=== PATIENT | female | born 1995 | race Caucasian/White ===

== ENCOUNTER 2022-12-18 20:08 | Outpatient (REF) | payer OTHER, SELFPAY ==
[2022-12-25 16:10] LABS: Pap IG (Image Guided) Note (.)
== END 2022-12-18 20:09 | disposition home or self-care (01) ==
LOC: LAB 20:08
PROVIDERS: Visit Provider Obstetrics & Gynecology
DX: R87.610 Atypical squamous cells of undetermined significance on cytologic smear of cervix (ASC-US) (principal)
CPT/HCPCS: G0145

== ENCOUNTER 2022-12-24 09:11 | Outpatient (OUT) | payer OTHER, SELFPAY ==
--- NOTE | 2022-12-24 09:36 | US_ITS ---
The [address] [address] Patient Name: DOREEN MARQUEZ MRN: [id number] date: 1995 Sex: F Assigned Patient Location: Current Patient Location: Accession/Order Number: [id number] Exam Date: 12/24/2022 09:40 Report Date: 12/24/2022 10:43 At the request of: GILLES DIEGO Procedure: US pelvis transvaginal EXAM: Pelvic ultrasound HISTORY: . Irregular Periods N92.6 . COMPARISON: None. TECHNIQUE: Transvaginal scanning was performed FINDINGS: Scanning of the pelvis demonstrates an anteverted uterus measuring 8.5 x 4.3 x 3.3 cm. Endometrial complex measures 8 mm. Left ovary measures 5 x 3 x 2.4 cm. Color-flow is noted. Follicles are noted. Right ovary measures 4.9 x 3 x 2.7 cm. Color-flow is noted. Follicles are noted. No fluid is noted in the cul-de-sac. US/US pelvis transvaginal IMPRESSION: 1. Normal-appearing uterus and endometrial complex. 2. Normal-appearing ovaries. Electronically authenticated by: NAYA LO Date: 12/24/2022 10:43
[2022-12-24 10:11] LABS: Basophils Absolute Auto 0.1 10^3/uL (0.0-0.1); Basophils Percent Auto 0.9 % (0.2-2.0); Eosinophils Absolute Auto 0.3 10^3/uL (0.0-0.7); Eosinophils Percent Auto 2.1 % (0.9-7.0); Hematocrit 42.2 % (36.0-48.0); Immature Granulocytes Abs Auto 0.05 10^3/uL (0.00-0.03); Immature Granulocytes Pct Auto 0.4 % (0.0-0.5); Lymphocytes Absolute Auto 4.2 10^3/uL (1.2-3.8); Lymphocytes Percent Auto 35.8 % (20.5-60.0); Mean Corpuscular HGB Conc 30.8 g/dL (29.9-35.2); Mean Corpuscular Volume 81.3 fL (81.0-99.0); Mean Platelet Volume 10.2 fL (9.5-13.5); Neutrophils Absolute Auto 6.2 10^3/uL (1.4-6.5); Neutrophils Percent Auto 52.8 % (43.0-75.0); Platelet Count 371 10^3/uL (150-450); Red Blood Count 5.19 10^6/uL (4.20-5.40); Red Cell Distribution Width 14.9 % (11.0-15.0); White Blood Count 11.8 10^3/uL (4.0-11.0)
[2022-12-24 10:22] LABS: Free T4 1.01 ng/dL (0.76-1.46)
[2022-12-24 10:27] LABS: HCG Quantitative <1 mIU/mL; Thyroid Stimulating Hormone 1.103 uIU/mL (0.358-3.740)
[2022-12-24 11:19] LABS: Estimated Average Glucose 117 mg/dL; Glycohemoglobin A1C 5.7 % (4.5-6.2)
[2022-12-25 04:07] LABS: FSH 5.2 mIU/mL (.); Luteinizing Hormone(LH) 11.8 mIU/mL (.)
[2022-12-27 12:10] LABS: DHEA, Serum 338 ng/dL (31-701)
== END 2022-12-24 09:12 | disposition home or self-care (01) ==
PROVIDERS: Visit Provider Obstetrics & Gynecology
DX: N92.6 Irregular menstruation, unspecified (principal)
CPT/HCPCS: 36415; 76830; 82626; 82627; 83001; 83002; 83036; 84439; 84443; 84702; 85025

== ENCOUNTER 2023-10-21 11:56 | Outpatient (OUT) | payer OTHER, SELFPAY ==
--- NOTE | 2023-10-21 12:01 | US_ITS ---
[address] [address] Patient Name: DOREEN MARQUEZ MRN: [id number] date: 1995 Sex: F Assigned Patient Location: US Current Patient Location: US Accession/Order Number: [id number] Exam Date: 10/21/2023 12:03 Report Date: 10/21/2023 12:45 At the request of: GILLES DIEGO Procedure: US OB transvaginal EXAMINATION: US OB transvaginal HISTORY: Spotting in early COMPARISON: No relevant comparison available. FINDINGS: Transvaginal images Wood intrauterine gestation Gestational sac: 1.60 cm, 5 weeks 6 days CRL: 5.4 mm, 6 weeks 2 days Yolk sac: 1.6 mm Heart rate: 125 beats minute Cervix: Closed, 5.0 cm The uterus is normal, anteverted The ovaries are normal Clinical age: Unknown Ultrasound age: 6 weeks 2 days Ultrasound MARIELLA: 06/13/2024 US/US OB transvaginal IMPRESSION: Viable wood intrauterine gestation measuring 6 weeks 2 days Electronically authenticated by: NAYA FREEMAN Date: 10/21/2023 12:45
== END 2023-10-21 11:57 | disposition home or self-care (01) ==
LOC: US 11:56
PROVIDERS: Visit Provider Obstetrics & Gynecology
DX: O26.851 Spotting complicating pregnancy, first trimester (principal); Z3A.01 Less than 8 weeks gestation of pregnancy
CPT/HCPCS: 76817

== ENCOUNTER 2023-11-22 08:48 | Outpatient (OUT) | payer OTHER, SELFPAY ==
[2023-11-22 09:27] LABS: Basophils Absolute Auto 0.1 10^3/uL (0.0-0.1); Basophils Percent Auto 0.4 % (0.2-2.0); Eosinophils Absolute Auto 0.2 10^3/uL (0.0-0.7); Eosinophils Percent Auto 1.5 % (0.9-7.0); Hematocrit 39.4 % (36.0-48.0); Hemoglobin 12.8 g/dL (12.0-16.0); Immature Granulocytes Abs Auto 0.04 10^3/uL (0.00-0.03); Immature Granulocytes Pct Auto 0.3 % (0.0-0.5); Lymphocytes Absolute Auto 3.4 10^3/uL (1.2-3.8); Lymphocytes Percent Auto 26.5 % (20.5-60.0); Mean Corpuscular HGB Conc 32.5 g/dL (29.9-35.2); Mean Corpuscular Hemoglobin 25.7 pg (26.7-34.0); Mean Platelet Volume 10.6 fL (9.5-13.5); Monocytes Percent Auto 7.4 % (1.7-12.0); Neutrophils Absolute Auto 8.3 10^3/uL (1.4-6.5); Neutrophils Percent Auto 63.9 % (43.0-75.0); Platelet Count 345 10^3/uL (150-450); Red Blood Count 4.99 10^6/uL (4.20-5.40); Red Cell Distribution Width 14.8 % (11.0-15.0); White Blood Count 12.9 10^3/uL (4.0-11.0)
[2023-11-22 09:32] LABS: Estimated Average Glucose 108 mg/dL; Glycohemoglobin A1C 5.4 % (4.5-6.2)
[2023-11-23 06:10] LABS: HBsAg Screen Negative (Negative); HCV Ab Non Reactive (Non Reactive); HIV Ab/p24 Ag Screen Non Reactive (Non Reactive)
[2023-11-23 07:09] LABS: Rubella Antibodies, IgG 2.35 index (Immune >0.99)
[2023-11-23 10:12] LABS: Rapid Plasma Reagin, Quant Non Reactive titer (NonRea<1:1)
== END 2023-11-22 08:49 | disposition home or self-care (01) ==
LOC: LAB 08:50
PROVIDERS: Visit Provider Obstetrics & Gynecology
DX: N92.6 Irregular menstruation, unspecified (principal)
CPT/HCPCS: 36415; 83036; 85025; 86592; 86762; 86803; 86850; 86900; 86901; 87086; 87340; 87389

== ENCOUNTER 2023-12-11 07:46 | Outpatient (OUT) | payer OTHER, SELFPAY ==
--- OUTSIDE RECORDS SUMMARY | 2023-12-11 07:53 | XMS_ITS | CCD ---
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 Role Phone FIDENCIO ANDRES Primary Care Unavailable FIDENCIO ANDRES Attending Unavailable FIDENCIO ANDRES Admitting Unavailable JOHNATHON, DR CAMPOVERDE Admitting Unavailable JOHNATHON, DR CAMPOVERDE Consulting Unavailable JOHNATHON, DR CAMPOVERDE Attending Unavailable FIDENCIO ANDRES Primary Care Unavailable Ny Allison APRN, CNP Primary Care [facility] [place]EL Referring Unavailable [place]EL Primary Care Unavailable Problems Problem Classification Problem Date Documented Date Episodic/Chronic Immunizations and screening for infectious disease (1 source) Encounter for screening for human papillomavirus (HPV); Translations: [ENC SCREENING HUMAN PAPILLOMAVIRUS] Onset: 12-17-2021 Episodic Other screening for suspected conditions (not mental disorders or infectious disease) (10 sources) Encounter for screening for malignant neoplasm of cervix; Translations: [Patient encounter status] Onset: 12-14-2021 Episodic Results Test Name Value Interpretation Reference Range [facility] ity Lipid Profileon 10-04-2022 Cholesterol [Mass/Vol] 172 mg/dL Normal <200 [facility] Comment on above: Result Comment: Cholesterol Guidelines: <200 Desirable 200-240 Borderline >240 Undesirable Performed By: #### L IPR #### [facility] [address] [place], [place] [id number] Senior Corporate Recruiter: Erik Redding MD Cholesterol in HDL [Mass/Vol] 36 mg/dL Low >40 [facility] Comment on above: Result Comment: HDL Guidelines: <40 Undesirable 40-59 Borderline >59 Desirable Performed By: #### L IPR #### [facility] [address] [place] [address] Senior Corporate Recruiter: Erik Redding MD Cholesterol in LDL [Mass/Vol] 79 mg/dL Normal 0-130 [facility] Comment on above: Result Comment: LDL Guidelines: <100 Desirable 100-129 Near to/above Desirable 130-159 Borderline >159 Undesirable Direct (measured) LDL and calculated LDL are not interchangeable tests. Performed By: #### L IPR #### [address] [address] Senior Corporate Recruiter: Erik Redding MD Cholesterol.total/Ch olesterol in HDL [Mass ratio] 4.8 {ratio} Normal <5 [facility] Comment on above: Performed By: #### L IPR #### [address] [address] Senior Corporate Recruiter: Erik Redding MD Triglyceride [Mass/Vol] 285 mg/dL High <150 [facility] Comment on above: Result Comment: Triglyceride Guidelines: <150 Desirable 150-199 Borderline 200-499 High >499 Very high Based on AHA Guidelines for fasting triglyceride, December 2011. Performed By: #### L IPR #### [address] [address] Senior Corporate Recruiter: Erik Redding MD T3, Freeon 10-04-2022 Free T3 [Mass/Vol] 3.76 pg/mL Normal 2.02-4.43 [facility] Comment on above: Performed By: #### F T3 #### [address] [address] Senior Corporate Recruiter: Erik Redding MD #### CMPF #### [facility] [address] [place] [address] Senior Corporate Recruiter: Hemant Murphy MD Comp Metabol,Fastingon 10-03 Albumin [Mass/Vol] 4.6 g/dL Normal 3.5-5.2 [facility] Comment on above: Performed By: #### F T3 #### [address] [address] Senior Corporate Recruiter: Erik Redding MD #### CMPF #### [facility] [address] [place], [place] [id number] Senior Corporate Recruiter: Hemant Murphy MD Albumin/Glob Ratio 1.3 Normal 1.0-2.5 [facility] Comment on above: Performed By: #### F T3 #### [facility] [address] [place] [address] Senior Corporate Recruiter: Erik Redding MD #### CMPF #### [facility] [address] [place], [place] [id number] Senior Corporate Recruiter: Hemant Murphy MD Alkaline Phos 91 U/L Normal 35-104 [facility] Comment on above: Performed By: #### F T3 #### [address] [place] [address] Senior Corporate Recruiter: Eirk Redding MD #### CMPF #### [facility] [address] [place] [address] [place] [place], [place] [phone] Senior Corporate Recruiter: Hemant Murphy MD ALT [Catalytic activity/Vol] 39 U/L High 5-33 [facility] Comment on above: Performed By: #### F T3 #### [facility] [address] [place] [address] Senior Corporate Recruiter: Erik Redding MD #### CMPF #### [facility] [address] [place] [address] [place], [place] [id number] Senior Corporate Recruiter: Hemant Murphy MD Anion gap [Moles/Vol] 13 mmol/L Normal 9-17 [facility] Comment on above: Performed By: #### F T3 #### [address] [address] Senior Corporate Recruiter: Eirk Redding MD #### CMPF #### [facility] [address] [place] [address] [place] [place], [place] [phone] Senior Corporate Recruiter: Hemant Murphy MD AST [Catalytic activity/Vol] 34 U/L High <32 [facility] Comment on above: Performed By: #### F T3 #### [facility] [address] [place] [address] Senior Corporate Recruiter: Erik Redding MD #### CMPF #### [facility] [address] [place], [place] [phone] Senior Corporate Recruiter: Hemant Murphy MD Bilirubin [Mass/Vol] 0.8 mg/dL Normal 0.3-1.2 [facility] Comment on above: Performed By: #### F T3 #### [address] [place] [address] Senior Corporate Recruiter: Erik Redding MD #### CMPF #### [facility] [address] [place] [phone] Senior Corporate Recruiter: Hemant Murphy MD BUN/CRE Ratio 20 Normal 9-20 [facility] Comment on above: Performed By: #### F T3 #### [address] [place] [address] Senior Corporate Recruiter: Erik Redding MD #### CMPF #### [facility] [address] [place] [address] [address] [place], [place] [phone] Senior Corporate Recruiter: Hemant Murphy MD Calcium [Mass/Vol] 9.2 mg/dL Normal 8.6-10.4 [facility] Comment on above: Performed By: #### F T3 #### [facility] [address] [place] [address] Senior Corporate Recruiter: Erik Redding MD #### CMPF #### [facility] [address] [place], [place] [address] Senior Corporate Recruiter: Hemant Murpyh MD Chloride [Moles/Vol] 101 mmol/L Normal 98-107 [facility] Comment on above: Performed By: #### F T3 #### [address] [place] [address] Senior Corporate Recruiter: Erik Redding MD #### CMPF #### [facility] [address] [place] [address] Senior Corporate Recruiter: Hemant Murphy MD CO2 [Moles/Vol] 22 mmol/L Normal 20-31 [facility] Comment on above: Performed By: #### F T3 #### [address] [address] Senior Corporate Recruiter: Erik Redding MD #### CMPF #### [facility] [address] [place] [address] Senior Corporate Recruiter: Hemant Murphy MD Creatinine [Mass/Vol] 0.54 mg/dL Normal 0.50-0.90 [facility] Comment on above: Performed By: #### F T3 #### [address] [address] Senior Corporate Recruiter: Erik Redding MD #### CMPF #### [facility] [address] [place] [address] [place] [address] Senior Corporate Recruiter: Hemant Murphy MD GFR/1.73 sq M.predicted among non-blacks MDRD (S/P/Bld) [Vol rate/Area] mL/min/{1.73_m2} Normal >60 [facility] Comment on above: Result Comment: These results are not intended for use in patients <18 years of age. eGFR results are calculated without a race factor using the 2020 CKD-EPI equation. Careful clinical correlation is recommended, particularly when comparing to results calculated using previous equations. The CKD-EPI equation is less accurate in patients with extremes of muscle mass, extra-renal metabolism of creatine, excessive creatine ingestion, or following therapy that affects renal tubular secretion. Performed By: #### F T3 #### [address] [address] Senior Corporate Recruiter: Erik Redding MD #### CMPF #### [address] [place], [place] [phone] Senior Corporate Recruiter: Hemant Murphy MD Glucose [Mass/Vol] 88 mg/dL Normal 70-99 [facility] Comment on above: Performed By: #### F T3 #### [address] [address] Senior Corporate Recruiter: Erik Redding MD #### CMPF #### [address] [place], [place] [phone] Senior Corporate Recruiter: Hemant Murphy MD Potassium [Moles/Vol] 4.3 mmol/L Normal 3.7-5.3 [facility] Comment on above: Performed By: #### F T3 #### [address] [address] Senior Corporate Recruiter: Erik Redding MD #### CMPF #### [address] [place], [place] [phone] Senior Corporate Recruiter: Hemant Murphy MD Protein [Mass/Vol] 8.1 g/dL Normal 6.4-8.3 [facility] Comment on above: Performed By: #### F T3 #### [address] [address] Senior Corporate Recruiter: Erik Redding MD #### CMPF #### [address] [place] [address] Senior Corporate Recruiter: Hemant Murphy MD Sodium [Moles/Vol] 136 mmol/L Normal 135-144 [facility] Comment on above: Performed By: #### F T3 #### [address] [address] Senior Corporate Recruiter: Erik Redding MD #### CMPF #### [address] [place], [place] [phone] Senior Corporate Recruiter: Hemant Murphy MD Urea nitrogen [Mass/Vol] 11 mg/dL Normal 6-20 [facility] Comment on above: Performed By: #### F T3 #### [facility] [employer] [address] [place], [place] [phone] Senior Corporate Recruiter: Erik Redding MD #### CMPF #### [facility] [address] [place] [address] Senior Corporate Recruiter: Hemant Murphy MD Comprehensive Metabolic Pane l, Fastingon 10-03-2022 Albumin [Mass/Vol] 4.6 g/dL 3.5 - 5.2 g/dL [facility] Albumin/Globulin [Mass ratio] 1.3 {ratio} 1.0 - 2.5 [facility] ALP [Catalytic activity/Vol] 91 U/L 35 - 104 U/L [facility] ALT [Catalytic activity/Vol] 39 U/L High 5 - 33 U/L [facility] Anion gap [Moles/Vol] 13 mmol/L 9 - 17 mmol/L [facility] AST [Catalytic activity/Vol] 34 U/L High NINF - 32 U/L [facility] Bilirubin [Mass/Vol] 0.8 mg/dL 0.3 - 1.2 mg/dL [facility] Calcium [Mass/Vol] 9.2 mg/dL 8.6 - 10. 4 mg/dL [facility] Chloride [Moles/Vol] 101 mmol/L 98 - 107 mmol/L [facility] CO2 [Moles/Vol] 22 mmol/L 20 - 31 mmol/L [facility] Creatinine [Mass/Vol] 0.54 mg/dL 0.50 - 0.90 mg/dL [facility] GFR/1.73 sq M.predicted MDRD (S/P/Bld) [Vol rate/Area] - PINF [facility] Comment on above: These results are not intended for use in patients <18 years of age. eGFR results are calculated without a race factor using the 2020 CKD-EPI equation. Careful clinical correlation is recommended, particularly when comparing to results calculated using previous equations. The CKD-EPI equation is less accurate in patients with extremes of muscle mass, extra-renal metabolism of creatine, excessive creatine ingestion, or following therapy that affects renal tubular secretion. Glucose post fast [Mass/Vol] 88 mg/dL 70 - 99 mg/dL [facility] Interpretation and review of laboratory results Abnormal [facility] Potassium [Moles/Vol] 4.3 mmol/L 3.7 - 5.3 mmol/L [facility] Protein [Mass/Vol] 8.1 g/dL 6.4 - 8.3 g/dL [facility] Sodium [Moles/Vol] 136 mmol/L 135 - 144 mmol/L [facility] Urea nitrogen [Mass/Vol] 11 mg/dL 6 - 20 mg/dL [facility] [employer] Urea nitrogen/Creatinine [Mass ratio] 20 mg/mg 9 - 20 [facility] Lipid Panelon 10-03-2022 Cholesterol [Mass/Vol] 172 mg/dL NINF - 200 mg/dL [facility] Comment on above: Cholesterol Guidelines: <200 Desirable 200-240 Borderline >240 Undesirable Cholesterol in HDL [Mass/Vol] 36 mg/dL Low 40 - PINF mg/dL [facility] [employer] Comment on above: HDL Guidelines: <40 Undesirable 40-59 Borderline >59 Desirable Cholesterol in LDL [Mass/Vol] 79 mg/dL 0 - 130 mg/dL [facility] Comment on above: LDL Guidelines: <100 Desirable 100-129 Near to/above Desirable 130-159 Borderline >159 Undesirable Direct (measured) LDL and calculated LDL are not interchangeable tests. Cholesterol.total/Ch olesterol in HDL [Mass ratio] 4.8 {ratio} NINF - 5 [facility] Interpretation and review of laboratory results Abnormal [facility] Triglyceride [Mass/Vol] 285 mg/dL High NINF - 150 mg/dL [facility] [employer] Comment on above: Triglyceride Guidelines: <150 Desirable 150-199 Borderline 200-499 High >499 Very high Based on AHA Guidelines for fasting triglyceride, December 2011. [facility] [employer] T3, Freeon 10-03-2022 Free T3 [Mass/Vol] 3.76 pg/mL 2.02 - 4. 43 pg/mL [facility] TSH With Reflex Ft4on 2022 TSH Qn 1.66 m[IU]/L [facility] TSH w/reflex to FT4on 2022 Thyroid Stim. Horm. 1.66 uIU/mL Normal 0.30-5.00 [facility] Comment on above: Performed By: #### T SHX #### [facility] [address] [place], [facility] Senior Corporate Recruiter: Hemant Murphy MD PAP ACOG PANEL 2: 21 to 29on 12-20-2021 . . Normal [facility] Comment on above: Performed By: #### [id number] #### [facility] [address] [place] [address] Dr. Sachin Pereira Age Gdln ACOG Testing - [facility] Comment on above: Performed By: #### [id number] #### [facility] [address] [place] [address] Dr. Sachin Pereira DIAGNOSIS: Comment [facility] Comment on above: Result Comment: NEGA TIVE FOR INTRAEPITHELIAL LESION OR MALIGNANCY. Performed By: #### [id number] #### [facility] [address] [place] [address] Dr. Sachin Pereira Methodology: Comment [facility] Comment on above: Result Comment: This liquid based ThinPrep(R) pap test was screened with the use of an image guided system. Performed By: #### [id number] #### [facility] [address] [place] [address] Dr. Sachin Pereira Note: Comment [facility] Comment on above: Result Comment: The Pap smear is a screening test designed to aid in the detection of premalignant and malignant conditions of the uterine cervix. It is not a diagnostic procedure and should not be used as the sole means of detecting cervical cancer. Both false-positive and false-negative reports do occur. . Performed By: #### [id number] #### [facility] [address] [place] [address] Dr. Sachin Pereira Performed by: Comment Normal [facility] Comment on above: Result Comment: Collette Holliday, [employer] (ASCP) Performed By: #### [id number] #### [facility] [address] [address] [address] Sachin Pereira Reflex Criteria: Comment Normal [facility] Comment on above: Result Comment: The HPV DNA reflex criteria were not met with this specimen result therefore, no HPV testing was performed. . Performed By: #### [id number] #### [facility] [address] [address] [address] Sachin Pereira Specimen adequacy: Comment Normal [facility] Comment on above: Result Comment: Sati sfactory for evaluation. Endocervical and/or squamous metaplastic cells (endocervical component) are present. Performed By: #### 4 [id number] #### [facility] [address] [address] [address] Sachin Pereira Encounters Encounter Date Encounter Type Care Provider Facility Start: 11-08-2023 End: 11-08-2023 ambulatory Not Available Start: 10-03-2022 End: 10-04-2022 ambulatory [place] [facility] Start: 10-03-2022 End: 10-03-2022 Subsequent hospital visit by physician Ny Guillory CNP Work Phone: [facility] Comment on above: Screening for hypoth yroidism; Diabetes mellitus screening; Lipid screening Start: 12-14-2021 End: 12-14-[address] GILLES DIEGO Facility:H1 Start: 02-10-2021 ambulatory FID[place]IO [place] y:H1 Procedures Date Procedure Procedure Detail Performing Clinician Start: 10-03-2022 End: 10-03-2022 Assay of triiodothyronine t3 free Ny Guillory CNP Work Phone: Start: 10-03-2022 Lipid panel Ny Michael APRN - APRIL Work Phone: Plan of Treatment Date Care Activity Detail Author Start: 10-09-2023 End: 10-09-2023 Patient encounter procedure 10/09/2023 Office Visit Primary Care Ny Michael, CROP PRODUCTION ADVISOR - ENDOSCOPE TECHNICIAN [address] [id number] [facility] Start: 10-02-2023 Depression Screen Depression Screen [facility] Start: 10-02-2023 DTaP/Tdap/Td vaccine (1 - Tdap) DTaP/Tdap/Td vaccine (1 - Tdap) [facility] Comment on above: Postponed from 07/16 (Patient Refused) Start: 10-02-2023 Hepatitis C screening Hepatitis C sc reen [facility] Comment on above: Postponed from 07/16 (Patient Refused) Start: 10-02-2023 HIV screening HIV screen [facility] Comment on above: Postponed from 07/16 (Patient Refused) Start: 10-02-2023 HPV vaccine (1 - 2-d ose series) HPV vaccine (1 - 2-dose series) [facility] Comment on above: Postponed from 07/16 (Patient Refused) Start: 10-30-2022 Influenza vaccination Flu vaccine (# 1) [facility] Start: 05-01-2021 COVID-19 Vaccine (2 - Booster for Kinga series) COVID-19 Vaccine (2 - Booster for Kinga series) [facility] Start: 2017 Screening for malign ant neoplasm of cervix Pap smear [facility] Immunizations Immunization Date Immunization Notes Care Provider Fa cility 03-06-2021 COVID-19, J&J, (age 18y+), IM, 0.5 mL Ny Michael APRN - ENDOSCOPE TECHNICIAN Work Phone: [facility] Payers Date Payer Category Payer Private Health Insurance [id number] 1995 Unknown [id number] [id number] 1995 Unknown [id number] [id number] 1995 Unknown [id number] 1995 Unknown [id number] 1958 Self-pay [id number] 1958 Unknown [id number] Social History Date Type Detail Facility Start: 10-01-2022 [facility] [employer] End: 05-30-2021 History of tobacco use Current smoker [employer] End: 05-30-2021 History of tobacco use Cigarette Smoker [facility] History of tobacco use Tobacco U se Types Packs/Day Years Used Date Smoking Tobacco: Former Cigarettes 0.5 5 Quit: 05/2021 E-Cigarettes Smokeless Tobacco: Never [facility] [employer] Start: 10-01-2022 Cigarettes smoked current (pack per day) - Reported 0.5 [facility] Start: 10-01-2022 Tobacco use and exposure Smokeless tobacco non-user [facility] Start: 10-01-2022 Alcohol intake Ex-drinker (finding) [facility] Start: 10-01-2022 History SDOH Physica l Activity DPW 3 [employer] [employer] Start: 10-01-2022 History SDOH Physica l Activity MPS 6 [facility] Start: 10-01-2022 History SDOH Financial 5 [facility] Start: 10-01-2022 History SDOH Food Worry 1 [employer] Start: 10-01-2022 History SDOH Transpo rt Non-Med 2 [facility] Start: 10-01-2022 Alcohol Comment Socially [facility] Start: 1995 Sex Assigned At Female B ON [employer] Evaluation note Note Date & Type Note Facility Evaluation note Diagnosis Screening for hypothyroidism Screening for thyroid disorder Diabetes mellitus screening Screening for diabetes mellitus Lipid screening Screening for lipoid disorders documented in this encounter [facility] Summary Purpose Family History No Family History Records FoundNo Family History Records FoundNo Family History Records Found Advance Directives No Advanced Directives Records FoundNo Advanced Directives Records FoundNo Advanced Directives Records Found Additional Source Comments INFORMATION SOURCE (unrecogn ized section and content) DATE CREATED AUTHOR 12/29/2021 [facility] DATE CREATED AUTHOR AUTHOR'S ORGANIZ ATION 10/04/2022 [facility] DATE CREATED AUTHOR AUTHOR'S ORGANIZ ATION 11/10/2023 [facility] dical Specialists [facility] Care Teams (unrecognized sec tion and content) [employer] Job Setter Relationship Specialty Start Date End Date Ny Michael, CROP PRODUCTION ADVISOR - ENDOSCOPE TECHNICIAN [address] [place] [address] PCP - General Certified Nurse Practitioner 10/01/22 FOR RECORDS PERTAINING TO PATIENTS WHO ARE OR HAVE BEEN ENROLLED IN A CHEMICAL DEPENDENCY/SUBSTANCEABUSE PROGRAM, SOME INFORMATION MAY BE OMITTED. This clinical summary was aggregated from multiple sources. Caution should be exercised in using it in the provision of clinical care. This summary normalizes information from multiple sources, and as a consequence, information in this document may materially change the coding, format and clinical context of patient data. In addition, data may be omitted in some cases. CLINICAL DECISIONS SHOULD BE BASED ON THE PRIMARY CLINICAL RECORDS. [employer] provides no warranty or guarantee of the accuracy or completeness of information in this document.
[2023-12-11 09:19] LABS: Glucose 1 Hour 131 mg/dL (<130)
== END 2023-12-11 07:47 | disposition home or self-care (01) ==
LOC: LAB 07:47
PROVIDERS: Visit Provider Obstetrics & Gynecology
DX: Z13.1 Encounter for screening for diabetes mellitus (principal)
CPT/HCPCS: 36415; 82950

== ENCOUNTER 2023-12-26 19:38 | Outpatient (REF) | payer OTHER, SELFPAY ==
--- OUTSIDE RECORDS SUMMARY | 2023-12-26 19:41 | XMS_ITS | CCD ---
Author Organization [facility] Informat ion Partnership [facility] Care Team Providers Care Reel System Operator Name Role Phone FIDENCIO ANDRES Primary Care Unavailable FIDENCIO ANDRES Attending Unavailable FIDENCIO ANDRES Admitting Unavailable JOHNATHON, DR CAMPOVERDE Admitting Unavailable JOHNATHON, DR CAMPOVERDE Consulting Unavailable JOHNATHON, DR CAMPOVERDE Attending Unavailable FIDENCIO ANDRES Primary Care Unavailable Ny Allison APRN, CNP Primary Care [facility] [place] Referring Unavailable [place] [...] Results Test Name Value Interpretation Reference Range [facility] Lipid Profileon 10-04-2022 Cholesterol [Mass/Vol] 172 mg/dL Normal <200 [facility] Comment on above: Result Comment: Cholesterol Guidelines: <200 Desirable 200-240 Borderline >240 Undesirable Performed By: #### L IPR #### [facility] [address] [place], [place] [id number] Icing Coater: Erik Redding MD Cholesterol in HDL [Mass/Vol] 36 mg/dL Low >40 [facility] Comment on above: Result Comment: HDL Guidelines: <40 Undesirable 40-59 Borderline >59 Desirable Performed By: #### L IPR #### [facility] [address] [place] [address] Icing Coater: Erik Redding MD Cholesterol in LDL [Mass/Vol] 79 mg/dL Normal 0-130 [facility] Comment on above: Result Comment: LDL Guidelines: <100 Desirable 100-129 Near to/above Desirable 130-159 Borderline >159 Undesirable Direct (measured) LDL and calculated LDL are not interchangeable tests. Performed By: #### L IPR #### [address] [address] Icing Coater: Erik Redding MD Cholesterol.total/Ch olesterol in HDL [Mass ratio] 4.8 {ratio} Normal <5 [facility] Comment on above: Performed By: #### L IPR #### [address] [address] Icing Coater: Erik Redding MD Triglyceride [Mass/Vol] 285 mg/dL High <150 [facility] Comment on above: Result Comment: Triglyceride Guidelines: <150 Desirable 150-199 Borderline 200-499 High >499 Very high Based on AHA Guidelines for fasting triglyceride, December 2011. Performed By: #### L IPR #### [address] [address] Icing Coater: Erik Redding MD T3, Freeon 10-04-2022 Free T3 [Mass/Vol] 3.76 pg/mL Normal 2.02-4.43 [facility] Comment on above: Performed By: #### F T3 #### [address] [address] Icing Coater: Erik Redding MD #### CMPF #### [facility] [address] [place] [address] Icing Coater: Hemant Murphy MD Comp Metabol,Fastingon 10-03 Albumin [Mass/Vol] 4.6 g/dL Normal 3.5-5.2 [facility] Comment on above: Performed By: #### F T3 #### [address] [address] Icing Coater: Erik Redding MD #### CMPF #### [facility] [address] [place], [place] [id number] Icing Coater: Hemant Murphy MD Albumin/Glob Ratio 1.3 Normal 1.0-2.5 [facility] Comment on above: Performed By: #### F T3 #### [facility] [address] [place] [address] Icing Coater: Erik Redding MD #### CMPF #### [facility] [address] [place], [place] [id number] Icing Coater: Hemant Murphy MD Alkaline Phos 91 U/L Normal 35-104 [facility] Comment on above: Performed By: #### F T3 #### [address] [place] [address] Icing Coater: Erik Redding MD #### CMPF #### [facility] [address] [place] [address] [place] [place], [place] [phone] Icing Coater: Hemant Murphy MD ALT [Catalytic activity/Vol] 39 U/L High 5-33 [facility] Comment on above: Performed By: #### F T3 #### [facility] [address] [place] [address] Icing Coater: Erik Redding MD #### CMPF #### [facility] [address] [place] [address] Dr. [place], [place] [phone] Icing Coater: Hemant Murphy MD Anion gap [Moles/Vol] 13 mmol/L Normal 9-17 [facility] Comment on above: Performed By: #### F T3 #### [address] [address] Icing Coater: Erik Redding MD #### CMPF #### [facility] [address] [place] [address] [address] [place], [place] [phone] Icing Coater: Hemant Murphy MD AST [Catalytic activity/Vol] 34 U/L High <32 [facility] Comment on above: Performed By: #### F T3 #### [facility] [address] [place] [address] Icing Coater: Erik Redding MD #### CMPF #### [facility] [address] [place], [place] [phone] Icing Coater: Hemant Murphy MD Bilirubin [Mass/Vol] 0.8 mg/dL Normal 0.3-1.2 [facility] Comment on above: Performed By: #### F T3 #### [address] [place] [address] Icing Coater: Erik Redding MD #### CMPF #### [facility] [address] [place] [phone] Icing Coater: Hemant Murphy MD BUN/CRE Ratio 20 Normal 9-20 [facility] Comment on above: Performed By: #### F T3 #### [address] [place] [address] Icing Coater: Erik Redding MD #### CMPF #### [facility] [address] [place] [address] Dr. [place], [place] [phone] Icing Coater: Hemant Murphy MD Calcium [Mass/Vol] 9.2 mg/dL Normal 8.6-10.4 [facility] Comment on above: Performed By: #### F T3 #### [facility] [address] [place] [address] Icing Coater: Erik Redding MD #### CMPF #### [facility] [address] [place], [place] [phone] Icing Coater: Hemant Murphy MD Chloride [Moles/Vol] 101 mmol/L Normal 98-107 [facility] Comment on above: Performed By: #### F T3 #### [address] [place] [address] Icing Coater: Erik Redding MD #### CMPF #### [facility] [address] [place] [address] Icing Coater: Hemant Murphy MD CO2 [Moles/Vol] 22 mmol/L Normal 20-31 [facility] Comment on above: Performed By: #### F T3 #### [address] [address] Icing Coater: Erik Redding MD #### CMPF #### [facility] [address] [place] [address] Icing Coater: Hemant Murphy MD Creatinine [Mass/Vol] 0.54 mg/dL Normal 0.50-0.90 [facility] Comment on above: Performed By: #### F T3 #### [address] [address] Icing Coater: Erik Redding MD #### CMPF #### [facility] [address] [place] [address] [place] [address] Icing Coater: Hemant Murphy MD GFR/1.73 sq M.predicted among non-blacks MDRD (S/P/Bld) [Vol rate/Area] mL/min/{1.73_m2} Normal >60 [facility] Comment on above: Result Comment: These [...] secretion. Performed By: #### F T3 #### [address] [address] Icing Coater: Erik Redding MD #### CMPF #### [address] [place], [place] [phone] Icing Coater: Hemant Murphy MD Glucose [Mass/Vol] 88 mg/dL Normal 70-99 [facility] Comment on above: Performed By: #### F T3 #### [address] [address] Icing Coater: Erik Redding MD #### CMPF #### [address] [place], [place] [address] Icing Coater: Hemant Murphy MD Potassium [Moles/Vol] 4.3 mmol/L Normal 3.7-5.3 [facility] Comment on above: Performed By: #### F T3 #### [address] [address] Icing Coater: Erik Redding MD #### CMPF #### [address] [place], [place] [address] Icing Coater: Hemant Murphy MD Protein [Mass/Vol] 8.1 g/dL Normal 6.4-8.3 [facility] Comment on above: Performed By: #### F T3 #### [address] [address] Icing Coater: Erik Redding MD #### CMPF #### [address] [place] [address] Icing Coater: Hemant Murphy MD Sodium [Moles/Vol] 136 mmol/L Normal 135-144 [facility] Comment on above: Performed By: #### F T3 #### [address] [address] Icing Coater: Erik Redding MD #### CMPF #### [address] [place], [place] [address] Icing Coater: Hemant Murphy MD Urea nitrogen [Mass/Vol] 11 mg/dL Normal 6-20 [facility] Comment on above: Performed By: #### F T3 #### [facility] [employer] [address] [place], [place] [id number] Icing Coater: Erik Redding MD #### CMPF #### [facility] [address] [place] [address] Icing Coater: Hemant Murphy MD Comprehensive Metabolic Pane l, Fastingon 10-03-2022 Albumin [Mass/Vol] 4.6 g/dL 3.5 - 5.2 g/dL [facility] Albumin/Globulin [Mass ratio] 1.3 {ratio} 1.0 - 2.5 [facility] ALP [Catalytic activity/Vol] 91 U/L 35 - 104 U/L [facility] ALT [Catalytic activity/Vol] 39 U/L High 5 - 33 U/L [facility] Anion gap [Moles/Vol] 13 mmol/L 9 - 17 mmol/L [facility] AST [Catalytic activity/Vol] 34 U/L High NINF - 32 U/L [facility] Bilirubin [Mass/Vol] 0.8 mg/dL 0.3 - 1.2 mg/dL [facility] Calcium [Mass/Vol] 9.2 mg/dL 8.6 - 10. 4 mg/dL [facility] Chloride [Moles/Vol] 101 mmol/L 98 - 107 mmol/L [facility] CO2 [Moles/Vol] 22 mmol/L 20 - 31 mmol/L [facility] Creatinine [Mass/Vol] 0.54 mg/dL 0.50 - 0.90 mg/dL [facility] GFR/1.73 sq M.predicted MDRD (S/P/Bld) [Vol rate/Area] - PINF [facility] Comment on above: These results are not [...] [Mass/Vol] 88 mg/dL 70 - 99 mg/dL [facility] Interpretation and review of laboratory results Abnormal [facility] Potassium [Moles/Vol] 4.3 mmol/L 3.7 - 5.3 mmol/L [facility] Protein [Mass/Vol] 8.1 g/dL 6.4 - 8.3 g/dL [facility] Sodium [Moles/Vol] 136 mmol/L 135 - 144 mmol/L [facility] Urea nitrogen [Mass/Vol] 11 mg/dL 6 - 20 mg/dL [facility] [place] Urea nitrogen/Creatinine [Mass ratio] 20 mg/mg 9 - 20 [facility] Lipid Panelon 10-03-2022 Cholesterol [Mass/Vol] 172 mg/dL NINF - 200 mg/dL [facility] Comment on above: Cholesterol Guidelines: <200 Desirable 200-240 Borderline >240 Undesirable Cholesterol in HDL [Mass/Vol] 36 mg/dL Low 40 - PINF mg/dL [facility] [place] Comment on above: HDL Guidelines: <40 Undesirable 40-59 Borderline >59 Desirable Cholesterol in LDL [Mass/Vol] 79 mg/dL 0 - 130 mg/dL [facility] Comment on above: LDL Guidelines: <100 Desirable 100-129 Near to/above Desirable 130-159 Borderline >159 Undesirable Direct (measured) LDL and calculated LDL are not interchangeable tests. Cholesterol.total/Ch olesterol in HDL [Mass ratio] 4.8 {ratio} NINF - 5 [facility] Interpretation and review of laboratory results Abnormal [facility] Triglyceride [Mass/Vol] 285 mg/dL High NINF - 150 mg/dL [facility] [place] Comment on above: Triglyceride Guidelines: <150 Desirable 150-199 Borderline 200-499 High >499 Very high Based on AHA Guidelines for fasting triglyceride, December 2011. [facility] [place] T3, Freeon 10-03-2022 Free T3 [Mass/Vol] 3.76 pg/mL 2.02 - 4. 43 pg/mL [facility] TSH With Reflex Ft4on 2022 TSH Qn 1.66 m[IU]/L [facility] TSH w/reflex to FT4on 2022 Thyroid Stim. Horm. 1.66 uIU/mL Normal 0.30-5.00 [facility] Comment on above: Performed By: #### T SHX #### [facility] [address] [place], [id number] Icing Coater: Hemant Murphy MD PAP ACOG PANEL 2: 21 to 29on 12-20-2021 . . Normal [facility] Comment on above: Performed By: #### 4 [id number] #### [facility] [address] [place] [address] Dr. Sachin Pereira Age Gdln ACOG Testing - [facility] Comment on above: Performed By: #### 4 [id number] #### [facility] [address] [place] [address] Dr. Sachin Pereira DIAGNOSIS: Comment [facility] Comment on above: Result Comment: NEGA TIVE FOR INTRAEPITHELIAL LESION OR MALIGNANCY. Performed By: #### 4 [id number] #### [facility] [address] [place] [address] Dr. Sachin Pereira Methodology: Comment [facility] Comment on above: Result Comment: This liquid based ThinPrep(R) pap test was screened with the use of an image guided system. Performed By: #### 4 [id number] #### [facility] [address] [place] [address] Dr. Sachin Pereira Note: Comment [facility] Comment on above: Result Comment: The Pap smear is a screening test designed to aid in the detection of premalignant and malignant conditions of the uterine cervix. It is not a diagnostic procedure and should not be used as the sole means of detecting cervical cancer. Both false-positive and false-negative reports do occur. . Performed By: #### 4 [id number] #### [facility] [address] [place] [address] Dr. Sachin Pereira Performed by: Comment Normal [facility] Comment on above: Result Comment: Collette Holliday, Photo Retoucher (ASCP) Performed By: #### 4 [id number] #### [facility] [address] [address] [address] Sachin Pereira Reflex Criteria: Comment Normal [facility] Comment on above: Result Comment: The HPV DNA reflex criteria were not met with this specimen result therefore, no HPV testing was performed. . Performed By: #### 4 [id number] #### [facility] [address] [address] [address] Sachin Pereira Specimen adequacy: Comment Normal [facility] Comment on above: Result Comment: Sati sfactory for evaluation. Endocervical and/or squamous metaplastic cells (endocervical component) are present. Performed By: #### 4 [id number] #### [facility] [address] [address] [address] Sahcin Pereira Encounters Encounter Date Encounter Type Care Provider Facility Start: 11-08-2023 End: 11-08-2023 ambulatory Not Available Start: 10-03-2022 End: 10-04-2022 ambulatory [place] [facility] Start: 10-03-2022 End: 10-03-2022 Subsequent hospital visit by physician Ny Guillory CNP Work Phone: [facility] Comment on above: Screening for hypoth [...] 10/09/2023 Office Visit Primary Care Ny Michael, PUBLIC POLICY COORDINATOR - DONOR TECHNICIAN [address] [phone] [facility] Start: 10-02-2023 Depression Screen Depression Screen [facility] Start: 10-02-2023 DTaP/Tdap/Td vaccine (1 - Tdap) DTaP/Tdap/Td vaccine (1 - Tdap) [facility] Comment on above: Postponed from 07/16 (Patient Refused) Start: 10-02-2023 Hepatitis C screening Hepatitis C sc reen [facility] Comment on above: Postponed from 07/16 (Patient Refused) Start: 10-02-2023 HIV screening HIV screen [facility] Comment on above: Postponed from 07/16 (Patient Refused) Start: 10-02-2023 HPV vaccine (1 - 2-d ose series) HPV vaccine (1 - 2-dose series) [facility] Comment on above: Postponed from 07/16 (Patient Refused) Start: 10-30-2022 Influenza vaccination Flu vaccine (# 1) [facility] Start: 05-01-2021 COVID-19 Vaccine (2 - Booster for Kinga series) COVID-19 Vaccine (2 - Booster for Kinga series) [facility] Start: 2017 Screening for malign ant neoplasm of cervix Pap smear [facility] Immunizations Immunization Date Immunization Notes Care Provider Fa cility 03-06-2021 COVID-19, J&J, (age 18y+), IM, 0.5 mL Ny Michael APRN - DONOR TECHNICIAN Work Phone: [facility] Payers Date Payer Category Payer Private Health Insurance [id number] 1996 Unknown [id number] [id number] 1996 Unknown [id number] 1996 Unknown [id number] 1996 Unknown [id number] 1959 Self-pay [id number] 1959 Unknown [id number] Social History Date Type Detail Facility Start: 10-01-2022 [facility] End: 05-30-2021 History of tobacco use Current smoker [employer] End: 05-30-2021 History of tobacco use Cigarette Smoker [employer] [facility] History of tobacco use Tobacco U se Types Packs/Day Years Used Date Smoking Tobacco: Former Cigarettes 0.5 5 Quit: 05/2021 E-Cigarettes Smokeless Tobacco: Never [facility] [employer] Start: 10-01-2022 Cigarettes smoked current (pack per day) - Reported 0.5 [facility] Start: 10-01-2022 Tobacco use and exposure Smokeless tobacco non-user [facility] Start: 10-01-2022 Alcohol intake Ex-drinker (finding) [facility] Start: 10-01-2022 History SDOH Physica l Activity DPW 3 [facility] Start: 10-01-2022 History SDOH Physica l Activity MPS 6 [facility] Start: 10-01-2022 History SDOH Financial 5 [facility] Start: 10-01-2022 History SDOH Food Worry 1 [employer] [facility] Start: 10-01-2022 History SDOH Transpo rt Non-Med 2 [employer] [facility] Start: 10-01-2022 Alcohol Comment Socially [employer] Start: 1995 Sex Assigned At Female B ON [employer] Evaluation note Note Date & Type Note Facility Evaluation note Diagnosis Screening for hypothyroidism Screening for thyroid disorder Diabetes mellitus screening Screening for diabetes mellitus Lipid screening Screening for lipoid disorders documented in this encounter [facility] Summary Purpose Family History No Family History [...] DATE CREATED AUTHOR AUTHOR'S ORGANIZ ATION 11/10/2023 [facility] Care Teams (unrecognized sec tion and content) Reel System Operator Relationship Specialty Start Date End Date Ny Michael, PUBLIC POLICY COORDINATOR - DONOR TECHNICIAN [address] [place] [address] PCP - General Certified Nurse Practitioner 10/01/22 [...] BE BASED ON THE PRIMARY CLINICAL RECORDS. [employer] provides no warranty or guarantee of the accuracy or completeness of information in this document.
[2024-01-02 11:11] LABS: Age Gdln ACOG Testing Note (.); IGP, rfx Aptima HPV ASCU Note (.)
== END 2023-12-26 19:39 | disposition home or self-care (01) ==
LOC: LAB 19:38
PROVIDERS: Visit Provider Obstetrics & Gynecology
DX: Z01.419 Encounter for gynecological examination (general) (routine) without abnormal findings (principal)
CPT/HCPCS: 88175

== ENCOUNTER 2024-01-23 09:58 | Outpatient (OUT) | payer OTHER, SELFPAY ==
--- NOTE | 2024-01-23 10:01 | US_ITS ---
[address] [address] Patient Name: DOREEN MARQUEZ MRN: [id number] date: 1995 Sex: F Assigned Patient Location: [facility] Current Patient Location: [facility] Accession/Order Number: [id number] Exam Date: 01/23/2024 10:03 Report Date: 01/23/2024 11:30 At the request of: GILLES DIEGO Procedure: US OB anatomy EXAMINATION: US OB anatomy, US OB cervical length HISTORY: ANATOMY COMPARISON: Ultrasound OB transvaginal 10/21/2023 TECHNIQUE: Transabdominal sonographic examination was performed for obstetrical and evaluation. FINDINGS: Number: 1 Heart Rate: 149 bpm H.B. /min Amniotic Fluid Volume: Subjectively normal Placental Location: ANTERIOR with lower margin 4.0 cm from os. Cervix Length: 4.01 cm ; closed. ANATOMY: Normal Structures -cerebellum, choroid plexus, cisterna magna, lateral cerebral ventricles, orbits, midline falx, hard palate, four-chamber heart, RVOT, LVOT, stomach, kidneys, bladder, right upper extremity, left upper extremity, right lower extremity, left lower extremity. SUBOPTIMALLY SEEN: Umbilical arteries, three-vessel cord, spine ABNORMALITIES: None BIOMETRY: BPD: 4.42 cm; 136 Day; 15.30 % HC: 17.23 cm; 139 Day; 20.90 % AC: 15.42 cm; 144 Day; 54.90 % FL: 3.51 cm; 148 Day; 70 % EFW:326.21 g; 67.20 % FL/AC: 22.76 FL/BPD: 79.41 HC/AC: 1.12 GESTATIONAL AGE: Age by EDC: 20 weeks 2 days Age by current US: 20 weeks 2 days MARIELLA by current US: 2024-06-09 MARIELLA by EDC: 2024-06-09 US/US OB anatomy IMPRESSION: 1. Single live intrauterine with growth detailed above. 2. Suboptimal visualization of the umbilical arteries, three-vessel cord, and spine due to position. Electronically authenticated by: PETRONA GANDHI Date: 01/23/2024 11:30
--- NOTE | 2024-01-23 10:01 | US_ITS ---
[address] [address] Patient Name: DOREEN MARQUEZ MRN: [id number] date: 1995 Sex: F Assigned Patient Location: [facility] Current Patient Location: [facility] Accession/Order Number: [id number] Exam Date: 01/23/2024 10:03 Report Date: 01/23/2024 11:30 At the request of: GILLES DIEGO Procedure: US OB cervical length EXAMINATION: US OB anatomy, US OB cervical length HISTORY: ANATOMY COMPARISON: Ultrasound OB transvaginal 10/21/2023 TECHNIQUE: Transabdominal sonographic examination was performed for obstetrical and evaluation. FINDINGS: Number: 1 Heart Rate: 149 bpm H.B. /min Amniotic Fluid Volume: Subjectively normal Placental Location: ANTERIOR with lower margin 4.0 cm from os. Cervix Length: 4.01 cm ; closed. ANATOMY: Normal Structures -cerebellum, choroid plexus, cisterna magna, lateral cerebral ventricles, orbits, midline falx, hard palate, four-chamber heart, RVOT, LVOT, stomach, kidneys, bladder, right upper extremity, left upper extremity, right lower extremity, left lower extremity. SUBOPTIMALLY SEEN: Umbilical arteries, three-vessel cord, spine ABNORMALITIES: None BIOMETRY: BPD: 4.42 cm; 136 Day; 15.30 % HC: 17.23 cm; 139 Day; 20.90 % AC: 15.42 cm; 144 Day; 54.90 % FL: 3.51 cm; 148 Day; 70 % EFW:326.21 g; 67.20 % FL/AC: 22.76 FL/BPD: 79.41 HC/AC: 1.12 GESTATIONAL AGE: Age by EDC: 20 weeks 2 days Age by current US: 20 weeks 2 days MARIELLA by current US: 2024-06-09 MARIELLA by EDC: 2024-06-09 US/US OB cervical length IMPRESSION: 1. Single live intrauterine with growth detailed above. 2. Suboptimal visualization of the umbilical arteries, three-vessel cord, and spine due to position. Electronically authenticated by: PETRONA GANDHI Date: 01/23/2024 11:30
--- OUTSIDE RECORDS SUMMARY | 2024-01-23 10:05 | XMS_ITS | CCD ---
Author Organization [facility] CliniSyma Care Team Providers Care Assistant City Attorney Name Role Phone FIDENCIO ANDRES Primary Care Unavailable FIDENCIO ANDRES Attending Unavailable FIDENCIO ANDRES Admitting Unavailable JOHNATHON, DR CAMPOVERDE Admitting Unavailable JOHNATHON, DR CAMPOVERDE Consulting Unavailable DR GILLES STACY Attending Unavailable FIDENCIO ANDRES Primary Care Unavailable Stephania DEGROOT - Ny CHEN Primary Care Provid er [place] MICHAEL Referring Unavailable [place] MICHAEL Primary Care Unavailable Unavailable Primary Care Provider Unavailabl e Medications Current Medications Medication Drug Class(es) Dates Sig (Normalized) Sig (Original) MV-Min-Fe Fum-FA-DHA ( 1 PO) (1 source) MV-Min- Fe Fum-FA-DHA ( 1 PO) Take by mouth Active Problems Problem Classification Problem Date Documented Date Episodic/Chronic Immunizations and screening for infectious disease (1 source) Encounter for screening for human papillomavirus (HPV); Translations: [ENC SCREENING HUMAN PAPILLOMAVIRUS] Onset: 12-17-2021 Episodic Other screening for suspected conditions (not mental disorders or infectious disease) (10 sources) Encounter for screening for malignant neoplasm of cervix; Translations: [Patient encounter status] Onset: 12-14-2021 Episodic Unclassified (1 source) OB Reminders Onset: 12-26-2023 12-26-2023 Results Test Name Value Interpretation Reference Range Facility IGP,APTIMA HPV,AGE GDLNon AGE GDLN ACOG TESTING Note . [facility] Comment on above: TESTS RESULT FLAG UN ITS REF RANGE LAB Clinician Provided Cytology Information Source.............Cervix Other.............. No. of containers..01 ThinPrep Vial Age Raul RODARTE Micaela... FLAG LEGEND: L-Low Normal,H-High Normal,LL-Alert Low,HH-Alert High <-Panic Low,>-Panic High,A-Abnormal,AA-Critical Abnormal Performed at: 01 =G [address] [id number] Vania Cabezas MD, IGP, RFX APTIMA HPV ASCU Note . [facility] Comment on above: TESTS RESULT FLAG U NITS REF RANGE LAB DIAGNOSIS: 02 NEGATIVE FOR INTRAEPITHELIAL LESION OR MALIGNANCY. Specimen adequacy: 02 Satisfactory for evaluation. Endocervical and/or squamous metaplastic cells (endocervical component) are present. Performed by: 02 Marissa Franklin, Steel Sampler (ASCP) . 02 Note: Note 02 The Pap smear is a screening test designed to aid in the detection of premalignant and malignant conditions of the uterine cervix. It is not a diagnostic procedure and should not be used as the sole means of detecting cervical cancer. Both false-positive and false-negative reports do occur. Test Methodology: Note 02 This liquid based ThinPrep(R) pap test was screened with the use of an image guided system. . 02 The HPV DNA reflex criteria were not met with this specimen result therefore, no HPV testing was performed. FLAG LEGEND: L-Low Normal,H-High Normal,LL-Alert Low,HH-Alert High <-Panic Low,>-Panic High,A-Abnormal,AA-Critical Abnormal Performed at: [address] [id number] Vania Cabezas MD, Performed at: =G - [facility] [address] [id number] Home Health Manager: Vania Cabezas MD, Phone: [phone] Performed at: - [facility] [address] [id number] Home Health Manager: Vania Cabezas MD, Phone: [phone] [facility] Lipid Profileon 10-04-2022 Cholesterol [Mass/Vol] 172 mg/dL Normal <200 [facility] Comment on above: Result Comment: Cholesterol Guidelines: <200 Desirable 200-240 Borderline >240 Undesirable Performed By: #### L IPR #### [facility] [address] [place] [id number] Home Health Manager: Erik Redding MD Cholesterol in HDL [Mass/Vol] 36 mg/dL Low >40 [facility] Comment on above: Result Comment: HDL Guidelines: <40 Undesirable 40-59 Borderline >59 Desirable Performed By: #### L IPR #### [facility] [address] [place] [address] Home Health Manager: Erik Redding MD Cholesterol in LDL [Mass/Vol] 79 mg/dL Normal 0-130 [facility] Comment on above: Result Comment: LDL Guidelines: <100 Desirable 100-129 Near to/above Desirable 130-159 Borderline >159 Undesirable Direct (measured) LDL and calculated LDL are not interchangeable tests. Performed By: #### L IPR #### [address] [place] [address] Home Health Manager: Erik Redding MD Cholesterol.total/Ch olesterol in HDL [Mass ratio] 4.8 {ratio} Normal <5 [facility] Comment on above: Performed By: #### L IPR #### [address] [address] Home Health Manager: Erik Redidng MD Triglyceride [Mass/Vol] 285 mg/dL High <150 [facility] Comment on above: Result Comment: Triglyceride Guidelines: <150 Desirable 150-199 Borderline 200-499 High >499 Very high Based on AHA Guidelines for fasting triglyceride, December 2011. Performed By: #### L IPR #### [address] [address] Home Health Manager: Erik Redding MD T3, Freeon 10-04-2022 Free T3 [Mass/Vol] 3.76 pg/mL Normal 2.02-4.43 [facility] Comment on above: Performed By: #### F T3 #### [address] [address] Home Health Manager: Erik Redding MD #### CMPF #### [facility] [address] [place] [address] Home Health Manager: Hemant Murphy MD Comp Metabol,Fastingon 10-03 Albumin [Mass/Vol] 4.6 g/dL Normal 3.5-5.2 [facility] Comment on above: Performed By: #### F T3 #### [address] [address] Home Health Manager: Erik Redding MD #### CMPF #### [facility] [address] [place] [address] Home Health Manager: Hemant Murphy MD Albumin/Glob Ratio 1.3 Normal 1.0-2.5 [facility] Comment on above: Performed By: #### F T3 #### [address] [place] [address] Home Health Manager: Erik Redding MD #### CMPF #### [facility] [address] [place] [address] [place] [address] Home Health Manager: Hemant Murphy MD Alkaline Phos 91 U/L Normal 35-104 [facility] Comment on above: Performed By: #### F T3 #### [address] [address] Home Health Manager: Erik Redding MD #### CMPF #### [facility] [address] [place] [address] [place] [address] Home Health Manager: Hemant Murphy MD ALT [Catalytic activity/Vol] 39 U/L High 5-33 [facility] Comment on above: Performed By: #### F T3 #### [facility] [address] [place] [address] Home Health Manager: Erik Redding MD #### CMPF #### [facility] [address] [place] [address] [place], [place] [phone] Home Health Manager: Hemant Murphy MD Anion gap [Moles/Vol] 13 mmol/L Normal 9-17 [facility] Comment on above: Performed By: #### F T3 #### [address] [address] Home Health Manager: Erik Redding MD #### CMPF #### [facility] [address] [place] [address] [place], [place] [phone] Home Health Manager: Hemant Murphy MD AST [Catalytic activity/Vol] 34 U/L High <32 [facility] Comment on above: Performed By: #### F T3 #### [address] [place] [address] Home Health Manager: Erik Redding MD #### CMPF #### [facility] [address] [place], [place] [id number] Home Health Manager: Hemant Murphy MD Bilirubin [Mass/Vol] 0.8 mg/dL Normal 0.3-1.2 [facility] Comment on above: Performed By: #### F T3 #### [address] [address] Home Health Manager: Erik Redding MD #### CMPF #### [facility] [address] [place], [place] [address] Home Health Manager: Hemant Murphy MD BUN/CRE Ratio 20 Normal 9-20 [facility] Comment on above: Performed By: #### F T3 #### [address] [address] Home Health Manager: Erik Redding MD #### CMPF #### [facility] [address] [place] [address] [address], [place] [phone] Home Health Manager: Hemant Murphy MD Calcium [Mass/Vol] 9.2 mg/dL Normal 8.6-10.4 [facility] Comment on above: Performed By: #### F T3 #### [address] [address] Home Health Manager: Erik Redding MD #### CMPF #### [facility] [address] [place], [place] [id number] Home Health Manager: Hemant Murphy MD Chloride [Moles/Vol] 101 mmol/L Normal 98-107 [facility] Comment on above: Performed By: #### F T3 #### [address] [address] Home Health Manager: Erik Redding MD #### CMPF #### [facility] [address] [place] [address] Home Health Manager: Hemant Murphy MD CO2 [Moles/Vol] 22 mmol/L Normal 20-31 [facility] Comment on above: Performed By: #### F T3 #### [address] [place] [address] Home Health Manager: Erik Redding MD #### CMPF #### [address] [place] [address] Home Health Manager: Hemant Murphy MD Creatinine [Mass/Vol] 0.54 mg/dL Normal 0.50-0.90 [facility] Comment on above: Performed By: #### F T3 #### [address] [address] Home Health Manager: Erik Redding MD #### CMPF #### [address] [place] [address] Home Health Manager: Hemant Murphy MD GFR/1.73 sq M.predicted among non-blacks MDRD (S/P/Bld) [Vol rate/Area] mL/min/{1.73_m2} Normal >60 [facility] Comment on above: Result Comment: These [...] secretion. Performed By: #### F T3 #### [address] [place] [address] Home Health Manager: Erik Redding MD #### CMPF #### [facility] [address] [place] [address] Home Health Manager: Hemant Murphy MD Glucose [Mass/Vol] 88 mg/dL Normal 70-99 [facility] Comment on above: Performed By: #### F T3 #### [address] [address] Home Health Manager: Erik Redding MD #### CMPF #### [address] [place], [place] [address]83 Home Health Manager: Hemant Murphy MD Potassium [Moles/Vol] 4.3 mmol/L Normal 3.7-5.3 [facility] Comment on above: Performed By: #### F T3 #### [address] [address] Home Health Manager: Erik Redding MD #### CMPF #### [address] [place], [place] [address] Home Health Manager: Hemant Murphy MD Protein [Mass/Vol] 8.1 g/dL Normal 6.4-8.3 [facility] Comment on above: Performed By: #### F T3 #### [address] [address] Home Health Manager: Erik Redding MD #### CMPF #### [address] [place], [place] [address] Home Health Manager: Hemant Murphy MD Sodium [Moles/Vol] 136 mmol/L Normal 135-144 [facility] Comment on above: Performed By: #### F T3 #### [address] [address] Home Health Manager: Erik Redding MD #### CMPF #### [address] [place], [place] [phone] Home Health Manager: Hemant Murphy MD Urea nitrogen [Mass/Vol] 11 mg/dL Normal 6-20 [facility] Comment on above: Performed By: #### F T3 #### [facility] [address] [place] [address] Home Health Manager: Erik Redding MD #### CMPF #### [facility] [address] [place], [place] [phone] Home Health Manager: Hemant Murphy MD Comprehensive Metabolic Pane l, Fastingon 10-03-2022 Albumin [Mass/Vol] 4.6 g/dL 3.5 - 5.2 g/dL [facility] Albumin/Globulin [Mass ratio] 1.3 {ratio} 1.0 - 2.5 [facility] ALP [Catalytic activity/Vol] 91 U/L 35 - 104 U/L [facility] ALT [Catalytic activity/Vol] 39 U/L High 5 - 33 U/L [facility] Anion gap [Moles/Vol] 13 mmol/L 9 - 17 mmol/L [facility] AST [Catalytic activity/Vol] 34 U/L High NINF - 32 U/L [facility] Bilirubin [Mass/Vol] 0.8 mg/dL 0.3 - 1 .2 mg/dL [facility] Calcium [Mass/Vol] 9.2 mg/dL 8.6 - 10. 4 mg/dL [facility] Chloride [Moles/Vol] 101 mmol/L 98 - 10 7 mmol/L [facility] CO2 [Moles/Vol] 22 mmol/L 20 - 31 mmol/L [facility] Creatinine [Mass/Vol] 0.54 mg/dL 0.50 - 0.90 mg/dL [facility] GFR/1.73 sq M.predicted MDRD (S/P/Bld) [Vol rate/Area] - PINF [facility] Comment on above: These results are not [...] [Mass/Vol] 88 mg/dL 70 - 99 mg/dL [facility] Interpretation and review of laboratory results Abnormal [facility] Potassium [Moles/Vol] 4.3 mmol/L 3.7 - 5.3 mmol/L [facility] Protein [Mass/Vol] 8.1 g/dL 6.4 - 8.3 g/dL [facility] Sodium [Moles/Vol] 136 mmol/L 135 - 144 mmol/L [facility] Urea nitrogen [Mass/Vol] 11 mg/dL 6 - 20 mg/dL [facility] Urea nitrogen/Creatinine [Mass ratio] 20 mg/mg 9 - 20 [facility] Lipid Panelon 10-03-2022 Cholesterol [Mass/Vol] 172 mg/dL NINF - 200 mg/dL [facility] Comment on above: Cholesterol Guidelines: <200 Desirable 200-240 Borderline >240 Undesirable Cholesterol in HDL [Mass/Vol] 36 mg/dL Low 40 - PINF mg/dL [facility] Comment on above: HDL Guidelines: <40 Undesirable 40-59 Borderline >59 Desirable Cholesterol in LDL [Mass/Vol] 79 mg/dL 0 - 130 mg/dL [facility] Comment on above: LDL Guidelines: <100 Desirable 100-129 Near to/above Desirable 130-159 Borderline >159 Undesirable Direct (measured) LDL and calculated LDL are not interchangeable tests. Cholesterol.total/Ch olesterol in HDL [Mass ratio] 4.8 {ratio} NINF - 5 [facility] Interpretation and review of laboratory results Abnormal [facility] Triglyceride [Mass/Vol] 285 mg/dL High NINF - 150 mg/dL [facility] Comment on above: Triglyceride Guidelines: <150 Desirable 150-199 Borderline 200-499 High >499 Very high Based on AHA Guidelines for fasting triglyceride, December 2011. [facility] T3, Freeon 10-03-2022 Free T3 [Mass/Vol] 3.76 pg/mL 2.02 - 4. 43 pg/mL [facility] TSH With Reflex Ft4on 2022 TSH Qn 1.66 m[IU]/L [facility] TSH w/reflex to FT4on 2022 Thyroid Stim. Horm. 1.66 uIU/mL Normal 0.30-5.00 [facility] Comment on above: Performed By: #### T SHX #### [facility] [address] [place], [facility] Home Health Manager: Hemant Murphy MD PAP ACOG PANEL 2: 21 to 29on 12-20-2021 . . Normal [facility] Comment on above: Performed By: #### 4 [id number] #### [facility] [address] [place] [address] Dr. Sachin Pereira Age Gdln ACOG Testing [facility] Comment on above: Performed By: #### 4 [id number] #### [facility] [address] [place] [address] Dr. Sachin Pereira DIAGNOSIS: Comment [facility] Comment on above: Result Comment: NEGA TIVE FOR INTRAEPITHELIAL LESION OR MALIGNANCY. Performed By: #### 4 [id number] #### [facility] [address] [place] [address] Dr. Sachin Pereira Methodology: Comment [facility] Comment on above: Result Comment: This liquid based ThinPrep(R) pap test was screened with the use of an image guided system. Performed By: #### 4 [id number] #### [facility] [address] [place] [address] Dr. Sachin Pereira Note: Comment [facility] Comment on above: Result Comment: The Pap smear is a screening test designed to aid in the detection of premalignant and malignant conditions of the uterine cervix. It is not a diagnostic procedure and should not be used as the sole means of detecting cervical cancer. Both false-positive and false-negative reports do occur. . Performed By: #### 4 [id number] #### [facility] [address] [place] [address] Dr. Sachin Pereira Performed by: Comment Normal [facility] Comment on above: Result Comment: Collette Holliday, Steel Sampler (ASCP) Performed By: #### 4 [id number] #### [facility] [address] [place] [address] Dr. Sachin Pereira Reflex Criteria: Comment [facility] Comment on above: Result Comment: The HPV DNA reflex criteria were not met with this specimen result therefore, no HPV testing was performed. . Performed By: #### 4 [id number] #### [facility] [address] [address] [address] Sachin Pereira Specimen adequacy: Comment Normal [facility] Comment on above: Result Comment: Sati sfactory for evaluation. Endocervical and/or squamous metaplastic cells (endocervical component) are present. Performed By: #### 4 [id number] #### [facility] [address] [place] [address] Dr. Sachin Pereira Encounters Encounter Date Encounter Type Care Provider Facility Start: 12-26-2023 End: 01-02-2024 Clinisync Result Encounter Gilles Stacy DO Work Phone: [facility] Unsolicited Start: 12-26-2023 End: 01-02-2024 [facility] Result Encounter Gilles Stacy DO Work Phone: [facility] Unsolicited Start: 11-08-2023 End: 11-08-2023 ambulatory Not Available Start: 10-03-2022 End: 10-04-2022 ambulatory [place] [facility] Start: 10-03-2022 End: 10-03-2022 Subsequent hospital visit by physician Ny Michael CONSTRUCTION ENGINEER - LAST REPAIRER Work Phone: [facility] Comment on above: Screening for hypoth yroidism; Diabetes mellitus screening; Lipid screening Start: 12-14-2021 End: 12-14-[address] GILLES STACY Facility:H1 Start: 02-10-2021 ambulatory FIDENCIO [place] y:H1 Procedures Date Procedure Procedure Detail Performing Clinician Start: 12-26-2023 IGP,APTIMA HPV,AGE GDLN Gilles Stacy DO Work Phone: Start: 10-03-2022 End: 10-03-2022 Assay of triiodothyronine t3 free Ny Michael CONSTRUCTION ENGINEER - LAST REPAIRER Work Phone: Start: 10-03-2022 Lipid panel Ny Michael CONSTRUCTION ENGINEER [facility] Work Phone: Plan of Treatment Date Care Activity Detail Author Start: 01-23-2024 End: 01-23-2024 Patient encounter procedure 01/23/2024 11:10 AM EDT Routine [facility] [address] [place] [address] Gilles Stacy, DO [address] [place], [place] [id number] [facility] Start: 01-23-2024 End: 01-23-2024 Professional / ancillary services management 01/23/2024 10:00 AM EDT Ancillary Procedure [facility] [address] [place] [address] [facility] Start: 12-01-2023 Influenza vaccination Influenza Vacc ine (#1) [facility] Start: 10-09-2023 End: 10-09-2023 Patient encounter procedure 10/09/2023 Office Visit Primary Care Ny Michael, CONSTRUCTION ENGINEER - LAST REPAIRER [address] [place] [address] [facility] Start: 10-02-2023 Depression Screen Depression Screen [facility] [employer] [facility] Start: 10-02-2023 DTaP/Tdap/Td vaccine (1 - Tdap) DTaP/Tdap/Td vaccine (1 - Tdap) [facility] Comment on above: Postponed from 07/16 (Patient Refused) Start: 10-02-2023 Hepatitis C screening Hepatitis C sc reen [facility] [employer] [facility] Comment on above: Postponed from 07/16 (Patient Refused) Start: 10-02-2023 HIV screening HIV screen [facility] [employer] Comment on above: Postponed from 07/16 (Patient Refused) Start: 10-02-2023 HPV vaccine (1 - 2-d ose series) HPV vaccine (1 - 2-dose series) [facility] Comment on above: Postponed from 07/16 (Patient Refused) Start: 10-30-2022 Influenza vaccination Flu vaccine (# 1) [facility] Start: 05-01-2021 COVID-19 Vaccine (2 - Booster for Kinga series) COVID-19 Vaccine (2 - Booster for Kinga series) [facility] Start: 2017 Screening for malign ant neoplasm of cervix Pap smear [facility] Immunizations Immunization Date Immunization Notes Care Provider Fa cheyty 03-06-2021 COVID-19, J&J, (age 18y+), IM, 0.5 mL Ny Michael APRN - LAST REPAIRER Work Phone: [facility] Payers Date Payer Category Payer Private Health Insurance AUSTYN Moreno [facility] [id number] 2022-Present [address] [place] [address] [id number] 2022 Private Health Insurance 100 [id number] 1996 Unknown [id number] 1996 Unknown [id number] 1996 Unknown [id number] 1996 Unknown [id number] 1959 Self-pay [id number] 1959 Unknown [id number] Social History Date Type Detail Facility Start: 10-01-2022 Tobacco smoking status NHIS Ex-smoker [facility] End: 05-30-2021 History of tobacco use Current smoker [facility] End: 05-30-2021 History of tobacco use Cigarette Smoker [employer] History of tobacco use Tobacco U se Types Packs/Day Years Used Date Smoking Tobacco: Former Cigarettes 0.5 5 Quit: 05/2021 E-Cigarettes Smokeless Tobacco: Never [employer] Start: 10-01-2022 Cigarettes smoked current (pack per day) - Reported 0.5 [employer] Start: 10-01-2022 Tobacco use and exposure Smokeless tobacco non-user [employer] Start: 10-01-2022 Alcohol intake Ex-drinker (finding) [employer] Start: 10-01-2022 History SDOH Physical Activity DPW 3 [employer] Start: 10-01-2022 History SDOH Physical Activity MPS 6 [employer] Start: 10-01-2022 History SDOH Financial 5 [employer] Start: 10-01-2022 History SDOH Food Worry 1 [employer] Start: 10-01-2022 History SDOH Transport Non-Med 2 [employer] Start: 10-01-2022 Alcohol Comment Socially [employer] Start: 1995 Sex Assigned At Female [employer] [facility] Start: 09-17-2023 [facility] Start: 12-11-2022 Gender identity Identifies as female gender (finding) [facility] Start: 12-11-2022 Sexual orientation Heterosexual (finding) [facility] Goals Date Patient Goal Desired Activity /State Personal health goal Evaluation note Note Date & Type Note Facility Evaluation note Diagnosis Screening for hypothyroidism Screening for thyroid disorder Diabetes mellitus screening Screening for diabetes mellitus Lipid screening Screening for lipoid disorders documented in this encounter [employer] Summary Purpose Family History No Family History Records FoundNo Family History Records FoundNo Family History Records Found Advance Directives No Advanced Directives Records FoundNo Advanced Directives Records FoundNo Advanced Directives Records Found Additional Source Comments INFORMATION SOURCE (unrecogn ized section and content) DATE CREATED AUTHOR 12/29/2021 [facility] DATE CREATED AUTHOR AUTHOR'S ORGANIZ ATION 10/04/2022 [facility] DATE CREATED AUTHOR AUTHOR'S ORGANIZ ATION 11/10/2023 [facility] [employer] Care Teams (unrecognized sec tion and content) Assistant City Attorney Relationship Specialty Start Date End Date Ny Michael Padilla, CONSTRUCTION ENGINEER - LAST REPAIRER [phone] PCP - General Certified Nurse Practitioner 10/01/22 [...] BE BASED ON THE PRIMARY CLINICAL RECORDS. [facility] [employer] provides no warranty or guarantee of the accuracy or completeness of information in this document.
== END 2024-01-23 09:59 | disposition home or self-care (01) ==
LOC: NOMS 09:58
PROVIDERS: Visit Provider Obstetrics & Gynecology
DX: Z36.89 Encounter for other specified antenatal screening (principal); Z3A.20 20 weeks gestation of pregnancy
CPT/HCPCS: 76805; 76817

== ENCOUNTER 2024-02-20 08:54 | Outpatient (OUT) | payer OTHER, SELFPAY ==
--- NOTE | 2024-02-20 08:55 | US_ITS ---
[address] [address] Patient Name: DOREEN MARQUEZ MRN: [id number] date: 1995 Sex: F Assigned Patient Location: [facility] Current Patient Location: Accession/Order Number: [id number] Exam Date: 02/20/2024 08:56 Report Date: 02/21/2024 04:50 At the request of: GILLES DIEGO Procedure: US OB follow up EXAMINATION: US OB follow up HISTORY: INCOMPLETE ANATOMY COMPARISON: Ultrasound OB anatomy 01/23/2024 FINDINGS: Presentation: Cephalic Heart rate: 167 bpm Observed Anatomy: Three-vessel cord, umbilical arteries, spine. GA: 24 weeks 2 days MARIELLA: 06/09/2024 US/US OB follow up IMPRESSION: 1. Single live intrauterine . 2. Adequate visualization of the three-vessel cord, umbilical arteries, and spine. No appreciable abnormality. Electronically authenticated by: PETRONA GANDHI Date: 02/21/2024 04:50
--- OUTSIDE RECORDS SUMMARY | 2024-02-20 09:15 | XMS_ITS | CCD ---
Author Organization [facility] Care Team Providers Care Service Plumber Name Role Phone FIDENCIO ANDRES Primary Care Unavailable FIDENCIO ANDRES Attending Unavailable FIDENCIO ANDRES Admitting Unavailable REGIS, DR CAMPOVERDE Admitting Unavailable REGIS, DR CAMPOVERDE Consulting Unavailable DR GILLES STACY Attending Unavailable FIDENCIO ANDRES Primary Care Unavailable Stephania Ny FELICIANO CNP Primary Care Provid er [place] MICHAEL Referring Unavailable [place] MICHAEL Primary Care Unavailable Unavailable Primary Care Provider UnavailGILLES Jenkins Attending Unavailable GILLES STACY Attending Unavailable GILLES STACY Attending Unavailable Medications Current Medications Medication Drug Class(es) Dates Sig (Normalized) Sig (Original) MV-Min-Fe Fum-FA-DHA ( 1 PO) (4 sources) MV-Min- Fe Fum-FA-DHA ( 1 PO) Take by mouth Active Problems Problem Classification Problem Date Documented Date Episodic/Chronic Immunizations and screening for infectious disease (1 source) Encounter for screening for human papillomavirus (HPV); Translations: [ENC SCREENING HUMAN PAPILLOMAVIRUS] Onset: 12-17-2021 Episodic Other and delivery including normal (2 sources) Second trimester ; Translations: [Encounter for supervision of normal , unspecified, second trimester] 01-23-2024 Episodic Other screening for suspected conditions (not mental disorders or infectious disease) (10 sources) Encounter for screening for malignant neoplasm of cervix; Translations: [Patient encounter status] Onset: 12-14-2021 Episodic Residual codes; unclassified (2 sources) Gestation period, 20 weeks; Translations: [20 weeks gestation of ] 01-23-2024 Episodic Unclassified (4 sources) OB Reminders Onset: 12-26-2023 12-26-2023 Results Test Name Value Interpretation Reference Range Facility Urinalysis macro (dipstick) panel (U)on 01-23-2024 Bilirubin, UA Negative Negative - 4(70) +++ mg/dL [facility] Blood, UA Negative Negative - 50 Horacio/mcL [facility] Clarity, UA Clear [facility] re Color, UA Yellow [facility] Glucose, UA Negative Negative - 1999(110) ++++ mg/dL [facility] Interpretation and review of laboratory results Abnormal [facility] Ketones, UA Negative Negative - 160(16) ++++ mg/dL [facility] Leukocytes, UA Trace Negative - 500+++ Nica/mcL [facility] Nitrite, UA Negative Negative - Positive [facility] pH, UA 6.5 5 - 9 [facility] e Protein, UA Negative Negative - 1999(20) ++++ mg/dL [facility] Spec Grav, UA 1.015 1 - 1.03 [facility] Urobilinogen, UA 0.2 0.2 - 12 mg/dL [facility] IGP,APTIMA HPV,AGE GDLNon AGE GDLN ACOG TESTING Note . [facility] Comment on above: TESTS RESULT FLAG UN ITS REF RANGE LAB Clinician Provided Cytology Information Source.............Cervix Other.............. No. of containers..01 ThinPrep Vial Age Algo ACOG Micaela... FLAG LEGEND: L-Low Normal,H-High Normal,LL-Alert Low,HH-Alert High <-Panic Low,>-Panic High,A-Abnormal,AA-Critical Abnormal Performed at: 01 =G [facility] [address] [place] [address] Vania Cabezas MD, IGP, RFX APTIMA HPV ASCU Note . [facility] Comment on above: TESTS RESULT FLAG UN ITS REF RANGE LAB DIAGNOSIS: 02 NEGATIVE FOR INTRAEPITHELIAL LESION OR MALIGNANCY. Specimen adequacy: 02 Satisfactory for evaluation. Endocervical and/or squamous metaplastic cells (endocervical component) are present. Performed by: 02 Marissa Franklin, Tafe Teacher ([facility]) . 02 Note: Note 02 The Pap [...] <-Panic Low,>-Panic High,A-Abnormal,AA-Critical Abnormal Performed at: 02 WB [facility] [address] [address] Vania Cabezas MD, Performed at: =G - [facility] [address] [id number] Facility Maintenance Helper: Vania Cabezas MD, Phone: [phone] Performed at: WB - [facility] [address] [id number] Facility Maintenance Helper: Vania Cabezas MD, Phone: [phone] [facility] Lipid Profileon 10-04-2022 Cholesterol [Mass/Vol] 172 mg/dL Normal <200 [facility] Comment on above: Result Comment: Cholesterol Guidelines: <200 Desirable 200-240 Borderline >240 Undesirable Performed By: #### L IPR #### [facility] [address] [place] [address] [id number] Facility Maintenance Helper: Erik Redding MD Cholesterol in HDL [Mass/Vol] 36 mg/dL Low >40 [facility] Comment on above: Result Comment: HDL Guidelines: <40 Undesirable 40-59 Borderline >59 Desirable Performed By: #### L IPR #### [facility] [address] [place] [address] Facility Maintenance Helper: Erik Redding MD Cholesterol in LDL [Mass/Vol] 79 mg/dL Normal 0-130 [facility] Comment on above: Result Comment: LDL Guidelines: <100 Desirable 100-129 Near to/above Desirable 130-159 Borderline >159 Undesirable Direct (measured) LDL and calculated LDL are not interchangeable tests. Performed By: #### L IPR #### [facility] [place] [address] Facility Maintenance Helper: Erik Redding MD Cholesterol.total/Ch olesterol in HDL [Mass ratio] 4.8 {ratio} Normal <5 [facility] Comment on above: Performed By: #### L IPR #### [facility] [place] [address] Facility Maintenance Helper: Erik Redding MD Triglyceride [Mass/Vol] 285 mg/dL High <150 [facility] Comment on above: Result Comment: Triglyceride Guidelines: <150 Desirable 150-199 Borderline 200-499 High >499 Very high Based on AHA Guidelines for fasting triglyceride, December 2011. Performed By: #### L IPR #### [address] [place] [address] Facility Maintenance Helper: Erik Redding MD T3, Freeon 10-04-2022 Free T3 [Mass/Vol] 3.76 pg/mL Normal 2.02-4.43 [facility] Comment on above: Performed By: #### F T3 #### [address] [address] Facility Maintenance Helper: Erik Redding MD #### CMPF #### [facility] [address] [place], [place] [id number] Facility Maintenance Helper: Hemant Murphy MD Comp Metabol,Fasting 10-03 Albumin [Mass/Vol] 4.6 g/dL Normal 3.5-5.2 [facility] Comment on above: Performed By: #### F T3 #### [address] [address] Facility Maintenance Helper: Erik Redding MD #### CMPF #### [facility] [address] [place], [place] [id number] Facility Maintenance Helper: Hemant Murphy MD Albumin/Glob Ratio 1.3 Normal 1.0-2.5 [facility] Comment on above: Performed By: #### F T3 #### [address] [address] Facility Maintenance Helper: Erik Redding MD #### CMPF #### [facility] [address] [place], [place] [id number] Facility Maintenance Helper: Hemant Murphy MD Alkaline Phos 91 U/L Normal 35-104 [facility] Comment on above: Performed By: #### F T3 #### [address] [address] Facility Maintenance Helper: Erik Redding MD #### CMPF #### [facility] [address] [place] [address] Dr[place], [place] [id number] Facility Maintenance Helper: Hemant Murphy MD ALT [Catalytic activity/Vol] 39 U/L High 5-33 [facility] Comment on above: Performed By: #### F T3 #### [address] [address] Facility Maintenance Helper: Erik Redding MD #### CMPF #### [facility] [address] [place] [address] [place] [address] Facility Maintenance Helper: Hemant Murphy MD Anion gap [Moles/Vol] 13 mmol/L Normal 9-17 [facility] Comment on above: Performed By: #### F T3 #### [address] [address] Facility Maintenance Helper: Erik Redding MD #### CMPF #### [facility] [address] [place] [address] [place] [address] Facility Maintenance Helper: Hemant Murphy MD AST [Catalytic activity/Vol] 34 U/L High <32 [facility] Comment on above: Performed By: #### F T3 #### [address] [address] Facility Maintenance Helper: Erik Redding MD #### CMPF #### [facility] [address] [place] [address] Dr[place], [place] [id number] Facility Maintenance Helper: Hemant Murphy MD Bilirubin [Mass/Vol] 0.8 mg/dL Normal 0.3-1.2 [facility] Comment on above: Performed By: #### F T3 #### [address] [address] Facility Maintenance Helper: Erik Redding MD #### CMPF #### [facility] [address] [place] [address] Facility Maintenance Helper: Hemant Murphy MD BUN/CRE Ratio 20 Normal 9-20 [facility] Comment on above: Performed By: #### F T3 #### [address] [place] [address] Facility Maintenance Helper: Erik Redding MD #### CMPF #### [facility] [address] [place] [address] Dr. [place], [place] [phone] Facility Maintenance Helper: Hemant Murphy MD Calcium [Mass/Vol] 9.2 mg/dL Normal 8.6-10.4 [facility] Comment on above: Performed By: #### F T3 #### [address] [address] Facility Maintenance Helper: Erik Redding MD #### CMPF #### [address] [place] [address] Facility Maintenance Helper: Hemant Murphy MD Chloride [Moles/Vol] 101 mmol/L Normal 98-107 [facility] Comment on above: Performed By: #### F T3 #### [address] [address] Facility Maintenance Helper: Erik Redding MD #### CMPF #### [address] [place], [place] [id number] Facility Maintenance Helper: Hemant Murphy MD CO2 [Moles/Vol] 22 mmol/L Normal 20-31 [facility] Comment on above: Performed By: #### F T3 #### [address] [address] Facility Maintenance Helper: Erik Redding MD #### CMPF #### [address] [place], [place] 0811183 Facility Maintenance Helper: Hemant Murphy MD Creatinine [Mass/Vol] 0.54 mg/dL Normal 0.50-0.90 [facility] Comment on above: Performed By: #### F T3 #### [address] [address] Facility Maintenance Helper: Erik Redding MD #### CMPF #### [facility] [address] [place] [address] [place] [address] Facility Maintenance Helper: Hemant Murphy MD GFR/1.73 sq M.predicted among non-blacks MDRD (S/P/Bld) [Vol rate/Area] mL/min/{1.73_m2} Normal >60 [facility] Comment on above: Result Comment: These results [...] secretion. Performed By: #### F T3 #### [address] [address] Facility Maintenance Helper: Erik Redding MD #### CMPF #### [address] [place] [address] Facility Maintenance Helper: Hemant Murphy MD Glucose [Mass/Vol] 88 mg/dL Normal 70-99 [facility] Comment on above: Performed By: #### F T3 #### [address] [address] Facility Maintenance Helper: Erik Redding MD #### CMPF #### [address] [place] [address] Facility Maintenance Helper: Hemant Murphy MD Potassium [Moles/Vol] 4.3 mmol/L Normal 3.7-5.3 [facility] Comment on above: Performed By: #### F T3 #### [address] [address] Facility Maintenance Helper: Erik Redding MD #### CMPF #### [facility] [address] [place] [address] [place] [address] Facility Maintenance Helper: Hemant Murphy MD Protein [Mass/Vol] 8.1 g/dL Normal 6.4-8.3 [facility] Comment on above: Performed By: #### F T3 #### [address] [address] Facility Maintenance Helper: Erik Redding MD #### CMPF #### [facility] [address] [place] [address] [place] [address] Facility Maintenance Helper: Hemant Murphy MD Sodium [Moles/Vol] 136 mmol/L Normal 135-144 [facility] Comment on above: Performed By: #### F T3 #### [address] [address] Facility Maintenance Helper: Erik Redding MD #### CMPF #### [facility] [address] [place] [address] [place] [address] Facility Maintenance Helper: Hemant Murphy MD Urea nitrogen [Mass/Vol] 11 mg/dL Normal 6-20 [facility] Comment on above: Performed By: #### F T3 #### [address] [address] Facility Maintenance Helper: Erik Redding MD #### CMPF #### [facility] [address] [place] [address] Facility Maintenance Helper: Hemant Murphy MD Comprehensive Metabolic Pane l, Fastingon 10-03-2022 Albumin [Mass/Vol] 4.6 g/dL 3.5 - 5.2 g/dL [facility] Albumin/Globulin [Mass ratio] 1.3 {ratio} 1.0 - 2.5 [facility] ALP [Catalytic activity/Vol] 91 U/L 35 - 104 U/L [facility] ALT [Catalytic activity/Vol] 39 U/L High 5 - 33 U/L [facility] Anion gap [Moles/Vol] 13 mmol/L 9 - 17 mmol/L [facility] AST [Catalytic activity/Vol] 34 U/L High NINF - 32 U/L [facility] Bilirubin [Mass/Vol] 0.8 mg/dL 0.3 - 1 .2 mg/dL [facility] Calcium [Mass/Vol] 9.2 mg/dL 8.6 - 10. 4 mg/dL [facility] Chloride [Moles/Vol] 101 mmol/L 98 - 10 7 mmol/L [facility] CO2 [Moles/Vol] 22 mmol/L 20 - 31 mmol/L [facility] Creatinine [Mass/Vol] 0.54 mg/dL 0.50 - 0.90 mg/dL [facility] GFR/1.73 sq M.predicted MDRD (S/P/Bld) [Vol rate/Area] - PINF [facility] Comment on above: These results are not [...] [Mass/Vol] 88 mg/dL 70 - 99 mg/dL [facility] Interpretation and review of laboratory results Abnormal [facility] Potassium [Moles/Vol] 4.3 mmol/L 3.7 - 5.3 mmol/L [facility] Protein [Mass/Vol] 8.1 g/dL 6.4 - 8.3 g/dL [facility] Sodium [Moles/Vol] 136 mmol/L 135 - 144 mmol/L [facility] Urea nitrogen [Mass/Vol] 11 mg/dL 6 - 20 mg/dL [facility] Urea nitrogen/Creatinine [Mass ratio] 20 mg/mg 9 - 20 [facility] Lipid Panelon 10-03-2022 Cholesterol [Mass/Vol] 172 mg/dL NINF - 200 mg/dL [facility] Comment on above: Cholesterol Guidelines: <200 Desirable 200-240 Borderline >240 Undesirable Cholesterol in HDL [Mass/Vol] 36 mg/dL Low 40 - PINF mg/dL [facility] Comment on above: HDL Guidelines: <40 Undesirable 40-59 Borderline >59 Desirable Cholesterol in LDL [Mass/Vol] 79 mg/dL 0 - 130 mg/dL [facility] Comment on above: LDL Guidelines: <100 Desirable 100-129 Near to/above Desirable 130-159 Borderline >159 Undesirable Direct (measured) LDL and calculated LDL are not interchangeable tests. Cholesterol.total/Ch olesterol in HDL [Mass ratio] 4.8 {ratio} NINF - 5 [facility] Interpretation and review of laboratory results Abnormal [facility] Triglyceride [Mass/Vol] 285 mg/dL High NINF - 150 mg/dL [facility] Comment on above: Triglyceride Guidelines: <150 Desirable 150-199 Borderline 200-499 High >499 Very high Based on AHA Guidelines for fasting triglyceride, December 2011. [facility] T3, Freeon 10-03-2022 Free T3 [Mass/Vol] 3.76 pg/mL 2.02 - 4. 43 pg/mL [facility] TSH With Reflex Ft4on 2022 TSH Qn 1.66 m[IU]/L [facility] TSH w/reflex to FT4on 2022 Thyroid Stim. Horm. 1.66 uIU/mL Normal 0.30-5.00 [facility] Comment on above: Performed By: #### T SHX #### [facility] [address] [place] [address] Facility Maintenance Helper: Hemant Murphy MD PAP ACOG PANEL 2: 21 to 29on 12-20-2021 . . Normal [facility] Comment on above: Performed By: #### 4 [id number] #### [facility] [address] [place] [address] Dr. Sachin Pereira Age Gdln ACOG Testing 21-29 Normal [facility] Comment on above: Performed By: #### 4 [id number] #### [facility] [address] [place] [address] Dr. Sachin Pereira DIAGNOSIS: Comment [facility] Comment on above: Result Comment: NEGA TIVE FOR INTRAEPITHELIAL LESION OR MALIGNANCY. Performed By: #### 4 [id number] #### [facility] [address] [place] [address] Dr. Sachin Pereira Methodology: Comment Normal [facility] Comment on above: Result Comment: This liquid based ThinPrep(R) pap test was screened with the use of an image guided system. Performed By: #### 4 [id number] #### [facility] [address] [place] [address] Dr. Sachin Pereira Note: Comment Normal [facility] Comment on above: Result Comment: The Pap smear is a screening test designed to aid in the detection of premalignant and malignant conditions of the uterine cervix. It is not a diagnostic procedure and should not be used as the sole means of detecting cervical cancer. Both false-positive and false-negative reports do occur. . Performed By: #### 4 [id number] #### [facility] [address] [place] [address] Dr. Sachin Pereira Performed by: Comment Normal [facility] Comment on above: Result Comment: Collette Holliday, Tafe Teacher (ASCP) Performed By: #### 4 [id number] #### [facility] [address] [place] [address] Dr. Sachin Pereira Reflex Criteria: Comment Normal [facility] Comment on above: Result Comment: The HPV DNA reflex criteria were not met with this specimen result therefore, no HPV testing was performed. . Performed By: #### 4 [id number] #### [facility] [address] [place] [address] Dr. Sachin Pereira Specimen adequacy: Comment Normal [facility] Comment on above: Result Comment: Sati sfactory for evaluation. Endocervical and/or squamous metaplastic cells (endocervical component) are present. Performed By: #### 4 [id number] #### [facility] [address] [address] [address] Sachin Pereira Vital Signs Date Time Vital Sign Value Performing Clinician Carmelo douglas 01-23-2024 11:02-0400 Body mass index (BMI) [Ratio] 44.3 kg/m2 Gilles Regis DO Work Phone: [facility] 01-23-2024 11:02-0400 Body weight 136.08 kg Gilles Regis DO Work Phone: [facility] 01-23-2024 11:02-0400 Diastolic blood pressure 82 mm[Hg] Gilles Regis DO Work Phone: [facility] 01-23-2024 11:02-0400 Systolic blood pressure 120 mm[Hg] Gilles Regis DO Work Phone: [facility] Encounters Encounter Date Encounter Type Care Provider Facility Start: 01-23-2024 End: 01-23-2024 Bamboo flowsheet Gilles Regis DO Work Phone: [facility] Start: 01-23-2024 End: 01-23-2024 Bamboo flowsheet Gilles Regis DO Work Phone: [facility] Start: 01-23-2024 End: 01-23-2024 flow sheet Gilles Regis DO Work Phone: [facility] Comment on above: 20 weeks gestation o f ; Second trimester Start: 01-23-2024 End: 01-23-2024 ambulatory GILLES REGIS Not Available Start: 12-26-2023 End: 01-02-2024 [facility] Result Encounter Gilles Regis DO Work Phone: [facility] Unsolicited Start: 12-26-2023 End: 01-02-2024 [facility] Result Encounter Gilles Regis DO Work Phone: [facility] Unsolicited Start: 12-26-2023 End: 12-26-2023 ambulatory GILLES REGIS Not Available Start: 11-28-2023 End: 11-28-2023 ambulatory GILLES STACY Not Available Start: 11-08-2023 End: 11-08-2023 ambulatory GILLES REGIS Not Available Start: 10-03-2022 End: 10-04-2022 ambulatory [place] MICHAEL Kaye [place] [facility] Start: 10-03-2022 End: 10-03-2022 Subsequent hospital visit by physician Ny Michael APRN - APRIL Work Phone: [facility] Comment on above: Screening for hypoth yroidism; Diabetes mellitus screening; Lipid screening Start: 12-14-2021 End: 12-14-[address] GILLES STACY Facility:H1 Start: 02-10-2021 ambulatory FIDENCIO ANDRES Jeana y:H1 Procedures Date Procedure Procedure Detail Performing Clinician Start: 01-23-2024 Urnls dip stick/tabl et rgnt non-auto w/o micrscp Gilles Regis DO Work Phone: Start: 12-26-2023 IGP,APTIMA HPV,AGE GDLN Gilles Regis DO Work Phone: Start: 10-03-2022 End: 10-03-2022 Assay of triiodothyronine t3 free Ny Michael APRN - APRIL Work Phone: Start: 10-03-2022 Lipid panel Ny Michael APRN - ROOFING SUBCONTRACTOR Work Phone: Plan of Treatment Date Care Activity Detail Author Start: 02-20-2024 End: 02-20-2024 Patient encounter procedure 02/20/2024 9:50 AM EST Routine [facility] [address] [place] [id number] Jesika Cho PA [address] [place] [address] [facility] Start: 01-23-2024 End: 01-23-2024 Patient encounter procedure [facility] Comment on above: Arrived Start: 01-23-2024 End: 01-23-2024 Professional / ancillary services management 01/23/2024 10:00 AM EDT Ancillary Procedure [facility] [address] [place] [id number] [facility] Start: 12-01-2023 Influenza vaccination Influenza Vacc ine (#1) [facility] Start: 10-09-2023 End: 10-09-2023 Patient encounter procedure 10/09/2023 Office Visit Primary Care Ny Michael, FLIGHT ENGINEER PERFORMANCE QUALIFIED - ROOFING SUBCONTRACTOR [address] [place] [address] [facility] Start: 10-02-2023 Depression Screen [facility] Start: 10-02-2023 DTaP/Tdap/Td vaccine (1 - Tdap) DTaP/Tdap/Td vaccine (1 - Tdap) [facility] Comment on above: Postponed from 07/16 (Patient Refused) Start: 10-02-2023 Hepatitis C screening Hepatitis C sc reen [facility] [place] Comment on above: Postponed from 07/16 (Patient Refused) Start: 10-02-2023 HIV screening HIV screen [facility] [place] Comment on above: Postponed from 07/16 (Patient Refused) Start: 10-02-2023 HPV vaccine (1 - 2-d ose series) HPV vaccine (1 - 2-dose series) [facility] Comment on above: Postponed from 07/16 (Patient Refused) Start: 10-30-2022 Influenza vaccination Flu vaccine (# 1) [facility] Start: 05-01-2021 COVID-19 Vaccine (2 - Booster for Kinga series) COVID-19 Vaccine (2 - Booster for Kigna series) [facility] Start: 2017 Screening for malign ant neoplasm of cervix Pap smear [facility] Immunizations Immunization Date Immunization Notes Care Provider Fa cility 03-06-2021 COVID-19, J&J, (age 18y+), IM, 0.5 mL Ny Michael FLIGHT ENGINEER PERFORMANCE QUALIFIED - ROOFING SUBCONTRACTOR Work [facility] Payers Date Payer Category Payer Private Health Insurance [id number] 2022 Private Health Insurance [id number] 1996 Unknown [id number] 2.16.84 [id number] 1996 Unknown [id number] 2.16.84 [id number] 1996 Unknown [id number] 2.16.8 [id number] 1996 Unknown [id number] 2.16.84 [id number] 1996 Unknown [id number] 2.16.84 [id number] 1996 Unknown [id number] 2.16.84 [id number] 1996 Unknown [id number] 2.16.84 [id number] 1959 Self-pay [id number] 1959 Unknown [id number] Social History Date Type Detail Facility Start: 10-01-2022 Tobacco smoking status [facility] Ex-smoker [facility] End: 05-30-2021 History of tobacco use Current smoker [facility] End: 05-30-2021 History of tobacco use Cigarette Smoker [facility] History of tobacco use Tobacco U se Types Packs/Day Years Used Date Smoking Tobacco: Former Cigarettes 0.5 5 Quit: 05/2021 E-Cigarettes Smokeless Tobacco: Never [facility] Start: 10-01-2022 Cigarettes smoked current (pack per day) - Reported 0.5 [employer] Start: 10-01-2022 Tobacco use and exposure Smokeless tobacco non-user [employer] Start: 10-01-2022 Alcohol intake Ex-drinker (finding) [employer] Start: 10-01-2022 History SDOH Physical Activity DPW 3 [employer] Start: 10-01-2022 History SDOH Physical Activity MPS 6 [employer] Start: 10-01-2022 History SDOH Financial 5 [employer] Start: 10-01-2022 History SDOH Food Worry 1 [employer] Start: 10-01-2022 History SDOH Transport Non-Med 2 [employer] Start: 10-01-2022 Alcohol Comment Socially [employer] Start: 1995 Sex Assigned At Female [employer] Tobacco smoking stat [facility] Tobacco smoking consumption unknown [facility] Start: 09-17-2023 [facility] Start: 12-11-2022 Gender identity Identifies as female gender (finding) [facility] Start: 12-11-2022 Sexual orientation Heterosexual (finding) [facility] Goals Date Patient Goal Desired Activity /State Personal health goal History of Present illness Narrative 01-23-2024 Suzanne Angela LPN - 01/23/2024 11:10 AM EDT Note Date & Type Note Facility 01-23-2024 History of Presen t illness Narrative Reason for Appointment: Patient ID: Yu Vallecillo is a 28 y.o. female who presents for [facility] Visit Patient presents today for Return OB appointment. MEDICATIONS Current Outpatient Medications Medication Instructions MV-Min-Fe Fum-FA-DHA ( 1 PO) Take by mouth ALLERGIES No Known Allergies PROBLEMS Active Ambulatory Problems Diagnosis Date Noted No Active Ambulatory Problems Resolved Ambulatory Problems Diagnosis Date Noted No Resolved Ambulatory Problems No Additional Past Medical History HISTORY PAST MEDICAL HISTORY SOCIAL HISTORY History reviewed. No pertinent past medical history. Social History Tobacco Use Smoking status: Not on file Smokeless tobacco: Not on file Substance Use Topics Alcohol use: Not on file Drug use: Not on file FAMILY HISTORY Family History Problem Relation Name Age of Onset Cervical cancer Mother Hypertension Mother SURGICAL HISTORY Past Surgical History: Procedure Laterality Date TONSILECTOMY, ADENOIDECTOMY, BILATERAL MYRINGOTOMY AND TUBES REVIEW OF SYSTEMS Review of Systems: Review of Systems All other systems reviewed and are negative. OBJECTIVE Objective: Physical Exam Constitutional: Appearance: Normal appearance. She is well-developed. Cardiovascular: Rate and Rhythm: Normal rate and regular rhythm. Pulmonary: Effort: Pulmonary effort is normal. Breath sounds: Normal breath sounds. Abdominal: General: Bowel sounds are normal. There is no distension. Palpations: Abdomen is soft. Tenderness: There is no abdominal tenderness. There is no guarding or rebound. Musculoskeletal: General: No swelling. Normal range of motion. Right lower leg: No edema. Left lower leg: No edema. Neurological: Mental Status: She is alert and oriented to person, place, and time. Skin: General: Skin is warm and dry. Psychiatric: Mood and Affect: Mood normal. Behavior: Behavior normal. Vitals and nursing note reviewed. Exam conducted with a crew clerk present. Vitals: Estimated body mass index is 44.3 kg/m as calculated from the following: Height as of 01/01/23: 5' 9 . Weight as of this encounter: 300 lb. BP: 120/82 Patient's last menstrual period was 09/03/2023. ASSESSMENT & PLAN ICD-10-CM 1. 20 weeks gestation of Z3A.20 POCT urinalysis dipstick manually resulted 2. Second trimester Z34.92 POCT urinalysis dipstick manually resulted Patient presents today for a routine obstetrics appointment. Patient is currently 20w2d with a Estimated Date of Delivery: 06/09/24. Patient is taking 81mg Aspirin daily, had anatomy scan done today and aware she will receive GTT and CBC order at next appointment. Patient to return to clinic in 4 weeks for routine OB appointment. Documented by Suzanne Angela LPN on behalf of: Gilles Stacy DO documented in this encounter [facility] Evaluation note Note Date & Type Note Facility Evaluation note Diagnosis Screening for hypothyroidism Screening for thyroid disorder Diabetes mellitus screening Screening for diabetes mellitus Lipid screening Screening for lipoid disorders documented in this encounter [facility] Evaluation note Note Date & Type Note Facility Evaluation note Diagnosis 20 weeks gestation of Second trimester state, incidental documented in this encounter [facility] Summary Purpose Family History No Family History Records FoundNo Family History Records FoundNo Family History Records Found Advance Directives No Advanced Directives Records FoundNo Advanced Directives Records FoundNo Advanced Directives Records Found Additional Source Comments INFORMATION SOURCE (unrecogn ized section and content) DATE CREATED AUTHOR 12/29/2021 [facility] DATE CREATED AUTHOR AUTHOR'S ORGANIZ ATION 10/04/2022 [facility] DATE CREATED AUTHOR AUTHOR'S ORGANIZ ATION 01/24/2024 [facility] [employer] Care Teams (unrecognized sec tion and content) Service Plumber Relationship Specialty Start Date End Date Ny Michael, FLIGHT ENGINEER PERFORMANCE QUALIFIED - [employer]ING [employer] [address] [place] [address] PCP - General Certified Nurse Practitioner 10/01/22 Reason for Visit (unrecogniz ed section and content) Reason Comments [facility] Visit FOR RECORDS PERTAINING TO PATIENTS WHO ARE [...] BE BASED ON THE PRIMARY CLINICAL RECORDS. [employer] provides no warranty or guarantee of the accuracy or completeness of information in this document.
== END 2024-02-20 08:55 | disposition home or self-care (01) ==
LOC: NOMS 08:54
PROVIDERS: Visit Provider Obstetrics & Gynecology
DX: Z36.2 Encounter for other antenatal screening follow-up (principal); Z3A.24 24 weeks gestation of pregnancy
CPT/HCPCS: 76816

== ENCOUNTER 2024-02-26 08:13 | Outpatient (OUT) | payer OTHER, SELFPAY ==
--- OUTSIDE RECORDS SUMMARY | 2024-02-26 08:32 | XMS_ITS | CCD ---
Author Organization [facility] Care Team Providers Care Instructor Ground Services Name Role Phone FIDENCIO ANDRES Primary Care Unavailable FIDENCIO ANDRES Attending Unavailable FIDENCIO ANDRES Admitting Unavailable REGIS, DR CAMPOVERDE Admitting Unavailable REGIS, DR CAMPOVERDE Consulting Unavailable REGIS, DR CAMPOVERDE Attending Unavailable FIDENCIO ANDRES Primary Care Unavailable Stephania Ny FELICIANO CNP Primary Care Provid er [place] MICHAEL Referring Unavailable [place] MICHAEL Primary Care Unavailable Unavailable Primary Care Provider UnavailJESIKA Wilkerson Attending Unavailable GILLES STACY Attending Unavailable GILLES STACY Attending Unavailable GILLES STACY Attending Unavailable Medications Current Medications Medication Drug Class(es) Dates Sig (Normalized) Sig (Original) MV-Min-Fe Fum-FA-DHA ( 1 PO) (7 sources) MV-Min- Fe Fum-FA-DHA ( 1 PO) Take by mouth Active Problems Problem Classification Problem Date Documented Date Episodic/Chronic Immunizations and screening for infectious disease (1 source) Encounter for screening for human papillomavirus (HPV); Translations: [ENC SCREENING HUMAN PAPILLOMAVIRUS] Onset: 12-17-2021 Episodic Other and delivery including normal (4 sources) Second trimester ; Translations: [Encounter for supervision of normal , unspecified, second trimester] 01-23-2024 Episodic Other screening for suspected conditions (not mental disorders or infectious disease) (12 sources) Encounter for screening for malignant neoplasm of cervix; Translations: [Patient encounter status] Onset: 12-14-2021 Episodic Residual codes; unclassified (2 sources) Gestation period, 20 weeks; Translations: [20 weeks gestation of ] 01-23-2024 Episodic Residual codes; unclassified (2 sources) Gestation period, 24 weeks; Translations: [24 weeks gestation of ] 02-20-2024 Episodic Unclassified (7 sources) OB Reminders Onset: 12-26-2023 12-26-2023 Results Test Name Value Interpretation Reference Range Facility Urinalysis macro (dipstick) panel (U)on 02-20-2024 Bilirubin, UA Negative Negative - 4(70) +++ mg/dL [facility] Blood, UA Negative Negative - 50 Horacio/mcL [facility] Healthcare Clarity, UA Clear [facility] Healthca re Color, UA Yellow [facility] Healthcar e Glucose, UA Negative Negative - 1999(110) ++++ mg/dL [facility] Interpretation and review of laboratory results Abnormal [facility] Ketones, UA Negative Negative - 160(16) ++++ mg/dL [facility] Leukocytes, UA Trace Negative - 500+++ Nica/mcL [facility] Nitrite, UA Negative Negative - Positive [facility] pH, UA 7 5 - 9 [facility] Healthcar e Protein, UA Negative Negative - 1999(20) ++++ mg/dL [facility] Spec Grav, UA 1.025 1 - 1.03 [facility] Urobilinogen, UA 0.2 0.2 - 12 mg/dL [facility] Urinalysis macro (dipstick) panel (U)on 01-23-2024 Bilirubin, UA Negative Negative - 4(70) +++ mg/dL [facility] Blood, UA Negative Negative - 50 Horacio/mcL [facility] Clarity, UA Clear [facility] Healthca re Color, UA Yellow [facility] Healthcar e Glucose, UA Negative Negative - 1999(110) ++++ mg/dL [facility] Interpretation and review of laboratory results Abnormal [facility] Ketones, UA Negative Negative - 160(16) ++++ mg/dL [facility] Leukocytes, UA Trace Negative - 500+++ Nica/mcL [facility] Healthcare Nitrite, UA Negative Negative - Positive [facility] pH, UA 6.5 5 - 9 [facility] Healthcar e Protein, UA Negative Negative - 1999(20) ++++ mg/dL [facility] Spec Grav, UA 1.015 1 - 1.03 [facility] Urobilinogen, UA 0.2 0.2 - 12 mg/dL [facility] IGP,APTIMA HPV,AGE GDLNon AGE GDLN ACOG TESTING Note . [facility] Comment on above: TESTS RESULT FLAG UN ITS REF RANGE LAB Clinician Provided Cytology Information Source.............Cervix Other.............. No. of containers..01 ThinPrep Vial Age Algo ACOG Micaela... FLAG LEGEND: L-Low Normal,H-High Normal,LL-Alert Low,HH-Alert High <-Panic Low,>-Panic High,A-Abnormal,AA-Critical Abnormal Performed at: 01 =G [facility] [id number] Vania Cabezas MD, IGP, RFX APTIMA HPV ASCU Note . [facility] Comment on above: TESTS RESULT FLAG UN ITS REF RANGE LAB DIAGNOSIS: 02 NEGATIVE FOR INTRAEPITHELIAL LESION OR MALIGNANCY. Specimen adequacy: 02 Satisfactory for evaluation. Endocervical and/or squamous metaplastic cells (endocervical component) are present. Performed by: 02 Marissa Franklin Corporate Relations Manager ([facility]) . 02 Note: Note 02 The Pap [...] High,A-Abnormal,AA-Critical Abnormal Performed at: 02 [facility] [address] [phone] Vania Cabezas MD, Performed at: =G - [facility] [address] [id number] Unit Support Representative: Vania Cabezas MD, Phone: [phone] Performed at: - [facility] [id number] Unit Support Representative: Vania Cabezas MD, Phone: [phone] [facility] Lipid Profileon 10-04-2022 Cholesterol [Mass/Vol] 172 mg/dL Normal <200 [facility] Comment on above: Result Comment: Cholesterol Guidelines: <200 Desirable 200-240 Borderline >240 Undesirable Performed By: #### L IPR #### [employer] [facility] [place] [address] Unit Support Representative: Erik Redding MD Cholesterol in HDL [Mass/Vol] 36 mg/dL Low >40 [facility] Comment on above: Result Comment: HDL Guidelines: <40 Undesirable 40-59 Borderline >59 Desirable Performed By: #### L IPR #### [address] [address] Unit Support Representative: Erik Redding MD Cholesterol in LDL [Mass/Vol] 79 mg/dL Normal 0-130 [facility] Comment on above: Result Comment: LDL Guidelines: <100 Desirable 100-129 Near to/above Desirable 130-159 Borderline >159 Undesirable Direct (measured) LDL and calculated LDL are not interchangeable tests. Performed By: #### L IPR #### [address] [address] Unit Support Representative: Erik Redding MD Cholesterol.total/Ch olesterol in HDL [Mass ratio] 4.8 {ratio} Normal <5 [facility] Comment on above: Performed By: #### L IPR #### [address] [address] Unit Support Representative: Erik Redding MD Triglyceride [Mass/Vol] 285 mg/dL High <150 [facility] Comment on above: Result Comment: Triglyceride Guidelines: <150 Desirable 150-199 Borderline 200-499 High >499 Very high Based on AHA Guidelines for fasting triglyceride, December 2011. Performed By: #### L IPR #### [address] [address] Unit Support Representative: Erik Redding MD T3, Freeon 10-04-2022 Free T3 [Mass/Vol] 3.76 pg/mL Normal 2.02-4.43 [facility] Comment on above: Performed By: #### F T3 #### [address] [address] Unit Support Representative: Erik Redding MD #### CMPF #### [facility] [address] [place] [address] Unit Support Representative: Hemant Murphy MD Comp Metabol,Fastingon 10-03 Albumin [Mass/Vol] 4.6 g/dL Normal 3.5-5.2 [facility] Comment on above: Performed By: #### F T3 #### [address] [place] [address] Unit Support Representative: Erik Redding MD #### CMPF #### [facility] [address] [place], [place] [phone] Unit Support Representative: Hemant Murphy MD Albumin/Glob Ratio 1.3 Normal 1.0-2.5 [facility] Comment on above: Performed By: #### F T3 #### [address] [address] Unit Support Representative: Erik Redding MD #### CMPF #### [facility] [address] [place] [address] [place] [place], [place] [id number] Unit Support Representative: Hemant Murphy MD Alkaline Phos 91 U/L Normal 35-104 [facility] Comment on above: Performed By: #### F T3 #### [address] [address] Unit Support Representative: Erik Redding MD #### CMPF #### [facility] [address] [place] [address] [place] [place], [place] [phone] Unit Support Representative: Hemant Murphy MD ALT [Catalytic activity/Vol] 39 U/L High 5-33 [facility] Comment on above: Performed By: #### F T3 #### [address] [address] Unit Support Representative: Erik Redding MD #### CMPF #### [facility] [address] [place] [address] [address] [place], [place] [address] Unit Support Representative: Hemant Murphy MD Anion gap [Moles/Vol] 13 mmol/L Normal 9-17 [facility] Comment on above: Performed By: #### F T3 #### [address] [address] Unit Support Representative: Erik Redding MD #### CMPF #### [facility] [address] [place] [phone] Unit Support Representative: Hemant Murphy MD AST [Catalytic activity/Vol] 34 U/L High <32 [facility] Comment on above: Performed By: #### F T3 #### [address] [address] Unit Support Representative: Erik Redding MD #### CMPF #### [address] [place], [place] [phone] Unit Support Representative: Hemant Murphy MD Bilirubin [Mass/Vol] 0.8 mg/dL Normal 0.3-1.2 [facility] Comment on above: Performed By: #### F T3 #### [address] [address] Unit Support Representative: Erik Redding MD #### CMPF #### [address] [place] [address] Unit Support Representative: Hemant Murphy MD BUN/CRE Ratio 20 Normal 9-20 [facility] Comment on above: Performed By: #### F T3 #### [address] [address] Unit Support Representative: Erik Redding MD #### CMPF #### [facility] [address] [place] [address] Dr[address] [place] [phone] Unit Support Representative: Hemant Murphy MD Calcium [Mass/Vol] 9.2 mg/dL Normal 8.6-10.4 [facility] Comment on above: Performed By: #### F T3 #### [address] [address] Unit Support Representative: Erik Redding MD #### CMPF #### [address] [place] [phone] Unit Support Representative: Hemant Murphy MD Chloride [Moles/Vol] 101 mmol/L Normal 98-107 [facility] Comment on above: Performed By: #### F T3 #### [facility] [address] [place] [address] Unit Support Representative: Erik Redding MD #### CMPF #### [facility] [address] [place], [place] [phone] Unit Support Representative: Hemant Murphy MD CO2 [Moles/Vol] 22 mmol/L Normal 20-31 [facility] Comment on above: Performed By: #### F T3 #### [address] [address] Unit Support Representative: Erik Redding MD #### CMPF #### [facility] [address] [place], [place] [phone] Unit Support Representative: Hemant Murphy MD Creatinine [Mass/Vol] 0.54 mg/dL Normal 0.50-0.90 [facility] Comment on above: Performed By: #### F T3 #### [address] [address] Unit Support Representative: Erik Redding MD #### CMPF #### [facility] [address] [place] [address] [place] [phone] Unit Support Representative: Hemant Murphy MD GFR/1.73 sq M.predicted among non-blacks MDRD (S/P/Bld) [Vol rate/Area] mL/min/{1.73_m2} Normal >60 [facility] Comment on above: Result Comment: These [...] secretion. Performed By: #### F T3 #### [address] [place] [address] Unit Support Representative: Erik Redding MD #### CMPF #### [address] [place], [place] [phone] Unit Support Representative: Hemant Murphy MD Glucose [Mass/Vol] 88 mg/dL Normal 70-99 [facility] Comment on above: Performed By: #### F T3 #### [address] [address] Unit Support Representative: Erik Redding MD #### CMPF #### [address] [place], [place] [phone] Unit Support Representative: Hemant Murphy MD Potassium [Moles/Vol] 4.3 mmol/L Normal 3.7-5.3 [facility] Comment on above: Performed By: #### F T3 #### [address] [address] Unit Support Representative: Erik Redding MD #### CMPF #### [address] [place] [address] Unit Support Representative: Hemant Murphy MD Protein [Mass/Vol] 8.1 g/dL Normal 6.4-8.3 [facility] Comment on above: Performed By: #### F T3 #### [address] [address] Unit Support Representative: Erik Redding MD #### CMPF #### [address] [place] [address] Unit Support Representative: Hemant Murphy MD Sodium [Moles/Vol] 136 mmol/L Normal 135-144 [facility] Comment on above: Performed By: #### F T3 #### [address] [address] Unit Support Representative: Erik Redding MD #### CMPF #### [facility] [address] [place] [address] Unit Support Representative: Hemant Murphy MD Urea nitrogen [Mass/Vol] 11 mg/dL Normal 6-20 [facility] Comment on above: Performed By: #### F T3 #### [facility] [address] [place], [place] [phone] Unit Support Representative: Erik Redding MD #### CMPF #### [facility] [address] [place] [address] Unit Support Representative: Hemant Murphy MD Comprehensive Metabolic Pane l, Fastingon 10-03-2022 Albumin [Mass/Vol] 4.6 g/dL 3.5 - 5.2 g/dL [facility] Albumin/Globulin [Mass ratio] 1.3 {ratio} 1.0 - 2.5 [facility] ALP [Catalytic activity/Vol] 91 U/L 35 - 104 U/L [facility] ALT [Catalytic activity/Vol] 39 U/L High 5 - 33 U/L [facility] Anion gap [Moles/Vol] 13 mmol/L 9 - 17 mmol/L [facility] AST [Catalytic activity/Vol] 34 U/L High NINF - 32 U/L [facility] Bilirubin [Mass/Vol] 0.8 mg/dL 0.3 - 1 .2 mg/dL [facility] Calcium [Mass/Vol] 9.2 mg/dL 8.6 - 10. 4 mg/dL [facility] Chloride [Moles/Vol] 101 mmol/L 98 - 10 7 mmol/L [facility] CO2 [Moles/Vol] 22 mmol/L 20 - 31 mmol/L [facility] Creatinine [Mass/Vol] 0.54 mg/dL 0.50 - 0.90 mg/dL [facility] GFR/1.73 sq M.predicted MDRD (S/P/Bld) [Vol rate/Area] - [facility] Comment on above: These results are not [...] [Mass/Vol] 88 mg/dL 70 - 99 mg/dL [facility] Interpretation and review of laboratory results Abnormal [facility] Potassium [Moles/Vol] 4.3 mmol/L 3.7 - 5.3 mmol/L [facility] Protein [Mass/Vol] 8.1 g/dL 6.4 - 8.3 g/dL [facility] Sodium [Moles/Vol] 136 mmol/L 135 - 144 mmol/L [facility] Urea nitrogen [Mass/Vol] 11 mg/dL 6 - 20 mg/dL [facility] Urea nitrogen/Creatinine [Mass ratio] 20 mg/mg 9 - 20 [email or web address] Lipid Panelon 10-03-2022 Cholesterol [Mass/Vol] 172 mg/dL NINF - 200 mg/dL [facility] Comment on above: Cholesterol Guidelines: <200 Desirable 200-240 Borderline >240 Undesirable Cholesterol in HDL [Mass/Vol] 36 mg/dL Low 40 - PINF mg/dL [facility] Comment on above: HDL Guidelines: <40 Undesirable 40-59 Borderline >59 Desirable Cholesterol in LDL [Mass/Vol] 79 mg/dL 0 - 130 mg/dL [facility] Comment on above: LDL Guidelines: <100 Desirable 100-129 Near to/above Desirable 130-159 Borderline >159 Undesirable Direct (measured) LDL and calculated LDL are not interchangeable tests. Cholesterol.total/Ch olesterol in HDL [Mass ratio] 4.8 {ratio} NINF - 5 [facility] Interpretation and review of laboratory results Abnormal [facility] Triglyceride [Mass/Vol] 285 mg/dL High NINF - 150 mg/dL [facility] Comment on above: Triglyceride Guidelines: <150 Desirable 150-199 Borderline 200-499 High >499 Very high Based on AHA Guidelines for fasting triglyceride, December 2011. [facility] T3, Freeon 10-03-2022 Free T3 [Mass/Vol] 3.76 pg/mL 2.02 - 4. 43 pg/mL [facility] TSH With Reflex [id number] TSH Qn 1.66 m[IU]/L [facility] TSH w/reflex to [id number] Thyroid Stim. Horm. 1.66 uIU/mL Normal 0.30-5.00 [facility] Comment on above: Performed By: #### T SHX #### [facility] [address] [place], [facility] Unit Support Representative: Hemant Murphy MD PAP ACOG PANEL 2: 21 to 29on 12-20-[address] [facility] Comment on above: Performed By: #### [id number] #### [facility] [address] [place] [address] Dr. Sachin Pereira Age Gdln ACOG Testing - [facility] Comment on above: Performed By: #### [id number] #### [facility] [address] [place] [address] Dr. Sachin Pereira DIAGNOSIS: Comment [facility] Comment on above: Result Comment: NEGA TIVE FOR INTRAEPITHELIAL LESION OR MALIGNANCY. Performed By: #### [id number] #### [facility] [address] [place] [address] Dr. Sachin Pereira Methodology: Comment [facility] Comment on above: Result Comment: This liquid based ThinPrep(R) pap test was screened with the use of an image guided system. Performed By: #### 4 [id number] #### [facility] [address] [place] [address] Dr. Sachin Pereira Note: Comment [facility] Comment on above: Result Comment: The Pap smear is a screening test designed to aid in the detection of premalignant and malignant conditions of the uterine cervix. It is not a diagnostic procedure and should not be used as the sole means of detecting cervical cancer. Both false-positive and false-negative reports do occur. . Performed By: #### [id number] #### [facility] [address] [place] [address] Dr. Sachin Pereira Performed by: Comment Normal [facility] Comment on above: Result Comment: Collette Holliday, Corporate Relations Manager (ASCP) Performed By: #### 4 [id number] #### [facility] [address] [place] [address] Dr. Sachin Pereira Reflex Criteria: Comment Normal [facility] Comment on above: Result Comment: The HPV DNA reflex criteria were not met with this specimen result therefore, no HPV testing was performed. . Performed By: #### 4 [id number] #### [facility] [address] [place] [address] Dr. Sachin Pereira Specimen adequacy: Comment Normal [facility] Comment on above: Result Comment: Sati sfactory for evaluation. Endocervical and/or squamous metaplastic cells (endocervical component) are present. Performed By: #### 4 [id number] #### [facility] [address] [place] [address] Dr. Sachin Pereira Vital Signs Date Time Vital Sign Value Performing Clinician Carmelo douglas 02-20-2024 10:16-0500 Body mass index (BMI) [Ratio] 44.45 kg/m2 Jesika MARIE Work Phone: [facility] 02-20-2024 10:16-0500 Body weight 136.53 kg Jesika MARIE Work Phone: [facility] 02-20-2024 10:16-0500 Diastolic blood pressure 84 mm[Hg] Jesika MARIE Work Phone: [facility] 02-20-2024 10:16-0500 Systolic blood pressure 124 mm[Hg] Jesika MARIE Work Phone: [facility] 01-23-2024 11:02-0400 Body mass index (BMI) [Ratio] 44.3 kg/m2 Gilles Stacy DO Work Phone: [facility] 01-23-2024 11:02-0400 Body weight 136.08 kg Gilles Regis DO Work Phone: [facility] 01-23-2024 11:02-0400 Diastolic blood pressure 82 mm[Hg] Gilles Regis DO Work Phone: [facility] 01-23-2024 11:02-0400 Systolic blood pressure 120 mm[Hg] Gilles Regis DO Work Phone: [facility] Encounters Encounter Date Encounter Type Care Provider Facility Start: 02-20-2024 End: 02-20-2024 Bamboo flowsheet Jesika MARIE Work Phone: [facility] Start: 02-20-2024 End: 02-20-2024 Bamboo flowsheet Jesika MARIE Work Phone: [facility] Start: 02-20-2024 End: 02-20-2024 flow sheet Jesika MARIE Work Phone: [facility] Comment on above: Second trimester pre gnancy; 24 weeks gestation of ; Diabetes mellitus screening Start: 02-20-2024 End: 02-20-2024 ambulatory JESIKA MCKNIGHT Not Available Start: 01-23-2024 End: 01-23-2024 Bamboo flowsheet Gilles Regis DO Work Phone: [facility] Start: 01-23-2024 End: 01-23-2024 Bamboo flowsheet Gilles Regis DO Work Phone: [facility] Start: 01-23-2024 End: 01-23-2024 flow sheet Gilles Regis DO Work Phone: [facility] Comment on above: 20 weeks gestation o f ; Second trimester Start: 01-23-2024 End: 01-23-2024 ambulatory GILLES REGIS Not Available Start: 12-26-2023 End: 01-02-2024 Clinisync Result Encounter Gilles Regis DO Work Phone: [facility] External Department Unsolicited Start: 12-26-2023 End: 01-02-2024 Clinisync Result Encounter Gilles Regis DO Work Phone: [facility] External Department Unsolicited Start: 12-26-2023 End: 12-26-2023 ambulatory GILLES STACY Not Available Start: 11-28-2023 End: 11-28-2023 ambulatory GILLES STACY Not Available Start: 11-08-2023 End: 11-08-2023 ambulatory JESIKA MCKNIGHT Not Available Start: 10-03-2022 End: 10-04-2022 [facility]ulatory [place] [facility] Start: 10-03-2022 End: 10-03-2022 Subsequent hospital visit by physician Ny Guillory CNP Work Phone: [facility] Laboratory Comment on above: Screening for hypoth yroidism; Diabetes mellitus screening; Lipid screening Start: 12-14-2021 End: 12-14-[address] GILLES STACY Facility:H1 Start: 02-10-2021 ambulatory FIDENCIO Hills y:H1 Procedures Date Procedure Procedure Detail Performing Clinician Start: 02-20-2024 Urnls dip stick/tabl et rgnt non-auto w/o micrscp Jesika Mcknight PA Work Phone: Start: 01-23-2024 Urnls dip stick/tabl et rgnt non-auto w/o micrscp Gilles Regis DO Work Phone: Start: 12-26-2023 IGP,APTIMA HPV,AGE GDLN Gilles Regis DO Work Phone: Start: 10-03-2022 End: 10-03-2022 Assay of triiodothyronine t3 free Ny Michael APRN - LAUNCH OPERATOR Work Phone: Start: 10-03-2022 Lipid panel Ny Michael APRN - LAUNCH OPERATOR Work Phone: Plan of Treatment Date Care Activity Detail Author Start: 03-19-2024 End: 03-19-2024 Patient encounter procedure 03/19/2024 10:30 AM EST Routine [facility] [address] [place] [address] Gilles Stacy, [address] [place], [place] [id number] [facility] Start: 02-20-2024 End: 02-19-2025 CBC panel - Blood by Automated count CBC Lab Routine Diabetes mellitus screening Expected: 02/20/2024 (Approximate), Expires: 02/19/2025 [facility] Work Phone: Comment on above: Expected: 02/20/2024 (Approximate), Expires: 02/19/2025 Start: 02-20-2024 End: 02-19-2025 Measurement of glucose 1 hour after glucose challenge for glucose tolerance test Glucose tolerance, 1 hour Lab Routine Diabetes mellitus screening Expected: 02/20/2024 (Approximate), Expires: 02/19/2025 [facility] Comment on above: Expected: 02/20/2024 (Approximate), Expires: 02/19/2025 Start: 02-20-2024 End: 02-20-2024 Patient encounter procedure [facility] Comment on above: Arrived Start: 01-23-2024 End: 01-23-2024 Patient encounter procedure [facility] Comment on above: Arrived Start: 01-23-2024 End: 01-23-2024 Professional / ancillary services management 01/23/2024 10:00 AM EDT Ancillary Procedure [facility] [address] [place] [address] [facility] Start: 12-01-2023 Influenza vaccination Influenza Vacc ine (#1) [facility] Start: 10-09-2023 End: 10-09-2023 Patient encounter procedure 10/09/2023 Office Visit Primary Care Stephania, Ny Causey, CHOIR TEACHER - LAUNCH OPERATOR [address] [place] [address] [facility] Start: 10-02-2023 Depression Screen Depression Screen [facility] Start: 10-02-2023 DTaP/Tdap/Td vaccine (1 - Tdap) DTaP/Tdap/Td vaccine (1 - Tdap) [facility] Comment on above: Postponed from 07/16 (Patient Refused) Start: 10-02-2023 Hepatitis C screening Hepatitis C sc reen [facility] Comment on above: Postponed from 07/16 (Patient Refused) Start: 10-02-2023 HIV screening HIV screen [facility] Comment on above: Postponed from 07/16 (Patient Refused) Start: 10-02-2023 HPV vaccine (1 - 2-d ose series) HPV vaccine (1 - 2-dose series) [facility] Comment on above: Postponed from 07/16 (Patient Refused) Start: 10-30-2022 Influenza vaccination Flu vaccine (# 1) [facility] Start: 05-01-2021 COVID-19 Vaccine (2 - Booster for Kinga series) COVID-19 Vaccine (2 - Booster for Kinga series) [facility] Start: 2017 Screening for malign ant neoplasm of cervix Pap smear [facility] Immunizations Immunization Date Immunization Notes Care Provider Fa cility 03-06-2021 COVID-19, J&J, (age 18y+), IM, 0.5 mL Ny Michael CHOIR TEACHER - LAUNCH OPERATOR Work Phone: [facility] Payers Date Payer Category Payer Private Health Insurance [id number] 2022 Private Health Insurance [id number] 1996 Unknown [id number] 2.16.84 [id number] 1996 Unknown [id number] 2.16.84 [id number] 1996 Unknown [id number] 2.16.8 [id number] 1996 Unknown [id number] 2.16.84 [id number] 1996 Unknown [id number] 2.16.84 [id number] 1996 Unknown [id number] 2.16.84 [id number] 1996 Unknown [id number] 2.16.84 [id number] 1996 Unknown [id number] 2.16.84 [id number] 1959 Self-pay [id number] 1959 Unknown [id number] Social History Date Type Detail Facility Start: 10-01-2022 Tobacco smoking status [facility] Ex-smoker [facility] End: 05-30-2021 History of tobacco use Current smoker [facility] End: 05-30-2021 History of tobacco use Cigarette Smoker [facility] History of tobacco use Tobacco U se Types Packs/Day Years Used Date Smoking Tobacco: Former Cigarettes 0.5 5 Quit: 05/2021 E-Cigarettes Smokeless Tobacco: Never [facility] Start: 10-01-2022 Cigarettes smoked current (pack per day) - Reported 0.5 [facility] Start: 10-01-2022 Tobacco use and exposure Smokeless tobacco non-user [facility] Start: 10-01-2022 Alcohol intake Ex-drinker (finding) [facility] Start: 10-01-2022 History SDOH Physical Activity DPW 3 [facility] Start: 10-01-2022 History SDOH Physical Activity MPS 6 [facility] Start: 10-01-2022 History SDOH Financial 5 [facility] Start: 10-01-2022 History SDOH Food Worry 1 [facility] Start: 10-01-2022 History SDOH Transport Non-Med 2 [facility] Start: 10-01-2022 Alcohol Comment Socially [facility] Start: 1995 Sex Assigned At Female [facility] Tobacco smoking stat us [facility] Tobacco smoking consumption unknown [facility] Start: 09-17-2023 [facility] Start: 12-11-2022 Gender identity Identifies as female gender (finding) [facility] Start: 12-11-2022 Sexual orientation Heterosexual (finding) [facility] Goals Date Patient Goal Desired Activity /State Personal health goal History of Present illness Narrative 02-20-2024 CYNTHIA Parker - 02/20/2024 9:50 AM EST Note Date & Type Note Facility 02-20-2024 History of Presen t illness Narrative Reason for Appointment: Patient ID: Yu Vallecillo is a 28 y.o. female who presents for Routine Visit Patient presents today for Return OB appointment. MEDICATIONS Current Outpatient Medications Medication Instructions MV-Min-Fe Fum-FA-DHA ( 1 PO) Take by mouth ALLERGIES No Known Allergies PROBLEMS Active Ambulatory Problems Diagnosis Date Noted No Active Ambulatory Problems Resolved Ambulatory Problems Diagnosis Date Noted No Resolved Ambulatory Problems No Additional Past Medical History HISTORY PAST MEDICAL HISTORY SOCIAL HISTORY No past medical history on file. Social History Tobacco Use Smoking status: Not [...] nursing note reviewed. Exam conducted with a cooperative education coordinator present. Vitals: Estimated body mass index is 44.3 kg/m as calculated from the following: Height as of 01/01/23: 5' 9 . Weight as of 01/23/24: 300 lb. BP: Patient's last menstrual period was 09/03/2023. ASSESSMENT & PLAN ICD-10-CM 1. Second trimester Z34.92 POCT urinalysis dipstick manually resulted 2. 24 weeks gestation of Z3A.24 3. Diabetes mellitus screening Z13.1 CBC Glucose tolerance, 1 hour CBC Glucose tolerance, 1 hour Return OB: Patient presents today for a routine obstetrics appointment. Patient is currently 24w2d . Patient states she is doing well but has complaints of being tired due to current . Patient has verbalizes frequent movement. labor precautions was discussed/given and patient was instructed to perform kick counts three times a day. Pt was given the 1 hour glucose order to have done at [facility]. Orders Placed This Encounter Procedures CBC Glucose tolerance, 1 hour POCT urinalysis dipstick manually resulted Follow Up: Patient is to return to office in 2 week for routine OB appointment. Documented by Giovana Azar MA on behalf of: CYNTHIA Parker documented in this encounter [facility] History of Present illness Narrative 01-23-2024 Suzanne [...] nursing note reviewed. Exam conducted with a cooperative education coordinator present. Vitals: Estimated body mass index is [...] Gilles Stacy DO documented in this encounter [facility] Evaluation note Note Date & Type Note Facility Evaluation note Diagnosis Screening for hypothyroidism Screening for thyroid disorder Diabetes mellitus screening Screening for diabetes mellitus Lipid screening Screening for lipoid disorders documented in this encounter [facility] Evaluation note Note Date & Type Note Facility Evaluation note Diagnosis 20 weeks gestation of Second trimester state, incidental documented in this encounter [facility] Healthcare Evaluation note Note Date & Type Note Facility Evaluation note Diagnosis Second trimester state, incidental 24 weeks gestation of Diabetes mellitus screening Screening for diabetes mellitus documented in this encounter [facility] Healthcare Summary Purpose Family History No Family [...] pital DATE CREATED AUTHOR AUTHOR'S ORGANIZ ATION 02/23/2024 [facility] [employer] Care Teams (unrecognized sec tion and content) Instructor Ground Services Relationship Specialty Start Date End Date Ny Michael, CHOIR TEACHER - LAUNCH OPERATOR [address] [place] [address] PCP - General Certified Nurse Practitioner 10/01/22 Reason for Visit (unrecogniz ed section and content) Reason Comments Well Women Visit Reason Comments Routine Visit FOR RECORDS PERTAINING TO PATIENTS WHO [...] BE BASED ON THE PRIMARY CLINICAL RECORDS. [employer] provides no warranty or guarantee of the accuracy or completeness of information in this document.
[2024-02-26 09:35] LABS: Basophils Absolute Auto 0.1 10^3/uL (0.0-0.1); Basophils Percent Auto 0.5 % (0.2-2.0); Eosinophils Absolute Auto 0.3 10^3/uL (0.0-0.7); Eosinophils Percent Auto 2.4 % (0.9-7.0); Hematocrit 36.9 % (36.0-48.0); Hemoglobin 11.7 g/dL (12.0-16.0); Immature Granulocytes Abs Auto 0.07 10^3/uL (0.00-0.03); Immature Granulocytes Pct Auto 0.5 % (0.0-0.5); Lymphocytes Absolute Auto 3.3 10^3/uL (1.2-3.8); Lymphocytes Percent Auto 22.6 % (20.5-60.0); Mean Corpuscular HGB Conc 31.7 g/dL (29.9-35.2); Mean Corpuscular Hemoglobin 25.6 pg (26.7-34.0); Mean Corpuscular Volume 80.7 fL (81.0-99.0); Mean Platelet Volume 10.4 fL (9.5-13.5); Monocytes Percent Auto 6.7 % (1.7-12.0); Neutrophils Absolute Auto 9.7 10^3/uL (1.4-6.5); Neutrophils Percent Auto 67.3 % (43.0-75.0); Platelet Count 339 10^3/uL (150-450); Red Blood Count 4.57 10^6/uL (4.20-5.40); Red Cell Distribution Width 14.7 % (11.0-15.0); White Blood Count 14.4 10^3/uL (4.0-11.0)
[2024-02-26 09:43] LABS: Glucose 1 Hour 152 mg/dL (<130)
== END 2024-02-26 08:14 | disposition home or self-care (01) ==
LOC: LAB 08:15
PROVIDERS: Visit Provider Physician Assistant
DX: Z13.1 Encounter for screening for diabetes mellitus (principal)
CPT/HCPCS: 36415; 82950; 85025

== ENCOUNTER 2024-03-12 07:47 | Outpatient (OUT) | payer OTHER, SELFPAY ==
--- OUTSIDE RECORDS SUMMARY | 2024-03-12 08:07 | XMS_ITS | CCD ---
Author Organization [facility] Care Team Providers Care [place] [employer] Name Role Phone FIDENCIO ANDRES Primary Care [...] Attending Unavailable GILLES STACY Attending Unavailable GILLES STAYC Attending Unavailable GILLES STACY Attending Unavailable Medications Current Medications Medication Drug Class(es) Dates Sig (Normalized) Sig (Original) MV-Min-Fe Fum-FA-DHA ( 1 PO) (8 sources) MV-Min- Fe Fum-FA-DHA ( 1 PO) [...] weeks gestation of ] 02-20-2024 Episodic Unclassified (8 sources) OB Reminders Onset: 12-26-2023 12-26-2023 Results Test Name Value Interpretation Reference Range Facility ALL CBC WITH AUTO DIFFon BASOPHILS ABSOLUTE AUTO 0.1 [facility] Basophils/100 WBC (Bld) 0.5 % 0.2 - 2.0 % [facility] Eosinophils/100 WBC (Bld) 2.4 % 0.9 - 7.0 % [facility] Erythrocyte distribution width (RBC) [Ratio] 14.7 % 11.0 - 15.0 % [facility] Hematocrit (Bld) [Volume fraction] 36.9 % 36.0 - 48.0 % [facility] Healthcar e Hemoglobin (Bld) [Mass/Vol] 11.7 g/dL Low 12.0 - 16.0 g/dL [facility] IMMATURE GRANULOCYTES ABS AUTO 0.07 High [facility] Immature granulocytes/100 WBC (Bld) 0.5 % 0.0 - 0.5 % [facility] Interpretation and review of laboratory results Abnormal [facility] LYMPHOCYTES ABSOLUTE AUTO 3.3 [facility] Lymphocytes/100 WBC (Bld) 22.6 % 20.5 - 60.0 % [facility] MCH (RBC) [Entitic mass] 25.6 pg Low 26.7 - 34.0 pg [facility] MCHC (RBC) [Mass/Vol] 31.7 g/dL 29.9 - 35.2 g/dL [facility] MCV (RBC) [Entitic vol] 80.7 fL Low 81.0 - 99.0 fL [facility] MONOCYTES ABSOLUTE AUTO 1 High [facility] Monocytes/100 WBC (Bld) 6.7 % 1.7 - 12.0 % [facility] NEUTROPHILS ABSOLUTE AUTO 9.7 High [facility] Neutrophils/100 WBC (Bld) 67.3 % 43.0 - 75.0 % [facility] Platelet mean volume (Bld) [Entitic vol] 10.4 fL 9.5 - 13.5 fL [facility] EO # 0.3 [facility] PLT 339 [facility] RBC 4.57 [facility] WBC 14.4 High [facility] Healthcar e CLINISYNC [facility] Healthcar e Urinalysis macro (dipstick) panel (U)on 02-20-2024 Bilirubin, UA Negative Negative - 4(70) +++ mg/dL [facility] Blood, UA Negative Negative - 50 Horacio/mcL [facility] Healthcare Clarity, UA Clear [facility] re Color, UA Yellow [facility] Healthcar e Glucose, UA Negative Negative - 1999(110) ++++ mg/dL [facility] Interpretation and review of laboratory results Abnormal [facility] Ketones, UA Negative Negative - 160(16) ++++ mg/dL [facility] Healthcare Leukocytes, UA Trace Negative - 500+++ Nica/mcL [facility] Healthcare Nitrite, UA Negative Negative - Positive [facility] pH, UA 7 5 - 9 [facility] Healthcar e Protein, UA Negative Negative - 1999(20) ++++ mg/dL [facility] Healthcare Spec Grav, UA 1.025 1 - 1.03 [facility] Urobilinogen, UA 0.2 0.2 - 12 mg/dL [facility] Urinalysis macro (dipstick) panel (U)on 01-23-2024 Bilirubin, UA Negative Negative - 4(70) +++ mg/dL [facility] Blood, UA Negative Negative - 50 Horacio/mcL [facility] Healthcare Clarity, UA Clear [facility] Color, UA Yellow [facility] Healthcar e Glucose, UA Negative Negative - 1999(110) ++++ mg/dL [facility] Interpretation and review of laboratory results Abnormal [facility] Ketones, UA Negative Negative - 160(16) ++++ mg/dL [facility] Leukocytes, UA Trace Negative - 500+++ Nica/mcL [facility] Healthcare Nitrite, UA Negative Negative - Positive [facility] pH, UA 6.5 5 - 9 [facility] Protein, UA Negative Negative - 1999(20) ++++ mg/dL [facility] Spec Grav, UA 1.015 1 - 1.03 [facility] Urobilinogen, UA 0.2 0.2 - 12 mg/dL [facility] IGP,APTIMA HPV,AGE GDLNon AGE GDLN ACOG TESTING Note . [facility] Comment on above: TESTS RESULT FLAG UN ITS REF RANGE LAB Clinician Provided Cytology Information Source.............Cervix Other.............. No. of containers..01 ThinPrep Vial Age Raul Hinojosa... FLAG LEGEND: L-Low Normal,H-High Normal,LL-Alert Low,HH-Alert High <-Panic Low,>-Panic High,A-Abnormal,AA-Critical Abnormal Performed at: 01 =G [facility] [place] [address] Vania Cabezas MD, IGP, RFX APTIMA HPV ASCU Note . [facility] Comment on above: TESTS RESULT FLAG UN ITS REF RANGE LAB DIAGNOSIS: 02 NEGATIVE FOR INTRAEPITHELIAL LESION OR MALIGNANCY. Specimen adequacy: 02 Satisfactory for evaluation. Endocervical and/or squamous metaplastic cells (endocervical component) are present. Performed by: Riley Franklin, Manager Floral ([facility]) . 02 Note: Note 02 The [...] <-Panic Low,>-Panic High,A-Abnormal,AA-Critical Abnormal Performed at: [address] [address] Vania Cabezas MD, Performed at: =G - [facility] [address] [id number] [employer] Milling Machine Tender: Vania Cabezas MD, Phone: [phone] Performed at: - [facility] [id number] [employer] Machine Tender: Vania Cabezas MD, Phone: [phone] [facility] Lipid Profileon 10-04-2022 Cholesterol [Mass/Vol] 172 mg/dL Normal <200 [facility] Comment on above: Result Comment: Cholesterol Guidelines: <200 Desirable 200-240 Borderline >240 Undesirable Performed By: #### L IPR #### [employer] [address] [place] [id number] [employer] Milling Machine Tender: Erik Redding MD Cholesterol in HDL [Mass/Vol] 36 mg/dL Low >40 [facility] Comment on above: Result Comment: HDL Guidelines: <40 Undesirable 40-59 Borderline >59 Desirable Performed By: #### L IPR #### [employer] [facility] [place] [address] [employer] Milling Machine Tender: Erik Redding MD Cholesterol in LDL [Mass/Vol] 79 mg/dL Normal 0-130 [facility] Comment on above: Result Comment: LDL Guidelines: <100 Desirable 100-129 Near to/above Desirable 130-159 Borderline >159 Undesirable Direct (measured) LDL and calculated LDL are not interchangeable tests. Performed By: #### L IPR #### [address] [address] [employer]illing Machine Tender: Erik Redding MD Cholesterol.total/Ch olesterol in HDL [Mass ratio] 4.8 {ratio} Normal <5 [facility] Comment on above: Performed By: #### L IPR #### [address] [address] [employer]illing Machine Tender: Erik Redding MD Triglyceride [Mass/Vol] 285 mg/dL High <150 [facility] Comment on above: Result Comment: Triglyceride Guidelines: <150 Desirable 150-199 Borderline 200-499 High >499 Very high Based on AHA Guidelines for fasting triglyceride, December 2011. Performed By: #### L IPR #### [address] [address] [employer]illing Machine Tender: Erik Redding MD T3, Freeon 8 Free T3 [Mass/Vol] 3.76 pg/mL Normal 2.02-4.43 [facility] Comment on above: Performed By: #### F T3 #### [address] [address] [employer]illing Machine Tender: Erik Redding MD #### CMPF #### [facility] [address] [place] [address] [employer]illing Machine Tender: Hemant Murphy MD Comp Metabol,Fasting 10-03 Albumin [Mass/Vol] 4.6 g/dL Normal 3.5-5.2 [facility] Comment on above: Performed By: #### F T3 #### [address] [address] [employer]illing Machine Tender: Erik Redding MD #### CMPF #### [facility] [address] [place], [place] [phone] [employer]illing Machine Tender: Hemant Murphy MD Albumin/Glob Ratio 1.3 Normal 1.0-2.5 [facility] Comment on above: Performed By: #### F T3 #### [address] [place] [address] [employer] Milling Machine Tender: Erik Redding MD #### CMPF #### [facility] [address] [place], [place] [phone] [employer] Machine Tender: Hemant Murphy MD Alkaline Phos 91 U/L Normal 35-104 [facility] Comment on above: Performed By: #### F T3 #### [address] [address] [employer] Tender: Erik Redding MD #### CMPF #### [facility] [address] [place] [address] Dr. [place], [place] [phone] [employer]illing Machine Tender: Hemant Murphy MD ALT [Catalytic activity/Vol] 39 U/L High 5-33 [facility] Comment on above: Performed By: #### F T3 #### [address] [place] [address] [employer] Tender: Erik Redding MD #### CMPF #### [facility] [address] [place] [address] Dr. [place], [place] [phone] [employer] Machine Tender: Hemant Murphy MD Anion gap [Moles/Vol] 13 mmol/L Normal 9-17 [facility] Comment on above: Performed By: #### F T3 #### [address] [address] [employer]illing Machine Tender: Erik Redding MD #### CMPF #### [address] [place], [place] [phone] [employer] Machine Tender: Hemant Murphy MD AST [Catalytic activity/Vol] 34 U/L High <32 [facility] Comment on above: Performed By: #### F T3 #### [address] [place] [address] [employer] Tender: Erik Redding MD #### CMPF #### [facility] [address] [place], [place] [phone] [employer] Tender: Hemant Murphy MD Bilirubin [Mass/Vol] 0.8 mg/dL Normal 0.3-1.2 [facility] Comment on above: Performed By: #### F T3 #### [address] [address] [employer] Machine Tender: Erik Redding MD #### CMPF #### [facility] [address] [place] [address] [address]. [place] [phone] [employer]illing Machine Tender: Hemant Murphy MD BUN/CRE Ratio 20 Normal 9-20 [facility] Comment on above: Performed By: #### F T3 #### [address] [address] [employer] Tender: Erik Redding MD #### CMPF #### [facility] [address] [place] [address] Dr. [place] [phone] [employer] Machine Tender: Hemant Murphy MD Calcium [Mass/Vol] 9.2 mg/dL Normal 8.6-10.4 [facility] Comment on above: Performed By: #### F T3 #### [address] [address] [employer] Tender: Erik Redding MD #### CMPF #### [facility] [address] [place], [place] [phone] [employer] Machine Tender: Hemant Murphy MD Chloride [Moles/Vol] 101 mmol/L Normal 98-107 [facility] Comment on above: Performed By: #### F T3 #### [address] [place] [address] [employer] Tender: Erik Reddign MD #### CMPF #### [facility] [address] [place], [place] [phone] [employer] Tender: Hemant Murphy MD CO2 [Moles/Vol] 22 mmol/L Normal 20-31 [facility] Comment on above: Performed By: #### F T3 #### [address] [address] [employer] Tender: Erik Redding MD #### CMPF #### [facility] [address] [place], [place] [phone] [employer] Tender: Hemant Murphy MD Creatinine [Mass/Vol] 0.54 mg/dL Normal 0.50-0.90 [facility] Comment on above: Performed By: #### F T3 #### [address] [address] [employer] Machine Tender: Erik Redding MD #### CMPF #### [facility] [address] [place] [address] [employer] Machine Tender: Hemant Murphy MD GFR/1.73 sq M.predicted among non-blacks MDRD (S/P/Bld) [Vol rate/Area] mL/min/{1.73_m2} Normal >60 [facility] Comment on above: Result Comment: [...] secretion. Performed By: #### F T3 #### [address] [address] [employer] Tender: Erik Redding MD #### CMPF #### [address] [place], [place] [phone] [employer] Machine Tender: Hemant Murphy MD Glucose [Mass/Vol] 88 mg/dL Normal 70-99 [facility] Comment on above: Performed By: #### F T3 #### [address] [address] [employer] Tender: Erik Redding MD #### CMPF #### [address] [place], [place] 1380183 [employer] Machine Tender: Hemant Murphy MD Potassium [Moles/Vol] 4.3 mmol/L Normal 3.7-5.3 [facility] Comment on above: Performed By: #### F T3 #### [address] [address] [employer] Tender: Erik Redding MD #### CMPF #### [address] [place], [place] 3889083 [employer] Tender: Hemant Murphy MD Protein [Mass/Vol] 8.1 g/dL Normal 6.4-8.3 [facility] Comment on above: Performed By: #### F T3 #### [address] [address] [employer] Machine Tender: Erik Redding MD #### CMPF #### [address] [place], [place] 7181083 [employer] Tender: Hemant Murphy MD Sodium [Moles/Vol] 136 mmol/L Normal 135-144 [facility] Comment on above: Performed By: #### F T3 #### [address] [address] [employer] Tender: Erik Redding MD #### CMPF #### [address] [place] [address] [employer]illing Machine Tender: Hemant Murphy MD Urea nitrogen [Mass/Vol] 11 mg/dL Normal 6-20 [facility] Comment on above: Performed By: #### F T3 #### [facility] [address] [place], [place] [phone] [employer] Tender: Erik Redding MD #### CMPF #### [facility] [address] [place] [address] [employer] Milling Machine Tender: Hemant Murphy MD Comprehensive Metabolic Pane l, Fastingon 10-03-2022 Albumin [Mass/Vol] 4.6 g/dL 3.5 - 5.2 g/dL [facility] Albumin/Globulin [Mass ratio] 1.3 {ratio} 1.0 - 2.5 [facility] ALP [Catalytic activity/Vol] 91 U/L 35 - 104 U/L [facility] ALT [Catalytic activity/Vol] 39 U/L High 5 - 33 U/L [facility] Anion gap [Moles/Vol] 13 mmol/L 9 - 17 mmol/L [facility] AST [Catalytic activity/Vol] 34 U/L High NINF - 32 U/L [facility] Bilirubin [Mass/Vol] 0.8 mg/dL 0.3 - 1 .2 mg/dL [facility] Calcium [Mass/Vol] 9.2 mg/dL 8.6 - 10. 4 mg/dL [facility] Chloride [Moles/Vol] 101 mmol/L 98 - 10 7 mmol/L [facility] CO2 [Moles/Vol] 22 mmol/L 20 - 31 mmol/L [facility] Creatinine [Mass/Vol] 0.54 mg/dL 0.50 - 0.90 mg/dL [facility] GFR/1.73 sq M.predicted MDRD (S/P/Bld) [Vol rate/Area] - PINF [facility] Comment on above: These results are [...] [Mass/Vol] 88 mg/dL 70 - 99 mg/dL [facility] Interpretation and review of laboratory results Abnormal [facility] Potassium [Moles/Vol] 4.3 mmol/L 3.7 - 5.3 mmol/L [facility] [employer] Protein [Mass/Vol] 8.1 g/dL 6.4 - 8.3 g/dL [facility] Sodium [Moles/Vol] 136 mmol/L 135 - 144 mmol/L [facility] Urea nitrogen [Mass/Vol] 11 mg/dL 6 - 20 mg/dL [facility] [email or web address] Urea nitrogen/Creatinine [Mass ratio] 20 mg/mg 9 - 20 [facility] [employer] [facility] Lipid Panelon 10-03-2022 Cholesterol [Mass/Vol] 172 mg/dL NINF - 200 mg/dL [facility] Comment on above: Cholesterol Guidelines: <200 Desirable 200-240 Borderline >240 Undesirable Cholesterol in HDL [Mass/Vol] 36 mg/dL Low 40 - PINF mg/dL [facility] Comment on above: HDL Guidelines: <40 Undesirable 40-59 Borderline >59 Desirable Cholesterol in LDL [Mass/Vol] 79 mg/dL 0 - 130 mg/dL [facility] Comment on above: LDL Guidelines: <100 Desirable 100-129 Near to/above Desirable 130-159 Borderline >159 Undesirable Direct (measured) LDL and calculated LDL are not interchangeable tests. Cholesterol.total/Ch olesterol in HDL [Mass ratio] 4.8 {ratio} NINF - 5 [facility] [employer] Interpretation and review of laboratory results Abnormal [facility] Triglyceride [Mass/Vol] 285 mg/dL High NINF - 150 mg/dL [facility] [employer] Comment on above: Triglyceride Guidelines: <150 Desirable 150-199 Borderline 200-499 High >499 Very high Based on AHA Guidelines for fasting triglyceride, December 2011. [facility] T3, Freeon 10-03-2022 Free T3 [Mass/Vol] 3.76 pg/mL 2.02 - 4. 43 pg/mL [facility] TSH With Reflex [id number] TSH Qn 1.66 m[IU]/L [facility] TSH w/reflex to FT4on 2022 Thyroid Stim. Horm. 1.66 uIU/mL Normal 0.30-5.00 [facility] Comment on above: Performed By: #### T SHX #### [facility] [address] [place] [address] [employer] Machine Tender: Hemant Murphy MD PAP ACOG PANEL 2: 21 to 29on 12-20-2021 . . Normal [facility] Comment on above: Performed By: #### 4 [id number] #### [facility] [address] [place] [address] Dr. Sachin Pereira Age Gdln ACOG Testing - [facility] Comment on above: Performed By: #### 4 [id number] #### [facility] [address] [place] [address] Dr. Sachin Pereira DIAGNOSIS: Comment [facility] Comment on above: Result Comment: NEGA TIVE FOR INTRAEPITHELIAL LESION OR MALIGNANCY. Performed By: #### 4 [id number] #### [facility] [address] [place] [address] Dr. Sachin Pereira Methodology: Comment [facility] Comment on above: Result Comment: This liquid based ThinPrep(R) pap test was screened with the use of an image guided system. Performed By: #### 4 [id number] #### [facility] [address] [place] [address] Dr. Sachin Pereira Note: Comment [facility] Comment on above: Result Comment: The Pap smear is a screening test designed to aid in the detection of premalignant and malignant conditions of the uterine cervix. It is not a diagnostic procedure and should not be used as the sole means of detecting cervical cancer. Both false-positive and false-negative reports do occur. . Performed By: #### [id number] #### [facility] [address] [place] [address] Dr. Sachin Pereira Performed by: Comment Normal [facility] Comment on above: Result Comment: Collette Holliday, Manager Floral (AS[facility]) Performed By: #### 4 [id number] #### [facility] [address] [place] [address] Dr. Sachin Pereira Reflex Criteria: Comment Normal [facility] Comment on above: Result Comment: The HPV DNA reflex criteria were not met with this specimen result therefore, no HPV testing was performed. . Performed By: #### 4 [id number] #### [facility] [address] [address] [address] Sachin Pereira Specimen adequacy: Comment Normal [facility] Comment on above: Result Comment: Sati sfactory for evaluation. Endocervical and/or squamous metaplastic cells (endocervical component) are present. Performed By: #### 4 [id number] #### [facility] [address] [place] [address] Dr. Sachin Pereira Vital Signs Date Time Vital Sign Value Performing Clinician Faci lity 02-20-2024 10:16-0500 Body mass index (BMI) [Ratio] 44.45 kg/m2 Jesika MARIE Work Phone: [facility] 02-20-2024 10:16-0500 Body weight 136.53 kg Jesika MARIE Work Phone: [facility] 02-20-2024 10:16-0500 Diastolic blood pressure 84 mm[Hg] Jesika MARIE Work Phone: [facility] 02-20-2024 10:16-0500 Systolic blood pressure 124 mm[Hg] Jesika Mcknight PA Work Phone: [facility] 01-23-2024 11:02-0400 Body mass index (BMI) [Ratio] 44.3 kg/m2 Gilles Regis DO Work Phone: [facility] 01-23-2024 11:02-0400 Body weight 136.08 kg Gilles Regis DO Work Phone: [facility] 01-23-2024 11:02-0400 Diastolic blood pressure 82 mm[Hg] Gilles Regis DO Work Phone: [facility] 01-23-2024 11:02-0400 Systolic blood pressure 120 mm[Hg] Gilles Regis DO Work Phone: [facility] Encounters Encounter Date Encounter Type Care Provider Facility Start: 02-26-2024 End: 02-26-2024 Clinisync Result Encounter Jesika MARIE Work Phone: [facility] External Department Unsolicited Start: 02-26-2024 End: 02-26-2024 Clinisync Result Encounter Jesika MARIE Work Phone: [facility] External Department Unsolicited Start: 02-20-2024 End: 02-20-2024 Bamboo flowsheet Jesika MARIE Work Phone: [facility] Start: 02-20-2024 End: 02-20-2024 Bamboo flowsheet Jesika MARIE Work Phone: [facility] Start: 02-20-2024 End: 02-20-2024 flow sheet Jesika MARIE Work Phone: [facility] Comment on above: Second trimester pre gnancy; 24 weeks gestation of ; Diabetes mellitus screening Start: 02-20-2024 End: 02-20-2024 ambulatory JESIKA MCKNIGHT Not Available Start: 01-23-2024 End: 01-23-2024 Bamboo flowsheet Gilles Regis DO Work Phone: [facility] Start: 01-23-2024 End: 01-23-2024 Bamboo flowsheet Gilles Regis DO Work Phone: [facility] Start: 01-23-2024 End: 01-23-2024 flow sheet Gilles Regis DO Work Phone: [facility] Comment on above: 20 weeks [...] Start: 10-03-2022 End: 10-04-2022 [facility]ulatory [place] [facility] Start: 10-03-2022 End: 10-03-2022 Subsequent hospital visit by physician Ny Michael MOVIE WRITER - NETWORK DIAGNOSTIC SUPPORT SPECIALIST Work Phone: [facility] Comment on above: Screening for hypoth yroidism; Diabetes mellitus screening; Lipid screening Start: 12-14-2021 End: 12-14-[address] GILLES STACY Facility:[facility]1 Start: 02-10-2021 ambulatory FIDENCIODIAMOND DOYLE [facility] [place] y:H1 Procedures Date Procedure Procedure Detail Performing Clinician Start: 02-26-2024 ALL CBC WITH AUTO DIFF Jesika MARIE Work Phone: Start: 02-20-2024 Urnls dip stick/tabl et rgnt non-auto w/o micrscp Jesika MARIE Work Phone: Start: 01-23-2024 Urnls dip stick/tabl et rgnt non-auto w/o micrscp Gilles Regis DO Work Phone: Start: 12-26-2023 IGP,APTIMA HPV,AGE GDLN Gilles Regis DO Work Phone: Start: 10-03-2022 End: 10-03-2022 Assay of triiodothyronine t3 free Ny Michael MOVIE WRITER - NETWORK DIAGNOSTIC SUPPORT SPECIALIST Work Phone: Start: 10-03-2022 Lipid panel Ny Michael MOVIE WRITER - NETWORK DIAGNOSTIC SUPPORT SPECIALIST Work Phone: Plan of Treatment Date Care Activity Detail Author Start: 03-19-2024 End: 03-19-2024 Patient encounter procedure 03/19/2024 10:30 AM EST Routine [facility] [address] [place] [address] Gilles Stacy DO [address] [place] [address] [facility] Start: 02-20-2024 End: 02-19-2025 CBC panel - Blood by Automated count CBC Lab Routine Diabetes mellitus screening Expected: 02/20/2024 (Approximate), Expires: 02/19/2025 [facility] Work Phone: Comment on above: Expected: 02/20/2024 (Approximate), Expires: 02/19/2025 Start: 02-20-2024 End: 02-19-2025 Measurement of glucose 1 hour after glucose challenge for glucose tolerance test Glucose tolerance, 1 hour Lab Routine Diabetes mellitus screening Expected: 02/20/2024 (Approximate), Expires: 02/19/2025 [facility] Comment on above: Expected: 02/20/2024 (Approximate), Expires: 02/19/2025 Start: 02-20-2024 End: 02-20-2024 Patient encounter procedure [facility] Comment on above: Arrived Start: 01-23-2024 End: 01-23-2024 Patient encounter procedure [facility] Comment on above: Arrived Start: 01-23-2024 End: 01-23-2024 Professional / ancillary services management 01/23/2024 10:00 AM EDT Ancillary Procedure [facility] [address] [place] [address] [facility] Start: 12-01-2023 Influenza vaccination Influenza Vacc ine (#1) [facility] Start: 10-09-2023 End: 10-09-2023 Patient encounter procedure 10/09/2023 Office Visit Primary Care Ny Michael APRN - NETWORK DIAGNOSTIC SUPPORT SPECIALIST [address] [place] [address] [facility] [place] Start: 10-02-2023 Depression Screen Depression Screen [facility] Start: 10-02-2023 DTaP/Tdap/Td vaccine (1 - Tdap) DTaP/Tdap/Td vaccine (1 - Tdap) [facility] Comment on above: Postponed from 07/16 (Patient Refused) Start: 10-02-2023 Hepatitis C screening Hepatitis C sc reen [facility] Comment on above: Postponed from 07/16 (Patient Refused) Start: 10-02-2023 HIV screening HIV screen [facility] Comment on above: Postponed from 07/16 (Patient Refused) Start: 10-02-2023 HPV vaccine (1 - 2-d ose series) HPV vaccine (1 - 2-dose series) [facility] Comment on above: Postponed from 07/16 (Patient Refused) Start: 10-30-2022 Influenza vaccination Flu vaccine (# 1) [facility] Start: 05-01-2021 COVID-19 Vaccine (2 - Booster for [place] series) COVID-19 Vaccine (2 - Booster for [place]a series) [facility] Start: 2017 Screening for malign ant neoplasm of cervix Pap smear [facility] Immunizations Immunization Date Immunization Notes Care Provider Fa cility 03-06-2021 COVID-19, J&J, (age 18y+), IM, 0.5 mL Ny Michael MOVIE WRITER - NETWORK DIAGNOSTIC SUPPORT SPECIALIST Work Phone: [facility] Payers Date Payer Category Payer Private Health Insurance [id number] 2022 Private Health Insurance [id number] 1996 Unknown [id number] 2.16.84 [id number] 1996 Unknown [id number] 2.16.84 [id number] 1996 Unknown [id number] 2.16.8 [id number] 1996 Unknown [id number] 2.16.84 [id number] 1996 Unknown [id number] 2.16.84 [id number] 1996 Unknown [id number] 2.16.84 [id number] 1996 Unknown [id number] 2.16.84 [id number] 1996 Unknown [id number] 2.16.84 [id number] 1959 Self-pay [id number] 1959 Unknown [id number] Social History Date Type Detail Facility Start: 10-01-2022 Tobacco smoking status NMIS Ex-smoker [facility] End: 05-30-2021 History of tobacco use Current smoker [facility] End: 05-30-2021 History of tobacco use Cigarette Smoker [facility] History of tobacco use Tobacco U se Types Packs/Day Years Used Date Smoking Tobacco: Former Cigarettes 0.5 5 Quit: 05/2021 E-Cigarettes Smokeless Tobacco: Never [facility] Start: 10-01-2022 Cigarettes smoked current (pack per day) - Reported 0.5 [facility] Start: 10-01-2022 Tobacco use and exposure Smokeless tobacco non-user [facility] Start: 10-01-2022 Alcohol intake Ex-drinker (finding) [facility] Start: 10-01-2022 History SDOH Physical Activity DPW 3 [facility] Start: 10-01-2022 History SDOH Physical Activity MPS 6 [facility] Start: 10-01-2022 History SDOH Financial 5 [facility] Start: 10-01-2022 History SDOH Food Worry 1 [facility] Start: 10-01-2022 History SDOH Transport Non-Med 2 [facility] Start: 10-01-2022 Alcohol Comment Socially [facility] Start: 1995 Sex Assigned At Female [facility] Tobacco smoking stat [facility] Tobacco smoking consumption unknown [facility] [...] nursing note reviewed. Exam conducted with a boiler cleaner present. Vitals: Estimated body mass index is [...] hour glucose order to have done at [facility]. Orders Placed This Encounter Procedures CBC Glucose tolerance, 1 hour POCT urinalysis dipstick manually resulted Follow Up: Patient is to return to office in 2 week for routine OB appointment. Documented by Giovana Azar MA on behalf of: CYNTHIA Parker documented in this encounter [facility] History of Present illness Narrative 01-23-2024 Suzanne [...] nursing note reviewed. Exam conducted with a boiler cleaner present. Vitals: Estimated body mass index is [...] Gilles Stacy DO documented in this encounter [facility] Healthcare Evaluation note Note Date & Type Note Facility Evaluation note Diagnosis Screening for hypothyroidism Screening for thyroid disorder Diabetes mellitus screening Screening for diabetes mellitus Lipid screening Screening for lipoid disorders documented in this encounter [facility] Evaluation note Note Date & Type Note Facility Evaluation note Diagnosis 20 weeks gestation of Second trimester state, incidental documented in this encounter [facility] Evaluation note Note Date & Type Note Facility Evaluation note Diagnosis Second trimester state, incidental 24 weeks gestation of Diabetes mellitus screening Screening for diabetes mellitus documented in this encounter [facility] Summary [...] DATE CREATED AUTHOR AUTHOR'S ORGANIZ ATION 02/23/2024 [facility] Specialists [facility] Care Teams (unrecognized sec tion and content) [employer] Relationship Specialty Start Date End Date Ny Michael, MOVIE WRITER - NETWORK DIAGNOSTIC SUPPORT SPECIALIST [address] [place] [address] PCP - General Certified Nurse Practitioner 10/01/22 [...] BE BASED ON THE PRIMARY CLINICAL RECORDS. [facility] [employer] provides no warranty or guarantee of the accuracy or completeness of information in this document.
[2024-03-12 10:24] LABS: Glucose 2 Hour 172 mg/dL (<155)
[2024-03-12 11:09] LABS: Glucose Fasting 108 mg/dL (<95)
[2024-03-12 11:13] LABS: Glucose 1 Hour 190 mg/dL (<180)
[2024-03-12 11:44] LABS: Glucose 3 Hour 121 mg/dL (<140)
== END 2024-03-12 07:48 | disposition home or self-care (01) ==
LOC: LAB 07:47
PROVIDERS: Visit Provider Obstetrics & Gynecology
DX: R73.09 Other abnormal glucose (principal)
CPT/HCPCS: 36415; 82951; 82952

== ENCOUNTER 2024-04-09 08:11 | Outpatient (OUT) | payer OTHER, SELFPAY | END 2024-04-09 12:36 | disposition home or self-care (01) | LOC: FBCO 08:13 | PROVIDERS: Visit Provider Obstetrics & Gynecology | DX: O24.410 Gestational diabetes mellitus in pregnancy, diet controlled (principal) | CPT/HCPCS: G0108 ==

== ENCOUNTER 2024-04-10 15:08 | Outpatient (OUT) | payer SELFPAY ==
--- OUTSIDE RECORDS SUMMARY | 2024-04-10 15:13 | XMS_ITS | CCD ---
Author Organization [facility] Care Team Providers Care Software Business Analyst Name Role Phone FIDENCIO ANDRES Primary Care Unavailable FIDENCIO ANDRES Attending Unavailable FIDENCIO ANDRES Admitting Unavailable REGIS, DR CAMPOVERDE Admitting Unavailable REGIS, DR CAMPOVERDE Consulting Unavailable REGIS, DR CAMPOVERDE Attending Unavailable FIDENCIO ANDRES Primary Care Unavailable Ny Allison APRN, CNP Primary Care [facility] [place] MICHAEL Referring Unavailable [place] MICHAEL Primary Care Unavailable Unavailable Primary Care Provider UnavailGILLES Jenkins Attending Unavailable GILLES STACY Attending Unavailable GILLES STACY Attending Unavailable JESIKA MCKNIGHT Attending Unavailable GILLES STACY Attending Unavailable Medications Current Medications Medication Drug Class(es) Dates Sig (Normalized) Sig (Original) aspirin 81 mg delayed release oral tablet (2 sources) Platelet Aggregation Inhibitor, Nonsteroidal Anti-inflammatory Drug take 1 tablet by mouth once daily aspirin 81 MG EC tablet Take 81 mg by mouth Daily Active Blood Glucose Monitoring Suppl (D-Care Glucometer) w/Device kit (3 sources) Start: 03-16-2024 End: 03-16-2025 Blood Glucose Monitoring Suppl (D-Care Glucometer) w/Device kit Indications: Gestational diabetes mellitus (GDM), antepartum, gestational diabetes method of control unspecified , Elevated glucose tolerance test 1 kit Daily Use four times daily to check FSBS. In the morning prior to breakfast & 1 hour after each meal for a total of 4times daily. 1 kit 03/16/2024 03/16/2025 Active isopropyl alcohol 0.7 ml/ml medicated pad (3 sources) Start: 03-16-2024 Alcohol Swabs (Alcohol Prep Pad) 70 % pads Indications: Gestational diabetes mellitus (GDM), antepartum, gestational diabetes method of control unspecified , Elevated glucose tolerance test Apply 1 Pad topically Daily Use four times daily to check FSBS. 150 each 3 03/16/2024 Active MV-Min-Fe Fum-FA-DHA ( 1 PO) (20 sources) MV-Min- Fe Fum-FA-DHA ( 1 PO) Take by mouth Active Problems Active Problems Problem Classification Problem Date Documented Date Episodic/Chronic Diabetes or abnormal glucose tolerance complicating ; childbirth; or the puerperium (2 sources) Gestational diabetes mellitus; Translations: [Gestational diabetes mellitus in , unspecified control] 03-19-2024 Episodic Immunizations and screening for infectious disease (3 sources) Encounter for screening for human papillomavirus (HPV); Translations: [Exposure to sexually transmissible disorder] Onset: 12-17-2021 12-26-2023 Episodic Other and delivery including normal (8 sources) Second trimester ; Translations: [Encounter for supervision of normal , unspecified, second trimester] 01-23-2024 Episodic Other screening for suspected conditions (not mental disorders or infectious disease) (18 sources) Encounter for screening for malignant neoplasm of cervix; Translations: [Patient encounter status] Onset: 12-14-2021 Episodic Residual codes; unclassified (2 sources) Gestation period, 20 weeks; Translations: [20 weeks gestation of ] 01-23-2024 Episodic Residual codes; unclassified (2 sources) Gestation period, 24 weeks; Translations: [24 weeks gestation of ] 02-20-2024 Episodic Residual codes; unclassified (2 sources) Gestation period, 28 weeks; Translations: [28 weeks gestation of ] 03-19-2024 Episodic Unclassified (14 sources) OB Reminders Onset: 12-26-2023 12-26-2023 Past or Other Problems Problem Classification Problem Date Documented Da te Episodic/Chronic Residual codes; unclassified (2 sources) Gestation period, 12 weeks; Translations: [12 weeks gestation of ] 11-28-2023 Episodic Results Test Name Value Interpretation Reference Range Facility Urinalysis macro (dipstick) panel (U)on 03-19-2024 Bilirubin, UA Negative Negative - 4(70) +++ mg/dL [facility] Blood, UA Negative Negative - 50 Horacio/mcL [facility] Clarity, UA Clear [facility] Color, UA Straw [facility] Glucose, UA Negative Negative - 2000(110) ++++ mg/dL [facility] Interpretation and review of laboratory results Abnormal [facility] Ketones, UA Negative Negative - 160(16) ++++ mg/dL [facility] Leukocytes, UA Trace Negative - 500+++ Nica/mcL [facility] Nitrite, UA Negative Negative - Positive [facility] pH, UA 6 5 - 9 [facility] Protein, UA Negative Negative - 2000(20) ++++ mg/dL [facility] Spec Grav, UA 1.03 1 - 1.03 [facility] Urobilinogen, UA 0.2 0.2 - 12 mg/dL [facility] GLUCOSE TOLERANCE 3 HOURon 1 05-13-2023 GLUCOSE TOLERANCE 3 HOUR High mg/dL [facility] Comment on above: GLU FAST 108H (<95) Col: 03/12/24 0757 GLU 1HR 190H (<180) Col: 03/12/24 0900 GLU 2HR 172H (<155) Col: 03/12/24 1000 GLU 3HR 121 (<140) Col: 03/12/24 1100 Interpretation and review of laboratory results Abnormal [facility] ALL CBC WITH AUTO DIFFon BASOPHILS ABSOLUTE AUTO 0.1 [facility] Basophils/100 WBC (Bld) 0.5 % 0.2 - 2.0 % [facility] Eosinophils/100 WBC (Bld) 2.4 % 0.9 - 7.0 % [facility] Erythrocyte distribution width (RBC) [Ratio] 14.7 % 11.0 - 15.0 % [facility] Hematocrit (Bld) [Volume fraction] 36.9 % 36.0 - 48.0 % [facility] e Hemoglobin (Bld) [Mass/Vol] 11.7 g/dL Low 12.0 - 16.0 g/dL [facility] IMMATURE GRANULOCYTES ABS AUTO 0.07 High [facility] Immature granulocytes/100 WBC (Bld) 0.5 % 0.0 - 0.5 % [facility] Interpretation and review of laboratory results Abnormal [facility] LYMPHOCYTES ABSOLUTE AUTO 3.3 [facility] Lymphocytes/100 WBC (Bld) 22.6 % 20.5 - 60.0 % [facility] MCH (RBC) [Entitic mass] 25.6 pg Low 26.7 - 34.0 pg [facility] MCHC (RBC) [Mass/Vol] 31.7 g/dL 29.9 - 35.2 g/dL [facility] MCV (RBC) [Entitic vol] 80.7 fL Low 81.0 - 99.0 fL [facility] MONOCYTES ABSOLUTE AUTO 1 High [facility] Monocytes/100 WBC (Bld) 6.7 % 1.7 - 12.0 % [facility] NEUTROPHILS ABSOLUTE AUTO 9.7 High [facility] Neutrophils/100 WBC (Bld) 67.3 % 43.0 - 75.0 % [facility] Platelet mean volume (Bld) [Entitic vol] 10.4 fL 9.5 - 13.5 fL [facility] # 0.3 [facility] TB PLT 339 [facility] TB RBC 4.57 [facility] TB WBC 14.4 High [facility] Urinalysis macro (dipstick) panel (U)on 02-20-2024 Bilirubin, UA Negative Negative - 4(70) +++ mg/dL [facility] Blood, UA Negative Negative - 50 Horacio/mcL [facility] Clarity, UA Clear [facility] Color, UA Yellow [facility] Glucose, UA Negative Negative - 1999(110) ++++ mg/dL [facility] Interpretation and review of laboratory results Abnormal [facility] Ketones, UA Negative Negative - 160(16) ++++ mg/dL [facility] Leukocytes, UA Trace Negative - 500+++ Nica/mcL [facility] Nitrite, UA Negative Negative - Positive [facility] pH, UA 7 5 - 9 [facility] Protein, UA Negative Negative - 1999(20) ++++ mg/dL [facility] Spec Grav, UA 1.025 1 - 1.03 [facility] Urobilinogen, UA 0.2 0.2 - 12 mg/dL [facility] Urinalysis macro (dipstick) panel (U)on 01-23-2024 Bilirubin, UA Negative Negative - 4(70) +++ mg/dL [facility] Blood, UA Negative Negative - 50 Horacio/mcL [facility] Clarity, UA Clear [facility] Color, UA Yellow [facility] Glucose, UA Negative Negative - 1999(110) ++++ mg/dL [facility] Interpretation and review of laboratory results Abnormal [facility] Ketones, UA Negative Negative - 160(16) ++++ mg/dL [facility] Leukocytes, UA Trace Negative - 500+++ Nica/mcL [facility] Nitrite, UA Negative Negative - Positive [facility] pH, UA 6.5 5 - 9 [facility] [employer] e Protein, UA Negative Negative - 2000(20) ++++ mg/dL [facility] Spec Grav, UA 1.015 1 - 1.03 [facility] care Urobilinogen, UA 0.2 0.2 - 12 mg/dL [facility] IGP,APTIMA HPV,AGE GDLNon AGE GDLN ACOG TESTING Note . [facility] Comment on above: TESTS RESULT FLAG UN ITS REF RANGE LAB Clinician Provided Cytology Information Source.............Cervix Other.............. No. of containers..01 ThinPrep Vial Age Algo ACOG Micaela... -30 04 FLAG LEGEND: L-Low Normal,H-High Normal,LL-Alert Low,HH-Alert High <-Panic Low,>-Panic High,A-Abnormal,AA-Critical Abnormal Performed at: 01 =G [facility] [address] [place] [address] Vania Cabezas MD, IGP, RFX APTIMA HPV ASCU Note . [facility] Comment on above: TESTS RESULT FLAG U NITS REF RANGE LAB DIAGNOSIS: 02 NEGATIVE FOR INTRAEPITHELIAL LESION OR MALIGNANCY. Specimen adequacy: 02 Satisfactory for evaluation. Endocervical and/or squamous metaplastic cells (endocervical component) are present. Performed by: 02 Marissa Franklin, Cloth Shrinking Machine Operator Helper ([facility]) . 02 Note: Note 02 The Pap [...] <-Panic Low,>-Panic High,A-Abnormal,AA-Critical Abnormal Performed at: [address] [facility] [address] [place] [address] Vania Cabezas MD, Performed at: = - [facility] [address] [id number] Architectural Model Maker: Vania Cabezas MD, Phone: [phone] Performed at: WB - [facility] [id number] Architectural Model Maker: Vania Cabezas MD, Phone: [phone] [facility] Urinalysis macro (dipstick) panel (U)on 12-26-2023 Bilirubin, UA Negative Negative - 4(70) +++ mg/dL [facility] Blood, UA Negative Negative - 50 Horacio/mcL [facility] Clarity, UA Clear [facility] re Color, UA Yellow [facility] e Glucose, UA Negative Negative - 1999(110) ++++ mg/dL [facility] Interpretation and review of laboratory results Normal [facility] Ketones, UA Positive Negative - 160(16) ++++ mg/dL [facility] Comment on above: trace Leukocytes, UA Positive Negative - 500+++ Nica/mcL [facility] Comment on above: small Nitrite, UA Negative Negative - Positive [facility] pH, UA 6.0 5 - 9 [facility] Protein, UA Negative Negative - 1999(20) ++++ mg/dL [facility] Spec Grav, UA 1.015 1 - 1.03 [facility] Urobilinogen, UA 0.2 0.2 - 12 mg/dL [facility] GLUCOSE 1 HOURon 12-11-2023 Glucose [Mass/Vol] 131 mg/dL High NINF - 13 0 mg/dL [facility] Interpretation and review of laboratory results Abnormal [facility] No Panel Informationon 11-28 STAPHYLOCOCCUS EPIDERMIDIS, HAEMOLYTICUS, LUGDUNENSIS, SAPROPHYTICUS (URINA 0.000 [facility] STAPHYLOCOCCUS EPIDERMIDIS, HAEMOLYTICUS, LUGDUNENSIS, SAPROPHYTICUS (URINA Not detected [facility] URINARY TRACT INFECTION (HTR X)on 11-29-2023 ACINETOBACTER BAUMANII 0.000 [facility] ACINETOBACTER BAUMANII Not detected [facility] CHRISTIAN ALBICANS, PARAPSILOSIS, TROPICALIS 0.000 [facility] CHRISTIAN ALBICANS, PARAPSILOSIS, TROPICALIS Not detected [facility] CHRISTIAN GLABRATA 0.000 [facility] Hea lthcare CHRISTIAN GLABRATA Not detected [facility] H ealthcare CHRISTIAN KRUSEI 0.000 [facility] Healt hcare CHRISTIAN KRUSEI Not detected [facility] l[facility] CITROBACTER FREUNDII 0.000 [facility] CITROBACTER FREUNDII Not detected NO [facility] ENTEROBACTER AEROGENES, CLOACAE 0.000 [facility] re ENTEROBACTER AEROGENES, CLOACAE Not detected [facility] re ENTEROCOCCUS FAECALIS, FAECIUM 0.000 [facility] ENTEROCOCCUS FAECALIS, FAECIUM Not detected [facility] ESCHERICHIA COLI 0.000 [facility] ESCHERICHIA COLI Not detected [facility] KLEBSIELLA PNEUMONIAE, OXYTOCA 0.000 [facility] are KLEBSIELLA PNEUMONIAE, OXYTOCA Not detected [facility] are MORGANELLA MORGANII 0.000 [facility] MORGANELLA MORGANII Not detected [facility] PROTEUS MIRABILIS, VULGARIS 0.000 [facility] PROTEUS MIRABILIS, VULGARIS Not detected [facility] PSEUDOMONAS AERUGINOSA 0.000 [facility] PSEUDOMONAS AERUGINOSA Not detected [facility] SERRATIA MARCESCENS 0.000 [facility] SERRATIA MARCESCENS Not detected [facility] STAPHYLOCOCCUS AUREUS 0.000 [facility] STAPHYLOCOCCUS AUREUS Not detected [facility] STREPTOCOCCUS AGALACTIAE (GROUP B STREP) 0.000 [facility] STREPTOCOCCUS AGALACTIAE (GROUP B STREP) Not detected [facility] STREPTOCOCCUS PYOGENES (GROUP A STREP) 0.000 [facility] STREPTOCOCCUS PYOGENES (GROUP A STREP) Not detected [facility] Urinalysis macro (dipstick) panel (U)on 11-28-2023 Bilirubin, UA Positive Negative - 4(70) +++ mg/dL [facility] Comment on above: small Blood, UA Negative Negative - 50 Horacio/mcL [facility] Clarity, UA Clear [facility] re Color, UA Yellow [facility] e Glucose, UA Negative Negative - 1999(110) ++++ mg/dL [facility] Interpretation and review of laboratory results Abnormal [facility] Ketones, UA Negative Negative - 160(16) ++++ mg/dL [facility] Leukocytes, UA Trace Negative - 500+++ Nica/mcL [facility] Nitrite, UA Negative Negative - Positive [facility] pH, UA 7.0 5 - 9 [facility] e Protein, UA Trace Negative - 1999(20) ++++ mg/dL [facility] Spec Grav, UA 1.025 1 - 1.03 [facility] Urobilinogen, UA 0.2 0.2 - 12 mg/dL [facility] ALL CBC WITH AUTO DIFFon BASOPHILS ABSOLUTE AUTO 0.1 [facility] Basophils/100 WBC (Bld) 0.4 % 0.2 - 2.0 % [facility] Eosinophils/100 WBC (Bld) 1.5 % 0.9 - 7.0 % [facility] Erythrocyte distribution width (RBC) [Ratio] 14.8 % 11.0 - 15.0 % [facility] Hematocrit (Bld) [Volume fraction] 39.4 % 36.0 - 48.0 % [facility] Hemoglobin (Bld) [Mass/Vol] 12.8 g/dL 12.0 - 16.0 g/dL [facility] IMMATURE GRANULOCYTES ABS AUTO 0.04 High [facility] Immature granulocytes/100 WBC (Bld) 0.3 % 0.0 - 0.5 % [facility] Interpretation and review of laboratory results Abnormal [facility] LYMPHOCYTES ABSOLUTE AUTO 3.4 [facility] Lymphocytes/100 WBC (Bld) 26.5 % 20.5 - 60.0 % [facility] MCH (RBC) [Entitic mass] 25.7 pg Low 26.7 - 34.0 pg [facility] MCHC (RBC) [Mass/Vol] 32.5 g/dL 29.9 - 35.2 g/dL [facility] MCV (RBC) [Entitic vol] 79.0 fL Low 81.0 - 99.0 fL [facility] MONOCYTES ABSOLUTE AUTO 1.0 High [facility] Monocytes/100 WBC (Bld) 7.4 % 1.7 - 12.0 % [facility] NEUTROPHILS ABSOLUTE AUTO 8.3 High [facility] Neutrophils/100 WBC (Bld) 63.9 % 43.0 - 75.0 % [facility] Platelet mean volume (Bld) [Entitic vol] 10.6 fL 9.5 - 13.5 fL [facility] are TBH EO # 0.2 [facility] TBH PLT 345 [facility] TB RBC 4.99 [facility] TB WBC 12.9 High [facility] Lipid Profileon 10-04-2022 Cholesterol [Mass/Vol] 172 mg/dL Normal <200 [facility] Comment on above: Result Comment: Cholesterol Guidelines: <200 Desirable 200-240 Borderline >240 Undesirable Performed By: #### L IPR #### [facility] [employer] [address] [place] [address] Architectural Model Maker: Erik Redding MD Cholesterol in HDL [Mass/Vol] 36 mg/dL Low >40 [facility] Comment on above: Result Comment: HDL Guidelines: <40 Undesirable 40-59 Borderline >59 Desirable Performed By: #### L IPR #### [facility] [address] [place] [address] Architectural Model Maker: Erik Redding MD Cholesterol in LDL [Mass/Vol] 79 mg/dL Normal 0-130 [facility] Comment on above: Result Comment: LDL Guidelines: <100 Desirable 100-129 Near to/above Desirable 130-159 Borderline >159 Undesirable Direct (measured) LDL and calculated LDL are not interchangeable tests. Performed By: #### L IPR #### [facility] [employer] [address] [place] [address] Architectural Model Maker: Erik Redding MD Cholesterol.total/Ch olesterol in HDL [Mass ratio] 4.8 {ratio} Normal <5 [facility] Comment on above: Performed By: #### L IPR #### [facility] [address] [place] [address] Architectural Model Maker: Erik Redding MD Triglyceride [Mass/Vol] 285 mg/dL High <150 [facility] Comment on above: Result Comment: Triglyceride Guidelines: <150 Desirable 150-199 Borderline 200-499 High >499 Very high Based on AHA Guidelines for fasting triglyceride, December 2011. Performed By: #### L IPR #### [facility] [address] [place] [address] Architectural Model Maker: Erik Redding MD T3, Freeon 10-04-2022 Free T3 [Mass/Vol] 3.76 pg/mL Normal 2.02-4.43 [facility] Comment on above: Performed By: #### F T3 #### [facility] [address] [place] [address] Architectural Model Maker: Erik Redding MD #### CMPF #### [facility] [address] [place], [place] [id number] Architectural Model Maker: Hemant Murphy MD Comp Metabol,Fastingon 10-03 Albumin [Mass/Vol] 4.6 g/dL Normal 3.5-5.2 [facility] Comment on above: Performed By: #### F T3 #### [address] [address] Architectural Model Maker: Erik Redding MD #### CMPF #### [facility] [address] [place] [address] Architectural Model Maker: Hemant Murphy MD Albumin/Glob Ratio 1.3 Normal 1.0-2.5 [facility] Comment on above: Performed By: #### F T3 #### [address] [address] Architectural Model Maker: Erik Redding MD #### CMPF #### [address] [place], [id number] Architectural Model Maker: Hemant Murphy MD Alkaline Phos 91 U/L Normal 35-104 [facility] Comment on above: Performed By: #### F T3 #### [address] [address] Architectural Model Maker: Erik Redding MD #### CMPF #### [facility] [address] [place] [id number] Architectural Model Maker: Hemant Murphy MD ALT [Catalytic activity/Vol] 39 U/L High 5-33 [facility] Comment on above: Performed By: #### F T3 #### [address] [address] Architectural Model Maker: Erik Redding MD #### CMPF #### [facility] [address] [place], [place] [phone] Architectural Model Maker: Hemant Murphy MD Anion gap [Moles/Vol] 13 mmol/L Normal 9-17 [facility] Comment on above: Performed By: #### F T3 #### [facility] [address] [place] [address] Architectural Model Maker: Erik Redding MD #### CMPF #### [facility] [address] [place] [address] Architectural Model Maker: Hemant Murphy MD AST [Catalytic activity/Vol] 34 U/L High <32 [facility] Comment on above: Performed By: #### F T3 #### [address] [address] Architectural Model Maker: Erik Redding MD #### CMPF #### [address] [place], [place] [phone] Architectural Model Maker: Hemant Murphy MD Bilirubin [Mass/Vol] 0.8 mg/dL Normal 0.3-1.2 [facility] Comment on above: Performed By: #### F T3 #### [facility] [address] [place] [address] Architectural Model Maker: Erik Redding MD #### CMPF #### [address] [place], [place] [id number] Architectural Model Maker: Hemant Murphy MD BUN/CRE Ratio 20 Normal 9-20 [facility] Comment on above: Performed By: #### F T3 #### [facility] [address] [place] [address] Architectural Model Maker: Erik Redding MD #### CMPF #### [facility] [address] [place], [place] [id number] Architectural Model Maker: Hemant Murphy MD Calcium [Mass/Vol] 9.2 mg/dL Normal 8.6-10.4 [facility] Comment on above: Performed By: #### F T3 #### [place] [address] [place] [address] Architectural Model Maker: Erik Redding MD #### CMPF #### [facility] [address] [place], [place] [phone] Architectural Model Maker: Hemant Murphy MD Chloride [Moles/Vol] 101 mmol/L Normal 98-107 [facility] Comment on above: Performed By: #### F T3 #### [address] [address] Architectural Model Maker: Erik Redding MD #### CMPF #### [facility] [address] [place] [address] Architectural Model Maker: Hemant Murphy MD CO2 [Moles/Vol] 22 mmol/L Normal 20-31 [facility] Comment on above: Performed By: #### F T3 #### [address] [address] Architectural Model Maker: Erik Redding MD #### CMPF #### [facility] [address] [place] [address] [place] [place], [place] [id number] Architectural Model Maker: Hemant Murphy MD Creatinine [Mass/Vol] 0.54 mg/dL Normal 0.50-0.90 [facility] Comment on above: Performed By: #### F T3 #### [address] [address] Architectural Model Maker: Erik Redding MD #### CMPF #### [facility] [address] [place] [address] Architectural Model Maker: Hemant Murphy MD GFR/1.73 sq M.predicted among non-blacks MDRD (S/P/Bld) [Vol rate/Area] mL/min/{1.73_m2} Normal >60 [facility] Comment on above: Result Comment: These [...] secretion. Performed By: #### F T3 #### [address] [address] Architectural Model Maker: Erik Redding MD #### CMPF #### [address] [place] [address] Architectural Model Maker: Hemant Murphy MD Glucose [Mass/Vol] 88 mg/dL Normal 70-99 [facility] Comment on above: Performed By: #### F T3 #### [address] [address] Architectural Model Maker: Erik Redding MD #### CMPF #### [address] [place] [address] Architectural Model Maker: Hemant Murphy MD Potassium [Moles/Vol] 4.3 mmol/L Normal 3.7-5.3 [facility] Comment on above: Performed By: #### F T3 #### [address] [address] Architectural Model Maker: Erik Redding MD #### CMPF #### [address] [place] [id number] Architectural Model Maker: Hemant Murphy MD Protein [Mass/Vol] 8.1 g/dL Normal 6.4-8.3 [facility] Comment on above: Performed By: #### F T3 #### [address] [address] Architectural Model Maker: Erik Redding MD #### CMPF #### [facility] [address] [place] [address] Architectural Model Maker: Hemant Murphy MD Sodium [Moles/Vol] 136 mmol/L Normal 135-144 [facility] Comment on above: Performed By: #### F T3 #### [facility] [address] [place], [place] [id number] Architectural Model Maker: Erik Redding MD #### CMPF #### [facility] [address] [place], [place] [id number] Architectural Model Maker: Hemant Murphy MD Urea nitrogen [Mass/Vol] 11 mg/dL Normal 6-20 [facility] Comment on above: Performed By: #### F T3 #### [facility] [address] [place], [place] [id number] Architectural Model Maker: Erik Redding MD #### CMPF #### [facility] [address] [place] [address] [place] [address] Architectural Model Maker: Hemant Murphy MD Comprehensive Metabolic Pane l, Fastingon 10-03-2022 Albumin [Mass/Vol] 4.6 g/dL 3.5 - 5.2 g/dL [facility] Albumin/Globulin [Mass ratio] 1.3 {ratio} 1.0 - 2.5 [facility] ALP [Catalytic activity/Vol] 91 U/L 35 - 104 U/L [facility] ALT [Catalytic activity/Vol] 39 U/L High 5 - 33 U/L [facility] Anion gap [Moles/Vol] 13 mmol/L 9 - 17 mmol/L [facility] AST [Catalytic activity/Vol] 34 U/L High NINF - 32 U/L [facility] Bilirubin [Mass/Vol] 0.8 mg/dL 0.3 - 1 .2 mg/dL [facility] Calcium [Mass/Vol] 9.2 mg/dL 8.6 - 10. 4 mg/dL [facility] Chloride [Moles/Vol] 101 mmol/L 98 - 10 7 mmol/L [facility] CO2 [Moles/Vol] 22 mmol/L 20 - 31 mmol/L [facility] Creatinine [Mass/Vol] 0.54 mg/dL 0.50 - 0.90 mg/dL [facility] GFR/1.73 sq M.predicted MDRD (S/P/Bld) [Vol rate/Area] - PINF [facility] Comment on above: These results are [...] [Mass/Vol] 88 mg/dL 70 - 99 mg/dL [facility] Interpretation and review of laboratory results Abnormal [facility] Potassium [Moles/Vol] 4.3 mmol/L 3.7 - 5.3 mmol/L [facility] Protein [Mass/Vol] 8.1 g/dL 6.4 - 8.3 g/dL [facility] Sodium [Moles/Vol] 136 mmol/L 135 - 144 mmol/L [facility] Urea nitrogen [Mass/Vol] 11 mg/dL 6 - 20 mg/dL [facility] Urea nitrogen/Creatinine [Mass ratio] 20 mg/mg 9 - 20 [facility] Lipid Panelon 10-03-2022 Cholesterol [Mass/Vol] 172 mg/dL NINF - 200 mg/dL [facility] Comment on above: Cholesterol Guidelines: <200 Desirable 200-240 Borderline >240 Undesirable Cholesterol in HDL [Mass/Vol] 36 mg/dL Low 40 - PINF mg/dL [facility] Comment on above: HDL Guidelines: <40 Undesirable 40-59 Borderline >59 Desirable Cholesterol in LDL [Mass/Vol] 79 mg/dL 0 - 130 mg/dL [facility] Comment on above: LDL Guidelines: <100 Desirable 100-129 Near to/above Desirable 130-159 Borderline >159 Undesirable Direct (measured) LDL and calculated LDL are not interchangeable tests. Cholesterol.total/Ch olesterol in HDL [Mass ratio] 4.8 {ratio} NINF - 5 [facility] Interpretation and review of laboratory results Abnormal [facility] Triglyceride [Mass/Vol] 285 mg/dL High NINF - 150 mg/dL [facility] Comment on above: Triglyceride Guidelines: <150 Desirable 150-199 Borderline 200-499 High >499 Very high Based on AHA Guidelines for fasting triglyceride, December 2011. [facility] T3, Freeon 10-03-2022 Free T3 [Mass/Vol] 3.76 pg/mL 2.02 - 4. 43 pg/mL [facility] TSH With Reflex Ft4on 2022 TSH Qn 1.66 m[IU]/L [facility] TSH w/reflex to FT4on 2022 Thyroid Stim. Horm. 1.66 uIU/mL Normal 0.30-5.00 [facility] Comment on above: Performed By: #### T SHX #### [facility] [address] [place] [address] Architectural Model Maker: Hemant Murphy MD PAP ACOG PANEL 2: 21 to 29on 12-20-2021 . . Normal [facility] Comment on above: Performed By: #### [id number] #### [facility] [address] [address] [address] Sachin Pereira Age Gdln ACOG Testing - Normal [facility] Comment on above: Performed By: #### [id number] #### [facility] [address] [address] [address] Sachin Pereira DIAGNOSIS: Comment Normal [facility] Comment on above: Result Comment: NEGA TIVE FOR INTRAEPITHELIAL LESION OR MALIGNANCY. Performed By: #### [id number] #### [facility] [address] [address] [address] Sachin Pereira Methodology: Comment Normal [facility] Comment on above: Result Comment: This liquid based ThinPrep(R) pap test was screened with the use of an image guided system. Performed By: #### [id number] #### [facility] [address] [place] [address] Dr. Sachin Pereira Note: Comment Normal [facility] Comment on above: Result Comment: The Pap smear is a screening test designed to aid in the detection of premalignant and malignant conditions of the uterine cervix. It is not a diagnostic procedure and should not be used as the sole means of detecting cervical cancer. Both false-positive and false-negative reports do occur. . Performed By: #### [id number] #### [facility] [address] [place] [address] Dr. Sachin Pereira Performed by: Comment Normal [facility] Comment on above: Result Comment: Collette Holliday, Cloth Shrinking Machine Operator Helper (ASCP) Performed By: #### [id number] #### [facility] [address] [place] [address] Dr. Sachin Pereira Reflex Criteria: Comment Normal [facility] Comment on above: Result Comment: The HPV DNA reflex criteria were not met with this specimen result therefore, no HPV testing was performed. . Performed By: #### 4 [id number] #### [facility] [address] [place] [address] Dr. Sachin Pereira Specimen adequacy: Comment Normal [facility] Comment on above: Result Comment: Sati sfactory for evaluation. Endocervical and/or squamous metaplastic cells (endocervical component) are present. Performed By: #### [id number] #### [facility] [address] [place] [address] Dr. Sachin Pereira Vital Signs Date Time Vital Sign Value Performing Clinician Faci lity 03-19-2024 11:03-0500 Body mass index (BMI) [Ratio] 46.04 kg/m2 [employer] Work Phone: [facility] 03-19-2024 11:03-0500 Body weight 141.43 kg [employer] Work Phone: [facility] 03-19-2024 11:03-0500 Diastolic blood pressure 90 mm[Hg] [employer] Work Phone: [facility] 03-19-2024 11:03-0500 Systolic blood pressure 148 mm[Hg] Gilles Regis DO Work Phone: [facility] 02-20-2024 10:16-0500 Body mass index (BMI) [Ratio] 44.45 kg/m2 Jesika MARIE Work Phone: [facility] 02-20-2024 10:16-0500 Body weight 136.53 kg Jesika Mcknight PA Work Phone: [facility] 02-20-2024 10:16-0500 Diastolic blood pressure 84 mm[Hg] Jesika Mcknight PA Work Phone: [facility] 02-20-2024 10:16-0500 Systolic blood pressure 124 mm[Hg] Jesika Mcknight PA Work Phone: [facility] 01-23-2024 11:02-0400 Body mass index (BMI) [Ratio] 44.3 kg/m2 Gilles Regis DO Work Phone: [facility] 01-23-2024 11:02-0400 Body weight 136.08 kg Gilles Regis DO Work Phone: [facility] 01-23-2024 11:02-0400 Diastolic blood pressure 82 mm[Hg] Gilles Regis DO Work Phone: [facility] 01-23-2024 11:02-0400 Systolic blood pressure 120 mm[Hg] Gilles Regis DO Work Phone: [facility] 12-26-2023 09:31-0400 Body mass index (BMI) [Ratio] 44.01 kg/m2 Gilles Regis DO Work Phone: [facility] 12-26-2023 09:31-0400 Body weight 135.17 kg Gilles Regis DO Work Phone: [facility] 12-26-2023 09:31-0400 Diastolic blood pressure 72 mm[Hg] Gilles Regis DO Work Phone: [facility] 12-26-2023 09:31-0400 Systolic blood pressure 120 mm[Hg] Gilles Regis DO Work Phone: [facility] 11-28-2023 08:56-0400 Body mass index (BMI) [Ratio] 44.08 kg/m2 Gilles Regis DO Work Phone: [facility] 11-28-2023 08:56-0400 Body weight 135.38 kg Gilles Regis DO Work Phone: [facility] 11-28-2023 08:56-0400 Diastolic blood pressure 70 mm[Hg] Gilles Regis DO Work Phone: [facility] 11-28-2023 08:56-0400 Systolic blood pressure 120 mm[Hg] Gilles Regis DO Work Phone: [facility] Encounters Encounter Date Encounter Type Care Provider Facility Start: 03-19-2024 End: 03-19-2024 Bamboo flowsheet Gilles Regis DO Work Phone: [facility] Start: 03-19-2024 End: 03-19-2024 Bamboo flowsheet Gilles Regis DO Work Phone: [facility] Start: 03-19-2024 End: 03-19-2024 flow sheet Gilles Regis DO Work Phone: [facility] Comment on above: 28 weeks gestation o f ; Third trimester ; Gestational diabetes mellitus (GDM), antepartum, gestational diabetes method of control unspecified Start: 03-19-2024 End: 03-19-2024 ambulatory GILLES REGIS Not Available Start: 03-12-2024 End: 03-12-2024 Clinisync Result Encounter Gilles Regis DO Work Phone: [facility] External Department Unsolicited Start: 03-12-2024 End: 03-12-2024 Clinisync Result Encounter Gilles Regis DO Work Phone: [facility] External Department Unsolicited Start: 02-26-2024 End: 02-26-2024 Clinisync Result Encounter Jesika MARIE Work Phone: [facility] External Department Unsolicited Start: 02-26-2024 End: 02-26-2024 Clinisync Result Encounter Jesika MARIE Work Phone: [facility] External Department Unsolicited Start: 02-20-2024 End: 02-20-2024 Bamboo flowsheet Jesika MARIE Work Phone: [facility] Start: 02-20-2024 End: 02-20-2024 Bamboo flowsheet Jesika Mcknight PA Work Phone: [facility] Start: 02-20-2024 End: 02-20-2024 flow sheet Jesika MARIE Work Phone: [facility] Comment on above: Second trimester pre gnancy; 24 weeks gestation of ; Diabetes mellitus screening Start: 02-20-2024 End: 02-20-2024 ambulatory JESIKA MCKNIGHT Not Available Start: 01-23-2024 End: 01-23-2024 Bamboo flowsheet Gilles Regis DO Work Phone: [facility] Start: 01-23-2024 End: 01-23-2024 Bamboo flowsheet Gilles Regis DO Work Phone: [facility] Start: 01-23-2024 End: 01-23-2024 flow sheet Gilles Ergis DO Work Phone: [facility] Comment on above: 20 weeks gestation o f ; Second trimester Start: 01-23-2024 End: 01-23-2024 ambulatory G[facility]IS Not Available Start: 12-26-2023 End: 12-26-2023 Bamboo flowsheet Gilles Regis DO Work Phone: [facility] Start: 12-26-2023 End: 01-02-2024 Clinisync Result Encounter Gilles Regis DO Work Phone: [facility] External Department Unsolicited Start: 12-26-2023 End: 01-02-2024 Clinisync Result Encounter Gilles Regis DO Work Phone: [facility] External Department Unsolicited Start: 12-26-2023 End: 12-26-2023 Patient encounter procedure Gilles Regis DO Work Phone: [facility] Start: 12-26-2023 End: 12-26-2023 Periodic preventive med est patient 18-39 yrs Gilles Regis DO Work Phone: [facility] Comment on above: Second trimester pre gnancy; Well woman exam with routine gynecological exam; Exposure to STD; Need for maternal serum alpha-protein (MSAFP) screening; Screening, , for anatomic survey Start: 12-26-2023 End: 12-26-2023 ambulatory G[facility]IS Not Available Start: 12-11-2023 End: 12-11-2023 Clinisync Result Encounter Gilles Regis DO Work Phone: [facility] External Department Unsolicited Start: 12-11-2023 End: 12-11-2023 Clinisync Result Encounter Gilles Regis DO Work Phone: [facility] External Department Unsolicited Start: 11-28-2023 End: 11-28-2023 Bamboo flowsheet Gilles Regis DO Work Phone: [facility] Start: 11-28-2023 End: 11-29-2023 Bamboo flowsheet Gilles Regis DO Work Phone: [facility] Start: 11-28-2023 End: 11-29-2023 External Result Encounter Gilles Regis DO Work Phone: [facility] External Department Unsolicited Start: 11-28-2023 End: 11-28-2023 flow sheet Gilles Regis DO Work Phone: [facility] Comment on above: 12 weeks gestation o f ; Diabetes mellitus screening Start: 11-28-2023 End: 11-28-2023 ambulatory GILLES REGIS Not Available Start: 11-22-2023 End: 11-22-2023 Clinisync Result Encounter Gilles Regis DO Work Phone: [facility] External Department Unsolicited Start: 11-22-2023 End: 11-22-2023 Clinisync Result Encounter Gilles Regis DO Work Phone: [facility] External Department Unsolicited Start: 11-08-2023 End: 11-08-2023 ambulatory GILLES DANIELO Not Available Start: 10-03-2022 End: 10-04-2022 ambulatory [place] Cast[facility] Start: 10-03-2022 End: 10-03-2022 Subsequent hospital visit by physician Ny Michael [employer] Work Phone: [facility] Comment on above: Screening for hypoth yroidism; Diabetes mellitus screening; Lipid screening Start: 12-14-2021 End: 12-14-[address] GILLES STACY Facility:[facility] Start: 02-10-2021 ambulatory FIDENCIO DOYLE DMITRY [place] y:[facility] Procedures Date Procedure Procedure Detail Performing Clinician Start: 03-19-2024 Urnls dip stick/tabl et rgnt non-auto w/o micrscp Gilles Regis DO Work Phone: Start: 03-12-2024 GLUCOSE TOLERANCE 3 HOUR Gilles Regis DO Work Phone: Start: 02-26-2024 ALL CBC WITH AUTO DIFF Jesika MARIE Work Phone: Start: 02-20-2024 Urnls dip stick/tabl et rgnt non-auto w/o micrscp Jesika MARIE Work Phone: Start: 01-23-2024 Urnls dip stick/tabl et rgnt non-auto w/o micrscp Gilles Regis DO Work Phone: Start: 12-26-2023 Urnls dip stick/tabl et rgnt non-auto w/o micrscp Gilles Reigs DO Work Phone: Start: 12-26-2023 IGP,APTIMA HPV,AGE GDLN Gilles Regis DO Work Phone: Start: 12-11-2023 GLUCOSE 1 HOUR Gilles Fa zio DO Work Phone: Start: 11-28-2023 URINARY TRACT INFECT ION (HTRX) Gilles Stacy DO Work Phone: Start: 11-28-2023 Urnls dip stick/tabl et rgnt non-auto w/o micrscp Gilles Danielo DO Work Phone: Start: 11-22-2023 ALL CBC WITH AUTO DIFF Gilles Danielo DO Work Phone: Start: 10-03-2022 End: 10-03-2022 Assay of triiodothyronine t3 free Ny Causye Stephania [employer] Work Phone: Start: 10-03-2022 Lipid panel Ny Padilla Michael [employer] Work Phone: Plan of Treatment Date Care Activity Detail Author Start: 04-09-2024 End: 04-09-2024 Patient encounter procedure 04/09/2024 11:20 AM EST Routine [facility] [address] [place] [address] Jesika Mcknight PA [address] [place] [address] [facility] Start: 04-09-2024 End: 04-09-2024 Professional / ancillary services management 04/09/2024 10:30 AM EST Ancillary Procedure [facility] [address] [place] [address] [facility] Start: 03-19-2024 End: 03-19-2025 US biophysical profile w non stress test US biophysical profile w non stress test Imaging Routine Gestational diabetes mellitus (GDM), antepartum, gestational diabetes method of control unspecified Expected: 03/19/2024 (Approximate), Expires: 03/19/2025 [facility] Work Phone: Comment on above: Expected: 03/19/2024 (Approximate), Expires: 03/19/2025 Start: 03-19-2024 End: 03-19-2025 US for US OB SCAN FOR GROWTH Imaging Routine Gestational diabetes mellitus (GDM), antepartum, gestational diabetes method of control unspecified Expected: 03/19/2024 (Approximate), Expires: 03/19/2025 [facility] Comment on above: Expected: 03/19/2024 (Approximate), Expires: 03/19/2025 Start: 03-19-2024 End: 03-19-2024 Patient encounter procedure [facility] Comment on above: Arrived Start: 02-20-2024 End: 02-19-2025 CBC panel - Blood by Automated count CBC Lab Routine Diabetes mellitus screening Expected: 02/20/2024 (Approximate), Expires: 02/19/2025 [facility] Work Phone: Comment on above: Expected: 02/20/2024 (Approximate), Expires: 02/19/2025 Start: 02-20-2024 End: 02-19-2025 Measurement of glucose 1 hour after glucose challenge for glucose tolerance test Glucose tolerance, 1 hour Lab Routine Diabetes mellitus screening Expected: 02/20/2024 (Approximate), Expires: 02/19/2025 [facility] Comment on above: Expected: 02/20/2024 (Approximate), Expires: 02/19/2025 Start: 02-20-2024 End: 02-20-2024 Patient encounter procedure [facility] Comment on above: Arrived Start: 01-23-2024 End: 01-23-2024 Patient encounter procedure [facility] Comment on above: Arrived Start: 01-23-2024 End: 01-23-2024 Professional / ancillary services management 01/23/2024 10:00 AM EDT Ancillary Procedure [facility] [address] [id number] [facility] Start: 12-26-2023 End: 01-25-2024 Alpha fetoprotein, maternal Alpha fetoprotein, maternal Lab Routine Need for maternal serum alpha-protein (MSAFP) screening Expected: 12/26/2023 (Approximate), Expires: 01/25/2024 [facility] Comment on above: Expected: 12/26/2023 (Approximate), Expires: 01/25/2024 Start: 12-26-2023 End: 12-25-2024 US for US OB ANATOMY SINGLE W US OB CERVICAL LENGTH Imaging Routine Screening, , for anatomic survey Expected: 12/26/2023 (Approximate), Expires: 12/25/2024 [facility] Comment on above: Expected: 12/26/2023 (Approximate), Expires: 12/25/2024 Start: 12-26-2023 End: 12-26-2023 Patient encounter procedure [facility] Comment on above: Arrived Start: 12-01-2023 Influenza vaccination Influenza Vacc ine (#1) [facility] Start: 11-28-2023 End: 11-27-2024 Measurement of glucose 1 hour after glucose challenge for glucose tolerance test Glucose tolerance, 1 hour Lab Routine Diabetes mellitus screening Expected: 11/28/2023 (Approximate), Expires: 11/27/2024 [facility] Work Phone: Comment on above: Expected: 11/28/2023 (Approximate), Expires: 11/27/2024 Start: 11-28-2023 End: 11-28-2023 Patient encounter procedure [facility] Comment on above: Arrived Start: 10-09-2023 End: 10-09-2023 Patient encounter procedure 10/09/2023 Office Visit Primary Care Ny Michael, TILE P[employer] - [employer] AGENT [address] [place] [address] [facility] Start: 10-02-2023 Depression Screen Depression Screen [facility] [employer] Start: 10-02-2023 DTaP/Tdap/Td vaccine (1 - Tdap) DTaP/Tdap/Td vaccine (1 - Tdap) [facility] [employer] Comment on above: Postponed from 07/16 (Patient Refused) Start: 10-02-2023 Hepatitis C screening Hepatitis C sc reen [facility] [employer] Comment on above: Postponed from 07/16 (Patient Refused) Start: 10-02-2023 HIV screening [facility] above[facility] Postponed from 07/16 (Patient Refused) Start: 10-02-2023 HPV vaccine (1 - 2-d ose series) HPV vaccine (1 - 2-dose series) [facility] Comment on above: Postponed from 07/16 (Patient Refused) Start: 10-30-2022 Influenza vaccination Flu vaccine (# 1) [facility] Start: 05-01-2021 COVID-19 Vaccine (2 - Booster for Kinga series) COVID-19 Vaccine (2 - Booster for Kinga series) [facility] Start: 2017 Screening for malign ant neoplasm of cervix Pap smear [facility] CHLAMYDIA TRACHOMATI S (GENITO/STI) CHLAMYDIA TRACHOMATIS (GENITO/STI) Lab Routine Exposure to STD Ordered: 12/26/2023 [facility] Comment on above: Ordered: 12/26/2023 Cytology Cervical or vaginal smear or scraping study Pap Smear Pathology and Cytology Routine Well woman exam with routine gynecological exam Ordered: 12/26/2023 [facility] Comment on above: Ordered: 12/26/2023 Neisseria gonorrhoea e DNA [Presence] in Unspecified specimen by SHANNA with probe detection Neisseria gonorrhea DNA probe, direct Lab Routine Exposure to STD Ordered: 12/26/2023 [facility] Comment on above: Ordered: 12/26/2023 SURESWAB(R) ADVANCED VAGINITIS PLUS, TMA SURESWAB(R) ADVANCED VAGINITIS PLUS, TMA Pathology and Cytology Routine Exposure to STD Ordered: 12/26/2023 [facility] Work Phone: Comment on above: Ordered: 12/26/2023 Immunizations Immunization Date Immunization Notes Care Provider Chano bowen 03-06-2021 COVID-19, J&J, (age 18y+), IM, 0.5 mL Ny Michael [employer] Work Phone: [facility] Payers Date Payer Category Payer Private Health Insurance [id number] 2022 Private Health Insurance [id number] 1996 Unknown [id number] 2.16.84 [id number] 1996 Unknown [id number] 2.16.84 [id number] 1996 Unknown [id number] 2.16.8 [id number] 1996 Unknown [id number] 2.16.84 [id number] 1996 Unknown [id number] 2.16.84 [id number] 1996 Unknown [id number] 2.16.84 [id number] 1996 Unknown [id number] 2.16.84 [id number] 1996 Unknown [id number] 2.16.84 [id number] 1996 Unknown [id number] 2.16.84 [id number] 1959 Self-pay [id number] 1959 Unknown [id number] Social History Date Type Detail Facility Start: 10-01-2022 Tobacco smoking status [facility] Ex-smoker [employer] End: 05-30-2021 History of tobacco use Current smoker [employer] End: 05-30-2021 History of tobacco use Cigarette Smoker [employer] History of tobacco use Tobacco U se Types Packs/Day Years Used Date Smoking Tobacco: Former Cigarettes 0.5 5 Quit: 05/2021 E-Cigarettes Smokeless Tobacco: Never [employer] Start: 10-01-2022 Cigarettes smoked current (pack per day) - Reported 0.5 [employer] Start: 10-01-2022 Tobacco use and exposure Smokeless tobacco non-user [employer] Start: 10-01-2022 Alcohol intake Ex-drinker (finding) [employer] Start: 10-01-2022 History SDOH Physical Activity DPW 3 [employer] Start: 10-01-2022 History SDOH Physical Activity MPS 6 [employer] Start: 10-01-2022 History SDOH Financial 5 [employer] Start: 10-01-2022 History SDOH Food Worry 1 [facility] [facility] Start: 10-01-2022 History SDOH Transport Non-Med 2 [facility] [employer] Start: 10-01-2022 Alcohol Comment Socially [employer] Start: 1995 Sex Assigned At Female [facility] [employer] [facility] Start: 09-17-2023 [facility] Start: 12-11-2022 Gender identity Identifies as female gender (finding) [facility] Start: 12-11-2022 Sexual orientation Heterosexual (finding) [facility] Medical Equipment Procedure Code Equipment Code Equipment Origin al Text Equipment Identifier Dates 1 strip by In Vi tro route Daily Use in the morning prior to breakfast, 1 hour after each meal for a total of 4times daily. [id number] Start: 03-16-2024 End: 04-15-2024 1 each by In Vit ro route Daily Use to check FSBS four times daily [id number] Start: 03-16-2024 End: 04-15-2024 Goals Date Patient Goal Desired Activity /State Personal health goal Clinical Notes 11-28-2023 to 03-19-2024 CYNTHIA Parker - 03/19/2024 10:30 AM CYNTHIA Cooper - 02/20/2024 9:50 AM ESTSryley Angela LPN - 01/23/2024 11:10 AM EDTSryley Angela LPN - 12/26/2023 9:10 AM EDT Note Date & Type Note Facility 03-19-2024 History of Presen t illness Narrative Reason for Appointment: Patient ID: Yu Vallecillo is a 28 y.o. female who presents for No chief complaint on file. Patient presents today for Return OB appointment. MEDICATIONS Current Outpatient Medications Medication Instructions Alcohol Swabs (Alcohol Prep Pad) 70 % pads 1 Pad, Topical, Daily, Use four times daily to check FSBS. aspirin 81 mg, Oral, Daily Blood Glucose Monitoring Suppl (D-Care Glucometer) w/Device kit 1 kit, Does not apply, Daily, Use four times daily to check FSBS. In the morning prior to breakfast & 1 hour after each meal for a total of 4times daily. Glucose Blood (Blood Glucose Test) strip 1 strip, In Vitro, Daily, Use in the morning prior to breakfast, 1 hour after each meal for a total of 4times daily. Lancets Ultra Thin misc 1 each, In Vitro, Daily, Use to check FSBS four times daily MV-Min-Fe Fum-FA-DHA ( 1 PO) Take by [...] SYSTEMS Review of Systems: Review of Systems Constitutional: Negative. HENT: Negative. Eyes: Negative. Respiratory: Negative. Cardiovascular: Negative. Gastrointestinal: Negative. Genitourinary: Negative. Musculoskeletal: Negative. Skin: Negative. Neurological: Negative. All other systems reviewed and are negative. Hematological: Negative. Endocrine: Negative. Allergic/Immunologic: Negative. OBJECTIVE Objective: Physical Exam Constitutional: Appearance: Normal appearance. She is normal weight. HENT: Head: Normocephalic. Cardiovascular: Rate and Rhythm: Normal rate. Pulses: Normal pulses. Pulmonary: Effort: Pulmonary effort is normal. Breath sounds: Normal breath sounds. Abdominal: Palpations: Abdomen is soft. Musculoskeletal: General: Normal range of motion. Neurological: General: No focal deficit present. Mental Status: She is alert and oriented to person, place, and time. Psychiatric: Mood and Affect: Mood normal. Behavior: Behavior normal. Thought Content: Thought content normal. Judgment: Judgment normal. Vitals and nursing note reviewed. Vitals: Estimated body mass index is 46.04 kg/m as calculated from the following: Height as of 01/01/23: 5' 9 . Weight as of this encounter: 311 lb 12.8 oz. BP: 148/90 Patient's last menstrual period was 09/03/2023. ASSESSMENT & PLAN ICD-10-CM 1. 28 weeks gestation of Z3A.28 POCT urinalysis dipstick manually resulted 2. Third trimester Z34.93 POCT urinalysis dipstick manually resulted 3. Gestational diabetes mellitus (GDM), antepartum, gestational diabetes method of control unspecified O24.419 US biophysical profile w non stress test US OB SCAN FOR GROWTH Return OB: Patient presents today for a routine obstetrics appointment. Patient is currently 28w2d . Patient states she is doing well but has complaints of being tired due to current . Patient has verbalizes frequent movement. labor precautions was discussed/given and patient was instructed to perform kick counts three times a day. Orders Placed This Encounter Procedures US biophysical profile w non stress test US OB SCAN FOR GROWTH POCT urinalysis dipstick manually resulted Follow Up: Patient is to return to office in 2 week for routine OB appointment. Documented by CYNTHIA Parker on behalf of: Gilles Stacy DO documented in this encounter [facility] 02-20-2024 History of Presen t illness Narrative [...] nursing note reviewed. Exam conducted with a website project manager present. Vitals: Estimated body mass index is [...] hour glucose order to have done at [facility]. Orders Placed This Encounter Procedures CBC Glucose tolerance, 1 hour POCT urinalysis dipstick manually resulted Follow Up: Patient is to return to office in 2 week for routine OB appointment. Documented by Giovana Azar MA on behalf of: CYNTHIA Parker documented in this encounter [facility] 01-23-2024 History of Presen t illness Narrative [...] nursing note reviewed. Exam conducted with a website project manager present. Vitals: Estimated body mass index is [...] Gilles Stacy DO documented in this encounter [facility] 12-26-2023 History of Presen t illness Narrative Reason for Appointment: Patient ID: Yu Vallecillo is a 28 y.o. female who presents for Routine Visit Patient presents today for Annual Exam. and Return OB appointment. MEDICATIONS Current Outpatient Medications Medication Instructions MV-Min-Fe Fum-FA-DHA ( 1 PO) Oral ALLERGIES No Known Allergies PROBLEMS Active Ambulatory [...] Constitutional: Appearance: Normal appearance. She is well-developed. Genitourinary: Vulva normal. Breasts: Breasts are soft. Right: Normal. Left: Normal. Cardiovascular: Rate and Rhythm: Normal rate and [...] nursing note reviewed. Exam conducted with a website project manager present. Vitals: Estimated body mass index is 44.01 kg/m as calculated from the following: Height as of 01/01/23: 5' 9 . Weight as of this encounter: 298 lb. BP: 120/72 Patient's last menstrual period was 09/03/2023. ASSESSMENT & PLAN ICD-10-CM 1. Second trimester Z34.92 POCT urinalysis dipstick manually resulted 2. Well woman exam with routine gynecological exam Z01.419 Pap Smear 3. Exposure to STD Z20.2 SURESWAB(R) ADVANCED VAGINITIS PLUS, TMA CHLAMYDIA TRACHOMATIS (GENITO/STI) Neisseria gonorrhea DNA probe, direct 4. Need for maternal serum alpha-protein (MSAFP) screening Z36.1 Alpha fetoprotein, maternal Alpha fetoprotein, maternal 5. Screening, , for anatomic survey Z36.89 US OB ANATOMY SINGLE W US OB CERVICAL LENGTH Return OB/Annual Exam: Patient presents today for an annual exam/routine obstetrics appointment. Patient is currently 16w2d . Patient is doing well and states she has no complaints. Pap/cultures was obtained without difficulty and patient was given msAFP order to have obtained. Patient voiced increase in acne. Orders Placed This Encounter Procedures US OB ANATOMY SINGLE W US OB CERVICAL LENGTH CHLAMYDIA TRACHOMATIS (GENITO/STI) Neisseria gonorrhea DNA probe, direct Alpha fetoprotein, maternal POCT urinalysis dipstick manually resulted Follow Up: Patient is to return to our office in 4 weeks for routine OB appointment Documented by Suzanne Angela LPN on behalf of: Gilles Stacy DO documented in this encounter [facility] 11-28-2023 History of Presen t illness Narrative Reason for Appointment: Patient ID: Yu Vallecillo is a 28 y.o. female who presents for Routine Visit Patient presents today for Return OB appointment. MEDICATIONS Current Outpatient Medications Medication Instructions MV-Min-Fe Fum-FA-DHA ( 1 PO) Oral ALLERGIES No Known Allergies PROBLEMS Active Ambulatory [...] nursing note reviewed. Exam conducted with a website project manager present. Vitals: Estimated body mass index is 44.08 kg/m as calculated from the following: Height as of 01/01/23: 5' 9 . Weight as of this encounter: 298 lb 7.5 oz. BP: 120/70 Patient's last menstrual period was 09/03/2023. ASSESSMENT & PLAN ICD-10-CM 1. 12 weeks gestation of Z3A.12 POCT urinalysis dipstick manually resulted New OB: Patient presents today for 1st time obstetrics appointment with provider. Patient is currently 12w2d . Patients history has been reviewed in great detail including any potential risks. Patient stated she currently has no complaints. Expectations throughout regarding labs, ultrasounds, and appointments have been discussed with the patient in detail. It was reiterated that the patient is to drink 6-8 glasses of water a day, eat 6 small meals a day, do not consume raw or undercooked meat, and stay away from [facility]. Patient has been consulted regarding any further do's and don'ts of . Patient voiced understanding and all questions and concerns were answered. Gave patient order to have early 1 hr gtt done. Advised patient to start taking an 81mg Aspirin daily. Patient to return to clinic in 4 weeks for routine OB/Annual appointment. Orders Placed This Encounter Procedures Glucose tolerance, 1 hour POCT urinalysis dipstick manually resulted Follow Up: Patient is to return in 4 weeks for routine OB appointment. Documented by Suzanne Angela LPN on behalf of: Gilles Stacy DO documented in this encounter [facility] Healthcare Evaluation note Diagnosis Screening for hypothyroidism Screening for thyroid disorder Diabetes mellitus screening Screening for diabetes mellitus Lipid screening Screening for lipoid disorders documented in this encounter [facility] Diagnosis 20 weeks gestation of Second trimester state, incidental documented in this encounter [facility] HealthcareEvaluation note* Diagnosis Second trimester state, incidental 24 weeks gestation of Diabetes mellitus screening Screening for diabetes mellitus documented in this encounter [facility] HealthcareEvaluation note* Diagnosis 12 weeks gestation of Diabetes mellitus screening Screening for diabetes mellitus documented in this encounter [facility] HealthcareEvaluation note* Diagnosis Second trimester state, incidental Well woman exam with routine gynecological exam Routine gynecological examination Exposure to STD Need for maternal serum alpha-protein (MSAFP) screening Screening, , for anatomic survey Encounter for anatomic survey documented in this encounter [facility] HealthcareEvaluation note* Diagnosis 28 weeks gestation of Third trimester state, incidental Gestational diabetes mellitus (GDM), antepartum, gestational diabetes method of control unspecified documented in this encounter [facility] Healthcare Summary Purpose Family History No [...] pital DATE CREATED AUTHOR AUTHOR'S ORGANIZ ATION 03/22/2024 [facility] Care Teams (unrecognized sec tion and content) 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 [facility]. provides no warranty or guarantee of the accuracy or completeness of information in this document.
[2024-04-10 15:42] LABS: Basophils Absolute Auto 0.1 10^3/uL (0.0-0.1); Basophils Percent Auto 0.5 % (0.2-2.0); Eosinophils Absolute Auto 0.2 10^3/uL (0.0-0.7); Eosinophils Percent Auto 1.4 % (0.9-7.0); Hematocrit 36.2 % (36.0-48.0); Hemoglobin 11.5 g/dL (12.0-16.0); Immature Granulocytes Abs Auto 0.05 10^3/uL (0.00-0.03); Immature Granulocytes Pct Auto 0.3 % (0.0-0.5); Lymphocytes Absolute Auto 2.9 10^3/uL (1.2-3.8); Lymphocytes Percent Auto 19.5 % (20.5-60.0); Mean Corpuscular HGB Conc 31.8 g/dL (29.9-35.2); Mean Corpuscular Volume 78.7 fL (81.0-99.0); Mean Platelet Volume 11.6 fL (9.5-13.5); Monocytes Absolute Auto 1.2 10^3/uL (0.3-0.8); Monocytes Percent Auto 7.6 % (1.7-12.0); Neutrophils Absolute Auto 10.6 10^3/uL (1.4-6.5); Neutrophils Percent Auto 70.7 % (43.0-75.0); Platelet Count 320 10^3/uL (150-450); Red Cell Distribution Width 15.1 % (11.0-15.0); White Blood Count 15.1 10^3/uL (4.0-11.0)
[2024-04-10 15:49] LABS: INR 0.93; Partial Thromboplastin Time 24.6 sec (22.3-36.2); Prothrombin Time 9.9 sec (9.0-11.6)
[2024-04-10 16:25] LABS: Alanine Aminotransferase 22 U/L (14-59); Aspartate Amino Transferase 14 U/L (15-37); Estimated GFR (African America >60 (>=60 mL/min/1.73m^2); Estimated GFR (Non-African Ame >60 (>=60 mL/min/1.73m^2); Lactate Dehydrogenase 221 U/L (81-234); Uric Acid 7.1 mg/dL (2.6-6.0)
== END 2024-04-10 15:09 | disposition home or self-care (01) ==
LOC: LAB 15:09
PROVIDERS: Visit Provider Physician Assistant
DX: O13.9 Gestational [pregnancy-induced] hypertension without significant proteinuria, unspecified trimester (principal)
CPT/HCPCS: 36415; 82565; 83615; 84450; 84460; 84520; 84550; 85025; 85610; 85730

== ENCOUNTER 2024-04-13 00:42 | Outpatient (OUT) | payer OTHER, SELFPAY ==
--- OUTSIDE RECORDS SUMMARY | 2024-04-13 00:45 | XMS_ITS | CCD ---
Author Organization [facility] Care Team Providers Care Sap Director Name Role Phone FIDENCIO ANDRES Primary Care Unavailable FIDENCIO ANDRES Attending Unavailable FIDENCIO ANDRES Admitting Unavailable REGIS, DR CAMPOVERDE Admitting Unavailable REGIS, DR CAMPOVERDE Consulting Unavailable REGIS, DR CAMPOVERDE Attending Unavailable FIDENCIO ANDRES Primary Care Unavailable Ny Allison APRN, CNP Primary Care [facility] [place] MICHAEL Referring Unavailable [place] MICHAEL Primary Care Unavailable Unavailable Primary Care Provider UnavailGILLES Jenkins Attending Unavailable GILLES STACY Attending Unavailable GILLES STACY Attending Unavailable JESIKA MCKNIGHT Attending Unavailable GILLES STACY Attending Unavailable Medications Current Medications Medication Drug Class(es) Dates Sig (Normalized) Sig (Original) aspirin 81 mg delayed release oral tablet (5 sources) Platelet Aggregation Inhibitor, Nonsteroidal Anti-inflammatory Drug take 1 tablet by mouth once daily aspirin 81 MG EC tablet Take 81 mg by mouth Daily Active Blood Glucose Monitoring Suppl (D-Care Glucometer) w/Device kit (6 sources) Start: 03-16-2024 End: 03-16-2025 Blood Glucose [...] Active isopropyl alcohol 0.7 ml/ml medicated pad (6 sources) Start: 03-16-2024 Alcohol Swabs (Alcohol Prep Pad) 70 % pads Indications: Gestational diabetes mellitus (GDM), antepartum, gestational diabetes method of control unspecified , Elevated glucose tolerance test Apply 1 Pad topically Daily Use four times daily to check FSBS. 150 each 3 03/16/2024 Active labetalol hydrochloride 100 mg oral tablet (3 sources) beta-Adrenergic Darlene Start: 04-09-2024 End: 07-08-2024 take 1 tablet by mouth in the morning labetalol (Normodyne) 100 MG tablet Indications: Gestational hypertension without significant proteinuria in third trimester Take 1 tablet (100 mg) by mouth in the morning and 1 tablet (100 mg) before bedtime. 60 tablet 2 04/09/2024 07/08/2024 Active MV-Min-Fe Fum-FA-DHA ( 1 PO) (20 sources) MV-Min- Fe Fum-FA-DHA ( 1 PO) Take by mouth Active Problems Active Problems Problem Classification Problem Date Documented Date Episodic/Chronic Diabetes or abnormal glucose tolerance complicating ; childbirth; or the puerperium (2 sources) Gestational diabetes mellitus; Translations: [Gestational diabetes mellitus in , unspecified control] 03-19-2024 Episodic Hypertension complicating ; childbirth and the puerperium (4 sources) -induced hypertension; Translations: [Gestational [-induced] hypertension without significant proteinuria, unspecified trimester] 04-09-2024 Episodic Immunizations and screening for infectious disease (3 sources) Encounter for screening for human papillomavirus (HPV); Translations: [Exposure to sexually transmissible disorder] Onset: 12-17-2021 12-26-2023 Episodic Other complications of (2 sources) Gestational proteinuria; Translations: [Gestational proteinuria, third trimester] 04-09-2024 Episodic Other and delivery including normal (10 sources) Second trimester ; Translations: [Encounter for [...] [28 weeks gestation of ] 03-19-2024 Episodic Residual codes; unclassified (2 sources) Gestation period, 31 weeks; Translations: [31 weeks gestation of ] 04-09-2024 Episodic Unclassified (17 sources) OB Reminders Onset: 12-26-2023 12-26-2023 Past or Other Problems Problem Classification Problem Date Documented Da te Episodic/Chronic Residual codes; unclassified (2 sources) Gestation period, 12 weeks; Translations: [12 weeks gestation of ] 11-28-2023 Episodic Results Test Name Value Interpretation Reference Range Facility ALL CBC WITH AUTO DIFFon BASOPHILS ABSOLUTE AUTO 0.1 [facility] Basophils/100 WBC (Bld) 0.5 % 0.2 - 2.0 % [facility] Eosinophils/100 WBC (Bld) 1.4 % 0.9 - 7.0 % [facility] Erythrocyte distribution width (RBC) [Ratio] 15.1 % High 11.0 - 15.0 % [facility] Hematocrit (Bld) [Volume fraction] 36.2 % 36.0 - 48.0 % [facility] Hem[facility] (Bld) [Mass/Vol] 11.5 g/dL Low 12.0 - 16.0 g/dL [facility] IMMATURE GRANULOCYTES ABS AUTO 0.05 High [facility] Immature granulocytes/100 WBC (Bld) 0.3 % 0.0 - 0.5 % [facility] Interpretation and review of laboratory results Abnormal [facility] LYMPHOCYTES ABSOLUTE AUTO 2.9 [facility] Lymphocytes/100 WBC (Bld) 19.5 % Low 20.5 - 60.0 % [facility] MCH (RBC) [Entitic mass] 25 pg Low 26.7 - 34.0 pg [facility] MCHC (RBC) [Mass/Vol] 31.8 g/dL 29.9 - 35.2 g/dL [facility] MCV (RBC) [Entitic vol] 78.7 fL Low 81.0 - 99.0 fL [facility] MONOCYTES ABSOLUTE AUTO 1.2 High [facility] Monocytes/100 WBC (Bld) 7.6 % 1.7 - 12.0 % [facility] NEUTROPHILS ABSOLUTE AUTO 10.6 High [facility] Neutrophils/100 WBC (Bld) 70.7 % 43.0 - 75.0 % [facility] Platelet mean volume (Bld) [Entitic vol] 11.6 fL 9.5 - 13.5 fL [facility] are TBH EO # 0.2 [facility] TBH PLT 320 [facility] TB RBC 4.6 [facility] TB WBC 15.1 High [facility] Urinalysis macro (dipstick) panel (U)on 04-09-2024 Bilirubin, UA Negative Negative - 4(70) +++ mg/dL [facility] Blood, UA Negative Negative - 50 Horacio/mcL [facility] Clarity, UA Clear [facility] re Color, UA Yellow [facility] Glucose, UA Negative Negative - 1999(110) ++++ mg/dL [facility] Interpretation and review of laboratory results Abnormal [facility] Healthcare Ketones, UA Negative Negative - 160(16) ++++ mg/dL [facility] Leukocytes, UA Negative Negative - 500+++ Nica/mcL [facility] Nitrite, UA Negative Negative - Positive [facility] Healthcare pH, UA 6.5 5 - 9 [facility] Protein, UA Positive Negative - 1999(20) ++++ mg/dL [facility] Spec Grav, UA 1.03 1 - 1.03 [facility] Urobilinogen, UA 1.0 0.2 - 12 mg/dL [facility] Health[facility] e Urinalysis macro (dipstick) panel (U)on 03-19-2024 Bilirubin, UA Negative Negative - 4(70) +++ mg/dL [facility] Healthcare Blood, UA Negative Negative - 50 Horacio/mcL [facility] Clarity, UA Clear [facility] Color, UA Straw [facility] Glucose, UA Negative Negative - 1999(110) ++++ mg/dL [facility] Healthcare Interpretation and review of laboratory results Abnormal [facility] Healthcare Ketones, UA Negative Negative - 160(16) ++++ mg/dL [facility] Leukocytes, UA Trace Negative - 500+++ Nica/mcL [facility] Nitrite, UA Negative Negative - Positive [facility] pH, UA 6 5 - 9 [facility] Protein, UA Negative Negative - 1999(20) ++++ mg/dL [facility] Spec Grav, UA 1.03 1 - 1.03 [facility] Urobilinogen, UA 0.2 0.2 - 12 mg/dL [facility] [employer] GLUCOSE TOLERANCE 3 HOURon 1 05-13-2023 GLUCOSE TOLERANCE 3 HOUR High mg/dL [facility] Comment on above: GLU FAST 108H (<95) Col: 03/12/24 0757 GLU 1HR 190H (<180) Col: 03/12/24 0900 GLU 2HR 172H (<155) Col: 03/12/24 1000 GLU 3HR 121 (<140) Col: 03/12/24 1100 Interpretation and review of laboratory results Abnormal [facility] [email or web address] e ALL CBC WITH AUTO DIFFon BASOPHILS ABSOLUTE AUTO 0.1 [facility] Basophils/100 WBC (Bld) 0.5 % 0.2 - 2.0 % [facility] Eosinophils/100 WBC (Bld) 2.4 % 0.9 - 7.0 % [facility] Erythrocyte distribution width (RBC) [Ratio] 14.7 % 11.0 - 15.0 % [facility] Hematocrit (Bld) [Volume fraction] 36.9 % 36.0 - 48.0 % [facility] e Hemoglobin (Bld) [Mass/Vol] 11.7 g/dL Low 12.0 - 16.0 g/dL [facility] IMMATURE GRANULOCYTES ABS AUTO 0.07 High [facility] Immature granulocytes/100 WBC (Bld) 0.5 % 0.0 - 0.5 % [facility] Interpretation and review of laboratory results Abnormal [facility] LYMPHOCYTES ABSOLUTE AUTO 3.3 [facility] Lymphocytes/100 WBC (Bld) 22.6 % 20.5 - 60.0 % [facility] MCH (RBC) [Entitic mass] 25.6 pg Low 26.7 - 34.0 pg [facility] MCHC (RBC) [Mass/Vol] 31.7 g/dL 29.9 - 35.2 g/dL [facility] MCV (RBC) [Entitic vol] 80.7 fL Low 81.0 - 99.0 fL [facility] MONOCYTES ABSOLUTE AUTO 1 High [facility] Monocytes/100 WBC (Bld) 6.7 % 1.7 - 12.0 % [facility] NEUTROPHILS ABSOLUTE AUTO 9.7 High [facility] Neutrophils/100 WBC (Bld) 67.3 % 43.0 - 75.0 % [facility] Platelet mean volume (Bld) [Entitic vol] 10.4 fL 9.5 - 13.5 fL [facility] are TBH EO # 0.3 [facility] TB PLT 339 [facility] TB RBC 4.57 [facility] TB WBC 14.4 High [facility] e Urinalysis macro (dipstick) panel (U)on 02-20-2024 Bilirubin, UA Negative Negative - 4(70) +++ mg/dL [facility] Blood, UA Negative Negative - 50 Horacio/mcL [facility] Healthcare Clarity, UA Clear [facility] re Color, UA Yellow [facility] e Glucose, UA Negative Negative - 1999(110) ++++ mg/dL [facility] Interpretation and review of laboratory results Abnormal [facility] Ketones, UA Negative Negative - 160(16) ++++ mg/dL [facility] Leukocytes, UA Trace Negative - 500+++ Nica/mcL [facility] Nitrite, UA Negative Negative - Positive [facility] pH, UA 7 5 - 9 [facility] e Protein, UA Negative Negative - 1999(20) ++++ mg/dL [facility] Spec Grav, UA 1.025 1 - 1.03 [facility] Urobilinogen, UA 0.2 0.2 - 12 mg/dL [facility] Urinalysis macro (dipstick) panel (U)on 01-23-2024 Bilirubin, UA Negative Negative - 4(70) +++ mg/dL [facility] Blood, UA Negative Negative - 50 Horacio/mcL [facility] Clarity, UA Clear [facility] re Color, UA Yellow [facility] Glucose, UA Negative Negative - 1999(110) ++++ mg/dL [facility] Interpretation and review of laboratory results Abnormal [facility] Ketones, UA Negative Negative - 160(16) ++++ mg/dL [facility] Leukocytes, UA Trace Negative - 500+++ Nica/mcL [facility] Nitrite, UA Negative Negative - Positive [facility] pH, UA 6.5 5 - 9 [facility] e Protein, UA Negative Negative - 1999(20) ++++ mg/dL [facility] Spec Grav, UA 1.015 1 - 1.03 [facility] Urobilinogen, UA 0.2 0.2 - 12 mg/dL [facility] IGP,APTIMA HPV,AGE GDLNon AGE GDLN ACOG TESTING Note . [facility] Comment on above: TESTS RESULT FLAG [facility] REF RANGE [facility] Clinician Provided Cytology Information Source.............Cervix Other.............. No. of containers..01 ThinPrep Vial Age Algo ACOG Micaela... FLAG LEGEND: L-Low Normal,H-High Normal,LL-Alert Low,HH-Alert High <-Panic Low,>-Panic High,A-Abnormal,AA-Critical Abnormal Performed at: 01 =G [facility] [id number] Vania Cabezas MD, IGP, RFX APTIMA HPV ASCU Note . [facility] Comment on above: TESTS RESULT FLAG [facility] DIAGNOSIS: 02 NEGATIVE FOR INTRAEPITHELIAL LESION OR MALIGNANCY. Specimen adequacy: 02 Satisfactory for evaluation. Endocervical and/or squamous metaplastic cells (endocervical component) are present. Performed by: 02 Marissa Franklin, Manager Icu (ASCP) . 02 Note: Note 02 The [...] High,A-Abnormal,AA-Critical Abnormal Performed at: [address] [facility] [address] [id number] Vania Cabezas MD, Performed at: =G - [facility] [address] [id number] Erp Engineer: Vania Cabezas MD, Phone: [phone] Performed at: - [facility] [id number] Erp Engineer: Vania Cabezas MD, Phone: [phone] [facility] Urinalysis macro (dipstick) panel (U)on 12-26-2023 Bilirubin, UA Negative Negative - 4(70) +++ mg/dL [facility] Blood, UA Negative Negative - 50 Horacio/mcL [facility] Clarity, UA Clear [facility] Color, UA Yellow [facility] Glucose, UA Negative Negative - 1999(110) ++++ mg/dL [facility] Interpretation and review of laboratory results Normal [facility] Ketones, UA Positive Negative - 160(16) ++++ mg/dL [facility] Comment on above: trace Leukocytes, UA Positive Negative - 500+++ Nica/mcL [facility] Comment on above: small Nitrite, UA Negative Negative - Positive [facility] pH, UA 6.0 5 - 9 [facility] Protein, UA Negative Negative - 1999(20) ++++ mg/dL [facility] Spec Grav, UA 1.015 1 - 1.03 [facility] Urobilinogen, UA 0.2 0.2 - 12 mg/dL [facility] e GLUCOSE 1 HOURon 12-11-2023 Glucose [Mass/Vol] 131 mg/dL High NINF - 13 0 mg/dL [facility] Interpretation and review of laboratory results Abnormal [facility] No Panel Informationon 11-28 STAPHYLOCOCCUS EPIDERMIDIS, HAEMOLYTICUS, LUGDUNENSIS, SAPROPHYTICUS (URINA 0.000 [facility] STAPHYLOCOCCUS EPIDERMIDIS, HAEMOLYTICUS, LUGDUNENSIS, SAPROPHYTICUS (URINA Not detected [facility] URINARY TRACT INFECTION (HTR X)on 11-29-2023 ACINETOBACTER BAUMANII 0.000 [facility] ACINETOBACTER BAUMANII Not detected [facility] CHRISTIAN ALBICANS, PARAPSILOSIS, TROPICALIS 0.000 [facility] CHRISTIAN ALBICANS, PARAPSILOSIS, TROPICALIS Not detected [facility] CHRISTIAN GLABRATA 0.000 [facility] CHRISTIAN GLABRATA Not detected [facility] CHRISTIAN KRUSEI 0.000 [facility] CHRISTIAN KRUSEI Not detected [facility] CITROBACTER FREUNDII 0.000 [facility] CITROBACTER FREUNDII Not detected NO [facility] ENTEROBACTER AEROGENES, CLOACAE 0.000 [facility] ENTEROBACTER AEROGENES, CLOACAE Not detected [facility] re ENTEROCOCCUS FAECALIS, FAECIUM 0.000 [facility] ENTEROCOCCUS FAECALIS, FAECIUM Not detected [facility] e ESCHERICHIA COLI 0.000 [facility] ESCHERICHIA COLI Not detected [facility] KLEBSIELLA PNEUMONIAE, OXYTOCA 0.000 [facility] KLEBSIELLA PNEUMONIAE, OXYTOCA Not detected [facility] MORGANELLA MORGANII 0.000 [facility] MORGANELLA MORGANII Not detected [facility] PROTEUS MIRABILIS, VULGARIS 0.000 [facility] PROTEUS MIRABILIS, VULGARIS Not detected [facility] PSEUDOMONAS AERUGINOSA 0.000 [facility] PSEUDOMONAS AERUGINOSA Not detected [facility] SERRATIA MARCESCENS 0.000 [facility] SERRATIA MARCESCENS Not detected [facility] STAPHYLOCOCCUS AUREUS 0.000 [facility] STAPHYLOCOCCUS AUREUS Not detected [facility] STREPTOCOCCUS AGALACTIAE (GROUP B STREP) 0.000 [facility] STREPTOCOCCUS AGALACTIAE (GROUP B STREP) Not detected [facility] STREPTOCOCCUS PYOGENES (GROUP A STREP) 0.000 [facility] STREPTOCOCCUS PYOGENES (GROUP A STREP) Not detected [facility] Urinalysis macro (dipstick) panel (U)on 11-28-2023 Bilirubin, UA Positive Negative - 4(70) +++ mg/dL [facility] Comment on above: small Blood, UA Negative Negative - 50 Horacio/mcL [facility] Clarity, UA Clear [facility] re Color, UA Yellow [facility] e Glucose, UA Negative Negative - 1999(110) ++++ mg/dL [facility] Interpretation and review of laboratory results Abnormal [facility] Ketones, UA Negative Negative - 160(16) ++++ mg/dL [facility] Leukocytes, UA Trace Negative - 500+++ Nica/mcL [facility] Nitrite, UA Negative Negative - Positive [facility] pH, UA 7.0 5 - 9 [facility] e Protein, UA Trace Negative - 1999(20) ++++ mg/dL [facility] Spec Grav, UA 1.025 1 - 1.03 [facility] Urobilinogen, UA 0.2 0.2 - 12 mg/dL [facility] ALL CBC WITH AUTO DIFFon BASOPHILS ABSOLUTE AUTO 0.1 [facility] Basophils/100 WBC (Bld) 0.4 % 0.2 - 2.0 % [facility] Eosinophils/100 WBC (Bld) 1.5 % 0.9 - 7.0 % [facility] Erythrocyte distribution width (RBC) [Ratio] 14.8 % 11.0 - 15.0 % [facility] Hematocrit (Bld) [Volume fraction] 39.4 % 36.0 - 48.0 % [facility] Hemoglobin (Bld) [Mass/Vol] 12.8 g/dL 12.0 - 16.0 g/dL [facility] IMMATURE GRANULOCYTES ABS AUTO 0.04 High [facility] Immature granulocytes/100 WBC (Bld) 0.3 % 0.0 - 0.5 % [facility] Interpretation and review of laboratory results Abnormal [facility] LYMPHOCYTES ABSOLUTE AUTO 3.4 [facility] Lymphocytes/100 WBC (Bld) 26.5 % 20.5 - 60.0 % [facility] MCH (RBC) [Entitic mass] 25.7 pg Low 26.7 - 34.0 pg [facility] MCHC (RBC) [Mass/Vol] 32.5 g/dL 29.9 - 35.2 g/dL [facility] MCV (RBC) [Entitic vol] 79.0 fL Low 81.0 - 99.0 fL [facility] MONOCYTES ABSOLUTE AUTO 1.0 High [facility] Monocytes/100 WBC (Bld) 7.4 % 1.7 - 12.0 % [facility] NEUTROPHILS ABSOLUTE AUTO 8.3 High [facility] Neutrophils/100 WBC (Bld) 63.9 % 43.0 - 75.0 % [facility] Platelet mean volume (Bld) [Entitic vol] 10.6 fL 9.5 - 13.5 fL [facility] are TBH EO # 0.2 [facility] TB PLT 345 [facility] TB RBC 4.99 [facility] TB WBC 12.9 High [facility] Lipid Profileon 10-04-2022 Cholesterol [Mass/Vol] 172 mg/dL Normal <200 [facility] Comment on above: Result Comment: Cholesterol Guidelines: <200 Desirable 200-240 Borderline >240 Undesirable Performed By: #### L IPR #### [facility] [place] [address] Erp Engineer: Erik Redding MD Cholesterol in HDL [Mass/Vol] 36 mg/dL Low >40 [facility] Comment on above: Result Comment: HDL Guidelines: <40 Undesirable 40-59 Borderline >59 Desirable Performed By: #### L IPR #### [address] [place] [address] Erp Engineer: Erik Redding MD Cholesterol in LDL [Mass/Vol] 79 mg/dL Normal 0-130 [facility] Comment on above: Result Comment: LDL Guidelines: <100 Desirable 100-129 Near to/above Desirable 130-159 Borderline >159 Undesirable Direct (measured) LDL and calculated LDL are not interchangeable tests. Performed By: #### L IPR #### [address] [address] Erp Engineer: Erik Redding MD Cholesterol.total/Ch olesterol in HDL [Mass ratio] 4.8 {ratio} Normal <5 [facility] Comment on above: Performed By: #### L IPR #### [address] [address] Erp Engineer: Erik Redding MD Triglyceride [Mass/Vol] 285 mg/dL High <150 [facility] Comment on above: Result Comment: Triglyceride Guidelines: <150 Desirable 150-199 Borderline 200-499 High >499 Very high Based on AHA Guidelines for fasting triglyceride, December 2011. Performed By: #### L IPR #### [address] [address] Erp Engineer: Erik Redding MD T3, Freeon 5 Free T3 [Mass/Vol] 3.76 pg/mL Normal 2.02-4.43 [facility] Comment on above: Performed By: #### F T3 #### [facility] [employer] [facility] [address] [place] [id number] Erp Engineer: Erik Redding MD #### CMPF #### [facility] [address] [place] [address] Erp Engineer: Hemant Murphy MD Comp Metabol,Fastingon 10-03 Albumin [Mass/Vol] 4.6 g/dL Normal 3.5-5.2 [facility] Comment on above: Performed By: #### F T3 #### [address] [address] Erp Engineer: Erik Redding MD #### CMPF #### [facility] [address] [place], [place] [id number] Erp Engineer: Hemant Murphy MD Albumin/Glob Ratio 1.3 Normal 1.0-2.5 [facility] Comment on above: Performed By: #### F T3 #### [id number] [place] [address] Erp Engineer: Erik Redding MD #### CMPF #### [facility] [address] [place], [place] [phone] Erp Engineer: Hemant Murphy MD Alkaline Phos 91 U/L Normal 35-104 [facility] Comment on above: Performed By: #### F T3 #### [address] [address] Erp Engineer: Erik Redding MD #### CMPF #### [address] [place], [place] [phone] Erp Engineer: Hemant Murphy MD ALT [Catalytic activity/Vol] 39 U/L High 5-33 [facility] Comment on above: Performed By: #### F T3 #### [address] [address] Erp Engineer: Erik Redding MD #### CMPF #### [facility] [address] [place] [address] [address] [place], [place] [phone] Erp Engineer: Hemant Murphy MD Anion gap [Moles/Vol] 13 mmol/L Normal 9-17 [facility] Comment on above: Performed By: #### F T3 #### [address] [address] Erp Engineer: Erik Redding MD #### CMPF #### [facility] [address] [place], [place] [phone] Erp Engineer: Hemant Murphy MD AST [Catalytic activity/Vol] 34 U/L High <32 [facility] Comment on above: Performed By: #### F T3 #### [facility] [address] [place] [address] Erp Engineer: Erik Redding MD #### CMPF #### [facility] [address] [place], [place] [phone] Erp Engineer: Hemant Murphy MD Bilirubin [Mass/Vol] 0.8 mg/dL Normal 0.3-1.2 [facility] Comment on above: Performed By: #### F T3 #### [address] [address] Erp Engineer: Erik Redding MD #### CMPF #### [address] [place] [phone] Erp Engineer: Hemant Murphy MD BUN/CRE Ratio 20 Normal 9-20 [facility] Comment on above: Performed By: #### F T3 #### [address] [address] Erp Engineer: Erik Redding MD #### CMPF #### [address] [place], [place] [phone] Erp Engineer: Hemant Murphy MD Calcium [Mass/Vol] 9.2 mg/dL Normal 8.6-10.4 [facility] Comment on above: Performed By: #### F T3 #### [address] [address] Erp Engineer: Erik Redding MD #### CMPF #### [facility] [address] [place] [address] [address] [place], [place] [phone] Erp Engineer: Hemant Murphy MD Chloride [Moles/Vol] 101 mmol/L Normal 98-107 [facility] Comment on above: Performed By: #### F T3 #### [address] [place] [address] Erp Engineer: Erik Redding MD #### CMPF #### [facility] [address] [place], [place] [phone] Erp Engineer: Hemant Murphy MD CO2 [Moles/Vol] 22 mmol/L Normal 20-31 [facility] Comment on above: Performed By: #### F T3 #### [address] [address] Erp Engineer: Erik Redding MD #### CMPF #### [facility] [address] [place], [place] [phone] Erp Engineer: Hemant Murphy MD Creatinine [Mass/Vol] 0.54 mg/dL Normal 0.50-0.90 [facility] Comment on above: Performed By: #### F T3 #### [address] [address] Erp Engineer: Erik Redding MD #### CMPF #### [facility] [address] [place], [place] [phone] Erp Engineer: Hemant Murphy MD GFR/1.73 sq M.predicted among non-blacks MDRD (S/P/Bld) [Vol rate/Area] mL/min/{1.73_m2} Normal >60 [facility] Comment on above: Result Comment: These results [...] secretion. Performed By: #### F T3 #### [address] [address] Erp Engineer: Erik Redding MD #### CMPF #### [facility] [address] [place], [place] [phone] Erp Engineer: Hemant Murphy MD Glucose [Mass/Vol] 88 mg/dL Normal 70-99 [facility] Comment on above: Performed By: #### F T3 #### [address] [address] [address] Erp Engineer: Erik Redding MD #### CMPF #### [facility] [address] [place] [address] [place] [address] Erp Engineer: Hemant Murphy MD Potassium [Moles/Vol] 4.3 mmol/L Normal 3.7-5.3 [facility] Comment on above: Performed By: #### F T3 #### [address] [address] Erp Engineer: Erik Redding MD #### CMPF #### [address] [place] [place] [address] Erp Engineer: Hemant Murphy MD Protein [Mass/Vol] 8.1 g/dL Normal 6.4-8.3 [facility] Comment on above: Performed By: #### F T3 #### [address] [address] Erp Engineer: Erik Redding MD #### CMPF #### [facility] [address] [place] [address] Dr. [place], [place] [id number] Erp Engineer: Hemant Murphy MD Sodium [Moles/Vol] 136 mmol/L Normal 135-144 [facility] Comment on above: Performed By: #### F T3 #### [address] [address] Erp Engineer: Erik Redding MD #### CMPF #### [address] [place] [address] Erp Engineer: Hemant Murphy MD Urea nitrogen [Mass/Vol] 11 mg/dL Normal 6-20 [facility] Comment on above: Performed By: #### F T3 #### [facility] [address] [place], [place] [id number] Erp Engineer: Erik Redding MD #### CMPF #### [facility] [address] [place] [address] Erp Engineer: Hemant Murphy MD Comprehensive Metabolic Pane l, Fastingon 10-03-2022 Albumin [Mass/Vol] 4.6 g/dL 3.5 - 5.2 g/dL [facility] Albumin/Globulin [Mass ratio] 1.3 {ratio} 1.0 - 2.5 [facility] ALP [Catalytic activity/Vol] 91 U/L 35 - 104 U/L [facility] ALT [Catalytic activity/Vol] 39 U/L High 5 - 33 U/L [facility] Anion gap [Moles/Vol] 13 mmol/L 9 - 17 mmol/L [facility] AST [Catalytic activity/Vol] 34 U/L High NINF - 32 U/L [facility] Bilirubin [Mass/Vol] 0.8 mg/dL 0.3 - 1 .2 mg/dL [facility] Calcium [Mass/Vol] 9.2 mg/dL 8.6 - 10. 4 mg/dL [facility] Chloride [Moles/Vol] 101 mmol/L 98 - 10 7 mmol/L [facility] CO2 [Moles/Vol] 22 mmol/L 20 - 31 mmol/L [facility] Creatinine [Mass/Vol] 0.54 mg/dL 0.50 - 0.90 mg/dL [facility] GFR/1.73 sq M.predicted MDRD (S/P/Bld) [Vol rate/Area] - PINF [facility] Comment on above: These results are not [...] 88 mg/dL 70 - 99 mg/dL [facility] Interpretation and review of laboratory results Abnormal [facility] Potassium [Moles/Vol] 4.3 mmol/L 3.7 - 5.3 mmol/L [facility] Protein [Mass/Vol] 8.1 g/dL 6.4 - 8.3 g/dL [facility] Sodium [Moles/Vol] 136 mmol/L 135 - 144 mmol/L [facility] Urea nitrogen [Mass/Vol] 11 mg/dL 6 - 20 mg/dL [facility] Urea nitrogen/Creatinine [Mass ratio] 20 mg/mg 9 - 20 [facility] Lipid Panelon 10-03-2022 Cholesterol [Mass/Vol] 172 mg/dL NINF - 200 mg/dL [facility] Comment on above: Cholesterol Guidelines: <200 Desirable 200-240 Borderline >240 Undesirable Cholesterol in HDL [Mass/Vol] 36 mg/dL Low 40 - PINF mg/dL [facility] Comment on above: HDL Guidelines: <40 Undesirable 40-59 Borderline >59 Desirable Cholesterol in LDL [Mass/Vol] 79 mg/dL 0 - 130 mg/dL [facility] Comment on above: LDL Guidelines: <100 Desirable 100-129 Near to/above Desirable 130-159 Borderline >159 Undesirable Direct (measured) LDL and calculated LDL are not interchangeable tests. Cholesterol.total/Ch olesterol in HDL [Mass ratio] 4.8 {ratio} NINF - 5 [facility] Interpretation and review of laboratory results Abnormal [facility] Triglyceride [Mass/Vol] 285 mg/dL High NINF - 150 mg/dL [facility] Comment on above: Triglyceride Guidelines: <150 Desirable 150-199 Borderline 200-499 High >499 Very high Based on AHA Guidelines for fasting triglyceride, December 2011. [facility] [employer] T3, Freeon 10-03-2022 Free T3 [Mass/Vol] 3.76 pg/mL 2.02 - 4. 43 pg/mL [facility] TSH With Reflex [id number] TSH Qn 1.66 m[IU]/L [facility] TSH w/reflex to FT4on 2022 Thyroid Stim. Horm. 1.66 uIU/mL Normal 0.30-5.00 [facility] Comment on above: Performed By: #### T SHX #### [facility] [address] [place] [address] Erp Engineer: Hemant Murphy MD PAP ACOG PANEL 2: to 12-20-2021 . . Normal [facility] Comment on above: Performed By: #### [id number] #### [facility] [address] [place] [address] Dr. Sachin Pereira Age Gdln ACOG Testing - [facility] Comment on above: Performed By: #### [id number] #### [facility] [address] [address] [address] Sachin Pereira DIAGNOSIS: Comment [facility] Comment on above: Result Comment: NEGA TIVE FOR INTRAEPITHELIAL LESION OR MALIGNANCY. Performed By: #### [id number] #### [facility] [address] [place] [address] Dr. Sachin Pereira Methodology: Comment [facility] Comment on above: Result Comment: This liquid based ThinPrep(R) pap test was screened with the use of an image guided system. Performed By: #### [id number] #### [facility] [address] [address] [address] Sachin Pereira Note: Comment [facility] Comment on above: Result Comment: The Pap smear is a screening test designed to aid in the detection of premalignant and malignant conditions of the uterine cervix. It is not a diagnostic procedure and should not be used as the sole means of detecting cervical cancer. Both false-positive and false-negative reports do occur. . Performed By: #### [id number] #### [facility] [address] [address] [address] Sachin Pereira Performed by: Comment Normal [facility] Comment on above: Result Comment: Collette Holliday, Manager Icu (ASCP) Performed By: #### [id number] #### [facility] [address] [address] [address] Sachin Pereira Reflex Criteria: Comment Normal [facility] Comment on above: Result Comment: The HPV DNA reflex criteria were not met with this specimen result therefore, no HPV testing was performed. . Performed By: #### [id number] #### [facility] [address] [address] [address] Sachin Pereira Specimen adequacy: Comment Normal [facility] Comment on above: Result Comment: Sati sfactory for evaluation. Endocervical and/or squamous metaplastic cells (endocervical component) are present. Performed By: #### 4 [id number] #### [facility] [address] [address] [address] Sachin Pereira Vital Signs Date Time Vital Sign Value Performing Clinician Carmelo douglas 04-09-2024 11:19-0500 Body mass index (BMI) [Ratio] 45.69 kg/m2 Jesika MARIE Work Phone: [facility] 04-09-2024 11:19-0500 Body weight 140.34 kg Jesika MARIE Work Phone: [facility] 04-09-2024 11:19-0500 Diastolic blood pressure 84 mm[Hg] Jesika MARIE Work Phone: [facility] 04-09-2024 11:19-0500 Systolic blood pressure 144 mm[Hg] Jesika Mcknight PA Work Phone: [facility] 03-19-2024 11:03-0500 Body mass index (BMI) [Ratio] 46.04 kg/m2 Gilles Regis DO Work Phone: [facility] 03-19-2024 11:03-0500 Body weight 141.43 kg Gilles Regis DO Work Phone: [facility] 03-19-2024 11:03-0500 Diastolic blood pressure 90 mm[Hg] Gilles Regis DO Work Phone: [facility] 03-19-2024 11:03-0500 Systolic blood pressure 148 mm[Hg] Gilles Regis DO Work Phone: [facility] 02-20-2024 10:16-0500 Body mass index (BMI) [Ratio] 44.45 kg/m2 Jesika MARIE Work Phone: [facility] 02-20-2024 10:16-0500 Body weight 136.53 kg Jesika MARIE Work Phone: [facility] 02-20-2024 10:16-0500 Diastolic blood pressure 84 mm[Hg] Jesika MARIE Work Phone: [facility] 02-20-2024 10:16-0500 Systolic blood pressure 124 mm[Hg] Jesika MARIE Work Phone: [facility] 01-23-2024 11:02-0400 Body mass index (BMI) [Ratio] 44.3 kg/m2 Gilles Regis DO Work Phone: [facility] 01-23-2024 11:02-0400 Body weight 136.08 kg Gilles Regis DO Work Phone: [facility] 01-23-2024 11:02-0400 Diastolic blood pressure 82 mm[Hg] Gilles Regis DO Work Phone: [facility] 01-23-2024 11:02-0400 Systolic blood pressure 120 mm[Hg] Gilles Regis DO Work Phone: [facility] 12-26-2023 09:31-0400 Body mass index (BMI) [Ratio] 44.01 kg/m2 Gilles Regis DO Work Phone: [facility] 12-26-2023 09:31-0400 Body weight 135.17 kg Gilles Regis DO Work Phone: [facility] 12-26-2023 09:31-0400 Diastolic blood pressure 72 mm[Hg] Gilles Regis DO Work Phone: [facility] 12-26-2023 09:31-0400 Systolic blood pressure 120 mm[Hg] Gilles Regis DO Work Phone: [facility] 11-28-2023 08:56-0400 Body mass index (BMI) [Ratio] 44.08 kg/m2 Gilles Regis DO Work Phone: [facility] 11-28-2023 08:56-0400 Body weight 135.38 kg Gilles Regis DO Work Phone: [facility] 11-28-2023 08:56-0400 Diastolic blood pressure 70 mm[Hg] Gilles Regis DO Work Phone: [facility] 11-28-2023 08:56-0400 Systolic blood pressure 120 mm[Hg] Gilles Regis DO Work Phone: [facility] Encounters Encounter Date Encounter Type Care Provider Facility Start: 04-10-2024 End: 04-10-2024 Clinisync Result Encounter Jesika MARIE Work Phone: [facility] External Department Unsolicited Start: 04-10-2024 End: 04-10-2024 Clinisync Result Encounter Jesika MARIE Work Phone: [facility] External Department Unsolicited Start: 04-09-2024 End: 04-09-2024 flow sheet Jesika MARIE Work Phone: [facility] Comment on above: Third trimester preg chanel; 31 weeks gestation of ; induced hypertension, antepartum; Gestational proteinuria in third trimester; Gestational hypertension without significant proteinuria in third trimester Start: 03-19-2024 End: 03-19-2024 Bamboo flowsheet Gilles Regis DO Work Phone: [facility] Start: 03-19-2024 End: 03-19-2024 Bamboo flowsheet Gilles Regis DO Work Phone: [facility] Start: 03-19-2024 End: 03-19-2024 flow sheet Gilles Regis DO Work Phone: [facility] Comment on above: 28 weeks gestation o f ; Third trimester ; Gestational diabetes mellitus (GDM), antepartum, gestational diabetes method of control unspecified Start: 03-19-2024 End: 03-19-2024 ambulatory GILLES REGIS Not Available Start: 03-12-2024 End: 03-12-2024 Clinisync Result Encounter Gilles Regis DO Work Phone: [facility] External Department Unsolicited Start: 03-12-2024 End: 03-12-2024 [...] encounter procedure Gilles Regis DO Work Phone: [facility] Start: 12-26-2023 End: 12-26-2023 Periodic preventive [...] Start: 11-28-2023 End: 11-29-2023 Bamboo flowsheet Gilles Regsi DO Work Phone: [facility] Start: 11-28-2023 End: 11-29-2023 External Result Encounter Gilles Regis DO Work Phone: [facility] External Department Unsolicited Start: 11-28-2023 End: 11-28-2023 flow sheet Gilles Regis DO Work Phone: [facility] Comment on above: 12 weeks gestation o f ; Diabetes mellitus screening Start: 11-28-2023 End: 11-28-2023 ambulatory GILLES STACY Not Available Start: 11-22-2023 End: 11-22-2023 Clinisync Result Encounter Gilles Regis DO Work Phone: [facility] External Department Unsolicited Start: 11-22-2023 End: 11-22-2023 Clinisync Result Encounter Gilles Regis DO Work Phone: [facility] External Department Unsolicited Start: 11-08-2023 End: 11-08-2023 ambulatory GILLESBhargav DANIELO Not Available Start: 10-03-2022 End: 10-04-2022 [facility]ulatory [place] [facility] Start: 10-03-2022 End: 10-03-2022 Subsequent hospital visit by physician Ny Michael MEDIA ASSISTANT - TAX INVESTIGATOR Work Phone: [email or web address] Comment on above: Screening for hypoth yroidism; Diabetes mellitus screening; Lipid screening Start: 12-14-2021 End: 12-14-[address] GILLES STACY Facility:[facility] Start: 02-10-2021 ambulatory FID[place]IO [place] y:[facility] Procedures Date Procedure Procedure Detail Performing Clinician Start: 04-10-2024 ALL CBC WITH AUTO DIFF Jesika MARIE Work Phone: Start: 04-09-2024 Urnls dip stick/tabl et rgnt non-auto w/o micrscp Jesika MARIE Work Phone: Start: 03-19-2024 Urnls dip stick/tabl et rgnt [...] 11-28-2023 URINARY TRACT INFECT ION (HTRX) Gilles Regis DO Work Phone: Start: 11-28-2023 Urnls dip stick/tabl et rgnt non-auto w/o micrscp Gilles Regis DO Work Phone: Start: 11-22-2023 ALL CBC WITH AUTO DIFF Gilles Regis DO Work Phone: Start: 10-03-2022 End: 10-03-2022 Assay of triiodothyronine t3 free Ny Michael MEDIA ASSISTANT - TAX INVESTIGATOR Work Phone: Start: 10-03-2022 Lipid panel Ny Michael MEDIA ASSISTANT - TAX INVESTIGATOR Work Phone: Plan of Treatment Date Care Activity Detail Author Start: 04-23-2024 End: 04-23-2024 Patient encounter procedure 04/23/2024 8:30 AM EST Routine [facility] [address] [place] [id number] Gilles Stacy, DO [address] [place] [address] [place] [address] [facility] Start: 04-09-2024 End: 04-09-2025 Alanine aminotransferase [Enzymatic activity/volume] in Serum or Plasma ALT Lab Routine induced hypertension, antepartum Expected: 04/09/2024 (Approximate), Expires: 04/09/2025 [facility] Comment on above: Expected: 04/09/2024 (Approximate), Expires: 04/09/2025 Start: 04-09-2024 End: 04-09-2025 Aspartate aminotransferase [Enzymatic activity/volume] in Serum or Plasma AST Lab Routine induced hypertension, antepartum Expected: 04/09/2024 (Approximate), Expires: 04/09/2025 [facility] Comment on above: Expected: 04/09/2024 (Approximate), Expires: 04/09/2025 Start: 04-09-2024 End: 04-09-2025 CBC W Auto Differential panel - Blood CBC and differential Lab Routine induced hypertension, antepartum Expected: 04/09/2024 (Approximate), Expires: 04/09/2025 [facility] Comment on above: Expected: 04/09/2024 (Approximate), Expires: 04/09/2025 Start: 04-09-2024 End: 04-09-2025 Creatinine [Mass/volume] in Serum or Plasma Creatinine Lab Routine induced hypertension, antepartum Expected: 04/09/2024 (Approximate), Expires: 04/09/2025 [facility] Work Phone: Comment on above: Expected: 04/09/2024 (Approximate), Expires: 04/09/2025 Start: 04-09-2024 End: 04-09-2025 Lactate dehydrogenase [Enzymatic activity/volume] in Serum or Plasma by Lactate to pyruvate reaction Lactate dehydrogenase Lab Routine induced hypertension, antepartum Expected: 04/09/2024, Expires: 04/09/2025 [facility] Comment on above: Expected: 04/09/2024 , Expires: 04/09/2025 Start: 04-09-2024 End: 04-09-2025 Protein, urine, 24 hour [facility] Comment on above: Expected: 04/09/2024 (Approximate), Expires: 04/09/2025 Ordered: 04/09/2024 Start: 04-09-2024 End: 04-09-2025 Pt and ptt Pt and ptt Lab Routine induced hypertension, antepartum Expected: 04/09/2024, Expires: 04/09/2025 [facility] Comment on above: Expected: 04/09/2024 , Expires: 04/09/2025 Start: 04-09-2024 End: 04-09-2025 Urate [Mass/volume] in Serum or Plasma Uric acid Lab Routine induced hypertension, antepartum Expected: 04/09/2024 (Approximate), Expires: 04/09/2025 [facility] Comment on above: Expected: 04/09/2024 (Approximate), Expires: 04/09/2025 Start: 04-09-2024 End: 04-09-2025 Urea nitrogen [Mass/volume] in Serum or Plasma BUN Lab Routine induced hypertension, antepartum Expected: 04/09/2024, Expires: 04/09/2025 [facility] Comment on above: Expected: 04/09/2024 , Expires: 04/09/2025 Start: 04-09-2024 End: 04-09-2024 Patient encounter procedure 04/09/2024 11:20 AM EST Routine [facility] [address] [facility] [place] [id number] Jesika Mcknight PA [address] [place] [address] [facility] Start: 04-09-2024 End: 04-09-2024 Professional / ancillary services management 04/09/2024 10:30 AM EST Ancillary Procedure [facility] [address] [place] [phone] [facility] Start: 03-19-2024 End: 03-19-2025 US biophysical profile w non stress test US biophysical profile w non stress test Imaging Routine Gestational diabetes mellitus (GDM), antepartum, gestational diabetes method of control unspecified Expected: 03/19/2024 (Approximate), Expires: 03/19/2025 [facility] Work Phone: Comment on above: Expected: 03/19/2024 (Approximate), Expires: 03/19/2025 Start: 03-19-2024 End: 03-19-2025 US for US OB SCAN FOR GROWTH Imaging Routine Gestational diabetes mellitus (GDM), antepartum, gestational diabetes method of control unspecified Expected: 03/19/2024 (Approximate), Expires: 03/19/2025 [facility] Comment on above: Expected: 03/19/2024 (Approximate), Expires: 03/19/2025 Start: 03-19-2024 End: 03-19-2024 Patient encounter procedure [facility] Comment on above: Arrived Start: 02-20-2024 End: 02-19-2025 CBC panel - Blood by Automated count CBC Lab Routine Diabetes mellitus screening Expected: 02/20/2024 (Approximate), Expires: 02/19/2025 [facility] Work Phone: Comment on above: Expected: 02/20/2024 (Approximate), Expires: 02/19/2025 Start: 02-20-2024 End: 02-19-2025 Measurement of glucose 1 hour after glucose challenge for glucose tolerance test Glucose tolerance, 1 hour Lab Routine Diabetes mellitus screening Expected: 02/20/2024 (Approximate), Expires: 02/19/2025 [facility] Comment on above: Expected: 02/20/2024 (Approximate), Expires: 02/19/2025 Start: 02-20-2024 End: 02-20-2024 Patient encounter procedure [facility] Comment on above: Arrived Start: 01-23-2024 End: 01-23-2024 Patient encounter procedure [facility] Comment on above: Arrived Start: 01-23-2024 End: 01-23-2024 Professional / ancillary services management 01/23/2024 10:00 AM EDT Ancillary Procedure [facility] [address] [facility] [facility] [place] [id number] [facility] Start: 12-26-2023 End: 01-25-2024 Alpha fetoprotein, maternal Alpha fetoprotein, maternal Lab Routine Need for maternal serum alpha-protein (MSAFP) screening Expected: 12/26/2023 (Approximate), Expires: 01/25/2024 [facility] Comment on above: Expected: 12/26/2023 (Approximate), Expires: 01/25/2024 Start: 12-26-2023 End: 12-25-2024 US for US OB ANATOMY SINGLE W US OB CERVICAL LENGTH Imaging Routine Screening, , for anatomic survey Expected: 12/26/2023 (Approximate), Expires: 12/25/2024 [facility] Comment on above: Expected: 12/26/2023 (Approximate), Expires: 12/25/2024 Start: 12-26-2023 End: 12-26-2023 Patient encounter procedure [facility] Comment on above: Arrived Start: 12-01-2023 Influenza vaccination Influenza Vacc ine (#1) [facility] Start: 11-28-2023 End: 11-27-2024 Measurement of glucose 1 hour after glucose challenge for glucose tolerance test Glucose tolerance, 1 hour Lab Routine Diabetes mellitus screening Expected: 11/28/2023 (Approximate), Expires: 11/27/2024 [facility] Work Phone: Comment on above: Expected: 11/28/2023 (Approximate), Expires: 11/27/2024 Start: 11-28-2023 End: 11-28-2023 Patient encounter procedure [facility] Comment on above: Arrived Start: 10-09-2023 End: 10-09-2023 Patient encounter procedure 10/09/2023 Office Visit Primary Care Ny Michael, MEDIA ASSISTANT - TAX INVESTIGATOR [address] [place] [address] [facility] Start: 10-02-2023 Depression Screen Depression Screen [facility] Start: 10-02-2023 DTaP/Tdap/Td vaccine (1 - Tdap) DTaP/Tdap/Td vaccine (1 - Tdap) [facility] Comment on above: Postponed from 07/16 (Patient Refused) Start: 10-02-2023 Hepatitis C screening Hepatitis C sc reen [facility] Comment on above: Postponed from 07/16 (Patient Refused) Start: 10-02-2023 HIV screening HIV screen [facility] Comment on above: Postponed from 07/16 (Patient Refused) Start: 10-02-2023 HPV vaccine (1 - 2-d ose series) HPV vaccine (1 - 2-dose series) [facility] Comment on above: Postponed from 07/16 (Patient Refused) Start: 10-30-2022 Influenza vaccination Flu vaccine (# 1) [facility] Start: 05-01-2021 COVID-19 Vaccine (2 - Booster for Kinga series) COVID-19 Vaccine (2 - Booster for Kinga series) [facility] Start: 2017 Screening for malign ant neoplasm of cervix Pap smear [facility] CHLAMYDIA TRACHOMATI S (GENITO/STI) CHLAMYDIA TRACHOMATIS (GENITO/STI) Lab Routine Exposure to STD Ordered: 12/26/2023 [facility] Comment on above: Ordered: 12/26/2023 Cytology Cervical or vaginal smear or scraping study Pap Smear Pathology and Cytology Routine Well woman exam with routine gynecological exam Ordered: 12/26/2023 [facility] Comment on above: Ordered: 12/26/2023 Neisseria gonorrhoea e DNA [Presence] in Unspecified specimen by SHANNA with probe detection Neisseria gonorrhea DNA probe, direct Lab Routine Exposure to STD Ordered: 12/26/2023 [facility] Comment on above: Ordered: 12/26/2023 SURESWAB(R) ADVANCED VAGINITIS PLUS, TMA SURESWAB(R) ADVANCED VAGINITIS PLUS, TMA Pathology and Cytology Routine Exposure to STD Ordered: 12/26/2023 [facility] Work Phone: Comment on above: Ordered: 12/26/2023 Immunizations Immunization Date Immunization Notes Care Provider Chano bowen 03-06-2021 COVID-19, J&J, (age 18y+), IM, 0.5 mL Ny Michael MEDIA ASSISTANT - TAX INVESTIGATOR Work Phone: [facility] Payers Date Payer Category Payer Private Health Insurance [id number] 2022 Private Health Insurance [id number] 1996 Unknown [id number] 2.16.84 [id number] 1996 Unknown [id number] 2.16.84 [id number] 1996 Unknown [id number] 2.16.8 [id number] 1996 Unknown [id number] 2.16.84 [id number] 1996 Unknown [id number] 2.16.84 [id number] 1996 Unknown [id number] 2.16.84 [id number] 1996 Unknown [id number] 2.16.84 [id number] 1996 Unknown [id number] 2.16.84 [id number] 1996 Unknown [id number] 2.16.84 [id number] 1959 Self-pay [id number] 1959 Unknown [id number] Social History Date Type Detail Facility Start: 10-01-2022 Tobacco smoking status [facility] Ex-smoker [employer] End: 05-30-2021 History of tobacco use Current smoker [employer] End: 05-30-2021 History of tobacco use Cigarette Smoker [employer] History of tobacco use Tobacco U se Types Packs/Day Years Used Date Smoking Tobacco: Former Cigarettes 0.5 5 Quit: 05/2021 E-Cigarettes Smokeless Tobacco: Never [employer] Start: 10-01-2022 Cigarettes smoked current (pack per day) - Reported 0.5 [employer] Start: 10-01-2022 Tobacco use and exposure Smokeless tobacco non-user [employer] Start: 10-01-2022 Alcohol intake Ex-drinker (finding) [employer] Start: 10-01-2022 History SDOH Physical Activity DPW 3 [employer] Start: 10-01-2022 History SDOH Physical Activity MPS 6 [employer] Start: 10-01-2022 History SDOH Financial 5 [employer] Start: 10-01-2022 History SDOH Food Worry 1 [facility] Start: 10-01-2022 History SDOH Transport Non-Med 2 [employer] Start: 10-01-2022 Alcohol Comment Socially [employer] Start: 1995 Sex Assigned At Female [employer] Tobacco smoking stat [facility] Tobacco smoking consumption unknown [facility] Start: 09-17-2023 [facility] Start: 12-11-2022 Gender identity Identifies as female gender (finding) [facility] Start: 12-11-2022 Sexual orientation Heterosexual (finding) [facility] Medical Equipment Procedure Code Equipment Code Equipment Origin al Text Equipment Identifier Dates 1 strip by In Vi tro route Daily Use in the morning prior to breakfast, 1 hour after each meal for a total of 4times daily. [id number] Start: 03-16-2024 End: 04-15-2024 1 each by In Vit ro route Daily Use to check FSBS four times daily [id number] Start: 03-16-2024 End: 04-15-2024 Goals Date Patient Goal Desired Activity /State Personal health goal Clinical Notes 11-28-2023 to 04-09-2024 CYNTHIA Parker - 04/09/2024 11:20 AM CYNTHIA Cooper - 03/19/2024 10:30 AM CYNTHIA Cooper - 02/20/2024 9:50 AM Keenan Angela LPN - 01/23/2024 11:10 AM EDT Note Date & Type Note Facility 04-09-2024 History of Presen t illness Narrative Reason [...] mg, Oral, Daily Blood Glucose Monitoring Suppl ([employer] Glucometer) w/Device kit 1 kit, Does not apply, Daily, Use four times daily to check FSBS. In the morning prior to breakfast & 1 hour after each meal for a total of 4times daily. Glucose Blood (Blood Glucose Test) strip 1 strip, In Vitro, Daily, Use in the morning prior to breakfast, 1 hour after each meal for a total of 4times daily. labetalol (NORMODYNE) 100 mg, Oral, 2 times daily Lancets Ultra Thin misc 1 each, In [...] reviewed. Vitals: Estimated body mass index is 45.69 kg/m as calculated from the following: Height as of 01/01/23: 5' 9 . Weight as of this encounter: 309 lb 6.4 oz. BP: 144/84 Patient's last menstrual period was 09/03/2023. ASSESSMENT & PLAN ICD-10-CM 1. Third trimester Z34.93 Urine dip 2. 31 weeks gestation of Z3A.31 Urine dip 3. induced hypertension, antepartum O13.9 Creatinine Protein, urine, 24 hour Pt and ptt CBC and differential Uric acid Lactate dehydrogenase ALT AST BUN Creatinine Protein, urine, 24 hour Pt and ptt CBC and differential Uric acid Lactate dehydrogenase ALT AST BUN 4. Gestational proteinuria in third trimester O12.13 Protein, urine, 24 hour 5. Gestational hypertension without significant proteinuria in third trimester O13.3 labetalol (Normodyne) 100 MG tablet Return OB: Patient presents today for a routine obstetrics appointment. Patient is currently 31w2d . Patient states she is doing well but has complaints of being tired due to current . Patient has verbalizes frequent movement. labor precautions was discussed/given and patient was instructed to perform kick counts three times a day. Patient blood pressure up today, pt asymptomatic. We will start patient on labetolol 100mg bid and get labs ordered as well. Pt has small amount of protein today, pt notified to get labs completed and agrees with plan of care Orders Placed This Encounter Procedures Creatinine Protein, urine, 24 hour Pt and ptt CBC and differential Uric acid Lactate dehydrogenase ALT AST BUN Protein, urine, 24 hour Urine dip Follow Up: Patient is to return to office in 2 week for routine OB appointment. Documented by CYNTHIA Parker on behalf of: CYNTHIA Parker documented in this encounter [facility] 03-19-2024 History of Presen t illness Narrative [...] mg, Oral, Daily Blood Glucose Monitoring Suppl ([employer] Glucometer) w/Device kit 1 kit, Does not [...] Stacy DO documented in this encounter [facility] 02-20-2024 History of Presen t illness Narrative [...] nursing note reviewed. Exam conducted with a pharmaceutical specialty representative present. Vitals: Estimated body mass index is [...] hour glucose order to have done at [facility]. Orders Placed This Encounter Procedures CBC Glucose tolerance, 1 hour POCT urinalysis dipstick manually resulted Follow Up: Patient is to return to office in 2 week for routine OB appointment. Documented by Giovana Azar MA on behalf of: CYNTHIA Parker documented in this encounter [facility] 01-23-2024 History of Presen t illness Narrative [...] nursing note reviewed. Exam conducted with a pharmaceutical specialty representative present. Vitals: Estimated body mass index is [...] Stacy DO documented in this encounter [facility] 12-26-2023 History of Presen t illness Narrative [...] nursing note reviewed. Exam conducted with a pharmaceutical specialty representative present. Vitals: Estimated body mass index is [...] Stacy DO documented in this encounter [facility] 11-28-2023 History of Presen t illness Narrative [...] nursing note reviewed. Exam conducted with a pharmaceutical specialty representative present. Vitals: Estimated body mass index is [...] or undercooked meat, and stay away from [facility]. Patient has been consulted regarding any further [...] Gilles Stacy DO documented in this encounter [facility] Evaluation note Diagnosis Screening for hypothyroidism Screening for thyroid disorder Diabetes mellitus screening Screening for diabetes mellitus Lipid screening Screening for lipoid disorders [facility] Diagnosis 20 weeks gestation of Second trimester state, incidental [facility] Diagnosis Second trimester state, incidental 24 weeks gestation of Diabetes mellitus screening Screening for diabetes mellitus [facility] Diagnosis 12 weeks gestation of Diabetes mellitus screening Screening for diabetes mellitus documented in this encounter [facility]* Diagnosis Second trimester state, incidental Well woman exam with routine gynecological exam Routine gynecological examination Exposure to STD Need for maternal serum alpha-protein (MSAFP) screening Screening, , for anatomic survey Encounter for anatomic survey [facility] Diagnosis 28 weeks gestation of Third trimester state, incidental Gestational diabetes mellitus (GDM), antepartum, gestational diabetes method of control unspecified [facility] Diagnosis Third trimester state, incidental 31 weeks gestation of induced hypertension, antepartum Transient hypertension of , antepartum Gestational proteinuria in third trimester Gestational hypertension without significant proteinuria in third trimester documented in this encounter [facility] Summary Purpose Family History No [...] DATE CREATED AUTHOR AUTHOR'S ORGANIZ ATION 03/22/2024 [facility] Care Teams (unrecognized sec tion and content) Sap Director Relationship Specialty Start Date End Date Ny Michael, MIKAYLA - [employer] [address] [place] [address] PCP - General Certified Nurse Practitioner 10/01/22 [...] BE BASED ON THE PRIMARY CLINICAL RECORDS. [employer] provides no warranty or guarantee of the accuracy or completeness of information in this document.
[2024-04-13 07:08] VITALS: BP 204/86; PULSE 90
[2024-04-13 07:09] VITALS: BP 159/72; PULSE 90
[2024-04-13 07:41] VITALS: BP 134/80; PULSE 85
== END 2024-04-13 07:45 | disposition home or self-care (01) ==
LOC: FBCO 00:42 → FBC 06:58
PROVIDERS: Visit Provider Obstetrics & Gynecology
DX: O24.419 Gestational diabetes mellitus in pregnancy, unspecified control (principal)
CPT/HCPCS: 59025

== ENCOUNTER 2024-04-13 07:06 | Outpatient (REF) | payer SELFPAY ==
--- OUTSIDE RECORDS SUMMARY | 2024-04-13 07:08 | XMS_ITS | CCD ---
Author Organization [facility] Care Team Providers Care Appointment Specialist Name Role Phone FIDENCIO ANDRES Primary Care [...] WITH AUTO DIFFon BASOPHILS ABSOLUTE AUTO 0.1 [facility] Basophils/100 WBC (Bld) 0.5 % 0.2 - 2.0 % [facility] Eosinophils/100 WBC (Bld) 1.4 % 0.9 - 7.0 % [facility] Erythrocyte distribution width (RBC) [Ratio] 15.1 % High 11.0 - 15.0 % [facility] Hematocrit (Bld) [Volume fraction] 36.2 % 36.0 - 48.0 % [facility] ([facility]ld[facility] [Mass/Vol] 11.5 g/dL Low 12.0 - 16.0 g/dL [facility] IMMATURE GRANULOCYTES ABS AUTO 0.05 High [facility] Immature granulocytes/100 WBC (Bld) 0.3 % 0.0 - 0.5 % [facility] Interpretation and review of laboratory results Abnormal [facility] LYMPHOCYTES ABSOLUTE AUTO 2.9 [facility] Lymphocytes/100 WBC (Bld) 19.5 % Low 20.5 - 60.0 % [facility] MCH (RBC) [Entitic mass] 25 pg Low 26.7 - 34.0 pg [facility] MCHC (RBC) [Mass/Vol] 31.8 g/dL 29.9 - 35.2 g/dL [facility] MCV (RBC) [Entitic vol] 78.7 fL Low 81.0 - 99.0 fL [facility] MONOCYTES ABSOLUTE AUTO 1.2 High [facility] Monocytes/100 WBC (Bld) 7.6 % 1.7 - 12.0 % [facility] NEUTROPHILS ABSOLUTE AUTO 10.6 High [facility] Neutrophils/100 WBC (Bld) 70.7 % 43.0 - 75.0 % [facility] Platelet mean volume (Bld) [Entitic vol] 11.6 fL 9.5 - 13.5 fL [facility] Healthc are TBH EO # 0.2 [...] Interpretation and review of laboratory results Abnormal [facility] Healthcare Ketones, UA Negative Negative - 160(16) ++++ mg/dL [facility] Leukocytes, UA Negative Negative - 500+++ Nica/mcL [facility] Nitrite, UA Negative Negative - Positive [facility] pH, UA 6.5 5 - 9 [facility] Protein, UA Positive Negative - 1999(20) ++++ mg/dL [facility] Spec Grav, UA 1.03 1 - 1.03 [facility] Urobilinogen, UA 1.0 0.2 - 12 mg/dL [facility] Healthcar e Urinalysis macro (dipstick) panel (U)on 03-19-2024 Bilirubin, UA Negative Negative - 4(70) +++ mg/dL [facility] Healthcare Blood, UA Negative Negative - 50 Horacio/mcL [facility] Clarity, UA Clear [facility] re Color, UA Straw [facility] Glucose, UA Negative Negative - 1999(110) ++++ mg/dL [facility] Healthcare Interpretation and review of laboratory results Abnormal [facility] Ketones, UA Negative Negative - [...] Urobilinogen, UA 0.2 0.2 - 12 mg/dL [facility] GLUCOSE TOLERANCE 3 HOURon 1 05-13-2023 GLUCOSE TOLERANCE 3 HOUR High mg/dL [facility] Comment on above: GLU FAST 108H (<95) Col: 03/12/24 0757 GLU 1HR 190H (<180) Col: 03/12/24 0900 GLU 2HR 172H (<155) Col: 03/12/24 1000 GLU 3HR 121 (<140) Col: 03/12/24 1100 Interpretation and review of laboratory results Abnormal [facility] [employer] e ALL CBC WITH AUTO DIFFon BASOPHILS ABSOLUTE AUTO 0.1 [facility] Basophils/100 WBC (Bld) 0.5 % 0.2 - 2.0 % [facility] Eosinophils/100 WBC (Bld) 2.4 % 0.9 - 7.0 % [facility] Erythrocyte distribution width (RBC) [Ratio] 14.7 % 11.0 - 15.0 % [facility] Hematocrit (Bld) [Volume fraction] 36.9 % 36.0 - 48.0 % [facility] e Hemoglobin (Bld) [Mass/Vol] 11.7 g/dL Low 12.0 - 16.0 g/dL [facility] IMMATURE GRANULOCYTES ABS AUTO 0.07 High [facility] Immature granulocytes/100 WBC (Bld) 0.5 % 0.0 - 0.5 % [facility] Interpretation and review of laboratory results Abnormal [facility] LYMPHOCYTES ABSOLUTE AUTO 3.3 [facility] Lymphocytes/100 WBC (Bld) 22.6 % 20.5 - 60.0 % [facility] MCH (RBC) [Entitic mass] 25.6 pg Low 26.7 - 34.0 pg [facility] MCHC (RBC) [Mass/Vol] 31.7 g/dL 29.9 - 35.2 g/dL [facility] MCV (RBC) [Entitic vol] 80.7 fL Low 81.0 - 99.0 fL [facility] MONOCYTES ABSOLUTE AUTO 1 High [facility] Monocytes/100 WBC (Bld) 6.7 % 1.7 - 12.0 % [facility] NEUTROPHILS ABSOLUTE AUTO 9.7 High [facility] Neutrophils/100 WBC (Bld) 67.3 % 43.0 - 75.0 % [facility] Platelet mean volume (Bld) [Entitic vol] 10.4 fL 9.5 - 13.5 fL [facility] are [facility]H EO # 0.3 [facility]T 339 [facility] TB RBC 4.57 [facility] TB WBC 14.4 High [facility] e Urinalysis macro (dipstick) panel (U)on 02-20-2024 Bilirubin, UA Negative Negative - 4(70) +++ mg/dL [facility] Blood, UA Negative Negative - 50 Horacio/mcL [facility] Healthcare Clarity, UA Clear [facility] Healthca re Color, UA Yellow [facility] Health[facility] e Glucose, UA Negative Negative - 1999(110) ++++ mg/dL [facility] Interpretation and review of laboratory results Abnormal [facility] Ketones, UA Negative Negative - 160(16) ++++ mg/dL [facility] Leukocytes, UA Trace Negative - 500+++ Nica/mcL [facility] Nitrite, UA Negative Negative - Positive [facility] pH, UA 7 5 - 9 [facility] Health[facility] e Protein, UA Negative Negative - 1999(20) ++++ mg/dL [facility] Spec Grav, UA 1.025 1 - 1.03 [facility] Urobilinogen, UA 0.2 0.2 - 12 mg/dL [facility] e Urinalysis macro (dipstick) panel (U)on 01-23-2024 Bilirubin, UA Negative Negative - 4(70) +++ mg/dL [facility] Blood, UA Negative Negative - 50 Horacio/mcL [facility] Clarity, UA Clear [facility] Health[facility] re Color, UA Yellow [facility] Glucose, UA Negative Negative - 1999(110) ++++ mg/dL [facility] Interpretation and review of laboratory results Abnormal [facility] Ketones, UA Negative Negative - 160(16) ++++ mg/dL [facility] Leukocytes, UA Trace Negative - 500+++ Nica/mcL [facility] Nitrite, UA Negative Negative - Positive [facility] pH, UA 6.5 5 - 9 [facility] Health[facility] e Protein, UA Negative Negative - 1999(20) ++++ mg/dL [facility] Spec Grav, UA 1.015 1 - 1.03 [facility] Urobilinogen, UA 0.2 0.2 - 12 mg/dL [facility] IGP,APTIMA HPV,AGE GDLNon AGE GDLN ACOG TESTING Note . [facility] Comment on above: TESTS RESULT FLAG [facility] REF RANGE LAB Clinician Provided Cytology Information Source.............Cervix Other.............. No. of containers..01 ThinPrep Vial Age Algo ACOG Micaela... FLAG LEGEND: L-Low Normal,H-High Normal,LL-Alert Low,HH-Alert High <-Panic Low,>-Panic High,A-Abnormal,AA-Critical Abnormal Performed at: 01 =G [facility] [id number] Vania Cabezas MD, IGP, RFX APTIMA HPV ASCU Note . [facility] Comment on above: TESTS RESULT FLAG [facility] RE[facility] DIAGNOSIS: 02 NEGATIVE FOR INTRAEPITHELIAL LESION OR MALIGNANCY. Specimen adequacy: 02 Satisfactory for evaluation. Endocervical and/or squamous metaplastic cells (endocervical component) are present. Performed by: 02 Marissa Franklin, Glass Inspector (ASCP) . 02 Note: Note 02 The [...] Low,>-Panic High,A-Abnormal,AA-Critical Abnormal Performed at: [address] [facility] [address] [id number] Vania Cabezas MD, Performed at: =G - [facility] [address] [id number] Front Desk: Vania Cabezas MD, Phone: [phone] Performed at: - [facility] [id number] Front Desk: Vania Cabezas MD, Phone: [phone] SPATULA-ALONE CERVIX [facility] Urinalysis macro (dipstick) panel (U)on 12-26-2023 Bilirubin, UA Negative Negative - 4(70) +++ mg/dL [facility] Blood, UA Negative Negative - 50 Horacio/mcL [facility] Clarity, UA Clear [facility] Color, UA Yellow [facility] Glucose, UA Negative Negative - 1999(110) ++++ mg/dL [facility] Interpretation and review of laboratory results Normal [facility] Ketones, UA Positive Negative - 160(16) ++++ mg/dL [facility] Comment on above: trace Leukocytes, UA Positive Negative - 500+++ Nica/mcL [facility] Comment on above: small Nitrite, UA Negative Negative - Positive [facility] pH, UA 6.0 5 - 9 [facility] Protein, UA Negative Negative - 1999(20) ++++ mg/dL [facility] Spec Grav, UA 1.015 1 - 1.03 [facility] Urobilinogen, UA 0.2 0.2 - 12 mg/dL [facility] e GLUCOSE 1 HOURon 12-11-2023 Glucose [Mass/Vol] 131 mg/dL High NINF - 13 0 mg/dL [facility] Interpretation and review of laboratory results Abnormal [facility] No Panel Informationon 11-28 STAPHYLOCOCCUS EPIDERMIDIS, HAEMOLYTICUS, LUGDUNENSIS, SAPROPHYTICUS (URINA 0.000 [facility] STAPHYLOCOCCUS EPIDERMIDIS, HAEMOLYTICUS, LUGDUNENSIS, SAPROPHYTICUS (URINA Not detected [facility] URINARY TRACT INFECTION (HTR X)on 11-29-2023 ACINETOBACTER BAUMANII 0.000 [facility] ACINETOBACTER BAUMANII Not detected [facility] CHRISTIAN ALBICANS, PARAPSILOSIS, TROPICALIS 0.000 [facility] CHRISTIAN ALBICANS, PARAPSILOSIS, TROPICALIS Not detected [facility] CHRISTIAN GLABRATA 0.000 [facility] CHRISTIAN GLABRATA Not detected [facility] CHRISTIAN KRUSEI 0.000 [facility] hcare CHRISTIAN KRUSEI Not detected [facility] CITROBACTER FREUNDII 0.000 [facility] CITROBACTER FREUNDII Not detected NO [facility] ENTEROBACTER AEROGENES, CLOACAE 0.000 [facility] ENTEROBACTER AEROGENES, CLOACAE Not detected [facility] re ENTEROCOCCUS FAECALIS, FAECIUM 0.000 [facility] ENTEROCOCCUS FAECALIS, FAECIUM Not detected [facility] e ESCHERICHIA COLI 0.000 [facility] ltare ESCHERICHIA COLI Not detected [facility] KLEBSIELLA PNEUMONIAE, OXYTOCA 0.000 [facility] are KLEBSIELLA PNEUMONIAE, OXYTOCA Not detected [facility] MORGANELLA MORGANII 0.000 [facility] MORGANELLA MORGANII Not detected [facility] PROTEUS MIRABILIS, VULGARIS 0.000 [facility] PROTEUS MIRABILIS, VULGARIS Not detected [facility] PSEUDOMONAS AERUGINOSA 0.000 [facility] PSEUDOMONAS AERUGINOSA Not detected [facility] SERRATIA MARCESCENS 0.000 [facility] SERRATIA MARCESCENS Not detected [facility] STAPHYLOCOCCUS AUREUS 0.000 [facility] STAPHYLOCOCCUS AUREUS Not detected [facility] STREPTOCOCCUS AGALACTIAE (GROUP B STREP) 0.000 [facility] STREPTOCOCCUS AGALACTIAE (GROUP B STREP) Not detected [facility] STREPTOCOCCUS PYOGENES (GROUP A STREP) 0.000 [facility] STREPTOCOCCUS PYOGENES (GROUP A STREP) Not detected [facility] e Urinalysis macro (dipstick) panel (U)on 11-28-2023 Bilirubin, UA Positive Negative - 4(70) +++ mg/dL [facility] Comment on above: small Blood, UA Negative Negative - 50 Horacio/mcL [facility] Clarity, UA Clear [facility] re Color, UA Yellow [facility] e Glucose, UA Negative Negative - 1999(110) ++++ mg/dL [facility] Interpretation and review of laboratory results Abnormal [facility] Ketones, UA Negative Negative - 160(16) ++++ mg/dL [facility] Leukocytes, UA Trace Negative - 500+++ Nica/mcL [facility] Nitrite, UA Negative Negative - Positive [facility] pH, UA 7.0 5 - 9 [facility] e Protein, UA Trace Negative - 1999(20) ++++ mg/dL [facility] Spec Grav, UA 1.025 1 - 1.03 [facility] Urobilinogen, UA 0.2 0.2 - 12 mg/dL [facility] e ALL CBC WITH AUTO DIFFon BASOPHILS ABSOLUTE AUTO 0.1 [facility] Basophils/100 WBC (Bld) 0.4 % 0.2 - 2.0 % [facility] Eosinophils/100 WBC (Bld) 1.5 % 0.9 - 7.0 % [facility] Erythrocyte distribution width (RBC) [Ratio] 14.8 % 11.0 - 15.0 % [facility] Hematocrit (Bld) [Volume fraction] 39.4 % 36.0 - 48.0 % [facility] Hemoglobin (Bld) [Mass/Vol] 12.8 g/dL 12.0 - 16.0 g/dL [facility] IMMATURE GRANULOCYTES ABS AUTO 0.04 High [facility] Immature granulocytes/100 WBC (Bld) 0.3 % 0.0 - 0.5 % [facility] Interpretation and review of laboratory results Abnormal [facility] LYMPHOCYTES ABSOLUTE AUTO 3.4 [facility] Lymphocytes/100 WBC (Bld) 26.5 % 20.5 - 60.0 % [facility] MCH (RBC) [Entitic mass] 25.7 pg Low 26.7 - 34.0 pg [facility] MCHC (RBC) [Mass/Vol] 32.5 g/dL 29.9 - 35.2 g/dL [facility] MCV (RBC) [Entitic vol] 79.0 fL Low 81.0 - 99.0 fL [facility] MONOCYTES ABSOLUTE AUTO 1.0 High [facility] Monocytes/100 WBC (Bld) 7.4 % 1.7 - 12.0 % [facility] NEUTROPHILS ABSOLUTE AUTO 8.3 High [facility] Neutrophils/100 WBC (Bld) 63.9 % 43.0 - 75.0 % [facility] Platelet mean volume (Bld) [Entitic vol] 10.6 fL 9.5 - 13.5 fL [facility] Health[facility] are [facility] EO # 0.2 [facility] TB PLT 345 [facility] TB RBC 4.99 [facility] TB WBC 12.9 High [facility] Lipid Profileon 10-04-2022 Cholesterol [Mass/Vol] 172 mg/dL Normal <200 [facility] Comment on above: Result Comment: Cholesterol Guidelines: <200 Desirable 200-240 Borderline >240 Undesirable Performed By: #### L IPR #### [employer] [address] [place] [address] Front Desk: Erik Redding MD Cholesterol in HDL [Mass/Vol] 36 mg/dL Low >40 [facility] Comment on above: Result Comment: HDL Guidelines: <40 Undesirable 40-59 Borderline >59 Desirable Performed By: #### L IPR #### [employer] [address] [place] [address] Front Desk: Erik Redding MD Cholesterol in LDL [Mass/Vol] 79 mg/dL Normal 0-130 [facility] Comment on above: Result Comment: LDL Guidelines: <100 Desirable 100-129 Near to/above Desirable 130-159 Borderline >159 Undesirable Direct (measured) LDL and calculated LDL are not interchangeable tests. Performed By: #### L IPR #### [address] [address] Front Desk: Erik Redding MD Cholesterol.total/Ch olesterol in HDL [Mass ratio] 4.8 {ratio} Normal <5 [facility] Comment on above: Performed By: #### L IPR #### [address] [address] Front Desk: Erik Redding MD Triglyceride [Mass/Vol] 285 mg/dL High <150 [facility] Comment on above: Result Comment: Triglyceride Guidelines: <150 Desirable 150-199 Borderline 200-499 High >499 Very high Based on AHA Guidelines for fasting triglyceride, December 2011. Performed By: #### L IPR #### [address] [address] Front Desk: Erik Redding MD T3, Freeon 4 Free T3 [Mass/Vol] 3.76 pg/mL Normal 2.02-4.43 [facility] Comment on above: Performed By: #### F T3 #### [facility] [employer] [address] [place] [address] Front Desk: Erik Redding MD #### CMPF #### [facility] [address] [place] [address] Front Desk: Hemant Murphy MD Comp Metabol,Fastingon 10-03 Albumin [Mass/Vol] 4.6 g/dL Normal 3.5-5.2 [facility] Comment on above: Performed By: #### F T3 #### [address] [address] Front Desk: Erik Redding MD #### CMPF #### [facility] [address] [place], [place] [phone] Front Desk: Hemant Murphy MD Albumin/Glob Ratio 1.3 Normal 1.0-2.5 [facility] Comment on above: Performed By: #### F T3 #### [address] [place] [place] [address] Front Desk: Erik Redding MD #### CMPF #### [facility] [address] [place], [place] [phone] Front Desk: Hemant Murphy MD Alkaline Phos 91 U/L Normal 35-104 [facility] Comment on above: Performed By: #### F T3 #### [address] [address] Front Desk: Erik Redding MD #### CMPF #### [address] [place], [place] [phone] Front Desk: Hemant Murphy MD ALT [Catalytic activity/Vol] 39 U/L High 5-33 [facility] Comment on above: Performed By: #### F T3 #### [address] [address] Front Desk: Erik Redding MD #### CMPF #### [facility] [address] [place] [address] [address] [place], [place] [phone] Front Desk: Hemant Murphy MD Anion gap [Moles/Vol] 13 mmol/L Normal 9-17 [facility] Comment on above: Performed By: #### F T3 #### [address] [address] Front Desk: Erik Redding MD #### CMPF #### [facility] [address] [place], [place] [phone] Front Desk: Hemant Murphy MD AST [Catalytic activity/Vol] 34 U/L High <32 [facility] Comment on above: Performed By: #### F T3 #### [facility] [address] [place] [address] Front Desk: Erik Redding MD #### CMPF #### [facility] [address] [place], [place] [phone] Front Desk: Hemant Murphy MD Bilirubin [Mass/Vol] 0.8 mg/dL Normal 0.3-1.2 [facility] Comment on above: Performed By: #### F T3 #### [address] [address] Front Desk: Erik Redding MD #### CMPF #### [address] [place] [phone] Front Desk: Hemant Murphy MD BUN/CRE Ratio 20 Normal 9-20 [facility] Comment on above: Performed By: #### F T3 #### [address] [address] Front Desk: Erik Redding MD #### CMPF #### [address] [place], [place] 1950[address] Front Desk: Hemant Murphy MD Calcium [Mass/Vol] 9.2 mg/dL Normal 8.6-10.4 [facility] Comment on above: Performed By: #### F T3 #### [address] [address] Front Desk: Erik Redding MD #### CMPF #### [facility] [address] [place] [address] [address] [place], [place] [phone] Front Desk: Hemant Murphy MD Chloride [Moles/Vol] 101 mmol/L Normal 98-107 [facility] Comment on above: Performed By: #### F T3 #### [address] [place] [address] Front Desk: Erik Redding MD #### CMPF #### [facility] [address] [place], [place] [phone] Front Desk: Hemant Murphy MD CO2 [Moles/Vol] 22 mmol/L Normal 20-31 [facility] Comment on above: Performed By: #### F T3 #### [address] [address] Front Desk: Erik Redding MD #### CMPF #### [facility] [address] [place], [place] [phone] Front Desk: Hemant Murphy MD Creatinine [Mass/Vol] 0.54 mg/dL Normal 0.50-0.90 [facility] Comment on above: Performed By: #### F T3 #### [address] [address] Front Desk: Erik Redding MD #### CMPF #### [facility] [address] [place] [place], [place] [phone] Front Desk: Hemant Murphy MD GFR/1.73 sq M.predicted among non-blacks MDRD (S/P/Bld) [Vol rate/Area] mL/min/{1.73_m2} Normal >60 [facility] Comment on above: Result Comment: These [...] secretion. Performed By: #### F T3 #### [address] [address] Front Desk: Erik Redding MD #### CMPF #### [facility] [address] [place], [place] [address] Front Desk: Hemant Murphy MD Glucose [Mass/Vol] 88 mg/dL Normal 70-99 [facility] Comment on above: Performed By: #### F T3 #### [address] [address] Front Desk: Erik Redding MD #### CMPF #### [facility] [address] [place] [address] [place] [address] Front Desk: Hemant Murphy MD Potassium [Moles/Vol] 4.3 mmol/L Normal 3.7-5.3 [facility] Comment on above: Performed By: #### F T3 #### [address] [address] Front Desk: Erik Redding MD #### CMPF #### [address] [place] [address] Front Desk: Hemant Murphy MD Protein [Mass/Vol] 8.1 g/dL Normal 6.4-8.3 [facility] Comment on above: Performed By: #### F T3 #### [address] [address] Front Desk: Erik Redding MD #### CMPF #### [facility] [address] [place] [address] [address] [place], [place] [phone] Front Desk: Hemant Murphy MD Sodium [Moles/Vol] 136 mmol/L Normal 135-144 [facility] Comment on above: Performed By: #### F T3 #### [address] [address] Front Desk: Erik Redding MD #### CMPF #### [address] [place] [address] Front Desk: Hemant Murphy MD Urea nitrogen [Mass/Vol] 11 mg/dL Normal 6-20 [facility] Comment on above: Performed By: #### F T3 #### [facility] [address] [place], [place] [phone] Front Desk: Erik Redding MD #### CMPF #### [facility] [address] [place] [address] Front Desk: Hemant Murphy MD Comprehensive Metabolic Pane l, Fastingon 10-03-2022 Albumin [Mass/Vol] 4.6 g/dL 3.5 - 5.2 g/dL [facility] Albumin/Globulin [Mass ratio] 1.3 {ratio} 1.0 - 2.5 [facility] ALP [Catalytic activity/Vol] 91 U/L 35 - 104 U/L [facility] ALT [Catalytic activity/Vol] 39 U/L High 5 - 33 U/L [facility] Anion gap [Moles/Vol] 13 mmol/L 9 - 17 mmol/L [facility] AST [Catalytic activity/Vol] 34 U/L High NINF - 32 U/L [facility] Bilirubin [Mass/Vol] 0.8 mg/dL 0.3 - 1 .2 mg/dL [facility] Calcium [Mass/Vol] 9.2 mg/dL 8.6 - 10. 4 mg/dL [facility] Chloride [Moles/Vol] 101 mmol/L 98 - 10 7 mmol/L [facility] CO2 [Moles/Vol] 22 mmol/L 20 - 31 mmol/L [facility] Creatinine [Mass/Vol] 0.54 mg/dL 0.50 - 0.90 mg/dL [facility] GFR/1.73 sq M.predicted MDRD (S/P/Bld) [Vol rate/Area] - PINF [facility] Comment on above: These results [...] 88 mg/dL 70 - 99 mg/dL [facility] Interpretation and review of laboratory results Abnormal [facility] [place] [employer] Potassium [Moles/Vol] 4.3 mmol/L 3.7 - 5.3 mmol/L [facility] Protein [Mass/Vol] 8.1 g/dL 6.4 - 8.3 g/dL [facility] Sodium [Moles/Vol] 136 mmol/L 135 - 144 mmol/L [facility] Urea nitrogen [Mass/Vol] 11 mg/dL 6 - 20 mg/dL [facility] Urea nitrogen/Creatinine [Mass ratio] 20 mg/mg 9 - 20 [facility] [facility] Lipid Panelon 10-03-2022 Cholesterol [Mass/Vol] 172 mg/dL NINF - 200 mg/dL [facility] Comment on above: Cholesterol Guidelines: <200 Desirable 200-240 Borderline >240 Undesirable Cholesterol in HDL [Mass/Vol] 36 mg/dL Low 40 - PINF mg/dL [facility] Comment on above: HDL Guidelines: <40 Undesirable 40-59 Borderline >59 Desirable Cholesterol in LDL [Mass/Vol] 79 mg/dL 0 - 130 mg/dL [facility] Comment on above: LDL Guidelines: <100 Desirable 100-129 Near to/above Desirable 130-159 Borderline >159 Undesirable Direct (measured) LDL and calculated LDL are not interchangeable tests. Cholesterol.total/Ch olesterol in HDL [Mass ratio] 4.8 {ratio} NINF - 5 [facility] Interpretation and review of laboratory results Abnormal [facility] Triglyceride [Mass/Vol] 285 mg/dL High NINF - 150 mg/dL [facility] Comment on above: Triglyceride Guidelines: <150 Desirable 150-199 Borderline 200-499 High >499 Very high Based on AHA Guidelines for fasting triglyceride, December 2011. [facility] GridPoint T3, Freeon 10-03-2022 Free T3 [Mass/Vol] 3.76 pg/mL 2.02 - 4. 43 pg/mL [facility] TSH With Reflex [id number] TSH Qn 1.66 m[IU]/L [facility] TSH w/reflex to FT4on 2022 Thyroid Stim. Horm. 1.66 uIU/mL Normal 0.30-5.00 [facility] Comment on above: Performed By: #### T SHX #### [facility] [address] [place] [address] Front Desk: Hemant Murphy MD PAP ACOG PANEL 2: to 12-20-2021 . . Normal [facility] Comment on above: Performed By: #### [id number] #### [facility] [address] [place] [address] Dr. Sachin Pereira Age Gdln ACOG Testing - [facility] Comment on above: Performed By: #### [id number] #### [facility] [address] [address] [address] Sachin Pereira DIAGNOSIS: Comment [facility] Comment on above: Result Comment: NEGA TIVE FOR INTRAEPITHELIAL LESION OR MALIGNANCY. Performed By: #### [id number] #### [facility] [address] [place] [address] Dr. Sachin Pereira Methodology: Comment [facility] Comment on above: Result Comment: This liquid based ThinPrep(R) pap test was screened with the use of an image guided system. Performed By: #### [id number] #### [facility] [address] [address] [address] Sachin Pereira Note: Comment [facility] Comment on above: Result Comment: The Pap smear is a screening test designed to aid in the detection of premalignant and malignant conditions of the uterine cervix. It is not a diagnostic procedure and should not be used as the sole means of detecting cervical cancer. Both false-positive and false-negative reports do occur. . Performed By: #### 4 [id number] #### [facility] [address] [address] [address] Sachin Pereira Performed by: Comment Normal [facility] Comment on above: Result Comment: Collette Holliday, Glass Inspector (ASCP) Performed By: #### [id number] #### [facility] [address] [address] [address] Sachin Pereira Reflex Criteria: Comment Normal [facility] Comment on above: Result Comment: The HPV DNA reflex criteria were not met with this specimen result therefore, no HPV testing was performed. . Performed By: #### [id number] #### [facility] [address] [address] [address] Sachin Pereira Specimen adequacy: Comment Normal [facility] Comment on above: Result Comment: Sati sfactory for evaluation. Endocervical and/or squamous metaplastic cells (endocervical component) are present. Performed By: #### 4 [id number] #### [facility] [address] [address] [address] Sachin Pereira Vital Signs Date Time Vital Sign Value Performing Clinician Carmelo douglas 04-09-2024 11:19-0500 Body mass index (BMI) [Ratio] 45.69 kg/m2 Jesika MARIE Work Phone: [facility] 04-09-2024 11:19-0500 Body weight 140.34 kg Jesika MARIE Work Phone: [facility] 04-09-2024 11:19-0500 Diastolic blood pressure 84 mm[Hg] Jesika MARIE Work Phone: [facility] 04-09-2024 11:19-0500 Systolic blood pressure 144 mm[Hg] Jesika Mcknight PA Work Phone: [facility] 03-19-2024 11:03-0500 Body mass index (BMI) [Ratio] 46.04 kg/m2 Gilles Regis DO Work Phone: [facility] 03-19-2024 11:03-0500 Body weight 141.43 kg Gilles Regis DO Work Phone: [facility] 03-19-2024 11:03-0500 Diastolic blood pressure 90 mm[Hg] Gilles Regis DO Work Phone: [facility] 03-19-2024 11:03-0500 Systolic blood pressure 148 mm[Hg] Gilles Regis DO Work Phone: [facility] 02-20-2024 10:16-0500 Body mass index (BMI) [Ratio] 44.45 kg/m2 Jesika MARIE Work Phone: [facility] 02-20-2024 10:16-0500 Body weight 136.53 kg Jesika MARIE Work Phone: [facility] 02-20-2024 10:16-0500 Diastolic blood pressure 84 mm[Hg] Jesika MARIE Work Phone: [facility] 02-20-2024 10:16-0500 Systolic blood pressure 124 mm[Hg] Jesika MARIE Work Phone: [facility] 01-23-2024 11:02-0400 Body mass index (BMI) [Ratio] 44.3 kg/m2 Gilles Regis DO Work Phone: [facility] 01-23-2024 11:02-0400 Body weight 136.08 kg Gilles Regis DO Work Phone: [facility] 01-23-2024 11:02-0400 Diastolic blood pressure 82 mm[Hg] Gilles Regis DO Work Phone: [facility] 01-23-2024 11:02-0400 Systolic blood pressure 120 mm[Hg] Gilles Regis DO Work Phone: [facility] 12-26-2023 09:31-0400 Body mass index (BMI) [Ratio] 44.01 kg/m2 Gilles Regis DO Work Phone: [facility] 12-26-2023 09:31-0400 Body weight 135.17 kg Gilles Regis DO Work Phone: [facility] 12-26-2023 09:31-0400 Diastolic blood pressure 72 mm[Hg] Gilles Regis DO Work Phone: [facility] 12-26-2023 09:31-0400 Systolic blood pressure 120 mm[Hg] Gilles Regis DO Work Phone: [facility] 11-28-2023 08:56-0400 Body mass index (BMI) [Ratio] 44.08 kg/m2 Gilles Regis DO Work Phone: [facility] 11-28-2023 08:56-0400 Body weight 135.38 kg Gilles Regis DO Work Phone: [facility] 11-28-2023 08:56-0400 Diastolic blood pressure 70 mm[Hg] Gilles Regis DO Work Phone: [facility] 11-28-2023 08:56-0400 Systolic blood pressure 120 mm[Hg] Gilles Regis DO Work Phone: [facility] Encounters Encounter Date Encounter Type Care Provider Facility Start: 04-10-2024 End: 04-10-2024 Clinisync Result Encounter Jesika MARIE Work Phone: [facility] External Department Unsolicited Start: 04-10-2024 End: 04-10-2024 Clinisync Result Encounter Jesiak MARIE Work Phone: [facility] External Department Unsolicited Start: 04-09-2024 End: 04-09-2024 flow sheet Jesika MARIE Work Phone: [facility] Comment on above: Third trimester preg chanel; 31 weeks gestation of ; induced hypertension, antepartum; Gestational proteinuria in third trimester; Gestational hypertension without significant proteinuria in third trimester Start: 03-19-2024 End: 03-19-2024 Bamboo flowsheet Gilles Regis DO Work Phone: [facility] Start: 03-19-2024 End: 03-19-2024 Bamboo flowsheet Gilles Regis DO Work Phone: [facility] Start: 03-19-2024 End: 03-19-2024 [...] encounter procedure Gilles Regis DO Work Phone: [facility] Start: 12-26-2023 End: 12-26-2023 Periodic [...] Start: 10-03-2022 End: 10-04-2022 ambulatory [place] [facility] Start: 10-03-2022 End: 10-03-2022 Subsequent hospital visit by physician Ny Michael [employer] Work Phone: [facility] Comment on above: [...] Assay of triiodothyronine t3 free Ny Michael [employer] Work Phone: Start: 10-03-2022 Lipid panel Ny Michael [employer] Work Phone: Plan of Treatment Date Care Activity Detail Author Start: 04-23-2024 End: 04-23-2024 Patient encounter procedure 04/23/2024 8:30 AM EST Routine [facility] [address] [place] [id number] Gilles Stacy, DO [address] [place] [address] [place] [address] [facility] Start: 04-09-2024 End: 04-09-2025 Alanine aminotransferase [Enzymatic activity/volume] in Serum or Plasma ALT Lab Routine induced hypertension, antepartum Expected: 04/09/2024 (Approximate), Expires: 04/09/2025 [facility] Comment on above: Expected: 04/09/2024 (Approximate), Expires: 04/09/2025 Start: 04-09-2024 End: 04-09-2025 Aspartate aminotransferase [Enzymatic activity/volume] in Serum or Plasma AST Lab Routine induced hypertension, antepartum Expected: 04/09/2024 (Approximate), Expires: 04/09/2025 [facility] Comment on above: Expected: 04/09/2024 (Approximate), Expires: 04/09/2025 Start: 04-09-2024 End: 04-09-2025 CBC W Auto Differential panel - Blood CBC and differential Lab Routine induced hypertension, antepartum Expected: 04/09/2024 (Approximate), Expires: 04/09/2025 [facility] Comment on above: Expected: 04/09/2024 (Approximate), Expires: 04/09/2025 Start: 04-09-2024 End: 04-09-2025 Creatinine [Mass/volume] in Serum or Plasma Creatinine Lab Routine induced hypertension, antepartum Expected: 04/09/2024 (Approximate), Expires: 04/09/2025 [facility] Work Phone: Comment on above: Expected: 04/09/2024 (Approximate), Expires: 04/09/2025 Start: 04-09-2024 End: 04-09-2025 Lactate dehydrogenase [Enzymatic activity/volume] in Serum or Plasma by Lactate to pyruvate reaction Lactate dehydrogenase Lab Routine induced hypertension, antepartum Expected: 04/09/2024, Expires: 04/09/2025 [facility] Comment on above: Expected: 04/09/2024 [...] AM EST Routine [facility] [address] [facility] [place] [id number] Jesika Mcknight PA [address] [place] [address] [facility] Start: 04-09-2024 End: 04-09-2024 Professional / ancillary services management 04/09/2024 10:30 AM EST Ancillary Procedure [facility] [address] [place] [id number] [facility] Start: 03-19-2024 End: 03-19-2025 US biophysical profile w non stress test US biophysical profile w non stress test Imaging Routine Gestational diabetes mellitus (GDM), antepartum, gestational diabetes method of control unspecified Expected: 03/19/2024 (Approximate), Expires: 03/19/2025 [facility] Work Phone: Comment on above: [...] mellitus screening Expected: 02/20/2024 (Approximate), Expires: 02/19/2025 [facility] Work Phone: Comment on above: Expected: 02/20/2024 (Approximate), Expires: 02/19/2025 Start: 02-20-2024 End: 02-19-2025 Measurement of glucose 1 hour after glucose challenge for glucose tolerance test Glucose tolerance, 1 hour Lab Routine Diabetes mellitus screening Expected: 02/20/2024 (Approximate), Expires: 02/19/2025 [facility] Comment on above: Expected: 02/20/2024 (Approximate), Expires: 02/19/2025 Start: 02-20-2024 End: 02-20-2024 Patient encounter procedure [facility] Comment on above: Arrived Start: 01-23-2024 End: 01-23-2024 Patient encounter procedure [facility] Comment on above: Arrived Start: 01-23-2024 End: 01-23-2024 Professional / ancillary services management 01/23/2024 10:00 AM EDT Ancillary Procedure [facility] [address] [facility] [place] [id number] [facility] Start: 12-26-2023 End: 01-25-2024 Alpha fetoprotein, maternal Alpha fetoprotein, maternal Lab Routine Need for maternal serum alpha-protein (MSAFP) screening Expected: 12/26/2023 (Approximate), Expires: 01/25/2024 [facility] Comment on above: Expected: 12/26/2023 (Approximate), Expires: 01/25/2024 Start: 12-26-2023 End: 12-25-2024 US for US OB ANATOMY SINGLE W US OB CERVICAL LENGTH Imaging Routine Screening, , for anatomic survey Expected: 12/26/2023 (Approximate), Expires: 12/25/2024 [facility] Comment on above: Expected: 12/26/2023 (Approximate), Expires: 12/25/2024 Start: 12-26-2023 End: 12-26-2023 Patient encounter procedure [facility] Comment on above: Arrived Start: 12-01-2023 Influenza vaccination Influenza Vacc ine (#1) [facility] Start: 11-28-2023 End: 11-27-2024 Measurement of glucose 1 hour after glucose challenge for glucose tolerance test Glucose tolerance, 1 hour Lab Routine Diabetes mellitus screening Expected: 11/28/2023 (Approximate), Expires: 11/27/2024 [facility] Work Phone: Comment on above: Expected: 11/28/2023 (Approximate), Expires: 11/27/2024 Start: 11-28-2023 End: 11-28-2023 Patient encounter procedure [facility] Comment on above: Arrived Start: 10-09-2023 End: 10-09-2023 Patient encounter procedure 10/09/2023 Office Visit Primary Care Ny Michael, [employer] [address] [place] [address] [facility] Start: 10-02-2023 Depression Screen Depression Screen [facility] Start: 10-02-2023 DTaP/Tdap/Td vaccine (1 - Tdap) DTaP/Tdap/Td vaccine (1 - Tdap) [facility] Comment on above: Postponed from 07/16 (Patient Refused) Start: 10-02-2023 Hepatitis C screening Hepatitis C sc reen [facility] Comment on above: Postponed from 07/16 (Patient Refused) Start: 10-02-2023 HIV screening HIV screen [facility] Comment on above: Postponed from 07/16 (Patient Refused) Start: 10-02-2023 HPV vaccine (1 - 2-d ose series) HPV vaccine (1 - 2-dose series) [facility] Comment on above: Postponed from 07/16 (Patient Refused) Start: 10-30-2022 Influenza vaccination Flu vaccine (# 1) [facility] Start: 05-01-2021 COVID-19 Vaccine (2 - Booster for Kinga series) COVID-19 Vaccine (2 - Booster for Kinga series) [facility] Start: 2017 Screening for malign ant neoplasm of cervix Pap smear [facility] CHLAMYDIA TRACHOMATI S (GENITO/STI) CHLAMYDIA TRACHOMATIS (GENITO/STI) Lab Routine Exposure to STD Ordered: 12/26/2023 [facility] Comment on above: Ordered: 12/26/2023 Cytology Cervical or vaginal smear or scraping study Pap Smear Pathology and Cytology Routine Well woman exam with routine gynecological exam Ordered: 12/26/2023 [facility] Comment on above: Ordered: 12/26/2023 Neisseria gonorrhoea e DNA [Presence] in Unspecified specimen by SHANNA with probe detection Neisseria gonorrhea DNA probe, direct Lab Routine Exposure to STD Ordered: 12/26/2023 [facility] Comment on above: Ordered: 12/26/2023 SURESWAB(R) ADVANCED VAGINITIS PLUS, TMA SURESWAB(R) ADVANCED VAGINITIS PLUS, TMA Pathology and Cytology Routine Exposure to STD Ordered: 12/26/2023 [facility] Work Phone: Comment on above: Ordered: 12/26/2023 Immunizations Immunization Date Immunization Notes Care Provider Chano bowen 03-06-2021 COVID-19, J&J, (age 18y+), IM, 0.5 mL Ny Michael [employer] Work Phone: [facility] Payers Date Payer Category Payer Private Health Insurance [id number] 2022 Private Health Insurance [id number] 1996 Unknown [id number] 2.16.84 [id number] 1996 Unknown [id number] 2.16.84 [id number] 1996 Unknown [id number] 2.16.8 [id number] 1996 Unknown [id number] 2.16.84 [id number] 1996 Unknown [id number] 2.16.84 [id number] 1996 Unknown [id number] 2.16.84 [id number] 1996 Unknown [id number] 2.16.84 [id number] 1996 Unknown [id number] 2.16.84 [id number] 1996 Unknown [id number] 2.16.84 [id number] 1959 Self-pay [id number] 1959 Unknown [id number] Social History Date Type Detail Facility Start: 10-01-2022 Tobacco smoking status [facility] Ex-smoker [facility] End: 05-30-2021 History of tobacco use Current smoker [facility] End: 05-30-2021 History of tobacco use Cigarette Smoker [facility] History of tobacco use Tobacco U se Types Packs/Day Years Used Date Smoking Tobacco: Former Cigarettes 0.5 5 Quit: 05/2021 E-Cigarettes Smokeless Tobacco: Never [facility] Start: 10-01-2022 Cigarettes smoked current (pack per day) - Reported 0.5 [facility] Start: 10-01-2022 Tobacco use and exposure Smokeless tobacco non-user [facility] Start: 10-01-2022 Alcohol intake Ex-drinker (finding) [facility] Start: 10-01-2022 History SDOH Physical Activity DPW 3 [facility] Start: 10-01-2022 History SDOH Physical Activity MPS 6 [facility] Start: 10-01-2022 History SDOH Financial 5 [facility] Start: 10-01-2022 History SDOH Food Worry 1 [employer] Start: 10-01-2022 History SDOH Transport Non-Med 2 [facility] Start: 10-01-2022 Alcohol Comment Socially [facility] Start: 1995 Sex Assigned At Female [facility] Tobacco smoking stat [facility] Tobacco smoking consumption unknown [facility] Start: 09-17-2023 [facility] Start: 12-11-2022 Gender identity Identifies as female gender (finding) [facility] Start: 12-11-2022 Sexual orientation Heterosexual (finding) [facility] Medical Equipment Procedure Code Equipment Code Equipment Origin al Text Equipment Identifier Dates 1 strip by In Vi tro route Daily Use in the morning prior to breakfast, 1 hour after each meal for a total of 4times daily. [id number] Start: 03-16-2024 End: 04-15-2024 1 each by In Vit ro route Daily Use to check FSBS four times daily [id number] Start: 03-16-2024 End: 04-15-2024 Goals Date Patient [...] mg, Oral, Daily Blood Glucose Monitoring Suppl ([employer] Social Glucometer) w/Device kit 1 kit, Does not [...] of: CYNTHIA Parker documented in this encounter [facility] 03-19-2024 History of Presen t illness Narrative [...] mg, Oral, Daily Blood Glucose Monitoring Suppl ([employer] Social Glucometer) w/Device kit 1 kit, Does not [...] Gilles Stacy DO documented in this encounter [facility] 02-20-2024 History of Presen t illness [...] nursing note reviewed. Exam conducted with a youth development professional present. Vitals: Estimated body mass index is [...] hour glucose order to have done at [facility]. Orders Placed This Encounter Procedures CBC Glucose tolerance, 1 hour POCT urinalysis dipstick manually resulted Follow Up: Patient is to return to office in 2 week for routine OB appointment. Documented by Giovana Azar MA on behalf of: CYNTHIA Parker documented in this encounter [facility] 01-23-2024 History of Presen t illness [...] nursing note reviewed. Exam conducted with a youth development professional present. Vitals: Estimated body mass index is [...] Gilles Stacy DO documented in this encounter [facility] 12-26-2023 History of Presen t illness [...] nursing note reviewed. Exam conducted with a youth development professional present. Vitals: Estimated body mass index is [...] Gilles Stacy DO documented in this encounter [facility] 11-28-2023 History of Presen t illness [...] nursing note reviewed. Exam conducted with a youth development professional present. Vitals: Estimated body mass index is [...] or undercooked meat, and stay away from [facility]. Patient has been consulted regarding any [...] Gilles Stacy DO documented in this encounter [facility] Evaluation note Diagnosis Screening for [...] for diabetes mellitus documented in this encounter [facility] HealthcareEvaluation note* Diagnosis Second trimester state, [...] in third trimester documented in this encounter [facility] Summary Purpose Family History No [...] DATE CREATED AUTHOR AUTHOR'S ORGANIZ ATION 03/22/2024 [facility] Care Teams (unrecognized sec tion and content) Appointment Specialist Relationship Specialty Start Date End Date Ny Michael, MIKAYLA - [employer] OPERATOR [address] [place] [address] PCP - General Certified Nurse Practitioner 10/01/22 [...] BE BASED ON THE PRIMARY CLINICAL RECORDS. [employer] provides no warranty or guarantee of the accuracy or completeness of information in this document.
[2024-04-13 10:49] LABS: Total Protein Urine Random 21.4 mg/dL (<=11.9)
[2024-04-13 11:01] LABS: Total Protein 24 Hour Urine 310.3 mg/24hr (<=149.1); Total Volume 24 Hour Urine 1450 mL/24hr
== END 2024-04-13 07:07 | disposition home or self-care (01) ==
LOC: LAB 07:06
PROVIDERS: Visit Provider Physician Assistant
DX: O13.9 Gestational [pregnancy-induced] hypertension without significant proteinuria, unspecified trimester (principal)
CPT/HCPCS: 81050; 84156

== ENCOUNTER 2024-04-16 01:07 | Outpatient (OUT) | payer OTHER, SELFPAY ==
--- NOTE | 2024-04-16 | US_ITS ---
[address] [address] Patient Name: DOREEN MARQUEZ MRN: [id number] date: 1995 Sex: F Assigned Patient Location: LAB Current Patient Location: [facility] Accession/Order Number: [id number] Exam Date: 04/16/2024 10:55 Report Date: 04/16/2024 11:26 At the request of: GILLES DIEGO Procedure: US OB BPP w non-stress EXAMINATION: US OB BPP w non-stress HISTORY: Gestational diabetes mellitus O24.419 COMPARISON: No relevant comparison available. TECHNIQUE: Ultrasound biophysical profile was performed in the radiology department. non-reactive stress testing was performed by nursing staff in the birthing center. FINDINGS: BREATHING MOVEMENTS: 2 GROSS BODY MOVEMENTS: 2 TONE: 2 QUALITATIVE AMNIOTIC FLUID VOLUME: 2 PRESENTATION: CEPHALIC HEART RATE: 151.69 bpm AMNIOTIC FLUID VOLUME: 17.5 cm GESTATIONAL AGE: 32w2d US/US OB BPP w non-stress IMPRESSION: Total biophysical profile score: 8 Electronically authenticated by: NAYA FREEMAN Date: 04/16/2024 11:26
--- OUTSIDE RECORDS SUMMARY | 2024-04-16 01:13 | XMS_ITS | CCD ---
Author Organization [facility] Care Team Providers Care Extract Mixer Name Role Phone FIDENCIO ANDRES Primary Care Unavailable FIDENCIO ANDRES Attending Unavailable FIDENCIO ANDRES Admitting Unavailable REGIS, DR CAMPOVERDE Admitting Unavailable REGIS, DR CAMPOVERDE Consulting Unavailable REGIS, DR CAMPOVERDE Attending Unavailable FIDENCIO ANDRES Primary Care Unavailable Stephania Ny FLEICIANO CNP Primary Care [facility] [place] MICHAEL Referring Unavailable [place] MICHAEL Primary Care Unavailable Unavailable Primary Care Provider UnavailGILLES Jenkins Attending Unavailable GILLES STACY Attending Unavailable GILLES STACY Attending Unavailable JESIKA MCKNIGHT Attending Unavailable GILLES STACY Attending Unavailable JESIKA MCKNIGHT Attending Unavailable Medications Current Medications Medication Drug Class(es) Dates Sig (Normalized) Sig (Original) aspirin 81 mg delayed release oral tablet (6 sources) Platelet Aggregation Inhibitor, Nonsteroidal Anti-inflammatory Drug take 1 tablet by mouth once daily aspirin 81 MG EC tablet Take 81 mg by mouth Daily Active Blood Glucose Monitoring Suppl (D-Care Glucometer) w/Device kit (7 sources) Start: 03-16-2024 End: 03-16-2025 Blood Glucose [...] Active isopropyl alcohol 0.7 ml/ml medicated pad (7 sources) Start: 03-16-2024 Alcohol Swabs (Alcohol Prep Pad) 70 % pads Indications: Gestational diabetes mellitus (GDM), antepartum, gestational diabetes method of control unspecified , Elevated glucose tolerance test Apply 1 Pad topically Daily Use four times daily to check FSBS. 150 each 3 03/16/2024 Active labetalol hydrochloride 100 mg oral tablet (4 sources) beta-Adrenergic Darlene Start: 04-09-2024 End: 07-08-2024 [...] weeks gestation of ] 04-09-2024 Episodic Unclassified (18 sources) OB Reminders Onset: 12-26-2023 12-26-2023 Past or Other Problems Problem Classification Problem Date Documented Da te Episodic/Chronic Residual codes; unclassified (2 sources) Gestation period, 12 weeks; Translations: [12 weeks gestation of ] 11-28-2023 Episodic Results Test Name Value Interpretation Reference Range Facility [facility] TOTAL PROTEIN 24 HOUR UR INEon 04-13-2024 Interpretation and review of laboratory results Abnormal [facility] Protein (U) [Mass/Vol] 21.4 mg/dL High NINF - 11.9 mg/dL [facility] TBH TOTAL PROTEIN 24 HOUR URINE 310.3 High [facility] [place] TOTAL VOLUME 24 HOUR URINE 1450 mL/24hr [facility] e ALL CBC WITH AUTO DIFFon BASOPHILS ABSOLUTE AUTO 0.1 [facility] Basophils/100 WBC (Bld) 0.5 % 0.2 - 2.0 % [facility] Eosinophils/100 WBC (Bld) 1.4 % 0.9 - 7.0 % [facility] Erythrocyte distribution width (RBC) [Ratio] 15.1 % High 11.0 - 15.0 % [facility] Hematocrit (Bld) [Volume fraction] 36.2 % 36.0 - 48.0 % [facility] Hemoglobin (Bld) [Mass/Vol] 11.5 g/dL Low 12.0 - 16.0 g/dL [facility] IMMATURE GRANULOCYTES ABS AUTO 0.05 High [facility] Immature granulocytes/100 WBC (Bld) 0.3 % 0.0 - 0.5 % [facility] Interpretation and review of laboratory results Abnormal [facility] LYMPHOCYTES ABSOLUTE AUTO 2.9 [facility] Lymphocytes/100 WBC (Bld) 19.5 % Low 20.5 - 60.0 % [facility] MCH (RBC) [Entitic mass] 25 pg Low 26.7 - 34.0 pg [facility] MCHC (RBC) [Mass/Vol] 31.8 g/dL 29.9 - 35.2 g/dL [facility] MCV (RBC) [Entitic vol] 78.7 fL Low 81.0 - 99.0 fL [facility] MONOCYTES ABSOLUTE AUTO 1.2 High [facility] Monocytes/100 WBC (Bld) 7.6 % 1.7 - 12.0 % [facility] NEUTROPHILS ABSOLUTE AUTO 10.6 High [facility] Neutrophils/100 WBC (Bld) 70.7 % 43.0 - 75.0 % [facility] Platelet mean volume (Bld) [Entitic vol] 11.6 fL 9.5 - 13.5 fL [facility] EO # 0.2 [facility] PLT 320 [facility] RBC 4.6 [facility] WBC 15.1 High [facility] US OB FOLLOW UP TRANSABDOMIN AL APPROACHon 04-09-2024 US OB FOLLOW UP TRANSABDOMINAL APPROACH TITLE OF EXAM: OB Ultrasound: REASON FOR EXAM: GDM. COMPARISON: None TECHNIQUE: Grayscale and M-mode Doppler imaging is performed. FINDINGS: Measurements: heart rate: 162 bpm PAU: 16.0 cm (8.7-23.9) BPD: 7.9 cm HC: 29.6 cm AC: 31.0 cm FL: 6.0 cm GA for sonogram: 32.0 wk (29.6-34.4) [place] MARIELLA: 06/09/2024 Weight Estimate: Weight: 2177 cm / 4 lbs, 12 oz (9184-0344 gm) [place] Normal: 1812 gm (3617-2963 gm) [place] Wt%: >97% for 31.3 wks Limited for: Growth Presentation: Cephalic Lie: Longitudinal Amniotic Fluid: 16.1 cm Largest Fluid Pocket: 6.7 cm Heart Rate: 162 bpm IMPRESSION: Single live intrauterine gestation in cephalic position with sonographic EGA 32 W6D. This represents a 1 week 3-day discrepancy with provided clinical dates. Dictated and transcribed 04/09/24/dpd This report has been electronically signed and approved by the interpreting radiologist. Normal Not Available Comment on above: Order Comment: US OB SCAN FOR GROWTH Estimated Date of Delivery: 06/09/24 Gestational Age as of 03/19/2024: 30w6d Urinalysis macro (dipstick) panel (U)on 04-09-2024 Bilirubin, UA Negative Negative - 4(70) +++ mg/dL [facility] Blood, UA Negative Negative - 50 Horacio/mcL [facility] Clarity, UA Clear [facility] Color, UA Yellow [facility] Glucose, UA Negative Negative - 1999(110) ++++ mg/dL [facility] Interpretation and review of laboratory results Abnormal [facility] Ketones, UA Negative Negative - 160(16) ++++ mg/dL [facility] Leukocytes, UA Negative Negative - 500+++ Nica/mcL [facility] Nitrite, UA Negative Negative - Positive [facility] pH, UA 6.5 5 - 9 [facility] Protein, UA Positive Negative - 1999(20) ++++ mg/dL [facility] Spec Grav, UA 1.03 1 - 1.03 [facility] Urobilinogen, UA 1.0 0.2 - 12 mg/dL [facility] Urinalysis macro (dipstick) panel (U)on 03-19-2024 Bilirubin, UA Negative Negative - 4(70) +++ mg/dL [facility] Blood, UA Negative Negative - 50 Horacio/mcL [facility] Clarity, UA Clear [facility] Health[facility] re Color, UA Straw [facility] Glucose, UA Negative Negative - 1999(110) ++++ mg/dL [facility] Interpretation and review of laboratory results Abnormal [facility] Ketones, UA Negative Negative - 160(16) ++++ mg/dL [facility] Leukocytes, UA Trace Negative - 500+++ Nica/mcL [facility] Nitrite, UA Negative Negative - Positive [facility] pH, UA 6 5 - 9 [facility] Protein, UA Negative Negative - 1999(20) ++++ mg/dL [facility] Spec Grav, UA 1.03 1 - 1.03 [facility] Urobilinogen, UA 0.2 0.2 - 12 mg/dL [facility] GLUCOSE TOLERANCE 3 HOURon 1 05-13-2023 GLUCOSE TOLERANCE 3 HOUR High mg/dL [facility] Comment on above: GLU FAST 108H (<95) Col: 03/12/24 0757 GLU 1HR 190H (<180) Col: 03/12/24 0900 GLU 2HR 172H (<155) Col: 03/12/24 1000 GLU 3HR 121 (<140) Col: 03/12/24 1100 Interpretation and review of laboratory results Abnormal [facility] ALL CBC WITH AUTO DIFFon BASOPHILS ABSOLUTE [facility]O 0.1 [facility] Basophils/100 WBC (Bld) 0.5 % 0.2 - 2.0 % [facility] Eosinophils/100 WBC (Bld) 2.4 % 0.9 - 7.0 % [facility] Erythrocyte distribution width (RBC) [Ratio] 14.7 % 11.0 - 15.0 % [facility] Hematocrit (Bld) [Volume fraction] 36.9 % 36.0 - 48.0 % [facility] Hemoglobin (Bld) [Mass/Vol] 11.7 g/dL Low 12.0 - 16.0 g/dL [facility] IMMATURE GRANULOCYTES ABS AUTO 0.07 High [facility] Immature granulocytes/100 WBC (Bld) 0.5 % 0.0 - 0.5 % [facility] Interpretation and review of laboratory results Abnormal [facility] LYMPHOCYTES ABSOLUTE AUTO 3.3 [facility] Lymphocytes/100 WBC (Bld) 22.6 % 20.5 - 60.0 % [facility] MCH (RBC) [Entitic mass] 25.6 pg Low 26.7 - 34.0 pg [facility] MCHC (RBC) [Mass/Vol] 31.7 g/dL 29.9 - 35.2 g/dL [facility] MCV (RBC) [Entitic vol] 80.7 fL Low 81.0 - 99.0 fL [facility] MONOCYTES ABSOLUTE AUTO 1 High [facility] Monocytes/100 WBC (Bld) 6.7 % 1.7 - 12.0 % [facility] NEUTROPHILS ABSOLUTE AUTO 9.7 High [facility] Neutrophils/100 WBC (Bld) 67.3 % 43.0 - 75.0 % [facility] Platelet mean volume (Bld) [Entitic vol] 10.4 fL 9.5 - 13.5 fL [facility] # 0.3 [facility] PLT 339 [facility] RBC 4.57 [facility] WBC 14.4 High [facility] Urinalysis macro (dipstick) panel (U)on 02-20-2024 Bilirubin, UA Negative Negative - 4(70) +++ mg/dL [facility] Blood, UA Negative Negative - 50 Horacio/mcL [facility] Healthcare Clarity, UA Clear [facility] Color, UA Yellow [facility] Glucose, UA Negative Negative - 1999(110) ++++ mg/dL [facility] Interpretation and review of laboratory results Abnormal [facility] Ketones, UA Negative Negative - 160(16) ++++ mg/dL [facility] Leukocytes, UA Trace Negative - 500+++ Nica/mcL [facility] Nitrite, UA Negative Negative - Positive [facility] pH, UA 7 5 - 9 [facility] Health[facility] Protein, UA Negative Negative - 1999(20) ++++ mg/dL [facility] Spec Grav, UA 1.025 1 - 1.03 [facility] care Urobilinogen, UA 0.2 0.2 - 12 mg/dL [facility] Urinalysis macro (dipstick) panel (U)on 01-23-2024 Bilirubin, UA Negative Negative - 4(70) +++ mg/dL [facility] Blood, UA Negative Negative - 50 Horacio/mcL [facility] Clarity, UA Clear [facility] Color, UA Yellow [facility] Glucose, UA Negative Negative - 1999(110) ++++ mg/dL [facility] Interpretation and review of laboratory results Abnormal [facility] Ketones, UA Negative Negative - 160(16) ++++ mg/dL [facility] Healthcare Leukocytes, UA Trace Negative - 500+++ Nica/mcL [facility] Nitrite, UA Negative Negative - Positive [facility] pH, UA 6.5 5 - 9 [facility] Protein, UA Negative Negative - 1999(20) ++++ mg/dL [facility] Spec Grav, UA 1.015 1 - 1.03 [facility] Urobilinogen, UA 0.2 0.2 - 12 mg/dL [facility] IGP,APTIMA HPV,AGE GDLNon AGE GDLN ACOG TESTING Note . [facility] Comment on above: TESTS RESULT FLAG UN ITS REF RANGE LAB Clinician Provided Cytology Information Source.............Cervix Other.............. No. of containers..01 ThinPrep Vial Age Raul RODARTE Micaela... FLAG LEGEND: L-Low Normal,H-High Normal,LL-Alert Low,HH-Alert High <-Panic Low,>-Panic High,A-Abnormal,AA-Critical Abnormal Performed at: 01 =G [facility] [address] [place] [address] Vania Cabezas MD, IGP, RFX APTIMA HPV ASCU Note . [facility] Comment on above: TESTS RESULT FLAG UN ITS REF RANGE LAB DIAGNOSIS: 02 NEGATIVE FOR INTRAEPITHELIAL LESION OR MALIGNANCY. Specimen adequacy: 02 Satisfactory for evaluation. Endocervical and/or squamous metaplastic cells (endocervical component) are present. Performed by: Riley Franklin Special Events Director ([facility]) . 02 Note: Note 02 [...] <-Panic Low,>-Panic High,A-Abnormal,AA-Critical Abnormal Performed at: [address] [id number] Vania Cabezas MD, Performed at: =G - [facility] [id number] Dobby Loom Fixer: Vania Cabezas MD, Phone: [phone] Performed at: [facility] [address] [id number] Dobby Loom Fixer: Vania Cabezas MD, Phone: [phone] [facility] Urinalysis macro (dipstick) panel (U)on 12-26-2023 Bilirubin, UA Negative Negative - 4(70) +++ mg/dL [facility] Blood, UA Negative Negative - 50 Horacio/mcL [facility] Clarity, UA Clear [facility] Color, UA Yellow [facility] [employer] e Glucose, UA Negative Negative - 2000(110) ++++ mg/dL [facility] Interpretation and review of laboratory results Normal [facility] Ketones, UA Positive Negative - 160(16) ++++ mg/dL [facility] Comment on above: trace Leukocytes, UA Positive Negative - 500+++ Nica/mcL [facility] Comment on above: small Nitrite, UA Negative Negative - Positive [facility] pH, UA 6.0 5 - 9 [facility] Protein, UA Negative Negative - 1999(20) ++++ mg/dL [facility] Spec Grav, UA 1.015 1 - 1.03 [facility] Urobilinogen, UA 0.2 0.2 - 12 mg/dL [facility] GLUCOSE 1 HOURon 12-11-2023 Glucose [Mass/Vol] 131 mg/dL High NINF - 13 0 mg/dL [facility] Interpretation and review of laboratory results Abnormal [facility] No Panel Informationon 11-28 STAPHYLOCOCCUS EPIDERMIDIS, HAEMOLYTICUS, LUGDUNENSIS, SAPROPHYTICUS (URINA 0.000 [facility] STAPHYLOCOCCUS EPIDERMIDIS, HAEMOLYTICUS, LUGDUNENSIS, SAPROPHYTICUS (URINA Not detected [facility] URINARY TRACT INFECTION (HTR X)on 11-29-2023 ACINETOBACTER BAUMANII 0.000 [facility] ACINETOBACTER BAUMANII Not detected [facility] CHRISTIAN ALBICANS, PARAPSILOSIS, TROPICALIS 0.000 [facility] CHRISTIAN ALBICANS, PARAPSILOSIS, TROPICALIS Not detected [facility] CHRISTIAN GLABRATA 0.000 [facility] ltare CHRISTIAN GLABRATA Not detected [facility] CHRISTIAN KRUSEI 0.000 [facility] hcare CHRISTIAN KRUSEI Not detected [facility] CITROBACTER FREUNDII 0.000 [facility] CITROBACTER FREUNDII Not detected NO [facility] ENTEROBACTER AEROGENES, CLOACAE 0.000 [facility] re ENTEROBACTER AEROGENES, CLOACAE Not detected [facility] re ENTEROCOCCUS FAECALIS, FAECIUM 0.000 [facility] e ENTEROCOCCUS FAECALIS, FAECIUM Not detected [facility] e ESCHERICHIA COLI 0.000 [facility] ESCHERICHIA COLI Not detected [facility] ealthcare KLEBSIELLA PNEUMONIAE, OXYTOCA 0.000 [facility] are KLEBSIELLA PNEUMONIAE, OXYTOCA Not detected [facility] are MORGANELLA MORGANII 0.000 [facility] MORGANELLA MORGANII Not detected [facility] PROTEUS MIRABILIS, VULGARIS 0.000 [facility] PROTEUS MIRABILIS, VULGARIS Not detected [facility] PSEUDOMONAS AERUGINOSA 0.000 [facility] PSEUDOMONAS AERUGINOSA Not detected [facility] SERRATIA MARCESCENS 0.000 [facility] SERRATIA MARCESCENS Not detected [facility] STAPHYLOCOCCUS AUREUS 0.000 [facility] STAPHYLOCOCCUS AUREUS Not detected [facility] STREPTOCOCCUS AGALACTIAE (GROUP B STREP) 0.000 [facility] STREPTOCOCCUS AGALACTIAE (GROUP B STREP) Not detected [facility] STREPTOCOCCUS PYOGENES (GROUP A STREP) 0.000 [facility] STREPTOCOCCUS PYOGENES (GROUP A STREP) Not detected [facility] Urinalysis macro (dipstick) panel (U)on 11-28-2023 Bilirubin, UA Positive Negative - 4(70) +++ mg/dL [facility] Comment on above: small Blood, UA Negative Negative - 50 Horacio/mcL [facility] Clarity, UA Clear [facility] re Color, UA Yellow [facility] Glucose, UA Negative Negative - 1999(110) ++++ mg/dL [facility] Interpretation and review of laboratory results Abnormal [facility] Ketones, UA Negative Negative - 160(16) ++++ mg/dL [facility] Leukocytes, UA Trace Negative - 500+++ Nica/mcL [facility] Nitrite, UA Negative Negative - Positive [facility] pH, UA 7.0 5 - 9 [facility] e Protein, UA Trace Negative - 1999(20) ++++ mg/dL [facility] Spec Grav, UA 1.025 1 - 1.03 [facility] Urobilinogen, UA 0.2 0.2 - 12 mg/dL [facility] Health[facility] e ALL CBC WITH AUTO DIFFon BASOPHILS ABSOLUTE AUTO 0.1 [facility] Basophils/100 WBC (Bld) 0.4 % 0.2 - 2.0 % [facility] Eosinophils/100 WBC (Bld) 1.5 % 0.9 - 7.0 % [facility] Erythrocyte distribution width (RBC) [Ratio] 14.8 % 11.0 - 15.0 % [facility] Hematocrit (Bld) [Volume fraction] 39.4 % 36.0 - 48.0 % [facility] Hemoglobin (Bld) [Mass/Vol] 12.8 g/dL 12.0 - 16.0 g/dL [facility] IMMATURE GRANULOCYTES ABS AUTO 0.04 High [facility] Immature granulocytes/100 WBC (Bld) 0.3 % 0.0 - 0.5 % [facility] Interpretation and review of laboratory results Abnormal [facility] LYMPHOCYTES ABSOLUTE AUTO 3.4 [facility] Lymphocytes/100 WBC (Bld) 26.5 % 20.5 - 60.0 % [facility] MCH (RBC) [Entitic mass] 25.7 pg Low 26.7 - 34.0 pg [facility] MCHC (RBC) [Mass/Vol] 32.5 g/dL 29.9 - 35.2 g/dL [facility] MCV (RBC) [Entitic vol] 79.0 fL Low 81.0 - 99.0 fL [facility] MONOCYTES ABSOLUTE AUTO 1.0 High [facility] Monocytes/100 WBC (Bld) 7.4 % 1.7 - 12.0 % [facility] NEUTROPHILS ABSOLUTE AUTO 8.3 High [facility] Neutrophils/100 WBC (Bld) 63.9 % 43.0 - 75.0 % [facility] Platelet mean volume (Bld) [Entitic vol] 10.6 fL 9.5 - 13.5 fL [facility] are TBH EO # 0.2 [facility] TBH PLT 345 [facility] TB RBC 4.99 [facility] TBH WBC 12.9 High [facility] Lipid Profileon 10-04-2022 Cholesterol [Mass/Vol] 172 mg/dL Normal <200 [facility] Comment on above: Result Comment: Cholesterol Guidelines: <200 Desirable 200-240 Borderline >240 Undesirable Performed By: #### L IPR #### [employer] [address] [place] [id number] Dobby Loom Fixer: Erik Redding MD Cholesterol in HDL [Mass/Vol] 36 mg/dL Low >40 [facility] Comment on above: Result Comment: HDL Guidelines: <40 Undesirable 40-59 Borderline >59 Desirable Performed By: #### L IPR #### [employer] [address] [place], [place] [id number] Dobby Loom Fixer: Erik Redding MD Cholesterol in LDL [Mass/Vol] 79 mg/dL Normal 0-130 [facility] Comment on above: Result Comment: LDL Guidelines: <100 Desirable 100-129 Near to/above Desirable 130-159 Borderline >159 Undesirable Direct (measured) LDL and calculated LDL are not interchangeable tests. Performed By: #### L IPR #### [address] [place] [address] Dobby Loom Fixer: Erik Redding MD Cholesterol.total/Ch olesterol in HDL [Mass ratio] 4.8 {ratio} Normal <5 [facility] Comment on above: Performed By: #### L IPR #### [address] [address] Dobby Loom Fixer: Erik Redding MD Triglyceride [Mass/Vol] 285 mg/dL High <150 [facility] Comment on above: Result Comment: Triglyceride Guidelines: <150 Desirable 150-199 Borderline 200-499 High >499 Very high Based on AHA Guidelines for fasting triglyceride, December 2011. Performed By: #### L IPR #### [address] [address] Dobby Loom Fixer: Erik Redding MD T3, Freeon 10-04-2022 Free T3 [Mass/Vol] 3.76 pg/mL Normal 2.02-4.43 [facility] Comment on above: Performed By: #### F T3 #### [address] [address] Dobby Loom Fixer: Erik Redding MD #### CMPF #### [facility] [address] [place] [address] Dobby Loom Fixer: Hemant Murphy MD Comp Metabol,Fastingon 10-03 Albumin [Mass/Vol] 4.6 g/dL Normal 3.5-5.2 [facility] Comment on above: Performed By: #### F T3 #### [address] [address] Dobby Loom Fixer: Erik Redding MD #### CMPF #### [facility] [address] [place] [address] Dobby Loom Fixer: Hemant Murphy MD Albumin/Glob Ratio 1.3 Normal 1.0-2.5 [facility] Comment on above: Performed By: #### F T3 #### [address] [place] [address] Dobby Loom Fixer: Erik Redding MD #### CMPF #### [facility] [address] [place], [place] [id number] Dobby Loom Fixer: Hemant Murphy MD Alkaline Phos 91 U/L Normal 35-104 [facility] Comment on above: Performed By: #### F T3 #### [address] [address] Dobby Loom Fixer: Erik Redding MD #### CMPF #### [facility] [address] [place] [address] [place], [place] [id number] Dobby Loom Fixer: Hemant Murphy MD ALT [Catalytic activity/Vol] 39 U/L High 5-33 [facility] Comment on above: Performed By: #### F T3 #### [address] [address] Dobby Loom Fixer: Erik Redding MD #### CMPF #### [facility] [address] [place] [address] [place], [place] [id number] Dobby Loom Fixer: Hemant Murphy MD Anion gap [Moles/Vol] 13 mmol/L Normal 9-17 [facility] Comment on above: Performed By: #### F T3 #### [address] [address] Dobby Loom Fixer: Erik Redding MD #### CMPF #### [facility] [address] [place] [address] Dobby Loom Fixer: Hemant Murphy MD AST [Catalytic activity/Vol] 34 U/L High <32 [facility] Comment on above: Performed By: #### F T3 #### [address] [address] Dobby Loom Fixer: Erik Redding MD #### CMPF #### [address] [place], [place] [id number] Dobby Loom Fixer: Hemant Murphy MD Bilirubin [Mass/Vol] 0.8 mg/dL Normal 0.3-1.2 [facility] Comment on above: Performed By: #### F T3 #### [address] [address] Dobby Loom Fixer: Erik Redding MD #### CMPF #### [facility] [address] [place] [address] [place], [place] [id number] Dobby Loom Fixer: Hemant Murphy MD BUN/CRE Ratio 20 Normal 9-20 [facility] Comment on above: Performed By: #### F T3 #### [address] [address] Dobby Loom Fixer: Erik Redding MD #### CMPF #### [address] [place], [place] [id number] Dobby Loom Fixer: Hemant Murphy MD Calcium [Mass/Vol] 9.2 mg/dL Normal 8.6-10.4 [facility] Comment on above: Performed By: #### F T3 #### [address] [address] Dobby Loom Fixer: Erik Redding MD #### CMPF #### [address] [place], [place] [id number] Dobby Loom Fixer: Hemant Murphy MD Chloride [Moles/Vol] 101 mmol/L Normal 98-107 [facility] Comment on above: Performed By: #### F T3 #### [address] [address] [address] Dobby Loom Fixer: Erik Redding MD #### CMPF #### [address] [place], [place] [id number] Dobby Loom Fixer: Hemant Murphy MD CO2 [Moles/Vol] 22 mmol/L Normal 20-31 [facility] Comment on above: Performed By: #### F T3 #### [facility] [address] [place] [address] Dobby Loom Fixer: Erik eRdding MD #### CMPF #### [facility] [address] [place] [address] Dobby Loom Fixer: Hemant Murphy MD Creatinine [Mass/Vol] 0.54 mg/dL Normal 0.50-0.90 [facility] Comment on above: Performed By: #### F T3 #### [address] [place], [place] [id number] Dobby Loom Fixer: Erik Redding MD #### CMPF #### [facility] [address] [place] [address] Dobby Loom Fixer: Hemant Murphy MD GFR/1.73 sq M.predicted among non-blacks MDRD (S/P/Bld) [Vol rate/Area] mL/min/{1.73_m2} Normal >60 [facility] Comment on above: Result Comment: These results [...] secretion. Performed By: #### F T3 #### [facility] [address] [place] [address] Dobby Loom Fixer: Erik Redding MD #### CMPF #### [facility] [address] [place] [address] Dobby Loom Fixer: Hemant Murphy MD Glucose [Mass/Vol] 88 mg/dL Normal 70-99 [facility] Comment on above: Performed By: #### F T3 #### [address] [address] Dobby Loom Fixer: Erik Redding MD #### CMPF #### [facility] [address] [place] [address] Dr. [place], [place] [id number] Dobby Loom Fixer: Hemant Murphy MD Potassium [Moles/Vol] 4.3 mmol/L Normal 3.7-5.3 [facility] Comment on above: Performed By: #### F T3 #### [address] [address] Dobby Loom Fixer: Erik Redding MD #### CMPF #### [address] [place], [place] [address] Dobby Loom Fixer: Hemant Murphy MD Protein [Mass/Vol] 8.1 g/dL Normal 6.4-8.3 [facility] Comment on above: Performed By: #### F T3 #### [address] [address] Dobby Loom Fixer: Erik Redding MD #### CMPF #### [address] [place], [place] [id number] Dobby Loom Fixer: Hemant Murphy MD Sodium [Moles/Vol] 136 mmol/L Normal 135-144 [facility] Comment on above: Performed By: #### F T3 #### [address] [address] Dobby Loom Fixer: Erik Redding MD #### CMPF #### [address] [place], [place] [id number] Dobby Loom Fixer: Hemant Murphy MD Urea nitrogen [Mass/Vol] 11 mg/dL Normal 6-20 [facility] Comment on above: Performed By: #### F T3 #### [address] [address] Dobby Loom Fixer: Erik Redding MD #### CMPF #### [facility] [address] [place] [address] Dobby Loom Fixer: Hemant Murphy MD [facility] Metabolic Pane l, Fastingon 10-03-2022 Albumin [Mass/Vol] 4.6 g/dL 3.5 - 5.2 g/dL [facility] Albumin/Globulin [Mass ratio] 1.3 {ratio} 1.0 - 2.5 [facility] ALP [Catalytic activity/Vol] 91 U/L 35 - 104 U/L [facility] ALT [Catalytic activity/Vol] 39 U/L High 5 - 33 U/L [facility] Anion gap [Moles/Vol] 13 mmol/L 9 - 17 mmol/L [facility] AST [Catalytic activity/Vol] 34 U/L High NINF - 32 U/L [facility] Bilirubin [Mass/Vol] 0.8 mg/dL 0.3 - 1 .2 mg/dL [facility] Calcium [Mass/Vol] 9.2 mg/dL 8.6 - 10. 4 mg/dL [facility] Chloride [Moles/Vol] 101 mmol/L 98 - 10 7 mmol/L [facility] CO2 [Moles/Vol] 22 mmol/L 20 - 31 mmol/L [facility] Creatinine [Mass/Vol] 0.54 mg/dL 0.50 - 0.90 mg/dL [facility] GFR/1.73 sq M.predicted MDRD (S/P/Bld) [Vol rate/Area] - PINF [facility] Comment on above: These results are [...] [Mass/Vol] 88 mg/dL 70 - 99 mg/dL [facility] Interpretation and review of laboratory results Abnormal [facility] Potassium [Moles/Vol] 4.3 mmol/L 3.7 - 5.3 mmol/L [facility] Protein [Mass/Vol] 8.1 g/dL 6.4 - 8.3 g/dL [facility] Sodium [Moles/Vol] 136 mmol/L 135 - 144 mmol/L [facility] Urea nitrogen [Mass/Vol] 11 mg/dL 6 - 20 mg/dL [facility] Urea nitrogen/Creatinine [Mass ratio] 20 mg/mg 9 - 20 [facility] Lipid Panelon 10-03-2022 Cholesterol [Mass/Vol] 172 mg/dL NINF - 200 mg/dL [facility] Comment on above: Cholesterol Guidelines: <200 Desirable 200-240 Borderline >240 Undesirable Cholesterol in HDL [Mass/Vol] 36 mg/dL Low 40 - PINF mg/dL [facility] [employer] Comment on above: HDL Guidelines: <40 Undesirable 40-59 Borderline >59 Desirable Cholesterol in LDL [Mass/Vol] 79 mg/dL 0 - 130 mg/dL [facility] Comment on above: LDL Guidelines: <100 Desirable 100-129 Near to/above Desirable 130-159 Borderline >159 Undesirable Direct (measured) LDL and calculated LDL are not interchangeable tests. Cholesterol.total/Ch olesterol in HDL [Mass ratio] 4.8 {ratio} NINF - 5 [facility] Interpretation and review of laboratory results Abnormal [facility] Triglyceride [Mass/Vol] 285 mg/dL High NINF - 150 mg/dL [facility] Comment on above: Triglyceride Guidelines: <150 Desirable 150-199 Borderline 200-499 High >499 Very high Based on AHA Guidelines for fasting triglyceride, December 2011. [facility] T3, Freeon 10-03-2022 Free T3 [Mass/Vol] 3.76 pg/mL 2.02 - 4. 43 pg/mL [facility] TSH With Reflex Ft4on 2022 TSH Qn 1.66 m[IU]/L [facility] TSH w/reflex to FT4on 2022 Thyroid Stim. Horm. 1.66 uIU/mL Normal 0.30-5.00 [facility] Comment on above: Performed By: #### T SHX #### [facility] [address] [place] [address] Dobby Loom Fixer: Hemant Murphy MD PAP ACOG PANEL 2: 21 to 29on 12-20-2021 . . Normal [facility] Comment on above: Performed By: #### 4 [id number] #### [facility] [address] [place] [address] Dr. Sachin Pereira Age Gdln ACOG Testing - [facility] Comment on above: Performed By: #### [id number] #### [facility] [address] [place] [address] Dr. Sachin Pereira DIAGNOSIS: Comment [facility] Comment on above: Result Comment: NEGA TIVE FOR INTRAEPITHELIAL LESION OR MALIGNANCY. Performed By: #### 4 [id number] #### [facility] [address] [place] [address] Dr. Sachin Pereira Methodology: Comment [facility] Comment on above: Result Comment: This liquid based ThinPrep(R) pap test was screened with the use of an image guided system. Performed By: #### 4 [id number] #### [facility] [address] [place] [address] Dr. Sachin Pereira Note: Comment [facility] Comment on above: Result Comment: The Pap smear is a screening test designed to aid in the detection of premalignant and malignant conditions of the uterine cervix. It is not a diagnostic procedure and should not be used as the sole means of detecting cervical cancer. Both false-positive and false-negative reports do occur. . Performed By: #### 4 [id number] #### [facility] [address] [place] [address] Dr. Sachin Pereira Performed by: Comment Normal [facility] Comment on above: Result Comment: Collette Holliday, Special Events Director (ASCP) Performed By: #### 4 [id number] #### [facility] [address] [place] [address] Dr. Sachin Pereira Reflex Criteria: Comment Normal [facility] Comment on above: Result Comment: The HPV DNA reflex criteria were not met with this specimen result therefore, no HPV testing was performed. . Performed By: #### 4 [id number] #### [facility] [address] [address] [address] Sachin Pereira Specimen adequacy: Comment Normal [facility] Comment on above: Result Comment: Sati sfactory for evaluation. Endocervical and/or squamous metaplastic cells (endocervical component) are present. Performed By: #### 4 [id number] #### [facility] [address] [address] [address] Sachin Pereira Vital Signs Date Time Vital Sign Value Performing Clinician Faci lity 04-09-2024 11:19-0500 Body mass index (BMI) [Ratio] 45.69 kg/m2 Jesika MARIE Work Phone: [facility] 04-09-2024 11:19-0500 Body weight 140.34 kg Jesika MARIE Work Phone: [facility] 04-09-2024 11:19-0500 Diastolic blood pressure 84 mm[Hg] Jesika MARIE Work Phone: [facility] 04-09-2024 11:19-0500 Systolic blood pressure 144 mm[Hg] Jesika MARIE Work Phone: [facility] 03-19-2024 11:03-0500 Body mass index (BMI) [Ratio] 46.04 kg/m2 Gilles Regis DO Work Phone: [facility] 03-19-2024 11:03-0500 Body weight 141.43 kg Gilles Regis DO Work Phone: [facility] 03-19-2024 11:03-0500 Diastolic blood pressure 90 mm[Hg] Gilles Regis DO Work Phone: [facility] 03-19-2024 11:03-0500 Systolic blood pressure 148 mm[Hg] Gilles Regis DO Work Phone: [facility] 02-20-2024 10:16-0500 Body mass index (BMI) [Ratio] 44.45 kg/m2 Jesika Oviedoduong MARIE Work Phone: [facility] 02-20-2024 10:16-0500 Body weight 136.53 kg Jesika Oviedoey PA Work Phone: [facility] 02-20-2024 10:16-0500 Diastolic blood pressure 84 mm[Hg] Jesika Oviedoey PA Work Phone: [facility] 02-20-2024 10:16-0500 Systolic blood pressure 124 mm[Hg] Jesika Mcknight PA Work Phone: [facility] 01-23-2024 11:02-0400 Body mass index (BMI) [Ratio] 44.3 kg/m2 Gilles Regis DO Work Phone: [facility] 01-23-2024 11:02-0400 Body weight 136.08 kg Gilles Regis DO Work Phone: [facility] 01-23-2024 11:02-0400 Diastolic blood pressure 82 mm[Hg] Gilles Regis DO Work Phone: [facility] 01-23-2024 11:02-0400 Systolic blood pressure 120 mm[Hg] Gilles Regis DO Work Phone: [facility] 12-26-2023 09:31-0400 Body mass index (BMI) [Ratio] 44.01 kg/m2 Gilles Regis DO Work Phone: [facility] 12-26-2023 09:31-0400 Body weight 135.17 kg Gilles Regis DO Work Phone: [facility] 12-26-2023 09:31-0400 Diastolic blood pressure 72 mm[Hg] Gilles Regis DO Work Phone: [facility] 12-26-2023 09:31-0400 Systolic blood pressure 120 mm[Hg] Gilles Regis DO Work Phone: [facility] 11-28-2023 08:56-0400 Body mass index (BMI) [Ratio] 44.08 kg/m2 Gilles Regis DO Work Phone: [facility] 11-28-2023 08:56-0400 Body weight 135.38 kg Gilles Regis DO Work Phone: [facility] 11-28-2023 08:56-0400 Diastolic blood pressure 70 mm[Hg] Gilles Regis DO Work Phone: [facility] 11-28-2023 08:56-0400 Systolic blood pressure 120 mm[Hg] Gilles Regis DO Work Phone: [facility] Encounters Encounter Date Encounter Type Care Provider Facility Start: 04-13-2024 End: 04-13-2024 Clinisync Result Encounter Jesika MARIE Work Phone: [facility] External Department Unsolicited Start: 04-13-2024 End: 04-13-2024 Clinisync Result Encounter Jesika MARIE Work Phone: [facility] External Department Unsolicited Start: 04-10-2024 End: 04-10-2024 Clinisync Result Encounter Jesika MARIE Work Phone: [facility] External Department Unsolicited Start: 04-10-2024 End: 04-10-2024 Clinisync Result Encounter Jesika MARIE Work Phone: [facility] External Department Unsolicited Start: 04-09-2024 End: 04-09-2024 flow sheet Jesika MARIE Work Phone: [facility] Comment on above: Third trimester preg chanel; 31 weeks gestation of ; induced hypertension, antepartum; Gestational proteinuria in third trimester; Gestational hypertension without significant proteinuria in third trimester Start: 04-09-2024 End: 04-09-2024 ambulatory JESIKA MCKNIGHT Not Available Start: 03-19-2024 End: 03-19-2024 Bamboo flowsheet Gilles Regis DO Work Phone: [facility] Start: 03-19-2024 End: 03-19-2024 Bamboo flowsheet Gilles Regis DO Work Phone: [facility] Start: 03-19-2024 End: 03-19-2024 flow [...] 02-20-2024 Bamboo flowsheet Jesika MARIE Work Phone: [facility] Start: 02-20-2024 End: 02-20-2024 Bamboo flowsheet Jesika MARIE Work Phone: [facility] Start: 02-20-2024 End: 02-20-2024 [...] Bamboo flowsheet Gilles Regis DO Work Phone: [facility] Start: 01-23-2024 End: 01-23-2024 flow sheet Gilles Regis DO Work Phone: [facility] Comment on above: 20 [...] encounter procedure Gilles Regis DO Work Phone: [facility] Start: 12-26-2023 End: 12-26-2023 Periodic preventive med est patient 18-39 yrs Gilles Regis DO Work Phone: [facility] Comment on above: Second [...] Unsolicited Start: 11-08-2023 End: 11-08-2023 ambulatory GILLES REGIS Not Available Start: 10-03-2022 End: 10-04-2022 ambulatory [place] MICHAEL [facility] Start: 10-03-2022 End: 10-03-2022 Subsequent hospital visit by physician Ny Michael FELT WASHING MACHINE TENDER - MACHINE RIGGER [facility] Phone: [facility] Comment on above: Screening for hypoth yroidism; Diabetes mellitus screening; Lipid screening Start: 12-14-2021 End: 12-14-[address] GILLES STACY Facility:[facility] Start: 02-10-2021 ambulatory FID[place]IO [place] y:H1 Procedures Date Procedure Procedure Detail Performing Clinician Start: 04-13-2024 [facility] TOTAL PROTEIN 24 HOUR URINE Jesika MARIE Work Phone: Start: 04-10-2024 ALL CBC WITH AUTO DIFF [...] Assay of triiodothyronine t3 free Ny Michael FELT WASHING MACHINE TENDER - [facility] Work Phone: Start: 10-03-2022 Lipid panel Ny Michael FELT WASHING MACHINE TENDER - MACHINE RIGGER Work Phone: Plan of Treatment Date Care Activity Detail Author Start: 04-23-2024 End: 04-23-2024 Patient encounter procedure 04/23/2024 8:30 AM EST Routine [facility] [address] [place] [id number] Gilles Stacy, DO [address] [place] [address] [facility] Start: 04-09-2024 End: 04-09-2025 Alanine aminotransferase [Enzymatic activity/volume] in Serum or Plasma ALT Lab Routine induced hypertension, antepartum Expected: 04/09/2024 (Approximate), Expires: 04/09/2025 [facility] Comment on above: Expected: 04/09/2024 (Approximate), Expires: 04/09/2025 Start: 04-09-2024 End: 04-09-2025 Aspartate aminotransferase [Enzymatic activity/volume] in Serum or Plasma AST Lab Routine induced hypertension, antepartum Expected: 04/09/2024 (Approximate), Expires: 04/09/2025 [facility] Comment on above: Expected: 04/09/2024 (Approximate), Expires: 04/09/2025 Start: 04-09-2024 End: 04-09-2025 CBC W Auto Differential panel - Blood CBC and differential Lab Routine induced hypertension, antepartum Expected: 04/09/2024 (Approximate), Expires: 04/09/2025 [facility] Comment on above: Expected: 04/09/2024 (Approximate), Expires: 04/09/2025 Start: 04-09-2024 End: 04-09-2025 Creatinine [Mass/volume] in Serum or Plasma Creatinine Lab Routine induced hypertension, antepartum Expected: 04/09/2024 (Approximate), Expires: 04/09/2025 [facility] Work Phone: Comment on above: Expected: [...] induced hypertension, antepartum Expected: 04/09/2024, Expires: 04/09/2025 [facility] Comment on above: Expected: 04/09/2024 , Expires: 04/09/2025 Start: 04-09-2024 End: 04-09-2025 Urate [Mass/volume] in Serum or Plasma Uric acid Lab Routine induced hypertension, antepartum Expected: 04/09/2024 (Approximate), Expires: 04/09/2025 [facility] Comment on above: Expected: 04/09/2024 (Approximate), Expires: 04/09/2025 Start: 04-09-2024 End: 04-09-2025 Urea nitrogen [Mass/volume] in Serum or Plasma BUN Lab Routine induced hypertension, antepartum Expected: 04/09/2024, Expires: 04/09/2025 [facility] Comment on above: Expected: 04/09/2024 , Expires: 04/09/2025 Start: 04-09-2024 End: 04-09-2024 Patient encounter procedure 04/09/2024 11:20 AM EST Routine [facility] [address] [place] [phone] Jesika Mcknight PA [address] [place] [address] [facility] Start: 04-09-2024 End: 04-09-2024 Professional / ancillary services management 04/09/2024 10:30 AM EST Ancillary Procedure [facility] [address] [place] [phone] [facility] Start: 03-19-2024 End: 03-19-2025 [...] control unspecified Expected: 03/19/2024 (Approximate), Expires: 03/19/2025 [facility] Comment on above: Expected: 03/19/2024 (Approximate), Expires: 03/19/2025 Start: 03-19-2024 End: 03-19-2024 Patient encounter procedure [facility] Comment on above: Arrived Start: 02-20-2024 End: 02-19-2025 CBC panel - Blood by Automated count CBC Lab Routine Diabetes mellitus screening Expected: 02/20/2024 (Approximate), Expires: 02/19/2025 [facility] Work Phone: Comment on above: Expected: 02/20/2024 (Approximate), Expires: 02/19/2025 Start: 02-20-2024 End: 02-19-2025 Measurement of glucose 1 hour after glucose challenge for glucose tolerance test Glucose tolerance, 1 hour Lab Routine Diabetes mellitus screening Expected: 02/20/2024 (Approximate), Expires: 02/19/2025 [facility] Comment on above: Expected: 02/20/2024 (Approximate), Expires: 02/19/2025 Start: 02-20-2024 End: 02-20-2024 Patient encounter procedure [facility] Comment on above: Arrived Start: 01-23-2024 End: 01-23-2024 Patient encounter procedure [facility] Comment on above: Arrived Start: 01-23-2024 End: 01-23-2024 Professional / ancillary services management 01/23/2024 10:00 AM EDT Ancillary Procedure [facility] [address] [place] [phone] [facility] Start: 12-26-2023 End: 01-25-2024 Alpha fetoprotein, maternal Alpha fetoprotein, maternal Lab Routine Need for maternal serum alpha-protein (MSAFP) screening Expected: 12/26/2023 (Approximate), Expires: 01/25/2024 [facility] Comment on above: Expected: 12/26/2023 (Approximate), Expires: 01/25/2024 Start: 12-26-2023 End: 12-25-2024 US for US OB ANATOMY SINGLE W US OB CERVICAL LENGTH Imaging Routine Screening, , for anatomic survey Expected: 12/26/2023 (Approximate), Expires: 12/25/2024 [facility] Comment on above: Expected: 12/26/2023 (Approximate), Expires: 12/25/2024 Start: 12-26-2023 End: 12-26-2023 Patient encounter procedure [facility] Comment on above: Arrived Start: 12-01-2023 Influenza vaccination Influenza Vacc ine (#1) [facility] Start: 11-28-2023 End: 11-27-2024 Measurement of glucose 1 hour after glucose challenge for glucose tolerance test Glucose tolerance, 1 hour Lab Routine Diabetes mellitus screening Expected: 11/28/2023 (Approximate), Expires: 11/27/2024 [facility] Work Phone: Comment on above: Expected: 11/28/2023 (Approximate), Expires: 11/27/2024 Start: 11-28-2023 End: 11-28-2023 Patient encounter procedure [facility] Comment on above: Arrived Start: 10-09-2023 End: 10-09-2023 Patient encounter procedure 10/09/2023 Office Visit Primary Care Ny Michael, MIKAYLA - MACHINE RIGGER [address] [place] [address] [facility] Start: 10-02-2023 Depression Screen Depression Screen [facility] Start: 10-02-2023 DTaP/Tdap/Td vaccine (1 - Tdap) DTaP/Tdap/Td vaccine (1 - Tdap) [facility] Comment on above: Postponed from 07/16 (Patient Refused) Start: 10-02-2023 Hepatitis C screening Hepatitis C sc reen [facility] Comment on above: Postponed from 07/16 (Patient Refused) Start: 10-02-2023 HIV screening HIV screen [facility] Comment on above: Postponed from 07/16 (Patient Refused) Start: 10-02-2023 HPV vaccine (1 - 2-d ose series) HPV vaccine (1 - 2-dose series) [facility] Comment on above: Postponed from 07/16 (Patient Refused) Start: 10-30-2022 Influenza vaccination Flu vaccine (# 1) [facility] Start: 05-01-2021 COVID-19 Vaccine (2 - Booster for Kinga series) COVID-19 Vaccine (2 - Booster for Kinga series) [facility] Start: 2017 Screening for malign ant neoplasm of cervix Pap smear [facility] CHLAMYDIA TRACHOMATI S (GENITO/STI) CHLAMYDIA TRACHOMATIS (GENITO/STI) Lab Routine Exposure to STD Ordered: 12/26/2023 [facility] Comment on above: Ordered: 12/26/2023 Cytology Cervical or vaginal smear or scraping study Pap Smear Pathology and Cytology Routine Well woman exam with routine gynecological exam Ordered: 12/26/2023 [facility] Comment on above: Ordered: 12/26/2023 Neisseria gonorrhoea e DNA [Presence] in Unspecified specimen by SHANNA with probe detection Neisseria gonorrhea DNA probe, direct Lab Routine Exposure to STD Ordered: 12/26/2023 [facility] Comment on above: Ordered: 12/26/2023 SURESWAB(R) ADVANCED VAGINITIS PLUS, TMA SURESWAB(R) ADVANCED VAGINITIS PLUS, TMA Pathology and Cytology Routine Exposure to STD Ordered: 12/26/2023 [facility] Work Phone: Comment on above: Ordered: 12/26/2023 Immunizations Immunization Date Immunization Notes Care Provider Fa andrés 03-06-2021 COVID-19, J&J, (age 18y+), IM, 0.5 mL Ny Michael FELT WASHING MACHINE TENDER - MACHINE RIGGER Work Phone: [facility] Payers Date Payer Category Payer Private Health Insurance [id number] 2022 Private Health Insurance [id number] 1996 Unknown [id number] 2.16.84 [id number] 1996 Unknown [id number] 2.16.84 [id number] 1996 Unknown [id number] 2.16.8 [id number] 1996 Unknown [id number] 2.16.84 [id number] 1996 Unknown [id number] 2.16.84 [id number] 1996 Unknown [id number] 2.16.84 [id number] 1996 Unknown [id number] 2.16.84 [id number] 1996 Unknown [id number] 2.16.84 [id number] 1996 Unknown [id number] 2.16.84 [id number] 1996 Unknown [id number] 2.16.84 [id number] 1996 Unknown [id number] 2.16.84 [id number] 1959 Self-pay [id number] 1959 Unknown [id number] Social History Date Type Detail Facility Start: 10-01-2022 Tobacco smoking status [facility] Ex-smoker [facility] End: 05-30-2021 History of tobacco use Current smoker [facility] End: 05-30-2021 History of tobacco use Cigarette Smoker [facility] History of tobacco use Tobacco U se Types Packs/Day Years Used Date Smoking Tobacco: Former Cigarettes 0.5 5 Quit: 05/2021 E-Cigarettes Smokeless Tobacco: Never [facility] Start: 10-01-2022 Cigarettes smoked current (pack per day) - Reported 0.5 [facility] Start: 10-01-2022 Tobacco use and exposure Smokeless tobacco non-user [facility] Start: 10-01-2022 Alcohol intake Ex-drinker (finding) [facility] Start: 10-01-2022 History SDOH Physical Activity DPW 3 [facility] Start: 10-01-2022 History SDOH Physical Activity MPS 6 [facility] Start: 10-01-2022 History SDOH Financial 5 [facility] Start: 10-01-2022 History SDOH Food Worry 1 [facility] Start: 10-01-2022 History SDOH Transport Non-Med 2 [facility] Start: 10-01-2022 Alcohol Comment Socially [facility] Start: 1996 Sex Assigned At Female [facility] Tobacco smoking stat [facility] Tobacco smoking consumption unknown [facility] Start: 09-17-2023 [facility] Start: 12-11-2022 Gender identity Identifies as female gender (finding) [facility] Start: 12-11-2022 Sexual orientation Heterosexual (finding) [facility] Medical Equipment Procedure Code Equipment Code Equipment Origin al Text Equipment Identifier Dates 1 strip by In Vi tro route Daily Use in the morning prior to breakfast, 1 hour after each meal for a total of 4times daily. [id number] Start: 03-16-2024 End: 04-15-2024 1 each by In Vit ro route Daily Use to check FSBS four times daily [id number] Start: 03-16-2024 End: 04-15-2024 Goals Date Patient [...] mg, Oral, Daily Blood Glucose Monitoring Suppl (OSIX Glucometer) w/Device kit 1 kit, Does not [...] Parker documented in this encounter [facility] 03-19-2024 History of Presen t illness [...] mg, Oral, Daily Blood Glucose Monitoring Suppl (OSIX Glucometer) w/Device kit 1 kit, Does not [...] DO documented in this encounter [facility] 02-20-2024 History of Presen t illness [...] nursing note reviewed. Exam conducted with a pyrometer mechanic present. Vitals: Estimated body mass index is [...] hour glucose order to have done at [facility]. Orders Placed This Encounter Procedures CBC Glucose tolerance, 1 hour POCT urinalysis dipstick manually resulted Follow Up: Patient is to return to office in 2 week for routine OB appointment. Documented by Giovana Azar MA on behalf of: CYNTHIA Parker documented in this encounter [facility] 01-23-2024 History of Presen t illness [...] nursing note reviewed. Exam conducted with a pyrometer mechanic present. Vitals: Estimated body mass index is [...] DO documented in this encounter [facility] 12-26-2023 History of Presen t illness [...] nursing note reviewed. Exam conducted with a pyrometer mechanic present. Vitals: Estimated body mass index is [...] DO documented in this encounter [facility] 11-28-2023 History of Presen t illness [...] nursing note reviewed. Exam conducted with a pyrometer mechanic present. Vitals: Estimated body mass index is [...] or undercooked meat, and stay away from [facility]. Patient has been consulted regarding any further [...] Gilles Stacy DO documented in this encounter [facility] Healthcare Evaluation note Diagnosis Screening for hypothyroidism Screening for thyroid disorder Diabetes mellitus screening Screening for diabetes mellitus Lipid screening Screening for lipoid disorders documented in this encounter [facility] Diagnosis 20 weeks gestation of Second trimester state, incidental documented in this encounter [facility]* Diagnosis Second trimester state, incidental 24 weeks gestation of Diabetes mellitus screening Screening for diabetes mellitus documented in this encounter [facility] HealthcareEvaluation note* Diagnosis 12 weeks gestation of Diabetes mellitus screening Screening for diabetes mellitus documented in this encounter [facility] HealthcareEvaluation note* Diagnosis Second trimester state, incidental Well woman exam with routine gynecological exam Routine gynecological examination Exposure to STD Need for maternal serum alpha-protein (MSAFP) screening Screening, , for anatomic survey Encounter for anatomic survey documented in this encounter [facility] HealthcareEvaluation note* Diagnosis 28 weeks gestation of Third trimester state, incidental Gestational diabetes mellitus (GDM), antepartum, gestational diabetes method of control unspecified documented in this encounter [facility]* Diagnosis Third trimester state, incidental 31 weeks gestation of induced hypertension, antepartum Transient hypertension of , antepartum Gestational proteinuria in third trimester Gestational hypertension without significant proteinuria in third trimester documented in this encounter [facility] Healthcare Summary Purpose Family History No Family [...] pital DATE CREATED AUTHOR AUTHOR'S ORGANIZ ATION 04/14/2024 [facility] EPIC Care Teams (unrecognized sec tion and content) Extract Mixer Relationship Specialty Start Date End Date Ny Michael, [employer] MACHINE TENDER - MACHINE RIGGER [address] [place] [address] PCP - General Certified Nurse Practitioner 10/01/22 [...] BE BASED ON THE PRIMARY CLINICAL RECORDS. [employer] provides no warranty or guarantee of the accuracy or completeness of information in this document.
[2024-04-16 11:13] VITALS: BP 143/79; PULSE 82
== END 2024-04-16 11:39 | disposition home or self-care (01) ==
LOC: FBCO 01:08 → FBC 10:38
PROVIDERS: Visit Provider Obstetrics & Gynecology
DX: O24.419 Gestational diabetes mellitus in pregnancy, unspecified control (principal); Z3A.32 32 weeks gestation of pregnancy
CPT/HCPCS: 76818

== ENCOUNTER 2024-04-20 04:08 | Outpatient (OUT) | payer OTHER, SELFPAY ==
--- OUTSIDE RECORDS SUMMARY | 2024-04-20 04:12 | XMS_ITS | CCD ---
Author Organization [facility] Care Team Providers Care Aircraft Detail Draftsperson Name Role Phone FIDENCIO ANDRES Primary Care Unavailable FIDENCIO ANDRES Attending Unavailable FIDENCIO ANDRES Admitting Unavailable REGIS, DR CAMPOVERDE Admitting Unavailable REGIS, DR CAMPOVERDE Consulting Unavailable REGIS, DR CAMPOVERDE Attending Unavailable FIDENCIO ANDRES Primary Care Unavailable Stephania Ny FELICIANO CNP Primary Care [facility]ly [facility] [place] MICHAEL Referring Unavailable [place] [...] Interpretation and review of laboratory results Abnormal [facility] Protein (U) [Mass/Vol] 21.4 mg/dL High NINF - 11.9 mg/dL [facility] TBH TOTAL PROTEIN 24 HOUR URINE 310.[address] [facility] TOTAL VOLUME 24 HOUR URINE 1450 mL/24hr [facility] Healthcar e ALL CBC WITH AUTO DIFFon BASOPHILS ABSOLUTE AUTO 0.1 [facility] Basophils/100 WBC (Bld) 0.5 % 0.2 - 2.0 % [facility] Eosinophils/100 WBC (Bld) 1.4 % 0.9 - 7.0 % [facility] Erythrocyte distribution width (RBC) [Ratio] 15.1 % High 11.0 - 15.0 % [facility] Hematocrit (Bld) [Volume fraction] 36.2 % 36.0 - 48.0 % [facility] Hem[facility] (Bld) [Mass/Vol] 11.5 g/dL Low 12.0 - 16.0 g/dL [facility] IMMATURE GRANULOCYTES ABS AUTO 0.05 High [facility] Immature granulocytes/100 WBC (Bld) 0.3 % 0.0 - 0.5 % [facility] Interpretation and review of laboratory results Abnormal [facility] LYMPHOCYTES ABSOLUTE AUTO 2.9 [facility] Lymphocytes/100 WBC (Bld) 19.5 % Low 20.5 - 60.0 % [facility] MCH (RBC) [Entitic mass] 25 pg Low 26.7 - 34.0 pg [facility] MCHC (RBC) [Mass/Vol] 31.8 g/dL 29.9 - 35.2 g/dL [facility] MCV (RBC) [Entitic vol] 78.7 fL Low 81.0 - 99.0 fL [facility] MONOCYTES ABSOLUTE AUTO 1.2 High [facility] Healthcare Monocytes/100 WBC (Bld) 7.6 % 1.7 [...] 2177 cm / 4 lbs, 12 oz (4065-0025 gm) [place] Normal: 1812 gm (3465-2732 gm) [place] Wt%: >97% for 31.3 wks [...] UA Negative Negative - 4(70) +++ mg/dL [facility] Blood, UA Negative Negative - 50 Horacio/mcL [facility] Healthcare Clarity, UA Clear [facility] Color, UA Yellow [facility] Glucose, UA Negative Negative - 1999(110) ++++ mg/dL [facility] Interpretation and review of laboratory results Abnormal [facility] Ketones, UA Negative Negative - 160(16) ++++ mg/dL [facility] Leukocytes, UA Negative Negative - 500+++ Nica/mcL [facility] Nitrite, UA Negative Negative - Positive [facility] pH, UA 6.5 5 - 9 [facility] Healthcar e Protein, UA Positive Negative - 1999(20) ++++ mg/dL [facility] Spec Grav, UA 1.03 1 - 1.03 [facility] Urobilinogen, UA 1.0 0.2 - 12 mg/dL [facility] Urinalysis macro (dipstick) panel (U)on 03-19-2024 Bilirubin, UA Negative Negative - 4(70) +++ mg/dL [facility] Blood, UA Negative Negative - 50 Horacio/mcL [facility] Healthcare Clarity, UA Clear [facility] Healthca re Color, UA Straw [facility] Healthcar e Glucose, UA Negative Negative - 1999(110) ++++ mg/dL [facility] Interpretation and review of laboratory results Abnormal [facility] Ketones, UA Negative Negative - 160(16) ++++ mg/dL [facility] Leukocytes, UA Trace Negative - 500+++ Nica/mcL [facility] Nitrite, UA Negative Negative - Positive [facility] pH, UA 6 5 - 9 [facility] Healthcar e Protein, UA Negative Negative - 1999(20) ++++ mg/dL [facility] Spec Grav, UA 1.03 1 - 1.03 [facility] Urobilinogen, UA 0.2 0.2 - 12 mg/dL [facility] GLUCOSE TOLERANCE 3 HOURon 1 05-13-2023 GLUCOSE TOLERANCE 3 HOUR High mg/dL [facility] Comment on above: GLU FAST 108H (<95) Col: 03/12/24 0757 GLU 1HR 190H (<180) Col: 03/12/24 0900 GLU 2HR 172H (<155) Col: 03/12/24 1000 GLU 3HR 121 (<140) Col: 03/12/24 1100 Interpretation and review of laboratory results Abnormal [facility] Healthcare [facility] ALL CBC WITH AUTO DIFFon BASOPHILS ABSOLUTE AUTO 0.1 [facility] Basophils/100 WBC (Bld) 0.5 % 0.2 - 2.0 % [facility] Eosinophils/100 WBC (Bld) 2.4 % 0.9 - 7.0 % [facility] Erythrocyte distribution width (RBC) [Ratio] 14.7 % 11.0 - 15.0 % [facility] Hematocrit (Bld) [Volume fraction] 36.9 % 36.0 - 48.0 % [facility] Healthcar e Hemoglobin (Bld) [Mass/Vol] 11.7 g/dL Low 12.0 - 16.0 g/dL [facility] IMMATURE GRANULOCYTES ABS AUTO 0.07 High [facility] Immature granulocytes/100 WBC (Bld) 0.5 % 0.0 - 0.5 % [facility] Interpretation and review of laboratory results Abnormal [facility] LYMPHOCYTES ABSOLUTE AUTO 3.3 [facility] Lymphocytes/100 WBC (Bld) 22.6 % 20.5 - 60.0 % [facility] MCH (RBC) [Entitic mass] 25.6 pg Low 26.7 - 34.0 pg [facility] MCHC (RBC) [Mass/Vol] 31.7 g/dL 29.9 - 35.2 g/dL [facility] MCV (RBC) [Entitic vol] 80.7 fL Low 81.0 - 99.0 fL [facility] MONOCYTES ABSOLUTE AUTO 1 High [facility] Monocytes/100 WBC (Bld) 6.7 % 1.7 - 12.0 % [facility] NEUTROPHILS ABSOLUTE AUTO 9.7 High [facility] Neutrophils/100 WBC (Bld) 67.3 % 43.0 - 75.0 % [facility] Platelet mean volume (Bld) [Entitic vol] 10.4 fL 9.5 - 13.5 fL [facility] EO # 0.3 [facility] PLT 339 [facility] RBC 4.57 [facility] WBC 14.4 High [facility] Urinalysis macro (dipstick) panel (U)on 02-20-2024 Bilirubin, UA Negative Negative - 4(70) +++ mg/dL [facility] Healthcare Blood, UA Negative Negative - 50 Horacio/mcL [facility] Healthcare Clarity, UA Clear [facility] Color, UA Yellow [facility] Glucose, UA Negative Negative - 1999(110) ++++ mg/dL [facility] Interpretation and review of laboratory results Abnormal [facility] Ketones, UA Negative Negative - 160(16) ++++ mg/dL [facility] Healthcare Leukocytes, UA Trace Negative - 500+++ Nica/mcL [facility] Healthcare Nitrite, UA Negative Negative - Positive [facility] pH, UA 7 5 - 9 [facility] Healthcar e Protein, UA Negative Negative - 1999(20) ++++ mg/dL [facility] Healthcare Spec Grav, UA 1.025 1 - 1.03 [facility] care Urobilinogen, UA 0.2 0.2 - 12 mg/dL [facility] Urinalysis macro (dipstick) panel (U)on 01-23-2024 Bilirubin, UA Negative Negative - 4(70) +++ mg/dL [facility] Blood, UA Negative Negative - 50 Horacio/mcL [facility] Healthcare Clarity, UA Clear [facility] Color, UA Yellow [facility] Healthcar e Glucose, UA Negative Negative - 1999(110) ++++ mg/dL [facility] Interpretation and review of laboratory results Abnormal [facility] Ketones, UA Negative Negative - 160(16) ++++ mg/dL [facility] Healthcare Leukocytes, UA Trace Negative - 500+++ Nica/mcL [facility] Healthcare Nitrite, UA Negative Negative - Positive [facility] pH, UA 6.5 5 - 9 [facility] Healthcar e Protein, UA Negative Negative - 1999(20) ++++ mg/dL [facility] Healthcare Spec Grav, UA 1.015 1 - 1.03 [facility] Urobilinogen, UA 0.2 0.2 - 12 mg/dL [facility] IGP,APTIMA HPV,AGE GDLNon AGE GDLN ACOG TESTING Note . [facility] Comment on above: TESTS RESULT FLAG UN ITS REF RANGE LAB Clinician Provided Cytology Information Source.............Cervix Other.............. No. of containers..01 ThinPrep Vial Age Raul RODARTE Micaela... FLAG LEGEND: L-Low Normal,H-High Normal,LL-Alert Low,HH-Alert High <-Panic Low,>-Panic High,A-Abnormal,AA-Critical Abnormal Performed at: 01 =[facility] [address] [place] [address] Vania Cabezas MD, IGP, RFX APTIMA HPV ASCU Note . [facility] Comment on above: TESTS RESULT FLAG UN ITS REF RANGE LAB DIAGNOSIS: 02 NEGATIVE FOR INTRAEPITHELIAL LESION OR MALIGNANCY. Specimen adequacy: 02 Satisfactory for evaluation. Endocervical and/or squamous metaplastic cells (endocervical component) are present. Performed by: Riley Franklin Vice President Of Instruction ([facility]) . 02 Note: Note 02 The [...] <-Panic Low,>-Panic High,A-Abnormal,AA-Critical Abnormal Performed at: [address] [id number] Vania Cabezas MD, Performed at: =G - [facility] [id number] Superintendent Police: Vania Cabezas MD, Phone: [phone] Performed at: [facility] [address] [id number] Superintendent Police: Vania Cabezas MD, Phone: [phone] SPATULA-ALONE CERVIX [facility] Urinalysis macro (dipstick) panel (U)on 12-26-2023 Bilirubin, UA Negative Negative - 4(70) +++ mg/dL [facility] Blood, UA Negative Negative - 50 Horacio/mcL [facility] Clarity, UA Clear [facility] [place] re Color, UA Yellow [facility] [employer] e Glucose, UA Negative Negative - 2000(110) ++++ mg/dL [facility] Interpretation and review of laboratory results Normal [facility] Ketones, UA Positive Negative - 160(16) ++++ mg/dL [facility] Comment on above: trace Leukocytes, UA Positive Negative - 500+++ Nica/mcL [facility] Comment on above: small Nitrite, UA Negative Negative - Positive [facility] pH, UA 6.0 5 - 9 [facility] Healthcar e Protein, UA Negative Negative - 1999(20) ++++ mg/dL [facility] Spec Grav, UA 1.015 1 - 1.03 [facility] Urobilinogen, UA 0.2 0.2 - 12 mg/dL [facility] GLUCOSE 1 HOURon 12-11-2023 Glucose [Mass/Vol] 131 mg/dL High NINF - 13 0 mg/dL [facility] Interpretation and review of laboratory results Abnormal [facility] e No Panel Informationon 11-28 STAPHYLOCOCCUS EPIDERMIDIS, HAEMOLYTICUS, LUGDUNENSIS, SAPROPHYTICUS (URINA 0.000 [facility] STAPHYLOCOCCUS EPIDERMIDIS, HAEMOLYTICUS, LUGDUNENSIS, SAPROPHYTICUS (URINA Not detected [facility] URINARY TRACT INFECTION (HTR X)on 11-29-2023 ACINETOBACTER BAUMANII 0.000 [facility] ACINETOBACTER BAUMANII Not detected [facility] CHRISTIAN ALBICANS, PARAPSILOSIS, TROPICALIS 0.000 [facility] CHRISTIAN ALBICANS, PARAPSILOSIS, TROPICALIS Not detected [facility] CHRISTIAN GLABRATA 0.000 [facility] ltare CHRISTIAN GLABRATA Not detected [facility] CHRISTIAN KRUSEI 0.000 [facility] hcare CHRISTIAN KRUSEI Not detected [facility] CITROBACTER FREUNDII 0.000 [facility] CITROBACTER FREUNDII Not detected NO [facility] ENTEROBACTER AEROGENES, CLOACAE 0.000 [facility] re ENTEROBACTER AEROGENES, CLOACAE Not detected [facility] re ENTEROCOCCUS FAECALIS, FAECIUM 0.000 [facility] e ENTEROCOCCUS FAECALIS, FAECIUM Not detected [facility] e ESCHERICHIA COLI 0.000 [facility] ESCHERICHIA COLI Not detected [facility] H ealthcare KLEBSIELLA PNEUMONIAE, OXYTOCA 0.000 [facility] are KLEBSIELLA PNEUMONIAE, OXYTOCA Not detected [facility] are MORGANELLA MORGANII 0.000 [facility] MORGANELLA MORGANII Not detected [facility] PROTEUS MIRABILIS, VULGARIS 0.000 [facility] PROTEUS MIRABILIS, VULGARIS Not detected [facility] PSEUDOMONAS AERUGINOSA 0.000 [facility] PSEUDOMONAS AERUGINOSA Not detected [facility] SERRATIA MARCESCENS 0.000 [facility] SERRATIA MARCESCENS Not detected [facility] STAPHYLOCOCCUS AUREUS 0.000 [facility] STAPHYLOCOCCUS AUREUS Not detected [facility] STREPTOCOCCUS AGALACTIAE (GROUP B STREP) 0.000 [facility] STREPTOCOCCUS AGALACTIAE (GROUP B STREP) Not detected [facility] STREPTOCOCCUS PYOGENES (GROUP A STREP) 0.000 [facility] STREPTOCOCCUS PYOGENES (GROUP A STREP) Not detected [facility] Urinalysis macro (dipstick) panel (U)on 11-28-2023 Bilirubin, UA Positive Negative - 4(70) +++ mg/dL [facility] Comment on above: small Blood, UA Negative Negative - 50 Horacio/mcL [facility] Clarity, UA Clear [facility] re Color, UA Yellow [facility] Glucose, UA Negative Negative - 1999(110) ++++ mg/dL [facility] Interpretation and review of laboratory results Abnormal [facility] Ketones, UA Negative Negative - 160(16) ++++ mg/dL [facility] Leukocytes, UA Trace Negative - 500+++ Nica/mcL [facility] Nitrite, UA Negative Negative - Positive [facility] pH, UA 7.0 5 - 9 [facility] e Protein, UA Trace Negative - 1999(20) ++++ mg/dL [facility] Spec Grav, UA 1.025 1 - 1.03 [facility] Urobilinogen, UA 0.2 0.2 - 12 mg/dL [facility] Healthcar e ALL CBC WITH AUTO DIFFon BASOPHILS ABSOLUTE AUTO 0.1 [facility] Basophils/100 WBC (Bld) 0.4 % 0.2 - 2.0 % [facility] Eosinophils/100 WBC (Bld) 1.5 % 0.9 - 7.0 % [facility] Erythrocyte distribution width (RBC) [Ratio] 14.8 % 11.0 - 15.0 % [facility] Hematocrit (Bld) [Volume fraction] 39.4 % 36.0 - 48.0 % [facility] Healthcar e Hemoglobin (Bld) [Mass/Vol] 12.8 g/dL 12.0 - 16.0 g/dL [facility] IMMATURE GRANULOCYTES ABS AUTO 0.04 High [facility] Immature granulocytes/100 WBC (Bld) 0.3 % 0.0 - 0.5 % [facility] Interpretation and review of laboratory results Abnormal [facility] LYMPHOCYTES ABSOLUTE AUTO 3.4 [facility] Lymphocytes/100 WBC (Bld) 26.5 % 20.5 - 60.0 % [facility] MCH (RBC) [Entitic mass] 25.7 pg Low 26.7 - 34.0 pg [facility] MCHC (RBC) [Mass/Vol] 32.5 g/dL 29.9 - 35.2 g/dL [facility] MCV (RBC) [Entitic vol] 79.0 fL Low 81.0 - 99.0 fL [facility] MONOCYTES ABSOLUTE AUTO 1.0 High [facility] Monocytes/100 WBC (Bld) 7.4 % 1.7 - 12.0 % [facility] NEUTROPHILS ABSOLUTE AUTO 8.3 High [facility] Neutrophils/100 WBC (Bld) 63.9 % 43.0 - 75.0 % [facility] Platelet mean volume (Bld) [Entitic vol] 10.6 fL 9.5 - 13.5 fL [facility] Healthc are TBH EO # 0.2 [facility] TB[facility] PLT 345 [facility] TB RBC 4.99 [facility] WBC 12.9 High [facility] Healthcar e [facility] Lipid Profileon 10-04-2022 Cholesterol [Mass/Vol] 172 mg/dL Normal <200 [facility] Comment on above: Result Comment: Cholesterol Guidelines: <200 Desirable 200-240 Borderline >240 Undesirable Performed By: #### L IPR #### [facility] [address] [place] [id number] Superintendent Police: Erik Redding MD Cholesterol in HDL [Mass/Vol] 36 mg/dL Low >40 [facility] Comment on above: Result Comment: HDL Guidelines: <40 Undesirable 40-59 Borderline >59 Desirable Performed By: #### L IPR #### [facility] [address] [place], [place] [phone] Superintendent Police: Erik Redding MD Cholesterol in LDL [Mass/Vol] 79 mg/dL Normal 0-130 [facility] Comment on above: Result Comment: LDL Guidelines: <100 Desirable 100-129 Near to/above Desirable 130-159 Borderline >159 Undesirable Direct (measured) LDL and calculated LDL are not interchangeable tests. Performed By: #### L IPR #### [address] [place] [address] Superintendent Police: Erik Redding MD Cholesterol.total/Ch olesterol in HDL [Mass ratio] 4.8 {ratio} Normal <5 [facility] Comment on above: Performed By: #### L IPR #### [address] [address] Superintendent Police: Erik Redding MD Triglyceride [Mass/Vol] 285 mg/dL High <150 [facility] Comment on above: Result Comment: Triglyceride Guidelines: <150 Desirable 150-199 Borderline 200-499 High >499 Very high Based on AHA Guidelines for fasting triglyceride, December 2011. Performed By: #### L IPR #### [address] [address] Superintendent Police: Erik Redding MD T3, Freeon 10-04-2022 Free T3 [Mass/Vol] 3.76 pg/mL Normal 2.02-4.43 [facility] Comment on above: Performed By: #### F T3 #### [address] [address] Superintendent Police: Erik Redding MD #### CMPF #### [facility] [address] [place] [address] Superintendent Police: Hemant Murphy MD Comp Metabol,Fastingon 10-03 Albumin [Mass/Vol] 4.6 g/dL Normal 3.5-5.2 [facility] Comment on above: Performed By: #### F T3 #### [address] [address] Superintendent Police: Erik Redding MD #### CMPF #### [facility] [address] [place] [address] Superintendent Police: Hemant Murphy MD Albumin/Glob Ratio 1.3 Normal 1.0-2.5 [facility] Comment on above: Performed By: #### F T3 #### [address] [place] [address] Superintendent Police: Erik Redding MD #### CMPF #### [facility] [address] [place], [place] [phone] Superintendent Police: Hemant Murphy MD Alkaline Phos 91 U/L Normal 35-104 [facility] Comment on above: Performed By: #### F T3 #### [address] [address] Superintendent Police: Erik Redding MD #### CMPF #### [facility] [address] [place] [address] [address] [place], [place] [phone] Superintendent Police: Hemant Murphy MD ALT [Catalytic activity/Vol] 39 U/L High 5-33 [facility] Comment on above: Performed By: #### F T3 #### [address] [address] Superintendent Police: Erik Redding MD #### CMPF #### [facility] [address] [place] [address] [place] [place], [place] [phone] Superintendent Police: Hemant Murphy MD Anion gap [Moles/Vol] 13 mmol/L Normal 9-17 [facility] Comment on above: Performed By: #### F T3 #### [address] [address] Superintendent Police: Erik Redding MD #### CMPF #### [facility] [address] [place] [address] Superintendent Police: Hemant Murphy MD AST [Catalytic activity/Vol] 34 U/L High <32 [facility] Comment on above: Performed By: #### F T3 #### [address] [address] Superintendent Police: Erik Redding MD #### CMPF #### [address] [place], [place] [phone] Superintendent Police: Hemant Murphy MD Bilirubin [Mass/Vol] 0.8 mg/dL Normal 0.3-1.2 [facility] Comment on above: Performed By: #### F T3 #### [address] [address] Superintendent Police: Erik Redding MD #### CMPF #### [facility] [address] [place] [address] Dr[address] [place], [place] [phone] Superintendent Police: Hemant Murphy MD BUN/CRE Ratio 20 Normal 9-20 [facility] Comment on above: Performed By: #### F T3 #### [address] [address] Superintendent Police: Erik Redding MD #### CMPF #### [address] [place], [place] [phone] Superintendent Police: Hemant Murphy MD Calcium [Mass/Vol] 9.2 mg/dL Normal 8.6-10.4 [facility] Comment on above: Performed By: #### F T3 #### [address] [address] Superintendent Police: Erik Redding MD #### CMPF #### [address] [place], [place] [phone] Superintendent Police: Hemant Murphy MD Chloride [Moles/Vol] 101 mmol/L Normal 98-107 [facility] Comment on above: Performed By: #### F T3 #### [address] [address] Superintendent Police: Erik Redding MD #### CMPF #### [address] [place], [place] [phone] Superintendent Police: Hemant Murphy MD CO2 [Moles/Vol] 22 mmol/L Normal 20-[address] [facility] Comment on above: Performed By: #### F T3 #### [facility] [address] [place] [address] Superintendent Police: Erik Redding MD #### CMPF #### [facility] [address] [place] [address] Superintendent Police: Hemant Murphy MD Creatinine [Mass/Vol] 0.54 mg/dL Normal 0.50-0.90 [facility] Comment on above: Performed By: #### F T3 #### [address] [place], [place] [phone] Superintendent Police: Erik Redding MD #### CMPF #### [facility] [address] [place] [address] Superintendent Police: Hemant Murphy MD GFR/1.73 sq M.predicted among non-blacks MDRD (S/P/Bld) [Vol rate/Area] mL/min/{1.73_m2} Normal >60 [facility] Comment on above: Result Comment: These results [...] secretion. Performed By: #### F T3 #### [facility] [address] [place] [address] Superintendent Police: Erik Redding MD #### CMPF #### [facility] [address] [place] [address] Superintendent Police: Hemant Murphy MD Glucose [Mass/Vol] 88 mg/dL Normal 70-99 [facility] Comment on above: Performed By: #### F T3 #### [address] [address] Superintendent Police: Erik Redding MD #### CMPF #### [facility] [address] [place] [address] Dr[address] [place], [place] [phone] Superintendent Police: Hemant Murphy MD Potassium [Moles/Vol] 4.3 mmol/L Normal 3.7-5.3 [facility] Comment on above: Performed By: #### F T3 #### [address] [address] Superintendent Police: Erik Redding MD #### CMPF #### [address] [place], [place] [phone] Superintendent Police: Hemant Murphy MD Protein [Mass/Vol] 8.1 g/dL Normal 6.4-8.3 [facility] Comment on above: Performed By: #### F T3 #### [address] [address] Superintendent Police: Erik Redding MD #### CMPF #### [address] [place], [place] [phone] Superintendent Police: Hemant Murphy MD Sodium [Moles/Vol] 136 mmol/L Normal 135-144 [facility] Comment on above: Performed By: #### F T3 #### [address] [address] Superintendent Police: Erik Redding MD #### CMPF #### [address] [place], [place] [phone] Superintendent Police: Hemant Murphy MD Urea nitrogen [Mass/Vol] 11 mg/dL Normal 6-20 [facility] Comment on above: Performed By: #### F T3 #### [address] [address] Superintendent Police: Erik Redding MD #### CMPF #### [facility] [address] [place] [address] Superintendent Police: Hemant Murphy MD [facility] Metabolic Pane l, Fastingon 10-03-2022 Albumin [Mass/Vol] 4.6 g/dL 3.5 - 5.2 g/dL [facility] Albumin/Globulin [Mass ratio] 1.3 {ratio} 1.0 - 2.5 [facility] ALP [Catalytic activity/Vol] 91 U/L 35 - 104 U/L [facility] ALT [Catalytic activity/Vol] 39 U/L High 5 - 33 U/L [facility] Anion gap [Moles/Vol] 13 mmol/L 9 - 17 mmol/L [facility] AST [Catalytic activity/Vol] 34 U/L High NINF - 32 U/L [facility] Bilirubin [Mass/Vol] 0.8 mg/dL 0.3 - 1 .2 mg/dL [facility] Calcium [Mass/Vol] 9.2 mg/dL 8.6 - 10. 4 mg/dL [facility] Chloride [Moles/Vol] 101 mmol/L 98 - 10 7 mmol/L [facility] CO2 [Moles/Vol] 22 mmol/L 20 - 31 mmol/L [facility] Creatinine [Mass/Vol] 0.54 mg/dL 0.50 - 0.90 mg/dL [facility] GFR/1.73 sq M.predicted MDRD (S/P/Bld) [Vol rate/Area] - PINF [facility] Comment on above: These results are [...] 88 mg/dL 70 - 99 mg/dL [facility] Interpretation and review of laboratory results Abnormal [facility] Potassium [Moles/Vol] 4.3 mmol/L 3.7 - 5.3 mmol/L [facility] Protein [Mass/Vol] 8.1 g/dL 6.4 - 8.3 g/dL [facility] Sodium [Moles/Vol] 136 mmol/L 135 - 144 mmol/L [facility] Urea nitrogen [Mass/Vol] 11 mg/dL 6 - 20 mg/dL [facility] Urea nitrogen/Creatinine [Mass ratio] 20 mg/mg 9 - 20 [facility] Lipid Panelon 10-03-2022 Cholesterol [Mass/Vol] 172 mg/dL NINF - 200 mg/dL [facility] Comment on above: Cholesterol Guidelines: <200 Desirable 200-240 Borderline >240 Undesirable Cholesterol in HDL [Mass/Vol] 36 mg/dL Low 40 - PINF mg/dL [facility] [employer] Comment on above: HDL Guidelines: <40 Undesirable 40-59 Borderline >59 Desirable Cholesterol in LDL [Mass/Vol] 79 mg/dL 0 - 130 mg/dL [facility] Comment on above: LDL Guidelines: <100 Desirable 100-129 Near to/above Desirable 130-159 Borderline >159 Undesirable Direct (measured) LDL and calculated LDL are not interchangeable tests. Cholesterol.total/Ch olesterol in HDL [Mass ratio] 4.8 {ratio} NINF - 5 [facility] Interpretation and review of laboratory results Abnormal [facility] Triglyceride [Mass/Vol] 285 mg/dL High NINF - 150 mg/dL [facility] Comment on above: Triglyceride Guidelines: <150 Desirable 150-199 Borderline 200-499 High >499 Very high Based on AHA Guidelines for fasting triglyceride, December 2011. [facility] T3, Freeon 10-03-2022 Free T3 [Mass/Vol] 3.76 pg/mL 2.02 - 4. 43 pg/mL [facility] TSH With Reflex Ft4on 2022 TSH Qn 1.66 m[IU]/L [facility] TSH w/reflex to FT4on 2022 Thyroid Stim. Horm. 1.66 uIU/mL Normal 0.30-5.00 [facility] Comment on above: Performed By: #### T SHX #### [facility] [address] [place] [address] Superintendent Police: Hemant Murphy MD PAP ACOG PANEL 2: 21 to 29on 12-20-2021 . . Normal [facility] Comment on above: Performed By: #### [id number] #### [facility] [address] [place] [address] Dr. Sachin Pereira Age Gdln ACOG Testing - [facility] Comment on above: Performed By: #### [id number] #### [facility] [address] [place] [address] Dr. Sachin Pereira DIAGNOSIS: Comment [facility] Comment on above: Result Comment: NEGA TIVE FOR INTRAEPITHELIAL LESION OR MALIGNANCY. Performed By: #### [id number] #### [facility] [address] [place] [address] Dr. Sachin Pereira Methodology: Comment [facility] Comment on above: Result Comment: This liquid based ThinPrep(R) pap test was screened with the use of an image guided system. Performed By: #### [id number] #### [facility] [address] [place] [address] Dr. Sachin Pereira Note: Comment [facility] Comment on above: Result Comment: The Pap smear is a screening test designed to aid in the detection of premalignant and malignant conditions of the uterine cervix. It is not a diagnostic procedure and should not be used as the sole means of detecting cervical cancer. Both false-positive and false-negative reports do occur. . Performed By: #### [id number] #### [facility] [address] [place] [address] Dr. Sachin Pereira Performed by: Comment Normal [facility] Comment on above: Result Comment: Collette Holliday, Vice President Of Instruction (ASCP) Performed By: #### [id number] #### [facility] [address] [place] [address] Dr. Sachin Pereira Reflex Criteria: Comment Normal [facility] Comment on above: Result Comment: The HPV DNA reflex criteria were not met with this specimen result therefore, no HPV testing was performed. . Performed By: #### [id number] #### [facility] [address] [address] [address] Sachin Pereira Specimen adequacy: Comment Normal [facility] Comment on above: Result Comment: Sati sfactory for evaluation. Endocervical and/or squamous metaplastic cells (endocervical component) are present. Performed By: #### [id number] #### [facility] [address] [address] [address] Sachin Pereira Vital Signs Date Time Vital Sign Value Performing Clinician Faci lity 04-09-2024 11:19-0500 Body mass index (BMI) [Ratio] 45.69 kg/m2 Jesika MARIE Work Phone: [facility] 04-09-2024 11:19-0500 Body weight 140.34 kg Jesika MARIE Work Phone: [facility] 04-09-2024 11:19-0500 Diastolic blood pressure 84 mm[Hg] Jesika MARIE Work Phone: [facility] 04-09-2024 11:19-0500 Systolic blood pressure 144 mm[Hg] Jesika MARIE Work Phone: [facility] 03-19-2024 11:03-0500 Body mass index (BMI) [Ratio] 46.04 kg/m2 Gilles Regis DO Work Phone: [facility] 03-19-2024 11:03-0500 Body weight 141.43 kg Gilles Regis DO Work Phone: [facility] 03-19-2024 11:03-0500 Diastolic blood pressure 90 mm[Hg] Gilles Regis DO Work Phone: [facility] 03-19-2024 11:03-0500 Systolic blood pressure 148 mm[Hg] Gilles Regis DO Work Phone: [facility] 02-20-2024 10:16-0500 Body mass index (BMI) [Ratio] 44.45 kg/m2 Jesika Oviedoduong MARIE Work Phone: [facility] 02-20-2024 10:16-0500 Body weight 136.53 kg Jesika Oviedoey PA Work Phone: [facility] 02-20-2024 10:16-0500 Diastolic blood pressure 84 mm[Hg] Jesika Oviedoey PA Work Phone: [facility] 02-20-2024 10:16-0500 Systolic blood pressure 124 mm[Hg] Jesika Mcknight PA Work Phone: [facility] 01-23-2024 11:02-0400 Body mass index (BMI) [Ratio] 44.3 kg/m2 Gilles Regis DO Work Phone: [facility] 01-23-2024 11:02-0400 Body weight 136.08 kg Gilles Regis DO Work Phone: [facility] 01-23-2024 11:02-0400 Diastolic blood pressure 82 mm[Hg] Gilles Regis DO Work Phone: [facility] 01-23-2024 11:02-0400 Systolic blood pressure 120 mm[Hg] Gilles Regis DO Work Phone: [facility] 12-26-2023 09:31-0400 Body mass index (BMI) [Ratio] 44.01 kg/m2 Gilles Regis DO Work Phone: [facility] 12-26-2023 09:31-0400 Body weight 135.17 kg Gilles Regis DO Work Phone: [facility] 12-26-2023 09:31-0400 Diastolic blood pressure 72 mm[Hg] Gilles Regis DO Work Phone: [facility] 12-26-2023 09:31-0400 Systolic blood pressure 120 mm[Hg] Gilles Regis DO Work Phone: [facility] 11-28-2023 08:56-0400 Body mass index (BMI) [Ratio] 44.08 kg/m2 Gilles Regis DO Work Phone: [facility] 11-28-2023 08:56-0400 Body weight 135.38 kg Gilles Regis DO Work Phone: [facility] 11-28-2023 08:56-0400 Diastolic blood pressure 70 mm[Hg] Gilles Regis DO Work Phone: [facility] 11-28-2023 08:56-0400 Systolic blood pressure 120 mm[Hg] Gilles Regis DO Work Phone: [facility] Encounters Encounter Date Encounter Type Care Provider Facility Start: 04-13-2024 End: 04-13-2024 Clinisync Result Encounter Jesika MARIE Work Phone: [facility] External Department Unsolicited Start: 04-13-2024 End: 04-13-2024 Clinisync Result Encounter Jesika MARIE Work Phone: [facility] External Department Unsolicited Start: 04-10-2024 End: 04-10-2024 Clinisync Result Encounter Jesika MARIE Work Phone: [facility] External Department Unsolicited Start: 04-10-2024 End: 04-10-2024 Clinisync Result Encounter Jesika MARIE Work Phone: [facility] External Department Unsolicited Start: 04-09-2024 End: 04-09-2024 flow sheet Jesika MARIE Work Phone: [facility] Comment on above: Third trimester preg chanel; 31 weeks gestation of ; induced hypertension, antepartum; Gestational proteinuria in third trimester; Gestational hypertension without significant proteinuria in third trimester Start: 04-09-2024 End: 04-09-2024 ambulatory JESIKA MCKNIGHT Not Available Start: 03-19-2024 End: 03-19-2024 Bamboo flowsheet Gilles Regis DO Work Phone: [facility] Start: 03-19-2024 End: 03-19-2024 [...] 02-20-2024 Bamboo flowsheet Jesika MARIE Work Phone: [facility] Start: 02-20-2024 End: 02-20-2024 Bamboo flowsheet Jesika MARIE Work Phone: [facility] Start: 02-20-2024 End: 02-20-2024 [...] Bamboo flowsheet Gilles Regis DO Work Phone: [facility] Start: 01-23-2024 End: 01-23-2024 flow sheet Gilles Regis DO Work Phone: [facility] Comment on above: 20 [...] encounter procedure Gilles Regis DO Work Phone: [facility] Start: 12-26-2023 End: 12-26-2023 Periodic preventive med est patient 18-39 yrs Gilles Regis DO Work Phone: [facility] Comment on above: Second [...] Start: 10-03-2022 End: 10-04-2022 ambulatory [place] [facility] Start: 10-03-2022 End: 10-03-2022 Subsequent hospital visit by physician Ny Michael [employer] Work Phone: [facility] Comment on above: Screening for hypoth [...] stick/tabl et rgnt non-auto w/o micrscp Jesika AMRIE Work Phone: Start: 03-19-2024 Urnls dip stick/tabl [...] Assay of triiodothyronine t3 free Ny Michael [employer] ARCHITECT - [facility] Work Phone: Start: 10-03-2022 Lipid panel Ny Michael [employer] Work Phone: Plan of Treatment Date Care Activity Detail Author Start: 04-23-2024 End: 04-23-2024 Patient encounter procedure 04/23/2024 8:30 AM EST Routine [facility] [address] [place] [id number] Gilles Stacy, DO [address] [place] [address] [facility] Start: 04-09-2024 End: 04-09-2025 Alanine aminotransferase [Enzymatic activity/volume] in Serum or Plasma ALT Lab Routine induced hypertension, antepartum Expected: 04/09/2024 (Approximate), Expires: 04/09/2025 [facility] Comment on above: Expected: 04/09/2024 (Approximate), Expires: 04/09/2025 Start: 04-09-2024 End: 04-09-2025 Aspartate aminotransferase [Enzymatic activity/volume] in Serum or Plasma AST Lab Routine induced hypertension, antepartum Expected: 04/09/2024 (Approximate), Expires: 04/09/2025 [facility] Comment on above: Expected: 04/09/2024 (Approximate), Expires: 04/09/2025 Start: 04-09-2024 End: 04-09-2025 CBC W Auto Differential panel - Blood CBC and differential Lab Routine induced hypertension, antepartum Expected: 04/09/2024 (Approximate), Expires: 04/09/2025 [facility] Comment on above: Expected: 04/09/2024 (Approximate), Expires: 04/09/2025 Start: 04-09-2024 End: 04-09-2025 Creatinine [Mass/volume] in Serum or Plasma Creatinine Lab Routine induced hypertension, antepartum Expected: 04/09/2024 (Approximate), Expires: 04/09/2025 [facility] Work Phone: Comment on above: Expected: 04/09/2024 [...] induced hypertension, antepartum Expected: 04/09/2024, Expires: 04/09/2025 [facility] Comment on above: Expected: 04/09/2024 , Expires: 04/09/2025 Start: 04-09-2024 End: 04-09-2025 Urate [Mass/volume] in Serum or Plasma Uric acid Lab Routine induced hypertension, antepartum Expected: 04/09/2024 (Approximate), Expires: 04/09/2025 [facility] Comment on above: Expected: 04/09/2024 (Approximate), Expires: 04/09/2025 Start: 04-09-2024 End: 04-09-2025 Urea nitrogen [Mass/volume] in Serum or Plasma BUN Lab Routine induced hypertension, antepartum Expected: 04/09/2024, Expires: 04/09/2025 [facility] Comment on above: Expected: 04/09/2024 , Expires: 04/09/2025 Start: 04-09-2024 End: 04-09-2024 Patient encounter procedure 04/09/2024 11:20 AM EST Routine [facility] [address] [place] [id number] Jesika Mcknight PA [address] [place] [address] [facility] Start: 04-09-2024 End: 04-09-2024 Professional / ancillary services management 04/09/2024 10:30 AM EST Ancillary Procedure [facility] [address] [place] [address] [facility] Start: 03-19-2024 End: 03-19-2025 [...] control unspecified Expected: 03/19/2024 (Approximate), Expires: 03/19/2025 [facility] Comment on above: Expected: 03/19/2024 (Approximate), Expires: 03/19/2025 Start: 03-19-2024 End: 03-19-2024 Patient encounter procedure [facility] Comment on above: Arrived Start: 02-20-2024 End: 02-19-2025 CBC panel - Blood by Automated count CBC Lab Routine Diabetes mellitus screening Expected: 02/20/2024 (Approximate), Expires: 02/19/2025 [facility] Work Phone: Comment on above: Expected: [...] EDT Ancillary Procedure [facility] [address] [place] [address] [facility] Start: 12-26-2023 End: 01-25-2024 Alpha fetoprotein, maternal Alpha fetoprotein, maternal Lab Routine Need for maternal serum alpha-protein (MSAFP) screening Expected: 12/26/2023 (Approximate), Expires: 01/25/2024 [facility] Comment on above: Expected: 12/26/2023 (Approximate), Expires: 01/25/2024 Start: 12-26-2023 End: 12-25-2024 US for US OB ANATOMY SINGLE W US OB CERVICAL LENGTH Imaging Routine Screening, , for anatomic survey Expected: 12/26/2023 (Approximate), Expires: 12/25/2024 [facility] Comment on above: Expected: 12/26/2023 (Approximate), Expires: 12/25/2024 Start: 12-26-2023 End: 12-26-2023 Patient encounter procedure [facility] Comment on above: Arrived Start: 12-01-2023 Influenza vaccination Influenza Vacc ine (#1) [facility] Start: 11-28-2023 End: 11-27-2024 Measurement of glucose 1 hour after glucose challenge for glucose tolerance test Glucose tolerance, 1 hour Lab Routine Diabetes mellitus screening Expected: 11/28/2023 (Approximate), Expires: 11/27/2024 [facility] Work Phone: Comment on above: Expected: 11/28/2023 (Approximate), Expires: 11/27/2024 Start: 11-28-2023 End: 11-28-2023 Patient encounter procedure [facility] Comment on above: Arrived Start: 10-09-2023 End: 10-09-2023 Patient encounter procedure 10/09/2023 Office Visit Primary Care Ny Michael, MIKAYLA - [employer] [address] [place] [address] [facility] Start: 10-02-2023 Depression Screen Depression Screen [facility] Start: 10-02-2023 DTaP/Tdap/Td vaccine (1 - Tdap) DTaP/Tdap/Td vaccine (1 - Tdap) [facility] Comment on above: Postponed from 07/16 (Patient Refused) Start: 10-02-2023 Hepatitis C screening Hepatitis C sc reen [facility] Comment on above: Postponed from 07/16 (Patient Refused) Start: 10-02-2023 HIV screening HIV screen [facility] Comment on above: Postponed from 07/16 (Patient Refused) Start: 10-02-2023 HPV vaccine (1 - 2-d ose series) HPV vaccine (1 - 2-dose series) [facility] Comment on above: Postponed from 07/16 (Patient Refused) Start: 10-30-2022 Influenza vaccination Flu vaccine (# 1) [facility] Start: 05-01-2021 COVID-19 Vaccine (2 - Booster for Kinga series) COVID-19 Vaccine (2 - Booster for Kinga series) [facility] Start: 2017 Screening for malign ant neoplasm of cervix Pap smear [facility] CHLAMYDIA TRACHOMATI S (GENITO/STI) CHLAMYDIA TRACHOMATIS (GENITO/STI) Lab Routine Exposure to STD Ordered: 12/26/2023 [facility] Comment on above: Ordered: 12/26/2023 Cytology Cervical or vaginal smear or scraping study Pap Smear Pathology and Cytology Routine Well woman exam with routine gynecological exam Ordered: 12/26/2023 [facility] Comment on above: Ordered: 12/26/2023 Neisseria gonorrhoea e DNA [Presence] in Unspecified specimen by SHANNA with probe detection Neisseria gonorrhea DNA probe, direct Lab Routine Exposure to STD Ordered: 12/26/2023 [facility] Comment on above: Ordered: 12/26/2023 SURESWAB(R) ADVANCED VAGINITIS PLUS, TMA SURESWAB(R) ADVANCED VAGINITIS PLUS, TMA Pathology and Cytology Routine Exposure to STD Ordered: 12/26/2023 [facility] Work Phone: Comment on above: Ordered: 12/26/2023 Immunizations Immunization Date Immunization Notes Care Provider Fa andrés 03-06-2021 COVID-19, J&J, (age 18y+), IM, 0.5 mL Ny Michael [employer] Work Phone: [facility] Payers Date Payer Category Payer Private Health Insurance [id number] 2022 Private Health Insurance [id number] 1996 Unknown [id number] 2.16.84 [id number] 1996 Unknown [id number] 2.16.84 [id number] 1996 Unknown [id number] 2.16.8 [id number] 1996 Unknown [id number] 2.16.84 [id number] 1996 Unknown [id number] 2.16.84 [id number] 1996 Unknown [id number] 2.16.84 [id number] 1996 Unknown [id number] 2.16.84 [id number] 1996 Unknown [id number] 2.16.84 [id number] 1996 Unknown [id number] 2.16.84 [id number] 1996 Unknown [id number] 2.16.84 [id number] 1996 Unknown [id number] 2.16.84 [id number] 1959 Self-pay [id number] 1959 Unknown [id number] Social History Date Type Detail Facility Start: 10-01-2022 Tobacco smoking status WIIS Ex-smoker [facility] End: 05-30-2021 History of tobacco use Current smoker [employer] End: 05-30-2021 History of tobacco use Cigarette Smoker [facility] History of tobacco use Tobacco U se Types Packs/Day Years Used Date Smoking Tobacco: Former Cigarettes 0.5 5 Quit: 05/2021 E-Cigarettes Smokeless Tobacco: Never [facility] Start: 10-01-2022 Cigarettes smoked current (pack per day) - Reported 0.5 [facility] Start: 10-01-2022 Tobacco use and exposure Smokeless tobacco non-user [employer] Start: 10-01-2022 Alcohol intake Ex-drinker (finding) [facility] Start: 10-01-2022 History SDOH Physical Activity DPW 3 [employer] Start: 10-01-2022 History SDOH Physical Activity MPS 6 [facility] Start: 10-01-2022 History SDOH Financial 5 [employer] Start: 10-01-2022 History SDOH Food Worry 1 [employer] Start: 10-01-2022 History SDOH Transport Non-Med 2 [employer] Start: 10-01-2022 Alcohol Comment Socially [employer] Start: 1995 Sex Assigned At Female [facility] Tobacco smoking stat [facility] Tobacco smoking consumption unknown [facility] Start: 09-17-2023 [facility] Start: 12-11-2022 Gender identity Identifies as female gender (finding) [facility] Start: 12-11-2022 Sexual orientation Heterosexual (finding) [facility] Medical Equipment Procedure Code Equipment Code Equipment Origin al Text Equipment Identifier Dates 1 strip by In Vi tro route Daily Use in the morning prior to breakfast, 1 hour after each meal for a total of 4times daily. [id number] Start: 03-16-2024 End: 04-15-2024 1 each by In Vit ro route Daily Use to check FSBS four times daily [id number] Start: 03-16-2024 End: 04-15-2024 Goals Date Patient [...] mg, Oral, Daily Blood Glucose Monitoring Suppl ([employer] Glucometer) w/Device kit 1 kit, Does not [...] of: CYNTHIA Parker documented in this encounter [facility] 03-19-2024 History of Presen t illness Narrative [...] mg, Oral, Daily Blood Glucose Monitoring Suppl ([employer] Glucometer) w/Device kit 1 kit, Does not [...] Gilles Stacy DO documented in this encounter [facility] 02-20-2024 History of Presen t illness Narrative [...] nursing note reviewed. Exam conducted with a rn support services present. Vitals: Estimated body mass index is [...] hour glucose order to have done at [facility]. Orders Placed This Encounter Procedures CBC Glucose tolerance, 1 hour POCT urinalysis dipstick manually resulted Follow Up: Patient is to return to office in 2 week for routine OB appointment. Documented by Giovana Azar MA on behalf of: CYNTHIA Parker documented in this encounter [facility] 01-23-2024 History of Presen t illness Narrative [...] nursing note reviewed. Exam conducted with a rn support services present. Vitals: Estimated body mass index is [...] Gilles Stacy DO documented in this encounter [facility] 12-26-2023 History of Presen t illness Narrative [...] nursing note reviewed. Exam conducted with a rn support services present. Vitals: Estimated body mass index is [...] Gilles Stacy DO documented in this encounter [facility] 11-28-2023 History of Presen t illness Narrative [...] nursing note reviewed. Exam conducted with a rn support services present. Vitals: Estimated body mass index is [...] or undercooked meat, and stay away from [facility]. Patient has been consulted regarding any further [...] Gilles Stacy DO documented in this encounter [facility] Evaluation note Diagnosis Screening for hypothyroidism Screening for thyroid disorder Diabetes mellitus screening Screening for diabetes mellitus Lipid screening Screening for lipoid disorders documented [facility] Diagnosis 20 weeks gestation of Second trimester state, incidental documented in this encounter [facility] HealthcareEvaluation note* Diagnosis Second trimester state, incidental 24 weeks gestation of Diabetes mellitus screening Screening for diabetes mellitus documented in this encounter [facility] HealthcareEvaluation note* Diagnosis 12 weeks gestation of Diabetes mellitus screening Screening for diabetes mellitus documented in this encounter [facility] HealthcareEvaluation note* Diagnosis Second trimester state, incidental Well woman exam with routine gynecological exam Routine gynecological examination Exposure to STD Need for maternal serum alpha-protein (MSAFP) screening Screening, , for anatomic survey Encounter for anatomic survey documented in this encounter [facility] HealthcareEvaluation note* Diagnosis 28 weeks gestation [...] in third trimester documented in this encounter [facility] Healthcare Summary Purpose Family History No [...] DATE CREATED AUTHOR AUTHOR'S ORGANIZ ATION 04/14/2024 [facility] EPIC Care Teams (unrecognized sec tion and content) 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 [employer] provides no warranty or guarantee of the accuracy or completeness of information in this document.
[2024-04-20 11:02] VITALS: BP 136/77; PULSE 95
== END 2024-04-20 12:00 | disposition home or self-care (01) ==
LOC: FBCO 04:08 → FBC 10:50
PROVIDERS: Visit Provider Obstetrics & Gynecology
DX: O24.419 Gestational diabetes mellitus in pregnancy, unspecified control (principal)
CPT/HCPCS: 59025

== ENCOUNTER 2024-04-23 01:18 | Outpatient (OUT) | payer OTHER, SELFPAY ==
--- OUTSIDE RECORDS SUMMARY | 2024-04-23 01:23 | XMS_ITS | CCD ---
Author Organization [facility] Care Team Providers Care Porcelain Enamel Sprayer Name Role Phone FIDENCIO ANDRES Primary Care Unavailable FIDENCIO ANDRES Attending Unavailable FIDENCIO ANDRES Admitting Unavailable REGIS, DR CAMPOVERDE Admitting Unavailable REGIS, DR CAMPOVERDE Consulting Unavailable REGIS, DR CAMPOVERDE Attending Unavailable FIDENCIO ANDRES Primary Care Unavailable Stephania Ny FELICIANO CNP Primary Care [facility] [place] MICHAEL Referring Unavailable [...] and review of laboratory results Abnormal [facility] Protein (U) [Mass/Vol] 21.4 mg/dL High NINF - 11.9 mg/dL [facility] TBH TOTAL PROTEIN 24 HOUR URINE 310.3 High [facility] TOTAL VOLUME 24 HOUR URINE 1450 mL/24hr [facility] Healthcar e ALL CBC WITH AUTO DIFFon BASOPHILS ABSOLUTE AUTO 0.1 [facility] Basophils/100 WBC (Bld) 0.5 % 0.2 - 2.0 % [facility] Eosinophils/100 WBC (Bld) 1.4 % 0.9 - 7.0 % [facility] Erythrocyte distribution width (RBC) [Ratio] 15.1 % High 11.0 - 15.0 % [facility] Hematocrit (Bld) [Volume fraction] 36.2 % 36.0 - 48.0 % [facility] Hem[facility] (Bld) [Mass/Vol] 11.5 g/dL Low 12.0 - 16.0 g/dL [facility] IMMATURE GRANULOCYTES ABS AUTO 0.05 High [facility] Immature granulocytes/100 WBC (Bld) 0.3 % 0.0 - 0.5 % [facility] Interpretation and review of laboratory results Abnormal [facility] LYMPHOCYTES ABSOLUTE AUTO 2.9 [facility] Lymphocytes/100 WBC (Bld) 19.5 % Low 20.5 - 60.0 % [facility] MCH (RBC) [Entitic mass] 25 pg Low 26.7 - 34.0 pg [facility] MCHC (RBC) [Mass/Vol] 31.8 g/dL 29.9 - 35.2 g/dL [facility] MCV (RBC) [Entitic vol] 78.7 fL Low 81.0 - 99.0 fL [facility] MONOCYTES ABSOLUTE AUTO 1.2 High [facility] Monocytes/100 WBC (Bld) 7.6 % 1.7 [...] 2177 cm / 4 lbs, 12 oz (1531-9475 gm) [place] Normal: 1812 gm (3592-3348 gm) [place] Wt%: >97% for 31.3 wks [...] Negative Negative - 4(70) +++ mg/dL [facility] Blood, UA Negative Negative - 50 Horacio/mcL [facility] Healthcare Clarity, UA Clear [facility] re Color, UA Yellow [facility] Glucose, UA Negative Negative - 1999(110) ++++ mg/dL [facility] Interpretation and review of laboratory results Abnormal [facility] Ketones, UA Negative Negative - 160(16) ++++ mg/dL [facility] Leukocytes, UA Negative Negative - 500+++ Nica/mcL [facility] Nitrite, UA Negative Negative - Positive [facility] pH, UA 6.5 5 - 9 [facility] Healthcar e Protein, UA Positive Negative - 1999(20) ++++ mg/dL [facility] Spec Grav, UA 1.03 1 - 1.03 [facility] Urobilinogen, UA 1.0 0.2 - 12 mg/dL [facility] Urinalysis macro (dipstick) panel (U)on 03-19-2024 Bilirubin, UA Negative Negative - 4(70) +++ mg/dL [facility] Blood, UA Negative Negative - 50 Horacio/mcL [facility] Healthcare Clarity, UA Clear [facility] Healthca re Color, UA Straw [facility] Healthcar e Glucose, UA Negative Negative - 1999(110) ++++ mg/dL [facility] Interpretation and review of laboratory results Abnormal [facility] Ketones, UA Negative Negative - 160(16) ++++ mg/dL [facility] Leukocytes, UA Trace Negative - 500+++ Nica/mcL [facility] Nitrite, UA Negative Negative - Positive [facility] pH, UA 6 5 - 9 [facility] Health[facility] e Protein, UA Negative Negative - 1999(20) ++++ mg/dL [facility] Spec Grav, UA 1.03 1 - 1.03 [facility] Urobilinogen, UA 0.2 0.2 - 12 mg/dL [facility] GLUCOSE TOLERANCE 3 HOURon 1 05-13-2023 GLUCOSE TOLERANCE 3 HOUR High mg/dL [facility] Comment on above: GLU FAST 108H (<95) Col: 03/12/24 0757 GLU 1HR 190H (<180) Col: 03/12/24 0900 GLU 2HR 172H (<155) Col: 03/12/24 1000 GLU 3HR 121 (<140) Col: 03/12/24 1100 Interpretation and review of laboratory results Abnormal [facility] Healthcare [facility] e ALL CBC WITH AUTO DIFFon BASOPHILS ABSOLUTE AUTO 0.1 [facility] Basophils/100 WBC (Bld) 0.5 % 0.2 - 2.0 % [facility] Eosinophils/100 WBC (Bld) 2.4 % 0.9 - 7.0 % [facility] Erythrocyte distribution width (RBC) [Ratio] 14.7 % 11.0 - 15.0 % [facility] Hematocrit (Bld) [Volume fraction] 36.9 % 36.0 - 48.0 % [facility] Health[facility] e Hemoglobin (Bld) [Mass/Vol] 11.7 g/dL Low 12.0 - 16.0 g/dL [facility] IMMATURE GRANULOCYTES ABS AUTO 0.07 High [facility] Immature granulocytes/100 WBC (Bld) 0.5 % 0.0 - 0.5 % [facility] Interpretation and review of laboratory results Abnormal [facility] LYMPHOCYTES ABSOLUTE AUTO 3.3 [facility] Lymphocytes/100 WBC (Bld) 22.6 % 20.5 - 60.0 % [facility] MCH (RBC) [Entitic mass] 25.6 pg Low 26.7 - 34.0 pg [facility] MCHC (RBC) [Mass/Vol] 31.7 g/dL 29.9 - 35.2 g/dL [facility] MCV (RBC) [Entitic vol] 80.7 fL Low 81.0 - 99.0 fL [facility] MONOCYTES ABSOLUTE AUTO 1 High [facility] Monocytes/100 WBC (Bld) 6.7 % 1.7 - 12.0 % [facility] NEUTROPHILS ABSOLUTE AUTO 9.7 High [facility] Neutrophils/100 WBC (Bld) 67.3 % 43.0 - 75.0 % [facility] Platelet mean volume (Bld) [Entitic vol] 10.4 fL 9.5 - 13.5 fL [facility] EO # 0.3 [facility] TB[facility] PLT 339 [facility] RBC 4.57 [facility] TB[facility] WBC 14.4 High [facility] Urinalysis macro (dipstick) panel (U)on 02-20-2024 Bilirubin, UA Negative Negative - 4(70) +++ mg/dL [facility] Healthcare Blood, UA Negative Negative - 50 Horacio/mcL [facility] Healthcare Clarity, UA Clear [facility] re Color, UA Yellow [facility] Glucose, UA Negative Negative - 1999(110) ++++ mg/dL [facility] Interpretation and review of laboratory results Abnormal [facility] Ketones, UA Negative Negative - 160(16) ++++ mg/dL [facility] Healthcare Leukocytes, UA Trace Negative - 500+++ Nica/mcL [facility] Healthcare Nitrite, UA Negative Negative - Positive [facility] pH, UA 7 5 - 9 [facility] Healthcar e Protein, UA Negative Negative - 1999(20) ++++ mg/dL [facility] Healthcare Spec Grav, UA 1.025 1 - 1.03 [facility] care Urobilinogen, UA 0.2 0.2 - 12 mg/dL [facility] Urinalysis macro (dipstick) panel (U)on 01-23-2024 Bilirubin, UA Negative Negative - 4(70) +++ mg/dL [facility] Blood, UA Negative Negative - 50 Horacio/mcL [facility] Healthcare Clarity, UA Clear [facility] re Color, UA Yellow [facility] Health[facility] e Glucose, UA Negative Negative - 1999(110) ++++ mg/dL [facility] Interpretation and review of laboratory results Abnormal [facility] Ketones, UA Negative Negative - 160(16) ++++ mg/dL [facility] Healthcare Leukocytes, UA Trace Negative - 500+++ Nica/mcL [facility] Healthcare Nitrite, UA Negative Negative - Positive [facility] pH, UA 6.5 5 - 9 [facility] Health[facility] e Protein, UA Negative Negative - 1999(20) ++++ mg/dL [facility] Spec Grav, UA 1.015 1 - 1.03 [facility] Urobilinogen, UA 0.2 0.2 - 12 mg/dL [facility] IGP,APTIMA HPV,AGE GDLNon AGE GDLN ACOG TESTING Note . [facility] Comment on above: TESTS RESULT FLAG UN ITS REF RANGE LAB Clinician Provided Cytology Information Source.............Cervix Other.............. No. of containers..01 ThinPrep Vial Age Raul RODARTE Micaela... FLAG LEGEND: L-Low Normal,H-High Normal,LL-Alert Low,HH-Alert High <-Panic Low,>-Panic High,A-Abnormal,AA-Critical Abnormal Performed at: 01 =[facility] [address] [facility] [place] [address] Vania Cabezas MD, IGP, RFX APTIMA HPV ASCU Note . [facility] Comment on above: TESTS RESULT FLAG UN ITS REF RANGE LAB DIAGNOSIS: 02 NEGATIVE FOR INTRAEPITHELIAL LESION OR MALIGNANCY. Specimen adequacy: 02 Satisfactory for evaluation. Endocervical and/or squamous metaplastic cells (endocervical component) are present. Performed by: Riley Franklin Gis Scientist ([facility]) . 02 Note: Note 02 The [...] Low,>-Panic High,A-Abnormal,AA-Critical Abnormal Performed at: [address] [id number] Vania Cabezas MD, Performed at: =G - [facility] [id number] Manager Publishing: Vania Cabezas MD, Phone: [phone] Performed at: [facility] [address] [id number] Manager Publishing: Vania Cabezas MD, Phone: [phone] SPATULA-ALONE [facility] Urinalysis macro (dipstick) panel (U)on 12-26-2023 Bilirubin, UA Negative Negative - 4(70) +++ mg/dL [facility] Blood, UA Negative Negative - 50 Horacio/mcL [facility] Clarity, UA Clear [facility] [employer] re Color, UA Yellow [facility] Gather e Glucose, UA Negative Negative - 2000(110) ++++ mg/dL [facility] Interpretation and review of laboratory results Normal [facility] Ketones, UA Positive Negative - 160(16) ++++ mg/dL [facility] Comment on above: trace Leukocytes, UA Positive Negative - 500+++ Nica/mcL [facility] Comment on above: small Nitrite, UA Negative Negative - Positive [facility] pH, UA 6.0 5 - 9 [facility] Healthcar e Protein, UA Negative Negative - 1999(20) ++++ mg/dL [facility] Spec Grav, UA 1.015 1 - 1.03 [facility] Urobilinogen, UA 0.2 0.2 - 12 mg/dL [facility] GLUCOSE 1 HOURon 12-11-2023 Glucose [Mass/Vol] 131 mg/dL High NINF - 13 0 mg/dL [facility] Interpretation and review of laboratory results Abnormal [facility] CLINISYNC Located within [facility] e No Panel Informationon 11-28 STAPHYLOCOCCUS EPIDERMIDIS, HAEMOLYTICUS, LUGDUNENSIS, SAPROPHYTICUS (URINA 0.000 [facility] STAPHYLOCOCCUS EPIDERMIDIS, HAEMOLYTICUS, LUGDUNENSIS, SAPROPHYTICUS (URINA Not detected [facility] URINARY TRACT INFECTION (HTR X)on 11-29-2023 ACINETOBACTER BAUMANII 0.000 [facility] ACINETOBACTER BAUMANII Not detected [facility] CHRISTIAN ALBICANS, PARAPSILOSIS, TROPICALIS 0.000 [facility] CHRISTIAN ALBICANS, PARAPSILOSIS, TROPICALIS Not detected [facility] CHRISTIAN GLABRATA 0.000 [facility] ltare CHRISTIAN GLABRATA Not detected [facility] CHRISTIAN KRUSEI [address] [facility] hcare CHRISTIAN KRUSEI Not detected [facility] CITROBACTER FREUNDII 0.000 [facility] CITROBACTER FREUNDII Not detected NO [facility] ENTEROBACTER AEROGENES, CLOACAE 0.000 [facility] re ENTEROBACTER AEROGENES, CLOACAE Not detected [facility] re ENTEROCOCCUS FAECALIS, FAECIUM 0.000 [facility]ated [facility] e ENTEROCOCCUS FAECALIS, FAECIUM Not detected [facility] e ESCHERICHIA COLI 0.000 [facility] lthcare ESCHERICHIA COLI Not detected [facility] H ealthcare KLEBSIELLA PNEUMONIAE, OXYTOCA 0.000 [facility] are KLEBSIELLA PNEUMONIAE, OXYTOCA Not detected [facility] are MORGANELLA MORGANII 0.000 [facility] MORGANELLA MORGANII Not detected [facility] PROTEUS MIRABILIS, VULGARIS 0.000 [facility] PROTEUS MIRABILIS, VULGARIS Not detected [facility] PSEUDOMONAS AERUGINOSA 0.000 [facility] PSEUDOMONAS AERUGINOSA Not detected [facility] SERRATIA MARCESCENS 0.000 [facility] SERRATIA MARCESCENS Not detected [facility] STAPHYLOCOCCUS AUREUS 0.000 [facility] STAPHYLOCOCCUS AUREUS Not detected [facility] STREPTOCOCCUS AGALACTIAE (GROUP B STREP) 0.000 [facility] STREPTOCOCCUS AGALACTIAE (GROUP B STREP) Not detected [facility] STREPTOCOCCUS PYOGENES (GROUP A STREP) 0.000 [facility] STREPTOCOCCUS PYOGENES (GROUP A STREP) Not detected [facility] Urinalysis macro (dipstick) panel (U)on 11-28-2023 Bilirubin, UA Positive Negative - 4(70) +++ mg/dL [facility] Comment on above: small Blood, UA Negative Negative - 50 Horacio/mcL [facility] Clarity, UA Clear [facility] re Color, UA Yellow [facility] Glucose, UA Negative Negative - 1999(110) ++++ mg/dL [facility] Interpretation and review of laboratory results Abnormal [facility] Ketones, UA Negative Negative - 160(16) ++++ mg/dL [facility] Leukocytes, UA Trace Negative - 500+++ Nica/mcL [facility] Nitrite, UA Negative Negative - Positive [facility] pH, UA 7.0 5 - 9 [facility] e Protein, UA Trace Negative - 1999(20) ++++ mg/dL [facility] Spec Grav, UA 1.025 1 - 1.03 [facility] Urobilinogen, UA 0.2 0.2 - 12 mg/dL [facility] Healthcar e ALL CBC WITH AUTO DIFFon BASOPHILS ABSOLUTE AUTO 0.1 [facility] Basophils/100 WBC (Bld) 0.4 % 0.2 - 2.0 % [facility] Eosinophils/100 WBC (Bld) 1.5 % 0.9 - 7.0 % [facility] Erythrocyte distribution width (RBC) [Ratio] 14.8 % 11.0 - 15.0 % [facility] Hematocrit (Bld) [Volume fraction] 39.4 % 36.0 - 48.0 % [facility] Health[facility] e Hemoglobin (Bld) [Mass/Vol] 12.8 g/dL 12.0 - 16.0 g/dL [facility] IMMATURE GRANULOCYTES ABS AUTO 0.04 High [facility] Immature granulocytes/100 WBC (Bld) 0.3 % 0.0 - 0.5 % [facility] Interpretation and review of laboratory results Abnormal [facility] LYMPHOCYTES ABSOLUTE AUTO 3.4 [facility] Lymphocytes/100 WBC (Bld) 26.5 % 20.5 - 60.0 % [facility] MCH (RBC) [Entitic mass] 25.7 pg Low 26.7 - 34.0 pg [facility] MCHC (RBC) [Mass/Vol] 32.5 g/dL 29.9 - 35.2 g/dL [facility] MCV (RBC) [Entitic vol] 79.0 fL Low 81.0 - 99.0 fL [facility] MONOCYTES ABSOLUTE AUTO 1.0 High [facility] Monocytes/100 WBC (Bld) 7.4 % 1.7 - 12.0 % [facility] NEUTROPHILS ABSOLUTE AUTO 8.3 High [facility] Neutrophils/100 WBC (Bld) 63.9 % 43.0 - 75.0 % [facility] Platelet mean volume (Bld) [Entitic vol] 10.6 fL 9.5 - 13.5 fL [facility] Healthc are TBH EO # 0.2 [facility] TBH PLT 345 [facility] TB RBC 4.99 [facility] TBH WBC 12.9 High [facility] Health[facility] e [facility] Lipid Profileon 10-04-2022 Cholesterol [Mass/Vol] 172 mg/dL Normal <200 [facility] Comment on above: Result Comment: Cholesterol Guidelines: <200 Desirable 200-240 Borderline >240 Undesirable Performed By: #### L IPR #### Project Manager [address] [place] [id number] Manager Publishing: Erik Redding MD Cholesterol in HDL [Mass/Vol] 36 mg/dL Low >40 [facility] Comment on above: Result Comment: HDL Guidelines: <40 Undesirable 40-59 Borderline >59 Desirable Performed By: #### L IPR #### Project Manager [address] [place], [place] [phone] Manager Publishing: Erik Redding MD Cholesterol in LDL [Mass/Vol] 79 mg/dL Normal 0-130 [facility] Comment on above: Result Comment: LDL Guidelines: <100 Desirable 100-129 Near to/above Desirable 130-159 Borderline >159 Undesirable Direct (measured) LDL and calculated LDL are not interchangeable tests. Performed By: #### L IPR #### [id number] [place] [address] Manager Publishing: Erik Redding MD Cholesterol.total/Ch olesterol in HDL [Mass ratio] 4.8 {ratio} Normal <5 [facility] Comment on above: Performed By: #### L IPR #### [address] [address] Manager Publishing: Erik Redding MD Triglyceride [Mass/Vol] 285 mg/dL High <150 [facility] Comment on above: Result Comment: Triglyceride Guidelines: <150 Desirable 150-199 Borderline 200-499 High >499 Very high Based on AHA Guidelines for fasting triglyceride, December 2011. Performed By: #### L IPR #### [address] [id number] Manager Publishing: Erik Redding MD T3, Freeon 10-04-2022 Free T3 [Mass/Vol] 3.76 pg/mL Normal 2.02-4.43 [facility] Comment on above: Performed By: #### F T3 #### [address] [id number] Manager Publishing: Erki Redding MD #### CMPF #### [facility] [address] [place] [address] Manager Publishing: Hemant Murphy MD Comp Metabol,Fastingon 10-03 Albumin [Mass/Vol] 4.6 g/dL Normal 3.5-5.2 [facility] Comment on above: Performed By: #### F T3 #### [address] [address] Manager Publishing: Erik Redding MD #### CMPF #### [facility] [address] [place] [address] Manager Publishing: Hemant Murphy MD Albumin/Glob Ratio 1.3 Normal 1.0-2.5 [facility] Comment on above: Performed By: #### F T3 #### [id number] [place] [address] Manager Publishing: Erik Redding MD #### CMPF #### [facility] [address] [place], [place] [phone] Manager Publishing: Hemant Murphy MD Alkaline Phos 91 U/L Normal 35-104 [facility] Comment on above: Performed By: #### F T3 #### [address] [address] Manager Publishing: Erik Redding MD #### CMPF #### [facility] [address] [place] [address] [address] [place], [place] [phone] Manager Publishing: Hemant Murphy MD ALT [Catalytic activity/Vol] 39 U/L High 5-33 [facility] Comment on above: Performed By: #### F T3 #### [address] [address] Manager Publishing: Erik Redding MD #### CMPF #### [facility] [address] [place] [address] Dr[address] [place], [place] [phone] Manager Publishing: Hemant Murphy MD Anion gap [Moles/Vol] 13 mmol/L Normal 9-17 [facility] Comment on above: Performed By: #### F T3 #### [address] [address] Manager Publishing: Erik Redding MD #### CMPF #### [facility] [address] [place] [address] Manager Publishing: Hemant Murphy MD AST [Catalytic activity/Vol] 34 U/L High <32 [facility] Comment on above: Performed By: #### F T3 #### [address] [address] Manager Publishing: Erik Redding MD #### CMPF #### [address] [place], [place] [phone] Manager Publishing: Hemant Murphy MD Bilirubin [Mass/Vol] 0.8 mg/dL Normal 0.3-1.2 [facility] Comment on above: Performed By: #### F T3 #### [address] [address] Manager Publishing: Erik Redding MD #### CMPF #### [facility] [address] [place] [address] [address] [place], [place] [phone] Manager Publishing: Hemant Murphy MD BUN/CRE Ratio 20 Normal 9-20 [facility] Comment on above: Performed By: #### F T3 #### [address] [address] Manager Publishing: Erik Redding MD #### CMPF #### [address] [place], [place] [phone] Manager Publishing: Hemant Murphy MD Calcium [Mass/Vol] 9.2 mg/dL Normal 8.6-10.4 [facility] Comment on above: Performed By: #### F T3 #### [address] [address] Manager Publishing: Erik Redding MD #### CMPF #### [address] [place], [place] [phone] Manager Publishing: Hemant Murphy MD Chloride [Moles/Vol] 101 mmol/L Normal 98-107 [facility] Comment on above: Performed By: #### F T3 #### [address] [address] Manager Publishing: Erik Redding MD #### CMPF #### [address] [place], [place] [phone] Manager Publishing: Hemant Murphy MD CO2 [Moles/Vol] 22 mmol/L Normal 20-31 [facility] Comment on above: Performed By: #### F T3 #### [facility] [address] [place] [address] Manager Publishing: Erik Redding MD #### CMPF #### [facility] [address] [place] [address] Manager Publishing: Hemant Murphy MD Creatinine [Mass/Vol] 0.54 mg/dL Normal 0.50-0.90 [facility] Comment on above: Performed By: #### F T3 #### [id number] [place], [place] [phone] Manager Publishing: Erik Redding MD #### CMPF #### [facility] [address] [place] [address] Manager Publishing: Hemant Murphy MD GFR/1.73 sq M.predicted among non-blacks MDRD (S/P/Bld) [Vol rate/Area] mL/min/{1.73_m2} Normal >60 [facility] Comment on above: Result Comment: These [...] secretion. Performed By: #### F T3 #### [facility] [address] [place] [address] Manager Publishing: Erik Redding MD #### CMPF #### [facility] [address] [place] [address] Manager Publishing: Hemant Murphy MD Glucose [Mass/Vol] 88 mg/dL Normal 70-99 [facility] Comment on above: Performed By: #### F T3 #### [address] [address] Manager Publishing: Erik Redding MD #### CMPF #### [facility] [address] [place] [address] [address] [place], [place] [phone] Manager Publishing: Hemant Murphy MD Potassium [Moles/Vol] 4.3 mmol/L Normal 3.7-5.3 [facility] Comment on above: Performed By: #### F T3 #### [address] [address] Manager Publishing: Erik Redding MD #### CMPF #### [address] [place], [place] [phone] Manager Publishing: Hemant Murphy MD Protein [Mass/Vol] 8.1 g/dL Normal 6.4-8.3 [facility] Comment on above: Performed By: #### F T3 #### [address] [address] Manager Publishing: Erik Redding MD #### CMPF #### [address] [place], [place] [phone] Manager Publishing: Hemant Murphy MD Sodium [Moles/Vol] 136 mmol/L Normal 135-144 [facility] Comment on above: Performed By: #### F T3 #### [address] [address] Manager Publishing: Erik Redding MD #### CMPF #### [address] [place], [place] [phone] Manager Publishing: Hemant Murphy MD Urea nitrogen [Mass/Vol] 11 mg/dL Normal 6-20 [facility] Comment on above: Performed By: #### F T3 #### [address] [address] Manager Publishing: Erik Redding MD #### CMPF #### [facility] [address] [place] [address] Manager Publishing: Hemant Murphy MD [facility] Metabolic Pane l, Fastingon 10-03-2022 Albumin [Mass/Vol] 4.6 g/dL 3.5 - 5.2 g/dL [facility] Albumin/Globulin [Mass ratio] 1.3 {ratio} 1.0 - 2.5 [facility] ALP [Catalytic activity/Vol] 91 U/L 35 - 104 U/L [facility] ALT [Catalytic activity/Vol] 39 U/L High 5 - 33 U/L [facility] Anion gap [Moles/Vol] 13 mmol/L 9 - 17 mmol/L [facility] AST [Catalytic activity/Vol] 34 U/L High NINF - 32 U/L [facility] Bilirubin [Mass/Vol] 0.8 mg/dL 0.3 - 1 .2 mg/dL [facility] Calcium [Mass/Vol] 9.2 mg/dL 8.6 - 10. 4 mg/dL [facility] Chloride [Moles/Vol] 101 mmol/L 98 - 10 7 mmol/L [facility] CO2 [Moles/Vol] 22 mmol/L 20 - 31 mmol/L [facility] Creatinine [Mass/Vol] 0.54 mg/dL 0.50 - 0.90 mg/dL [facility] GFR/1.73 sq M.predicted MDRD (S/P/Bld) [Vol rate/Area] - PINF [facility] Comment on above: These results are [...] 88 mg/dL 70 - 99 mg/dL [facility] Interpretation and review of laboratory results Abnormal [facility] Potassium [Moles/Vol] 4.3 mmol/L 3.7 - 5.3 mmol/L [facility] Protein [Mass/Vol] 8.1 g/dL 6.4 - 8.3 g/dL [facility] Sodium [Moles/Vol] 136 mmol/L 135 - 144 mmol/L [facility] Urea nitrogen [Mass/Vol] 11 mg/dL 6 - 20 mg/dL [facility] Urea nitrogen/Creatinine [Mass ratio] 20 mg/mg 9 - 20 [facility] Lipid Panelon 10-03-2022 Cholesterol [Mass/Vol] 172 mg/dL NINF - 200 mg/dL [facility] Comment on above: Cholesterol Guidelines: <200 Desirable 200-240 Borderline >240 Undesirable Cholesterol in HDL [Mass/Vol] 36 mg/dL Low 40 - PINF mg/dL [facility] Comment on above: HDL Guidelines: <40 Undesirable 40-59 Borderline >59 Desirable Cholesterol in LDL [Mass/Vol] 79 mg/dL 0 - 130 mg/dL [facility] Comment on above: LDL Guidelines: <100 Desirable 100-129 Near to/above Desirable 130-159 Borderline >159 Undesirable Direct (measured) LDL and calculated LDL are not interchangeable tests. Cholesterol.total/Ch olesterol in HDL [Mass ratio] 4.8 {ratio} NINF - 5 [facility] Interpretation and review of laboratory results Abnormal [facility] Triglyceride [Mass/Vol] 285 mg/dL High NINF - 150 mg/dL [facility] Comment on above: Triglyceride Guidelines: <150 Desirable 150-199 Borderline 200-499 High >499 Very high Based on AHA Guidelines for fasting triglyceride, December 2011. [facility] T3, Freeon 10-03-2022 Free T3 [Mass/Vol] 3.76 pg/mL 2.02 - 4. 43 pg/mL [facility] TSH With Reflex Ft4on 2022 TSH Qn 1.66 m[IU]/L [facility] TSH w/reflex to FT4on 2022 Thyroid Stim. Horm. 1.66 uIU/mL Normal 0.30-5.00 [facility] Comment on above: Performed By: #### T SHX #### [facility] [address] [place] [address] Manager Publishing: Hemant Murphy MD PAP ACOG PANEL 2: 21 to 29on 12-20-2021 . . Normal [facility] Comment on above: Performed By: #### [id number] #### [facility] [address] [place] [address] Dr. Sachin Pereira Age Gdln ACOG Testing - [facility] Comment on above: Performed By: #### [id number] #### [facility] [address] [place] [address] Dr. Sachin Pereira DIAGNOSIS: Comment [facility] Comment on above: Result Comment: NEGA TIVE FOR INTRAEPITHELIAL LESION OR MALIGNANCY. Performed By: #### [id number] #### [facility] [address] [place] [address] Dr. Sachin Pereira Methodology: Comment [facility] Comment on above: Result Comment: This liquid based ThinPrep(R) pap test was screened with the use of an image guided system. Performed By: #### [id number] #### [facility] [address] [place] [address] Dr. Sachin Pereira Note: Comment [facility] Comment on above: Result Comment: The Pap smear is a screening test designed to aid in the detection of premalignant and malignant conditions of the uterine cervix. It is not a diagnostic procedure and should not be used as the sole means of detecting cervical cancer. Both false-positive and false-negative reports do occur. . Performed By: #### [id number] #### [facility] [address] [place] [address] Dr. Sachin Pereira Performed by: Comment Normal [facility] Comment on above: Result Comment: Collette Holliday, Gis Scientist (ASCP) Performed By: #### [id number] #### [facility] [address] [place] [address] Dr. Sachin Pereira Reflex Criteria: Comment Normal [facility] Comment on above: Result Comment: The HPV DNA reflex criteria were not met with this specimen result therefore, no HPV testing was performed. . Performed By: #### [id number] #### [facility] [address] [address] [address] Sachin Pereira Specimen adequacy: Comment Normal [facility] Comment on above: Result Comment: Sati sfactory for evaluation. Endocervical and/or squamous metaplastic cells (endocervical component) are present. Performed By: #### [id number] #### [facility] [address] [address] [address] Sachin Pereira Vital Signs Date Time Vital Sign Value Performing Clinician Faci lity 04-09-2024 11:19-0500 Body mass index (BMI) [Ratio] 45.69 kg/m2 Jesika MARIE Work Phone: [facility] 04-09-2024 11:19-0500 Body weight 140.34 kg Jesika MARIE Work Phone: [facility] 04-09-2024 11:19-0500 Diastolic blood pressure 84 mm[Hg] Jesika MARIE Work Phone: [facility] 04-09-2024 11:19-0500 Systolic blood pressure 144 mm[Hg] Jesika MARIE Work Phone: [facility] 03-19-2024 11:03-0500 Body mass index (BMI) [Ratio] 46.04 kg/m2 Gilles Regis DO Work Phone: [facility] 03-19-2024 11:03-0500 Body weight 141.43 kg Gilles Regis DO Work Phone: [facility] 03-19-2024 11:03-0500 Diastolic blood pressure 90 mm[Hg] Gilles Regis DO Work Phone: [facility] 03-19-2024 11:03-0500 Systolic blood pressure 148 mm[Hg] Gilles Regis DO Work Phone: [facility] 02-20-2024 10:16-0500 Body mass index (BMI) [Ratio] 44.45 kg/m2 Jesika Oviedoduong MARIE Work Phone: [facility] 02-20-2024 10:16-0500 Body weight 136.53 kg Jesika Oviedoey PA Work Phone: [facility] 02-20-2024 10:16-0500 Diastolic blood pressure 84 mm[Hg] Jesika Oviedoey PA Work Phone: [facility] 02-20-2024 10:16-0500 Systolic blood pressure 124 mm[Hg] Jesika Mcknight PA Work Phone: [facility] 01-23-2024 11:02-0400 Body mass index (BMI) [Ratio] 44.3 kg/m2 Gilles Regis DO Work Phone: [facility] 01-23-2024 11:02-0400 Body weight 136.08 kg Gilles Regis DO Work Phone: [facility] 01-23-2024 11:02-0400 Diastolic blood pressure 82 mm[Hg] Gilles Regis DO Work Phone: [facility] 01-23-2024 11:02-0400 Systolic blood pressure 120 mm[Hg] Gillse Regis DO Work Phone: [facility] 12-26-2023 09:31-0400 Body mass index (BMI) [Ratio] 44.01 kg/m2 Gilles Regis DO Work Phone: [facility] 12-26-2023 09:31-0400 Body weight 135.17 kg Gilles Regis DO Work Phone: [facility] 12-26-2023 09:31-0400 Diastolic blood pressure 72 mm[Hg] Gilles Regis DO Work Phone: [facility] 12-26-2023 09:31-0400 Systolic blood pressure 120 mm[Hg] Gilles Regis DO Work Phone: [facility] 11-28-2023 08:56-0400 Body mass index (BMI) [Ratio] 44.08 kg/m2 Gilles Regis DO Work Phone: [facility] 11-28-2023 08:56-0400 Body weight 135.38 kg Gilles Regis DO Work Phone: [facility] 11-28-2023 08:56-0400 Diastolic blood pressure 70 mm[Hg] Gilles Regis DO Work Phone: [facility] 11-28-2023 08:56-0400 Systolic blood pressure 120 mm[Hg] Gilles Regis DO Work Phone: [facility] Encounters Encounter Date Encounter Type Care Provider Facility Start: 04-13-2024 End: 04-13-2024 Clinisync Result Encounter Jesika MARIE Work Phone: [facility] External Department Unsolicited Start: 04-13-2024 End: 04-13-2024 Clinisync Result Encounter Jesika MARIE Work Phone: [facility] External Department Unsolicited Start: 04-10-2024 End: 04-10-2024 Clinisync Result Encounter Jesika MARIE Work Phone: [facility] External Department Unsolicited Start: 04-10-2024 End: 04-10-2024 Clinisync Result Encounter Jesika MARIE Work Phone: [facility] External Department Unsolicited Start: 04-09-2024 End: 04-09-2024 flow sheet Jesika MARIE Work Phone: [facility] Comment on above: Third trimester preg chanel; 31 weeks gestation of ; induced hypertension, antepartum; Gestational proteinuria in third trimester; Gestational hypertension without significant proteinuria in third trimester Start: 04-09-2024 End: 04-09-2024 ambulatory JESIKA MCKNIGHT Not Available Start: 03-19-2024 End: 03-19-2024 Bamboo flowsheet Gilles Regis DO Work Phone: [facility] Start: 03-19-2024 End: 03-19-2024 [...] 02-20-2024 Bamboo flowsheet Jesika MARIE Work Phone: [facility] Start: 02-20-2024 End: 02-20-2024 Bamboo flowsheet Jesika MARIE Work Phone: [facility] Start: 02-20-2024 End: 02-20-2024 [...] Bamboo flowsheet Gilles Regis DO Work Phone: [facility] Start: 01-23-2024 End: 01-23-2024 flow sheet Gilles Rgeis DO Work Phone: [facility] Comment on above: 20 [...] encounter procedure Gilles Regis DO Work Phone: [facility] Start: 12-26-2023 End: 12-26-2023 Periodic preventive med est patient 18-39 yrs Gilles Regis DO Work Phone: [facility] Comment on above: Second [...] Start: 10-03-2022 End: 10-04-2022 ambulatory [place] [facility] Start: 10-03-2022 End: 10-03-2022 Subsequent hospital visit by physician Ny Michael VOCATIONAL REHABILITATION COUNSELOR - LEASING DIRECTOR Work Phone: [facility] Comment on above: Screening for hypoth [...] Assay of triiodothyronine t3 free Ny Michael VOCATIONAL REHABILITATION COUNSELOR - [facility] Work Phone: Start: 10-03-2022 Lipid panel Ny Michael VOCATIONAL REHABILITATION COUNSELOR - LEASING DIRECTOR Work Phone: Plan of Treatment Date Care Activity Detail Author Start: 04-23-2024 End: 04-23-2024 Patient encounter procedure 04/23/2024 8:30 AM EST Routine [facility] [address] [place] [id number] Gilles Stacy, DO [address] [place] [address] [facility] Start: 04-09-2024 End: 04-09-2025 Alanine aminotransferase [Enzymatic activity/volume] in Serum or Plasma ALT Lab Routine induced hypertension, antepartum Expected: 04/09/2024 (Approximate), Expires: 04/09/2025 [facility] Comment on above: Expected: 04/09/2024 (Approximate), Expires: 04/09/2025 Start: 04-09-2024 End: 04-09-2025 Aspartate aminotransferase [Enzymatic activity/volume] in Serum or Plasma AST Lab Routine induced hypertension, antepartum Expected: 04/09/2024 (Approximate), Expires: 04/09/2025 [facility] Comment on above: Expected: 04/09/2024 (Approximate), Expires: 04/09/2025 Start: 04-09-2024 End: 04-09-2025 CBC W Auto Differential panel - Blood CBC and differential Lab Routine induced hypertension, antepartum Expected: 04/09/2024 (Approximate), Expires: 04/09/2025 [facility] Comment on above: Expected: 04/09/2024 (Approximate), Expires: 04/09/2025 Start: 04-09-2024 End: 04-09-2025 Creatinine [Mass/volume] in Serum or Plasma Creatinine Lab Routine induced hypertension, antepartum Expected: 04/09/2024 (Approximate), Expires: 04/09/2025 [facility] Work Phone: Comment on above: Expected: [...] induced hypertension, antepartum Expected: 04/09/2024, Expires: 04/09/2025 [facility] Comment on above: Expected: 04/09/2024 , Expires: 04/09/2025 Start: 04-09-2024 End: 04-09-2025 Urate [Mass/volume] in Serum or Plasma Uric acid Lab Routine induced hypertension, antepartum Expected: 04/09/2024 (Approximate), Expires: 04/09/2025 [facility] Comment on above: Expected: 04/09/2024 (Approximate), Expires: 04/09/2025 Start: 04-09-2024 End: 04-09-2025 Urea nitrogen [Mass/volume] in Serum or Plasma BUN Lab Routine induced hypertension, antepartum Expected: 04/09/2024, Expires: 04/09/2025 [facility] Comment on above: Expected: 04/09/2024 , Expires: 04/09/2025 Start: 04-09-2024 End: 04-09-2024 Patient encounter procedure 04/09/2024 11:20 AM EST Routine [facility] [address] [place] [id number] Jesika Mcknight PA [address] [place] [address] [facility] Start: 04-09-2024 End: 04-09-2024 Professional / ancillary services management 04/09/2024 10:30 AM EST Ancillary Procedure [facility] [address] [place] [address] [facility] Start: 03-19-2024 End: 03-19-2025 [...] control unspecified Expected: 03/19/2024 (Approximate), Expires: 03/19/2025 [facility] Comment on above: Expected: 03/19/2024 (Approximate), Expires: 03/19/2025 Start: 03-19-2024 End: 03-19-2024 Patient encounter procedure [facility] Comment on above: Arrived Start: 02-20-2024 End: 02-19-2025 CBC panel - Blood by Automated count CBC Lab Routine Diabetes mellitus screening Expected: 02/20/2024 (Approximate), Expires: 02/19/2025 [facility] Work Phone: Comment on above: [...] EDT Ancillary Procedure [facility] [address] [place] [address] [facility] Start: 12-26-2023 End: 01-25-2024 Alpha fetoprotein, maternal Alpha fetoprotein, maternal Lab Routine Need for maternal serum alpha-protein (MSAFP) screening Expected: 12/26/2023 (Approximate), Expires: 01/25/2024 [facility] Comment on above: Expected: 12/26/2023 (Approximate), Expires: 01/25/2024 Start: 12-26-2023 End: 12-25-2024 US for US OB ANATOMY SINGLE W US OB CERVICAL LENGTH Imaging Routine Screening, , for anatomic survey Expected: 12/26/2023 (Approximate), Expires: 12/25/2024 [facility] Comment on above: Expected: 12/26/2023 (Approximate), Expires: 12/25/2024 Start: 12-26-2023 End: 12-26-2023 Patient encounter procedure [facility] Comment on above: Arrived Start: 12-01-2023 Influenza vaccination Influenza Vacc ine (#1) [facility] Start: 11-28-2023 End: 11-27-2024 Measurement of glucose 1 hour after glucose challenge for glucose tolerance test Glucose tolerance, 1 hour Lab Routine Diabetes mellitus screening Expected: 11/28/2023 (Approximate), Expires: 11/27/2024 [facility] Work Phone: Comment on above: Expected: 11/28/2023 (Approximate), Expires: 11/27/2024 Start: 11-28-2023 End: 11-28-2023 Patient encounter procedure [facility] Comment on above: Arrived Start: 10-09-2023 End: 10-09-2023 Patient encounter procedure 10/09/2023 Office Visit Primary Care Ny Michael, MIKAYLA - LEASING DIRECTOR [address] [place] [address] [facility] Start: 10-02-2023 Depression Screen Depression Screen [facility] Start: 10-02-2023 DTaP/Tdap/Td vaccine (1 - Tdap) DTaP/Tdap/Td vaccine (1 - Tdap) [facility] Comment on above: Postponed from 07/16 (Patient Refused) Start: 10-02-2023 Hepatitis C screening Hepatitis C sc reen [facility] Comment on above: Postponed from 07/16 (Patient Refused) Start: 10-02-2023 HIV screening HIV screen [facility] Comment on above: Postponed from 07/16 (Patient Refused) Start: 10-02-2023 HPV vaccine (1 - 2-d ose series) HPV vaccine (1 - 2-dose series) [facility] Comment on above: Postponed from 07/16 (Patient Refused) Start: 10-30-2022 Influenza vaccination Flu vaccine (# 1) [facility] Start: 05-01-2021 COVID-19 Vaccine (2 - Booster for Kinga series) COVID-19 Vaccine (2 - Booster for Kinga series) [facility] Start: 2017 Screening for malign ant neoplasm of cervix Pap smear [facility] CHLAMYDIA TRACHOMATI S (GENITO/STI) CHLAMYDIA TRACHOMATIS (GENITO/STI) Lab Routine Exposure to STD Ordered: 12/26/2023 [facility] Comment on above: Ordered: 12/26/2023 Cytology Cervical or vaginal smear or scraping study Pap Smear Pathology and Cytology Routine Well woman exam with routine gynecological exam Ordered: 12/26/2023 [facility] Comment on above: Ordered: 12/26/2023 Neisseria gonorrhoea e DNA [Presence] in Unspecified specimen by SHANNA with probe detection Neisseria gonorrhea DNA probe, direct Lab Routine Exposure to STD Ordered: 12/26/2023 [facility] Comment on above: Ordered: 12/26/2023 SURESWAB(R) ADVANCED VAGINITIS PLUS, TMA SURESWAB(R) ADVANCED VAGINITIS PLUS, TMA Pathology and Cytology Routine Exposure to STD Ordered: 12/26/2023 [facility] Work Phone: Comment on above: Ordered: 12/26/2023 Immunizations Immunization Date Immunization Notes Care Provider Fa andrés 03-06-2021 COVID-19, J&J, (age 18y+), IM, 0.5 mL Ny Michael VOCATIONAL REHABILITATION COUNSELOR - LEASING DIRECTOR Work Phone: [facility] Payers Date Payer Category Payer Private Health Insurance [id number] 2022 Private Health Insurance [id number] 1996 Unknown [id number] 2.16.84 [id number] 1996 Unknown [id number] 2.16.84 [id number] 1996 Unknown [id number] 2.16.8 [id number] 1996 Unknown [id number] 2.16.84 [id number] 1996 Unknown [id number] 2.16.84 [id number] 1996 Unknown [id number] 2.16.84 [id number] 1996 Unknown [id number] 2.16.84 [id number] 1996 Unknown [id number] 2.16.84 [id number] 1996 Unknown [id number] 2.16.84 [id number] 1996 Unknown [id number] 2.16.84 [id number] 1996 Unknown [id number] 2.16.84 [id number] 1959 Self-pay [id number] 1959 Unknown [id number] Social History Date Type Detail Facility Start: 10-01-2022 Tobacco smoking status TNIS Ex-smoker [facility] End: 05-30-2021 History of tobacco use Current smoker [facility] End: 05-30-2021 History of tobacco use Cigarette Smoker [facility] History of tobacco use Tobacco U se Types Packs/Day Years Used Date Smoking Tobacco: Former Cigarettes 0.5 5 Quit: 05/2021 E-Cigarettes Smokeless Tobacco: Never [facility] Start: 10-01-2022 Cigarettes smoked current (pack per day) - Reported 0.5 [facility] Start: 10-01-2022 Tobacco use and exposure Smokeless tobacco non-user [facility] Start: 10-01-2022 Alcohol intake Ex-drinker (finding) [facility] Start: 10-01-2022 History SDOH Physical Activity DPW 3 [facility] [facility] Start: 10-01-2022 History SDOH Physical Activity MPS 6 [facility] Start: 10-01-2022 History SDOH Financial 5 [facility] [facility] Start: 10-01-2022 History SDOH Food Worry 1 [employer] Start: 10-01-2022 History SDOH Transport Non-Med 2 [facility] Start: 10-01-2022 Alcohol Comment Socially [facility] [facility] Start: 1996 Sex Assigned At Female [facility] [facility] Tobacco smoking stat [facility] Tobacco smoking consumption unknown [facility] Start: 09-17-2023 [facility] Start: 12-11-2022 Gender identity Identifies as female gender (finding) [facility] Start: 12-11-2022 Sexual orientation Heterosexual (finding) [facility] Medical Equipment Procedure Code Equipment Code Equipment Origin al Text Equipment Identifier Dates 1 strip by In Vi tro route Daily Use in the morning prior to breakfast, 1 hour after each meal for a total of 4times daily. [id number] Start: 03-16-2024 End: 04-15-2024 1 each by In Vit ro route Daily Use to check FSBS four times daily [id number] Start: 03-16-2024 End: 04-15-2024 Goals Date Patient [...] mg, Oral, Daily Blood Glucose Monitoring Suppl (Moozey Glucometer) w/Device kit 1 kit, Does not [...] CYNTHIA Parker documented in this encounter [facility] 03-19-2024 History of Presen t illness [...] mg, Oral, Daily Blood Glucose Monitoring Suppl (Moozey Glucometer) w/Device kit 1 kit, Does not [...] Stacy DO documented in this encounter [facility] 02-20-2024 History of Presen t illness [...] nursing note reviewed. Exam conducted with a yarn cleaner present. Vitals: Estimated body mass index [...] hour glucose order to have done at [facility]. Orders Placed This Encounter Procedures CBC Glucose tolerance, 1 hour POCT urinalysis dipstick manually resulted Follow Up: Patient is to return to office in 2 week for routine OB appointment. Documented by Giovana Azar MA on behalf of: CYNTHIA Parker documented in this encounter [facility] 01-23-2024 History of Presen t illness [...] nursing note reviewed. Exam conducted with a yarn cleaner present. Vitals: Estimated body mass index [...] Stacy DO documented in this encounter [facility] 12-26-2023 History of Presen t illness [...] nursing note reviewed. Exam conducted with a yarn cleaner present. Vitals: Estimated body mass index [...] Stacy DO documented in this encounter [facility] 11-28-2023 History of Presen t illness [...] nursing note reviewed. Exam conducted with a yarn cleaner present. Vitals: Estimated body mass index [...] or undercooked meat, and stay away from [facility]. Patient has been consulted regarding any further [...] Gilles Stacy DO documented in this encounter [facility] Evaluation note Diagnosis Screening for hypothyroidism Screening for thyroid disorder Diabetes mellitus screening Screening for diabetes mellitus Lipid screening Screening for lipoid disorders documented in this encounter [facility]* Diagnosis 20 weeks gestation of Second trimester state, incidental documented in this encounter [facility]* Diagnosis Second trimester state, incidental 24 weeks gestation of Diabetes mellitus screening Screening for diabetes mellitus documented in this encounter [facility] note* Diagnosis 12 weeks gestation of Diabetes mellitus screening Screening for diabetes mellitus documented in this encounter [facility]* Diagnosis Second trimester state, incidental Well woman exam with routine gynecological exam Routine gynecological examination Exposure to STD Need for maternal serum alpha-protein (MSAFP) screening Screening, , for anatomic survey Encounter for anatomic survey documented in this encounter [facility] HealthcareEvaluation note* Diagnosis 28 weeks gestation [...] in third trimester documented in this encounter [facility] Summary Purpose Family History No [...] DATE CREATED AUTHOR AUTHOR'S ORGANIZ ATION 04/14/2024 [facility] [employer] Care Teams (unrecognized sec tion and content) [employer] Relationship Specialty Start Date End Date Ny Michael, VOCATIONAL REHABILITATION COUNSELOR - LEASING DIRECTOR [address] [place] [address] PCP - General Certified Nurse Practitioner 10/01/22 [...] BE BASED ON THE PRIMARY CLINICAL RECORDS. [employer] provides no warranty or guarantee of the accuracy or completeness of information in this document.
--- NOTE | 2024-04-23 13:51 | US_ITS ---
[address] [address] Patient Name: DOREEN MARQUEZ MRN: [id number] date: 1995 Sex: F Assigned Patient Location: [facility] Current Patient Location: [facility] Accession/Order Number: [id number] Exam Date: 04/23/2024 13:55 Report Date: 04/23/2024 14:33 At the request of: GILLES DIEGO Procedure: US OB BPP w non-stress EXAMINATION: US OB BPP w non-stress HISTORY: GESTATIONAL DIABETES MELLITUS O24.419 COMPARISON: No relevant comparison available. TECHNIQUE: Ultrasound biophysical profile was performed in the radiology department. non-reactive stress testing was performed by nursing staff in the birthing center. FINDINGS: BREATHING MOVEMENTS: 2 GROSS BODY MOVEMENTS: 2 TONE: 2 QUALITATIVE AMNIOTIC FLUID VOLUME: 2 PRESENTATION: CEPHALIC HEART RATE: 141.36 bpm AMNIOTIC FLUID VOLUME: 20.1 cm GESTATIONAL AGE: 33 weeks 2 days US/US OB BPP w non-stress IMPRESSION: Total biophysical profile score: 8 Electronically authenticated by: NAYA FREEMAN Date: 04/23/2024 14:33
[2024-04-23 15:06] VITALS: BP 146/76; PULSE 83
== END 2024-04-23 15:10 | disposition home or self-care (01) ==
LOC: US 01:18 → FBC 13:51
PROVIDERS: Visit Provider Obstetrics & Gynecology
DX: O24.419 Gestational diabetes mellitus in pregnancy, unspecified control (principal); Z3A.33 33 weeks gestation of pregnancy
CPT/HCPCS: 76818

== ENCOUNTER 2024-04-27 01:14 | Outpatient (OUT) | payer OTHER, SELFPAY ==
--- OUTSIDE RECORDS SUMMARY | 2024-04-27 01:17 | XMS_ITS | CCD ---
Author Organization [facility] Care Team Providers Care Twisthand Name Role Phone FIDENCIO ANDRES Primary Care Unavailable FIDENCIO ANDRES Attending Unavailable FIDENCIO ANDRES Admitting Unavailable REGIS, DR CAMPOVERDE Admitting Unavailable REGIS, DR CAMPOVERDE Consulting Unavailable REGIS, DR CAMPOVERDE Attending Unavailable FIDENCIO ANDRES Primary Care Unavailable Stephania SPECIAL DEPUTY SHERIFF [place] CHEN Primary Care [facility] [place] MICHAEL Referring Unavailable [place] MICHAEL Primary Care Unavailable Unavailable Primary Care Provider UnavailGILLES Jenkins Attending Unavailable GILLES STACY Attending Unavailable GILLES STACY Attending Unavailable REGISGILLES EVANGELISTA Attending Unavailable JESIKA MCKNIGHT Attending Unavailable REGISGILLES EVANGELISTA Attending Unavailable JESIKA MCKNIGHT Attending Unavailable Medications Current Medications Medication Drug Class(es) Dates Sig (Normalized) Sig (Original) aspirin 81 mg delayed release oral tablet (7 sources) Platelet Aggregation Inhibitor, Nonsteroidal Anti-inflammatory Drug take 1 tablet by mouth once daily aspirin 81 MG EC tablet Take 81 mg by mouth Daily Active Blood Glucose Monitoring Suppl (D-Care Glucometer) w/Device kit (8 sources) Start: 03-16-2024 End: 03-16-2025 Blood Glucose [...] Active isopropyl alcohol 0.7 ml/ml medicated pad (8 sources) Start: 03-16-2024 Alcohol Swabs (Alcohol Prep Pad) 70 % pads Indications: Gestational diabetes mellitus (GDM), antepartum, gestational diabetes method of control unspecified , Elevated glucose tolerance test Apply 1 Pad topically Daily Use four times daily to check FSBS. 150 each 3 03/16/2024 Active labetalol hydrochloride 100 mg oral tablet (5 sources) beta-Adrenergic Darlene Start: 04-09-2024 End: 07-08-2024 [...] weeks gestation of ] 04-09-2024 Episodic Unclassified (19 sources) OB Reminders Onset: 12-26-2023 12-26-2023 Past or Other Problems Problem Classification Problem Date Documented Da te Episodic/Chronic Residual codes; unclassified (2 sources) Gestation period, 12 weeks; Translations: [12 weeks gestation of ] 11-28-2023 Episodic Results Test Name Value Interpretation Reference Range Facility TB[facility] TOTAL PROTEIN 24 HOUR UR INEon 04-13-2024 Interpretation and review of laboratory results Abnormal [facility] Protein (U) [Mass/Vol] 21.4 mg/dL High NINF - 11.9 mg/dL [facility] TOTAL PROTEIN 24 HOUR URINE 310.3 High [facility] TOTAL VOLUME 24 HOUR URINE 1450 mL/24hr [facility] ALL CBC WITH AUTO DIFFon BASOPHILS ABSOLUTE AUTO 0.1 [facility] Basophils/100 WBC (Bld) 0.5 % 0.2 - 2.0 % [facility] Eosinophils/100 WBC (Bld) 1.4 % 0.9 - 7.0 % [facility] Erythrocyte distribution width (RBC) [Ratio] 15.1 % High 11.0 - 15.0 % [facility] Hematocrit (Bld) [Volume fraction] 36.2 % 36.0 - 48.0 % [facility] Hemoglobin (Bld) [Mass/Vol] 11.5 g/dL Low 12.0 - 16.0 g/dL [facility] IMMATURE GRANULOCYTES ABS AUTO 0.05 High [facility] Immature granulocytes/100 WBC (Bld) 0.3 % 0.0 - 0.5 % [facility] Interpretation and review of laboratory results Abnormal [facility] LYMPHOCYTES ABSOLUTE AUTO 2.9 [facility] Lymphocytes/100 WBC (Bld) 19.5 % Low 20.5 - 60.0 % [facility] MCH (RBC) [Entitic mass] 25 pg Low 26.7 - 34.0 pg [facility] MCHC (RBC) [Mass/Vol] 31.8 g/dL 29.9 - 35.2 g/dL [facility] MCV (RBC) [Entitic vol] 78.7 fL Low 81.0 - 99.0 fL [facility] MONOCYTES ABSOLUTE AUTO 1.2 High [facility] Monocytes/100 WBC (Bld) 7.6 % 1.7 - 12.0 % [facility] NEUTROPHILS ABSOLUTE AUTO 10.6 High [facility] Neutrophils/100 WBC (Bld) 70.7 % 43.0 - 75.0 % [facility] Platelet mean volume (Bld) [Entitic [...] 2177 cm / 4 lbs, 12 oz (6683-4060 gm) [place] Normal: 1812 gm (0634-2271 gm) [place] Wt%: >97% for 31.3 wks [...] UA Negative Negative - 4(70) +++ mg/dL [facility] Blood, UA Negative Negative - 50 Horacio/mcL [facility] Clarity, UA Clear [facility] Color, UA Yellow [facility] Glucose, UA Negative Negative - 1999(110) ++++ mg/dL [facility] Interpretation and review of laboratory results Abnormal [facility] Ketones, UA Negative Negative - 160(16) ++++ mg/dL [facility] Leukocytes, UA Negative Negative - 500+++ Nica/mcL [facility] Nitrite, UA Negative Negative - Positive [facility] pH, UA 6.5 5 - 9 [facility] e Protein, UA Positive Negative - 1999(20) ++++ mg/dL [facility] Spec Grav, UA 1.03 1 - 1.03 [facility] Urobilinogen, UA 1.0 0.2 - 12 mg/dL [facility] Urinalysis macro (dipstick) panel (U)on 03-19-2024 Bilirubin, UA Negative Negative - 4(70) +++ mg/dL [facility] Blood, UA Negative Negative - 50 Horacio/mcL [facility] Clarity, UA Clear [facility] Health[facility] re Color, UA Straw [facility] Glucose, UA Negative Negative - 1999(110) ++++ mg/dL [facility] Interpretation and review of laboratory results Abnormal [facility] Ketones, UA Negative Negative - 160(16) ++++ mg/dL [facility] Leukocytes, UA Trace Negative - 500+++ Nica/mcL [facility] Nitrite, UA Negative Negative - Positive [facility] pH, UA 6 5 - 9 [facility] Protein, UA Negative Negative - 1999(20) ++++ mg/dL [facility] Spec Grav, UA 1.03 1 - 1.03 [facility] Urobilinogen, UA 0.2 0.2 - 12 mg/dL [facility] GLUCOSE TOLERANCE 3 HOURon 1 05-13-2023 GLUCOSE TOLERANCE 3 HOUR High mg/dL [facility] Comment on above: GLU FAST 108H (<95) Col: 03/12/24 0757 GLU 1HR 190H (<180) Col: 03/12/24 0900 GLU 2HR 172H (<155) Col: 03/12/24 1000 GLU 3HR 121 (<140) Col: 03/12/24 1100 Interpretation and review of laboratory results Abnormal [facility] e ALL CBC WITH AUTO DIFFon BASOPHILS ABSOLUTE AUTO 0.1 [facility] Basophils/100 WBC (Bld) 0.5 % 0.2 - 2.0 % [facility] Eosinophils/100 WBC (Bld) 2.4 % 0.9 - 7.0 % [facility] Erythrocyte distribution width (RBC) [Ratio] 14.7 % 11.0 - 15.0 % [facility] Hematocrit (Bld) [Volume fraction] 36.9 % 36.0 - 48.0 % [facility] Hemoglobin (Bld) [Mass/Vol] 11.7 g/dL Low 12.0 - 16.0 g/dL [facility] IMMATURE GRANULOCYTES ABS AUTO 0.07 High [facility] Immature granulocytes/100 WBC (Bld) 0.5 % 0.0 - 0.5 % [facility] Interpretation and review of laboratory results Abnormal [facility] LYMPHOCYTES ABSOLUTE AUTO 3.3 [facility] Lymphocytes/100 WBC (Bld) 22.6 % 20.5 - 60.0 % [facility] MCH (RBC) [Entitic mass] 25.6 pg Low 26.7 - 34.0 pg [facility] MCHC (RBC) [Mass/Vol] 31.7 g/dL 29.9 - 35.2 g/dL [facility] MCV (RBC) [Entitic vol] 80.7 fL Low 81.0 - 99.0 fL [facility] MONOCYTES ABSOLUTE AUTO 1 High [facility] Monocytes/100 WBC (Bld) 6.7 % 1.7 - 12.0 % [facility] NEUTROPHILS ABSOLUTE AUTO 9.7 High [facility] Neutrophils/100 WBC (Bld) 67.3 % 43.0 - 75.0 % [facility] Platelet mean volume (Bld) [Entitic vol] 10.4 fL 9.5 - 13.5 fL [facility] are [facility] EO # 0.3 [facility] PLT 339 [facility] RBC 4.57 [facility] WBC 14.4 High [facility] Urinalysis macro (dipstick) panel (U)on 02-20-2024 Bilirubin, UA Negative Negative - 4(70) +++ mg/dL [facility] Blood, UA Negative Negative - 50 Horacio/mcL [facility] Clarity, UA Clear [facility] Color, UA Yellow [facility] Glucose, UA Negative Negative - 1999(110) ++++ mg/dL [facility] Interpretation and review of laboratory results Abnormal [facility] Ketones, UA Negative Negative - 160(16) ++++ mg/dL [facility] Leukocytes, UA Trace Negative - 500+++ Nica/mcL [facility] Nitrite, UA Negative Negative - Positive [facility] pH, UA 7 5 - 9 [facility] e Protein, UA Negative Negative - 1999(20) ++++ mg/dL [facility] Spec Grav, UA 1.025 1 - 1.03 [facility] Urobilinogen, UA 0.2 0.2 - 12 mg/dL [facility] Urinalysis macro (dipstick) panel (U)on 01-23-2024 Bilirubin, UA Negative Negative - 4(70) +++ mg/dL [facility] Blood, UA Negative Negative - 50 Horacio/mcL [facility] Clarity, UA Clear [facility] Color, UA Yellow [facility] Glucose, UA Negative Negative - 1999(110) ++++ mg/dL [facility] Interpretation and review of laboratory results Abnormal [facility] Ketones, UA Negative Negative - 160(16) ++++ mg/dL [facility] Leukocytes, UA Trace Negative - 500+++ Nica/mcL [facility] Nitrite, UA Negative Negative - Positive [facility] pH, UA 6.5 5 - 9 [facility] e Protein, UA Negative Negative - 1999(20) ++++ mg/dL [facility] Spec Grav, UA 1.015 1 - 1.03 [facility] Urobilinogen, UA 0.2 0.2 - 12 mg/dL [facility] IGP,APTIMA HPV,AGE GDLNon AGE GDLN ACOG TESTING Note . [facility] Comment on above: TESTS RESULT FLAG UN ITS REF RANGE LAB Clinician Provided Cytology Information Source.............Cervix Other.............. No. of containers..01 ThinPrep Vial Age Raul RODARTE Micaela... FLAG LEGEND: L-Low Normal,H-High Normal,LL-Alert Low,HH-Alert High <-Panic Low,>-Panic High,A-Abnormal,AA-Critical Abnormal Performed at: 01 =G [address] [place] [address] Vania Cabezas MD, IGP, RFX APTIMA HPV ASCU Note . [facility] Comment on above: TESTS RESULT FLAG UN ITS REF RANGE LAB DIAGNOSIS: 02 NEGATIVE FOR INTRAEPITHELIAL LESION OR MALIGNANCY. Specimen adequacy: 02 Satisfactory for evaluation. Endocervical and/or squamous metaplastic cells (endocervical component) are present. Performed by: Riley Franklin, Head Correction Officer ([facility]) . 02 Note: Note 02 The [...] <-Panic Low,>-Panic High,A-Abnormal,AA-Critical Abnormal Performed at: [address] [phone] Vania Cabezas MD, Performed at: = - [address] [id number] Car Pre Cooler: Vania Cabezas MD, Phone: [phone] Performed at: [address] [id number] Car Pre Cooler: Vania Cabezas MD, Phone: [phone] SPATULA[facility]ALONE [facility] [employer] e Urinalysis macro (dipstick) panel (U)on 12-26-2023 Bilirubin, UA Negative Negative - 4(70) +++ mg/dL [facility] Blood, UA Negative Negative - 50 Horacio/mcL [facility] Clarity, UA Clear [facility] [employer] re Color, UA Yellow [facility] [employer] e Glucose, UA Negative Negative - 2000(110) ++++ mg/dL [facility] Interpretation and review of laboratory results Normal [facility] Ketones, UA Positive Negative - 160(16) ++++ mg/dL [facility] Comment on above: trace Leukocytes, UA Positive Negative - 500+++ Nica/mcL [facility] Comment on above: small Nitrite, UA Negative Negative - Positive [facility] pH, UA 6.0 5 - 9 [facility] Protein, UA Negative Negative - 1999(20) ++++ mg/dL [facility] Spec Grav, UA 1.015 1 - 1.03 [facility] Urobilinogen, UA 0.2 0.2 - 12 mg/dL [facility] GLUCOSE 1 HOURon 12-11-2023 Glucose [Mass/Vol] 131 mg/dL High NINF - 13 0 mg/dL [facility] Interpretation and review of laboratory results Abnormal [facility] No Panel Informationon 11-28 STAPHYLOCOCCUS EPIDERMIDIS, HAEMOLYTICUS, LUGDUNENSIS, SAPROPHYTICUS (URINA 0.000 [facility] STAPHYLOCOCCUS EPIDERMIDIS, HAEMOLYTICUS, LUGDUNENSIS, SAPROPHYTICUS (URINA Not detected [facility] URINARY TRACT INFECTION (HTR X)on 11-29-2023 ACINETOBACTER BAUMANII 0.000 [facility] ACINETOBACTER BAUMANII Not detected [facility] CHRISTIAN ALBICANS, PARAPSILOSIS, TROPICALIS 0.000 [facility] CHRISTIAN ALBICANS, PARAPSILOSIS, TROPICALIS Not detected [facility] CHRISTIAN GLABRATA 0.000 [facility] CHRISTIAN GLABRATA Not detected [facility] CHRISTIAN KRUSEI 0.000 [facility] CHRISTIAN KRUSEI Not detected [facility] CITROBACTER FREUNDII 0.000 [facility] CITROBACTER FREUNDII Not detected NO [facility] ENTEROBACTER AEROGENES, CLOACAE 0.[address] [facility] re ENTEROBACTER AEROGENES, CLOACAE Not detected [facility] re ENTEROCOCCUS FAECALIS, FAECIUM 0.000 [facility] e ENTEROCOCCUS FAECALIS, FAECIUM Not detected [facility] e ESCHERICHIA COLI 0.000 [facility] ESCHERICHIA COLI Not detected [facility] H e[facility] KLEBSIELLA PNEUMONIAE, OXYTOCA 0.000 [facility] are KLEBSIELLA PNEUMONIAE, OXYTOCA Not detected [facility] are MORGANELLA MORGANII 0.000 [facility] MORGANELLA MORGANII Not detected [facility] PROTEUS MIRABILIS, VULGARIS 0.000 [facility] PROTEUS MIRABILIS, VULGARIS Not detected [facility] PSEUDOMONAS AERUGINOSA 0.000 [facility] PSEUDOMONAS AERUGINOSA Not detected [facility] SERRATIA MARCESCENS 0.000 [facility] SERRATIA MARCESCENS Not detected [facility] STAPHYLOCOCCUS AUREUS 0.000 [facility] STAPHYLOCOCCUS AUREUS Not detected [facility] STREPTOCOCCUS AGALACTIAE (GROUP B STREP) 0.000 [facility] STREPTOCOCCUS AGALACTIAE (GROUP B STREP) Not detected [facility] STREPTOCOCCUS PYOGENES (GROUP A STREP) 0.000 [facility] STREPTOCOCCUS PYOGENES (GROUP A STREP) Not detected [facility] Urinalysis macro (dipstick) panel (U)on 11-28-2023 Bilirubin, UA Positive Negative - 4(70) +++ mg/dL [facility] Comment on above: small Blood, UA Negative Negative - 50 Horacio/mcL [facility] Clarity, UA Clear [facility] re Color, UA Yellow [facility] Glucose, UA Negative Negative - 1999(110) ++++ mg/dL [facility] Interpretation and review of laboratory results Abnormal [facility] Ketones, UA Negative Negative - 160(16) ++++ mg/dL [facility] Leukocytes, UA Trace Negative - 500+++ Nica/mcL [facility] Nitrite, UA Negative Negative - Positive [facility] pH, UA 7.0 5 - 9 [facility] Protein, UA Trace Negative - 1999(20) ++++ mg/dL [facility] Spec Grav, UA 1.025 1 - 1.03 [facility] Urobilinogen, UA 0.2 0.2 - 12 mg/dL [facility] ALL CBC WITH AUTO DIFFon BASOPHILS ABSOLUTE AUTO 0.1 [facility] Basophils/100 WBC (Bld) 0.4 % 0.2 - 2.0 % [facility] Eosinophils/100 WBC (Bld) 1.5 % 0.9 - 7.0 % [facility] Erythrocyte distribution width (RBC) [Ratio] 14.8 % 11.0 - 15.0 % [facility] Hematocrit (Bld) [Volume fraction] 39.4 % 36.0 - 48.0 % [facility] Hemoglobin (Bld) [Mass/Vol] 12.8 g/dL 12.0 - 16.0 g/dL [facility] IMMATURE GRANULOCYTES ABS AUTO 0.04 High [facility] Immature granulocytes/100 WBC (Bld) 0.3 % 0.0 - 0.5 % [facility] Interpretation and review of laboratory results Abnormal [facility] LYMPHOCYTES ABSOLUTE AUTO 3.4 [facility] Lymphocytes/100 WBC (Bld) 26.5 % 20.5 - 60.0 % [facility] MCH (RBC) [Entitic mass] 25.7 pg Low 26.7 - 34.0 pg [facility] MCHC (RBC) [Mass/Vol] 32.5 g/dL 29.9 - 35.2 g/dL [facility] MCV (RBC) [Entitic vol] 79.0 fL Low 81.0 - 99.0 fL [facility] MONOCYTES ABSOLUTE AUTO 1.0 High [facility] Monocytes/100 WBC (Bld) 7.4 % 1.7 - 12.0 % [facility] NEUTROPHILS ABSOLUTE AUTO 8.3 High [facility] Neutrophils/100 WBC (Bld) 63.9 % 43.0 - 75.0 % [facility] Platelet mean volume (Bld) [Entitic vol] 10.6 fL 9.5 - 13.5 fL [facility] are [facility]H EO # 0.2 [facility] TB PLT 345 [facility] TB RBC 4.99 [facility] e TB WBC 12.9 High [facility] e Lipid Profileon 10-04-2022 Cholesterol [Mass/Vol] 172 mg/dL Normal <200 [facility] Comment on above: Result Comment: Cholesterol Guidelines: <200 Desirable 200-240 Borderline >240 Undesirable Performed By: #### L IPR #### [employer] [facility] [place] [address] Car Pre Cooler: Erik Redding MD Cholesterol in HDL [Mass/Vol] 36 mg/dL Low >40 [facility] Comment on above: Result Comment: HDL Guidelines: <40 Undesirable 40-59 Borderline >59 Desirable Performed By: #### L IPR #### [employer] [address] [place], [place] [id number] Car Pre Cooler: Erik Redding MD Cholesterol in LDL [Mass/Vol] 79 mg/dL Normal 0-130 [facility] Comment on above: Result Comment: LDL Guidelines: <100 Desirable 100-129 Near to/above Desirable 130-159 Borderline >159 Undesirable Direct (measured) LDL and calculated LDL are not interchangeable tests. Performed By: #### L IPR #### [address] [address] Car Pre Cooler: Erik Redding MD Cholesterol.total/Ch olesterol in HDL [Mass ratio] 4.8 {ratio} Normal <5 [facility] Comment on above: Performed By: #### L IPR #### [address] [address] Car Pre Cooler: Erik Redding MD Triglyceride [Mass/Vol] 285 mg/dL High <150 [facility] Comment on above: Result Comment: Triglyceride Guidelines: <150 Desirable 150-199 Borderline 200-499 High >499 Very high Based on AHA Guidelines for fasting triglyceride, December 2011. Performed By: #### L IPR #### [address] [address] Car Pre Cooler: Erik Redding MD T3, Freeon 10-04-2022 Free T3 [Mass/Vol] 3.76 pg/mL Normal 2.02-4.43 [facility] Comment on above: Performed By: #### F T3 #### [address] [address] Car Pre Cooler: Erik Redding MD #### CMPF #### [facility] [address] [place] [address] Dr. [place] [phone] ( Car Pre Cooler: Hemant Murphy MD Comp Metabol,Fasting 10-03 Albumin [Mass/Vol] 4.6 g/dL Normal 3.5-5.2 [facility] Comment on above: Performed By: #### F T3 #### [address] [address] Car Pre Cooler: Erik Redding MD #### CMPF #### [facility] [address] [place], [place] [phone] Car Pre Cooler: Hemant Murphy MD Albumin/Glob Ratio 1.3 Normal 1.0-2.5 [facility] Comment on above: Performed By: #### F T3 #### [address] [address] Car Pre Cooler: Erik Redding MD #### CMPF #### [facility] [address] [place], [place] [phone] Car Pre Cooler: Hemant Murphy MD Alkaline Phos 91 U/L Normal 35-104 [facility] Comment on above: Performed By: #### F T3 #### [address] [address] Car Pre [employer]er: Erik Redding MD #### CMPF #### [facility] [address] [place] [address] Dr. [place], [place] [phone] Car Pre Cooler: Hemant Murphy MD ALT [Catalytic activity/Vol] 39 U/L High 5-33 [facility] Comment on above: Performed By: #### F T3 #### [address] [address] Car Pre Cooler: Erik Redding MD #### CMPF #### [facility] [address] [place] [address] Dr. [place], [place] [phone] Car Pre Cooler: Hemant Murphy MD Anion gap [Moles/Vol] 13 mmol/L Normal 9-17 [facility] Comment on above: Performed By: #### F T3 #### [address] [address] Car Pre Cooler: Erik Redding MD #### CMPF #### [facility] [address] [place] [address] Dr. [place], [place] [phone] Car Pre Cooler: Hemant Murphy MD AST [Catalytic activity/Vol] 34 U/L High <32 [facility] Comment on above: Performed By: #### F T3 #### [address] [address] Car [employer]er: Erik Redding MD #### CMPF #### [facility] [address] [place], [place] [phone] Car Pre Cooler: Hemant Murphy MD Bilirubin [Mass/Vol] 0.8 mg/dL Normal 0.3-1.2 [facility] Comment on above: Performed By: #### F T3 #### [address] [address] Car Pre Cooler: Erik Redding MD #### CMPF #### [address] [place], [place] [phone] Car Pre Cooler: Hemant Murphy MD BUN/CRE Ratio 20 Normal 9-20 [facility] Comment on above: Performed By: #### F T3 #### [address] [address] Car Pre Cooler: Erik Redding MD #### CMPF #### [address] [place], [place] [phone] Car Pre Cooler: Hemant Murphy MD Calcium [Mass/Vol] 9.2 mg/dL Normal 8.6-10.4 [facility] Comment on above: Performed By: #### F T3 #### [address] [address] Car Pre Cooler: Erik Redding MD #### CMPF #### [facility] [address] [place] [address] Dr. [place], [place] [phone] Car Pre Cooler: Hemant Murphy MD Chloride [Moles/Vol] 101 mmol/L Normal 98-107 [facility] Comment on above: Performed By: #### F T3 #### [address] [address] Car Pre Cooler: Erik Redding MD #### CMPF #### [address] [place], [place] [phone] Car Pre Cooler: Hemant Murphy MD CO2 [Moles/Vol] 22 mmol/L Normal 20-31 [facility] Comment on above: Performed By: #### F T3 #### [facility] [address] [place] [address] Car Pre Cooler: Erik Redding MD #### CMPF #### [facility] [address] [place] [address] Car Pre Cooler: Hemant Murphy MD Creatinine [Mass/Vol] 0.54 mg/dL Normal 0.50-0.90 [facility] Comment on above: Performed By: #### F T3 #### [facility] [address] [place], [place] [phone] Car Pre Cooler: Erik Redding MD #### CMPF #### [facility] [address] [place] [address] [place] [address] Car Pre Cooler: Hemant Murphy MD GFR/1.73 sq M.predicted among non-blacks MDRD (S/P/Bld) [Vol rate/Area] mL/min/{1.73_m2} Normal >60 [facility] Comment on above: Result Comment: These [...] secretion. Performed By: #### F T3 #### [facility] [address] [place] [address] Car Pre Cooler: Erik Redding MD #### CMPF #### [facility] [address] [place] [address] Car Pre Cooler: Hemant Murphy MD Glucose [Mass/Vol] 88 mg/dL Normal 70-99 [facility] Comment on above: Performed By: #### F T3 #### [address] [address] [employer] Pre [employer]er: Erik Redding MD #### CMPF #### [facility] [facility] [address] [place], [place] [id number] Car Pre Cooler: Hemant Murphy MD Potassium [Moles/Vol] 4.3 mmol/L Normal 3.7-5.3 [facility] Comment on above: Performed By: #### F T3 #### [address] [address] Car Pre Cooler: Erik Redding MD #### CMPF #### [facility] [address] [place] [address] Dr. [place], [place] [phone] Car Pre Cooler: Hemant Murphy MD Protein [Mass/Vol] 8.1 g/dL Normal 6.4-8.3 [facility] Comment on above: Performed By: #### F T3 #### [address] [address] Car Pre Cooler: Erik Redding MD #### CMPF #### [facility] [address] [place] [address] Dr. [place], [place] [phone] Car Pre Cooler: Hemant Murphy MD Sodium [Moles/Vol] 136 mmol/L Normal 135-144 [facility] Comment on above: Performed By: #### F T3 #### [address] [address] Car Pre Cooler: Erik Redding MD #### CMPF #### [facility] [address] [place] [address] Dr. [place], [place] [id number] Car Pre Cooler: Hemant Murphy MD Urea nitrogen [Mass/Vol] 11 mg/dL Normal 6-20 [facility] Comment on above: Performed By: #### F T3 #### [address] [address] Car Pre Cooler: Erik Redding MD #### CMPF #### [facility] [address] [place] [address] Car Pre Cooler: Hemant Murphy MD [facility] Metabolic Pane l, Fastingon 10-03-2022 Albumin [Mass/Vol] 4.6 g/dL 3.5 - 5.2 g/dL [facility] Albumin/Globulin [Mass ratio] 1.3 {ratio} 1.0 - 2.5 [facility] ALP [Catalytic activity/Vol] 91 U/L 35 - 104 U/L [facility] ALT [Catalytic activity/Vol] 39 U/L High 5 - 33 U/L [facility] Anion gap [Moles/Vol] 13 mmol/L 9 - 17 mmol/L [facility] AST [Catalytic activity/Vol] 34 U/L High NINF - 32 U/L [facility] Bilirubin [Mass/Vol] 0.8 mg/dL 0.3 - 1 .2 mg/dL [facility] Calcium [Mass/Vol] 9.2 mg/dL 8.6 - 10. 4 mg/dL [facility] Chloride [Moles/Vol] 101 mmol/L 98 - 10 7 mmol/L [facility] CO2 [Moles/Vol] 22 mmol/L 20 - 31 mmol/L [facility] Creatinine [Mass/Vol] 0.54 mg/dL 0.50 - 0.90 mg/dL [facility] GFR/1.73 sq M.predicted MDRD (S/P/Bld) [Vol rate/Area] - PINF [facility] Comment on above: These results are not [...] [Mass/Vol] 88 mg/dL 70 - 99 mg/dL [facility] Interpretation and review of laboratory results Abnormal [facility] Potassium [Moles/Vol] 4.3 mmol/L 3.7 - 5.3 mmol/L [facility] Protein [Mass/Vol] 8.1 g/dL 6.4 - 8.3 g/dL [facility] Sodium [Moles/Vol] 136 mmol/L 135 - 144 mmol/L [facility] Urea nitrogen [Mass/Vol] 11 mg/dL 6 - 20 mg/dL [facility] Urea nitrogen/Creatinine [Mass ratio] 20 mg/mg 9 - 20 [facility] Lipid Panelon 10-03-2022 Cholesterol [Mass/Vol] 172 mg/dL NINF - 200 mg/dL [facility] Comment on above: Cholesterol Guidelines: <200 Desirable 200-240 Borderline >240 Undesirable Cholesterol in HDL [Mass/Vol] 36 mg/dL Low 40 - PINF mg/dL [facility] Comment on above: HDL Guidelines: <40 Undesirable 40-59 Borderline >59 Desirable Cholesterol in LDL [Mass/Vol] 79 mg/dL 0 - 130 mg/dL [facility] Comment on above: LDL Guidelines: <100 Desirable 100-129 Near to/above Desirable 130-159 Borderline >159 Undesirable Direct (measured) LDL and calculated LDL are not interchangeable tests. Cholesterol.total/Ch olesterol in HDL [Mass ratio] 4.8 {ratio} NINF - 5 [facility] Interpretation and review of laboratory results Abnormal [facility] Triglyceride [Mass/Vol] 285 mg/dL High NINF - 150 mg/dL [facility] Comment on above: Triglyceride Guidelines: <150 Desirable 150-199 Borderline 200-499 High >499 Very high Based on AHA Guidelines for fasting triglyceride, December 2011. [facility] T3, Freeon 10-03-2022 Free T3 [Mass/Vol] 3.76 pg/mL 2.02 - 4. 43 pg/mL [facility] TSH With Reflex [id number] TSH Qn 1.66 m[IU]/L [facility] TSH w/reflex to FT4on 2022 Thyroid Stim. Horm. 1.66 uIU/mL Normal 0.30-5.00 [facility] Comment on above: Performed By: #### T SHX #### [facility] [address] [place] [address] Car Pre Cooler: Hemant Murphy MD PAP ACOG PANEL 2: 21 to 29on 12-20-2021 . . Normal [facility] Comment on above: Performed By: #### [id number] #### [facility] [address] [place] [address] Dr. Sachin Pereira Age Gdln ACOG Testing - [facility] Comment on above: Performed By: #### [id number] #### [facility] [address] [place] [address] Dr. Sachin Pereira DIAGNOSIS: Comment [facility] Comment on above: Result Comment: NEGA TIVE FOR INTRAEPITHELIAL LESION OR MALIGNANCY. Performed By: #### [id number] #### [facility] [address] [place] [address] Dr. Sachin Pereira Methodology: Comment [facility] Comment on above: Result Comment: This liquid based ThinPrep(R) pap test was screened with the use of an image guided system. Performed By: #### [id number] #### [facility] [address] [place] [address] Dr. Sachin Pereira Note: Comment [facility] Comment on above: Result Comment: The Pap smear is a screening test designed to aid in the detection of premalignant and malignant conditions of the uterine cervix. It is not a diagnostic procedure and should not be used as the sole means of detecting cervical cancer. Both false-positive and false-negative reports do occur. . Performed By: #### [id number] #### [facility] [address] [place] [address] Dr. Sachin Pereira Performed by: Comment Normal [facility] Comment on above: Result Comment: Collette Holliday, Head Correction Officer (ASCP) Performed By: #### [id number] #### [facility] [address] [address] [address] Sachin Pereira Reflex Criteria: Comment Normal [facility] Comment on above: Result Comment: The HPV DNA reflex criteria were not met with this specimen result therefore, no HPV testing was performed. . Performed By: #### [id number] #### [facility] [address] [place], [place] [address] Dr. Sachin Pereira Specimen adequacy: Comment Normal [facility] Comment on above: Result Comment: Sati sfactory for evaluation. Endocervical and/or squamous metaplastic cells (endocervical component) are present. Performed By: #### [id number] #### [facility] [address] [address] [address] Sachin Peerira Vital Signs Date Time Vital Sign Value Performing Clinician Jesus Albertoi lity 04-09-2024 11:19-0500 Body mass index (BMI) [Ratio] 45.69 kg/m2 Jesika MARIE Work Phone: [facility] 04-09-2024 11:19-0500 Body weight 140.34 kg Jesika MARIE Work Phone: [facility] 04-09-2024 11:19-0500 Diastolic blood pressure 84 mm[Hg] Jesika MARIE Work Phone: [facility] 04-09-2024 11:19-0500 Systolic blood pressure 144 mm[Hg] Jesika MARIE Work Phone: [facility] 03-19-2024 11:03-0500 Body mass index (BMI) [Ratio] 46.04 kg/m2 Gilles Regis DO Work Phone: [facility] 03-19-2024 11:03-0500 Body weight 141.43 kg Gilles Regis DO Work Phone: [facility] 03-19-2024 11:03-0500 Diastolic blood pressure 90 mm[Hg] Gilles Regis DO Work Phone: [facility] 03-19-2024 11:03-0500 Systolic blood pressure 148 mm[Hg] Gilles Regis DO Work Phone: [facility] 02-20-2024 10:16-0500 Body mass index (BMI) [Ratio] 44.45 kg/m2 Jesika MARIE Work Phone: [facility] 02-20-2024 10:16-0500 Body weight 136.53 kg Jesika Mcknight PA Work Phone: [facility] 02-20-2024 10:16-0500 Diastolic blood pressure 84 mm[Hg] Jesika Mcknight PA Work Phone: [facility] 02-20-2024 10:16-0500 Systolic blood pressure 124 mm[Hg] Jesika Mcknight PA Work Phone: [facility] 01-23-2024 11:02-0400 Body mass index (BMI) [Ratio] 44.3 kg/m2 Gilles Regis DO Work Phone: [facility] 01-23-2024 11:02-0400 Body weight 136.08 kg Gilles Regis DO Work Phone: [facility] 01-23-2024 11:02-0400 Diastolic blood pressure 82 mm[Hg] Gilles Regis DO Work Phone: [facility] 01-23-2024 11:02-0400 Systolic blood pressure 120 mm[Hg] Gilles Regis DO Work Phone: [facility] 12-26-2023 09:31-0400 Body mass index (BMI) [Ratio] 44.01 kg/m2 Gilles Regis DO Work Phone: [facility] 12-26-2023 09:31-0400 Body weight 135.17 kg Gilles Regis DO Work Phone: [facility] 12-26-2023 09:31-0400 Diastolic blood pressure 72 mm[Hg] Gilles Regis DO Work Phone: [facility] 12-26-2023 09:31-0400 Systolic blood pressure 120 mm[Hg] Gilles Regis DO Work Phone: [facility] 11-28-2023 08:56-0400 Body mass index (BMI) [Ratio] 44.08 kg/m2 Gilles Regis DO Work Phone: [facility] 11-28-2023 08:56-0400 Body weight 135.38 kg Gilles Regis DO Work Phone: [facility] 11-28-2023 08:56-0400 Diastolic blood pressure 70 mm[Hg] Gilles Regis DO Work Phone: [facility] 11-28-2023 08:56-0400 Systolic blood pressure 120 mm[Hg] Gilles Regis DO Work Phone: [facility] Encounters Encounter Date Encounter Type Care Provider Facility Start: 04-23-2024 End: 04-23-2024 Bamboo flowsheet Gilles Regis DO Work Phone: [facility] Start: 04-23-2024 End: 04-23-2024 Bamboo flowsheet Gilles Regis DO Work Phone: [facility] Start: 04-23-2024 End: 04-23-2024 ambulatory [facility] Not Available Start: 04-13-2024 End: 04-13-2024 Clinisync Result Encounter Jesika MARIE Work Phone: [facility] Unsolicited Start: 04-13-2024 End: 04-13-2024 Clinisync Result Encounter Jesika MARIE Work Phone: [facility] Unsolicited Start: 04-10-2024 End: 04-10-2024 Clinisync Result Encounter Jesika MARIE Work Phone: [facility] Unsolicited Start: 04-10-2024 End: 04-10-2024 Clinisync Result Encounter Jesika MARIE Work Phone: [facility] Unsolicited Start: 04-09-2024 End: 04-09-2024 flow sheet Jesika MARIE Work Phone: [facility] Comment on above: Third trimester preg chanel; 31 weeks gestation of ; induced hypertension, antepartum; Gestational proteinuria in third trimester; Gestational hypertension without significant proteinuria in third trimester Start: 04-09-2024 End: 04-09-2024 ambulatory JESIKA MCKNIGHT Not Available Start: 03-19-2024 End: 03-19-2024 Bamboo flowsheet Gilles Regis DO Work Phone: [facility] Start: 03-19-2024 End: 03-19-2024 Bamboo flowsheet Gilles Regis DO Work Phone: [facility] Start: 03-19-2024 End: 03-19-2024 flow sheet Gilles Regis DO Work Phone: [facility] Comment on above: 28 weeks [...] 02-20-2024 Bamboo flowsheet Jesika MARIE Work Phone: [facility] Start: 02-20-2024 End: 02-20-2024 Bamboo flowsheet Jesika MARIE Work Phone: [facility] Start: 02-20-2024 End: 02-20-2024 flow sheet Jesika Carpenter PA Work Phone: [facility] Comment on above: Second trimester pre gnancy; 24 weeks gestation of ; Diabetes mellitus screening Start: 02-20-2024 End: 02-20-2024 ambulatory JESIKA MCKNIGHT Not Available Start: 01-23-2024 End: 01-23-2024 Bamboo flowsheet Gilles Regis DO Work Phone: [facility] Start: 01-23-2024 End: 01-23-2024 Bamboo flowsheet Gilles Regis DO Work Phone: [facility] Start: 01-23-2024 End: 01-23-2024 flow sheet Gilles Regis DO Work Phone: [facility] Comment on above: 20 weeks gestation o f ; Second trimester Start: 01-23-2024 End: 01-23-2024 ambulatory [facility] Not Available Start: 12-26-2023 End: 12-26-2023 Bamboo flowsheet Gilles Regis DO Work Phone: [facility] Start: 12-26-2023 End: 01-02-2024 Clinisync Result Encounter Gilles Regis DO Work Phone: [facility] External Department Unsolicited Start: 12-26-2023 End: 01-02-2024 Clinisync Result Encounter Gilles Regis DO Work Phone: [facility] External Department Unsolicited Start: 12-26-2023 End: 12-26-2023 Patient encounter procedure Gilles Regis DO Work Phone: [facility] Start: 12-26-2023 End: 12-26-2023 Periodic preventive med est patient 18-39 yrs Gilles Regis DO Work Phone: [facility] Comment on above: Second [...] Start: 10-03-2022 End: 10-04-2022 ambulatory [place] [facility] Start: 10-03-2022 End: 10-03-2022 Subsequent hospital visit by physician Ny Michael [employer] [facility] Comment on above: Screening for hypoth [...] stick/tabl et rgnt non-auto w/o micrscp Gilles Rodriguezo DO Work Phone: Start: 11-22-2023 ALL CBC WITH AUTO DIFF Gilles Regis DO Work Phone: Start: 10-03-2022 End: 10-03-2022 Assay of triiodothyronine t3 free Ny Michael [employer] Work Phone: Start: 10-03-2022 Lipid panel Ny Michael [employer] Work Phone: Plan of Treatment Date Care Activity Detail Author Start: 04-23-2024 End: 04-23-2024 Patient encounter procedure [facility] Comment on above: Arrived Start: 04-09-2024 End: 04-09-2025 Alanine aminotransferase [Enzymatic activity/volume] in Serum or Plasma ALT Lab Routine induced hypertension, antepartum Expected: 04/09/2024 (Approximate), Expires: 04/09/2025 [facility] Comment on above: Expected: 04/09/2024 (Approximate), Expires: 04/09/2025 Start: 04-09-2024 End: 04-09-2025 Aspartate aminotransferase [Enzymatic activity/volume] in Serum or Plasma AST Lab Routine induced hypertension, antepartum Expected: 04/09/2024 (Approximate), Expires: 04/09/2025 [facility] Comment on above: Expected: 04/09/2024 (Approximate), Expires: 04/09/2025 Start: 04-09-2024 End: 04-09-2025 CBC W Auto Differential panel - Blood CBC and differential Lab Routine induced hypertension, antepartum Expected: 04/09/2024 (Approximate), Expires: 04/09/2025 [facility] Comment on above: Expected: 04/09/2024 (Approximate), Expires: 04/09/2025 Start: 04-09-2024 End: 04-09-2025 Creatinine [Mass/volume] in Serum or Plasma Creatinine Lab Routine induced hypertension, antepartum Expected: 04/09/2024 (Approximate), Expires: 04/09/2025 [facility] Work Phone: Comment on above: Expected: 04/09/2024 (Approximate), Expires: 04/09/2025 Start: 04-09-2024 End: 04-09-2025 Lactate dehydrogenase [Enzymatic activity/volume] in Serum or Plasma by Lactate to pyruvate reaction Lactate dehydrogenase Lab Routine induced hypertension, antepartum Expected: 04/09/2024, Expires: 04/09/2025 [facility] Comment on above: Expected: 04/09/2024 , Expires: 04/09/2025 Start: 04-09-2024 End: 04-09-2025 Protein, urine, 24 hour [facility] Comment on above: Expected: 04/09/2024 (Approximate), Expires: 04/09/2025 Ordered: 04/09/2024 Start: 04-09-2024 End: 04-09-2025 Pt and ptt Pt and ptt Lab Routine induced hypertension, antepartum Expected: 04/09/2024, Expires: 04/09/2025 [facility] Comment on above: Expected: 04/09/2024 , Expires: 04/09/2025 Start: 04-09-2024 End: 04-09-2025 Urate [Mass/volume] in Serum or Plasma Uric acid Lab Routine induced hypertension, antepartum Expected: 04/09/2024 (Approximate), Expires: 04/09/2025 [facility] Comment on above: Expected: 04/09/2024 (Approximate), Expires: 04/09/2025 Start: 04-09-2024 End: 04-09-2025 Urea nitrogen [Mass/volume] in Serum or Plasma BUN Lab Routine induced hypertension, antepartum Expected: 04/09/2024, Expires: 04/09/2025 [facility] Comment on above: Expected: 04/09/2024 , Expires: 04/09/2025 Start: 04-09-2024 End: 04-09-2024 Patient encounter procedure 04/09/2024 11:20 AM EST Routine [facility] [address] [place] [id number] Jesika Mcknight PA [address] [place] [address] [facility] Start: 04-09-2024 End: 04-09-2024 Professional / ancillary services management 04/09/2024 10:30 AM EST Ancillary Procedure [facility] [address] [id number] [facility] Start: 03-19-2024 End: 03-19-2025 US biophysical profile w non stress test US biophysical profile w non stress test Imaging Routine Gestational diabetes mellitus (GDM), antepartum, gestational diabetes method of control unspecified Expected: 03/19/2024 (Approximate), Expires: 03/19/2025 [facility] Work Phone: Comment on above: Expected: 03/19/2024 (Approximate), Expires: 03/19/2025 Start: 03-19-2024 End: 03-19-2025 US for US OB SCAN FOR GROWTH Imaging Routine Gestational diabetes mellitus (GDM), antepartum, gestational diabetes method of control unspecified Expected: 03/19/2024 (Approximate), Expires: 03/19/2025 [facility] Comment on above: Expected: 03/19/2024 (Approximate), Expires: 03/19/2025 Start: 03-19-2024 End: 03-19-2024 Patient encounter procedure [facility] Comment on above: Arrived Start: 02-20-2024 End: 02-19-2025 CBC panel - Blood by Automated count CBC Lab Routine Diabetes mellitus screening Expected: 02/20/2024 (Approximate), Expires: 02/19/2025 [facility] Work Phone: Comment on above: Expected: 02/20/2024 (Approximate), Expires: 02/19/2025 Start: 02-20-2024 End: 02-19-2025 Measurement of glucose 1 hour after glucose challenge for glucose tolerance test Glucose tolerance, 1 hour Lab Routine Diabetes mellitus screening Expected: 02/20/2024 (Approximate), Expires: 02/19/2025 [facility] Comment on above: Expected: 02/20/2024 (Approximate), Expires: 02/19/2025 Start: 02-20-2024 End: 02-20-2024 Patient encounter procedure [facility] Comment on above: Arrived Start: 01-23-2024 End: 01-23-2024 Patient encounter procedure [facility] Comment on above: Arrived Start: 01-23-2024 End: 01-23-2024 Professional / ancillary services management 01/23/2024 10:00 AM EDT Ancillary Procedure [facility] [address] [place] [address] [facility] Start: 12-26-2023 End: 01-25-2024 Alpha fetoprotein, maternal Alpha fetoprotein, maternal Lab Routine Need for maternal serum alpha-protein (MSAFP) screening Expected: 12/26/2023 (Approximate), Expires: 01/25/2024 [facility] Comment on above: Expected: 12/26/2023 (Approximate), Expires: 01/25/2024 Start: 12-26-2023 End: 12-25-2024 US for US OB ANATOMY SINGLE W US OB CERVICAL LENGTH Imaging Routine Screening, , for anatomic survey Expected: 12/26/2023 (Approximate), Expires: 12/25/2024 [facility] Comment on above: Expected: 12/26/2023 (Approximate), Expires: 12/25/2024 Start: 12-26-2023 End: 12-26-2023 Patient encounter procedure [facility] Comment on above: Arrived Start: 12-01-2023 Influenza vaccination Influenza Vacc ine (#1) [facility] Start: 11-28-2023 End: 11-27-2024 Measurement of glucose 1 hour after glucose challenge for glucose tolerance test Glucose tolerance, 1 hour Lab Routine Diabetes mellitus screening Expected: 11/28/2023 (Approximate), Expires: 11/27/2024 [facility] Work Phone: Comment on above: Expected: 11/28/2023 (Approximate), Expires: 11/27/2024 Start: 11-28-2023 End: 11-28-2023 Patient encounter procedure [facility] Comment on above: Arrived Start: 10-09-2023 End: 10-09-2023 Patient encounter procedure 10/09/2023 Office Visit Primary Care Stephania, Ny Causey, [employer] [address] [place] [address] [facility] Start: 10-02-2023 Depression Screen Depression Screen [facility] Start: 10-02-2023 DTaP/Tdap/Td vaccine (1 - Tdap) DTaP/Tdap/Td vaccine (1 - Tdap) [facility] Comment on above: Postponed from 07/16 (Patient Refused) Start: 10-02-2023 Hepatitis C screening Hepatitis C sc reen [facility] Comment on above: Postponed from 07/16 (Patient Refused) Start: 10-02-2023 HIV screening HIV screen [facility] Comment on above: Postponed from 07/16 (Patient Refused) Start: 10-02-2023 HPV vaccine (1 - 2-d ose series) HPV vaccine (1 - 2-dose series) [facility] Comment on above: Postponed from 07/16 (Patient Refused) Start: 10-30-2022 Influenza vaccination Flu vaccine (# 1) [facility] Start: 05-01-2021 COVID-19 Vaccine (2 - Booster for Kinga series) COVID-19 Vaccine (2 - Booster for Kinga series) [facility] Start: 2017 Screening for malign ant neoplasm of cervix Pap smear [facility] CHLAMYDIA TRACHOMATI S (GENITO/STI) CHLAMYDIA TRACHOMATIS (GENITO/STI) Lab Routine Exposure to STD Ordered: 12/26/2023 [facility] Comment on above: Ordered: 12/26/2023 Cytology Cervical or vaginal smear or scraping study Pap Smear Pathology and Cytology Routine Well woman exam with routine gynecological exam Ordered: 12/26/2023 [facility] Comment on above: Ordered: 12/26/2023 Neisseria gonorrhoea e DNA [Presence] in Unspecified specimen by SHANNA with probe detection Neisseria gonorrhea DNA probe, direct Lab Routine Exposure to STD Ordered: 12/26/2023 [facility] Comment on above: Ordered: 12/26/2023 SURESWAB(R) ADVANCED VAGINITIS PLUS, TMA SURESWAB(R) ADVANCED VAGINITIS PLUS, TMA Pathology and Cytology Routine Exposure to STD Ordered: 12/26/2023 [facility] Work Phone: Comment on above: Ordered: 12/26/2023 Immunizations Immunization Date Immunization Notes Care Provider Fa andrés 03-06-2021 COVID-19, J&J, (age 18y+), IM, 0.5 mL Ny Michael [employer] Work Phone: [facility] Payers Date Payer Category Payer Private Health Insurance [id number] 2022 Private Health Insurance [id number] 1996 Unknown [id number] 2.16.84 [id number] 1996 Unknown [id number] 2.16.84 [id number] 1996 Unknown [id number] 2.16.8 [id number] 1996 Unknown [id number] 2.16.84 [id number] 1996 Unknown [id number] 2.16.84 [id number] 1996 Unknown [id number] 2.16.84 [id number] 1996 Unknown [id number] 2.16.84 [id number] 1996 Unknown [id number] 2.16.84 [id number] 1996 Unknown [id number] 2.16.84 [id number] 1996 Unknown [id number] 2.16.84 [id number] 1996 Unknown [id number] 2.16.84 [id number] 1996 Unknown [id number] 2.16.84 [id number] 1959 Self-pay [id number] 1959 Unknown [id number] Social History Date Type Detail Facility Start: 10-01-2022 Tobacco smoking status NMIS Ex-smoker [facility] End: 05-30-2021 History of tobacco use Current smoker [facility] End: 05-30-2021 History of tobacco use Cigarette Smoker [facility] History of tobacco use Tobacco U se Types Packs/Day Years Used Date Smoking Tobacco: Former Cigarettes 0.5 5 Quit: 05/2021 E-Cigarettes Smokeless Tobacco: Never [facility] Start: 10-01-2022 Cigarettes smoked current (pack per day) - Reported 0.5 [facility] Start: 10-01-2022 Tobacco use and exposure Smokeless tobacco non-user [facility] Start: 10-01-2022 Alcohol intake Ex-drinker (finding) [facility] Start: 10-01-2022 History SDOH Physical Activity DPW 3 [facility] Start: 10-01-2022 History SDOH Physical Activity MPS 6 [facility] Start: 10-01-2022 History SDOH Financial 5 [facility] Start: 10-01-2022 History SDOH Food Worry 1 [facility] Start: 10-01-2022 History SDOH Transport Non-Med 2 [facility] Start: 10-01-2022 Alcohol Comment Socially [facility] Start: 1996 Sex Assigned At Female [facility] Tobacco smoking stat [facility] Tobacco smoking consumption unknown [facility] Start: 09-17-2023 [facility] Start: 12-11-2022 Gender identity Identifies as female gender (finding) [facility] Start: 12-11-2022 Sexual orientation Heterosexual (finding) [facility] Medical Equipment Procedure Code Equipment Code Equipment Origin al Text Equipment Identifier Dates 1 strip by In Vi tro route Daily Use in the morning prior to breakfast, 1 hour after each meal for a total of 4times daily. [id number] Start: 03-16-2024 End: 04-15-2024 1 each by In Vit ro route Daily Use to check FSBS four times daily [id number] Start: 03-16-2024 End: 04-15-2024 Goals Date Patient [...] mg, Oral, Daily Blood Glucose Monitoring Suppl ([email or web address] Glucometer) w/Device kit 1 kit, Does not [...] of: CYNTHIA Parker documented in this encounter [facility] 03-19-2024 History of Presen t illness Narrative Reason for Appointment: Patient ID: [id number] Vallecillo is a 28 y.o. female who presents for No chief complaint on file. Patient presents today for Return OB appointment. MEDICATIONS Current Outpatient Medications Medication Instructions Alcohol Swabs (Alcohol Prep Pad) 70 % pads 1 Pad, Topical, Daily, Use four times daily to check FSBS. aspirin 81 mg, Oral, Daily Blood Glucose Monitoring Suppl ([email or web address] Glucometer) w/Device kit 1 kit, Does not [...] Gilles Stacy DO documented in this encounter [facility] 02-20-2024 History of Presen t illness [...] nursing note reviewed. Exam conducted with a life support technician present. Vitals: Estimated body mass index is [...] hour glucose order to have done at [facility]. Orders Placed This Encounter Procedures CBC Glucose tolerance, 1 hour POCT urinalysis dipstick manually resulted Follow Up: Patient is to return to office in 2 week for routine OB appointment. Documented by Giovana Aazr MA on behalf of: CYNTHIA Parker documented in this encounter [facility] 01-23-2024 History of Presen t illness [...] nursing note reviewed. Exam conducted with a life support technician present. Vitals: Estimated body mass index is [...] Gilles Stacy DO documented in this encounter [facility] 12-26-2023 History of Presen t illness [...] nursing note reviewed. Exam conducted with a life support technician present. Vitals: Estimated body mass index is [...] by Suzanne Angela LPN on behalf of: DO Onesimo Gauthierally signed by Suzanne Angela LPN at 12/29/2023 11:32 AM EDT documented in this encounter [facility] 11-28-2023 History of Presen t illness [...] nursing note reviewed. Exam conducted with a life support technician present. Vitals: Estimated body mass index is [...] or undercooked meat, and stay away from [facility]. Patient has been consulted regarding any further [...] Gilles Stacy DO documented in this encounter [facility] Healthcare Evaluation note Diagnosis Screening for hypothyroidism Screening for thyroid disorder Diabetes mellitus screening Screening for diabetes mellitus Lipid screening Screening for lipoid disorders documented in this encounter [facility] HE[facility]THE[facility]* Diagnosis 20 weeks gestation of Second trimester state, incidental documented in this encounter [facility] HealthcareEvaluation note* Diagnosis Second trimester state, [...] in third trimester documented in this encounter [facility] Summary [...] pital DATE CREATED AUTHOR AUTHOR'S ORGANIZ ATION 04/25/2024 [facility] Care Teams (unrecognized sec tion and content) [employer] Relationship Specialty Start Date End Date Ny Michael, [employer] - [employer] [address] [place] [address] PCP - General Certified Nurse Practitioner 10/01/22 [...] BE BASED ON THE PRIMARY CLINICAL RECORDS. [employer] provides no warranty or guarantee of the accuracy or completeness of information in this document.
[2024-04-27 07:24] VITALS: BP 137/73; PULSE 85
== END 2024-04-27 08:00 | disposition home or self-care (01) ==
LOC: FBCO 01:14 → FBC 06:56
PROVIDERS: Visit Provider Obstetrics & Gynecology
DX: O24.419 Gestational diabetes mellitus in pregnancy, unspecified control (principal); Z3A.33 33 weeks gestation of pregnancy
CPT/HCPCS: 59025

== ENCOUNTER 2024-04-30 05:35 | Outpatient (OUT) | payer OTHER, SELFPAY ==
--- OUTSIDE RECORDS SUMMARY | 2024-04-30 05:38 | XMS_ITS | CCD ---
Author Organization [facility] Care Team Providers Care Pupil Personnel Services Director Name Role Phone FIDENCIO ANDRES Primary Care Unavailable FIDENCIO ANDRES Attending Unavailable FIDENCIO ANDRES Admitting Unavailable REGIS, DR CAMPOVERDE Admitting Unavailable REGIS, DR CAMPOVERDE Consulting Unavailable REGIS, DR CAMPOVERDE Attending Unavailable FIDENCIO ANDRES Primary Care Unavailable Stephania Ny FELICIANO CNP Primary Care [facility] er [place] MICHAEL Referring Unavailable [place] MICHAEL Primary Care Unavailable Unavailable Primary Care Provider UnavailGILLES Jenkins Attending Unavailable GILLES STACY Attending Unavailable GILLES STACY Attending Unavailable REGISGILLES EVANGELISTA Attending Unavailable JESIKA MCKNIGHT Attending Unavailable GILLES STACY Attending Unavailable JESIKA MCKNIGHT Attending Unavailable Medications Current Medications Medication Drug Class(es) Dates Sig (Normalized) Sig (Original) aspirin 81 mg delayed release oral tablet (9 sources) Platelet Aggregation Inhibitor, Nonsteroidal Anti-inflammatory Drug take 1 tablet by mouth once daily aspirin 81 MG EC tablet Take 81 mg by mouth Daily Active Blood Glucose Monitoring Suppl (D-Care Glucometer) w/Device kit (10 sources) Start: 03-16-2024 End: 03-16-2025 Blood Glucose Monitoring Suppl (D-Care Glucometer) w/Device kit Indications: Gestational diabetes mellitus (GDM), antepartum, gestational diabetes method of control unspecified , Elevated glucose tolerance test 1 kit Daily Use four times daily to check FSBS. In the morning prior to breakfast & 1 hour after each meal for a total of 4times daily. 1 kit 03/16/2024 03/16/2025 Active 3 ml insulin glargine 100 unt/ml pen injector (2 sources) Insulin Analog Start: 04-23-2024 End: 05-23-2024 inject 10 [IU] by subcutaneous injection at bedtime insulin glargine (Lantus SoloStar) 100 UNIT/ML pen Indications: Hyperglycemia Inject 10 Units under the skin at bedtime FILL ACCORDING TO INSURANCE COVERAGE 3 mL 2 04/23/2024 05/23/2024 Active isopropyl alcohol 0.7 ml/ml medicated pad (10 sources) Start: 03-16-2024 Alcohol Swabs (Alcohol Prep Pad) 70 % pads Indications: Gestational diabetes mellitus (GDM), antepartum, gestational diabetes method of control unspecified , Elevated glucose tolerance test Apply 1 Pad topically Daily Use four times daily to check FSBS. 150 each 3 03/16/2024 Active labetalol hydrochloride 100 mg oral tablet (11 sources) beta-Adrenergic Darlene Start: 04-23-2024 End: 05-23-2024 take 2 tablets by mouth in the morning, then take 2 tablets by mouth in the evening, then take 2 tablets by mouth at bedtime labetalol (Normodyne) 100 MG tablet Indications: Gestational hypertension without significant proteinuria in third trimester Take 2 tablets (200 mg) by mouth in the morning and 2 tablets (200 mg) in the evening and 2 tablets (200 mg) before bedtime. 120 tablet 2 04/23/2024 05/23/2024 Active Start: 04-09-2024 End: 07-08-2024 take 1 tablet by mouth in the morning labetalol (Normodyne) 100 MG tablet Indications: Gestational hypertension without significant proteinuria in third trimester Take 1 tablet (100 mg) by mouth in the morning and 1 tablet (100 mg) before bedtime. 60 tablet 2 04/09/2024 04/23/2024 Discontinued MV-Min-Fe Fum-FA-DH A ( 1 PO) (20 sources) MV-Min- Fe Fum-FA-DHA ( 1 PO) Take by mouth Active Problems Active Problems Problem Classification Problem Date Documented Date Episodic/Chronic Diabetes or abnormal glucose tolerance complicating ; childbirth; or the puerperium (6 sources) Gestational diabetes mellitus; Translations: [Gestational diabetes mellitus in , unspecified control] 03-19-2024 Episodic Hypertension complicating ; childbirth and the puerperium (6 sources) -induced hypertension; Translations: [Gestational [-induced] hypertension without significant proteinuria, unspecified trimester] 04-09-2024 Episodic Immunizations and screening for infectious disease (3 sources) Encounter for screening for human papillomavirus (HPV); Translations: [Exposure to sexually transmissible disorder] Onset: 12-17-2021 12-26-2023 Episodic Other complications of (2 sources) Gestational proteinuria; Translations: [Gestational proteinuria, third trimester] 04-09-2024 Episodic Other and delivery including normal (12 sources) Second trimester ; Translations: [Encounter for [...] [31 weeks gestation of ] 04-09-2024 Episodic Residual codes; unclassified (2 sources) Gestation period, 33 weeks; Translations: [33 weeks gestation of ] 04-23-2024 Episodic Unclassified (20 sources) OB Reminders Onset: 12-26-2023 12-26-2023 Past or Other Problems Problem Classification Problem Date Documented Da te Episodic/Chronic Residual codes; unclassified (2 sources) Gestation period, 12 weeks; Translations: [12 weeks gestation of ] 11-28-2023 Episodic Results Test Name Value Interpretation Reference Range Facility Urinalysis macro (dipstick) panel (U)on 04-23-2024 Bilirubin, UA Trace Negative - 4(70) +++ mg/dL [facility] Blood, UA Negative Negative - 50 Horacio/mcL [facility] Clarity, UA Clear [facility] re Color, UA Kenyatta [facility] Glucose, UA Negative Negative - 2000(110) ++++ mg/dL [facility] Interpretation and review of laboratory results Abnormal [facility] Ketones, UA Negative Negative - 160(16) ++++ mg/dL [facility] Leukocytes, UA Trace Negative - 500+++ Nica/mcL [facility] Nitrite, UA Negative Negative - Positive [facility] pH, UA 6 5 - 9 [facility] Protein, UA Moderate Negative - 2000(20) ++++ mg/dL [facility] Spec Grav, UA 1.03 1 - 1.03 [facility] Urobilinogen, UA 0.2 0.2 - 12 mg/dL [facility] TBH TOTAL PROTEIN 24 HOUR UR INEon 04-13-2024 Interpretation and review of laboratory results Abnormal [facility] Protein (U) [Mass/Vol] 21.4 mg/dL High NINF - 11.9 mg/dL [facility] TBH TOTAL PROTEIN 24 HOUR URINE 310.3 High [facility] TOTAL VOLUME 24 HOUR URINE 1450 mL/24hr [facility] e ALL CBC WITH AUTO DIFFon BASOPHILS ABSOLUTE AUTO 0.1 [facility] Basophils/100 WBC (Bld) 0.5 % 0.2 - 2.0 % [facility] Eosinophils/100 WBC (Bld) 1.4 % 0.9 - 7.0 % [facility] Erythrocyte distribution width (RBC) [Ratio] 15.1 % High 11.0 - 15.0 % [facility] Hematocrit (Bld) [Volume fraction] 36.2 % 36.0 - 48.0 % [facility] (Bld) [Mass/Vol] 11.5 g/dL Low 12.0 - 16.0 g/dL [facility] IMMATURE GRANULOCYTES ABS AUTO 0.05 High [facility] Immature granulocytes/100 WBC (Bld) 0.3 % 0.0 - 0.5 % [facility] Interpretation and review of laboratory results Abnormal [facility] LYMPHOCYTES ABSOLUTE AUTO 2.9 [facility] Lymphocytes/100 WBC (Bld) 19.5 % Low 20.5 - 60.0 % [facility] MCH (RBC) [Entitic mass] 25 pg Low 26.7 - 34.0 pg [facility] MCHC (RBC) [Mass/Vol] 31.8 g/dL 29.9 - 35.2 g/dL [facility] MCV (RBC) [Entitic vol] 78.7 fL Low 81.0 - 99.0 fL [facility] MONOCYTES ABSOLUTE AUTO 1.2 High [facility] Monocytes/100 WBC (Bld) 7.6 % 1.7 - 12.0 % [facility] NEUTROPHILS ABSOLUTE AUTO 10.6 High [facility] Neutrophils/100 WBC (Bld) 70.7 % 43.0 [...] 2177 cm / 4 lbs, 12 oz (0878-4409 gm) [place] Normal: 1812 gm (3909-9535 gm) [place] Wt%: >97% for 31.3 wks [...] UA Negative Negative - 4(70) +++ mg/dL [facility] Blood, UA Negative Negative - 50 Horacio/mcL [facility] Clarity, UA Clear [facility] re Color, UA Yellow [facility] Glucose, UA Negative Negative - 1999(110) ++++ mg/dL [facility] Interpretation and review of laboratory results Abnormal [facility] Ketones, UA Negative Negative - 160(16) ++++ mg/dL [facility] Leukocytes, UA Negative Negative - 500+++ Nica/mcL [facility] Nitrite, UA Negative Negative - Positive [facility] pH, UA 6.5 5 - 9 [facility] Protein, UA Positive Negative - 1999(20) ++++ mg/dL [facility] Spec Grav, UA 1.03 1 - 1.03 [facility] Urobilinogen, UA 1.0 0.2 - 12 mg/dL [facility] Urinalysis macro (dipstick) panel (U)on 03-19-2024 Bilirubin, UA Negative Negative - 4(70) +++ mg/dL [facility] Blood, UA Negative Negative - 50 Horacio/mcL [facility] Clarity, UA Clear [facility] Color, UA Straw [facility] Glucose, UA Negative Negative - 1999(110) ++++ mg/dL [facility] Interpretation and review of laboratory results Abnormal [facility] Ketones, UA Negative Negative - 160(16) ++++ mg/dL [facility] Leukocytes, UA Trace Negative - 500+++ Nica/mcL [facility] Nitrite, UA Negative Negative - Positive [facility] pH, UA 6 5 - 9 [facility] Protein, UA Negative Negative - 1999(20) ++++ mg/dL [facility] Spec Grav, UA 1.03 1 - 1.03 [facility] Urobilinogen, UA 0.2 0.2 - 12 mg/dL [facility] GLUCOSE TOLERANCE 3 HOURon 1 05-13-2023 GLUCOSE TOLERANCE 3 HOUR High mg/dL [facility] Comment on above: GLU FAST 108H (<95) Col: 03/12/24 0757 GLU 1HR 190H (<180) Col: 03/12/24 0900 GLU 2HR 172H (<155) Col: 03/12/24 1000 GLU 3HR 121 (<140) Col: 03/12/24 1100 Interpretation and review of laboratory results Abnormal [facility] ALL CBC WITH AUTO DIFFon BASOPHILS ABSOLUTE AUTO 0.1 [facility] Basophils/100 WBC (Bld) 0.5 % 0.2 - 2.0 % [facility] Eosinophils/100 WBC (Bld) 2.4 % 0.9 - 7.0 % [facility] Erythrocyte distribution width (RBC) [Ratio] 14.7 % 11.0 - 15.0 % [facility] Hematocrit (Bld) [Volume fraction] 36.9 % 36.0 - 48.0 % [facility] e Hemoglobin (Bld) [Mass/Vol] 11.7 g/dL Low 12.0 - 16.0 g/dL [facility] IMMATURE GRANULOCYTES ABS AUTO 0.07 High [facility] Immature granulocytes/100 WBC (Bld) 0.5 % 0.0 - 0.5 % [facility] Interpretation and review of laboratory results Abnormal [facility] LYMPHOCYTES ABSOLUTE AUTO 3.3 [facility] Lymphocytes/100 WBC (Bld) 22.6 % 20.5 - 60.0 % [facility] MCH (RBC) [Entitic mass] 25.6 pg Low 26.7 - 34.0 pg [facility] MCHC (RBC) [Mass/Vol] 31.7 g/dL 29.9 - 35.2 g/dL [facility] MCV (RBC) [Entitic vol] 80.7 fL Low 81.0 - 99.0 fL [facility] MONOCYTES ABSOLUTE AUTO 1 High [facility] Monocytes/100 WBC (Bld) 6.7 % 1.7 - 12.0 % [facility] NEUTROPHILS ABSOLUTE AUTO 9.7 High [facility] Neutrophils/100 WBC (Bld) 67.3 % 43.0 - 75.0 % [facility] Platelet mean volume (Bld) [Entitic vol] 10.4 fL 9.5 - 13.5 fL [facility] EO # 0.3 [facility] TBH PLT 339 [facility] e TBH RBC 4.57 [facility] e TBH WBC 14.4 High [facility] Urinalysis macro (dipstick) panel (U)on 02-20-2024 Bilirubin, UA Negative Negative - 4(70) +++ mg/dL [facility] Blood, UA Negative Negative - 50 Horacio/mcL [facility] Healthcare Clarity, UA Clear [facility] re Color, UA Yellow [facility] Glucose, UA Negative Negative - 1999(110) ++++ mg/dL [facility] Interpretation and review of laboratory results Abnormal [facility] Ketones, UA Negative Negative - 160(16) ++++ mg/dL [facility] Leukocytes, UA Trace Negative - 500+++ Nica/mcL [facility] Healthcare Nitrite, UA Negative Negative - Positive [facility] pH, UA 7 5 - 9 [facility] Protein, UA Negative Negative - 1999(20) ++++ mg/dL [facility] Healthcare Spec Grav, UA 1.025 1 - 1.03 [facility] Urobilinogen, UA 0.2 0.2 - 12 mg/dL [facility] Urinalysis macro (dipstick) panel (U)on 01-23-2024 Bilirubin, UA Negative Negative - 4(70) +++ mg/dL [facility] Blood, UA Negative Negative - 50 Horacio/mcL [facility] Healthcare Clarity, UA Clear [facility] re Color, UA Yellow [facility] Glucose, UA Negative Negative - 1999(110) ++++ mg/dL [facility] Interpretation and review of laboratory results Abnormal [facility] Ketones, UA Negative Negative - 160(16) ++++ mg/dL [facility] Leukocytes, UA Trace Negative - 500+++ Nica/mcL [facility] Healthcare Nitrite, UA Negative Negative - Positive [facility] pH, UA 6.5 5 - 9 [facility] Protein, UA Negative Negative - 1999(20) ++++ mg/dL [facility] Spec Grav, UA 1.015 1 - 1.03 [facility] Urobilinogen, UA 0.2 0.2 - 12 mg/dL [facility] IGP,APTIMA HPV,AGE GDLNon AGE GDLN ACOG TESTING Note . [facility] Comment on above: TESTS RESULT FLAG UN ITS REF RANGE LAB Clinician Provided Cytology Information Source.............Cervix Other.............. No. of containers..01 ThinPrep Vial Age Raul RODARTE Micaela... FLAG LEGEND: L-Low Normal,H-High Normal,LL-Alert Low,HH-Alert High <-Panic Low,>-Panic High,A-Abnormal,AA-Critical Abnormal Performed at: 01 =G [facility] [phone] Vania Cabezas MD, IGP, RFX APTIMA HPV ASCU Note . [facility] Comment on above: TESTS RESULT FLAG UN ITS REF RANGE LAB DIAGNOSIS: 02 NEGATIVE FOR INTRAEPITHELIAL LESION OR MALIGNANCY. Specimen adequacy: 02 Satisfactory for evaluation. Endocervical and/or squamous metaplastic cells (endocervical component) are present. Performed by: 02 Marissa Franklin, Treatment Supervisor ([facility]) . 02 Note: Note [...] <-Panic Low,>-Panic High,A-Abnormal,AA-Critical Abnormal Performed at: [address] [id number] Vania Cabezas MD, Performed at: =G - [facility] [address] [id number] [employer] Teaching Grades 9 Thru 12 Teacher: Vania Cabezas MD, Phone: [phone] Performed at: [facility] [address] [id number] [employer] Grades 9 Thru 12 Teacher: Vania Cabezas MD, Phone: [phone] SPATULA-ALONE CERVIX [facility] [employer] e Urinalysis macro (dipstick) panel (U)on 12-26-2023 Bilirubin, UA Negative Negative - 4(70) +++ mg/dL [facility] Blood, UA Negative Negative - 50 Horacio/mcL [facility] Clarity, UA Clear [facility] [employer] re Color, UA Yellow [facility] [employer] e Glucose, UA Negative Negative - 1999(110) ++++ mg/dL [facility] Interpretation and review of laboratory results Normal [facility] Ketones, UA Positive Negative - 160(16) ++++ mg/dL [facility] Comment on above: trace Leukocytes, UA Positive Negative - 500+++ Nica/mcL [facility] [employer] Comment on above: small Nitrite, UA Negative Negative - Positive [facility] [employer] pH, UA 6.0 5 - 9 [facility] [employer] e Protein, UA Negative Negative - 1999(20) ++++ mg/dL [facility] Spec Grav, UA 1.015 1 - 1.03 [facility] Urobilinogen, UA 0.2 0.2 - 12 mg/dL [facility] GLUCOSE 1 HOURon 12-11-2023 Glucose [Mass/Vol] 131 mg/dL High NINF - 13 0 mg/dL [facility] Interpretation and review of laboratory results Abnormal [facility] No Panel Informationon 11-28 STAPHYLOCOCCUS EPIDERMIDIS, HAEMOLYTICUS, LUGDUNENSIS, SAPROPHYTICUS (URINA 0.000 [facility] STAPHYLOCOCCUS EPIDERMIDIS, HAEMOLYTICUS, LUGDUNENSIS, SAPROPHYTICUS (URINA Not detected [facility] URINARY TRACT INFECTION (HTR X)on 11-29-2023 ACINETOBACTER BAUMANII 0.000 [facility] ACINETOBACTER BAUMANII Not detected [facility] CHRISTIAN ALBICANS, PARAPSILOSIS, TROPICALIS 0.000 [facility] CHRISTIAN ALBICANS, PARAPSILOSIS, TROPICALIS Not detected [facility] CHRISTIAN GLABRATA 0.000 [facility] CHRISTIAN GLABRATA Not detected [facility] CHRISTIAN KRUSEI 0.000 [facility] hcare CHRISTIAN KRUSEI Not detected [facility] CITROBACTER FREUNDII 0.000 [facility] CITROBACTER FREUNDII Not detected NO [facility] ENTEROBACTER AEROGENES, CLOACAE 0.000 [facility] re ENTEROBACTER AEROGENES, CLOACAE Not detected [facility] re ENTEROCOCCUS FAECALIS, FAECIUM 0.000 [facility] e ENTEROCOCCUS FAECALIS, FAECIUM Not detected [facility] e ESCHERICHIA COLI 0.000 [facility] ESCHERICHIA COLI Not detected [facility] ealtare KLEBSIELLA PNEUMONIAE, OXYTOCA 0.000 [facility] are KLEBSIELLA PNEUMONIAE, OXYTOCA Not detected [facility] are MORGANELLA MORGANII 0.000 [facility] MORGANELLA MORGANII Not detected [facility] PROTEUS MIRABILIS, VULGARIS 0.000 [facility] PROTEUS MIRABILIS, VULGARIS Not detected [facility] PSEUDOMONAS AERUGINOSA 0.000 [facility] PSEUDOMONAS AERUGINOSA Not detected [facility] SERRATIA MARCESCENS 0.000 [facility] SERRATIA MARCESCENS Not detected [facility] STAPHYLOCOCCUS AUREUS 0.000 [facility] STAPHYLOCOCCUS AUREUS Not detected [facility] STREPTOCOCCUS AGALACTIAE (GROUP B STREP) 0.000 [facility] STREPTOCOCCUS AGALACTIAE (GROUP B STREP) Not detected [facility] STREPTOCOCCUS PYOGENES (GROUP A STREP) 0.000 [facility] STREPTOCOCCUS PYOGENES (GROUP A STREP) Not detected [facility] Urinalysis macro (dipstick) panel (U)on 11-28-2023 Bilirubin, UA Positive Negative - 4(70) +++ mg/dL [facility] Comment on above: small Blood, UA Negative Negative - 50 Horacio/mcL [facility] Clarity, UA Clear [facility] re Color, UA Yellow [facility] Glucose, UA Negative Negative - 1999(110) ++++ mg/dL [facility] Interpretation and review of laboratory results Abnormal [facility] Ketones, UA Negative Negative - 160(16) ++++ mg/dL [facility] Leukocytes, UA Trace Negative - 500+++ Nica/mcL [facility] Nitrite, UA Negative Negative - Positive [facility] pH, UA 7.0 5 - 9 [facility] Protein, UA Trace Negative - 1999(20) ++++ mg/dL [facility] Spec Grav, UA 1.025 1 - 1.03 [facility] Urobilinogen, UA 0.2 0.2 - 12 mg/dL [facility] ALL CBC WITH AUTO DIFFon BASOPHILS ABSOLUTE AUTO 0.1 [facility] Basophils/100 WBC (Bld) 0.4 % 0.2 - 2.0 % [facility] Eosinophils/100 WBC (Bld) 1.5 % 0.9 - 7.0 % [facility] Erythrocyte distribution width (RBC) [Ratio] 14.8 % 11.0 - 15.0 % [facility] Hematocrit (Bld) [Volume fraction] 39.4 % 36.0 - 48.0 % [facility] Hemoglobin (Bld) [Mass/Vol] 12.8 g/dL 12.0 - 16.0 g/dL [facility] IMMATURE GRANULOCYTES ABS AUTO 0.04 High [facility] Immature granulocytes/100 WBC (Bld) 0.3 % 0.0 - 0.5 % [facility] Interpretation and review of laboratory results Abnormal [facility] LYMPHOCYTES ABSOLUTE AUTO 3.4 [facility] Lymphocytes/100 WBC (Bld) 26.5 % 20.5 - 60.0 % [facility] MCH (RBC) [Entitic mass] 25.7 pg Low 26.7 - 34.0 pg [facility] MCHC (RBC) [Mass/Vol] 32.5 g/dL 29.9 - 35.2 g/dL [facility] MCV (RBC) [Entitic vol] 79.0 fL Low 81.0 - 99.0 fL [facility] MONOCYTES ABSOLUTE AUTO 1.0 High [facility] Monocytes/100 WBC (Bld) 7.4 % 1.7 - 12.0 % [facility] NEUTROPHILS ABSOLUTE AUTO 8.3 High [facility] Neutrophils/100 WBC (Bld) 63.9 % 43.0 - 75.0 % [facility] Platelet mean volume (Bld) [Entitic vol] 10.6 fL 9.5 - 13.5 fL [facility] EO # 0.2 [facility] TB[facility] PLT 345 [facility] RBC 4.99 [facility] WBC 12.9 High [facility] Lipid Profileon 10-04-2022 Cholesterol [Mass/Vol] 172 mg/dL Normal <200 [facility] Comment on above: Result Comment: Cholesterol Guidelines: <200 Desirable 200-240 Borderline >240 Undesirable Performed By: #### L IPR #### [facility] [address] [place] [id number] [employer] Gr[employer] 9 Thru 12 Teacher: Erik Redding MD Cholesterol in HDL [Mass/Vol] 36 mg/dL Low >40 [facility] Comment on above: Result Comment: HDL Guidelines: <40 Undesirable 40-59 Borderline >59 Desirable Performed By: #### L IPR #### [facility] [place], [place] [id number] Home [employer] Grades 9 Thru 12 Teacher: Erik Redding MD Cholesterol in LDL [Mass/Vol] 79 mg/dL Normal 0-130 [facility] Comment on above: Result Comment: LDL Guidelines: <100 Desirable 100-129 Near to/above Desirable 130-159 Borderline >159 Undesirable Direct (measured) LDL and calculated LDL are not interchangeable tests. Performed By: #### L IPR #### [facility] [address] [place] [id number] [employer] Grades 9 Thru 12 Teacher: Erik Redding MD Cholesterol.total/Ch olesterol in HDL [Mass ratio] 4.8 {ratio} Normal <5 [facility] Comment on above: Performed By: #### L IPR #### [address] [id number] Home Teaching Grades 9 Thru 12 Teacher: Erik Redding MD Triglyceride [Mass/Vol] 285 mg/dL High <150 [facility] Comment on above: Result Comment: Triglyceride Guidelines: <150 Desirable 150-199 Borderline 200-499 High >499 Very high Based on AHA Guidelines for fasting triglyceride, December 2011. Performed By: #### L IPR #### [address] [id number] Home Teaching Grades 9 Thru 12 Teacher: Erik Redding MD T3, Freeon 10-04-2022 Free T3 [Mass/Vol] 3.76 pg/mL Normal 2.02-4.43 [facility] Comment on above: Performed By: #### F T3 #### [address] [id number] Home Teaching Grades 9 Thru 12 Teacher: Erik Redding MD #### CMPF #### [facility] [address] [place], [facility] Home Teaching Grades 9 Thru 12 Teacher: Hemant Murphy MD Comp Metabol,Fastingon 10-03 Albumin [Mass/Vol] 4.6 g/dL Normal 3.5-5.2 [facility] Comment on above: Performed By: #### F T3 #### [address] [address] Home Teaching Grades 9 Thru 12 Teacher: Erik Redding MD #### CMPF #### [facility] [address] [place] [id number] Home Teaching Grades 9 Thru 12 Teacher: Hemant Murphy MD Albumin/Glob Ratio 1.3 Normal 1.0-2.5 [facility] Comment on above: Performed By: #### F T3 #### [address] [place] [address] Home Teaching Grades 9 Thru 12 Teacher: Erik Redding MD #### CMPF #### [facility] [address] [place], [place] [id number] Home Teaching Grades 9 Thru 12 Teacher: Hemant Murphy MD Alkaline Phos 91 U/L Normal 35-104 [facility] Comment on above: Performed By: #### F T3 #### [address] [address] Home Teaching Grades 9 Thru 12 Teacher: Erik Redding MD #### CMPF #### [facility] [address] [place], [place] [id number] Home Teaching Grades 9 Thru 12 Teacher: Hemant Murphy MD ALT [Catalytic activity/Vol] 39 U/L High 5-33 [facility] Comment on above: Performed By: #### F T3 #### [address] [address] Home Teaching Grades 9 Thru 12 Teacher: Erik Redding MD #### CMPF #### [address] [place], [place] [id number] Home Teaching Grades 9 Thru 12 Teacher: Hemant Murphy MD Anion gap [Moles/Vol] 13 mmol/L Normal 9-17 [facility] Comment on above: Performed By: #### F T3 #### [address] [address] Home Teaching Grades 9 Thru 12 Teacher: Erik Redding MD #### CMPF #### [facility] [address] [place] [address] Dr. Gomez, [place] [id number] Home Teaching Grades 9 Thru 12 Teacher: Hemant Murphy MD AST [Catalytic activity/Vol] 34 U/L High <32 [facility] Comment on above: Performed By: #### F T3 #### [address] [address] Home Teaching Grades 9 Thru 12 Teacher: Erik Redding MD #### CMPF #### [facility] [address] [place] [address] Dr. Gomez [place] [id number] Home Teaching Grades 9 Thru 12 Teacher: Hemant Murphy MD Bilirubin [Mass/Vol] 0.8 mg/dL Normal 0.3-1.[address] [facility] Comment on above: Performed By: #### F T3 #### [address] [place] [address] Home Teaching Grades 9 Thru 12 Teacher: Erik Redding MD #### CMPF #### [facility] [address] [place], [place] [id number] Home Teaching Grades 9 Thru 12 Teacher: Hemant Murphy MD BUN/CRE Ratio 20 Normal 9-20 [facility] Comment on above: Performed By: #### F T3 #### [address] [address] Home Teaching Grades 9 Thru 12 Teacher: Erik Redding MD #### CMPF #### [facility] [address] [place] [address] Dr. [place], [place] [id number] Home Teaching Grades 9 Thru 12 Teacher: Hemant Murphy MD Calcium [Mass/Vol] 9.2 mg/dL Normal 8.6-10.4 [facility] Comment on above: Performed By: #### F T3 #### [address] [address] Home Teaching Grades 9 Thru 12 Teacher: Erik Redding MD #### CMPF #### [address] [place], [place] [id number] Home Teaching Grades 9 Thru 12 Teacher: Hemant Murphy MD Chloride [Moles/Vol] 101 mmol/L Normal 98-[address] [facility] Comment on above: Performed By: #### F T3 #### [address] [address] Home Teaching Grades 9 Thru 12 Teacher: Erik Redding MD #### CMPF #### [facility] [address] [place], [place] [id number] Home Teaching Grades 9 Thru 12 Teacher: Hemant Murphy MD CO2 [Moles/Vol] 22 mmol/L Normal 20-31 [facility] Comment on above: Performed By: #### F T3 #### [facility] [address] [place] [address] Home Teaching Grades 9 Thru 12 Teacher: Erik Redding MD #### CMPF #### [facility] [address] [place], [place] [id number] Home Teaching Grades 9 Thru 12 Teacher: Hemant Murphy MD Creatinine [Mass/Vol] 0.54 mg/dL Normal 0.50-0.90 [facility] Comment on above: Performed By: #### F T3 #### [address] [address] Home Teaching Grades 9 Thru 12 Teacher: Erik Redding MD #### CMPF #### [facility] [address] [place] [address] Home Teaching Grades 9 Thru 12 Teacher: Hemant Murphy MD GFR/1.73 sq M.predicted among non-blacks MDRD (S/P/Bld) [Vol rate/Area] mL/min/{1.73_m2} Normal >60 [facility] Comment on above: Result Comment: These [...] secretion. Performed By: #### F T3 #### [facility] [address] [place] [address] Home Teaching Grades 9 Thru 12 Teacher: Erik Redding MD #### CMPF #### [facility] [address] [place] [address] Home Teaching Grades 9 Thru 12 Teacher: Hemant Murphy MD Glucose [Mass/Vol] 88 mg/dL Normal 70-99 [facility] Comment on above: Performed By: #### F T3 #### [address] [address] Home Teaching Grades 9 Thru 12 Teacher: Erik Redding MD #### CMPF #### [address] [place], [place] [id number] Home Teaching Grades 9 Thru 12 Teacher: Hemant Murphy MD Potassium [Moles/Vol] 4.3 mmol/L Normal 3.7-5.3 [facility] Comment on above: Performed By: #### F T3 #### [address] [address] Home Teaching Grades 9 Thru 12 Teacher: Erik Redding MD #### CMPF #### [address] [place] [id number] Home Teaching Grades 9 Thru 12 Teacher: Hemant Murphy MD Protein [Mass/Vol] 8.1 g/dL Normal 6.4-8.3 [facility] Comment on above: Performed By: #### F T3 #### [address] [address] Home Teaching Grades 9 Thru 12 Teacher: Erik Redding MD #### CMPF #### [address] [place], [facility]83 Home Teaching Grades 9 Thru 12 Teacher: Hemant Murphy MD Sodium [Moles/Vol] 136 mmol/L Normal 135-144 [facility] Comment on above: Performed By: #### F T3 #### [address] [address] Home Teaching Grades 9 Thru 12 Teacher: Erik Redding MD #### CMPF #### [address] [place], [place] [id number] Home Teaching Grades 9 Thru 12 Teacher: Hemant Murphy MD Urea nitrogen [Mass/Vol] 11 mg/dL Normal 6-20 [facility] Comment on above: Performed By: #### F T3 #### [address] [address] Home Teaching Grades 9 Thru 12 Teacher: Erik Redding MD #### CMPF #### [facility] [address] [place] [address] [place] [address] Home Teaching Grades 9 Thru 12 Teacher: Hemant Murphy MD Comprehensive Metabolic Pane l, [...] [Moles/Vol] 22 mmol/L 20 - 31 mmol/L [facility] Creatinine [Mass/Vol] 0.54 mg/dL 0.50 - [...] [Mass ratio] 20 mg/mg 9 - 20 [facility] Lipid Panelon 10-03-2022 Cholesterol [Mass/Vol] 172 mg/dL [...] 3.76 pg/mL 2.02 - 4. 43 pg/mL [facility] TSH With Reflex [id number] TSH Qn 1.66 m[IU]/L [facility] TSH w/reflex to FT4on 2022 Thyroid Stim. Horm. 1.66 uIU/mL Normal 0.30-5.[address] [facility] Comment on above: Performed By: #### T SHX #### [facility] [address] [place] [address] Home Teaching Grades 9 Thru 12 Teacher: Hemant Murphy MD PAP ACOG PANEL 2: 21 to 29on 12-20-2021 . . Normal [facility] Comment on above: Performed By: #### 4 [id number] #### [facility] [address] [place] [address] Dr. Sachin Pereira Age Gdln ACOG Testing - [facility] Comment on above: Performed By: #### 4 [id number] #### [facility] [address] [place] [address] Dr. Sachin Pereira DIAGNOSIS: Comment [facility] Comment on above: Result Comment: NEGA TIVE FOR INTRAEPITHELIAL LESION OR MALIGNANCY. Performed By: #### 4 [id number] #### [facility] [address] [place] [address] Dr. Sachin Pereira Methodology: Comment [facility] Comment on above: Result Comment: This liquid based ThinPrep(R) pap test was screened with the use of an image guided system. Performed By: #### 4 [id number] #### [facility] [address] [place] [address] Dr. Sachin Pereira Note: Comment [facility] Comment on above: Result Comment: The Pap smear is a screening test designed to aid in the detection of premalignant and malignant conditions of the uterine cervix. It is not a diagnostic procedure and should not be used as the sole means of detecting cervical cancer. Both false-positive and false-negative reports do occur. . Performed By: #### 4 [id number] #### [facility] [address] [place] [address] Dr. Sachin Pereira Performed by: Comment [facility] Comment on above: Result Comment: Collette Holliday, Treatment Supervisor (ASCP) Performed By: #### 4 [id number] #### [facility] [address] [place] [address] Dr. Sachin Pereira Reflex Criteria: Comment [facility] Comment on above: Result Comment: The HPV DNA reflex criteria were not met with this specimen result therefore, no HPV testing was performed. . Performed By: #### 4 [id number] #### [facility] [address] [place] [address] [address] [address] Sachin Pereira Specimen adequacy: Comment Normal [facility] Comment on above: Result Comment: Sati sfactory for evaluation. Endocervical and/or squamous metaplastic cells (endocervical component) are present. Performed By: #### 4 [id number] #### [facility] [address] [place], [place] [address] Dr. Sachin Pereira Vital Signs Date Time Vital Sign Value Performing Clinician Faci lity 04-23-2024 08:27-0500 Body mass index (BMI) [Ratio] 45.75 kg/m2 Gilles Regis DO Work Phone: [facility] 04-23-2024 08:27-0500 Body weight 140.52 kg Gilles Regis DO Work Phone: [facility] 04-23-2024 08:27-0500 Diastolic blood pressure 82 mm[Hg] Gilles Regis DO Work Phone: [facility] 04-23-2024 08:27-0500 Systolic blood pressure 150 mm[Hg] Gilles Regis DO Work Phone: [facility] 04-09-2024 11:19-0500 Body mass index (BMI) [Ratio] 45.69 kg/m2 Jesika MARIE Work Phone: [facility] 04-09-2024 11:19-0500 Body weight 140.34 kg Jesika MARIE Work Phone: [facility] 04-09-2024 11:19-0500 Diastolic blood pressure 84 mm[Hg] Jesika MARIE Work Phone: [facility] 04-09-2024 11:19-0500 Systolic blood pressure 144 mm[Hg] Jesika MARIE Work Phone: [facility] 03-19-2024 11:03-0500 Body mass index (BMI) [Ratio] 46.04 kg/m2 Gilles Regis DO Work Phone: [facility] 03-19-2024 11:03-0500 Body weight 141.43 kg Gilles Regis DO Work Phone: [facility] 03-19-2024 11:03-0500 Diastolic blood pressure 90 mm[Hg] Gilles Regis DO Work Phone: [facility] 03-19-2024 11:03-0500 Systolic blood pressure 148 mm[Hg] Gilles Regis DO Work Phone: [facility] 02-20-2024 10:16-0500 Body mass index (BMI) [Ratio] 44.45 kg/m2 Jesika MARIE Work Phone: [facility] 02-20-2024 10:16-0500 Body weight 136.53 kg Jesika MARIE Work Phone: [facility] 02-20-2024 10:16-0500 Diastolic blood pressure 84 mm[Hg] Jesika Mcknight PA Work Phone: [facility] 02-20-2024 10:16-0500 Systolic blood pressure 124 mm[Hg] Jesika Tammie PA Work Phone: [facility] 01-23-2024 11:02-0400 Body mass index (BMI) [Ratio] 44.3 kg/m2 Gilles Regis DO Work Phone: [facility] 01-23-2024 11:02-0400 Body weight 136.08 kg Gilles Regis DO Work Phone: [facility] 01-23-2024 11:02-0400 Diastolic blood pressure 82 mm[Hg] Gilles Regis DO Work Phone: [facility] 01-23-2024 11:02-0400 Systolic blood pressure 120 mm[Hg] Gilles Regis DO Work Phone: [facility] 12-26-2023 09:31-0400 Body mass index (BMI) [Ratio] 44.01 kg/m2 Gilles Regis DO Work Phone: [facility] 12-26-2023 09:31-0400 Body weight 135.17 kg Gilles Regis DO Work Phone: [facility] 12-26-2023 09:31-0400 Diastolic blood pressure 72 mm[Hg] Gilles Regis DO Work Phone: [facility] 12-26-2023 09:31-0400 Systolic blood pressure 120 mm[Hg] Gilles Regis DO Work Phone: [facility] 11-28-2023 08:56-0400 Body mass index (BMI) [Ratio] 44.08 kg/m2 Gilles Regis DO Work Phone: [facility] 11-28-2023 08:56-0400 Body weight 135.38 kg Gilles Regis DO Work Phone: [facility] 11-28-2023 08:56-0400 Diastolic blood pressure 70 mm[Hg] Gilles Regis DO Work Phone: [facility] 11-28-2023 08:56-0400 Systolic blood pressure 120 mm[Hg] Gilles Regis DO Work Phone: [facility] Healthcare Encounters Encounter Date Encounter Type Care Provider Facility Start: 04-23-2024 End: 04-23-2024 Bamboo flowsheet Gilles Regis DO Work Phone: [facility] Start: 04-23-2024 End: 04-23-2024 Bamboo flowsheet Gilles Regis DO Work Phone: [facility] Start: 04-23-2024 End: 04-23-2024 flow sheet Gilles Regis DO Work Phone: [facility] Comment on above: Third trimester preg chanel; 33 weeks gestation of ; Gestational hypertension without significant proteinuria in third trimester; Insulin controlled gestational diabetes mellitus (GDM) during , antepartum; Gestational diabetes mellitus (GDM), antepartum, gestational diabetes method of control unspecified Start: 04-23-2024 End: 04-23-2024 ambulatory GILLES REGIS [...] 04-09-2024 flow sheet Jesika MARIE Work Phone: [facility] Comment on above: Third trimester preg chanel; 31 weeks gestation of ; induced hypertension, antepartum; Gestational proteinuria in third trimester; Gestational hypertension without significant proteinuria in third trimester Start: 04-09-2024 End: 04-09-2024 ambulatory JESIKA MCKNIGHT Not Available Start: 03-19-2024 End: 03-19-2024 Bamboo flowsheet Gilles Regis DO Work Phone: [facility] Start: 03-19-2024 End: 03-19-2024 Bamboo [...] screening Start: 11-28-2023 End: 11-28-2023 ambulatory GILLES DANIELO Not Available Start: 11-22-2023 End: 11-22-2023 Clinisync Result Encounter Gilles Regis DO Work Phone: [facility] External [facility] Unsolicited Start: 11-22-2023 End: 11-22-2023 Clinisync Result Encounter Gilles Danielo DO Work Phone: [facility] Unsolicited Start: 11-08-2023 End: 11-08-2023 ambulatory GILLES STACY Not Available Start: 10-03-2022 End: 10-04-2022 ambulatory [place] [facility] Start: 10-03-2022 End: 10-03-2022 Subsequent hospital visit by physician Ny Michael DOOR PANELER - [employer]ER [facility] Comment on above: Screening for hypoth yroidism; Diabetes mellitus screening; Lipid screening Start: 12-14-2021 End: 12-14-[address] GILLES STACY Facility:[facility] Start: 02-10-2021 ambulatory [place] y:H1 Procedures Date Procedure Procedure Detail Performing Clinician Start: 04-23-2024 Urnls dip stick/tabl et rgnt non-auto w/o micrscp Gilles Regis DO Work Phone: Start: 04-13-2024 [facility] TOTAL PROTEIN 24 HOUR [...] Assay of triiodothyronine t3 free Ny Michael DOOR PANELER - [employer] Work Phone: Start: 10-03-2022 Lipid panel Ny Michael DOOR PANELER - [employer]ER Work Phone: Plan of Treatment Date Care Activity Detail Author Start: 05-14-2024 End: 05-14-2024 Professional / ancillary services management 05/14/2024 1:00 PM EST Ancillary Procedure [facility] [address] [place] [id number] [facility] Start: 05-07-2024 End: 05-07-2024 Patient encounter procedure 05/07/2024 8:40 AM EST Routine [facility] [address] [place] [id number] Jesika Mcknight PA [address] [place] [address] [facility] Start: 04-23-2024 End: 04-23-2024 Patient encounter procedure [facility] Comment on above: Arrived Start: 04-09-2024 End: 04-09-2025 Alanine aminotransferase [Enzymatic activity/volume] in Serum or Plasma ALT Lab Routine induced hypertension, antepartum Expected: 04/09/2024 (Approximate), Expires: 04/09/2025 [facility] Comment on above: Expected: 04/09/2024 (Approximate), Expires: 04/09/2025 Start: 04-09-2024 End: 04-09-2025 Aspartate aminotransferase [Enzymatic activity/volume] in Serum or Plasma AST Lab Routine induced hypertension, antepartum Expected: 04/09/2024 (Approximate), Expires: 04/09/2025 [facility] Comment on above: Expected: 04/09/2024 (Approximate), Expires: 04/09/2025 Start: 04-09-2024 End: 04-09-2025 CBC W Auto Differential panel - Blood CBC and differential Lab Routine induced hypertension, antepartum Expected: 04/09/2024 (Approximate), Expires: 04/09/2025 [facility] Comment on above: Expected: 04/09/2024 (Approximate), Expires: 04/09/2025 Start: 04-09-2024 End: 04-09-2025 Creatinine [Mass/volume] in Serum or Plasma Creatinine Lab Routine induced hypertension, antepartum Expected: 04/09/2024 (Approximate), Expires: 04/09/2025 [facility] Healthcare Work Phone: Comment on above: Expected: [...] AM EST Routine [facility] [address] [place] [phone] Jesika Mcknight PA [address] [place] [address] [facility] Start: 04-09-2024 End: 04-09-2024 Professional / ancillary services management 04/09/2024 10:30 AM EST Ancillary Procedure [facility] [address] [place] [id number] [facility] Start: 03-19-2024 End: 03-19-2025 [...] control unspecified Expected: 03/19/2024 (Approximate), Expires: 03/19/2025 [facility] Healthcare Comment on above: Expected: 03/19/2024 (Approximate), Expires: 03/19/2025 Start: 03-19-2024 End: 03-19-2024 Patient encounter procedure [facility] Comment on above: Arrived Start: 02-20-2024 End: 02-19-2025 CBC panel - Blood by Automated count CBC Lab Routine Diabetes mellitus screening Expected: 02/20/2024 (Approximate), Expires: 02/19/2025 [facility] Work Phone: Comment on above: Expected: 02/20/2024 (Approximate), Expires: 02/19/2025 Start: 02-20-2024 End: 02-19-2025 Measurement of glucose 1 hour after glucose challenge for glucose tolerance test Glucose tolerance, 1 hour Lab Routine Diabetes mellitus screening Expected: 02/20/2024 (Approximate), Expires: 02/19/2025 [facility] Healthcare Comment on above: Expected: 02/20/2024 (Approximate), Expires: 02/19/2025 Start: 02-20-2024 End: 02-20-2024 Patient encounter procedure [facility] Comment on above: Arrived Start: 01-23-2024 End: 01-23-2024 Patient encounter procedure [facility] Comment on above: Arrived Start: 01-23-2024 End: 01-23-2024 Professional / ancillary services management 01/23/2024 10:00 AM EDT Ancillary Procedure [facility] [address] [place] [address] [facility] Start: 12-26-2023 End: 01-25-2024 Alpha fetoprotein, maternal Alpha fetoprotein, maternal Lab Routine Need for maternal serum alpha-protein (MSAFP) screening Expected: 12/26/2023 (Approximate), Expires: 01/25/2024 [facility] Comment on above: Expected: 12/26/2023 (Approximate), Expires: 01/25/2024 Start: 12-26-2023 End: 12-25-2024 US for US OB ANATOMY SINGLE W US OB CERVICAL LENGTH Imaging Routine Screening, , for anatomic survey Expected: 12/26/2023 (Approximate), Expires: 12/25/2024 [facility] Comment on above: Expected: 12/26/2023 (Approximate), Expires: 12/25/2024 Start: 12-26-2023 End: 12-26-2023 Patient encounter procedure [facility] Comment on above: Arrived Start: 12-01-2023 Influenza vaccination Influenza Vacc ine (#1) [facility] Start: 11-28-2023 End: 11-27-2024 Measurement of glucose 1 hour after glucose challenge for glucose tolerance test Glucose tolerance, 1 hour Lab Routine Diabetes mellitus screening Expected: 11/28/2023 (Approximate), Expires: 11/27/2024 [facility] Work Phone: Comment on above: Expected: 11/28/2023 (Approximate), Expires: 11/27/2024 Start: 11-28-2023 End: 11-28-2023 Patient encounter procedure [facility] Comment on above: Arrived Start: 10-09-2023 End: 10-09-2023 Patient encounter procedure 10/09/2023 Office Visit Primary Care Ny Michael, DOOR PANELER - [employer]ER [address] [place] [address] [facility] Start: 10-02-2023 Depression Screen Depression Screen [facility] Start: 10-02-2023 DTaP/Tdap/Td vaccine (1 - Tdap) DTaP/Tdap/Td vaccine (1 - Tdap) [facility] Comment on above: Postponed from 07/16 (Patient Refused) Start: 10-02-2023 Hepatitis C screening Hepatitis C sc reen [facility] Comment on above: Postponed from 07/16 (Patient Refused) Start: 10-02-2023 HIV screening HIV screen [facility] Comment on above: Postponed from 07/16 [...] of cervix Pap smear [facility] CHLAMYDIA TRACHOMATI S (GENITO/STI) CHLAMYDIA TRACHOMATIS (GENITO/STI) Lab Routine Exposure to STD Ordered: 12/26/2023 [facility] Comment on above: Ordered: 12/26/2023 Cytology Cervical or vaginal smear or scraping study Pap Smear Pathology and Cytology Routine Well woman exam with routine gynecological exam Ordered: 12/26/2023 [facility] Comment on above: Ordered: 12/26/2023 Neisseria gonorrhoea e DNA [Presence] in Unspecified specimen by SHANNA with probe detection Neisseria gonorrhea DNA probe, direct Lab Routine Exposure to STD Ordered: 12/26/2023 [facility] Comment on above: Ordered: 12/26/2023 SURESWAB(R) ADVANCED VAGINITIS PLUS, TMA SURESWAB(R) ADVANCED VAGINITIS PLUS, TMA Pathology and Cytology Routine Exposure to STD Ordered: 12/26/2023 [facility] Work Phone: Comment on above: Ordered: 12/26/2023 Immunizations Immunization Date Immunization Notes Care Provider Fa andrés 03-06-2021 COVID-19, J&J, (age 18y+), IM, 0.5 mL Ny Michael DOOR PANELER - [employer]ER Work Phone: [facility] Payers Date Payer Category Payer Private Health Insurance [id number] 2022 Private Health Insurance [id number] 1996 Unknown [id number] 2.16.84 [id number] 1996 Unknown [id number] 2.16.84 [id number] 1996 Unknown [id number] 2.16.8 [id number] 1996 Unknown [id number] 2.16.84 [id number] 1996 Unknown [id number] 2.16.84 [id number] 1996 Unknown [id number] 2.16.84 [id number] 1996 Unknown [id number] 2.16.84 [id number] 1996 Unknown [id number] 2.16.84 [id number] 1996 Unknown [id number] 2.16.84 [id number] 1996 Unknown [id number] 2.16.84 [id number] 1996 Unknown [id number] 2.16.84 [id number] 1996 Unknown [id number] 2.16.84 [id number] 1959 Self-pay [id number] 1959 Unknown [id number] Social History Date Type Detail Facility Start: 10-01-2022 Tobacco smoking status [facility] Ex-smoker [facility] End: 05-30-2021 History of tobacco use Current smoker [facility] End: 05-30-2021 History of tobacco use Cigarette Smoker [facility] History of tobacco use Tobacco U se Types Packs/Day Years Used Date Smoking Tobacco: Former Cigarettes 0.5 5 Quit: 05/2021 E-Cigarettes Smokeless Tobacco: Never [facility] Start: 10-01-2022 Cigarettes smoked current (pack per day) - Reported 0.5 [facility] Start: 10-01-2022 Tobacco use and exposure Smokeless tobacco non-user [employer] Start: 10-01-2022 Alcohol intake Ex-drinker (finding) [employer] Start: 10-01-2022 History SDOH Physical Activity DPW 3 [employer] Start: 10-01-2022 History SDOH Physical Activity MPS 6 [employer] Start: 10-01-2022 History SDOH Financial 5 [employer] Start: 10-01-2022 History SDOH Food Worry 1 [employer] Start: 10-01-2022 History SDOH Transport Non-Med 2 [employer] Start: 10-01-2022 Alcohol Comment Socially [employer] Start: 1995 Sex Assigned At Female [employer] Tobacco smoking stat us [facility] Tobacco smoking consumption unknown [facility] Start: 09-17-2023 [facility] Start: 12-11-2022 Gender identity Identifies as female gender (finding) [facility] Start: 12-11-2022 Sexual orientation Heterosexual (finding) [facility] Medical Equipment Procedure Code Equipment Code Equipment Origin al Text Equipment Identifier Dates [id number] Start: 03-16-2024 End: 08-01-2024 1 each by In Vit ro route Daily Use to check FSBS four times daily [id number] Start: 03-16-2024 End: 04-15-2024 Goals Date Patient Goal Desired Activity /State Personal health goal Clinical Notes 11-28-2023 to 04-23-2024 Suzanne Angela LPN - 04/23/2024 8:30 AM CYNTHIA Cooper - 04/09/2024 11:20 AM CYNTHIA Cooper - 03/19/2024 10:30 AM CYNTHIA Cooper - 02/20/2024 9:50 AM EST Note Date & Type Note Facility 04-23-2024 History of Presen t illness Narrative Reason [...] mg, Oral, Daily Blood Glucose Monitoring Suppl (ReelGenie Glucometer) w/Device kit 1 kit, Does not apply, Daily, Use four times daily to check FSBS. In the morning prior to breakfast & 1 hour after each meal for a total of 4times daily. labetalol (NORMODYNE) 100 mg, Oral, 2 times daily MV-Min-Fe Fum-FA-DHA ( 1 PO) [...] SYSTEMS Review of Systems: Review of Systems OBJECTIVE Objective: Physical Exam Constitutional: Appearance: Normal [...] nursing note reviewed. Exam conducted with a rotary drill rig operator present. Vitals: Estimated body mass index is 45.75 kg/m as calculated from the following: Height as of 01/01/23: 5' 9 . Weight as of this encounter: 309 lb 12.8 oz. BP: 150/82 Patient's last menstrual period was 09/03/2023. ASSESSMENT & PLAN ICD-10-CM 1. Third trimester Z34.93 POCT urinalysis dipstick manually resulted 2. 33 weeks gestation of Z3A.33 Patient presents today for a routine obstetrics appointment. Patient is currently 33w2d with a Estimated Date of Delivery: 06/09/24. Patient to have IOL on 05/19/24 due to elevated HTN. Patient will be referred to [facility] for management of elevated BP in . Patient advised on what symptoms to look for in regards to when she would need to be assessed at the hospital. Discuss possible [facility] in the future. Patient is currently doing NST/BPP weekly. Reviewed patients FSBS as well. Patient to increase labetalol 200mg TID. Patient to return to clinic in 1 week. Documented by Suzanne Angela LPN on behalf of: Gilles Stacy DO documented in this encounter [facility] 04-09-2024 History of Presen t illness Narrative [...] of: CYNTHIA Parker documented in this encounter [facility] 03-19-2024 History of Presen [...] Gilles Stacy DO documented in this encounter [facility] 02-20-2024 History of Presen [...] nursing note reviewed. Exam conducted with a rotary drill rig operator present. Vitals: Estimated body mass index is [...] hour glucose order to have done at [facility]. Orders Placed This Encounter Procedures CBC Glucose tolerance, 1 hour POCT urinalysis dipstick manually resulted Follow Up: Patient is to return to office in 2 week for routine OB appointment. Documented by Giovana Azar MA on behalf of: CYNTHIA Parker documented in this encounter [facility] 01-23-2024 History of Presen [...] nursing note reviewed. Exam conducted with a rotary drill rig operator present. Vitals: Estimated body mass index is [...] Gilles Stacy DO documented in this encounter [facility] 12-26-2023 History of Presen [...] nursing note reviewed. Exam conducted with a rotary drill rig operator present. Vitals: Estimated body mass index is [...] Gilles Stacy DO documented in this encounter [facility] 11-28-2023 History of Presen [...] nursing note reviewed. Exam conducted with a rotary drill rig operator present. Vitals: Estimated body mass index is [...] or undercooked meat, and stay away from [facility]. Patient has been consulted regarding any [...] Gilles Stacy DO documented in this encounter [facility] Evaluation note Diagnosis Screening for hypothyroidism Screening for thyroid disorder Diabetes mellitus screening Screening for diabetes mellitus Lipid screening Screening for lipoid disorders documented [facility]* Diagnosis 20 weeks gestation [...] third trimester [facility] Diagnosis Third trimester state, incidental 33 weeks gestation of Gestational hypertension without significant proteinuria in third trimester Insulin controlled gestational diabetes mellitus (GDM) during , antepartum Gestational diabetes mellitus (GDM), antepartum, gestational diabetes method of control unspecified documented in this encounter [facility] Summary Purpose Family History No Family History Records FoundNo Family History Records FoundNo Family History Records Found Advance Directives No Advanced Directives Records FoundNo Advanced Directives Records FoundNo Advanced Directives Records Found Additional Source Comments INFORMATION SOURCE (unrecogn ized section and content) DATE CREATED AUTHOR 12/29/2021 [facility] DATE CREATED AUTHOR AUTHOR'S ORGANIZ ATION 10/04/2022 [facility] DATE CREATED AUTHOR AUTHOR'S ORGANIZ ATION 04/25/2024 [facility] EPIC Care Teams (unrecognized sec tion and content) Pupil Personnel Services Director Relationship Specialty Start Date End Date Ny Michael, DOOR PANELER - [employer]INE [employer]OM[employer]ER [employer]SEMBLER [address] [phone] PCP - General Certified Nurse Practitioner 10/01/22 [...] BE BASED ON THE PRIMARY CLINICAL RECORDS. [facility] [employer] [facility]. provides no warranty or guarantee of the accuracy or completeness of information in this document.
--- NOTE | 2024-04-30 13:44 | US_ITS ---
[address] [address] Patient Name: DOREEN MARQUEZ MRN: [id number] date: 1995 Sex: F Assigned Patient Location: [facility] Current Patient Location: Accession/Order Number: [id number] Exam Date: 04/30/2024 13:46 Report Date: 04/30/2024 15:15 At the request of: GILLES DIEGO Procedure: US OB BPP w non-stress EXAMINATION: US OB BPP w non-stress HISTORY:Gestational diabetes mellitus COMPARISON: Ultrasound OB biophysical 04/23/2024 TECHNIQUE: Ultrasound biophysical profile was performed in the radiology department. BREATHING MOVEMENTS: 2 GROSS BODY MOVEMENTS: 2 TONE: 2 QUALITATIVE AMNIOTIC FLUID VOLUME: 2 PRESENTATION: CEPHALIC HEART RATE: 142.11 bpm AMNIOTIC FLUID VOLUME: 16.52 cm GESTATIONAL AGE: 34 weeks 2 days US/US OB BPP w non-stress IMPRESSION: 1. Total biophysical profile score: 8 Electronically authenticated by: PETRONA GANDHI Date: 04/30/2024 15:15
[2024-04-30 14:14] VITALS: BP 133/61; PULSE 88
== END 2024-04-30 14:37 | disposition home or self-care (01) ==
LOC: US 05:36 → FBC 13:41
PROVIDERS: Visit Provider Obstetrics & Gynecology
DX: O24.419 Gestational diabetes mellitus in pregnancy, unspecified control (principal); Z3A.34 34 weeks gestation of pregnancy
CPT/HCPCS: 76818

== ENCOUNTER 2024-05-02 19:33 | Observation (INO) | payer OTHER, SELFPAY ==
[2024-05-02] VITALS (23 sets, daily range): BP systolic 136–190; BP diastolic 68–102; PULSE 79–103; O2SAT 97–98
--- OUTSIDE RECORDS SUMMARY | 2024-05-02 19:38 | XMS_ITS | CCD ---
Author Organization [facility] Care Team Providers Care Continuous Conveyor Screen Drier Name Role Phone FIDENCIO ANDRES Primary Care Unavailable FIDENCIO ANDRES Attending Unavailable FIDENCIO ANDRES Admitting Unavailable REGIS, DR CAMPOVERDE Admitting Unavailable REGIS, DR CAMPOVERDE Consulting Unavailable REGIS, DR CAMPOVERDE Attending Unavailable FIDENCIO ANDRES Primary Care Unavailable Stephania Ny FELICIANO CNP Primary Care [facility] er [place] MICHAEL Referring Unavailable [place] MICHAEL Primary Care Unavailable Unavailable Primary Care Provider UnavailGILLES Jenkins Attending Unavailable GILLES STACY Attending Unavailable GILLES STACY Attending Unavailable REGISGILLES EVANGELISTA Attending Unavailable JESIKA MCKNIGHT Attending Unavailable GILLES STACY Attending Unavailable JESIKA MCKNIGHT Attending Unavailable Medications Current Medications Medication Drug Class(es) Dates Sig (Normalized) Sig (Original) aspirin 81 mg delayed release oral tablet (10 sources) Platelet Aggregation Inhibitor, Nonsteroidal Anti-inflammatory Drug take 1 tablet by mouth once daily aspirin 81 MG EC tablet Take 81 mg by mouth Daily Active Blood Glucose Monitoring Suppl (D-Care Glucometer) w/Device kit (11 sources) Start: 03-16-2024 End: 03-16-2025 Blood Glucose [...] ml insulin glargine 100 unt/ml pen injector (3 sources) Insulin Analog Start: 04-23-2024 End: 05-23-2024 inject 10 [IU] by subcutaneous injection at bedtime insulin glargine (Lantus SoloStar) 100 UNIT/ML pen Indications: Hyperglycemia Inject 10 Units under the skin at bedtime FILL ACCORDING TO INSURANCE COVERAGE 3 mL 2 04/23/2024 05/23/2024 Active isopropyl alcohol 0.7 ml/ml medicated pad (11 sources) Start: 03-16-2024 Alcohol Swabs (Alcohol Prep Pad) 70 % pads Indications: Gestational diabetes mellitus (GDM), antepartum, gestational diabetes method of control unspecified , Elevated glucose tolerance test Apply 1 Pad topically Daily Use four times daily to check FSBS. 150 each 3 03/16/2024 Active labetalol hydrochloride 100 mg oral tablet (12 sources) beta-Adrenergic Darlene Start: 04-23-2024 End: 05-23-2024 [...] Test Name Value Interpretation Reference Range Facility US OB BPP W NON-STRESS on 04-30-2024 [place] [address] Ultrasound Report Signed Patient: DOREEN VALLECILLO MR#: [id number] : 1995 Acct:[id number] Age/Sex: 28 / F ADM Date: 04/30/24 Loc: US Attending Dr: Gilles Stacy D.O. Ordering Physician: Gilles Stacy D.O. Date of Service: 04/30/24 Procedure(s): US OB BPP w non-stress Accession Number(s): [id number] cc: Gilles Stacy D.O.; Physician,Non-Staff [place] [facility] [place] [id number] Patient Name: DOREEN VALLECILLO MRN: [facility]:[id number] date: 1995 Sex: F Assigned Patient Location: [facility] Current Patient Location: Accession/Order Number: [id number] Exam Date: 04/30/2024 13:46 Report Date: 04/30/2024 15:15 At the request of: GILLES STACY Procedure: US OB BPP w non-stress EXAMINATION: US OB BPP w non-stress HISTORY:Gestational diabetes mellitus COMPARISON: Ultrasound OB biophysical 04/23/2024 TECHNIQUE: Ultrasound biophysical profile was performed in the radiology department. BREATHING MOVEMENTS: 2 GROSS BODY MOVEMENTS: 2 TONE: 2 QUALITATIVE AMNIOTIC FLUID VOLUME: 2 PRESENTATION: CEPHALIC HEART RATE: 142.11 bpm AMNIOTIC FLUID VOLUME: 16.52 cm GESTATIONAL AGE: 34 weeks 2 days US/US OB BPP w non-stress IMPRESSION: 1. Total biophysical profile score: 8 Electronically authenticated by: YOUNG SWANSON Date: 04/30/2024 15:15 Dictated By: Young Swanson M.D. Signed By: 04/30/24 1518 DD/ 14 TD/TT: Lead Painter: [facility] Radiology, Radiologist, MD - 04/30/2024 [place] [address] Ultrasound Report Signed Patient: DOREEN VALLECILLO MR#: [id number] : 1995 Acct:[id number] Age/Sex: 28 / F ADM Date: 04/30/24 Loc: US Attending Dr: Gilles Stacy D.O. Ordering Physician: Gilles Stacy D.O. Date of Service: 04/30/24 Procedure(s): US OB BPP w non-stress Accession Number(s): [id number] cc: Gilles Stacy D.O.; Physician,Non-Staff [place] [id number] Patient Name: DOREEN VALLECILLO MRN: [facility]:[id number] date: 1995 Sex: F Assigned Patient Location: [facility] Current Patient Location: Accession/Order Number: [id number] Exam Date: 04/30/2024 13:46 Report Date: 04/30/2024 15:15 At the request of: GILLES STACY Procedure: US OB BPP w non-stress EXAMINATION: US OB BPP w non-stress HISTORY:Gestational diabetes mellitus COMPARISON: Ultrasound OB biophysical 04/23/2024 TECHNIQUE: Ultrasound biophysical profile was performed in the radiology department. BREATHING MOVEMENTS: 2 GROSS BODY MOVEMENTS: 2 TONE: 2 QUALITATIVE AMNIOTIC FLUID VOLUME: 2 PRESENTATION: CEPHALIC HEART RATE: 142.11 bpm AMNIOTIC FLUID VOLUME: 16.52 cm GESTATIONAL AGE: 34 weeks 2 days US/US OB BPP w non-stress IMPRESSION: 1. Total biophysical profile score: 8 Electronically authenticated by: YOUNG SWANSON Date: 04/30/2024 15:15 Dictated By: Young Swanson M.D. Signed By: 04/30/248 DD/ 14 TD/TT: Lead Painter: [facility] Radiology Study observation (narrative) [facility] US OB BPP W NON-STRESS Ordered By: Radiologist Radiology on 04-30-2024 [facility] [employer] [facility] Work Phone: Urinalysis macro (dipstick) panel (U)on 04-23-2024 Bilirubin, UA Trace Negative - 4(70) +++ mg/dL [facility] Blood, UA Negative Negative - 50 Horacio/mcL [facility] Clarity, UA Clear [facility], UA [facility] e Glucose, UA Negative Negative - 2000(110) ++++ mg/dL [facility] Interpretation and review of laboratory results Abnormal [facility] Ketones, UA Negative Negative - 160(16) ++++ mg/dL [facility] Leukocytes, UA Trace Negative - 500+++ Nica/mcL [facility] Nitrite, UA Negative Negative - Positive [facility] pH, UA 6 5 - 9 [facility] Protein, UA Moderate Negative - 2000(20) ++++ mg/dL [facility] Spec Grav, UA 1.03 1 - 1.03 [facility] Urobilinogen, UA 0.2 0.2 - 12 mg/dL [facility] TBH TOTAL PROTEIN 24 HOUR UR INEon 04-13-2024 Interpretation and review of laboratory results Abnormal [facility] Protein (U) [Mass/Vol] 21.4 mg/dL High NINF - 11.9 mg/dL [facility] TBH TOTAL PROTEIN 24 HOUR URINE 310.3 High [facility] TOTAL VOLUME 24 HOUR URINE 1450 mL/24hr [facility] ALL CBC WITH AUTO DIFFon BASOPHILS ABSOLUTE AUTO 0.1 [facility] Basophils/100 WBC (Bld) 0.5 % 0.2 - 2.0 % [facility] Eosinophils/100 WBC (Bld) 1.4 % 0.9 - 7.0 % [facility] Erythrocyte distribution width (RBC) [Ratio] 15.1 % High 11.0 - 15.0 % [facility] Hematocrit (Bld) [Volume fraction] 36.2 % 36.0 - 48.0 % [facility] Hemoglobin (Bld) [Mass/Vol] 11.5 g/dL Low 12.0 - 16.0 g/dL [facility] IMMATURE GRANULOCYTES ABS AUTO 0.05 High [facility] Immature granulocytes/100 WBC (Bld) 0.3 % 0.0 - 0.5 % [facility] Interpretation and review of laboratory results Abnormal [facility] LYMPHOCYTES ABSOLUTE AUTO 2.9 [facility] Lymphocytes/100 WBC (Bld) 19.5 % Low 20.5 - 60.0 % [facility] MCH (RBC) [Entitic mass] 25 pg Low 26.7 - 34.0 pg [facility] MCHC (RBC) [Mass/Vol] 31.8 g/dL 29.9 - 35.2 g/dL [facility] MCV (RBC) [Entitic vol] 78.7 fL Low 81.0 - 99.0 fL [facility] MONOCYTES ABSOLUTE AUTO 1.2 High [facility] Monocytes/100 WBC (Bld) 7.6 % 1.7 [...] 2177 cm / 4 lbs, 12 oz (6503-6787 gm) [place] Normal: 1812 gm (3449-7496 gm) [place] Wt%: >97% for 31.3 wks [...] UA Negative Negative - 4(70) +++ mg/dL [facility] Blood, UA Negative Negative - 50 Horacio/mcL [facility] Clarity, UA Clear [facility] re Color, UA Yellow [facility] Glucose, UA Negative Negative - 1999(110) ++++ mg/dL [facility] Interpretation and review of laboratory results Abnormal [facility] Ketones, UA Negative Negative - 160(16) ++++ mg/dL [facility] Leukocytes, UA Negative Negative - 500+++ Nica/mcL [facility] Nitrite, UA Negative Negative - Positive [facility] pH, UA 6.5 5 - 9 [facility] e Protein, UA Positive Negative - 1999(20) ++++ mg/dL [facility] Spec Grav, UA 1.03 1 - 1.03 [facility] Urobilinogen, UA 1.0 0.2 - 12 mg/dL [facility] Urinalysis macro (dipstick) panel (U)on 03-19-2024 Bilirubin, UA Negative Negative - 4(70) +++ mg/dL [facility] Blood, UA Negative Negative - 50 Horacio/mcL [facility] Clarity, UA Clear [facility] re Color, UA Straw [facility] Glucose, UA Negative Negative - 1999(110) ++++ mg/dL [facility] Interpretation and review of laboratory results Abnormal [facility] Ketones, UA Negative Negative - 160(16) ++++ mg/dL [facility] Leukocytes, UA Trace Negative - 500+++ Nica/mcL [facility] Nitrite, UA Negative Negative - Positive [facility] pH, UA 6 5 - 9 [facility] Protein, UA Negative Negative - 1999(20) ++++ mg/dL [facility] Spec Grav, UA 1.03 1 - 1.03 [facility] Urobilinogen, UA 0.2 0.2 - 12 mg/dL [facility] GLUCOSE TOLERANCE 3 HOURon 1 05-13-2023 GLUCOSE TOLERANCE 3 HOUR High mg/dL [facility] Comment on above: GLU FAST 108H (<95) Col: 03/12/24 0757 GLU 1HR 190H (<180) Col: 03/12/24 0900 GLU 2HR 172H (<155) Col: 03/12/24 1000 GLU 3HR 121 (<140) Col: 03/12/24 1100 Interpretation and review of laboratory results Abnormal [facility] ALL CBC WITH AUTO DIFFon 11- 27-2024 BASOPHILS ABSOLUTE AUTO 0.1 [facility] Basophils/100 WBC (Bld) 0.5 % 0.2 - 2.0 % [facility] Eosinophils/100 WBC (Bld) 2.4 % 0.9 - 7.0 % [facility] Erythrocyte distribution width (RBC) [Ratio] 14.7 % 11.0 - 15.0 % [facility] Hematocrit (Bld) [Volume fraction] 36.9 % 36.0 - 48.0 % [facility] Hemoglobin (Bld) [Mass/Vol] 11.7 g/dL Low 12.0 - 16.0 g/dL [facility] IMMATURE GRANULOCYTES ABS AUTO 0.07 High [facility] Immature granulocytes/100 WBC (Bld) 0.5 % 0.0 - 0.5 % [facility] Interpretation and review of laboratory results Abnormal [facility] LYMPHOCYTES ABSOLUTE AUTO 3.3 [facility] Lymphocytes/100 WBC (Bld) 22.6 % 20.5 - 60.0 % [facility] MCH (RBC) [Entitic mass] 25.6 pg Low 26.7 - 34.0 pg [facility] MCHC (RBC) [Mass/Vol] 31.7 g/dL 29.9 - 35.2 g/dL [facility] MCV (RBC) [Entitic vol] 80.7 fL Low 81.0 - 99.0 fL [facility] MONOCYTES ABSOLUTE AUTO 1 High [facility] Monocytes/100 WBC (Bld) 6.7 % 1.7 - 12.0 % [facility] NEUTROPHILS ABSOLUTE AUTO 9.7 High [facility] Neutrophils/100 WBC (Bld) 67.3 % 43.0 - 75.0 % [facility] Platelet mean volume (Bld) [Entitic vol] 10.4 fL 9.5 - 13.5 fL [facility] EO # 0.3 [facility] PLT 339 [facility] TB[facility] RBC 4.57 [facility] TB[facility] WBC 14.4 High [facility] Urinalysis macro (dipstick) panel (U)on 02-20-2024 Bilirubin, UA Negative Negative - 4(70) +++ mg/dL [facility] Blood, UA Negative Negative - 50 Horacio/mcL [facility] Clarity, UA Clear [facility] Color, UA Yellow [facility] Glucose, UA Negative Negative - 1999(110) ++++ mg/dL [facility] Interpretation and review of laboratory results Abnormal [facility] Ketones, UA Negative Negative - 160(16) ++++ mg/dL [facility] Leukocytes, UA Trace Negative - 500+++ Nica/mcL [facility] Nitrite, UA Negative Negative - Positive [facility] pH, UA 7 5 - 9 [facility] e Protein, UA Negative Negative - 1999(20) ++++ mg/dL [facility] Spec Grav, UA 1.025 1 - 1.03 [facility] Urobilinogen, UA 0.2 0.2 - 12 mg/dL [facility] Urinalysis macro (dipstick) panel (U)on 01-23-2024 Bilirubin, UA Negative Negative - 4(70) +++ mg/dL [facility] Blood, UA Negative Negative - 50 Horacio/mcL [facility] Clarity, UA Clear [facility] re Color, UA Yellow [facility] Glucose, UA Negative Negative - 1999(110) ++++ mg/dL [facility] Interpretation and review of laboratory results Abnormal [facility] Ketones, UA Negative Negative - 160(16) ++++ mg/dL [facility] Leukocytes, UA Trace Negative - 500+++ Nica/mcL [facility] Nitrite, UA Negative Negative - Positive [facility] pH, UA 6.5 5 - 9 [facility] Protein, UA Negative Negative - 1999(20) ++++ mg/dL [facility] Spec Grav, UA 1.015 1 - 1.03 [facility] Urobilinogen, UA 0.2 0.2 - 12 mg/dL [facility] IGP,APTIMA HPV,AGE GDLNon AGE GDLN ACOG TESTING Note . [facility] Comment on above: TESTS RESULT FLAG UN ITS REF RANGE LAB Clinician Provided Cytology Information Source.............Cervix Other.............. No. of containers..01 ThinPrep Vial Age Raul RODARTE Micaela... FLAG LEGEND: L-Low Normal,H-High Normal,LL-Alert Low,HH-Alert High <-Panic Low,>-Panic High,A-Abnormal,AA-Critical Abnormal Performed at: 01 =G [facility] [id number] Vania Cabezas MD, IGP, RFX APTIMA HPV ASCU Note . [facility] Comment on above: TESTS RESULT FLAG UN ITS REF RANGE LAB DIAGNOSIS: 02 NEGATIVE FOR INTRAEPITHELIAL LESION OR MALIGNANCY. Specimen adequacy: 02 Satisfactory for evaluation. Endocervical and/or squamous metaplastic cells (endocervical component) are present. Performed by: 02 Marissa Franklin, Nuclear Equipment Design Engineer (ASC) . 02 Note: Note 02 The Pap [...] <-Panic Low,>-Panic High,A-Abnormal,AA-Critical Abnormal Performed at: [address] [phone] Vania Cabezas MD, Performed at: = - [facility] [id number] Ceramics Teacher: Vania Cabezas MD, Phone: [phone] Performed at: [facility] [id number] Ceramics Teacher: Vania Cabezas MD, Phone: [phone] SPATULA-ALONE CERVIX [facility] [employer] [facility] [facility] [employer] [facility] Urinalysis macro (dipstick) panel (U)on 12-26-2023 Bilirubin, UA Negative Negative - 4(70) +++ mg/dL [facility] Blood, UA Negative Negative - 50 Horacio/mcL [facility] Clarity, UA Clear [facility] re Color, UA Yellow [facility] [employer] [facility] [facility] [employer] [facility] Glucose, UA Negative Negative - 1999(110) ++++ mg/dL [facility] Interpretation and review of laboratory results Normal [facility] Ketones, UA Positive Negative - 160(16) ++++ mg/dL [facility] Comment on above: trace Leukocytes, UA Positive Negative - 500+++ Nica/mcL [facility] Comment on above: small Nitrite, UA Negative Negative - Positive [facility] pH, UA 6.0 5 - 9 [facility] Protein, UA Negative Negative - 1999(20) ++++ mg/dL [facility] Spec Grav, UA 1.015 1 - 1.03 [facility] Urobilinogen, UA 0.2 0.2 - 12 mg/dL [facility] GLUCOSE 1 HOURon 12-11-2023 Glucose [Mass/Vol] 131 mg/dL High NINF - 13 0 mg/dL [facility] Interpretation and review of laboratory results Abnormal [facility] No Panel Informationon 11-28 STAPHYLOCOCCUS EPIDERMIDIS, HAEMOLYTICUS, LUGDUNENSIS, SAPROPHYTICUS (URINA 0.000 [facility] STAPHYLOCOCCUS EPIDERMIDIS, HAEMOLYTICUS, LUGDUNENSIS, SAPROPHYTICUS (URINA Not detected [facility] URINARY TRACT INFECTION (HTR X)on 11-29-2023 ACINETOBACTER BAUMANII 0.000 [facility] ACINETOBACTER BAUMANII Not detected [facility] CHRISTIAN ALBICANS, PARAPSILOSIS, TROPICALIS 0.000 [facility] CHRISTIAN ALBICANS, PARAPSILOSIS, TROPICALIS Not detected [facility] CH[facility]STIAN GLABRATA 0.000 [facility] GLABRATA Not detected [facility] CHRISTIAN KRUSEI 0.000 [facility] CHRISTIAN KRUSEI Not detected [facility] CITROBACTER FREUNDII 0.000 [facility] CITROBACTER FREUNDII Not detected [facility] ENTEROBACTER AEROGENES, CLOACAE 0.000 [facility] re ENTEROBACTER AEROGENES, CLOACAE Not detected [facility] re ENTEROCOCCUS FAECALIS, FAECIUM 0.000 [facility] e ENTEROCOCCUS FAECALIS, FAECIUM Not detected [facility] e ESCHERICHIA COLI 0.000 [facility] ESCHERICHIA COLI Not detected [facility] KLEBSIELLA PNEUMONIAE, OXYTOCA 0.[address] [facility] are KLEBSIELLA PNEUMONIAE, OXYTOCA Not detected [facility] are MORGANELLA MORGANII 0.000 [facility] MORGANELLA MORGANII Not detected [facility] PROTEUS MIRABILIS, VULGARIS 0.000 [facility] PROTEUS MIRABILIS, VULGARIS Not detected [facility] PSEUDOMONAS AERUGINOSA 0.000 [facility] PSEUDOMONAS AERUGINOSA Not detected [facility] SERRATIA MARCESCENS 0.000 [facility] SERRATIA MARCESCENS Not detected [facility] STAPHYLOCOCCUS AUREUS 0.000 [facility] STAPHYLOCOCCUS AUREUS Not detected [facility] STREPTOCOCCUS AGALACTIAE (GROUP B STREP) 0.000 [facility] STREPTOCOCCUS AGALACTIAE (GROUP B STREP) Not detected [facility] STREPTOCOCCUS PYOGENES (GROUP A STREP) 0.000 [facility] STREPTOCOCCUS PYOGENES (GROUP A STREP) Not detected [facility] Urinalysis macro (dipstick) panel (U)on 11-28-2023 Bilirubin, UA Positive Negative - 4(70) +++ mg/dL [facility] Comment on above: small Blood, UA Negative Negative - 50 Horacio/mcL [facility] Clarity, UA Clear [facility] re Color, UA Yellow [facility] Glucose, UA Negative Negative - 1999(110) ++++ mg/dL [facility] Interpretation and review of laboratory results Abnormal [facility] Ketones, UA Negative Negative - 160(16) ++++ mg/dL [facility] Leukocytes, UA Trace Negative - 500+++ Nica/mcL [facility] Nitrite, UA Negative Negative - Positive [facility] pH, UA 7.0 5 - 9 [facility] Protein, UA Trace Negative - 1999(20) ++++ mg/dL [facility] Spec Grav, UA 1.025 1 - 1.03 [facility] Urobilinogen, UA 0.2 0.2 - 12 mg/dL [facility] ALL CBC WITH AUTO DIFFon BASOPHILS ABSOLUTE AUTO 0.1 [facility] Basophils/100 WBC (Bld) 0.4 % 0.2 - 2.0 % [facility] Eosinophils/100 WBC (Bld) 1.5 % 0.9 - 7.0 % [facility] Erythrocyte distribution width (RBC) [Ratio] 14.8 % 11.0 - 15.0 % [facility] Hematocrit (Bld) [Volume fraction] 39.4 % 36.0 - 48.0 % [facility] Hemoglobin (Bld) [Mass/Vol] 12.8 g/dL 12.0 - 16.0 g/dL [facility] IMMATURE GRANULOCYTES ABS AUTO 0.04 High [facility] Immature granulocytes/100 WBC (Bld) 0.3 % 0.0 - 0.5 % [facility] Interpretation and review of laboratory results Abnormal [facility] LYMPHOCYTES ABSOLUTE AUTO 3.4 [facility] Lymphocytes/100 WBC (Bld) 26.5 % 20.5 - 60.0 % [facility] MCH (RBC) [Entitic mass] 25.7 pg Low 26.7 - 34.0 pg [facility] MCHC (RBC) [Mass/Vol] 32.5 g/dL 29.9 - 35.2 g/dL [facility] MCV (RBC) [Entitic vol] 79.0 fL Low 81.0 - 99.0 fL [facility] MONOCYTES ABSOLUTE AUTO 1.0 High [facility] Monocytes/100 WBC (Bld) 7.4 % 1.7 - 12.0 % [facility] NEUTROPHILS ABSOLUTE AUTO 8.3 High [facility] Neutrophils/100 WBC (Bld) 63.9 % 43.0 - 75.0 % [facility] Platelet mean volume (Bld) [Entitic vol] 10.6 fL 9.5 - 13.5 fL [facility] are TBH EO # 0.2 [facility] TB PLT 345 [facility] TB RBC 4.99 [facility] TB WBC 12.9 High [facility] Lipid Profileon 10-04-2022 Cholesterol [Mass/Vol] 172 mg/dL Normal <200 [facility] Comment on above: Result Comment: Cholesterol Guidelines: <200 Desirable 200-240 Borderline >240 Undesirable Performed By: #### L IPR #### [facility] [address] [place], [place] [id number] Ceramics Teacher: Erik Redding MD Cholesterol in HDL [Mass/Vol] 36 mg/dL Low >40 [facility] Comment on above: Result Comment: HDL Guidelines: <40 Undesirable 40-59 Borderline >59 Desirable Performed By: #### L IPR #### [facility] [address] [place], [place] [id number] Ceramics Teacher: Erik Redding MD Cholesterol in LDL [Mass/Vol] 79 mg/dL Normal 0-130 [facility] Comment on above: Result Comment: LDL Guidelines: <100 Desirable 100-129 Near to/above Desirable 130-159 Borderline >159 Undesirable Direct (measured) LDL and calculated LDL are not interchangeable tests. Performed By: #### L IPR #### [facility] [address] [place] [id number] Ceramics Teacher: Erik Redding MD Cholesterol.total/Ch olesterol in HDL [Mass ratio] 4.8 {ratio} Normal <5 [facility] Comment on above: Performed By: #### L IPR #### [address] [address] Ceramics Teacher: Erik Redding MD Triglyceride [Mass/Vol] 285 mg/dL High <150 [facility] Comment on above: Result Comment: Triglyceride Guidelines: <150 Desirable 150-199 Borderline 200-499 High >499 Very high Based on AHA Guidelines for fasting triglyceride, December 2011. Performed By: #### L IPR #### [address] [address] Ceramics Teacher: Erik Redding MD T3, Freeon 9 Free T3 [Mass/Vol] 3.76 pg/mL Normal 2.02-4.43 [facility] Comment on above: Performed By: #### F T3 #### [address] [address] Ceramics Teacher: Erik Redding MD #### CMPF #### [facility] [address] [place] [id number] Ceramics Teacher: Hemant Murphy MD Comp Metabol,Fasting 6 Albumin [Mass/Vol] 4.6 g/dL Normal 3.5-5.2 [facility] Comment on above: Performed By: #### F T3 #### [address] [address] Ceramics Teacher: Erik Reddign MD #### CMPF #### [facility] [address] [place] [address] Ceramics Teacher: Hemant Murphy MD Albumin/Glob Ratio 1.3 Normal 1.0-2.5 [facility] Comment on above: Performed By: #### F T3 #### [address] [address] Ceramics Teacher: Erik Redding MD #### CMPF #### [facility] [address] [place], [place] [phone] Ceramics Teacher: Hemant Murphy MD Alkaline Phos 91 U/L Normal 35-104 [facility] Comment on above: Performed By: #### F T3 #### [facility] [address] [place] [address] Ceramics Teacher: Erik Redding MD #### CMPF #### [facility] [address] [place] [address] [address] [place], [place] [id number] Ceramics Teacher: Hemant Murphy MD ALT [Catalytic activity/Vol] 39 U/L High 5-33 [facility] Comment on above: Performed By: #### F T3 #### [address] [address] Ceramics Teacher: Erik Redding MD #### CMPF #### [facility] [address] [place] [address] [address] [place], [place] [id number] Ceramics Teacher: Hemant Murphy MD Anion gap [Moles/Vol] 13 mmol/L Normal 9-17 [facility] Comment on above: Performed By: #### F T3 #### [address] [address] Ceramics Teacher: Erik Redding MD #### CMPF #### [address] [place], [place] [id number] Ceramics Teacher: Hemant Murphy MD AST [Catalytic activity/Vol] 34 U/L High <32 [facility] Comment on above: Performed By: #### F T3 #### [address] [address] Ceramics Teacher: Erik Redding MD #### CMPF #### [facility] [address] [place] [address] [address] [place], [place] [id number] Ceramics Teacher: Hemant Murphy MD Bilirubin [Mass/Vol] 0.8 mg/dL Normal 0.3-1.2 [facility] Comment on above: Performed By: #### F T3 #### [facility] [address] [place] [address] Ceramics Teacher: Erik Redding MD #### CMPF #### [facility] [address] [place], [place] [id number] Ceramics Teacher: Hemant Murphy MD BUN/CRE Ratio 20 Normal 9-20 [facility] Comment on above: Performed By: #### F T3 #### [facility] [address] [place] [address] Ceramics Teacher: Erik Rdeding MD #### CMPF #### [facility] [address] [place] [address] [address] [place], [place] [id number] Ceramics Teacher: Hemant Murphy MD Calcium [Mass/Vol] 9.2 mg/dL Normal 8.6-10.4 [facility] Comment on above: Performed By: #### F T3 #### [facility] [address] [place] [address] Ceramics Teacher: Erik Redding MD #### CMPF #### [facility] [address] [place] [address] [address] [place], [place] [id number] Ceramics Teacher: Hemant Murphy MD Chloride [Moles/Vol] 101 mmol/L Normal 98-107 [facility] Comment on above: Performed By: #### F T3 #### [facility] [address] [place] [address] Ceramics Teacher: Erik Redding MD #### CMPF #### [facility] [address] [place] [address] [address] [place], [place] [id number] Ceramics Teacher: Hemant Murphy MD CO2 [Moles/Vol] 22 mmol/L Normal 20-31 [facility] Comment on above: Performed By: #### F T3 #### [address] [address] Ceramics Teacher: Erik Redding MD #### CMPF #### [address] [place] [address] Ceramics Teacher: Hemant Murphy MD Creatinine [Mass/Vol] 0.54 mg/dL Normal 0.50-0.90 [facility] Comment on above: Performed By: #### F T3 #### [address] [address] Ceramics Teacher: Erik Redding MD #### CMPF #### [address] [place] [address] Ceramics Teacher: Hemant Murphy MD GFR/1.73 sq M.predicted among non-blacks MDRD (S/P/Bld) [Vol rate/Area] mL/min/{1.73_m2} Normal >60 [facility] Comment on above: Result Comment: These results [...] Performed By: #### F T3 #### [address] [address] Ceramics Teacher: Eirk Redding MD #### CMPF #### [facility] [address] [place] [address] [place] [address] Ceramics Teacher: Hemant Murphy MD Glucose [Mass/Vol] 88 mg/dL Normal 70-99 [facility] Comment on above: Performed By: #### F T3 #### [address] [address] Ceramics Teacher: Erik Redding MD #### CMPF #### [address] [place], [place] [phone] Ceramics Teacher: Hemant Murphy MD Potassium [Moles/Vol] 4.3 mmol/L Normal 3.7-5.3 [facility] Comment on above: Performed By: #### F T3 #### [address] [address] Ceramics Teacher: Erik Redding MD #### CMPF #### [address] [place], [place] [id number] Ceramics Teacher: Hemant Murphy MD Protein [Mass/Vol] 8.1 g/dL Normal 6.4-8.3 [facility] Comment on above: Performed By: #### F T3 #### [address] [address] Ceramics Teacher: Erik Redding MD #### CMPF #### [address] [place], [place] [id number] Ceramics Teacher: Hemant Murphy MD Sodium [Moles/Vol] 136 mmol/L Normal 135-144 [facility] Comment on above: Performed By: #### F T3 #### [address] [address] Ceramics Teacher: Eirk Redding MD #### CMPF #### [address] [place], [place] [id number] Ceramics Teacher: Hemant Murphy MD Urea nitrogen [Mass/Vol] 11 mg/dL Normal 6-20 [facility] Comment on above: Performed By: #### F T3 #### [address] [address] Ceramics Teacher: Erik Redding MD #### CMPF #### [address] [place] [address] Ceramics Teacher: Hemant Murphy MD [facility] Metabolic Panelvia pulido, Fastingon 10-03-2022 Albumin [Mass/Vol] 4.6 g/dL 3.5 - 5.2 g/dL [facility] Albumin/Globulin [Mass ratio] 1.3 {ratio} 1.0 - 2.5 [facility] ALP [Catalytic activity/Vol] 91 U/L 35 - 104 U/L [facility] ALT [Catalytic activity/Vol] 39 U/L High 5 - 33 U/L [facility] Anion gap [Moles/Vol] 13 mmol/L 9 - 17 mmol/L [facility] AST [Catalytic activity/Vol] 34 U/L High NINF - 32 U/L [facility] Bilirubin [Mass/Vol] 0.8 mg/dL 0.3 - 1 .2 mg/dL [facility] Calcium [Mass/Vol] 9.2 mg/dL 8.6 - 10. 4 mg/dL [facility] Chloride [Moles/Vol] 101 mmol/L 98 - 10 7 mmol/L [facility] CO2 [Moles/Vol] 22 mmol/L 20 - 31 mmol/L [facility] Creatinine [Mass/Vol] 0.54 mg/dL 0.50 - 0.90 mg/dL [facility] GFR/1.73 sq M.predicted MDRD (S/P/Bld) [Vol rate/Area] - PINF [facility] Comment on above: These results are not [...] [Mass/Vol] 88 mg/dL 70 - 99 mg/dL [facility] Interpretation and review of laboratory results Abnormal [facility] Potassium [Moles/Vol] 4.3 mmol/L 3.7 - 5.3 mmol/L [facility] Protein [Mass/Vol] 8.1 g/dL 6.4 - 8.3 g/dL [facility] Sodium [Moles/Vol] 136 mmol/L 135 - 144 mmol/L [facility] Urea nitrogen [Mass/Vol] 11 mg/dL 6 - 20 mg/dL [facility] Urea nitrogen/Creatinine [Mass ratio] 20 mg/mg 9 - 20 [facility] Lipid Panelon 10-03-2022 Cholesterol [Mass/Vol] 172 mg/dL NINF - 200 mg/dL [facility] Comment on above: Cholesterol Guidelines: <200 Desirable 200-240 Borderline >240 Undesirable Cholesterol in HDL [Mass/Vol] 36 mg/dL Low 40 - PINF mg/dL [facility] Comment on above: HDL Guidelines: <40 Undesirable 40-59 Borderline >59 Desirable Cholesterol in LDL [Mass/Vol] 79 mg/dL 0 - 130 mg/dL [facility] Comment on above: LDL Guidelines: <100 Desirable 100-129 Near to/above Desirable 130-159 Borderline >159 Undesirable Direct (measured) LDL and calculated LDL are not interchangeable tests. Cholesterol.total/Ch olesterol in HDL [Mass ratio] 4.8 {ratio} NINF - 5 [facility] Interpretation and review of laboratory results Abnormal [facility] Triglyceride [Mass/Vol] 285 mg/dL High NINF - 150 mg/dL [facility] Comment on above: Triglyceride Guidelines: <150 Desirable 150-199 Borderline 200-499 High >499 Very high Based on AHA Guidelines for fasting triglyceride, December 2011. [facility] T3, Freeon 10-03-2022 Free T3 [Mass/Vol] 3.76 pg/mL 2.02 - 4. 43 pg/mL [facility] TSH With Reflex Ft4on 2022 TSH Qn 1.66 m[IU]/L [facility] TSH w/reflex to FT4on 2022 Thyroid Stim. Horm. 1.66 uIU/mL Normal 0.30-5.00 [facility] Comment on above: Performed By: #### T SHX #### [facility] [address] [place] [address] Ceramics Teacher: Hemant Murphy MD PAP ACOG PANEL 2: 22 to 29on 12-20-2021 . . Normal [facility] Comment on above: Performed By: #### [id number] #### [facility] [address] [place] [address] Dr. Sachin Pereira Age Gdln ACOG Testing - [facility] Comment on above: Performed By: #### [id number] #### [facility] [address] [place] [address] Dr. Sachin Pereira DIAGNOSIS: Comment [facility] Comment on above: Result Comment: NEGA TIVE FOR INTRAEPITHELIAL LESION OR MALIGNANCY. Performed By: #### [id number] #### [facility] [address] [place] [address] Dr. Sachin Pereira Methodology: Comment [facility] Comment on above: Result Comment: This liquid based ThinPrep(R) pap test was screened with the use of an image guided system. Performed By: #### [id number] #### [facility] [address] [place] [address] Dr. Sachin Pereira Note: Comment [facility] Comment on above: Result Comment: The Pap smear is a screening test designed to aid in the detection of premalignant and malignant conditions of the uterine cervix. It is not a diagnostic procedure and should not be used as the sole means of detecting cervical cancer. Both false-positive and false-negative reports do occur. . Performed By: #### 4 [id number] #### [facility] [address] [place] [address] Dr. Sachin Pereira Performed by: Comment [facility] Comment on above: Result Comment: Collette Holliday, Nuclear Equipment Design Engineer (ASCP) Performed By: #### [id number] #### [facility] [address] [place] [address] Dr. Sachin Pereira Reflex Criteria: Comment [facility] Comment on above: Result Comment: The HPV DNA reflex criteria were not met with this specimen result therefore, no HPV testing was performed. . Performed By: #### 4 [id number] #### [facility] [address] [place], [place] [address] Dr. Sachin Pereira Specimen adequacy: Comment Normal [facility] Comment on above: Result Comment: Sati sfactory for evaluation. Endocervical and/or squamous metaplastic cells (endocervical component) are present. Performed By: #### 4 [id number] #### [facility] [address] [place] [address] [address] Sachin Pereira Vital Signs Date Time Vital Sign Value Performing Clinician Faci lity 04-23-2024 08:27-0500 Body mass index (BMI) [Ratio] 45.75 kg/m2 Gilles Regis DO Work Phone: [facility] 04-23-2024 08:27-0500 Body weight 140.52 kg Gilles Regis DO Work Phone: [facility] 04-23-2024 08:27-0500 Diastolic blood pressure 82 mm[Hg] Gilles Regis DO Work Phone: [facility] 04-23-2024 08:27-0500 Systolic blood pressure 150 mm[Hg] Gilles Regis DO Work Phone: [facility] 04-09-2024 11:19-0500 Body mass index (BMI) [Ratio] 45.69 kg/m2 Jesika Mcknight PA Work Phone: [facility] 04-09-2024 11:19-0500 Body weight 140.34 kg Jesika Mcknight PA Work Phone: [facility] 04-09-2024 11:19-0500 Diastolic blood pressure 84 mm[Hg] Jesika Mcknight PA Work Phone: [facility] 04-09-2024 11:19-0500 Systolic blood pressure 144 mm[Hg] Jesika Mcknight PA Work Phone: [facility] 03-19-2024 11:03-0500 Body mass index (BMI) [Ratio] 46.04 kg/m2 Gilles Regis DO Work Phone: [facility] 03-19-2024 11:03-0500 Body weight 141.43 kg Gilles Regis DO Work Phone: [facility] 03-19-2024 11:03-0500 Diastolic blood pressure 90 mm[Hg] Gilles Regis DO Work Phone: [facility] 03-19-2024 11:03-0500 Systolic blood pressure 148 mm[Hg] Gilles Regis DO Work Phone: [facility] 02-20-2024 10:16-0500 Body mass index (BMI) [Ratio] 44.45 kg/m2 Jesika Tammie PA Work Phone: [facility] 02-20-2024 10:16-0500 Body weight 136.53 kg Jesika Tammie PA Work Phone: [facility] 02-20-2024 10:16-0500 Diastolic blood pressure 84 mm[Hg] Jesika Mcknight PA Work Phone: [facility] 02-20-2024 10:16-0500 Systolic blood pressure 124 mm[Hg] Jesika Tammie PA Work Phone: [facility] 01-23-2024 11:02-0400 Body mass index (BMI) [Ratio] 44.3 kg/m2 Gilles Regis DO Work Phone: [facility] 01-23-2024 11:02-0400 Body weight 136.08 kg Gilles Regis DO Work Phone: [facility] 01-23-2024 11:02-0400 Diastolic blood pressure 82 mm[Hg] Gilles Regis DO Work Phone: [facility] 01-23-2024 11:02-0400 Systolic blood pressure 120 mm[Hg] Gilles Regis DO Work Phone: [facility] 12-26-2023 09:31-0400 Body mass index (BMI) [Ratio] 44.01 kg/m2 Gilles Regis DO Work Phone: [facility] 12-26-2023 09:31-0400 Body weight 135.17 kg Gilles Regis DO Work Phone: [facility] 12-26-2023 09:31-0400 Diastolic blood pressure 72 mm[Hg] Gilles Regis DO Work Phone: [facility] 12-26-2023 09:31-0400 Systolic blood pressure 120 mm[Hg] Gilles Regis DO Work Phone: [facility] 11-28-2023 08:56-0400 Body mass index (BMI) [Ratio] 44.08 kg/m2 Gilles Regis DO Work Phone: [facility] 11-28-2023 08:56-0400 Body weight 135.38 kg Gilles Regis DO Work Phone: [facility] 11-28-2023 08:56-0400 Diastolic blood pressure 70 mm[Hg] Gilles Regis DO Work Phone: [facility] 11-28-2023 08:56-0400 Systolic blood pressure 120 mm[Hg] Gilles Regis DO Work Phone: [facility] Healthcare Encounters Encounter Date Encounter Type Care Provider Facility Start: 04-30-2024 End: 04-30-2024 Clinisync Result Encounter Gilles Regis DO Work Phone: [facility] External Department Unsolicited Start: 04-30-2024 End: 04-30-2024 Clinisync Result Encounter Gilles Regis DO Work Phone: [facility] External Department Unsolicited Start: 04-23-2024 End: 04-23-2024 Bamboo flowsheet Gilles Regis DO Work Phone: [facility] Start: 04-23-2024 End: 04-23-2024 Bamboo flowsheet Gilles Regis DO Work Phone: [facility] Start: 04-23-2024 End: 04-23-2024 flow sheet Gilles Regis DO Work Phone: [facility] Comment on above: [...] Start: 11-28-2023 End: 11-28-2023 flow sheet Gilles Danielo DO Work Phone: [facility] Comment on above: 12 weeks gestation o f ; Diabetes mellitus screening Start: 11-28-2023 End: 11-28-2023 ambulatory GILLES DANIELO Not Available Start: 11-22-2023 End: 11-22-2023 Clinisync Result Encounter Gilles Danielo DO Work Phone: [facility] External Department Unsolicited Start: 11-22-2023 End: 11-22-2023 Clinisync Result Encounter Gilles Maddenzio DO Work Phone: [facility] External Department Unsolicited Start: 11-08-2023 End: 11-08-2023 ambulatory GILLES DANIELO Not Available Start: 10-03-2022 End: 10-04-2022 ambulatory [place] MICHAEL [facility] Start: 10-03-2022 End: 10-03-2022 Subsequent hospital visit by physician Ny Michael COMPUTATIONAL BIOLOGIST - COMPOTYPE OPERATOR Work Phone: [facility] Comment on above: Screening for hypoth yroidism; Diabetes mellitus screening; Lipid screening Start: 12-14-2021 End: 12-14-[address] GILLES STACY Facility: Start: 02-10-2021 ambulatory [facility] [place] y:H1 Procedures Date Procedure Procedure Detail Performing Clinician Start: 04-30-2024 US OB BPP W NON-STRESS Gilles Regis DO Work Phone: Start: 04-23-2024 Urnls dip stick/tabl et rgnt [...] Assay of triiodothyronine t3 free Ny Michael COMPUTATIONAL BIOLOGIST - COMPOTYPE OPERATOR Work Phone: Start: 10-03-2022 Lipid panel Ny Michael COMPUTATIONAL BIOLOGIST - COMPOTYPE OPERATOR Work Phone: Plan of Treatment Date Care Activity Detail Author Start: 05-14-2024 End: 05-14-2024 Professional / ancillary services management 05/14/2024 1:00 PM EST Ancillary Procedure [facility] [address] [phone] [facility] Start: 05-07-2024 End: 05-07-2024 Patient encounter procedure 05/07/2024 8:40 AM EST Routine [facility] [address] [place] [phone] Jesika Mcknight PA [address] [place] [address] [facility] Start: 04-23-2024 End: 04-23-2024 Patient encounter procedure [facility] Comment on above: Arrived Start: 04-09-2024 End: 04-09-2025 Alanine aminotransferase [Enzymatic activity/volume] in Serum or Plasma ALT Lab Routine induced hypertension, antepartum Expected: 04/09/2024 (Approximate), Expires: 04/09/2025 [facility] Comment on above: Expected: 04/09/2024 (Approximate), Expires: 04/09/2025 Start: 04-09-2024 End: 04-09-2025 Aspartate aminotransferase [Enzymatic activity/volume] in Serum or Plasma AST Lab Routine induced hypertension, antepartum Expected: 04/09/2024 (Approximate), Expires: 04/09/2025 [facility] Comment on above: Expected: 04/09/2024 (Approximate), Expires: 04/09/2025 Start: 04-09-2024 End: 04-09-2025 CBC W Auto Differential panel - Blood CBC and differential Lab Routine induced hypertension, antepartum Expected: 04/09/2024 (Approximate), Expires: 04/09/2025 [facility] Comment on above: Expected: 04/09/2024 (Approximate), Expires: 04/09/2025 Start: 04-09-2024 End: 04-09-2025 Creatinine [Mass/volume] in Serum or Plasma Creatinine Lab Routine induced hypertension, antepartum Expected: 04/09/2024 (Approximate), Expires: 04/09/2025 [facility] Work Phone: Comment on above: Expected: 04/09/2024 (Approximate), Expires: 04/09/2025 Start: 04-09-2024 End: 04-09-2025 Lactate dehydrogenase [Enzymatic activity/volume] in Serum or Plasma by Lactate to pyruvate reaction Lactate dehydrogenase Lab Routine induced hypertension, antepartum Expected: 04/09/2024, Expires: 04/09/2025 [facility] Comment on above: Expected: 04/09/2024 , Expires: 04/09/2025 Start: 04-09-2024 End: 04-09-2025 Protein, urine, 24 hour [facility] Comment on above: Expected: 04/09/2024 (Approximate), Expires: 04/09/2025 Ordered: 04/09/2024 Start: 04-09-2024 End: 04-09-2025 Pt and ptt Pt and ptt Lab Routine induced hypertension, antepartum Expected: 04/09/2024, Expires: 04/09/2025 [facility] Comment on above: Expected: 04/09/2024 , [...] AM EST Routine [facility] [address] [place] [id number] Jesika Mcknight PA [address] [place] [address] [facility] Start: 04-09-2024 End: 04-09-2024 Professional / ancillary services management 04/09/2024 10:30 AM EST Ancillary Procedure [facility] [address] [address] [facility] Start: 03-19-2024 End: 03-19-2025 US biophysical profile w non stress test US biophysical profile w non stress test Imaging Routine Gestational diabetes mellitus (GDM), antepartum, gestational diabetes method of control unspecified Expected: 03/19/2024 (Approximate), Expires: 03/19/2025 [facility] Work Phone: Comment on above: Expected: 03/19/2024 (Approximate), Expires: 03/19/2025 Start: 03-19-2024 End: 03-19-2025 US for US OB SCAN FOR GROWTH Imaging Routine Gestational diabetes mellitus (GDM), antepartum, gestational diabetes method of control unspecified Expected: 03/19/2024 (Approximate), Expires: 03/19/2025 [facility] Comment on above: Expected: 03/19/2024 (Approximate), Expires: 03/19/2025 Start: 03-19-2024 End: 03-19-2024 Patient encounter procedure [facility] Comment on above: Arrived Start: 02-20-2024 End: 02-19-2025 CBC panel - Blood by Automated count CBC Lab Routine Diabetes mellitus screening Expected: 02/20/2024 (Approximate), Expires: 02/19/2025 [facility] Work Phone: Comment on above: Expected: 02/20/2024 (Approximate), Expires: 02/19/2025 Start: 02-20-2024 End: 02-19-2025 Measurement of glucose 1 hour after glucose challenge for glucose tolerance test Glucose tolerance, 1 hour Lab Routine Diabetes mellitus screening Expected: 02/20/2024 (Approximate), Expires: 02/19/2025 [facility] Comment on above: Expected: 02/20/2024 (Approximate), Expires: 02/19/2025 Start: 02-20-2024 End: 02-20-2024 Patient encounter procedure [facility] Comment on above: Arrived Start: 01-23-2024 End: 01-23-2024 Patient encounter procedure [facility] Comment on above: Arrived Start: 01-23-2024 End: 01-23-2024 Professional / ancillary services management 01/23/2024 10:00 AM EDT Ancillary Procedure [facility] [address] [address] [facility] Start: 12-26-2023 End: 01-25-2024 Alpha fetoprotein, maternal Alpha fetoprotein, maternal Lab Routine Need for maternal serum alpha-protein (MSAFP) screening Expected: 12/26/2023 (Approximate), Expires: 01/25/2024 [facility] Comment on above: Expected: 12/26/2023 (Approximate), Expires: 01/25/2024 Start: 12-26-2023 End: 12-25-2024 US for US OB ANATOMY SINGLE W US OB CERVICAL LENGTH Imaging Routine Screening, , for anatomic survey Expected: 12/26/2023 (Approximate), Expires: 12/25/2024 [facility] Comment on above: Expected: 12/26/2023 (Approximate), Expires: 12/25/2024 Start: 12-26-2023 End: 12-26-2023 Patient encounter procedure [facility] Comment on above: Arrived Start: 12-01-2023 Influenza vaccination Influenza Vacc ine (#1) [facility] Start: 11-28-2023 End: 11-27-2024 Measurement of glucose 1 hour after glucose challenge for glucose tolerance test Glucose tolerance, 1 hour Lab Routine Diabetes mellitus screening Expected: 11/28/2023 (Approximate), Expires: 11/27/2024 [facility] Work Phone: Comment on above: Expected: 11/28/2023 (Approximate), Expires: 11/27/2024 Start: 11-28-2023 End: 11-28-2023 Patient encounter procedure [facility] Comment on above: Arrived Start: 10-09-2023 End: 10-09-2023 Patient encounter procedure 10/09/2023 Office Visit Primary Care Stephania, Ny Pulido, COMPUTATIONAL BIOLOGIST - COMPOTYPE OPERATOR [address] [place] [address] [facility] [place] Start: 10-02-2023 Depression Screen Depression Screen [facility] Start: 10-02-2023 DTaP/Tdap/Td vaccine (1 - Tdap) DTaP/Tdap/Td vaccine (1 - Tdap) [facility] Comment on above: Postponed from 07/16 (Patient Refused) Start: 10-02-2023 Hepatitis C screening Hepatitis C sc reen [facility] Comment on above: Postponed from 07/16 (Patient Refused) Start: 10-02-2023 HIV screening HIV screen [facility] Comment on above: Postponed from 07/16 (Patient Refused) Start: 10-02-2023 HPV vaccine (1 - 2-d ose series) HPV vaccine (1 - 2-dose series) [facility] Comment on above: Postponed from 07/16 (Patient Refused) Start: 10-30-2022 Influenza vaccination Flu vaccine (# 1) [facility] Start: 05-01-2021 COVID-19 Vaccine (2 - Booster for Kinga series) COVID-19 Vaccine (2 - Booster for Kinga series) [facility] Start: 2017 Screening for malign ant neoplasm of cervix Pap smear [facility] CHLAMYDIA TRACHOMATI S (GENITO/STI) CHLAMYDIA TRACHOMATIS (GENITO/STI) Lab Routine Exposure to STD Ordered: 12/26/2023 [facility] Comment on above: Ordered: 12/26/2023 Cytology Cervical or vaginal smear or scraping study Pap Smear Pathology and Cytology Routine Well woman exam with routine gynecological exam Ordered: 12/26/2023 [facility] Comment on above: Ordered: 12/26/2023 Neisseria gonorrhoea e DNA [Presence] in Unspecified specimen by SHANNA with probe detection Neisseria gonorrhea DNA probe, direct Lab Routine Exposure to STD Ordered: 12/26/2023 [facility] Comment on above: Ordered: 12/26/2023 SURESWAB(R) ADVANCED VAGINITIS PLUS, TMA SURESWAB(R) ADVANCED VAGINITIS PLUS, TMA Pathology and Cytology Routine Exposure to STD Ordered: 12/26/2023 [facility] Work Phone: Comment on above: Ordered: 12/26/2023 Immunizations Immunization Date Immunization Notes Care Provider Chano bowen 03-06-2021 COVID-19, J&J, (age 18y+), IM, 0.5 mL Ny Michael COMPUTATIONAL BIOLOGIST - COMPOTYPE OPERATOR Work Phone: [facility] Payers Date Payer Category Payer Private Health Insurance [id number] 2022 Private Health Insurance [id number] 1996 Unknown [id number] 2.16.84 [id number] 1996 Unknown [id number] 2.16.84 [id number] 1996 Unknown [id number] 2.16.8 [id number] 1996 Unknown [id number] 2.16.84 [id number] 1996 Unknown [id number] 2.16.84 [id number] 1996 Unknown [id number] 2.16.84 [id number] 1996 Unknown [id number] 2.16.84 [id number] 1996 Unknown [id number] 2.16.84 [id number] 1996 Unknown [id number] 2.16.84 [id number] 1996 Unknown [id number] 2.16.84 [id number] 1996 Unknown [id number] 2.16.84 [id number] 1996 Unknown [id number] 2.16.84 [id number] 1959 Self-pay [id number] 1959 Unknown [id number] Social History Date Type Detail Facility Start: 10-01-2022 Tobacco smoking status [facility] Ex-smoker [facility] End: 05-30-2021 History of tobacco use Current smoker [facility] End: 05-30-2021 History of tobacco use Cigarette Smoker Goal Zero History of tobacco use Tobacco U se Types Packs/Day Years Used Date Smoking Tobacco: Former Cigarettes 0.5 5 Quit: 05/2021 E-Cigarettes Smokeless Tobacco: Never Goal Zero Start: 10-01-2022 Cigarettes smoked current (pack per day) - Reported 0.5 Goal Zero Start: 10-01-2022 Tobacco use and exposure Smokeless tobacco non-user Goal Zero Start: 10-01-2022 Alcohol intake Ex-drinker (finding) Goal Zero Start: 10-01-2022 History SDOH Physical Activity DPW 3 Goal Zero Start: 10-01-2022 History SDOH Physical Activity MPS 6 Goal Zero Start: 10-01-2022 History SDOH Financial 5 Goal Zero Start: 10-01-2022 History SDOH Food Worry 1 [employer] Start: 10-01-2022 History SDOH Transport Non-Med 2 Goal Zero Start: 10-01-2022 Alcohol Comment Socially Goal Zero Start: 1995 Sex Assigned At Female Goal Zero Tobacco smoking stat [facility] Tobacco smoking consumption unknown [facility] Start: 09-17-2023 [facility] Start: 12-11-2022 Gender identity Identifies as female gender (finding) [facility] Start: 12-11-2022 Sexual orientation Heterosexual (finding) [facility] Medical Equipment Procedure Code Equipment Code Equipment Origin al Text Equipment Identifier Dates [id number] Start: 03-16-2024 End: 08-01-2024 1 each by In Vit ro route Daily Use to check FSBS four times daily [id number] Start: 03-16-2024 End: 04-15-2024 Goals Date Patient Goal Desired Activity /State Personal health goal Clinical Notes 11-28-2023 to 04-23-2024 Suzanne Angela LPN - 04/23/2024 8:30 AM CNYTHIA Cooper - 04/09/2024 11:20 AM CYNTHIA Cooper - 03/19/2024 10:30 AM CYNTHIA Cooper - 02/20/2024 9:50 AM EST Note Date & Type Note Facility 04-23-2024 History of Presen t illness Narrative Reason for Appointment: Patient ID: Doreen Vallecillo is a 28 y.o. female who presents for Routine Visit Patient presents today for Return OB appointment. MEDICATIONS Current Outpatient Medications Medication Instructions Alcohol Swabs (Alcohol Prep Pad) 70 % pads 1 Pad, Topical, Daily, Use four times daily to check FSBS. aspirin 81 mg, Oral, Daily Blood Glucose Monitoring Suppl (D-Net Element Glucometer) w/Device kit 1 kit, Does not [...] nursing note reviewed. Exam conducted with a processing tech present. Vitals: Estimated body mass index is [...] Gilles Stacy DO documented in this encounter [facility] 04-09-2024 History of Presen t illness Narrative Reason for Appointment: Patient ID: Doreen Vallecillo is a 28 y.o. female who [...] of: CYNTHIA Parker documented in this encounter [facility] 03-19-2024 History of Presen t illness Narrative Reason for Appointment: Patient ID: Doreen Vallecillo is a 28 y.o. female who [...] Gilles Stacy DO documented in this encounter [facility] 02-20-2024 History of Presen t illness Narrative Reason for Appointment: Patient ID: Doreen Vallecillo is a 28 y.o. female who [...] nursing note reviewed. Exam conducted with a processing tech present. Vitals: Estimated body mass index is [...] hour glucose order to have done at [facility]. Orders Placed This Encounter Procedures CBC Glucose tolerance, 1 hour POCT urinalysis dipstick manually resulted Follow Up: Patient is to return to office in 2 week for routine OB appointment. Documented by Giovana Azar MA on behalf of: CYNTHIA Parker documented in this encounter [facility] 01-23-2024 History of Presen t illness Narrative Reason for Appointment: Patient ID: Doreen Vallecillo is a 28 y.o. female who [...] nursing note reviewed. Exam conducted with a processing tech present. Vitals: Estimated body mass index is [...] Gilles Stacy DO documented in this encounter [facility] 12-26-2023 History of Presen t illness Narrative Reason for Appointment: Patient ID: Doreen Vallecillo is a 28 y.o. female who [...] nursing note reviewed. Exam conducted with a processing tech present. Vitals: Estimated body mass index is [...] Gilles Stacy DO documented in this encounter [facility] 11-28-2023 History of Presen t illness Narrative Reason for Appointment: Patient ID: Doreen Vallecillo is a 28 y.o. female who [...] nursing note reviewed. Exam conducted with a processing tech present. Vitals: Estimated body mass index is [...] or undercooked meat, and stay away from [facility]. Patient has been consulted regarding any [...] Gilles Stacy DO documented in this encounter [facility] Healthcare Evaluation note Diagnosis Screening for hypothyroidism Screening for thyroid disorder Diabetes mellitus screening Screening for diabetes mellitus Lipid screening Screening for lipoid disorders documented in this [facility] Diagnosis 20 weeks gestation [...] of control unspecified documented in this encounter [facility] Summary Purpose Family History No Family History Records FoundNo Family History Records FoundNo Family History Records Found Advance Directives No Advanced Directives Records FoundNo Advanced Directives Records FoundNo Advanced Directives Records Found Additional Source Comments INFORMATION SOURCE (unrecogn ized section and content) DATE CREATED AUTHOR 12/29/2021 [facility] DATE CREATED AUTHOR AUTHOR'S ORGANIZ ATION 10/04/2022 [facility] DATE CREATED AUTHOR AUTHOR'S ORGANIZ ATION 04/25/2024 [facility] Care Teams (unrecognized sec tion and content) Continuous Conveyor Screen Drier Relationship Specialty Start Date End Date Ny Michael, COMPUTATIONAL BIOLOGIST - COMPOTYPE OPERATOR [address] [id number] PCP - General Certified Nurse Practitioner 10/01/22 [...] BE BASED ON THE PRIMARY CLINICAL RECORDS. [employer] provides no warranty or guarantee of the accuracy or completeness of information in this document.
[2024-05-02 20:05] LABS: Bilirubin Urine NEGATIVE (NEGATIVE); Blood Urine TRACE-I (NEGATIVE); Color Urine YELLOW (YELLOW); Glucose Urine UA NEGATIVE (NEGATIVE); Ketones Urine TRACE mg/dL (NEGATIVE); Leukocyte Esterase Urine NEGATIVE (NEGATIVE); Nitrite Urine NEGATIVE (NEGATIVE); Protein Urine >=300 mg/dL (NEG/TRACE); Specific Gravity Urine >=1.030 (1.005-1.025); Urobilinogen Urine 0.2 EU/dL (0.2-1.0)
[2024-05-02 20:06] LABS: Clarity Urine SLIGHTLY CLOUDY (CLEAR); Urine Microscopic Indicated YES
[2024-05-02 20:13] LABS: Bacteria Urine MODERATE #/HPF (NONE SEEN); Mucus Urine NONE SEEN (NONE SEEN); RBC Urine 0-2 #/HPF (0-2); Squamous Epithelial Cell Urine MODERATE #/LPF (NONE/RARE)
[2024-05-02 20:14] LABS: Calcium Oxalate Crystals Urine MODERATE; Cast Seen? SEEN #/LPF (NONE SEEN); Crystals Seen? Seen #/HPF (None Seen); Fine Granular Casts Urine FEW; Hyaline Casts Urine FEW; Urine Culture Indicated YES
[2024-05-02] MEDS: 0.9 % SODIUM CHLORIDE 1,000 ML 999 ML IV (21:25)
[2024-05-02] MEDS: LABETALOL HCL 20 MG/4 ML SYRINGE IVP (21:28)
[2024-05-02] MEDS: CEFAZOLIN SODIUM/DEXTROSE,ISO 2 GM/50 ML PIGGYBACK IV (21:34)
[2024-05-02 21:35] LABS: Basophils Absolute Auto 0.1 10^3/uL (0.0-0.1); Basophils Percent Auto 0.5 % (0.2-2.0); Eosinophils Absolute Auto 0.4 10^3/uL (0.0-0.7); Eosinophils Percent Auto 2.7 % (0.9-7.0); Hematocrit 35.5 % (36.0-48.0); Hemoglobin 11.2 g/dL (12.0-16.0); Immature Granulocytes Abs Auto 0.03 10^3/uL (0.00-0.03); Immature Granulocytes Pct Auto 0.2 % (0.0-0.5); Lymphocytes Absolute Auto 3.4 10^3/uL (1.2-3.8); Mean Corpuscular HGB Conc 31.5 g/dL (29.9-35.2); Mean Corpuscular Hemoglobin 24.6 pg (26.7-34.0); Mean Platelet Volume 11.9 fL (9.5-13.5); Monocytes Absolute Auto 1.3 10^3/uL (0.3-0.8); Monocytes Percent Auto 9.3 % (1.7-12.0); Neutrophils Absolute Auto 8.6 10^3/uL (1.4-6.5); Neutrophils Percent Auto 62.3 % (43.0-75.0); Platelet Count 296 10^3/uL (150-450); Red Blood Count 4.55 10^6/uL (4.20-5.40); Red Cell Distribution Width 15.9 % (11.0-15.0); White Blood Count 13.8 10^3/uL (4.0-11.0)
[2024-05-02] MEDS: LABETALOL HCL 100 MG TABLET 200 MG PO (21:36)
[2024-05-02] MEDS: BETAMETHASONE ACE/BETAMETHASONE SOD PHOS 30 MG/5 ML 12 MG IM (21:41)
[2024-05-02 21:47] LABS: Alanine Aminotransferase 24 U/L (14-59); Aspartate Amino Transferase 22 U/L (15-37); Estimated GFR (African America >60 (>=60 mL/min/1.73m^2); Estimated GFR (Non-African Ame >60 (>=60 mL/min/1.73m^2); Prothrombin Time 9.6 sec (9.0-11.6); Uric Acid 8.9 mg/dL (2.6-6.0)
--- NOTE | 2024-05-02 21:53 | PM.OBHP ---
OB - H&P: HPI History of Present Illness Chief complaint: High Blood Pressure : 1 Para: 0 Gestational age based on last menstrual period: 34 4/7wks Narrative: 28 yo at 34 4/7wks presents with elevated bp 190-170's/90/s, gdma1 insulin controlled, non complaint with labetolol, denies taylor, visual changes, epigastric pain, ua shows greater than 300 protein, awaiting protein/cr clearance and additional labs, celestone given, iv, iv abx given, will start magnesium and discuss with mfm History of Present Dating criteria: LMP confirmed by 1st trimester US care: good care Ultrasounds: normal 1st trimester US and normal mid trimester US complications: preeclampsia and gestational diabetes Medical complications OB: none Labs Blood type: A (+) positive Rubella: immune RPR/VDLR: nonreactive GBS status: unknown HBsAG: negative Review of Systems ROS Status of ROS: 10 or more systems reviewed and unremarkable except as noted in history and below Meds Home Medications and Allergies Allergies Allergy/AdvReac Type Severity Reaction Status Date / Time No Known Drug Allergies Allergy Verified 05/02/24 21:10 Exam Constitutional Vital Signs, click to edit/add: Last Vital Signs Pulse 89 05/02/24 21:51 BP 165/94 H 05/02/24 21:51 Documenting provider has reviewed patient's vital signs: yes Common normals: no apparent distress Respiratory Common normals: normal respiratory effort and clear to auscultation bilaterally Cardio Common normals: regular rate and regular rhythm GI Common normals: Normal to inspection, nondistended, normoactive bowel sounds present Extremity Common normals: no clubbing, cyanosis or edema and no calf tenderness Results Labs Labs: Short CBC 05/02/24 Range/Units 21:18 WBC 13.8 H (4.0-11.0) 10^3/uL Hgb 11.2 L (12.0-16.0) g/dL Hct 35.5 L (36.0-48.0) % Plt Count 296 (150-450) 10^3/uL Urine 05/02/24 Range/Units 20:00 Urine Color Yellow (YELLOW) Urine Clarity Slightly cloudy A (CLEAR) Urine pH 6.0 (5.0-9.0) Ur Specific [place] >=1.030 A (1.005-1.025) Urine Protein >=300 A (NEG/TRACE) mg/dL Urine Glucose (UA) Negative (NEGATIVE) mg/dL OB - A/P Assessment and Plan (1) Gestational diabetes mellitus: (2) Preeclampsia: (3) Intrauterine : (4) UTI (urinary tract infection) during : Plan iv, iv abx, pih panel, protein/cr clearance, start magnesium, celestone given, labetalol given, will discuss possible transport with mfm,
[2024-05-02 21:55] LABS: INR <0.93
[2024-05-02 22:08] LABS: Fibrinogen 412 mg/dL (200-400)
[2024-05-02] MEDS: LABETALOL HCL 20 MG/4 ML SYRINGE 40 MG IVP (22:19)
[2024-05-02] MEDS: MAGNESIUM-BOLUS FROM THE BAG- 40 GM/1,000 ML IV.SOLN IV (22:28)
[2024-05-02] MEDS: LABETALOL HCL 20 MG/4 ML SYRINGE 80 MG IVP (22:46)
[2024-05-02] MEDS: MAGNESIUM SULFATE IN WATER 40 GM/1,000 ML IV.SOLN IV (22:50)
[2024-05-03] VITALS (8 sets, daily range): BP systolic 129–147; BP diastolic 65–78; PULSE 84–88; O2SAT 95–98
[2024-05-03 02:15] LABS: Protein Creatinine Ratio Urine 1.32; Total Protein Urine Random 398.7 mg/dL (<=11.9)
[2024-05-03] MEDS: ONDANSETRON PF 4 MG/2 ML VIAL IV (02:36)
== END 2024-05-03 02:48 | disposition short-term general hospital (02) ==
PROVIDERS: Admitting Provider Obstetrics & Gynecology; Visit Provider Obstetrics & Gynecology
DX: O16.3 Unspecified maternal hypertension, third trimester (principal); Z3A.34 34 weeks gestation of pregnancy
CPT/HCPCS: 36415; 51702; 81001; 82565; 82570; 84156; 84450; 84460; 84520; 84550; 85025; 85384; 85610; 85730; 87086; 96365; 96372; 96375; 96376; G0378; G0379; J0690; J0702; J1920; J2405; J3475

== ENCOUNTER 2024-12-28 20:14 | Outpatient (REF) | payer OTHER, SELFPAY ==
--- OUTSIDE RECORDS SUMMARY | 2024-12-28 12:47 | XMS_ITS ---
Author Name Auto Generated Organization [facility] Care Team Providers Care Feed House Supervisor Name Role Phone NAYA MCKEON Admitting Unavailable NAYA MCKEON Attending Unavailable JOHNATHON, GILLES Lee Referring Unavailable ROSE, ABILIO Consulting Unavailable WAYNE VALENTINO Consulting Unavailable JOHNATHON, GILLES R Referring Unavailable BROOK, LULI Mantilla Referring Unavailable JESSI, JUSTICE Mantilla Attending Unavailable BOWEN, JUSTICE Mantilla Attending Unavailable ALEC, SARITA L Referring Unavailable ALEC, SARITA L Primary Care Unavailable ALEC, SARITA L Referring Unavailable ALEC, SARITA L Primary Care Unavailable JOHNATHON, GILLES Attending Unavailable ROXANNA, MARY Attending Unavailable JOHNATHON, GILLES Attending Unavailable ROXANNA, MARY Attending Unavailable JOHNATHON, GILLES Attending Unavailable FELTER, JULIO CESAR Gutierres Attending Unavailable ALEC, SARITA Referring Unavailable JOHNATHON, GILLES Attending Unavailable ROXANNA, MARY Attending Unavailable JOHNATHON, GILLES Attending Unavailable ROXANNA, MARY Attending Unavailable MICHAEL, TYREE Attending Unavailable PROBLEMS DATE TYPE CONDITION / CODE ATTENDING STATUS [facility] 10/23/2024 Unknown Other abnormalit y of red blood cells / R71.8(ICD-10) [facility] 10/16/2024 Unknown Encounter for ge neral adult medical examination without abnormal findings / Z00.00(ICD-10) [facility] 10/16/2024 Unknown Encounter for sc reening for diabetes mellitus / Z13.1(ICD-10) [facility] 10/16/2024 Unknown Encounter for sc reening for lipoid disorders / Z13.220(ICD-10) [facility] 05/04/2024 Unknown Severe pre-eclam psia, third trimester / O14.13(ICD-10) NAYA MCKEON [facility] 05/03/2024 Unknown Other acute postprocedural pain / G89.18(ICD-10) NAAY MCKEON [facility] 05/03/2024 Unknown Hypertension / FREETEXT(AOF) NAYA MCKEON [facility] 05/03/2024 Unknown Preeclampsia wit h severe features / UNK(Unknown) NAYA MCKEON [facility] PROCEDURES No Procedure Records Found RESULTS IRON BINDING CAP. Collected: 10/23/2024 9:30 AM Stat us: F Source: [facility] TYPE CODE TESTS RESULT OUT OF RANGE REFERENCE UNITS LAB FE(LOINC) Iron 56 37-145 ug/dL LAB TIBC(LOINC) Total Fe Binding Cap 392 250-450 ug/dL LAB FESAT(LOINC) % Fe Saturation 14 Low 20-55 % LAB UIBC(LOINC) Unbound Fe Bind Cap 336 112-347 ug/dL Performed By: #### FEBC #### [employer] [address] [place] [address] [id number] Customer Development Representative: Erik Redding MD B12/FOLATE PANEL Collected: 9:29 AM Status: F Source: [facility] TYPE CODE TESTS RESULT OUT OF RANGE REFERENCE UNITS LAB B12(LOINC) Vitamin B12 618 485-5083 pg/mL LAB FOL(LOINC) Folic Acid 18.7 4.8-24.2 ng/mL Performed By: #### B12FOL ## ## [employer] [address] [place] [address] [phone] Customer Development Representative: Erik Redding MD LIPID PROFILE Collected: 10/16/2024 8:18 AM Status: F Source: [facility] TYPE CODE TESTS RESULT OUT OF RANGE REFERENCE UNITS LAB CHOL(LOINC) Cholesterol 152 0-199 mg/dL Result Comment: Cholesterol Guidelines: <200 Desirable 200-240 Borderline >240 Undesirable LAB HDL(LOINC) Cholesterol,HDL 32 Low >40 mg/dL Result Comment: HDL Guidelines: <40 Undesirable 40-59 Borderline >59 Desirable LAB LDL(LOINC) Cholesterol,LDL 48 0-100 mg/dL Result Comment: LDL Guidelines: <100 Desirable 100-129 Near to/above Desirable 130-159 Borderline >159 Undesirable Direct (measured) LDL and calculated LDL are not interchangeable tests. LAB CHR(LOINC) Chol/HDL Ratio 4.8 <5.0 LAB TRIG(LOINC) Triglycerides 362 High <150 mg/dL Result Comment: Triglyceride Guidelines: <150 Desirable 150-199 Borderline 200-499 High >499 Very high Based on AHA Guidelines for fasting triglyceride, December 2011. LAB VLDL(LOINC) Cholesterol,VLDL 72 High 1-30 mg/ dL Performed By: #### LIPR #### [employer] [address] [place] [address] Customer Development Representative: Erik Redding MD CBC WITH DIFF Collected: 10/16/2024 8:18 AM Status: F Source: [facility] TYPE CODE TESTS RESULT OUT OF RANGE REFERENCE UNITS LAB WBC(LOINC) WBC Count 11.4 High 3.5-11.3 k/uL LAB RBC(LOINC) RBC Count 5.18 High 3.95-5.11 m/uL LAB HGB(LOINC) Hemoglobin 12.9 11.9-15.1 g/dL LAB HCT(LOINC) Hematocrit 41.4 36.3-47.1 % LAB MCV(LOINC) MCV 79.9 Low 82.6-102.9 fL LAB MCH(LOINC) MCH 24.9 Low 25.2-33.5 pg LAB MCHC(LOINC) MCHC 31.2 28.4-34.8 g/dL LAB RDW(LOINC) RDW 15.7 High 11.8-14.4 % LAB PLT(LOINC) Platelet Count 328 138-453 k/uL LAB MPVX(LOINC) MPV 10.3 8.1-13.5 fL LAB NRBCS(LOINC) NRBC Automated 0.0 0.0 per 100 WBC LAB SEG(LOINC) Neutrophil (Seg) 54 36-65 % LAB LYM(LOINC) Lymphocyte 33 24-43 % LAB MON(LOINC) Monocyte 8 3-12 % LAB EO(LOINC) Eosinophil 4 1-4 % LAB BASO(LOINC) Basophil 1 0-2 % LAB IGRAN(LOINC) Immature Granulocyte 0 0 % LAB ASEG(LOINC) Abs.Neutrophil (Seg) 6.27 1.50-8.10 k/uL LAB ALYM(LOINC) Abs. Lymph 3.69 1.10-3.70 k/uL LAB AMONO(LOINC) Abs. Monocyte 0.89 0.10-1.20 k/u L LAB AEO(LOINC) Abs. Eosinophil 0.40 0.00-0.44 k/u L LAB ABASO(LOINC) Abs. Basophil 0.08 0.00-0.20 k/u L LAB AIGRAN(LOINC) Abs.Imm.Granulo cyte 0.03 0.00-0.30 k/uL Performed By: #### CDP, CMPF #### [facility] [address] [place] [address] Customer Development Representative: Naya Murphy MD #### GLYHGB #### [facility] [address] [place], [place] [phone] Customer Development Representative: Erik Redding MD COMP METABOL,FASTING Collected: 025 8:18 AM Status: F Source: [facility] TYPE CODE TESTS RESULT OUT OF RANGE REFERENCE UNITS LAB NA(LOINC) NA (Sodium) 138 136-145 mmol/L LAB K(LOINC) K (Potassium) 4.2 3.7-5.3 mmol/L LAB CL(LOINC) Chloride 103 98-107 mmol/L LAB HCO(LOINC) CO2 20 20-31 mmol/L LAB GAP(LOINC) Anion Gap 15 9-16 mmol/L LAB GLUF(LOINC) Glucose, Fasting 100 High 74-99 mg/dL LAB BUN(LOINC) BUN (Urea N) 11 6-20 mg/dL LAB CRE(LOINC) Creatinine 0.6 0.50-0.90 mg/dL LAB EGFR(LOINC) eGFR >90 >60 mL/min/1 .73m2 Result Comment: These results are not intended [...] following therapy that affects renal tubular secretion. LAB BUNCRE(LOINC) BUN/CRE Ratio 18 9-20 LAB CA(LOINC) Calcium 9.2 8.6-10.4 mg/dL LAB TP(INC) Protein, Total 7.6 6.6-8.7 g/dL LAB ALB(INC) Albumin 4.4 3.5-5.2 g/dL LAB AG([facility]) Albumin/Glob Ratio 1.4 1.0-2.5 LAB TBIL([facility]) Bilirubin, Total 0.5 0.00-1.20 mg/dL LAB ALP([facility]) Alkaline Phos 95 35-104 U/L LAB ALT([facility]) ALT 49 High 10-35 U/L LAB AST([facility]) AST 30 10-35 U/L Performed By: #### CONNIE PANDYA #### [facility] [address] [place] [address] Customer Development Representative: Naya Murphy MD #### GLYHGB #### [email or web address] [facility] [place] [address] Customer Development Representative: Erik Redding MD HEMOGLOBIN A1C Collected: 10/16/2024 8:18 AM Status: F Source: [facility] TYPE CODE TESTS RESULT OUT OF RANGE REFERENCE UNITS LAB PA1CM([facility]) Hemoglobin A1C 5.3 4.0-6.0 % LAB EAG([facility]) Estimated Ave Gluc 105 mg/dL Result Comment: The ADA and AACC recommend providing the estimated average glucose result to permit better patient understanding of their HBA1c result. Performed By: #### CONNIE PANDYA #### [facility] [address] [place] [address] Customer Development Representative: Naya Murphy MD #### GLYHGB #### [facility] [email or web address] [facility] [place] [address] Customer Development Representative: Erik Redding MD BEDSIDE GLUCOSE LAB Collected: 05/07/2024 7:22 PM Status: COMPLETED Source: [facility] TYPE CODE TESTS RESULT OUT OF RANGE REFERENCE UNITS LAB BEDG([facility]) BEDSIDE GLUCOSE LAB 110 High 65-99 mg/dL BEDSIDE GLUCOSE LAB Collected: 05/07/2024 9:34 AM Status: COMPLETED Source: [facility] TYPE CODE TESTS RESULT OUT OF RANGE REFERENCE UNITS LAB BEDG(LOINC) BEDSIDE GLUCOSE LAB 83 65-99 mg/dL BEDSIDE GLUCOSE LAB Collected: 05/07/2024 7:04 AM Status: COMPLETED Source: [facility] TYPE CODE TESTS RESULT OUT OF RANGE REFERENCE UNITS LAB BEDG(LOINC) BEDSIDE GLUCOSE LAB 70 65-99 mg/dL CBC AND AUTO DIFF Collected: 05/07/2024 6:22 AM Status: COMPLETED Source: [facility] TYPE CODE TESTS RESULT OUT OF RANGE REFERENCE UNITS LAB WBC(LOINC) WBC COUNT 13.8 High 4.0-11.0 X10E9/L LAB RBC(LOINC) RBC COUNT 3.80 3.80-5.20 X10E12/L LAB HGB(LOINC) HEMOGLOBIN 9.2 Low 11.7-15.5 g/dL LAB HCT(LOINC) HEMATOCRIT 29.0 Low 35-47 % LAB MCV(LOINC) MCV 76 Low 80-100 fL LAB MCH(LOINC) MCH 24.3 Low 27-34 pg LAB MCHC(LOINC) MCHC 31.8 Low 32-36 g/dL LAB RDW(LOINC) RDW 16.4 High 11.5-15.0 % LAB PLTC(LOINC) PLATELET COUNT 289 150-450 X10E9 /L LAB MPV(LOINC) MPV 9.5 7-12 fL LAB NEUT(LOINC) % NEUTROPHILS 68.6 % LAB LYMP(LOINC) % LYMPHOCYTES 22.2 % LAB MONO(LOINC) % MONOCYTES 8.5 % LAB EOS(LOINC) % EOSINOPHILS 0.2 % LAB BASO(LOINC) % BASOPHILS 0.5 % LAB ANEUT(LOINC) ABSOLUTE NEUTROPHIL 9.4 High 1.5-6.6 X10E9/L LAB ALYMP(LOINC) ABSOLUTE LYMPHOCYTE 3.1 1.0-3.5 X10E9/L LAB AMONO(LOINC) ABSOLUTE MONOCYTE 1.2 High 0-0.9 X10E9/L LAB AEOS(LOINC) ABSOLUTE EOSINOPHIL 0.0 0.0-0.4 X10E9/L LAB ABASO(LOINC) ABSOLUTE BASOPHIL 0.1 0.0-0.2 X10E9/L Performed By: #### CBCA, CMP #### [facility] ([id number]) [address] [place] [address], [address] [place] [address] COMPREHENSIVE METABOLIC PANEL Collected: 2024 6:22 AM Status: COMPLETED Source: [facility] TYPE CODE TESTS RESULT OUT OF RANGE REFERENCE UNITS LAB NA(LOINC) SODIUM 139 134-146 mmol/L LAB K(LOINC) POTASSIUM 4.1 3.5-5.0 mmol/L LAB CL(LOINC) CHLORIDE 105 98-109 mmol/L LAB CO2(LOINC) CARBON DIOXIDE 26 22-32 mmol/L LAB AGAP(LOINC) ANION GAP 8 5-15 mmol/L LAB BUN(LOINC) BLOOD UREA NITROGEN 10 5-23 mg/dL LAB CRET(LOINC) CREATININE 0.61 0.40-1.00 mg/dL Result Comment: METHOD TRACE ABLE TO IDMS STANDARD LAB GLU(LOINC) GLUCOSE 74 65-99 mg/dL LAB CA(LOINC) CALCIUM 7.8 Low 8.5-10.5 mg/dL LAB TP(LOINC) TOTAL PROTEIN 6.2 6.0-8.0 g/dL LAB ALB(LOINC) ALBUMIN 3.4 3.2-5.3 g/dL LAB ALK(LOINC) ALKALINE PHOSPHATASE 84 39-130 U/L LAB AST(LOINC) AST 27 0-41 U/L LAB ALT1(LOINC) ALT 30 0-31 U/L LAB TBIL(LOINC) BILIRUBIN,TOTAL 0.4 0.3-1.2 mg/d L LAB EGFR(LOINC) eGFR (CKD-EPI) NON-RACE DEPENDENT >90 >59 ml/min/1 .73sq.m Result Comment: Reported eGFR is based on the CKD-EPI 2020 equation that does not use a race coefficient. Performed By: #### CBCA, CMP #### [facility] ([id number]) [address] [place] [address], [address] [place] [address] BEDSIDE GLUCOSE LAB Collected: 05/06/2024 9:29 PM Status: COMPLETED Source: [facility] TYPE CODE TESTS RESULT OUT OF RANGE REFERENCE UNITS LAB BEDG(LOINC) BEDSIDE GLUCOSE LAB 132 High 65-99 mg/dL CBC AND AUTO DIFF Collected: 05/06/2024 5:03 PM Status: COMPLETED Source: [facility] TYPE CODE TESTS RESULT OUT OF RANGE REFERENCE UNITS LAB WBC(LOINC) WBC COUNT 14.4 High 4.0-11.0 X10E9/L LAB RBC(LOINC) RBC COUNT 3.65 Low 3.80-5.20 X10E12/L LAB HGB(LOINC) HEMOGLOBIN 9.2 Low 11.7-15.5 g/dL LAB HCT(LOINC) HEMATOCRIT 27.6 Low 35-47 % LAB MCV(LOINC) MCV 76 Low 80-100 fL LAB MCH(LOINC) MCH 25.3 Low 27-34 pg LAB MCHC(LOINC) MCHC 33.4 32-36 g/dL LAB RDW(LOINC) RDW 16.9 High 11.5-15.0 % LAB PLTC(LOINC) PLATELET COUNT 255 150-450 X10E9 /L LAB MPV(LOINC) MPV 9.2 7-12 fL LAB NEUT(LOINC) % NEUTROPHILS 71.8 % LAB LYMP(LOINC) % LYMPHOCYTES 18.1 % LAB MONO(LOINC) % MONOCYTES 9.4 % LAB EOS(LOINC) % EOSINOPHILS 0.1 % LAB BASO(LOINC) % BASOPHILS 0.6 % LAB ANEUT(LOINC) ABSOLUTE NEUTROPHIL 10.3 High 1.5-6.6 X10E9/L LAB ALYMP(LOINC) ABSOLUTE LYMPHOCYTE 2.6 1.0-3.5 X10E9/L LAB AMONO(LOINC) ABSOLUTE MONOCYTE 1.4 High 0-0.9 X10E9/L LAB AEOS(LOINC) ABSOLUTE EOSINOPHIL 0.0 0.0-0.4 X10E9/L LAB ABASO(LOINC) ABSOLUTE BASOPHIL 0.1 0.0-0.2 X10E9/L Performed By: #### CBCA, CMP #### [facility] ([id number]) [address] [place] [address], [address] [place] [address] COMPREHENSIVE METABOLIC PANEL Collected: 2024 5:03 PM Status: COMPLETED Source: [facility] TYPE CODE TESTS RESULT OUT OF RANGE REFERENCE UNITS LAB NA(LOINC) SODIUM 135 134-146 mmol/L LAB K(LOINC) POTASSIUM 4.1 3.5-5.0 mmol/L LAB CL(LOINC) CHLORIDE 101 98-109 mmol/L LAB CO2(LOINC) CARBON DIOXIDE 24 22-32 mmol/L LAB AGAP(LOINC) ANION GAP 10 5-15 mmol/L LAB BUN(LOINC) BLOOD UREA NITROGEN 9 5-23 mg/dL LAB CRET(LOINC) CREATININE 0.63 0.40-1.00 mg/dL Result Comment: METHOD TRACE ABLE TO IDMS STANDARD LAB GLU(LOINC) GLUCOSE 99 65-99 mg/dL LAB CA(LOINC) CALCIUM 7.2 Low 8.5-10.5 mg/dL LAB TP(LOINC) TOTAL PROTEIN 5.8 Low 6.0-8.0 g/dL LAB ALB(LOINC) ALBUMIN 3.2 3.2-5.3 g/dL LAB ALK(LOINC) ALKALINE PHOSPHATASE 76 39-130 U/L LAB AST(LOINC) AST 29 0-41 U/L LAB ALT1(LOINC) ALT 26 0-31 U/L LAB TBIL(LOINC) BILIRUBIN,TOTAL 0.5 0.3-1.2 mg/d L LAB EGFR(LOINC) eGFR (CKD-EPI) NON-RACE DEPENDENT >90 >59 ml/min/1 .73sq.m Result Comment: Reported eGFR is based on the CKD-EPI 2020 equation that does not use a race coefficient. Performed By: #### CBCA, CMP #### [facility] ([id number]) [address] [place] [address], [address] [place] [address] BEDSIDE GLUCOSE LAB Collected: 05/06/2024 4:14 PM Status: COMPLETED Source: [facility] TYPE CODE TESTS RESULT OUT OF RANGE REFERENCE UNITS LAB BEDG(LOINC) BEDSIDE GLUCOSE LAB 73 65-99 mg/dL BEDSIDE GLUCOSE LAB Collected: 05/06/2024 12:12 PM Status: COMPLETED Source: [facility] TYPE CODE TESTS RESULT OUT OF RANGE REFERENCE UNITS LAB BEDG(LOINC) BEDSIDE GLUCOSE LAB 79 65-99 mg/dL CBC AND AUTO DIFF Collected: 05/06/2024 6:19 AM Status: COMPLETED Source: [facility] TYPE CODE TESTS RESULT OUT OF RANGE REFERENCE UNITS LAB WBC(LOINC) WBC COUNT 19.1 High 4.0-11.0 X10E9/L LAB RBC(LOINC) RBC COUNT 3.96 3.80-5.20 X10E12/L LAB HGB(LOINC) HEMOGLOBIN 9.6 Low 11.7-15.5 g/dL LAB HCT(LOINC) HEMATOCRIT 30.2 Low 35-47 % LAB MCV(LOINC) MCV 76 Low 80-100 fL LAB MCH(LOINC) MCH 24.3 Low 27-34 pg LAB MCHC(LOINC) MCHC 31.9 Low 32-36 g/dL LAB RDW(LOINC) RDW 16.8 High 11.5-15.0 % LAB PLTC(LOINC) PLATELET COUNT 277 150-450 X10E9 /L LAB MPV(LOINC) MPV 9.5 7-12 fL LAB NEUT(LOINC) % NEUTROPHILS 85.5 % LAB LYMP(LOINC) % LYMPHOCYTES 8.0 % LAB MONO(LOINC) % MONOCYTES 6.4 % LAB EOS(LOINC) % EOSINOPHILS 0.0 % LAB BASO(LOINC) % BASOPHILS 0.1 % LAB ANEUT(LOINC) ABSOLUTE NEUTROPHIL 16.3 High 1.5-6.6 X10E9/L LAB ALYMP(LOINC) ABSOLUTE LYMPHOCYTE 1.5 1.0-3.5 X10E9/L LAB AMONO(LOINC) ABSOLUTE MONOCYTE 1.2 High 0-0.9 X10E9/L LAB AEOS(LOINC) ABSOLUTE EOSINOPHIL 0.0 0.0-0.4 X10E9/L LAB ABASO(LOINC) ABSOLUTE BASOPHIL 0.0 0.0-0.2 X10E9/L Performed By: #### CMP, CBCA #### [facility] ([id number]) [address] [place] [address], [address] [place] [address] COMPREHENSIVE METABOLIC PANEL Collected: 2024 6:19 AM Status: COMPLETED Source: [facility] TYPE CODE TESTS RESULT OUT OF RANGE REFERENCE UNITS LAB NA(LOINC) SODIUM 134 134-146 mmol/L LAB K(LOINC) POTASSIUM 4.3 3.5-5.0 mmol/L LAB CL(LOINC) CHLORIDE 101 98-109 mmol/L LAB CO2(LOINC) CARBON DIOXIDE 24 22-32 mmol/L LAB AGAP(LOINC) ANION GAP 9 5-15 mmol/L LAB BUN(LOINC) BLOOD UREA NITROGEN 8 5-23 mg/dL LAB CRET(LOINC) CREATININE 0.55 0.40-1.00 mg/dL Result Comment: METHOD TRACE ABLE TO IDMS STANDARD LAB GLU(LOINC) GLUCOSE 102 High 65-99 mg/dL LAB CA(LOINC) CALCIUM 7.2 Low 8.5-10.5 mg/dL LAB TP(LOINC) TOTAL PROTEIN 5.9 Low 6.0-8.0 g/dL LAB ALB(LOINC) ALBUMIN 3.3 3.2-5.3 g/dL LAB ALK(LOINC) ALKALINE PHOSPHATASE 80 39-130 U/L LAB AST(LOINC) AST 27 0-41 U/L LAB ALT1(LOINC) ALT 23 0-31 U/L LAB TBIL(LOINC) BILIRUBIN,TOTAL 0.7 0.3-1.2 mg/d L LAB EGFR(LOINC) eGFR (CKD-EPI) NON-RACE DEPENDENT >90 >59 ml/min/1 .73sq.m Result Comment: Reported eGFR is based on the CKD-EPI 2020 equation that does not use a race coefficient. Performed By: #### CMP, CBCA #### [facility] ([id number]) [address] [place] [address], [address] [place] [address] BEDSIDE GLUCOSE LAB Collected: 05/06/2024 6:01 AM Status: COMPLETED Source: [facility] TYPE CODE TESTS RESULT OUT OF RANGE REFERENCE UNITS LAB BEDG([facility]) BEDSIDE GLUCOSE LAB 102 High 65-99 mg/dL VENOUS BLOOD GAS Collected: 05/05/2024 7:44 PM Status: COMPLETED Source: [facility] TYPE CODE TESTS RESULT OUT OF RANGE REFERENCE UNITS LAB STYP(LOINC) SAMPLE TYPE VENOUS LAB TEMP(LOINC) BODY TEMP 37.0 37.0 C LAB PHV(LOINC) PH, VENOUS 7.258 Low 7.320-7.420 LAB PCO2V(LOINC) PCO2, VENOUS 54.7 High 35-50 MMHG LAB O2V([facility]) PO2, VENOUS 26 Low 30-50 MM[facility] LAB BZD([facility]) BASE,DEFICIT 4.0 High 0.0-2.0 MMOL/L LAB HCO3C(LOINC) HCO3 24.4 High 20.0-24.0 MMOL/L LAB SO2V([facility]) % O2 SAT 39.0 Low >80.0 % LAB ALN([facility]) YASHIRA'S TEST NA LAB SSIT([facility]) SAMPLE SITE [employer] LAB FIO2([facility]) INSP. O2 CONC. 21 % LAB OXY([facility]) OXYGEN SOURCE [employer] Performed By: #### VBG #### [facility] ([id number]) [address] [place] [address] CORD ARTERIAL GAS Collected: 7:39 PM Status: COMPLETED Source: [facility] TYPE CODE TESTS RESULT OUT OF RANGE REFERENCE UNITS LAB STYP([facility]) SAMPLE TYPE UMBILICALCORD LAB PHUA([facility]) pH 7.180 Low 7.24-7.30 LAB CO2UA([facility]) PCO2 74.1 High 40.8-57.6 MMHG LAB O2UA([facility]) PO2 8 Low 12-24 MM[facility] LAB BZD([facility]) BASE,DEFICIT 4.0 High 0.0-2.0 MMOL/L LAB HCO3([facility]) HCO3 27.7 High 22-26 MMOL/L LAB SO2UA([facility]) % O2 SAT 5.0 Low 7.1-39.5 % LAB ALN([facility]) YASHIRA'S TEST NA LAB SSIT([facility]) SAMPLE SITE [employer] LAB FIO2([facility]) INSP. O2 CONC. 21 % LAB OXY([facility]) OXYGEN SOURCE [employer] Performed By: #### CRDA #### [facility] ([id number]) [address] [place] [address] BEDSIDE GLUCOSE LAB Collected: 05/05/2024 6:05 PM Status: COMPLETED Source: [facility] TYPE CODE TESTS RESULT OUT OF RANGE REFERENCE UNITS LAB BEDG([facility]) BEDSIDE GLUCOSE LAB 95 65-99 mg/dL CBC AND AUTO DIFF Collected: 05/05/2024 5:08 PM Status: COMPLETED Source: [facility] TYPE CODE TESTS RESULT OUT OF RANGE REFERENCE UNITS LAB WBC(LOINC) WBC COUNT 15.5 High 4.0-11.0 X10E9/L LAB RBC(LOINC) RBC COUNT 4.16 3.80-5.20 X10E12/L LAB HGB(LOINC) HEMOGLOBIN 10.3 Low 11.7-15.5 g/dL LAB HCT(LOINC) HEMATOCRIT 32.1 Low 35-47 % LAB MCV(LOINC) MCV 77 Low 80-100 fL LAB MCH(LOINC) MCH 24.6 Low 27-34 pg LAB MCHC(LOINC) MCHC 32.0 32-36 g/dL LAB RDW(LOINC) RDW 16.9 High 11.5-15.0 % LAB PLTC(LOINC) PLATELET COUNT 277 150-450 X10E9 /L LAB MPV(LOINC) MPV 9.3 7-12 fL LAB NEUT(LOINC) % NEUTROPHILS 74.3 % LAB LYMP(LOINC) % LYMPHOCYTES 16.0 % LAB MONO(LOINC) % MONOCYTES 9.4 % LAB EOS(LOINC) % EOSINOPHILS 0.0 % LAB BASO(LOINC) % BASOPHILS 0.3 % LAB ANEUT(LOINC) ABSOLUTE NEUTROPHIL 11.5 High 1.5-6.6 X10E9/L LAB ALYMP(LOINC) ABSOLUTE LYMPHOCYTE 2.5 1.0-3.5 X10E9/L LAB AMONO(LOINC) ABSOLUTE MONOCYTE 1.5 High 0-0.9 X10E9/L LAB AEOS(LOINC) ABSOLUTE EOSINOPHIL 0.0 0.0-0.4 X10E9/L LAB ABASO(LOINC) ABSOLUTE BASOPHIL 0.0 0.0-0.2 X10E9/L Performed By: #### CMP, CBCA #### [facility] ([id number]) [address] [place] [address], [address] [place] [address] COMPREHENSIVE METABOLIC PANEL Collected: 2024 5:08 PM Status: COMPLETED Source: [facility] TYPE CODE TESTS RESULT OUT OF RANGE REFERENCE UNITS LAB NA(LOINC) SODIUM 137 134-146 mmol/L LAB K(LOINC) POTASSIUM 3.8 3.5-5.0 mmol/L LAB CL(LOINC) CHLORIDE 104 98-109 mmol/L LAB CO2(INC) CARBON DIOXIDE 21 Low 22-32 mmol/L LAB AGAP([facility]) ANION GAP 12 5-15 mmol/L LAB BUN(LOINC) BLOOD UREA NITROGEN 10 5-23 mg/dL LAB CRET(LOINC) CREATININE 0.66 0.40-1.00 mg/dL Result Comment: METHOD TRACE ABLE TO IDMS STANDARD LAB GLU([facility]) GLUCOSE 91 65-99 mg/dL LAB CA(LOINC) CALCIUM 7.4 Low 8.5-10.5 mg/dL LAB TP(INC) TOTAL PROTEIN 6.1 6.0-8.0 g/dL LAB ALB([facility]) ALBUMIN 3.3 3.2-5.3 g/dL LAB ALK([facility]) ALKALINE PHOSPHATASE 79 39-130 U/L LAB AST([facility]) AST 23 0-41 U/L LAB ALT1([facility]) ALT 17 0-31 U/L LAB TBIL([facility]) BILIRUBIN,TOTAL 0.5 0.3-1.2 mg/d L LAB EGFR([facility]) eGFR (CKD-EPI) NON-RACE DEPENDENT >90 >59 ml/min/1 .73sq.m Result Comment: Reported eGFR is based on the CKD-EPI 2020 equation that does not use a race coefficient. Performed By: #### CMP, CBCA #### [facility] ([id number]) [address] [place] [address], [address] [place] [address] BEDSIDE GLUCOSE LAB Collected: 05/05/2024 2:04 PM Status: COMPLETED Source: [facility] TYPE CODE TESTS RESULT OUT OF RANGE REFERENCE UNITS LAB BEDG([facility]) BEDSIDE GLUCOSE LAB 100 High 65-99 mg/dL BEDSIDE GLUCOSE LAB Collected: 05/05/2024 10:03 AM Status: COMPLETED Source: [facility] TYPE CODE TESTS RESULT OUT OF RANGE REFERENCE UNITS LAB BEDG([facility]) BEDSIDE GLUCOSE LAB 84 65-99 mg/dL BEDSIDE GLUCOSE LAB Collected: 05/05/2024 6:04 AM Status: COMPLETED Source: [facility] TYPE CODE TESTS RESULT OUT OF RANGE REFERENCE UNITS LAB BEDG([facility]) BEDSIDE GLUCOSE LAB 101 High 65-99 mg/dL CBC AND AUTO DIFF Collected: 05/05/2024 5:25 AM Status: COMPLETED Source: [facility] TYPE CODE TESTS RESULT OUT OF RANGE REFERENCE UNITS LAB WBC(LOINC) WBC COUNT 14.6 High 4.0-11.0 X10E9/L LAB RBC(LOINC) RBC COUNT 4.28 3.80-5.20 X10E12/L LAB HGB(LOINC) HEMOGLOBIN 10.7 Low 11.7-15.5 g/dL LAB HCT(LOINC) HEMATOCRIT 32.5 Low 35-47 % LAB MCV(LOINC) MCV 76 Low 80-100 fL LAB MCH(LOINC) MCH 25.0 Low 27-34 pg LAB MCHC(LOINC) MCHC 32.9 32-36 g/dL LAB RDW(LOINC) RDW 16.8 High 11.5-15.0 % LAB PLTC(LOINC) PLATELET COUNT 294 150-450 X10E9 /L LAB MPV(LOINC) MPV 9.6 7-12 fL LAB NEUT(LOINC) % NEUTROPHILS 72.2 % LAB LYMP(LOINC) % LYMPHOCYTES 17.2 % LAB MONO(LOINC) % MONOCYTES 10.3 % LAB EOS(LOINC) % EOSINOPHILS 0.1 % LAB BASO(LOINC) % BASOPHILS 0.2 % LAB ANEUT(LOINC) ABSOLUTE NEUTROPHIL 10.6 High 1.5-6.6 X10E9/L LAB ALYMP(LOINC) ABSOLUTE LYMPHOCYTE 2.5 1.0-3.5 X10E9/L LAB AMONO(LOINC) ABSOLUTE MONOCYTE 1.5 High 0-0.9 X10E9/L LAB AEOS(LOINC) ABSOLUTE EOSINOPHIL 0.0 0.0-0.4 X10E9/L LAB ABASO(LOINC) ABSOLUTE BASOPHIL 0.0 0.0-0.2 X10E9/L Performed By: #### CBCA, CMP , [id number] #### [facility] ([id number]) [address] [place] [address], [address] [place] [address] COMPREHENSIVE METABOLIC PANEL Collected: 2024 5:25 AM Status: COMPLETED Source: [facility] TYPE CODE TESTS RESULT OUT OF RANGE REFERENCE UNITS LAB NA(LOINC) SODIUM 135 134-146 mmol/L LAB K(LOINC) POTASSIUM 3.9 3.5-5.0 mmol/L LAB CL(LOINC) CHLORIDE 103 98-109 mmol/L LAB CO2(LOINC) CARBON DIOXIDE 21 Low 22-32 mmol/L LAB AGAP(LOINC) ANION GAP 11 5-15 mmol/L LAB BUN(LOINC) BLOOD UREA NITROGEN 11 5-23 mg/dL LAB CRET(LOINC) CREATININE 0.61 0.40-1.00 mg/dL Result Comment: METHOD TRACE ABLE TO IDMS STANDARD LAB GLU([facility]) GLUCOSE 90 65-99 mg/dL LAB CA(LOINC) CALCIUM 7.7 Low 8.5-10.5 mg/dL LAB TP(LOINC) TOTAL PROTEIN 6.4 6.0-8.0 g/dL LAB ALB(LOINC) ALBUMIN 3.5 3.2-5.3 g/dL LAB ALK(LOINC) ALKALINE PHOSPHATASE 80 39-130 U/L LAB AST(LOINC) AST 17 0-41 U/L LAB ALT1(LOINC) ALT 13 0-31 U/L LAB TBIL(LOINC) BILIRUBIN,TOTAL 0.4 0.3-1.2 mg/d L LAB EGFR(LOINC) eGFR (CKD-EPI) NON-RACE DEPENDENT >90 >59 ml/min/1 .73sq.m Result Comment: Reported eGFR is based on the CKD-EPI 2020 equation that does not use a race coefficient. Performed By: #### GUEVARA SAMAYOA , [id number] #### [facility] ([id number]) [address] [place] [address], [address] [id number] MAGNESIUM Collected: 05/05/2024 5:25 AM S tatus: COMPLETED Source: [facility] TYPE CODE TESTS RESULT OUT OF RANGE REFERENCE UNITS LAB MG(LOINC) MAGNESIUM 4.8 High 1.8-2.6 mg/dL Performed By: #### YAO CMP , 99493-0 #### [facility] ([id number]) [address] [place] [address], [address] [place] [address] BEDSIDE GLUCOSE LAB Collected: 05/05/2024 2:05 AM Status: COMPLETED Source: [facility] TYPE CODE TESTS RESULT OUT OF RANGE REFERENCE UNITS LAB BEDG(LOINC) BEDSIDE GLUCOSE LAB 114 High 65-99 mg/dL BEDSIDE GLUCOSE LAB Collected: 05/04/2024 10:10 PM Status: COMPLETED Source: [facility] TYPE CODE TESTS RESULT OUT OF RANGE REFERENCE UNITS LAB BEDG(LOINC) BEDSIDE GLUCOSE LAB 102 High 65-99 mg/dL CBC AND AUTO DIFF Collected: 05/04/2024 5:50 PM Stat us: COMPLETED Source: [facility] TYPE CODE TESTS RESULT OUT OF RANGE REFERENCE UNITS LAB WBC(LOINC) WBC COUNT 15.9 High 4.0-11.0 X10E9/L LAB RBC(LOINC) RBC COUNT 4.43 3.80-5.20 X10E12/L LAB HGB(LOINC) HEMOGLOBIN 10.8 Low 11.7-15.5 g/dL LAB HCT(LOINC) HEMATOCRIT 33.7 Low 35-47 % LAB MCV(LOINC) MCV 76 Low 80-100 fL LAB MCH(LOINC) MCH 24.3 Low 27-34 pg LAB MCHC(LOINC) MCHC 32.0 32-36 g/dL LAB RDW(LOINC) RDW 16.6 High 11.5-15.0 % LAB PLTC(LOINC) PLATELET COUNT 335 150-450 X10E9 /L LAB MPV(LOINC) MPV 9.5 7-12 fL LAB NEUTM(LOINC) SEG NEUTROPHIL 86.0 % LAB LYMM(LOINC) LYMPHOCYTE 9.0 % LAB MONOM(LOINC) MONOCYTE 4.0 % LAB LREAC(LOINC) LYMPHOCYTE, ATYPICAL 1.0 % LAB ANEUTM(LOINC) ABSOLUTE NEUTROPHILS 13.7 High 1.5-6.6 X10E9/L LAB ALYMM(LOINC) ABSOLUTE LYMPHOCYTE 1.6 1.0-3.5 X10E9/L LAB AMONOM(LOINC) ABSOLUTE MONOCYTES 0.6 0-0.9 X10E9/L LAB POLY(LOINC) POLYCHROMASIA 1+ Abnormal NONE LAB STOM(LOINC) STOMATOCYTE 1+ Abnormal NONE Performed By: #### CBCA, CMP #### [facility] ([id number]) [address] [place] [address], [address] [place] [address] COMPREHENSIVE METABOLIC PANEL Collected: 2024 5:50 PM Status: COMPLETED Source: [facility] TYPE CODE TESTS RESULT OUT OF RANGE REFERENCE UNITS LAB NA(LOINC) SODIUM 135 134-146 mmol/L LAB K(LOINC) POTASSIUM 4.1 3.5-5.0 mmol/L LAB CL(LOINC) CHLORIDE 104 98-109 mmol/L LAB CO2(LOINC) CARBON DIOXIDE 21 Low 22-32 mmol/L LAB AGAP(LOINC) ANION GAP 10 5-15 mmol/L LAB BUN(LOINC) BLOOD UREA NITROGEN 14 5-23 mg/dL LAB CRET(LOINC) CREATININE 0.71 0.40-1.00 mg/dL Result Comment: METHOD TRACE ABLE TO IDMS STANDARD LAB GLU(LOINC) GLUCOSE 92 65-99 mg/dL LAB CA(LOINC) CALCIUM 8.1 Low 8.5-10.5 mg/dL LAB TP(LOINC) TOTAL PROTEIN 6.4 6.0-8.0 g/dL LAB ALB(LOINC) ALBUMIN 3.4 3.2-5.3 g/dL LAB ALK(LOINC) ALKALINE PHOSPHATASE 77 39-130 U/L LAB AST(LOINC) AST 15 0-41 U/L LAB ALT1(LOINC) ALT 14 0-31 U/L LAB TBIL(LOINC) BILIRUBIN,TOTAL 0.3 0.3-1.2 mg/d L LAB EGFR(LOINC) eGFR (CKD-EPI) NON-RACE DEPENDENT >90 >59 ml/min/1 .73sq.m Result Comment: Reported eGFR is based on the CKD-EPI 2020 equation that does not use a race coefficient. Performed By: #### CBCA, CMP #### [facility] ([id number]) [address] [place] [address], [address] [place] [address] BEDSIDE GLUCOSE LAB Collected: 05/04/2024 5:43 PM Status: COMPLETED Source: [facility] TYPE CODE TESTS RESULT OUT OF RANGE REFERENCE UNITS LAB BEDG(LOINC) BEDSIDE GLUCOSE LAB 90 65-99 mg/dL BEDSIDE GLUCOSE LAB Collected: 05/04/2024 2:42 PM Status: COMPLETED Source: [facility] TYPE CODE TESTS RESULT OUT OF RANGE REFERENCE UNITS LAB BEDG(LOINC) BEDSIDE GLUCOSE LAB 136 High 65-99 mg/dL BEDSIDE GLUCOSE LAB Collected: 05/04/2024 10:08 AM Status: COMPLETED Source: [facility] TYPE CODE TESTS RESULT OUT OF RANGE REFERENCE UNITS LAB BEDG(LOINC) BEDSIDE GLUCOSE LAB 149 High 65-99 mg/dL BEDSIDE GLUCOSE LAB Collected: 05/04/2024 7:06 AM Status: COMPLETED Source: [facility] TYPE CODE TESTS RESULT OUT OF RANGE REFERENCE UNITS LAB BEDG(LOINC) BEDSIDE GLUCOSE LAB 126 High 65-99 mg/dL CBC AND AUTO DIFF Collected: 05/04/2024 6:02 AM Status: COMPLETED Source: [facility] TYPE CODE TESTS RESULT OUT OF RANGE REFERENCE UNITS LAB WBC(LOINC) WBC COUNT 12.5 High 4.0-11.0 X10E9/L LAB RBC(LOINC) RBC COUNT 4.29 3.80-5.20 X10E12/L LAB HGB(LOINC) HEMOGLOBIN 10.4 Low 11.7-15.5 g/dL LAB HCT(LOINC) HEMATOCRIT 32.5 Low 35-47 % LAB MCV(LOINC) MCV 76 Low 80-100 fL LAB MCH(LOINC) MCH 24.3 Low 27-34 pg LAB MCHC(LOINC) MCHC 32.1 32-36 g/dL LAB RDW(LOINC) RDW 16.7 High 11.5-15.0 % LAB PLTC(LOINC) PLATELET COUNT 301 150-450 X10E9 /L LAB MPV(LOINC) MPV 9.9 7-12 fL LAB NEUT(LOINC) % NEUTROPHILS 84.7 % LAB LYMP(LOINC) % LYMPHOCYTES 11.7 % LAB MONO(LOINC) % MONOCYTES 3.3 % LAB EOS(LOINC) % EOSINOPHILS 0.1 % LAB BASO(LOINC) % BASOPHILS 0.2 % LAB ANEUT(LOINC) ABSOLUTE NEUTROPHIL 10.6 High 1.5-6.6 X10E9/L LAB ALYMP(LOINC) ABSOLUTE LYMPHOCYTE 1.5 1.0-3.5 X10E9/L LAB AMONO(LOINC) ABSOLUTE MONOCYTE 0.4 0-0.9 X10E9/L LAB AEOS(LOINC) ABSOLUTE EOSINOPHIL 0.0 0.0-0.4 X10E9/L LAB ABASO(LOINC) ABSOLUTE BASOPHIL 0.0 0.0-0.2 X10E9/L Performed By: #### YAO, 253 2-0, GUEVARA, 3083-1 #### [facility] ([id number]) [address], [address] [place] [address] COMPREHENSIVE METABOLIC PANEL Collected: 2024 6:02 AM Status: COMPLETED Source: [facility] TYPE CODE TESTS RESULT OUT OF RANGE REFERENCE UNITS LAB NA(LOINC) SODIUM 136 134-146 mmol/L LAB K(LOINC) POTASSIUM 4.2 3.5-5.0 mmol/L LAB CL(LOINC) CHLORIDE 106 98-109 mmol/L LAB CO2(LOINC) CARBON DIOXIDE 20 Low 22-32 mmol/L LAB AGAP(LOINC) ANION GAP 10 5-15 mmol/L LAB BUN(LOINC) BLOOD UREA NITROGEN 11 5-23 mg/dL LAB CRET(LOINC) CREATININE 0.56 0.40-1.00 mg/dL Result Comment: METHOD TRACE ABLE TO IDMS STANDARD LAB GLU(LOINC) GLUCOSE 127 High 65-99 mg/dL LAB CA(LOINC) CALCIUM 7.6 Low 8.5-10.5 mg/dL LAB TP(LOINC) TOTAL PROTEIN 6.4 6.0-8.0 g/dL LAB ALB(LOINC) ALBUMIN 3.6 3.2-5.3 g/dL LAB ALK(LOINC) ALKALINE PHOSPHATASE 84 39-130 U/L LAB AST(LOINC) AST 15 0-41 U/L LAB ALT1(LOINC) ALT 12 0-31 U/L LAB TBIL(LOINC) BILIRUBIN,TOTAL 0.4 0.3-1.2 mg/d L LAB EGFR(LOINC) eGFR (CKD-EPI) NON-RACE DEPENDENT >90 >59 ml/min/1 .73sq.m Result Comment: Reported eGFR is based on the CKD-EPI 2020 equation that does not use a race coefficient. Performed By: #### YAO, 253 2-0, GUEVARA, 3083-1 #### [facility] ([id number]) [address] [place] [address], [address] [place] [address] LDH Collected: 05/04/2024 6:02 AM S tatus: COMPLETED Source: [facility] TYPE CODE TESTS RESULT OUT OF RANGE REFERENCE UNITS LAB LDH(LOINC) LDH 181 100-235 U/L Performed By: #### CBCA, 253 2-0, CMP, 3084-1 #### [facility] ([id number]) [address] [place] [address], [address] [address] URIC ACID Collected: 05/04/2024 6:02 AM S tatus: COMPLETED Source: [facility] TYPE CODE TESTS RESULT OUT OF RANGE REFERENCE UNITS LAB URIC([facility]) URIC ACID 11.0 High 2.6-7.2 mg/dL Performed By: #### CBCA, 253 2-0, CMP, 3084-1 #### [facility] ([id number]) [address] [place] [address], [address] [address] BEDSIDE GLUCOSE LAB Collected: 05/03/2024 7:05 PM Status: COMPLETED Source: [facility] TYPE CODE TESTS RESULT OUT OF RANGE REFERENCE UNITS LAB BEDG([facility]) BEDSIDE GLUCOSE LAB 105 High 65-99 mg/dL CBC AND AUTO DIFF Collected: 05/03/2024 6:08 PM Status: COMPLETED Source: [facility] TYPE CODE TESTS RESULT OUT OF RANGE REFERENCE UNITS LAB WBC(LOINC) WBC COUNT 14.0 High 4.0-11.0 X10E9/L LAB RBC(LOINC) RBC COUNT 4.41 3.80-5.20 X10E12/L LAB HGB(LOINC) HEMOGLOBIN 10.9 Low 11.7-15.5 g/dL LAB HCT(LOINC) HEMATOCRIT 33.6 Low 35-47 % LAB MCV(LOINC) MCV 76 Low 80-100 fL LAB MCH(LOINC) MCH 24.7 Low 27-34 pg LAB MCHC(LOINC) MCHC 32.5 32-36 g/dL LAB RDW(LOINC) RDW 16.7 High 11.5-15.0 % LAB PLTC(LOINC) PLATELET COUNT 275 150-450 X10E9 /L LAB MPV(LOINC) MPV 10.0 7-12 fL LAB NEUT(LOINC) % NEUTROPHILS 77.1 % LAB LYMP(LOINC) % LYMPHOCYTES 16.2 % LAB MONO(LOINC) % MONOCYTES 6.6 % LAB EOS(LOINC) % EOSINOPHILS 0.0 % LAB BASO(LOINC) % BASOPHILS 0.1 % LAB ANEUT(LOINC) ABSOLUTE NEUTROPHIL 10.8 High 1.5-6.6 X10E9/L LAB ALYMP(LOINC) ABSOLUTE LYMPHOCYTE 2.3 1.0-3.5 X10E9/L LAB AMONO(LOINC) ABSOLUTE MONOCYTE 0.9 0-0.9 X10E9/L LAB AEOS(LOINC) ABSOLUTE EOSINOPHIL 0.0 0.0-0.4 X10E9/L LAB ABASO(LOINC) ABSOLUTE BASOPHIL 0.0 0.0-0.2 X10E9/L Performed By: #### CMP, CBCA #### [facility] ([id number]) [address] [place] [address], [address] [place] [address] COMPREHENSIVE METABOLIC PANEL Collected: 2024 6:08 PM Status: COMPLETED Source: [facility] TYPE CODE TESTS RESULT OUT OF RANGE REFERENCE UNITS LAB NA(LOINC) SODIUM 133 Low 134-146 mmol/L LAB K(LOINC) POTASSIUM 4.2 3.5-5.0 mmol/L LAB CL(LOINC) CHLORIDE 103 98-109 mmol/L LAB CO2(LOINC) CARBON DIOXIDE 17 Low 22-32 mmol/L LAB AGAP(LOINC) ANION GAP 13 5-15 mmol/L LAB BUN(LOINC) BLOOD UREA NITROGEN 11 5-23 mg/dL LAB CRET(LOINC) CREATININE 0.60 0.40-1.00 mg/dL Result Comment: METHOD TRACE ABLE TO IDMS STANDARD LAB GLU(LOINC) GLUCOSE 123 High 65-99 mg/dL LAB CA(LOINC) CALCIUM 7.5 Low 8.5-10.5 mg/dL LAB TP(LOINC) TOTAL PROTEIN 6.4 6.0-8.0 g/dL LAB ALB(LOINC) ALBUMIN 3.5 3.2-5.3 g/dL LAB ALK(LOINC) ALKALINE PHOSPHATASE 78 39-130 U/L LAB AST(LOINC) AST 19 0-41 U/L LAB ALT1([facility]) ALT 13 0-31 U/L LAB TBIL([facility]) BILIRUBIN,TOTAL 0.4 0.3-1.2 mg/d L LAB EGFR(LOINC) eGFR (CKD-EPI) NON-RACE DEPENDENT >90 >59 ml/min/1 .73sq.m Result Comment: Reported eGFR is based on the CKD-EPI 2020 equation that does not use a race coefficient. Performed By: #### CMP, CBCA #### [facility] ([id number]) [address] [place] [address], [address] [place] [address] BEDSIDE GLUCOSE LAB Collected: 05/03/2024 3:27 PM Status: COMPLETED Source: [facility] TYPE CODE TESTS RESULT OUT OF RANGE REFERENCE UNITS LAB BEDG([facility]) BEDSIDE GLUCOSE LAB 91 65-99 mg/dL BEDSIDE GLUCOSE LAB Collected: 05/03/2024 11:07 AM Status: COMPLETED Source: [facility] TYPE CODE TESTS RESULT OUT OF RANGE REFERENCE UNITS LAB BEDG([facility]) BEDSIDE GLUCOSE LAB 98 65-99 mg/dL CHLAMYDIA/GC BY PCR Observed: 05/03/2024 8:13 AM Status: COMPLETED Source: [facility] SPECIMEN SOURCE CERVICAL SWAB CHLAMYDIA DNA(PCR) Negative (qualifier value) Chlamydia trachomatis not detected by nucleic acid amplification. This does not exclude the possibility of infection because results are dependent on adequate specimen collection. GONORRHOEAE DNA(PCR) Negative (qualifier value) Neisseria gonorrhoeae not detected by nucleic acid amplification. This does not exclude the possibility of infection because results are dependent on adequate specimen collection. Performed By: #### CGS #### [facility] ([id number]) [address] [place] [address], [address] [place] [address] VAGINITIS PANEL PCR Observed: 05/03/2024 8:13 AM Status: COMPLETED Source: [facility] BACT. VAGINOSIS DNA Not detected (qualifier value) Qualitative results are reported based on detection and quantitation of targeted organism markers which include: Lactobacillus spp. (L. crispatus and L. jensenii), Gardnerella vaginalis, Atopobium vaginae, Bacterial Vaginosis Associated Bacteria-2 (BVAB-2) and Megasphaera-1 DANNIELLE SPECIES DNA Not detected (qualifier value) Dannielle species not detected include: C. albicans, C. tropicalis, C. parapsilosis or C. dubliniensis DANNIELLE KRUSEI DNA Not detected (qualifier value) No Dannielle krusei detected DANNIELLE GLABRATA DNA Not detected (qualifier value) No Dannielle glabrata detected TRICHOMONAS VAG DNA Not detected (qualifier value) No Trichomonas vaginalis detected NOTE BD MAX Vaginal Panel has not been evaluated for patients under 18 years old. Results for these patients should be reviewed and assessed in accordance with clinical presentation to determine patient diagnosis. Performed By: #### VPPCR ### # [facility] ([id number]) [address] [place] [address], [address] [place] [address] STREP B SCREEN CULTURE Observed: 025 8:13 AM Status: COMPLETED Source: [facility] CULTURE RESULTS NEGATIVE FOR GROUP B STREPTOCOCCUS BY NUCLEIC ACID AMPLIFICATION Performed By: #### 33608-7 # ### [facility] ([id number]) [address] [place] [address], [address] [place] [address] BEDSIDE GLUCOSE LAB Collected: 05/03/2024 7:10 AM Status: COMPLETED Source: [facility] TYPE CODE TESTS RESULT OUT OF RANGE REFERENCE UNITS LAB BEDG(LOINC) BEDSIDE GLUCOSE LAB 120 High 65-99 mg/dL URINALYSIS Collected: 5:40 AM Status: COMPLETED Source: [facility] TYPE CODE TESTS RESULT OUT OF RANGE REFERENCE UNITS LAB COLP(LOINC) COLOR YELLOW YELLOW LAB TURB(LOINC) TURBIDITY CLEAR CLEAR LAB SPGR(LOINC) SPECIFIC GRAVITY 1.018 1.003-1.035 LAB NITR(LOINC) NITRITE Negative (qualifier value) NEG LAB PHUR(LOINC) PH,URINE 5.5 5.0-8.5 LAB LEST(LOINC) LEUKOCYTE ESTERASE Negative (qualifier value) NEG LAB PRU(LOINC) PROTEIN 50 Abnormal NEG mg/dL LAB GLUR(LOINC) GLUCOSE (URINE) Negative (qualifier value) NEG mg/dL LAB KET(LOINC) KETONES (URINE) Negative (qualifier value) NEG mg/dL LAB UROB(LOINC) UROBILINOGEN <1.1 <1.1 eu/dL LAB BILEU(LOINC) BILIRUBIN (URINE) Negative (qualifier value) NEG LAB BLUR(LOINC) BLOOD/HGB MODERATE Abnormal NEG LAB MUCU(LOINC) MUCOUS PRESENT Abnormal NONE LAB RBCU(LOINC) R.B.CELLS 30 High 0-5 /hpf LAB SEP(LOINC) SQUAMOUS EPITHELIUM 1 0-5 /hpf LAB HYLC(LOINC) HYALINE CASTS 1 0-2 /lpf LAB WBCU(LOINC) W.B.CELLS 3 0-5 /hpf LAB UMCR(LOINC) MICROSCOPIC (UR) URINE RECEIVED WITHOUT PRESERVATIVE-D ELAYS IN TRANSPORT MAY AFFECT RESULTS.INTERP RET WITH CAUTION AND CLINICAL CORRELATION IS RECOMMENDED. Performed By: #### UA #### [facility] ([id number]) [address] [place] [address], [address] [place] [address] DRUG SCREEN, URINE Collected: 05/03/2024 5:40 AM Sta tus: COMPLETED Source: [facility] TYPE CODE TESTS RESULT OUT OF RANGE REFERENCE UNITS LAB AMPH(LOINC) AMPHETAMINE/METH AM P Negative (qualifier value) NEG Result Comment: AMPH/METH sc reening cut off = 1000 ng/mL LAB DEANNA(LOINC) BARBITURATES Negative (qualifier value) NEG Result Comment: Barbiturates screening cut off value = 200 ng/mL LAB BENZO(LOINC) BENZODIAZEPINES Negative (qualifier value) NEG Result Comment: Benzodiazepi david screening cut off value = 200 ng/mL LAB THC(LOINC) CANNABINOIDS Negative (qualifier value) NEG Result Comment: Cannabinoids /THC screening cut off value = 50 ng/mL LAB COKE(LOINC) COCAINE METABOLITE Negative (qualifier value) NEG Result Comment: Cocaine scre ening cut off value = 300 ng/mL LAB OPIAT(LOINC) OPIATES Negative (qualifier value) NEG Result Comment: Opiates scre ening cut off value = 300 ng/mL NOTE: This test is used for the detection of codeine, hydrocodone (>1000 ng/mL), morphine and hydromorphone (>900 ng/mL) in urine. LAB PCP(LOINC) PHENCYCLIDINE Negative (qualifier value) NEG Result Comment: Phencyclidin e screening cut off value = 25 ng/mL LAB OXYX(LOINC) OXYCODONE Negative (qualifier value) NEG Result Comment: Oxycodone sc reening cut off value = 300 ng/mL NOTE: This test is used for the detection of oxycodone and oxymorphone in urine. LAB METH(LOINC) METHADONE Negative (qualifier value) NEG Result Comment: Methadone sc reening cut off value = 300 ng/mL. LAB MDMA(LOINC) ECSTASY Negative (qualifier value) NEG Result Comment: Ecstasy scre ening cut off value = 500 ng/mL This report is intended for use in clinical monitoring or management of patients. Performed By: #### DSU #### [facility] ([id number]) [address] [place] [address], [address] [place] [address] URINE CULTURE Observed: 05/03/2024 5:40 AM Status: COMPLETED Source: [facility] SPECIMEN NOTES URINE RECEIVED WITHOUT PRESERVATIVE CULTURE RESULTS NO GROWTH AT <1000 CFU/mL Performed By: #### 630-4 ### # [facility] ([id number]) [address] [place] [address], [facility] [address] [place] [address] CBC AND AUTO DIFF Collected: 05/03/2024 5:36 AM Status: COMPLETED Source: [facility] TYPE CODE TESTS RESULT OUT OF RANGE REFERENCE UNITS LAB WBC(LOINC) WBC COUNT 13.7 High 4.0-11.0 X10E9/L LAB RBC(LOINC) RBC COUNT 4.59 3.80-5.20 X10E12/L LAB HGB(LOINC) HEMOGLOBIN 11.5 Low 11.7-15.5 g/dL LAB HCT(LOINC) HEMATOCRIT 34.7 Low 35-47 % LAB MCV(LOINC) MCV 76 Low 80-100 fL LAB MCH(LOINC) MCH 25.0 Low 27-34 pg LAB MCHC(LOINC) MCHC 33.0 32-36 g/dL LAB RDW(LOINC) RDW 16.5 High 11.5-15.0 % LAB PLTC(LOINC) PLATELET COUNT 285 150-450 X10E9 /L LAB MPV(LOINC) MPV 9.5 7-12 fL LAB NEUT(LOINC) % NEUTROPHILS 87.2 % LAB LYMP(LOINC) % LYMPHOCYTES 10.7 % LAB MONO(LOINC) % MONOCYTES 1.9 % LAB EOS(LOINC) % EOSINOPHILS 0.0 % LAB BASO(LOINC) % BASOPHILS 0.2 % LAB ANEUT(LOINC) ABSOLUTE NEUTROPHIL 12.0 High 1.5-6.6 X10E9/L LAB ALYMP(LOINC) ABSOLUTE LYMPHOCYTE 1.5 1.0-3.5 X10E9/L LAB AMONO(LOINC) ABSOLUTE MONOCYTE 0.3 0-0.9 X10E9/L LAB AEOS(LOINC) ABSOLUTE EOSINOPHIL 0.0 0.0-0.4 X10E9/L LAB ABASO(LOINC) ABSOLUTE BASOPHIL 0.0 0.0-0.2 X10E9/L Performed By: #### 2532-0, C BCA, 65259-3, 3084-1, CMP #### [facility] ([id number]) [address] [place] [address], [address] [place] [address] COMPREHENSIVE METABOLIC PANEL Collected: 2024 5:36 AM Status: COMPLETED Source: [facility] TYPE CODE TESTS RESULT OUT OF RANGE REFERENCE UNITS LAB NA(LOINC) SODIUM 135 134-146 mmol/L LAB K(LOINC) POTASSIUM 4.5 3.5-5.0 mmol/L LAB CL(LOINC) CHLORIDE 105 98-109 mmol/L LAB CO2(LOINC) CARBON DIOXIDE 19 Low 22-32 mmol/L LAB AGAP(LOINC) ANION GAP 11 5-15 mmol/L LAB BUN(LOINC) BLOOD UREA NITROGEN 14 5-23 mg/dL LAB CRET(LOINC) CREATININE 0.57 0.40-1.00 mg/dL Result Comment: METHOD TRACE ABLE TO IDMS STANDARD LAB GLU(LOINC) GLUCOSE 129 High 65-99 mg/dL LAB CA(LOINC) CALCIUM 8.4 Low 8.5-10.5 mg/dL LAB TP(LOINC) TOTAL PROTEIN 6.7 6.0-8.0 g/dL LAB ALB(LOINC) ALBUMIN 3.5 3.2-5.3 g/dL LAB ALK(LOINC) ALKALINE PHOSPHATASE 89 39-130 U/L LAB AST(LOINC) AST 22 0-41 U/L LAB ALT1(LOINC) ALT 14 0-31 U/L LAB TBIL(LOINC) BILIRUBIN,TOTAL 0.4 0.3-1.2 mg/d L LAB EGFR(LOINC) eGFR (CKD-EPI) NON-RACE DEPENDENT >90 >59 ml/min/1 .73sq.m Result Comment: Reported eGFR is based on the CKD-EPI 2020 equation that does not use a race coefficient. Performed By: #### 2532-0, C BCA, 50367-0, 3084-1, CMP #### [facility] ([id number]) [address] [place] [address], [address] [address] LDH Collected: 05/03/2024 5:36 AM S tatus: COMPLETED Source: [facility] TYPE CODE TESTS RESULT OUT OF RANGE REFERENCE UNITS LAB LDH(INC) LDH 204 100-235 U/L Performed By: #### 2532-0, C BCA, 93323-6, 3084-1, CMP #### [facility] ([id number]) [address] [place] [address], [address] [address] URIC ACID Collected: 05/03/2024 5:36 AM S tatus: COMPLETED Source: [facility] TYPE CODE TESTS RESULT OUT OF RANGE REFERENCE UNITS LAB URIC(INC) URIC ACID 9.0 High 2.6-7.2 mg/dL Performed By: #### 2532-0, C BCA, 22571-5, 3084-1, CMP #### [facility] ([id number]) [address] [place] [address], [address] [address] SYPHILIS TOTAL Collected: 05/03/2024 5:36 AM S tatus: COMPLETED Source: [facility] TYPE CODE TESTS RESULT OUT OF RANGE REFERENCE UNITS LAB SYPHT(LOINC) Syphilis Total <0.2 0.0-0.8 AI Result Comment: NON REACTIVE No serologic evidence of infection to Treponema pallidum (syphilis). Repeat testing may be considered in patients with suspected acute or primary syphilis in 2 to 4 weeks. Performed By: #### 2532-0, C BCA, 36597-5, 3084-1, CMP #### [facility] ([id number]) [address], [address] [place] [address] URINE VOLUME AND TIME Collected: 05/02/2024 8:0 0 PM Status: COMPLETED Source: [facility] TYPE CODE TESTS RESULT OUT OF RANGE REFERENCE UNITS LAB TIME(LOINC) TIME 24 h LAB TV(LOINC) TOTAL VOLUME 4500 mL 24 HR URINE TOTAL PROTEIN Collected: 05/02/2024 8:00 AM Status: COMPLETED Source: [facility] TYPE CODE TESTS RESULT OUT OF RANGE REFERENCE UNITS LAB [facility](LOINC) URINE TOTAL PROTEIN 1215 High 0-150 mg/24h Performed By: #### UPRO, [place] #### [facility] ([id number]) [address], [address] [place] [address] URINE VOLUME AND TIME Collected: 05/02/2024 8:0 0 AM Status: COMPLETED Source: [facility] TYPE CODE TESTS RESULT OUT OF RANGE REFERENCE UNITS LAB TIME(LOINC) TIME 24 h LAB TV(LOINC) TOTAL VOLUME 4500 mL Performed By: #### UPRO, [place] #### [facility] ([id number]) [address], [address] [place] [address] US OB FOLLOW UP TRANSABDOMINAL APPROACH Observed: 04/09/2024 10:16 AM Status: F Source: [facility] EPIC Order Comment: US OB SCAN FO R GROWTH Estimated Date of Delivery: 06/09/24 Gestational Age as of 03/19/2024: 30w6d TITLE OF EXAM: OB Ultrasound : REASON FOR EXAM: GDM. COMPARISON: None TECHNIQUE: Grayscale and M-mode Doppler imaging is performed. FINDINGS: Measurements: heart rate: 162 bpm PAU: 16.0 cm (8.7-23.9) BPD: 7.9 cm HC: 29.6 cm AC: 31.0 cm FL: 6.0 cm GA for sonogram: 32.0 wk (29.6-34.4) [place] MARIELLA: 06/09/2024 Weight Estimate: Weight: 2177 cm / 4 lbs, 12 oz (9724-5727 gm) [place] Normal: 1812 gm (0553-4932 gm) [place] Wt%: >97% for 31.3 wks [...] signed and approved by the interpreting radiologist. ALLERGIES DATE TYPE / CODE NAME / CODE REACTION SEVERITY SOURCE Drug Class/[id number]([facility]) NO KNOWN ALLERGIES [facility] ENCOUNTERS ADMIT/DISCHARGE ACCOUNT NUMBER ADMITTING ENCOUNTER CLASS LOCATION SOURCE 12/28/2024/12/29/19 [id number] Ambulatory Building:NO MS BCP OB [facility] 11/24/2024/11/25/19 25 [id number] Ambulatory Building:NO MS SWSDERM [facility] EPIC 10/23/2024/10/24/19 25 [id number] Ambulatory Building:[facility] 10/16/2024/10/17/19 25 [id number] Ambulatory Building:[facility] 06/16/2024/06/17/19 25 [id number] Ambulatory Building:NO MS BCP OB [facility] 06/08/2024/06/09/19 25 [id number] Ambulatory Building:NO MS BCP OB [facility] EPIC 06/01/2024/06/02/19 25 [id number] Ambulatory Building:NO MS BCP OB [facility] 05/12/2024/05/12/19 25 [id number] Ambulatory Building:NO MS BCP OB [facility] EPIC 05/10/2024/05/10/19 25 [id number] Inpatient Encounter Building:PT H_LABR [facility] 05/10/2024/05/10/19 25 [id number] Inpatient Encounter Building:PT H_LABR [facility] 05/07/2024/05/07/19 25 [id number] Ambulatory Building:PT H_MOBICU [facility] 05/04/2024/05/04/19 25 [id number] Inpatient Encounter Building:PT H_KYLAH [facility] 05/03/2024/05/10/19 25 [id number] NAYA MCKEON Inpatient Encounter Building:PT H_G4PPRoom: [id number]: [id number] [facility] 04/23/2024/04/23/19 [id number] Ambulatory Building:NO MS BCP OB [facility] EPIC 04/09/2024/04/09/19 25 [id number] Ambulatory Building:NO MS BCP OB [facility] EPIC 04/09/2024/04/09/19 25 [id number] Ambulatory Building:NO MS BCP OB [facility] EPIC 03/19/2024/03/19/20 24 [id number] Ambulatory Building:NO MS BCP OB [facility] Specialists EPIC 02/20/2024/02/20/20 24 [id number] Ambulatory Building:NO MS BCP OB [facility] EPIC 01/23/2024/01/23/20 24 [id number] Ambulatory Building:NO MS BCP OB [facility] EPIC PAYERS ENCOUNTER GUARANTOR PAYER SUBSCRIBER SOURCE 12/28/2024 DOREEN SALGADOB: [place], [place] [address]Ern: () Primary Insurance:SHADE powers Number: [id number] tive Date:2022-04-01[address]CFXMQDNLCMARC[address] REDD [address]PB: DOREEN MARQUEZDOB: [id number] [place] [address] [facility] 11/24/2024 DOREEN SALGADOB: [place], [place] [address]Cni: (UX) Primary Insurance:SHADE powers Number: [id number] tive Date:2022-04-01 [address]YAWCRQIRHIMARC[address] REDD [address]LD: DOREEN THOMPSONDOB: [id number] [place] [address] [facility] Medical [facility] [address] 10/23/2024 DOREEN THOMPSONDOB: [place] [address] Primary Insurance:[facility] Number: [id number] tive Date:2022-04-01 [address]LGYCGFWYNN [place], [place] [address]XO: DOREEN THOMPSONDOB: [id number] [place] [address] [facility] 10/16/2024 DOREEN THOMPSONDOB: [place] [address]Wzb: (HP) Primary Insurance:[facility] Number: [id number] tive Date:2022-04-01 [address]QXFFNDEVRT A, [place] [address]TL: DOREEN THOMPSONDOB: [id number] [place], [place] [address]Jqg: (HP) [facility] 06/16/2024 DOREEN THOMPSONDOB: [place] [address]Huw: (HP) Primary Insurance:[facility] Number: [id number] tive Date:2022-04-01 [address]QGNVKMPMSM [place] [address]DF: DOREEN THOMPSONDOB: [id number] [place] [address] [facility] Medical [facility] [address] 06/08/2024 DOREEN THOMPSONDOB: [place] [address]Ozw: (HP) [facility] Number: [id number] tive Date:2022-04-01 [address]RBINMJWJFX [place] [address]AC: DOREEN THOMPSONDOB: [id number] [place] [address] [facility] 06/01/2024 DOREEN THOMPSONDOB: [place] [address]Ino: (HP) Primary Insurance:CIG[employer] olicy Number: [id number] tive Date:2022-04-01 [address]LMDQK[place] [address]YT: DOREEN THOMPSONDOB: [id number] [place] [address] [facility] 05/12/2024 DOREEN THOMPSONDOB: [place] [address]Klk: (HP) Primary Insurance:CIGNA olicy Number: [id number] tive Date:2022-04-01 [address]JDAFSQFT[place] [address]TS: DOREEN THOMPSONDOB: [id number] [place] [address] [facility] 05/10/2024 DOREEN Greenwood THOMPSONDOB: [place] [address]Oqp: (HP) Primary Insurance:CIGNA kevinicy Number: [id number] tive Date:2022-04-01 DOREEN Greenwood THOMPSONDOB: [id number] [place], [place] [address]Ovy: (HP) [facility] 05/10/2024 DOREEN Greenwood THOMPSONDOB: [place] [address]Xce: (HP) Primary Insurance:CIGNAP olicy Number: [id number] tive Date:2022-04-01 DOREEN Greenwood THOMPSONDOB: [id number] [place], [place] [address]Pzk: (HP) [facility] 05/07/2024 DOREEN Greenwood THOMPSONDOB: [place] [address]Dra: (HP) Primary Insurance:[facility] Number: [id number] tive Date:2022-04-01 DOREEN Greenwood THOMPSONDOB: [id number] [place], [place] [address]Amf: (HP) [facility] 05/04/2024 DOREEN Greenwood THOMPSONDOB: [place] [address]Yze: (HP) Primary Insurance:[facility] kang Number: [id number] tive Date:2022-04-01 DOREEN Timo THOMPSONDOB: [id number] [place], [place] [address]Kyw: (HP) [facility] 05/03/2024 DOREEN Greenwood THOMPSONDOB: [place] [address]Ndq: (HP) Primary Insurance:[facility] Number: [id number] tive Date:2022-04-01 DOREEN Timo THOMPSONDOB: [id number] [place], [place] [address]Txu: (HP) [facility] 04/23/2024 DOREEN THOMPSONDOB: [place] [address]Fam: (HP) Primary Insurance:[facility] kang Number: [id number] tive Date:2022-04-01P Dane GRIFFITHS [id number] [place] [address]MS: DOREEN THOMPSONDOB: [id number] [place] [address] [facility] 04/09/2024 DOREEN THOMPSONDOB: [place] [address]Ovw: (HP) Primary Insurance:TAR[employer] olicy Number: [id number] tive Date:2022-04-01 [address]HGTJJBFZQ[place] [address]HX: DOREEN THOMPSONDOB: [id number] [place] [address] [facility] EPIC 04/09/2024 DOREEN THOMPSONDOB: [place] [address]Wnk: (HP) Primary Insurance:CIGNAP olicy Number: [id number] tive Date:2022-04-01 [address]MCEMUZECSA [place] [address]EH: DOREEN THOMPSONDOB: [id number] [place], [facility] 03/19/2024 DOREEN THOMPSONDOB: [place] [address]Rvj: (HP) Primary Insurance:CIGNAP olicy Number: [id number] tive Date:2022-04-01 [address]EJTRANUFZZ [place] [address]HJ: DOREEN THOMPSONDOB: [id number] [place] [address] [facility] 02/20/2024 DOREEN THOMPSONDOB: [place] [address]Ihx: (HP) Primary Insurance:CIGNAP olicy Number: [id number] tive Date:2022-04-01 [address]DNBXYDNDPV [place] [address]WL: DOREEN THOMPSONDOB: [id number] [place] [address] [facility] EPIC 01/23/2024 DOREEN THOMPSONDOB: [place], [place] [address]Prg: () Primary Insurance:SHADE kapadia Number: [id number] tive Date:2022-04-01P Dane GRIFFITHS [id number] [place] [address]TI: DOREEN MARQUEZDOB: [id number] [place] [address] [facility] Specialists EPIC
--- OUTSIDE RECORDS SUMMARY | 2024-12-28 13:00 | XMS_ITS | Encounter Summary ---
Author Organization [facility] Address [address] [facility] [place] [address] Care Team Providers Care Returned Case Inspector Name Role Phone Unavailable Primary Care Provider Unavailabl e Reason for Visit * Reason Comments Well Women Visit Encounter Details Date Type Department Care Team ([facility] Contact Info) Description 12/28/2024 1:00 PM EDT Office Visit [facility] [address] [place] [address] Marlyn Jackson NP [address] [place] [address] Well woman exam with routine gynecological exam Social History Tobacco Use Types Packs/Day Years Used Date Smoking Tobacco: Never Assessed Comments Unknown Sex and Gender Information Value Date Recorded Sex Assigned at Female 12/11/2022 8:38 AM EDT Legal Sex Female 11:47 PM EDT Gender Identity Female 12/11/2022 8:38 AM EDT Sexual Orientation Straight 12/11/2022 8: 38 AM EDT documented as of this encounter Last Filed Vital Signs Vital Sign Reading Time Taken Comments Blood Pressure 120/80 12/28/2024 12:56 PM EDT Pulse - - Temperature - - Respiratory Rate - - Oxygen Saturation - - Inhaled Oxygen Concentration - - Weight 145 kg (320 lb 1.9 oz) 12/28/2024 12:56 P M EDT Height - - Body Mass Index 47.27 01/01/2023 2:38 PM EDT documented in this encounter Progress Notes * Marlyn Jackson NP - 12/28/2024 1:00 PM EDT Reason for Appointment: Patient ID: Yu Vallecillo is a 29 y.o. female who presents for Well Women Visit Patient presents today for Annual Exam. MEDICATIONS Current Outpatient Medications Medication Instructions fluocinonide (Lidex) 0.05 % external solution Apply to affected areas on the scalp, up to twice a day when flared, 30 day supply ketoconazole (NIZOral) 2 % shampoo Lather on scalp, leave on 5 min before rinsing, 2-3 times a week, 30 day supply ALLERGIES No Known Allergies PROBLEMS Active Ambulatory [...] nursing note reviewed. Exam conducted with a steam shovel engineer present. Vitals: Estimated body mass index is 47.27 kg/m?? as calculated from the following: Height as of 01/01/23: 5' 9 . Weight as of this encounter: 320 lb 1.9 oz. BP: 120/80 Patient's last menstrual period was 12/16/2024. ASSESSMENT & PLAN ICD-10-CM 1. Well woman exam with routine gynecological exam Z01.419 Pap Smear Annual Exam: Patient presents today for an annual exam. Patient states she is doing well and has no complaints. Pap was obtained without difficulty. Follow Up: Patient is to return in one year for annual unless needed otherwise. Documented by Amy Barrios LPN on behalf of: Marlyn Jackson NP documented in this encounter Plan of Treatment Upcoming Encounters Date Type Department Care Team (Late st Contact Info) Description 11/25/2025 10:05 AM EDT Office Visit [facility] [address] [place] [address] Mirian Fairbanks APRN-VISUAL COORDINATOR [address] [place] [address] 12/30/2025 10:00 AM EDT Procedure Visit [facility] [address] [place] [phone] Jacob Stacy DO [address] [place] [address] Scheduled Orders Name Type Priority Associated Diagnoses Orde r Schedule Pap Smear Pathology and Cytology Routine Well woman exam with routine gynecological exam Ordered: 12/28/2024 documented as of this encounter Goals Goal Patient Goal Type Associated Problems Recent Progress Patient-Stated? Author Reminders Care Plan OB Reminders No Open Scheduling, Background documented as of this encounter Visit Diagnoses Diagnosis Well woman exam with routine gynecological exam Routine gynecological examination documented in this encounter Additional Health Concerns Active Problems Noted Date Diagnosed Date OB Reminders 12/26/2023 documented as of this encounter
--- OUTSIDE RECORDS SUMMARY | 2024-12-28 20:17 | XMS_ITS | Encounter Summary ---
Author Organization [facility] Address [address] [place] [address] Care Team Providers Care Security Program Manager Name Role Phone Unavailable Primary Care Provider Unavailabl e Encounter Details Date Type Department Care Team (Late Contact Info) Description 01/02/2024 Orders Only EREN TATUM [address] [place] [address] Amy Barrios LPN [address] [facility] [place] [address] Social History Tobacco Use Types Packs/Day Years Used Date Smoking Tobacco: Never Assessed Comments Yes Sex and Gender Information Value Date Recorded Sex Assigned at Female 12/11/2022 8:38 AM EDT Legal Sex Female 11:47 PM EDT Gender Identity Female 12/11/2022 8:38 AM EDT Sexual Orientation Straight 12/11/2022 8: 38 AM EDT documented as of this encounter Plan of Treatment Upcoming Encounters Date Type Department Care Team (Late Contact Info) Description 11/25/2025 10:05 AM EDT Office Visit [facility] [address] [place] [address] Mirian Fairbanks, CHEESE WEIGHER-SPOOL CLEANER [address] [place] [address] 12/30/2025 10:00 AM EDT Procedure Visit [facility] [address] [place] [address] Jacob Stacy DO [address] [facility] [place] [address] documented as of this encounter Goals Goal Patient Goal Type Associated Problems Recent Progress Patient-Stated? Author Reminders Care Plan OB Reminders No Open Scheduling, Background documented as of this encounter Procedures Procedure Name Priority Date/Time Associated Diagnosis Comments PAP SMEAR Routine 12/26/2023 12:00 AM EDT documented in this encounter Results * Pap Smear (12/26/2023 12:00 AM EDT) Swab Cervical swab / Unknown us Reg[facility] Nurse [facility] LAB CYTOLOGY ORDERABLES Final Result EXTERNAL LAB documented in this encounter Visit Diagnoses Not on filedocumented in this encounter Additional Health Concerns Active Problems Noted Date Diagnosed Date OB Reminders 12/26/2023 documented as of this encounter
--- OUTSIDE RECORDS SUMMARY | 2024-12-28 20:17 | XMS_ITS | Encounter Summary ---
Author Organization [facility] Address [address] [place] [address] Care Team Providers Care Oil Well Service Unit Operator Name Role Phone Unavailable Primary Care Provider Unavailabl e Encounter Details Date Type Department Care Team (Late Contact Info) Description 03/02/2024 Abstract [facility] [address] [facility] [facility] [address] Suzanne Angela LPN Social History Tobacco Use Types Packs/Day Years [...] Office Visit [facility] [address] [facility] [address] [facility] [address] [place] [address] Mirian Fairbanks, SLURRY CONTROL TENDER-TITLE INVESTIGATOR [address] [place] [address] 12/30/2025 10:00 AM EDT Procedure Visit EREN TATUM [address] [facility] [address] Jacob Stacy DO [address] [place] [address] documented as of this encounter Goals Goal Patient Goal Type Associated Problems Recent Progress Patient-Stated? Author Reminders Care Plan OB Reminders No Open Scheduling, Background documented as of this encounter Visit Diagnoses Not on filedocumented in this encounter Additional Health Concerns Active Problems Noted Date Diagnosed Date OB Reminders 12/26/2023 documented as of this encounter
--- OUTSIDE RECORDS SUMMARY | 2024-12-28 20:17 | XMS_ITS | Encounter Summary ---
Author Organization [facility] Address [address] [place] [address] Care Team Providers Care Clinical Social Work Aide Name Role Phone Unavailable Primary Care Provider Unavailabl e Encounter Details Date Type Department Care Team (Late Contact Info) Description 12/03/2023 Abstract [facility] [place] [address] Jacob Stacy, DO [address] [place] [address] Anjelica Pring[place], [facility]11 Social History Tobacco Use Types Packs/Day Years [...] [address] [place] [phone] Mirian Fairbanks, SANDBLASTING SUPERVISOR-ENROLLMENT PROCESSOR [address] [place] [address] 12/30/2025 10:00 AM EDT Procedure Visit EREN TATUM [address] [place] [address] Jacob Stacy, DO [address] [place] [address] documented as of this encounter Visit Diagnoses Not on filedocumented in this encounter
--- OUTSIDE RECORDS SUMMARY | 2024-12-28 20:17 | XMS_ITS | Encounter Summary ---
Author Organization [facility] Address [address] [place] [address] Care Team Providers Care Press Operator Apprentice Name Role Phone Unavailable Primary Care Provider Unavailabl e Encounter Details Date Type Department Care Team (Late Contact Info) Description 01/02/2024 Abstract [facility] [place] [address] Jacob Stacy, DO [address] [place] [address] Anjelica [place], [facility]11 Social History Tobacco Use Types Packs/Day Years [...] [address] [place] [phone] Mirian Fairbanks, OUTSIDE MACHINIST HELPER-[employer]ER [employer] [address] [place] [address] 12/30/2025 10:00 AM EDT Procedure Visit EREN TATUM [address] [place] [address] Jacob Stacy, DO [address] [place] [address] documented as of this encounter Goals Goal Patient Goal Type Associated Problems Recent Progress Patient-Stated? Author Reminders Care Plan OB Reminders No Open Scheduling, Background documented as of this encounter Visit Diagnoses Not on filedocumented in this encounter Additional Health Concerns Active Problems Noted Date Diagnosed Date OB Reminders 12/26/2023 documented as of this encounter
--- OUTSIDE RECORDS SUMMARY | 2024-12-28 20:17 | XMS_ITS | Encounter Summary ---
Author Organization [facility] Address [address] [place] [address] Care Team Providers Care Mechanical Oxidizer Name Role Phone Unavailable Primary Care Provider Unavailabl e Encounter Details Date Type Department Care Team (Late Contact Info) Description 05/05/2024 Abstract [facility] [place] [address] Jacob Stacy, DO [address] [place] [place], [facility]11 Social History Tobacco Use Types Packs/Day Years [...] [address] [place] [phone] Mirian Fairbanks, CHILD CARE COORDINATOR-OCCASIONAL BABYSITTER [address] [place] [address] 12/30/2025 10:00 AM EDT Procedure Visit EREN TATUM [address] [place] [address] Jacob Stacy, DO [address] [place] [address] documented as of this encounter Goals Goal Patient Goal Type Associated Problems Recent Progress Patient-Stated? Author Reminders Care Plan OB Reminders No Open Scheduling, Background documented as of this encounter Visit Diagnoses Not on filedocumented in this encounter Additional Health Concerns Active Problems Noted Date Diagnosed Date OB Reminders 12/26/2023 documented as of this encounter
--- OUTSIDE RECORDS SUMMARY | 2024-12-28 20:17 | XMS_ITS | Encounter Summary ---
Author Organization [facility] Address [address] [place] [address] Care Team Providers Care Screw Machine Tool Setter Name Role Phone Unavailable Primary Care Provider Unavailabl e Encounter Details Date Type Department Care Team (Late Contact Info) Description 12/26/2023 Abstract [facility] [place] [address] Jacob Stacy, DO [address] [place] [address] Anjelica Pringle, [facility]11 Social History Tobacco Use Types Packs/Day Years [...] [address] [place] [phone] Mirian Fairbanks, COUNTER HAND-DISABILITY COUNSELOR [address] [place] [address] 12/30/2025 10:00 AM EDT Procedure Visit EREN TATUM [address] [place] [address] Jacob Stacy, DO [address] [place] [address] documented as of this encounter Goals Goal Patient Goal Type Associated Problems Recent Progress Patient-Stated? Author Reminders Care Plan OB Reminders No Open Scheduling, Background documented as of this encounter Visit Diagnoses Not on filedocumented in this encounter Additional Health Concerns Active Problems Noted Date Diagnosed Date OB Reminders 12/26/2023 documented as of this encounter
--- OUTSIDE RECORDS SUMMARY | 2024-12-28 20:17 | XMS_ITS | Encounter Summary ---
Author Organization [facility] Address [address] [place] [address] Care Team Providers Care Petroleum Sampler Name Role Phone Unavailable Primary Care Provider Unavailabl e Encounter Details Date Type Department Care Team (Late st Contact Info) Description 03/27/2024 Abstract [facility] [place] [address] Jacob Stacy, DO [address] [place] [address] Anjelica P[place], [facility]11 Social History Tobacco Use Types Packs/Day [...] [address] [place] [phone] Mirian Fairbanks, WASTEWATER TREATMENT SUPERVISOR-SUPERVISOR HISTOLOGY [address] [place] [address] 12/30/2025 10:00 AM EDT Procedure Visit EREN TATUM [address] [place] [address] Jacob Stacy, DO [address] [place] [address] documented as of this encounter Goals Goal Patient Goal Type Associated Problems Recent Progress Patient-Stated? Author Reminders Care Plan OB Reminders No Open Scheduling, Background documented as of this encounter Visit Diagnoses Not on filedocumented in this encounter Additional Health Concerns Active Problems Noted Date Diagnosed Date OB Reminders 12/26/2023 documented as of this encounter
--- OUTSIDE RECORDS SUMMARY | 2024-12-28 20:17 | XMS_ITS | Encounter Summary ---
Author Organization [facility] Address [address] [place] [address] Care Team Providers Care Biomechanical Engineer Name Role Phone Unavailable Primary Care Provider Unavailabl e Encounter Details Date Type Department Care Team (Late Contact Info) Description 11/08/2023 Abstract [facility] [place] [address] Jacob Stacy, DO [address] [place] [address] Anjelica Pring[place], [facility]11 Social History Tobacco Use Types Packs/Day [...] [address] [place] [phone] Mirian Fairbanks, DISCHARGE COORDINATOR-LAB INTERN [address] [place] [address] 12/30/2025 10:00 AM EDT Procedure Visit EREN TATUM [address] [place] [address] Jacob Stacy, DO [address] [place] [address] documented as of this encounter Visit Diagnoses Not on filedocumented in this encounter
--- OUTSIDE RECORDS SUMMARY | 2024-12-28 20:17 | XMS_ITS | Encounter Summary ---
Author Organization [facility] Address [address] [place] [address] Care Team Providers Care Hat Parts Cutter Machine Name Role Phone Unavailable Primary Care Provider Unavailabl e Encounter Details Date Type Department Care Team (Late Contact Info) Description 05/11/2024 Abstract [facility] [place] [address] Jacob Stacy, DO [address] [place], [facility]11 Social History Tobacco Use Types Packs/Day [...] [address] [place] [phone] Mirian Fairbanks, [place]UTE [place] TIER-CHIEF REVENUE OFFICER [address] [place] [address] 12/30/2025 10:00 AM EDT Procedure Visit EREN TATUM [address] [place] [address] Jacbo Stacy, DO [address] [place] [address] documented as of this encounter Goals Goal Patient Goal Type Associated Problems Recent Progress Patient-Stated? Author Reminders Care Plan OB Reminders No Open Scheduling, Background documented as of this encounter Visit Diagnoses Not on filedocumented in this encounter Additional Health Concerns Active Problems Noted Date Diagnosed Date OB Reminders 12/26/2023 documented as of this encounter
--- OUTSIDE RECORDS SUMMARY | 2024-12-28 20:17 | XMS_ITS | Encounter Summary ---
Author Organization [facility] Address [address] [place] [address] Care Team Providers Care Shipfitter Name Role Phone Unavailable Primary Care Provider Unavailabl e Encounter Details Date Type Department Care Team (Late Contact Info) Description 04/29/2024 Abstract [facility] [place] [address] Jacob Stacy, DO [address] [place], [facility]11 Social History Tobacco Use Types Packs/Day [...] Dermatology [address] [place] [phone] Mirian Fairbanks, LIBRARY MEDIA SPECIALIST-TRAFFIC COUNTER [address] [place], [place] [id number] 12/30/2025 10:00 AM EDT Procedure Visit EREN TATUM [address] [place] [address] Jacob Stacy, DO [address] [place] [address] documented as of this encounter Goals Goal Patient Goal Type Associated Problems Recent Progress Patient-Stated? Author Reminders Care Plan OB Reminders No Open Scheduling, Background documented as of this encounter Visit Diagnoses Not on filedocumented in this encounter Additional Health Concerns Active Problems Noted Date Diagnosed Date OB Reminders 12/26/2023 documented as of this encounter
--- OUTSIDE RECORDS SUMMARY | 2024-12-28 20:17 | XMS_ITS | Encounter Summary ---
Author Organization [facility] Address [address] [place] [address] Care Team Providers Care Hydroelectric Operator Name Role Phone Unavailable Primary Care Provider Unavailabl e Encounter Details Date Type Department Care Team (Late Contact Info) Description 03/02/2024 Abstract N[facility] [address] [place] [address] Suzanne Angela LPN Social History Tobacco [...] Office Visit [facility] [address] [facility] [address] [place] [phone] Mirian Fairbanks, ADMINISTRATIVE OFFICE SPECIALIST-PUBLIC HOUSING MANAGER [address] [place] [address] 12/30/2025 10:00 AM EDT Procedure Visit EREN TATUM [address] [place] [address] Jacob Stacy DO [address] [place] [address] documented as of this encounter Goals Goal Patient Goal Type Associated Problems Recent Progress Patient-Stated? Author Reminders Care Plan OB Reminders No Open Scheduling, Background documented as of this encounter Visit Diagnoses Not on filedocumented in this encounter Additional Health Concerns Active Problems Noted Date Diagnosed Date OB Reminders 12/26/2023 documented as of this encounter
--- OUTSIDE RECORDS SUMMARY | 2024-12-28 20:17 | XMS_ITS | Encounter Summary ---
Author Organization [facility] Address [address] [place] [address] Care Team Providers Care Acid Blower Name Role Phone Unavailable Primary Care Provider Unavailabl e Encounter Details Date Type Department Care Team (Late Contact Info) Description 11/12/2023 Abstract [facility] [address] [place] [address] Ophelia Suarez LPN [address] [place] [address] Social History Tobacco Use Types Packs/Day [...] [address] [place] [phone] Mirian Fairbanks, LOAN REPRESENTATIVE-EXHIBIT ARTIST [address] [place] [address] 12/30/2025 10:00 AM EDT Procedure Visit NOMApril [facility] [address] [place] [address] Jacob Stacy DO [address] [place] [address] documented as of this encounter Visit Diagnoses Not on filedocumented in this encounter
--- OUTSIDE RECORDS SUMMARY | 2024-12-28 20:17 | XMS_ITS | Encounter Summary ---
Author Organization [facility] Address [address] [place] [address] Care Team Providers Care Fuel Conversion Technician Name Role Phone Unavailable Primary Care Provider Unavailabl e Encounter Details Date Type Department Care Team (Late Contact Info) Description 04/10/2024 Abstract NOMApril T[facility] [place] [address] Jacob Stacy, DO [address] [place], [facility] Social History Tobacco Use Types Packs/Day [...] [address] [place] [phone] Mirian Fairbanks, HALVER MACHINE OPERATOR-RESEARCH ENVIRONMENTAL SCIENTIST [address] [place] [address] 12/30/2025 10:00 AM EDT Procedure Visit EREN TATUM [address] [place] [address] Jacob Stacy, DO [address] [place] [address] documented as of this encounter Goals Goal Patient Goal Type Associated Problems Recent Progress Patient-Stated? Author Reminders Care Plan OB Reminders No Open Scheduling, Background documented as of this encounter Visit Diagnoses Not on filedocumented in this encounter Additional Health Concerns Active Problems Noted Date Diagnosed Date OB Reminders 12/26/2023 documented as of this encounter
--- OUTSIDE RECORDS SUMMARY | 2024-12-28 20:17 | XMS_ITS | Encounter Summary ---
Author Organization [facility] Address [address] [place] [address] Care Team Providers Care Soaping Department Supervisor Name Role Phone Unavailable Primary Care Provider Unavailabl e Encounter Details Date Type Department Care Team ([facility] Contact Info) Description 12/24/2022 Clinisync Result Encounter N[facility]S External Department Unsolicited Gilles Stacy DO [address] [place], [facility]11 Social History Tobacco Use Types Packs/Day Years Used Date Smoking Tobacco: Never Assessed Comments Unknown Sex and Gender Information Value Date Recorded Sex Assigned at Female 12/11/2022 8:38 AM EDT Legal Sex Female 11:47 PM EDT Gender Identity Female 12/11/2022 8:38 AM EDT Sexual Orientation Straight 12/11/2022 8: 38 AM EDT COVID-19 Exposure Response Date Recorded In the last 10 days, have yo u been in contact with someone who was confirmed or suspected to have Coronavirus/COVID-19? No / Unsure 12/25/2022 8:37 AM EDT documented as of this encounter Plan of Treatment Upcoming Encounters Date Type Department Care Team (Late Contact Info) Description 11/25/2025 10:05 AM EDT Office Visit [facility] [address] [place] [phone] Mirian Fairbanks APRN-APRIL [address] [place] [address] 12/30/2025 10:00 AM EDT Procedure Visit EREN [place] [facility] [address] [place] [address] Gilles Stacy, DO [address] [place] [phone] documented as of this encounter Procedures Procedure Name Priority Date/Time Associated Diagnosis Comments US PELVIS TRANSVAGINAL 10:43 AM EDT MLR HEMOGLOBIN A1C Routine 12/24/2022 9: 30 AM EDT ALL LUTEINIZING HORMONE Routine 12/25/19 9:30 AM EDT ALL FOLLICLE STIMULATING HORMONE Routine 12/24/2022 9:30 AM EDT ALL DHEA SULFATE Routine 12/24/2022 9:30 AM EDT ALL DEHYDROEPIANDROSTERONE Routine 12/24 9:30 AM EDT documented in this encounter Results * US PELVIS TRANSVAGINAL (12/24/2022 10:43 AM EDT) Anatomical Region Laterality Modality Other 12/24/2022 10:4 3 AM EDT Narrative 12/24/2022 10:43 AM EDT The [address] [address] Ultrasound Report Signed Patient: Doreen Vallecillo MR#: [id number] : 1995 Acct:[id number] Age/Sex: 27 / F ADM Date: 12/24/22 Loc: US Attending Dr: Gilles Stacy D.O. Ordering Physician: Gilles Stacy D.O. Date of Service: 12/24/22 Procedure(s): US pelvis transvaginal Accession Number(s): [id number] cc: Gilles Stacy D.O.; Physician,Non-Staff MBruce The [address] [address] Patient Name: DOREEN VALLECILLO MRN: [facility]:[id number] date: 1995 Sex: F Assigned Patient Location: US Current Patient Location: US Accession/Order Number: [id number] Exam Date: 12/24/2022 09:40 Report Date: 12/24/2022 10:43 At the request of: GILLES STACY Procedure: US pelvis transvaginal EXAM: Pelvic ultrasound HISTORY: . Irregular Periods N92.6 . COMPARISON: None. TECHNIQUE: Transvaginal scanning was performed FINDINGS: Scanning of the pelvis demonstrates an anteverted uterus measuring 8.5 x 4.3 x 3.3 cm. Endometrial complex measures 8 mm. Left ovary measures 5 x 3 x 2.4 cm. Color-flow is noted. Follicles are noted. Right ovary measures 4.9 x 3 x 2.7 cm. Color-flow is noted. Follicles are noted. No fluid is noted in the cul-de-sac. US/US pelvis transvaginal IMPRESSION: 1. Normal-appearing uterus and endometrial complex. 2. Normal-appearing ovaries. Electronically authenticated by: NAYA MONTANA Date: 12/24/2022 10:43 Dictated By: Naya Montana M.D. Signed By: 12/24/22 1045 DD/ 1043 TD/TT: Manager Production: Procedure Note Radiology, Radiologist, MD - 12/24/2022 [place] [address] Ultrasound Report Signed Patient: Doreen Vallecillo JMR#: [id number] : 1995Acct:[id number] Age/Sex: 27 / FADM Date: 12/24/22 Loc: US Attending Dr: Gilles Stacy D.O. Ordering Physician: Gilles Stacy D.O. Date of Service: 12/24/22 Procedure(s): US pelvis transvaginal Accession Number(s): [id number] cc: Gilles Stacy D.O.; Physician,Non-Staff [place] The [place] [id number] Patient Name: DOREEN VALLECILLO MRN: [facility]:[id number] date: 1995 Sex: F Assigned Patient Location: Current Patient Location: US Accession/Order Number: [id number] Exam Date: 12/24/2022 09:40 Report Date: 12/24/2022 10:43 At the request of: GILLES STACY Procedure: US pelvis transvaginal EXAM: Pelvic ultrasound HISTORY: . Irregular Periods N92.6 . COMPARISON: None. TECHNIQUE: Transvaginal scanning was performed FINDINGS: Scanning of the pelvis demonstrates an anteverted uterusmeasuring 8.5 x 4.3 x 3.3 cm. Endometrial complex measures 8 mm. Left ovary measures 5 x 3 x 2.4 cm. Color-flow is noted. Follicles arenoted. Right ovary measures 4.9 x 3 x 2.7 cm. Color-flow is noted. Follicles are noted. No fluid is noted in the cul-de-sac. US/US pelvis transvaginal IMPRESSION: 1. Normal-appearing uterus and endometrial complex. 2. Normal-appearing ovaries. Electronically authenticated by: NAYA MONTANA Date: 12/24/2022 10:43 Dictated By: Naya Montana M.D. Signed By:12/24/22 1045 DD/ 104 TD/TT: Manager Production: Gilles Stacy DO [facility] Final Result * ALL DEHYDROEPIANDROSTERONE (12/24/2022 9:30 AM EDT) DHEA, SERUM 338 31 - 701 ng/dL TB Comment: This test was developed and its performance characteristics determined by [facility]. It has not been cleared or approved by the Food and Drug Administration. Performed at: [address] [id number] Oral Pathologist: Rylee Delgado MD, Phone: [phone] 12/24/2022 9:30 AM EDT 12/24/2022 9:33 AM EDT Narrative [facility] - 12/27/2022 12:10 PM EDT us Gilles Regis DO [facility] Final Result [facility] TB * ALL FOLLICLE STIMULATING HORMONE (12/24/2022 9:30 AM EDT) FSH 5.2 . mIU/mL [facility] Comment: Adult Female: Follicular phase 3.5 - 12.5 Ovulation phase 4.7 - 21.5 Luteal phase 1.7 - 7.7 Postmenopausal 25.8 - 134.8 Performed at: [address] [id number] Oral Pathologist: Dick Weeks PhD, Phone: [phone] 12/24/2022 9:30 AM EDT 12/24/2022 9:33 AM EDT Narrative [facility] - 12/25/2022 4:07 AM EDT [facility] Final Result Performing Organization Address [facility] de Phone Number [facility] * ALL LUTEINIZING HORMONE (12/24/2022 9:30 AM EDT) LUTEINIZING HORMONE(LH) 11.8 . mIU/mL [facility] Comment: Adult Female: Follicular phase 2.4 - 12.6 Ovulation phase 14.0 - 95.6 Luteal phase 1.0 - 11.4 Postmenopausal 7.7 - 58.5 12/24/2022 9:30 AM EDT 12/24/2022 9:33 AM EDT Narrative [facility] - 12/25/2022 4:07 AM EDT [facility] Final Result [facility] * ALL DHEA SULFATE (12/24/2022 9:30 AM EDT) DHEA-SULFATE 276.0 84.8 - 378.0 ug/dL [facility] 12/24/2022 9:30 AM EDT 12/24/2022 9:33 AM EDT Narrative [facility] - 12/25/2022 4:07 AM EDT us Gilles Regis DO [facility] Final Result [facility] * MLR HEMOGLOBIN A1C (12/24/2022 9:30 AM EDT) GLYCOHEMOGLOBIN A1C 5.7 4.5 - 6.2 % [facility] Comment: ADA RECOMMENDED LIMIT 4.0 - 6.0 ADA THERAPEUTIC TARGET < 7.0 ACTION SUGGESTED > 7.0 ESTIMATED AVERAGE GLUCOSE 117 mg/dL [facility] 12/24/2022 9:30 AM EDT 12/24/2022 9:33 AM EDT Narrative [facility] - 12/24/2022 11:25 AM EDT us Gilles Rodriguezo DO [facility] Final Result Performing Organization Address [facility]/State/ZIP Co de Phone Number [facility] documented in this encounter Visit Diagnoses Not on filedocumented in this encounter
--- OUTSIDE RECORDS SUMMARY | 2024-12-28 20:17 | XMS_ITS | Encounter Summary ---
Author Organization [facility] Address [address] [place] [address] Care Team Providers Care Developer Relations Manager Name Role Phone Unavailable Primary Care Provider Unavailabl e Encounter Details Date Type Department Care Team (Late Contact Info) Description 05/05/2024 Abstract NOMApril TATUM [place] [address] Jacob Stacy, DO [address] [place], [facility]11 Social History Tobacco Use Types Packs/Day [...] [address] [place] [phone] Mirian Fairbanks, INSTRUCTIONAL SUPERVISOR-UNINDENTURED APPRENTICE [address] [place] [address] 12/30/2025 10:00 AM EDT Procedure Visit EREN [...]
--- OUTSIDE RECORDS SUMMARY | 2024-12-28 20:17 | XMS_ITS | Encounter Summary ---
Author Organization [facility] Address [address] [place] [address] Care Team Providers Care Collection Support Specialist Name Role Phone Unavailable Primary Care Provider Unavailabl e Encounter Details Date Type Department Care Team (Late st Contact Info) Description 04/23/2024 Clinisync Result Encounter NOMS External Department Unsolicited Gilles Stacy, DO [address] [place] [address] Social History Tobacco Use Types Packs/Day Years [...] Dermatology [address] [place] [address] Mirian Fairbanks, FORKLIFT WHEEL LOADER-COAT TAILOR [address] [place] [address] 12/30/2025 10:00 AM EDT Procedure Visit N[facility]April [place] [facility] [address] [place] [phone] Gilles Stacy, [address] [place] [address] documented as of this encounter Goals Goal Patient Goal Type Associated Problems Recent Progress Patient-Stated? Author Reminders Care Plan OB Reminders No Open Scheduling, Background documented as of this encounter Procedures Procedure Name Priority Date/Time Associated Diagnosis Comments US OB BPP W NON-STRESS 04/23/2024 2:33 PM EST documented in this encounter Results * US OB BPP W NON-STRESS (04/23/2024 2:33 PM EST) Anatomical Region Laterality Modality Other 04/23/2024 2:33 PM EST Narrative 04/23/2024 2:35 [place] [address] Ultrasound Report Signed Patient: DOREEN VALLECILLO MR#: [id number] : 1995 Acct:[id number] Age/Sex: 28 / F ADM Date: 04/23/24 Loc: [facility] 250-[address]: Gilles Stacy D.O. Ordering Physician: Gilles Stacy D.O. Date of Service: 04/23/24 Procedure(s): US OB BPP w non-stress Accession Number(s): [id number] cc: Gilles Stacy D.O.; Physician,Non-Staff M.DChi The [address] [address] Patient Name: DOREEN VALLECILLO MRN: [id number]:[id number] date: 1995 Sex: F Assigned Patient Location: [facility] Current Patient Location: [facility] Accession/Order Number: [id number] Exam Date: 04/23/2024 13:55 Report Date: 04/23/2024 14:33 At the request of: GILLES STACY Procedure: US OB BPP w non-stress EXAMINATION: US OB BPP w non-stress HISTORY: GESTATIONAL DIABETES MELLITUS O24.419 COMPARISON: No relevant comparison available. TECHNIQUE: Ultrasound biophysical profile was performed in the radiology department. non-reactive stress testing was performed by nursing staff in the birthing center. FINDINGS: BREATHING MOVEMENTS: 2 GROSS BODY MOVEMENTS: 2 TONE: 2 QUALITATIVE AMNIOTIC FLUID VOLUME: 2 PRESENTATION: CEPHALIC HEART RATE: 141.36 bpm AMNIOTIC FLUID VOLUME: 20.1 cm GESTATIONAL AGE: 33 weeks 2 days US/US OB BPP w non-stress IMPRESSION: Total biophysical profile score: 8 Electronically authenticated by: NAYA FREEMAN Date: 04/23/2024 14:33 Dictated By: Naya Freeman M.D. Signed By: 04/23/241434 DD/ 32 TD/TT: Manager Completions: Procedure Note Radiology, Radiologist, MD - 04/23/2024 [place] [address] Ultrasound Report Signed Patient: DOREEN VALLECILLO JMR#: [id number] : 1995Acct:[id number] Age/Sex: 28 / FADM Date: 04/23/24 Loc: [facility] 250-[address]: Gilles Stacy D.O. Ordering Physician: Gilles Stacy D.O. Date of Service: 04/23/24 Procedure(s): US OB BPP w non-stress Accession Number(s): [id number] cc: Gilles Stacy D.O.; Physician,Non-Staff [place] The [address] [address] Patient Name: DOREEN VALLECILLO MRN: [id number] date: 1995 Sex: F Assigned Patient Location: [facility] Current Patient Location: [facility] Accession/Order Number: [id number] Exam Date: 04/23/2024 13:55 Report Date: 04/23/2024 14:33 At the request of: GILLES STACY Procedure: US OB BPP w non-stress EXAMINATION: US OB BPP w non-stress HISTORY: GESTATIONAL DIABETES MELLITUS O24.419 COMPARISON: No relevant comparison available. TECHNIQUE: Ultrasound biophysical profile was performed in the radiology department. non-reactive stress testing was performed by nursingstaff in the birthing center. FINDINGS: BREATHING MOVEMENTS: 2 GROSS BODY MOVEMENTS: 2 TONE: 2 QUALITATIVE AMNIOTIC FLUID VOLUME: 2 PRESENTATION: CEPHALIC HEART RATE: 141.36 bpm AMNIOTIC FLUID VOLUME: 20.1 cm GESTATIONAL AGE: 33 weeks 2 days US/US OB BPP w non-stress IMPRESSION: Total biophysical profile score: 8 Electronically authenticated by: NAYA FREEMAN Date: 04/23/2024 14:33 Dictated By: Naya Freeman M.D. Signed By:04/23/24 1435 DD/ 32 TD/TT: Manager Completions: us Gilles Regis DO [facility] Final Result documented in this encounter Visit Diagnoses Not on filedocumented in this encounter Additional Health Concerns Active Problems Noted Date Diagnosed Date OB Reminders 12/26/2023 documented as of this encounter
--- OUTSIDE RECORDS SUMMARY | 2024-12-28 20:17 | XMS_ITS | Encounter Summary ---
Author Organization [facility] Address [address] [place] [address] Care Team Providers Care Rigger Third Name Role Phone Unavailable Primary Care Provider Unavailabl e Encounter Details Date Type Department Care Team (Late Contact Info) Description 05/08/2024 Abstract NOMApril TATUM [facility] [place] [address] Jacob Stacy, DO [address] [place], [facility]11 Social History Tobacco Use Types Packs/Day Years [...] [address] [place] [phone] Mirian Fairbanks, NOODLE CATALYST MAKER-TANK CARPENTER [address] [place] [address] 12/30/2025 10:00 AM EDT Procedure Visit EREN TATUM [address] [place] [address] Jacob Stacy, DO [address] [place] [address] documented as of this encounter Goals Goal Patient Goal Type Associated Problems Recent Progress Patient-Stated? Author Reminders Care Plan OB Reminders No Open Scheduling, Background documented as of this encounter Visit Diagnoses Not on filedocumented in this encounter Additional Health Concerns Active Problems Noted Date Diagnosed Date OB Reminders 12/26/2023 documented as of this encounter
--- OUTSIDE RECORDS SUMMARY | 2024-12-28 20:17 | XMS_ITS | Encounter Summary ---
Author Organization [facility] Address [address] [place] [address] Care Team Providers Care Finance Officer Name Role Phone Unavailable Primary Care Provider Unavailabl e Encounter Details Date Type Department Care Team (Late Contact Info) Description 11/08/2023 Abstract NOMApril T[facility] [place] [address] Jacob Stacy, DO [address] [place] [address] [place], [facility]11 Social History Tobacco Use Types Packs/Day Years [...] [address] [place] [phone] Mirian Fairbanks, ENVELOPE FOLDING MACHINE OPERATOR-INTERIOR DESIGN INSTRUCTOR [address] [place] [address] 12/30/2025 10:00 AM EDT Procedure Visit EREN TATUM [address] [place] [address] Jacob Stacy, DO [address] [place] [address] documented as of this encounter Visit Diagnoses Not on filedocumented in this encounter
--- OUTSIDE RECORDS SUMMARY | 2024-12-28 20:17 | XMS_ITS | Encounter Summary ---
Author Organization [facility] Address [address] [place] [address] Care Team Providers Care Cork Tile Floor Layer Name Role Phone Unavailable Primary Care Provider Unavailabl e Encounter Details Date Type Department Care Team (Late Contact Info) Description 05/11/2024 Abstract NOMApril TATUM [facility] [place] [address] Jacob Stacy, DO [address] [place], [facility]11 Social History Tobacco Use Types Packs/Day [...] [address] [place] [phone] Mirian Fairbanks, PROPERTY MANAGEMENT INTERN-BUSINESS SOLUTION ANALYST [address] [place] [address] 12/30/2025 10:00 AM EDT Procedure Visit EREN TATUM [address] [place] [address] Jacob Stacy, DO [address] [place] [address] documented as of this encounter Goals Goal Patient Goal Type Associated Problems Recent Progress Patient-Stated? Author Reminders Care Plan OB Reminders No Open Scheduling, Background documented as of this encounter Visit Diagnoses Not on filedocumented in this encounter Additional Health Concerns Active Problems Noted Date Diagnosed Date OB Reminders 12/26/2023 documented as of this encounter
--- OUTSIDE RECORDS SUMMARY | 2024-12-28 20:17 | XMS_ITS | Encounter Summary ---
Author Organization [facility] Address [address] [place] [address] Care Team Providers Care Auto Damage Adjuster Name Role Phone Unavailable Primary Care Provider Unavailabl e Encounter Details Date Type Department Care Team (Late st Contact Info) Description 04/16/2024 Clinisync Result Encounter [facility] External Department Unsolicited Gilles Stacy, DO [address] [place] [address] Social History Tobacco Use Types Packs/Day Years [...] Dermatology [address] [place] [address] Mirian Fairbanks, INORGANIC CHEMIST-ROOM SERVICE MANAGER [address] [place] [address] 12/30/2025 10:00 AM EDT Procedure Visit [facility] [address] [place] [phone] Gilles Stacy, [address] [place] [address] documented as of this encounter Goals Goal Patient Goal Type Associated Problems Recent Progress Patient-Stated? Author Reminders Care Plan OB Reminders No Open Scheduling, Background documented as of this encounter Procedures Procedure Name Priority Date/Time Associated Diagnosis Comments US OB BPP W NON-STRESS 04/16/2024 11:26 AM EST documented in this encounter Results * US OB BPP W NON-STRESS (04/16/2024 11:26 AM EST) Anatomical Region Laterality Modality Other 04/16/2024 11:2 6 AM EST Narrative 04/16/2024 11:29 [place] [address] Ultrasound Report Signed Patient: YU VALLECILLO MR#: [id number] : 1995 Acct:[id number] Age/Sex: 28 / F ADM Date: 04/16/24 Loc: [facility] 254-[address]: Gilles Stacy D.O. Ordering Physician: Gilles Stacy D.O. Date of Service: 04/16/24 Procedure(s): US OB BPP w non-stress Accession Number(s): [id number] cc: Gilles Stacy D.O.; Physician,Non-Staff M.DChi The [address] [address] Patient Name: YU VALLECILLO MRN: [id number] date: 1995 Sex: F Assigned Patient Location: LAB Current Patient Location: [facility] Accession/Order Number: [id number] Exam Date: 04/16/2024 10:55 Report Date: 04/16/2024 11:26 At the request of: GILLES STACY Procedure: US OB BPP w non-stress EXAMINATION: US OB BPP w non-stress HISTORY: Gestational diabetes mellitus O24.419 COMPARISON: No relevant comparison available. TECHNIQUE: Ultrasound biophysical profile was performed in the radiology department. non-reactive stress testing was performed by nursing staff in the birthing center. FINDINGS: BREATHING MOVEMENTS: 2 GROSS BODY MOVEMENTS: 2 TONE: 2 QUALITATIVE AMNIOTIC FLUID VOLUME: 2 PRESENTATION: CEPHALIC HEART RATE: 151.69 bpm AMNIOTIC FLUID VOLUME: 17.5 cm GESTATIONAL AGE: 32w2d US/US OB BPP w non-stress IMPRESSION: Total biophysical profile score: 8 Electronically authenticated by: HEMANT FREEMAN Date: 04/16/2024 11:26 Dictated By: Hemant Freeman M.D. Signed By: 04/16/24 1129 DD/ 1126 TD/TT: Sweatband Cutting Machine Operator: Procedure Note Radiology, Radiologist, MD - 04/16/2024 [place] [address] Ultrasound Report Signed Patient: YU VALLECILLO JMR#: [id number] : 1995Acct:[id number] Age/Sex: 28 / FADM Date: 04/16/24 Loc: [facility] 254-[address]: Gilles Stacy D.O. Ordering Physician: Gilles Stacy D.O. Date of Service: 04/16/24 Procedure(s): US OB BPP w non-stress Accession Number(s): [id number] cc: Gilles Stacy D.O.; Physician,Non-Staff Baltazar The [address] [address] Patient Name: YU VALLECILLO MRN: [id number] date: 1995 Sex: F Assigned Patient Location: LAB Current Patient Location: [facility] Accession/Order Number: [id number] Exam Date: 04/16/2024 10:55 Report Date: 04/16/2024 11:26 At the request of: GILLES STACY Procedure: US OB BPP w non-stress EXAMINATION: US OB BPP w non-stress HISTORY: Gestational diabetes mellitus O24.419 COMPARISON: No relevant comparison available. TECHNIQUE: Ultrasound biophysical profile was performed in the radiology department. non-reactive stress testing was performed by nursingstaff in the birthing center. FINDINGS: BREATHING MOVEMENTS: 2 GROSS BODY MOVEMENTS: 2 TONE: 2 QUALITATIVE AMNIOTIC FLUID VOLUME: 2 PRESENTATION: CEPHALIC HEART RATE: 151.69 bpm AMNIOTIC FLUID VOLUME: 17.5 cm GESTATIONAL AGE: 32w2d US/US OB BPP w non-stress IMPRESSION: Total biophysical profile score: 8 Electronically authenticated by: HEMANT FREEMAN Date: 04/16/2024 11:26 Dictated By: Hemant Freeman M.D. Signed By:04/16/24 1129 DD/ 1126 TD/TT: Sweatband Cutting Machine Operator: us Gilles Stacy DO [facility] Final Result documented in this encounter Visit Diagnoses Not on filedocumented in this encounter Additional Health Concerns Active Problems Noted Date Diagnosed Date OB Reminders 12/26/2023 documented as of this encounter
--- OUTSIDE RECORDS SUMMARY | 2024-12-28 20:17 | XMS_ITS | Encounter Summary ---
Author Organization [facility] Address [address] [place] [address] Care Team Providers Care Senior Landscape Architect Name Role Phone Unavailable Primary Care Provider Unavailabl e Encounter Details Date Type Department Care Team (Late st Contact Info) Description 10/21/2023 Clinisync Result Encounter [facility] External Department Unsolicited Gilles Stacy, DO [address] [place] [place], [place] [phone] Social History Tobacco Use Types Packs/Day Years Used Date Smoking Tobacco: Never Assessed Comments No Sex and Gender Information Value Date Recorded [...] Dermatology [address] [place] [address] Mirian Fairbanks, SCREENING NURSE-WEBSPHERE ADMINISTRATOR [address] [place] [address] 12/30/2025 10:00 AM EDT Procedure Visit [facility] [address] [place] [phone] Gilles Stacy, DO [address] [place] [address] documented as of this encounter Procedures Procedure Name Priority Date/Time Associated Diagnosis Comments US OB TRANSVAGINAL 10/21/2023 12 :45 PM EDT documented in this encounter Results * US OB TRANSVAGINAL (10/21/2023 12:45 PM EDT) Anatomical Region Laterality Modality Other 10/21/2023 12:4 5 PM EDT Narrative 10/21/2023 12:47 [place] [address] Ultrasound Report Signed Patient: DOREEN VALLECILLO MR#: [id number] : 1995 Acct:[id number] Age/Sex: 28 / F ADM Date: 10/21/23 Loc: US Attending Dr: Gilles Stacy D.O. Ordering Physician: Gilles Stacy D.O. Date of Service: 10/21/23 Procedure(s): US OB transvaginal Accession Number(s): [id number] cc: Gilles Stacy D.O.; Physician,Non-Staff M.Missy [place] [id number] Patient Name: DOREEN VALLECILLO MRN: [id number] date: 1995 Sex: F Assigned Patient Location: Current Patient Location: Accession/Order Number: [id number] Exam Date: 10/21/2023 12:03 Report Date: 10/21/2023 12:45 At the request of: GILLES STACY Procedure: US OB transvaginal EXAMINATION: US OB transvaginal HISTORY: Spotting in early COMPARISON: No relevant comparison available. FINDINGS: Transvaginal images Wood intrauterine gestation Gestational sac: 1.60 cm, 5 weeks 6 days CRL: 5.4 mm, 6 weeks 2 days Yolk sac: 1.6 mm Heart rate: 125 beats minute Cervix: Closed, 5.0 cm The uterus is normal, anteverted The ovaries are normal Clinical age: Unknown Ultrasound age: 6 weeks 2 days Ultrasound MARIELLA: 06/13/2024 US/US OB transvaginal IMPRESSION: Viable wood intrauterine gestation measuring 6 weeks 2 days Electronically authenticated by: NAYA FREEMAN Date: 10/21/2023 12:45 Dictated By: Naya Freeman M.D. Signed By: 10/21/23 1247 DD/ 1245 TD/TT: Nutrition Specialist: Procedure Note Radiology, Radiologist, - 10/21/2023 [place] [address] Ultrasound Report Signed Patient: DOREEN VALLECILLO JMR#: [id number] : 1995Acct:[id number] Age/Sex: 28 / FADM Date: 10/21/23 Loc: US Attending Dr: Gilles Stacy D.O. Ordering Physician: Gilles Stacy D.O. Date of Service: 10/21/23 Procedure(s): US OB transvaginal Accession Number(s): [id number] cc: Gilles Stacy D.O.; Physician,Non-Staff Baltazar The [place] [id number] Patient Name: DOREEN VALLECILLO MRN: [id number] date: 1995 Sex: F Assigned Patient Location: Current Patient Location: Accession/Order Number: [id number] Exam Date: 10/21/2023 12:03 Report Date: 10/21/2023 12:45 At the request of: GILLES STACY Procedure: US OB transvaginal EXAMINATION: US OB transvaginal HISTORY: Spotting in early COMPARISON: No relevant comparison available. FINDINGS: Transvaginal images Wood intrauterine gestation Gestational sac: 1.60 cm, 5 weeks 6 days CRL: 5.4 mm, 6 weeks 2 days Yolk sac: 1.6 mm Heart rate: 125 beats minute Cervix: Closed, 5.0 cm The uterus is normal, anteverted The ovaries are normal Clinical age: Unknown Ultrasound age: 6 weeks 2 days Ultrasound MARIELLA: 06/13/2024 US/US OB transvaginal IMPRESSION: Viable wood intrauterine gestation measuring 6 weeks 2 days Electronically authenticated by: NAYA FREEMAN Date: 10/21/2023 12:45 Dictated By: Naya Freeman M.D. Signed By:10/21/23 1247 DD/ 1245 TD/TT: Nutrition Specialist: us Gilles Stacy DO [facility] Final Result documented in this encounter Visit Diagnoses Not on filedocumented in this encounter
--- OUTSIDE RECORDS SUMMARY | 2024-12-28 20:17 | XMS_ITS | Encounter Summary ---
Author Organization [facility] Address [address] [place] [address] Care Team Providers Care Sql Developer Dba Name Role Phone Unavailable Primary Care Provider Unavailabl e Encounter Details Date Type Department Care Team (Late st Contact Info) Description 05/19/2024 Abstract [facility] [place] [address] Jacob Stacy, DO [address] [place], [facility] Social History [...] [address] [place] [phone] Mirian Fairbanks, SUPERVISOR INSTRUMENT MAINTENANCE-BIOMETRICS SPECIALIST [address] [place] [address] 12/30/2025 10:00 AM EDT Procedure Visit [facility] [address] [place] [address] Jacob Stacy, DO [address] [place] [address] documented as of this encounter Goals Goal Patient Goal Type Associated Problems Recent Progress Patient-Stated? Author Reminders Care Plan OB Reminders No Open Scheduling, Background documented as of this encounter Visit Diagnoses Not on filedocumented in this encounter Additional Health Concerns Active Problems Noted Date Diagnosed Date OB Reminders 12/26/2023 documented as of this encounter
--- OUTSIDE RECORDS SUMMARY | 2024-12-28 20:18 | XMS_ITS | Encounter Summary ---
Author Organization [facility] Address [address] [place] [address] Care Team Providers Care [employer] Name Role Phone Unavailable Primary Care Provider Unavailabl e Encounter Details Date Type Department Care Team (Late st Contact Info) Description 01/23/2024 Clinisync Result Encounter [facility] External Department Unsolicited Gilles Stacy, DO [address] [place] [address] Social History Tobacco Use Types Packs/Day Years [...] Dermatology [address] [place] [address] Mirian Fairbanks, BARREL LOADER AND CLEANER-INTELLIGENCE OPERATIONS SPECIALIST [address] [place] [address] 12/30/2025 10:00 AM EDT Procedure Visit [facility] [address] [place] [phone] Gilles Stacy, [address] [place] [address] documented as of this encounter Goals Goal Patient Goal Type Associated Problems Recent Progress Patient-Stated? Author Reminders Care Plan OB Reminders No Open Scheduling, Background documented as of this encounter Procedures Procedure Name Priority Date/Time Associated Diagnosis Comments US OB ANATOMY 01/23/2024 11:30 AM EDT documented in this encounter Results * US OB ANATOMY (01/23/2024 11:30 AM EDT) Anatomical Region Laterality Modality Other 01/23/2024 11:3 0 AM EDT Narrative 01/23/2024 11:32 [place] [address] Ultrasound Report Signed Patient: DOREEN VALLECILLO MR#: [id number] : 1995 Acct:[id number] Age/Sex: 28 / F ADM Date: 01/23/24 Loc: [facility] Attending Dr: Gilles Stacy D.O. Ordering Physician: Gilles Stacy D.O. Date of Service: 01/23/24 Procedure(s): US OB anatomy Accession Number(s): [id number] cc: Gilles Stacy D.O.; Physician,Non-Staff M.DChi The [address] [address] Patient Name: DOREEN VALLECILLO MRN: [id number] date: 1995 Sex: F Assigned Patient Location: [facility] Current Patient Location: [facility] Accession/Order Number: [id number] Exam Date: 01/23/2024 10:03 Report Date: 01/23/2024 11:30 At the request of: GILLES STACY Procedure: US OB anatomy EXAMINATION: US OB anatomy, US OB cervical length HISTORY: ANATOMY COMPARISON: Ultrasound OB transvaginal 10/21/2023 TECHNIQUE: Transabdominal sonographic examination was performed for obstetrical and evaluation. FINDINGS: Number: 1 Heart Rate: 149 bpm H.B. /min Amniotic Fluid Volume: Subjectively normal Placental Location: ANTERIOR with lower margin 4.0 cm from os. Cervix Length: 4.01 cm ; closed. ANATOMY: Normal Structures -cerebellum, choroid plexus, cisterna magna, lateral cerebral ventricles, orbits, midline falx, hard palate, four-chamber heart, RVOT, LVOT, stomach, kidneys, bladder, right upper extremity, left upper extremity, right lower extremity, left lower extremity. SUBOPTIMALLY SEEN: Umbilical arteries, three-vessel cord, spine ABNORMALITIES: None BIOMETRY: BPD: 4.42 cm; 136 Day; 15.30 % HC: 17.23 cm; 139 Day; 20.90 % AC: 15.42 cm; 144 Day; 54.90 % FL: 3.51 cm; 148 Day; 70 % EFW:326.21 g; 67.20 % FL/AC: 22.76 FL/BPD: 79.41 HC/AC: 1.12 GESTATIONAL AGE: Age by EDC: 20 weeks 2 days Age by current US: 20 weeks 2 days MARIELLA by current US: 2024-06-09 MARIELLA by EDC: 2024-06-09 US/US OB anatomy IMPRESSION: 1. Single live intrauterine with growth detailed above. 2. Suboptimal visualization of the umbilical arteries, three-vessel cord, and spine due to position. Electronically authenticated by: YOUNG SWANSON Date: 01/23/2024 11:30 Dictated By: Young Swanson M.D. Signed By: 01/23/24 1132 DD/ 1130 TD/TT: Production Artist: Procedure Note Radiology, Radiologist, MD - 01/23/2024 [place] [address] Ultrasound Report Signed Patient: DOREEN VALLECILLO JMR#: [id number] : 1995Acct:[id number] Age/Sex: 28 FADM Date: 01/23/24 Loc: [facility] Attending Dr: Gilles Stacy D.O. Ordering Physician: Gilles Stacy D.O. Date of Service: 01/23/24 Procedure(s): US OB anatomy Accession Number(s): [id number] cc: Gilles Stacy D.O.; Physician,Non-Staff MBruce The [place] [id number] Patient Name: DOREEN VALLECILLO MRN: [id number] date: 1995 Sex: F Assigned Patient Location: [facility] Current Patient Location: [facility] Accession/Order Number: [id number] Exam Date: 01/23/2024 10:03 Report Date: 01/23/2024 11:30 At the request of: GILLES STACY Procedure: US OB anatomy EXAMINATION: US OB anatomy, US OB cervical length HISTORY: ANATOMY COMPARISON: Ultrasound OB transvaginal 10/21/2023 TECHNIQUE: Transabdominal sonographic examination was performed for obstetrical and evaluation. FINDINGS: Number: 1 Heart Rate: 149 bpm H.B. /min Amniotic Fluid Volume: Subjectively normal Placental Location: ANTERIOR with lower margin 4.0 cm from os. Cervix Length: 4.01 cm ; closed. ANATOMY: Normal Structures -cerebellum, choroid plexus, cisterna magna, lateral cerebral ventricles, orbits, midline falx, hard palate, four-chamberheart, RVOT, LVOT, stomach, kidneys, bladder, right upper extremity, left upper extremity, right lower extremity, left lower extremity. SUBOPTIMALLY SEEN: Umbilical arteries, three-vessel cord, spine ABNORMALITIES: None BIOMETRY: BPD: 4.42 cm; 136 Day; 15.30 % HC: 17.23 cm; 139 Day; 20.90 % AC: 15.42 cm; 144 Day; 54.90 % FL: 3.51 cm; 148 Day; 70 % EFW:326.21 g; 67.20 % FL/AC: 22.76 FL/BPD: 79.41 HC/AC: 1.12 GESTATIONAL AGE: Age by EDC: 20 weeks 2 days Age by current US: 20 weeks 2 days MARIELLA by current US: 2024-06-09 MARIELLA by EDC: 2024-06-09 US/US OB anatomy IMPRESSION: 1. Single live intrauterine with growth detailed above. 2. Suboptimal visualization of the umbilical arteries, three-vessel cord,and spine due to position. Electronically authenticated by: YOUNG SWANSON Date: 01/23/2024 11:30 Dictated By: Young Swanson M.D. Signed By:01/23/24 1132 DD/ 1130 TD/TT: Production Artist: us Gilles Stacy DO [facility] Final Result documented in this encounter Visit Diagnoses Not on filedocumented in this encounter Additional Health Concerns Active Problems Noted Date Diagnosed Date OB Reminders 12/26/2023 documented as of this encounter
--- OUTSIDE RECORDS SUMMARY | 2024-12-28 20:18 | XMS_ITS | Encounter Summary ---
Author Organization [facility] tem Address [facility] [id number] [address] [place] [address] Care Team Providers Care Appraisal Analyst Name Role Phone Unavailable Primary Care Provider Unavailabl e Encounter Details Date Type Department Care Team (Late Contact Info) Description 05/09/2024 Documentation [facility] - Labor [address] [place] [phone] Marissa Lacy, SHADE Social History Tobacco Use Types Packs/Day Years Used Date Smoking Tobacco: Never Smokeless Tobacco: Never Childcare Answer Date Recorded Childcare Unknown 09/10/2018 Employment Answer Date Recorded Employment Unknown 09/10/2018 Comments No Sex and Gender Information Value Date Recorded Sex Assigned at Not on file Legal Sex Female 12:00 PM EDT Gender Identity Not on file Sexual Orientation Not on file documented as of this encounter Plan of Treatment Not on file documented as of this encounter Visit Diagnoses Not on filedocumented in this encounter
--- OUTSIDE RECORDS SUMMARY | 2024-12-28 20:18 | XMS_ITS | Encounter Summary ---
Author Organization [employer] [facility] tem Address [id number] [address] [place] [address] Care Team Providers Care Aerospace Physiological Technician Name Role Phone Unavailable Primary Care Provider Unavailabl e Encounter Details Date Type Department Care Team (Late st Contact Info) Description 11/23/2024 Telephone [facility] [address] [place] [address] Cash Nunez RN Social History Tobacco Use Types Packs/Day Years [...] on file documented as of this encounter Miscellaneous Notes * Telephone Encounter - Cash Nunez RN - 11/23/2024 1:36 PM EDT Wanted to know if she could have a nausea medication called in is having a very harsh period. Pharmacy on file is correct. * Telephone Encounter - Sugey Simeon MD - 11/23/2024 1:36 PM EDT Hi can you forward this one of the providers over there. I have never seen this patient. thanks documented in this encounter Plan of Treatment Not on file documented as of this encounter Visit Diagnoses Not on filedocumented in this encounter
--- OUTSIDE RECORDS SUMMARY | 2024-12-28 20:18 | XMS_ITS | Encounter Summary ---
Author Organization [facility] Address [address] [place] [address] Care Team Providers Care Senior Art Director Name Role Phone Unavailable Primary Care Provider Unavailabl e Encounter Details Date Type Department Care Team (Latest Contact Info) Description 12/21/2024 Travel Social History Tobacco Use Types Packs/Day Years [...] [address] [place] [address] Mirian Fairbanks, CHASER APPRENTICE-HYDRAULIC DREDGE OPERATOR [address] [place] [address] 12/30/2025 10:00 AM EDT Procedure Visit [facility] [place] [facility] [address] [facility] [place] [phone] Jacob Stacy DO [address] [facility] [address] [place], [place] [address] documented as of this encounter Goals Goal Patient Goal Type Associated Problems Recent Progress Patient-Stated? Author Reminders Care Plan OB Reminders No Open Scheduling, Background documented as of this encounter Visit Diagnoses Not on filedocumented in this encounter Additional Health Concerns Active Problems Noted Date Diagnosed Date OB Reminders 12/26/2023 documented as of this encounter
--- OUTSIDE RECORDS SUMMARY | 2024-12-28 20:18 | XMS_ITS | Encounter Summary ---
Author Organization [facility] Address [address] [place] [address] Care Team Providers Care Consumer Marketing Analyst Name Role Phone Unavailable Primary Care Provider Unavailabl e Encounter Details Date Type Department Care Team (Late Contact Info) Description 12/28/2024 Bamboo flowsheet N[facility] [address] [facility] [address] Marlyn Jackson, CIGARETTE INSPECTOR [address] [facility] [address] Social History Tobacco Use Types Packs/Day Years [...] [address] [place] [address] Mirian Fairbanks, AUTOMATIC BLOCKER-ASSIGNMENT DESK EDITOR [address] [place], [place] [address] 12/30/2025 10:00 AM EDT Procedure Visit NOMApril [facility] [address] [facility] [place] [address] Jacob Stacy DO [address] [facility] [address] documented as of this encounter Goals Goal Patient Goal Type Associated Problems Recent Progress Patient-Stated? Author Reminders Care Plan OB Reminders No Open Scheduling, Background documented as of this encounter Visit Diagnoses Not on filedocumented in this encounter Additional Health Concerns Active Problems Noted Date Diagnosed Date OB Reminders 12/26/2023 documented as of this encounter
--- OUTSIDE RECORDS SUMMARY | 2024-12-28 20:18 | XMS_ITS | Encounter Summary ---
Author Organization [facility] Address [address] [place] [address] Care Team Providers Care Shoe Parts Caser Name Role Phone Unavailable Primary Care Provider Unavailabl e Encounter Details Date Type Department Care Team (Late Contact Info) Description 06/02/2024 Abstract N[facility]April [facility] [place] [address] Jacob Stacy, DO [address] [place], [facility] Social History Tobacco Use Types [...] Description 11/25/2025 10:05 AM EDT Office Visit [facility] [address] [place] [phone] Mirian Fairbanks, ASSISTANT SPA MANAGER-HOLTER TECHNICIAN [address] [place] [address] 12/30/2025 10:00 AM EDT Procedure Visit EREN [facility] [address] [place] [address] Jacob Stacy, DO [address] [place] [address] documented as of this encounter Goals Goal Patient Goal Type Associated Problems Recent Progress Patient-Stated? Author Reminders Care Plan OB Reminders No Open Scheduling, Background documented as of this encounter Visit Diagnoses Not on filedocumented in this encounter Additional Health Concerns Active Problems Noted Date Diagnosed Date OB Reminders 12/26/2023 documented as of this encounter
--- OUTSIDE RECORDS SUMMARY | 2024-12-28 20:18 | XMS_ITS | Clinical Summary ---
Author Organization [facility] Address [address] [facility] [place] [address] Care Team Providers Care Razor Sharpener Name Role Phone Unavailable Primary Care Provider Unavailabl e Allergies No known active allergies Medications ketoconazole (NIZOral) 2 % shampooIndicati ons:Other seborrheic dermatitis Lather on scalp, leave on 5 min before rinsing, 2-3 times a week, 30 day supply 120 mL 11 11/24/2024 Active fluocinonide (Lidex) 0.05 % external solutionIndicat ions:Other seborrheic dermatitis Apply to affected areas on the scalp, up to twice a day when flared, 30 day supply 60 mL 11 11/24/2024 Active Active Problems No known active problems Encounters Date Type Department Care Team Description 12/28/2024 1:00 PM EDT Office Visit [facility] [address] [place] [address] [place] [phone] Marlyn Jackson NP Well woman exam with routine gynecological exam 12/28/2024 [facility] [address] [place] [address] [place] [phone] Marlyn Jackson NP 12/21/2024 Travel 11/24/2024 2:20 PM EDT Office Visit [facility] [place] [facility] [address] [facility] [address] [place] [address] Mirian Fairbanks, ZIPPER MACHINE OPERATOR-REHAB NURSING TECH Melanocytic nevus of trunk (Primary Dx); Other seborrheic dermatitis; Melanocytic nevus of face, other location; Capillary angioma 11/24/2024 Bamboo flowsheet [facility] [place] [facility] [address] [place] [address] Mirian Fairbanks APRN-CNP 11/24/2024 Travel 11/17/2024 Travel from Last 3 Months Family History Medical History Relation Name Comments Cervical cancer Mother Hypertension Mother Relation Name Status Comments Mother Social History Tobacco Use Types Packs/Day Years Used Date Smoking Tobacco: Never Assessed Comments Unknown Sex and Gender Information Value Date Recorded Sex Assigned at Female 12/11/2022 8:38 AM EDT Legal Sex Female 11:47 PM EDT Gender Identity Female 12/11/2022 8:38 AM EDT Sexual Orientation Straight 12/11/2022 8: 38 AM EDT Last Filed Vital Signs Vital Sign Reading Time Taken Comments Blood Pressure 120/80 12/28/2024 12:56 PM EDT Pulse - - Temperature - - Respiratory Rate - - Oxygen Saturation - - Inhaled Oxygen Concentration - - Weight 145 kg (320 lb 1.9 oz) 12/28/2024 12:56 P M EDT Height 175.3 cm (5' 9 ) 01/01/2023 2:38 PM EDT Body Mass Index 47.27 01/01/2023 2:38 PM EDT Plan of Treatment Upcoming Encounters Date Type Department Care Team (Late st Contact Info) Description 11/25/2025 10:05 AM EDT Office Visit [facility] [address] [place] [phone] Mirian Fairbanks APRN-APRIL [address] [place] [address] 12/30/2025 10:00 AM EDT Procedure Visit [facility] [address] [facility] [place] [address] Jacob Stacy DO [address] [facility] [address] [place], [place] [id number] Health Maintenance Due Date Last Done Comments Influenza Vaccine (#1) 2024 Goals Goal Patient Goal Type Associated Problems Recent Progress Patient-Stated? Author Reminders Care Plan OB Reminders No Open Scheduling, Background Additional Health Concerns Active Problems Noted Date Diagnosed Date OB Reminders 12/26/2023 Insurance [employer]
--- OUTSIDE RECORDS SUMMARY | 2024-12-28 20:18 | XMS_ITS | Clinical Summary ---
Author Organization [facility] Address [id number] [address] [place] [address] Care Team Providers Care Printed Circuit Boards Router Name Role Phone Unavailable Primary Care Provider Unavailabl e Allergies No known active allergies Medications vitamins #45/iron/FA ( VITAMIN #45-IRON-FA ORAL) Take by mouth. Active acetaminophen (TYLENOL EXTRA STRENGTH) 500 mg tablet Take 2 tablets (1,000 mg total) by mouth every 8 (eight) hours. 30 tablet 05/08/2024 Active docusate sodium (COLACE) 100 mg capsule Take 1 capsule (100 mg total) by mouth in the morning and 1 capsule (100 mg total) before bedtime. 60 capsule 05/08/2024 Active ibuprofen (MOTRIN) 800 mg tablet Take 1 tablet (800 mg total) by mouth every 8 (eight) hours. 30 tablet 05/08/2024 Active labetaloL (NORMODYNE) 300 mg tablet Take 2 tablets (600 mg total) by mouth every 8 (eight) hours. 180 tablet 1 05/10/2024 Active NIFEdipine XL (PROCARDIA XL) 60 mg 24 hr tablet Take 1 tablet (60 mg total) by mouth every 12 (twelve) hours. 60 tablet 1 05/10/2024 Active Active Problems Problem Noted Date Diagnosed Date Preeclampsia, severe, third trimester 05/04/2024 Pre-eclampsia, severe, antepartum, third trimest er 05/03/2024 Encounters Date Type Department Care Team Description 11/23/2024 Telephone [facility] [address] [place] [address] Cash Nunez RN from Last 3 Months Immunizations Immunization Administration Dates Next Due Tdap 05/08/2024 Social History Tobacco Use Types Packs/Day Years Used Date Smoking Tobacco: Never Smokeless Tobacco: Never Tobacco Cessation:Counseling Given: No Childcare Answer Date Recorded Childcare Unknown 09/10/2018 Employment Answer Date Recorded Employment Unknown 09/10/2018 Comments No Sex and Gender Information Value Date Recorded Sex Assigned at Not on file Legal Sex Female 12:00 PM EDT Gender Identity Not on file Sexual Orientation Not on file Last Filed Vital Signs Vital Sign Reading Time Taken Comments Blood Pressure 124/61 05/10/2024 11:35 AM EST Pulse 88 05/10/2024 11:35 AM EST Temperature 36.8 C (98.2 F) 05/10/2024 11:35 AM EST Respiratory Rate 18 05/10/2024 11:3 5 AM EST Oxygen Saturation 97% 05/09/2024 12: 13 PM EST Inhaled Oxygen Concentration - - Weight 132.8 kg (292 lb 12.3 oz) 05/10/2024 2:09 AM EST Height 177.8 cm (5' 10 ) 05/03/2024 4:32 AM EST Body Mass Index 42.01 05/03/2024 4:32 AM EST Plan of Treatment Health Maintenance Due Date Last Done Comments Depression Screening 2008 Adult BMI Follow Up Plan 2014 Pap Smear 2017 COVID-19 Vaccine (2024-05 6 season) 2024 03/06/2021 Influenza Vaccine 11/30/2024 Tobacco Screening 05/09/2025 05/09/2024 Adult BMI Screening 05/10/2025 05/10/2024 DTaP,Tdap and Td Vaccines (7 - Td or Tdap) 05/08/2034 05/08/2024, 07/17/2001, 08/05/1997, Additional history exists Medical Devices Not on file Insurance [employer] [id number] PLAN Advance Directives * Full Code (Latest Code Status on File) Date Activated Date Inactivated Comments 05/03/2024 4:19 AM 05/10/2024 3:22 PM
--- OUTSIDE RECORDS SUMMARY | 2024-12-28 20:18 | XMS_ITS | Encounter Summary ---
Author Organization [facility] Address [address] [place] [address] Care Team Providers Care Computed Tomography Technologist Name Role Phone Unavailable Primary Care Provider Unavailabl e Encounter Details Date Type Department Care Team (Late st Contact Info) Description 01/23/2024 Clinisync Result Encounter [facility] External Department Unsolicited Gilles Stacy, DO [address] [place] [address] Social History Tobacco Use Types Packs/Day Years [...] Dermatology [address] [place] [address] Mirian Fairbanks, FILTER PRESS TENDER-DRAWER LINER [address] [place] [address] 12/30/2025 10:00 AM EDT Procedure Visit [facility] [address] [facility] [place] [phone] Gilles Stacy, [address] [place] [address] documented as of this encounter Goals Goal Patient Goal Type Associated Problems Recent Progress Patient-Stated? Author Reminders Care Plan OB Reminders No Open Scheduling, Background documented as of this encounter Procedures Procedure Name Priority Date/Time Associated Diagnosis Comments US OB CERVICAL LENGTH 01/23/2024 11:30 AM EDT documented in this encounter Results * US OB CERVICAL LENGTH (01/23/2024 11:30 AM EDT) Anatomical Region Laterality Modality Other 01/23/2024 11:3 0 AM EDT Narrative 01/23/2024 11:32 [place] [address] Ultrasound Report Signed Patient: DOREEN VALLECILLO MR#: [id number] : 1995 Acct:[id number] Age/Sex: 28 / F ADM Date: 01/23/24 Loc: [facility] Attending Dr: Gilles Stacy D.O. Ordering Physician: Gilles Stacy D.O. Date of Service: 01/23/24 Procedure(s): US OB cervical length Accession Number(s): [id number] cc: Gilles Stacy D.O.; Physician,Non-Staff M.DChi [address] [address] Patient Name: DOREEN VALLECILLO MRN: [id number] date: 1995 Sex: F Assigned Patient Location: [facility] Current Patient Location: [facility] Accession/Order Number: [id number] Exam Date: 01/23/2024 10:03 Report Date: 01/23/2024 11:30 At the request of: GILLES STACY Procedure: US OB cervical length EXAMINATION: US OB anatomy, US OB cervical [...] 2024-06-09 MARIELLA by EDC: 2024-06-09 US/US OB cervical length IMPRESSION: 1. Single live intrauterine with growth detailed above. 2. Suboptimal visualization of the umbilical arteries, three-vessel cord, and spine due to position. Electronically authenticated by: YOUNG SWANSON Date: 01/23/2024 11:30 Dictated By: Young Swanson M.D. Signed By: 01/23/24 1132 DD/ 1130 TD/TT: Relief Mate: Procedure Note Radiology, Radiologist, MD - 01/23/2024 [place] [address] Ultrasound Report Signed Patient: DOREEN VALLECILLO JMR#: [id number] : 1995Acct:[id number] Age/Sex: 28 / FADM Date: 01/23/24 Loc: [facility] Attending Dr: Gilles Stacy D.O. Ordering Physician: Gilles Stacy D.O. Date of Service: 01/23/24 Procedure(s): US OB cervical length Accession Number(s): [id number] cc: Gilles Stacy D.O.; Physician,Non-Staff M.Missy The [address] [address] Patient Name: DOREEN VALLECILLO MRN: [facility]:[id number] date: 1995 Sex: F Assigned Patient Location: [facility] Current Patient Location: [facility] Accession/Order Number: [id number] Exam Date: 01/23/2024 10:03 Report Date: 01/23/2024 11:30 At the request of: GILLES STACY Procedure: US OB cervical length EXAMINATION: US OB anatomy, US OB cervical [...] 2024-06-09 MARIELLA by EDC: 2024-06-09 US/US OB cervical length IMPRESSION: 1. Single live intrauterine with growth detailed above. 2. Suboptimal visualization of the umbilical arteries, three-vessel cord,and spine due to position. Electronically authenticated by: YOUNG SWANSON Date: 01/23/2024 11:30 Dictated By: Young Swanson M.D. Signed By:01/23/24 1132 DD/ TD/TT: Relief Mate: us Gilles Stacy DO [facility] Final Result documented in this encounter Visit Diagnoses Not on filedocumented in this encounter Additional Health Concerns Active Problems Noted Date Diagnosed Date OB Reminders 12/26/2023 documented as of this encounter
--- OUTSIDE RECORDS SUMMARY | 2024-12-28 20:18 | XMS_ITS | Encounter Summary ---
Author Organization [facility] Address [address] [place] [address] Care Team Providers Care Rehabilitation Services Manager Name Role Phone Unavailable Primary Care Provider Unavailabl e Encounter Details Date Type Department Care Team (Late st Contact Info) Description 06/09/2024 Abstract [facility] [place] [address] Jacob Stacy, DO [address] [place], [facility] Social History Tobacco Use Types Packs/Day [...] [address] [place] [phone] Mirian Fairbanks, THEATRICAL VARIETY AGENT-SOFTWARE TEST AND VALIDATION ENGINEER [address] [place] [address] 12/30/2025 10:00 AM EDT Procedure Visit EREN TAT[facility] [address] [place] [address] Jacob Stacy, DO [address] [place] [address] documented as of this encounter Goals Goal Patient Goal Type Associated Problems Recent Progress Patient-Stated? Author Reminders Care Plan OB Reminders No Open Scheduling, Background documented as of this encounter Visit Diagnoses Not on filedocumented in this encounter Additional Health Concerns Active Problems Noted Date Diagnosed Date OB Reminders 12/26/2023 documented as of this encounter
--- OUTSIDE RECORDS SUMMARY | 2024-12-28 20:18 | XMS_ITS | Encounter Summary ---
Author Organization [facility] Address [address] [place] [address] Care Team Providers Care Pairing Machine Operator Name Role Phone Unavailable Primary Care Provider Unavailabl e Encounter Details Date Type Department Care Team (Late st Contact Info) Description 02/21/2024 Clinisync Result Encounter [facility] External Department Unsolicited Gilles Stacy, DO [address] [place] [address] Social History Tobacco Use Types Packs/Day Years [...] Dermatology [address] [place] [address] Mirian Fairbanks, POWER REGULATOR-CLINICAL TECHNOLOGIST [address] [place] [address] 12/30/2025 10:00 AM EDT Procedure Visit [facility] [address] [facility] [phone] Gilles Stacy, [address] [place] [address] documented as of this encounter Goals Goal Patient Goal Type Associated Problems Recent Progress Patient-Stated? Author Reminders Care Plan OB Reminders No Open Scheduling, Background documented as of this encounter Procedures Procedure Name Priority Date/Time Associated Diagnosis Comments US OB FOLLOW UP 02/21/2024 4:50 AM EST documented in this encounter Results * US OB FOLLOW UP (02/21/2024 4:50 AM EST) Anatomical Region Laterality Modality Radiographic Lydia ging 02/21/2024 4:50 AM EST Narrative 02/21/2024 4:53 [place] [address] Ultrasound Report Signed Patient: DOREEN VALLECILLO MR#: [id number] : 1995 Acct:[id number] Age/Sex: 28 / F ADM Date: 02/20/24 Loc: [facility] Attending Dr: Gilles Stacy D.O. Ordering Physician: Gilles Stacy D.O. Date of Service: 02/20/24 Procedure(s): US OB follow up Accession Number(s): [id number] cc: Gilles Stacy D.O.; Physician,Non-Staff M.DChi [address] [address] Patient Name: DOREEN VALLECILLO MRN: [id number] date: 1995 Sex: F Assigned Patient Location: [facility] Current Patient Location: Accession/Order Number: [id number] Exam Date: 02/20/2024 08:56 Report Date: 02/21/2024 04:50 At the request of: GILLES STACY Procedure: US OB follow up EXAMINATION: US OB follow up HISTORY: INCOMPLETE ANATOMY COMPARISON: Ultrasound OB anatomy 01/23/2024 FINDINGS: Presentation: Cephalic Heart rate: 167 bpm Observed Anatomy: Three-vessel cord, umbilical arteries, spine. GA: 24 weeks 2 days MARIELLA: 06/09/2024 US/US OB follow up IMPRESSION: 1. Single live intrauterine . 2. Adequate visualization of the three-vessel cord, umbilical arteries, and spine. No appreciable abnormality. Electronically authenticated by: YOUNG SWANSON Date: 02/21/2024 04:50 Dictated By: Young Swanson M.D. Signed By: 02/21/24452 DD/ 9 TD/TT: Firefighter: Procedure Note Radiology, Radiologist, - 02/21/2024 [place] [address] Ultrasound Report Signed Patient: DOREEN VALLECILLO JMR#: [id number] : 1995Acct:[id number] Age/Sex: 28 / FADM Date: 02/20/24 Loc: [facility] Attending Dr: Gilles Stacy D.O. Ordering Physician: Gilles Stacy D.O. Date of Service: 02/20/24 Procedure(s): US OB follow up Accession Number(s): [id number] cc: Gilles Stacy D.O.; Physician,Non-Staff [place] [address] [place] [address] Patient Name: DOREEN VALLECILLO MRN: [id number] date: 1995 Sex: F Assigned Patient Location: [facility] Current Patient Location: Accession/Order Number: [id number] Exam Date: 02/20/2024 08:56 Report Date: 02/21/2024 04:50 At the request of: GILLES STACY Procedure: US OB follow up EXAMINATION: US OB follow up HISTORY: INCOMPLETE ANATOMY COMPARISON: Ultrasound OB anatomy 01/23/2024 FINDINGS: Presentation: Cephalic Heart rate: 167 bpm Observed Anatomy: Three-vessel cord, umbilical arteries, spine. GA: 24 weeks 2 days MARIELLA: 06/09/2024 US/US OB follow up IMPRESSION: 1. Single live intrauterine . 2. Adequate visualization of the three-vessel cord, umbilical arteries,and spine. No appreciable abnormality. Electronically authenticated by: YOUNG SWANSON Date: 02/21/2024 04:50 Dictated By: Young Swanson M.D. Signed By:02/21/24452 DD/ 0450 TD/TT: Firefighter: us Gilles Stacy DO IMG XR PROCEDURES Final Result documented in this encounter Visit Diagnoses Not on filedocumented in this encounter Additional Health Concerns Active Problems Noted Date Diagnosed Date OB Reminders 12/26/2023 documented as of this encounter
[2025-01-01 10:09] LABS: Age Gdln ACOG Testing Note (.); IGP, rfx Aptima HPV ASCU Note (.)
== END 2024-12-28 20:15 | disposition home or self-care (01) ==
LOC: LAB 20:14
PROVIDERS: Visit Provider Nurse Practitioner Family
DX: Z01.419 Encounter for gynecological examination (general) (routine) without abnormal findings (principal)
CPT/HCPCS: 88175